=== PATIENT | female | born 1930 | race Caucasian/White ===

== ENCOUNTER 2016-11-27 22:36 | Emergency (ER) | payer MEDICARE, OTHER ==
[~2016-11-27] VITALS: Ht 160 cm; Wt 59.0 kg
[~2016-11-27 22:36] MED LIST: ALENDRONATE SOD70 MG PO; ATORVASTATIN CA40 MG PO; CITRACAL-VIT D1 EAC1 PO; CLOPIDOGREL75 MG PO; EFFEXOR XR37.5 MG PO; EVISTA60 MG PO; FAMOTIDINE20 MG PO; FLEXERIL10 MG PO; GABAPENTIN600 MG PO; GABAPENTIN800 MG PO; ISOSORBIDE DINI30 MG PO; ISOSORBIDE MONO30 MG PO; LEVAQUIN500 MG PO; LEVOTHYROXINE112 MCG PO; LISINOPRIL5 MG PO; MACRODANTIN25 MG PO; METOPROLOL TART25 MG PO; NEXIUM20 MG; NEXIUM20 MG PO; NEXIUM40 MG PO; NITROFURANTOIN100 M1 PO; NITROSTAT0.4 MG SL; OMEPRAZOLE20 M1 PO; PERCOCET 5-3251 EACH PO; RANITIDINE HCL150 MG PO; SENNA-TIME S T1 EACH PO; SIMVASTATIN10 MG PO; ST. JOSEPH ASPI81 M1 PO; ST. JOSEPH ASPI81 MG PO; TRAMADOL HCL50 MG PO; VENLAFAXINE HCL25 MG PO; VENLAFAXINE HCL75 MG PO; VITAMIN B-121000 MCG PO; VITAMIN D5000 UNIT PO; ZOFRAN4 MG PO
--- NOTE | 2016-11-28 08:39 | EKG ---
[facility] [address] [facility] [place] [address] Signed Sinus rhythm with marked sinus arrhythmia with occasional premature ventricular complexes ST \T\ T wave abnormality, consider lateral ischemia Abnormal ECG When compared with ECG of 07-APR-2016 19:15, premature ventricular complexes are now present T wave inversion now evident in Lateral leads Confirmed by KERRIE KABA MD ([id number]) on 11/28/2016 8:38:54 AM Electronically Signed By: KERRIE KABA MD 11/28/16 0839 PATIENT NAME: DAMIR ALEJANDRO Electrocardiogram DATE OF : 34 PHYSICIAN: KERRIE KABA MD REPORT #: [id number] REPORT IS CONFIDENTIAL AND NOT TO BE RELEASED WITHOUT AUTHORIZATION
== END 2016-11-28 00:35 | disposition home or self-care (01) ==
LOC: ED 22:36
DX: R07.2 Precordial pain (principal); E03.9 Hypothyroidism, unspecified; I25.2 Old myocardial infarction; Z79.82 Long term (current) use of aspirin; Z79.899 Other long term (current) drug therapy; Z90.49 Acquired absence of other specified parts of digestive tract; Z88.2 Allergy status to sulfonamides; Z88.5 Allergy status to narcotic agent; Z86.73 Personal history of transient ischemic attack (TIA), and cerebral infarction without residual deficits
CPT/HCPCS: 71010; 80053; 84484; 85025; 93005; 93010; 99284

== ENCOUNTER 2017-08-07 21:28 | Emergency (ER) | payer MEDICARE, OTHER ==
[~2017-08-07] VITALS: Ht 160 cm; Wt 59.0 kg
[2017-08-07] MEDS ORDERED: NORCO 5-325 TA1 EACH PO (23:25)
== END 2017-08-07 23:37 | disposition home or self-care (01) ==
LOC: ED 21:28
DX: S16.1XXA Strain of muscle, fascia and tendon at neck level, initial encounter (principal); S01.01XA Laceration without foreign body of scalp, initial encounter; Z88.2 Allergy status to sulfonamides; Z88.5 Allergy status to narcotic agent; Z79.899 Other long term (current) drug therapy; Z79.82 Long term (current) use of aspirin; Z23 Encounter for immunization; W01.198A Fall on same level from slipping, tripping and stumbling with subsequent striking against other object, initial encounter
CPT/HCPCS: 70450; 72125; 90471; 90715; 99284

== ENCOUNTER 2017-12-23 17:05 | Inpatient (IN) | payer MEDICARE, OTHER ==
[~2017-12-23] VITALS: Ht 167.6 cm; Wt 59.4 kg
--- OUTSIDE RECORDS SUMMARY | ~2017-12-23 | XMS | Encounter Summary ---
Demographics + + + | Address | [address] | | | [place] [address] | + + + | Home Phone | | + + + | Preferred Language | Unknown | + + + | Marital Status | | + + + | Yazdanism Affiliation | Unknown | + + + | Race | Unknown | + + + | Ethnic Group | Unknown | + + + Author + + + | Author | [facility] [employer] | + + + | Organization | [facility] [employer] | + + + | Address | Unknown | + + + | Phone | Unavailable | + + + Support + + +---------+ + | Name | Relationship | Address | Phone | + + +---------+ + | Get,Contact | ECON | Unknown | | + + +---------+ + Care Team Providers + +------+ + | Care Door To Door Sales Representative Name | Role | Phone | + +------+ + | Luanne Love | PCP | | + +------+ + Reason for Visit + + + | Reason | Comments | + + + | Medication Refill | | + + + Encounter Details +--------+--------+ + + + | Date | Type | Department | Care Team | Description | +--------+--------+ + + + | 11/08/ | Refill | [facility] [place] | Aidan Becker, | Medication Refill | | 2017 | | Cardiology [place] | [address] | | | | | [address] | [address], | | | | | [place] | [place] [address] | | | | | [address] | [phone] | | | | | [phone] | | | +--------+--------+ + + + [...] on file | | + + + as of this encounter Plan of Treatment +--------+---------+ + + + | Date | Type | Specialty | Care Team | Description | +--------+---------+ + + + | 02/07/ | Office | Cardiology | Brianna Stewart | | | 2018 | Visit | | [address] | | | | | | [address] | | | | | | [place] [address] | | | | | | [phone] | | | | | | | | +--------+---------+ + + + as of this encounter Visit Diagnoses Not on filein this encounter"
--- OUTSIDE RECORDS SUMMARY | ~2017-12-23 | XMS | Encounter Summary ---
Demographics + + + | Address | [address] | | | [place] [address] | + + + | Home Phone | | + + + | Preferred Language | Unknown | + + + | Marital Status | | + + + | Restoration Affiliation | Unknown | + + + | Race | Unknown | + + + | Ethnic Group | Unknown | + + + Author + + + | Author | [facility] [employer] | + + + | Organization | [facility] [employer] | + + + | Address | Unknown | + + + | Phone | Unavailable | + + + Support + + +---------+ + | Name | Relationship | Address | Phone | + + +---------+ + | Get,Contact | ECON | Unknown | | + + +---------+ + Care Team Providers + +------+ + | Care Converter Supervisor Name | Role | Phone | + [...] + | 11/08/ | Refill | [facility] [place] | Aidan Becker, | Medication Refill | | 2017 | | Cardiology [place] | [address] | | | | | [address] | [address], | | | | | [place] | [place] [address] | | | | | [address] | [phone] | | | | | [phone] | | | +--------+--------+ + + + [...] | | | | | [place] [address] | | | | | | [phone] | | | | | | | | +--------+---------+ + + + as of this encounter Visit Diagnoses Not on filein this encounter"
--- OUTSIDE RECORDS SUMMARY | ~2017-12-23 | XMS | Clinical Summary ---
Demographics + + + | Address | [address] | | | [place] [address] | + + + | Home Phone | | + + + | Preferred Language | Unknown | + + + | Marital Status | | + + + | Druze Affiliation | Unknown | + + + | Race | Unknown | + + + | Ethnic Group | Unknown | + + + Author + + + | Author | [facility] [employer] | + + + | Organization | [facility] [employer] | + + + | Address | Unknown | + + + | Phone | Unavailable | + + + Support + + +---------+ + | Name | Relationship | Address | Phone | + + +---------+ + | Get,Contact | ECON | Unknown | | + + +---------+ + Care Team Providers + +------+ + | Care Orchard Sprayer Name | Role | Phone | + [...] | e | + + +--------+---------+------+------+-------+ | levothyroxine | Take 112 mcg by | | | | | Activ | | (SYNTHROID) 112 MCG | mouth every morning | | | | | e | | tablet | before breakfast. | | | | | | + + +--------+---------+------+------+-------+ | traMADol (ULTRAM) | Take 50 mg by mouth | | | | | Activ | | 50 MG tablet | every 8 (eight) | | | | | e | | | hours as needed. | | | | | | + + +--------+---------+------+------+-------+ | cyanocobalamin | Take 1,000 mcg by | | | | | Activ | | (VITAMIN B-12) 1000 | mouth daily. | | | | | e | | MCG tablet | | | | | | | + + +--------+---------+------+------+-------+ | gabapentin | Take 800 mg by mouth | | | | | Activ | | (NEURONTIN) 800 MG | 3 (three) times | | | | | e | | tablet | daily. | | | | | | + + +--------+---------+------+------+-------+ | clopidogrel | Take 1 tablet by | 90 | 3 | 02/2 | | Activ | | (PLAVIX) 75 MG | mouth daily. | tablet | | 3/20 | | e | | tablet | | | | 16 | | | + + +--------+---------+------+------+-------+ | [...] | | | + + +--------+---------+------+------+-------+ | Cholecalciferol | Take 5,000 Units by | | | | | Activ | | 5000 UNITS capsule | mouth daily. | | | | | e | + + +--------+---------+------+------+-------+ | metoprolol | Take 1 tablet by | 180 | 3 | 11/0 | 11/0 | Activ | | (LOPRESSOR) 25 MG | mouth 2 (two) times | tablet | | 6/20 | 6/20 | e | | tablet | daily. | | | 17 | 18 | | + + +--------+---------+------+------+-------+ | isosorbide | TAKE 1 TABLET BY | 90 | 3 | /1 | 04/1 | Activ | | mononitrate (IMDUR) | MOUTH DAILY | tablet | | 0/20 | 0/20 | e | | 30 MG 24 hr tablet | | | | 18 | 19 | | + + +--------+---------+------+------+-------+ | gabapentin | Take 100 mg by mouth | | | | | Activ | | (NEURONTIN) 100 MG | 3 (three) times | | | | | e | | capsule | daily. | | | | | | + + +--------+---------+------+------+-------+ | | Take 1 tablet by | | | | | Activ | | HYDROcodone-acetamin | mouth every 6 (six) | | | | | e | | ophen (NORCO) 5-325 | hours as needed for | | | | | | | MG per tablet | Pain. | | | | | | + + +--------+---------+------+------+-------+ | simvastatin | Take 1 tablet by | 90 | 3 | 05/1 | | Activ | | (ZOCOR) 20 MG tablet | mouth nightly. | tablet | | 4/20 | | e | | | | | | 18 | | | + + +--------+---------+------+------+-------+ | famotidine | TAKE 1 TABLET BY | 180 | 1 | 08/27 | | Activ | | (PEPCID) 20 MG | MOUTH TWICE DAILY | tablet | | 07/16 | | e | | tablet | | | | 18 | | | + + +--------+---------+------+------+-------+ Active Problems + + + | Problem | Noted Date | + + + | Chronic kidney [...] | + + + + + | NSTEMI (non-ST elevated myocardial infarction) | 05/19/2015 | + + + | [...] | 05/19/2015 | + + + Encounters +--------+--------+ + + + | Date | Type | Specialty | Care Team | Description | +--------+--------+ + + + | 11/08/ | Refill | | Eugenio Javierzina, | Medication Refill | | 2017 | | | MD | | +--------+--------+ + + + from Last 3 Months [...] + + + | Blood Pressure | 126/54 | 08/09/2017 9:45 AM PDT | + + + + | Pulse | 62 | 08/09/2017 9:45 AM PDT | + + + + | Temperature | 36.8 C (98.3 F) | 05/21/2015 8:38 AM PST | + + + + | Respiratory Rate | 20 | 08/09/2017 9:45 AM PDT | + + + + | Oxygen Saturation | 95% | 08/09/2017 9:45 AM PDT | + + + + | Inhaled Oxygen | - | - | | Concentration | | | + + + + | Weight | 58.6 kg (129 lb 3.2 | 08/09/2017 9:45 AM PDT | | | oz) | | + + + + | Height | 160 cm (5' 3") | 08/09/2017 9:45 AM PDT | + + + + | Body Mass Index | 22.89 | 08/09/2017 9:45 AM PDT | + + + + Plan of Treatment +--------+---------+ + + + | Date | Type | Specialty | Care Team | Description | +--------+---------+ + + + | 02/07/ | Office | | Brianna Stewart | | | 2018 | Visit | | [address] | | | | | | [address] | | | | | | [place] [address] | | | | | | [phone] | | | | | | | [...] | | | | | (#1) | 8 | | | + + [...] | Heart | SCIENTIFIC | | | /[id number] | | Qty: 1 on 05/19/2015 by | | | [employer] | | | 322 | | Maxx Nayak MD | | | | | | | + +-------+-------+ +--------+--------+--------+ | Promus | Stent | N/A: | [employer] | | | / | | Premier-05/19/2015Implanted: | | Heart | SCIENTIFIC | | | /[id number] | | Qty: 1 on 05/19/2015 by | | | CORPORATION | | | [phone] | | Maxx [...] +------+-------+ + | MEDICARE | MEDICA | [id number] | | | [address] | | | RE | | | | [place] [address] | | | IP-OP | | | | | + +--------+ +------+-------+ + | COMMERCIAL OTHER | COMMER | [id number] | | | | | | CIAL [...] | [address] | | | [phone] | [phone] | + +--------+ +--------+ + +
--- OUTSIDE RECORDS SUMMARY | ~2017-12-23 | XMS | Clinical Summary ---
Demographics + + + | Address | [address] | | | [place] [address] | + + + | Home Phone | | + + + | Preferred Language | Unknown | + + + | Marital Status | | + + + | Shinto Affiliation | Unknown | + + + | Race | Unknown | + + + | Ethnic Group | Unknown | + + + Author + + + | Author | [employer] [employer] | + + + | Organization | [facility] [employer] | + + + | Address | Unknown | + + + | Phone | Unavailable | + + + Support + + +---------+ + | Name | Relationship | Address | Phone | + + +---------+ + | Get,Contact | ECON | Unknown | | + + +---------+ + Care Team Providers + +------+ + | Care Revenue Accountant Name | Role | Phone | + [...] | | | | | [place] [address] | | | | | | [phone] | | | | | | | [...] | Heart | SCIENTIFIC | | | /[id number] | | Qty: 1 on 05/19/2015 by | | | [employer] | | | 322 | | Maxx Nayak MD | | | | | | | + +-------+-------+ +--------+--------+--------+ | Promus | Stent | N/A: | [employer] | | | / | | Premier-05/19/2015Implanted: | | Heart | SCIENTIFIC | | | /[id number] | | Qty: 1 on 05/19/2015 by [...] +------+-------+ + | MEDICARE | MEDICA | [id number] | | | [address] | | | RE | | | | [place] [address] | | | IP-OP | | | | | + +--------+ +------+-------+ + | COMMERCIAL OTHER | COMMER | [id number] | | | | | | CIAL [...] | [address]uel | | | [phone] | [phone] | + +--------+ +--------+ + +
--- OUTSIDE RECORDS SUMMARY | ~2017-12-23 | XMS | Clinical Summary ---
Demographics + + + | Address | [address] | | | [place] [address] | + + + | Home Phone | | + + + | Preferred Language | Unknown | + + + | Marital Status | | + + + | Nondenominational Affiliation | Unknown | + + + | Race | Unknown | + + + | Ethnic Group | Unknown | + + + Author + + + | Author | [facility] [employer] | + + + | Organization | [facility] [employer] | + + + | Address | Unknown | + + + | Phone | Unavailable | + + + Support + + +---------+ + | Name | Relationship | Address | Phone | + + +---------+ + | Get,Contact | ECON | Unknown | | + + +---------+ + Care Team Providers + +------+ + | Care Grey Roll Man Name | Role | Phone | + [...] | | | | | [place] [address] | | | | | | [phone] | | | | | | | [...] | Heart | SCIENTIFIC | | | /[id number] | | Qty: 1 on 05/19/2015 by | | | [employer] | | | 322 | | Maxx Nayak MD | | | | | | | + +-------+-------+ +--------+--------+--------+ | [employer]us | Stent | N/A: | [employer] | | | / | | Premier-05/19/2015Implanted: | | Heart | SCIENTIFIC | | | /[id number] | | Qty: 1 on 05/19/2015 by [...] +------+-------+ + | MEDICARE | MEDICA | [id number] | | | [address] | | | RE | | | | [place] [address] | | | IP-OP | | | | | + +--------+ +------+-------+ + | COMMERCIAL OTHER | COMMER | [id number] | | | | | | CIAL [...] | [address]uel | | | [phone] | [phone] | + +--------+ +--------+ + +
--- OUTSIDE RECORDS SUMMARY | ~2017-12-23 | XMS | Encounter Summary ---
Demographics + + + | Address | [address] | | | [place] [address] | + + + | Home Phone | | + + + | Preferred Language | Unknown | + + + | Marital Status | | + + + | Christian Affiliation | Unknown | + + + | Race | Unknown | + + + | Ethnic Group | Unknown | + + + Author + + + | Author | [facility] [employer] | + + + | Organization | [facility] [employer] | + + + | Address | Unknown | + + + | Phone | Unavailable | + + + Support + + +---------+ + | Name | Relationship | Address | Phone | + + +---------+ + | Get,Contact | ECON | Unknown | | + + +---------+ + Care Team Providers + +------+ + | Care Stone Polisher Machine Name | Role | Phone | [...] + | 11/08/ | Refill | [facility] | Aidan Becker, | Medication Refill | | 2017 | | Cardiology [place] | [address] | | | | | [address] | [address], | | | | | [place] | [place] [address] | | | | | [address] | [phone] | | | | | [phone] | | | +--------+--------+ + + + [...] | | | | | [place] [address] | | | | | | [phone] | | | | | | | | +--------+---------+ + + + as of this encounter Visit Diagnoses Not on filein this encounter"
[~2017-12-23 17:05] MED LIST changes: +NORCO 5-325 TA1 EACH PO
--- OUTSIDE RECORDS SUMMARY | 2017-12-23 17:10 | XMS ---
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 ERadha VISIT COUNT (12 MO.) 2 [facility] Cross TOTAL 2 NOTE: Visits indicate total known visits. ED/UCC VISIT TRACKING (12 MO.) 12/23/2017 17:06 [facility] [place] TYPE: Emergency COMPLAINT: - STOMACH CRAMPS 08/07/2017 21:29 [facility] [place] TYPE: Emergency COMPLAINT: - HEAD LACERATION DIAGNOSES: - medical terminologist (current) use of aspirin - Fall on same level from slipping, tripping and stumbling with subsequent striking against other object, initial encounter - Other manager terminal (current) drug therapy - Allergy status to sulfonamides status - Encounter for immunization - Strain of muscle, fascia and tendon at neck level, initial encounter - Allergy status to narcotic agent status - Laceration without foreign body of scalp, initial encounter - Headache INPATIENT VISIT TRACKING (12 MO.) No inpatient visits to display in this time frame [email or web address]
[2017-12-23] MEDS ORDERED: GABAPENTIN100 MG PO (17:22)
[2017-12-23] MEDS ORDERED: ISOSORBIDE MONO30 MG PO (17:22)
[2017-12-23] MEDS ORDERED: TIROSINT100 MCG PO (17:23)
[2017-12-23] MEDS ORDERED: SIMVASTATIN20 MG PO (17:23)
--- NOTE | 2017-12-23 20:30 | NUR ---
PATIENT ARRIVED TO ROOM 127 VIA ER STRETCHER. TRANSFERED TO BED, NOW RESTING COMFORTABLY. BREATHING IS EVEN AND UNLABORED, DENIES NEED AT THIS THIS TIME. REPORTS OCCASIONAL PAIN IN LOWER BACK, EASILY RESTFUL WITH EYES CLOSED, FLACC SCORE OF 0. ASSESSMENT AND VITALS DONE. CALL LIGHT WITHIN REACH.
--- NOTE | 2017-12-23 21:00 | NUR ---
NOTIFIED DR. SANTOS REGARDING PATIENT'S INCREASED BUN AND CREATININE. RADIOLOGIST WISHES TO PROCEED WITH CT SCAN WITHOUT CONTRAST. IF UNABLE TO READ RESULTS FROM SCAN, WILL READDRESS USING CONTRAST IN THE MORNING, DR. SANTOS IS AGREEABLE.
--- NOTE | 2017-12-23 21:30 | NUR ---
PATIENT TAKEN TO CT VIA HOSPITAL BED.
--- NOTE | 2017-12-23 21:50 | NUR ---
PATIENT BACK FROM CT, RESTING IN BED COMFORTABLY, BREATHING IS EVEN AND UNLABORED. NO NEEDS AT THIS TIME. CALL LIGHT WITHIN REACH.
--- NOTE | 2017-12-23 23:38 | NUR ---
PATIENT ASSISTED TO BEDSIDE COMMODE, 1PA, ABLE TO VOID. NOW RESTING IN BED, BREATHING IS EVEN AND UNLABORED. DENIES FURTHER NEEDS AT THIS TIME. CALL LIGHT WITHIN REACH.
--- NOTE | 2017-12-24 01:10 | NUR ---
PATIENT RESTING IN BED, BREATHING IS EVEN AND UNLABORED. FLACC SCORE OF 0. CALL LIGHT WITHIN REACH.
--- NOTE | 2017-12-24 03:47 | NUR ---
PATIENT RESTING COMFORTABLY IN BED, BREATHING IS EVEN AND UNLABORED. FLACC SCORE OF 0. CALL LIGHT WITHIN REACH.
--- NOTE | 2017-12-24 06:00 | NUR ---
PATIENT REPORTS 8/10 PAIN IN ABD AND NAUSEA. PRN DILAUDID AND ZOFRAN GIVEN. ASSISTED PATIENT TO BEDSIDE COMODE, 1PA. NOW RESTING IN BED AGAIN, BREATHING IS EVEN AND UNLABORED. DENIES FURTHER NEEDS. CALL LIGHT WITHIN REACH.
[2017-12-24] MEDS ORDERED: PREDNISONE20 MG PO (06:22)
--- NOTE | 2017-12-24 08:40 | NUR ---
PT UP TO BATHROOM HAD BLOOD STOOL IN TOLIET AND THEN AMBULATED BACK TO BED. PT IS A ONE PERSON ASSISTANCE.
--- NOTE | 2017-12-24 10:15 | NUR ---
PT CONTIOUES TO SLEEP AT THIS TIME, PT FAMILY HAS LEFT AFTER ALL QUESTIONS ANSWERED FOR THEM.
--- NOTE | 2017-12-24 10:37 | NUR ---
ASSISTED TO FIND PT'S ROOM. WILL FOLLOW NEEDED
[2017-12-24] MEDS ORDERED: LEVOTHYROXINE100 MCG PO (10:54)
--- NOTE | 2017-12-24 12:28 | NUR ---
PT AWAKE, ALAERT AND EATING SOME JELLO. GOOD, BRIEF VISIT. SHE WAS HAVING TROUBLE EATING HER JELLO BECAUSE OF THE POSITION OF HER BED, AND IV ALARM WAS GOING. EXTENDED A BLESSING AND ALERTED JULIAN CHICAS. WILL FOLLOW NEEDED
--- NOTE | 2017-12-24 12:29 | NUR ---
PT UP TO BS COMMODE VOIDED LARGE AMOUNT AND HAD A SMALL AMOUNT OF SONDRA RED BLOOD. PT ABLE TO AMBULATED FROM BED TO BS COMMODE, WITH ONE PERSON ASSISTANCE. PT SET UP FOR LUNCH AND IS CURRENTLY WORKING ON HER CLEAR LIQUIDS.
--- NOTE | 2017-12-24 13:40 | NUR ---
PT IS BACK TO SEE PT AT THIS TIME. PT DID DRINK SOME OF HER CLEAR LIQUIDS.
--- NOTE | 2017-12-24 14:00 | NUR ---
MED REC COMPLETE WITH MELVIN REFILL HISTORY
--- NOTE | 2017-12-24 15:31 | NUR ---
PT APPEARS TO BE SLEEPING AT THIS TIME, PT IS ON TELE # 1.
--- NOTE | 2017-12-24 16:40 | NUR ---
REPORT CALLED TO EMILY AT THIS TIME, ALL QUESTIONS ANSWERED. PT TRANSPORTED VIA WC TO ROOM 119, PT PRESENT FOR THE TRANSFER SO NOW HE KNOWS WHERE SHE IS. ALL PERSOANL BELONGINGS SENT WITH PT.
--- NOTE | 2017-12-24 16:50 | NUR ---
87YR OLD WOMAN ADMITTED FROM CCU VIA WC ACCOMPANIED BY TO ROOM 119. PT IS ALERT, IN GOOD SPIRITS. ABLE TO STAND AND TRANSFER ONTO BED WITH ONE PERSON ASSIST. C/O BACK PAIN WITH ACTIVITY. STATES SHE HAS SUFFERED FROM SCIATICA PAIN FOR QUITE A WHILE. DENIES NEED TO VOID. ORIENTED TO ROOM AND CALL LIGHT. IVF PATENT TO R AC. ORDERS NOTED.
--- NOTE | 2017-12-24 19:20 | NUR ---
BEDSIDE REPORT RECEIVED FROM OFFGOING RNEMILY. PT DENIES NEEDS AT THIS TIME. CALL LIGHT WITHIN REACH. PT AGREES TO USE FOR NEEDS.
--- NOTE | 2017-12-24 21:18 | NUR ---
CHARGE NURSE ROUNDING NOTE: PT INCONTINENT OF LARGE AMOUNTS OF URINE IN BED, WEARING ATTENDS, UP TO BRP WITH ONE PERSON ASSIST AND FWW, SKIN CLEANSED VOIDED SOME MORE 350CC CLEAR URINE, BACK TO BED, TOLERATED WELL. CALL LIGHT, AND FLUIDS AT BEDSIDE, BED ALARM ON
--- NOTE | 2017-12-24 21:57 | NUR ---
PT ASSESSMENT COMPLETE. PT DENIES NAUSEA OR SOB AT THIS TIME. PT REPORTS PAIN 5/10 TO HER BACK, DESCRIBES BURNING PAIN. PRN TYLENOL ADMINISTERED. BT'S ACTIVE. PT PASSING FLATUS WHILE ATHLETIC MONITOR IN ROOM. PT DENIES ABD TENDERNESS. PT DENIES NEEDS AT THIS TIME. CALL LIGHT WITHIN REACH.
--- NOTE | 2017-12-24 23:00 | NUR ---
PT RESTING WITH EYES CLOSED. PT WAKES BRIEFLY WHILE SCHEDULED IV ABX BEING ADMINISTERED. PT DENIES NEEDS AT THIS TIME. CALL LIGHT WITHIN REACH.
--- NOTE | 2017-12-25 00:39 | NUR ---
HELPED PT TO THE BATHROOM AND BACH TO BED WITH HER FWW. BEDSIDE TABLE AND CALL LIGHT IN REACH. PT NEEDS NOTHING ELSE AT THIS TIME.
--- NOTE | 2017-12-25 01:42 | NUR ---
PT RESTING IN BED WITH EYES OPEN. PT STATES THAT SHE HAS BEEN TOSSING AND TURNING. PT RATES PAIN 4/10 TO BACK. STATES THAT REPOSITIONING HELPS WITH PAIN. PT ASSESSMENT COMPLETE. BT'S ACTIVE. PT REPORTS PAIN TO LLQ UPON PALPATION. PT DENIES FURTHER NEEDS AT THIS TIME. CALL LIGHT WITHIN REACH.
--- NOTE | 2017-12-25 02:41 | NUR ---
PT ASSSITED UP TO RESTROOM WITH 1 PERSON ASSIST AND FWW. PT VOIDS 300 MLS CLEAR YELLOW URINE AND WAS ASSSITED BACK INTO BED. PT STATES SHE IS COMFORTABLE AND CALL LIGHT ADN H20 IN REACH. PT DENIES FURTHER NEEDS.
--- NOTE | 2017-12-25 04:59 | NUR ---
PT SLEPT MAJORITY OF SHIFT. TYLENOL X 1 FOR BACK PAIN. BT'S ACTIVE, ABD SLIGHTLY TENDER. NO S/SX OF BLEEDING THIS SHIFT. CRACKLES NOTED TO LUNGS FIRST ASSESSMENT, CLEAR THE SECOND ASSESSMENT. ENCOURAGE COUGH AND DEEP BREATHING. TELE #1, SR, HR 70'S-80'S. 1 PA TO BR. UO QS. D5NS +20K @ 100. CLEAR LIQ. DIET.
--- NOTE | 2017-12-25 09:59 | NUR ---
TALKED TO DR WILLINGHAM REGARDING INCREASED BP. WILL RESTART HOME MEDS.
--- NOTE | 2017-12-25 10:11 | NUR ---
pt was assisted tot he bathroom, pt had a BM with blood in it, nurse notified. pt was then assisted back to bed and is now resting safely in bed with call light reach. pt was offered a shower and said she would think about it
--- NOTE | 2017-12-25 13:15 | NUR ---
PT AND GIVEN HOT TEA. BOTH DENIED CONCERNS.
--- NOTE | 2017-12-25 14:17 | NUR ---
pt is resting in bed safely with call light in reach. pt was offered a shower again, but still does not want to shower. assisted pt to reposition higher in bed. pt asked for a warm blanket
--- NOTE | 2017-12-25 16:47 | NUR ---
PT UP TO RESTROOM WITH POTATO SPOTTER. SBA.
--- NOTE | 2017-12-25 18:13 | NUR ---
PT 1PA WITH FWW. TOLERATING CLEAR LIQUID. TELE DC'D. BLOOD IN BOWEL MOVEMENTS. A\O. DENIES CONCERNS. IVF INFUSING WNL. DENIES PAIN OR NAUSEA. BT ACTIVE.
--- NOTE | 2017-12-25 18:21 | NUR ---
pt is resting in bed safely with call light in reach. pt asked for more ice water.
--- NOTE | 2017-12-25 21:01 | NUR ---
CHARGE NURSE ROUNDING NOTE: INCONTINENT OF URINE IN ATTENDS, UP TO BRP, VOIDED 350 CLEAR URINE, CLEAN ATTENDS IN PLACE. BACK TO BED, WARM BLANKET AND FRESH ICED WATER GIVEN ON REQUESTS. REQUIRES ONE PERSON ASSIST AND FWW. NO C/O PAIN OR SOB, TOLERATED WELL
--- NOTE | 2017-12-25 22:14 | NUR ---
UP TO BRP, VOIDED CLEAR URINE, AND HAD A SMALL SOFT BROWN BM. BACK TO BED. IV R AC 18G DC'D IT GOT ACCIDENTALLY CAUGHT IN THE BED COVERS, IV TIP INTACT. 2X2 IN PLACE.
--- NOTE | 2017-12-26 00:01 | NUR ---
resting, no c/o pain, no distress
--- NOTE | 2017-12-26 00:23 | NUR ---
scheduled antiobiotics administered. pt up to use the bathroom with sba. pt incontinent of small amount of stool, pt assisted to clean herself, and new attends placed. pt back to bed with sba. pt denies other needs at this time. call light within reach.
--- NOTE | 2017-12-26 03:04 | NUR ---
Eyes closed, awakens easily, no requets, no c/o pain, turns self in bed
--- NOTE | 2017-12-26 06:26 | NUR ---
PT CURRENTLY RESTING, EYES CLOSED, NO C/O PAIN. HAS NOT C/O PAIN AT ALL THIS SHIFT. HAS BEEN UP TO BRP SEVERAL TIMES, VOIDING CLEAR YELLOW URINE, HAS HAD SEVERAL SMALL SOFT BMS, DARK BROWN IN COLOR. INCONTINENT OF B/B X2. - NO C/O N/V, TOLERATING CLEAR FLUIDS, LUNGS DIM AT BASES. CLEARED WTIH CDB. NO COUGH PRESENT AT THIS TIME. PT REQUIRES ONE PERSON ASSIST AND FWW. COOPERATIVE WITH ASSESSMENT. NO C/O ADVERSE REACTION TO IV ABX.
--- NOTE | 2017-12-26 07:41 | NUR ---
PATIENT AWAKE, RESTING IN BED. THIS CONFORMAL PAD FORMER ASSISTED PATIENT TO REPOSITION INTO A SITTING UP POSITION IN BED. PATIENT REFUSED TO SIT UP IN CHAIR. PATIENT WASHED HANDS AND FACE WITH A WARM WASH CLOTH. PATIENT EATING BREAKFAST. CALL LIGHT IN REACH. NO OTHER NEEDS AT THIS TIME.
--- NOTE | 2017-12-26 08:46 | NUR ---
PATIENT CALLED FOR ASSISTANCE UP TO THE BATHROOM. THIS PRESS OPERATOR MEAT ASSISTED PATIENT TO BATHROOM, PATIENT PERFORMED COMPLETE BED BATH WITH BATH WIPES INDEPENDENTLY. PATIENT PERFORMED ORAL CARE AT SINK, AND COMBED HER HAIR. PATIENT DRESSED IN CLEAN GOWN. LINENS CHANGED. PATIENT BACK IN BED WITH WARM BLANKETS AND CALL LIGHT IN REACH. NO OTHER NEEDS AT THIS TIME.
--- NOTE | 2017-12-26 09:22 | NUR ---
PT AWAKE IN BED WATCHING TV AND VISITING WITH . PT DENIES PAIN OR OTHER CONCERNS. ALERT AND ORIENTED. HAD CLEAR LIX THIS AM, GEOVANNY WELL, DENIES NAUSEA. SL FLUSHES WELL. CALL LIGHT WITHIN REACH.
--- NOTE | 2017-12-26 10:17 | NUR ---
PATIENT RESTING IN BED, FAMILY IN ROOM. CALL LIGHT IN REACH. NO OTHER NEEDS AT THIS TIME.
--- NOTE | 2017-12-26 11:10 | NUR ---
PT ADVANCED TO REG DIET. ASSISTED TO ORDER LUNCH. SITTING UP IN BED VISITING WITH . DENIES NEEDS OR CONCERNS AT THIS TIME. CALL LIGHT WITHIN REACH.
--- NOTE | 2017-12-26 13:14 | NUR ---
PT ASSISTED TO AMB TO RESTROOM. ATE ALL OF REG LUNCH, GEOVANNY WELL. ASSISTED BACK TO BED. SON IN ROOM. CALL LIGHT WITHIN REACH.
--- NOTE | 2017-12-26 14:41 | NUR ---
pateint visiting with son, daughter is bringing her a chocolate milkshake because her diet has been moved up to regular and she is resting in bed, vital signs done she needs no other assistance at this time
--- NOTE | 2017-12-26 15:10 | NUR ---
PT SL AFTER INFUSION COMPLETE. ASSISTED TO RESTROOM, SBA WITH WALKER. VOIDED WITHOUT DIFFICULTY. AMB BACK TO BED, CALL LIGHT WITHIN REACH.
--- NOTE | 2017-12-26 17:44 | NUR ---
PT SITTING UP IN BED EATING DINNER, WATCHING TV. DENIES NEEDS OR CONCERNS AT THIS TIME. CALL LIGHT WITHIN REACH.
--- NOTE | 2017-12-26 21:08 | NUR ---
COOP WITH ASSEMMENT
--- NOTE | 2017-12-26 21:54 | NUR ---
PT CALLED, SAID IV LEAKING. FLUSHED IV WITH NOTABLE LEAKING FROM INSERTION SITE. DC'D WNL. PRESSURE DRESSING APPLIED.
--- NOTE | 2017-12-26 23:54 | NUR ---
RESTING, EYES CLOSED, NO RESP DISTRESS ON ROOM AIR, NEW IV SITE INTACT. CALL LIGHT AND FLUIDS WITHIN HANDS REACH
--- NOTE | 2017-12-27 00:34 | NUR ---
PATIENT JUST AMBULATED TO THE BATHROOM AND BACK AGAIN AFTER VOIDING 200MLS. CALL LIGHT IS IN REACH.
--- NOTE | 2017-12-27 01:49 | NUR ---
Resting, eyes closed, no c/o pian.
--- NOTE | 2017-12-27 02:52 | NUR ---
PATIENT UP TO THE BATHROOM WITH SBA AND FWW AND THEN BACK TO BED. CALL LIGHT IN REACH.
--- NOTE | 2017-12-27 08:00 | NUR ---
PATIENT SITING UP IN CHAIR. PATIENT ASK FOR BREAKFAST. FACE AND HANDS CLEANED. FERTILIZER MIXER ORDER HER BREAKFAST. CALL LIGHT WITHIN REACH. NO OTHER NEEDS AT THIS TIME.
--- NOTE | 2017-12-27 08:46 | NUR ---
MORNING ASSESSMENT AND MEDICATIONS DUE. THIS RN TO BEDSIDE PT RESTING IN BED. NO REQUESTS OR COMPALINTS. PT DENIES PAIN AND NAUSEA. ASSESSMENT DONE. MEDICATIONS GIVEN. ARRIVED. AND PT UPDATED ON PLAN OF CARE. PT EATING BREAKFAST. NO REQUESTS OR COMPLAINTS. CALL LIGHT WITHIN REACH. BED RAILS UP. AT BEDSIDE.
--- NOTE | 2017-12-27 09:14 | NUR ---
PATIENT RESTING IN BED. DAUGHTER IN ROOM. VITALS AND I&O DONE. CALL LIGHT WITHIN REACH. NO OTHER NEEDS AT THIS TIME.
[2017-12-27] MEDS ORDERED: LEVAQUIN250 MG PO (10:45)
[2017-12-27] MEDS ORDERED: METRONIDAZOLE500 MG PO (10:46)
--- NOTE | 2017-12-27 11:03 | NUR ---
DISCHARGE INSTRUCTIONS REVIEWED WITH PT AND PT AND VERBALIZE UNDERSTANDING OF INSTRUCTIONS AND STATE THEIR QUESTIONS HAVE BEEN ANSWERED. PT ASSITED UP TO RESTROOM. PIV DC'D PER PROTOCOL. GAUZE AND COBAN APPLIED. VITALS TAKEN. PT DRESSING WITH ASSISTANCE FROM . NO ADDITIONAL REQUESTS OR COMPLAINTS AT THSI TIME. WAITING FOR PHARMACIST CONSULT.
--- NOTE | 2017-12-27 12:00 | NUR ---
PT DRESSED AND READY FOR DISCHARGE. PHARMACIST HAS VISITED. PT TRANSFERES SELF TO WHEEL CHAIR AND STATES ALL HER QUESTIONS HAVE BEEN ANSWERED. PT WHEELED FROM MED/SURG.
--- NOTE | 2017-12-27 13:21 | NUR ---
PT LAYING QUIETLY IN BED, WATCHING TV. PT IS VERY FRIENDLY, MENTIONED THAT SHE IS TO BE DC'D TODAY. SHE ALSO SAID THAT SHE IS FEELING MUCH BETTER-SAID WITH A BIG SMILE! EXTENDED A BLESSING, WILL FOLLOW NEEDED
== END 2017-12-27 12:00 | disposition home or self-care (01) | DRG 379 ==
LOC: ED 17:05 → CCU 19:55 → MS 12-24 16:54
PROVIDERS: ADMIT Internal Medicine
DX: K57.93 Diverticulitis of intestine, part unspecified, without perforation or abscess with bleeding (principal); D64.9 Anemia, unspecified; E03.9 Hypothyroidism, unspecified; D50.9 Iron deficiency anemia, unspecified; E78.5 Hyperlipidemia, unspecified; I25.10 Atherosclerotic heart disease of native coronary artery without angina pectoris; Z95.5 Presence of coronary angioplasty implant and graft; Z79.02 Long term (current) use of antithrombotics/antiplatelets; Z79.82 Long term (current) use of aspirin; Z79.891 Long term (current) use of opiate analgesic; Z79.899 Other long term (current) drug therapy; Z88.5 Allergy status to narcotic agent; Z88.2 Allergy status to sulfonamides
CPT/HCPCS: 36415; 74176; 80048; 80053; 85025; 85610; 85730; 86850; 86900; 86901; 96374; 96375; 99285; J1170; J1956; J2405

== ENCOUNTER 2019-02-11 20:07 | Emergency (ER) | payer MEDICARE, OTHER ==
[~2019-02-11] VITALS: Ht 167.6 cm; Wt 59.0 kg
--- OUTSIDE RECORDS SUMMARY | ~2019-02-11 | XMS | Encounter Summary ---
Demographics + + + | Address | [address] | | | [place] [address] | + + + | Home Phone | | + + + | Preferred Language | Unknown | + + + | Marital Status | Unknown | + + + | Congregation Affiliation | Unknown | + + + | Race | Unknown | + + + | Ethnic Group | Unknown | + + + Author + + + | Author | [facility] | | | and [place] | + + + | Organization | [facility] | | | and [place] | [...] Team Providers + +------+ + | Care Passenger Service Agent Name | Role | Phone | + +------+ + | Luanne Love | PCP | | | PA | | | + +------+ + Encounter Details +--------+ + + + + | Date | Type | Department | Care Team | Description | +--------+ + + + + | 01/27/ | Orders Only | [facility] | Brianna Stewart | | | 2018 | | [address] | [address] | | | | | [address] | MICHELLE KAUFMAN | | | | | [place], [place] | [place] [address] | | | | | [address] | [phone] | | | | | [phone] | | | +--------+ + + + + Social History + +-------+ +--------+------+ | Tobacco Use | Types | Packs/Day | Years | Date | | | | | Used | | + +-------+ +--------+------+ | Never Assessed | | | | | + +-------+ [...] as of this encounter Plan of Treatment Not on filedocumented as of this encounter Procedures + +--------+ + + + | Procedure Name | Priori | Date/Time | Associated Diagnosis | Comments | | | ty | | | | + +--------+ + + + | ECHO INTERPRETATION | Routin | 01/27/2018 | | Results for this | | OF OUTSIDE FILMS | e | 11:59 AM | | procedure are in the | | | | PDT | | results section. | + +--------+ + + + documented in this encounter Results ECHO Interpretation of Outside Films (01/27/2018 11:59 AM PDT) + + | Specimen | + + | | + + + + + | Impressions | Performed At | + + + | 1. The left ventricle is normal in size, mildly impaired systolic | | | function EF 45-50%. Severe hypokinesis of the inferior and inferobasal | | | segments. 2. The right ventricle is normal in size and function. 3. | | | There is no pericardial effusion. | | + + + + + + | Narrative | Performed At | + + + | Patient Name: DAMIR ALEJANDRO Date of : 1930 | | | Performing Physician: Aidan Becker | | | | | | INDICATIONS CAD CONCLUSIONS 1. The | | | left ventricle is normal in size, mildly impaired systolic function EF | | | 45-50%. Severe hypokinesis of the inferior and inferobasal segments. | | | 2. The right ventricle is normal in size and function. 3. There is | | | no pericardial effusion. FINDINGS -------- ECG rhythm: Sinus | | | rhythm. Study: A 2-dimensional transthoracic echocardiogram with | | | m-mode, spectral and color flow Doppler was perfomed. Study: This was | | | a technically difficult study with suboptimal views. Left Ventricle: | | | Overall left ventricular systolic function is mildly impaired with, | | | an EF estimated around 45-50%. Left Ventricle: The left ventricle | | | cavity size is normal. Left Ventricle: Left ventricular wall | | | thickness is normal. Left Ventricle: Inferior and inferobasal severe | | | hypokinesis. Right Ventricle: The right ventricle is normal in size | | | and function. Left Atrium: The left atrium is normal in size. Right | | | Atrium: The right atrium is normal in size. Aortic Valve: The aortic | | | valve is trileaflet. Aortic Valve: There is mild aortic | | | regurgitation. Aortic Valve: There is no evidence of aortic stenosis. | | | Mitral Valve: Mild mitral regurgitation is present. Mitral Valve: | | | Mild mitral annular calcification present. Tricuspid Valve: The | | | tricuspid valve appears structurally normal. Tricuspid Valve: | | | Pulmonary artery systolic pressure could not be assessed due to the | | | absence of adequate TR jet. Pulmonic Valve: The pulmonic valve was | | | not well visualized. Pulmonic Valve: Mild pulmonic regurgitation. | | | Pericardium: There is no pericardial effusion. Pericardium: No | | | pleural effusion seen. IVC/Hepatic Veins: The inferior vena cava is | | | normal in size and collapses > 50 % with sniff, indicating normal | | | central venous pressures. Aorta: The aortic root, ascending aorta and | | | aortic arch are normal. MEASUREMENTS Ao asc: | | | 3.05 cm Ao sinus: 2.[address] junct: 2.39 cm IVC: 1.39 | | | cm LA Diam: 2.28 cm EDV(Teich): 139.33 ml IVSd: 0.81 cm | | | LVIDd: 5.36 cm LVPWd: 0.48 cm LVOT Area: 3.17 cm2 LVOT | | | Diam: 2.01 cm %FS: 13.00 % EF(Teich): 27.65 % ESV(Teich): | | | 100.79 ml LVIDs: 4.66 cm SV(Teich): 38.53 ml RVIDd: | | | 2.57 cm LAESV(A-L): 31.09 ml LAESV Index (A-L): 19.31 ml/m2 | | | LAAs A2C: 11.42 cm2 LAESV A-L A2C: 27.79 ml LALs A2C: 3.98 | | | cm LAAs A4C: 12.18 cm2 LAESV A-L A4C: 33.17 ml LALs A4C: | | | 3.80 cm RAAs: 8.87 cm2 RAESV A-L: 20.88 ml RAESV MOD: | | | 21.09 ml RALs: 3.19 cm TAPSE: 1.39 cm AV maxP.26 mmHg | | | AV meanP.80 mmHg AV Vmax: 1.03 m/s AV Vmean: 0.61 m/s | | | AV VTI: 18.51 cm ROSIE Vmax: 1.99 cm2 ROSIE (VTI): 2.59 cm2 | | | AVAI (Vmax): 0.00 cm2/m2 AVAI (VTI): 0.00 cm2/m2 LVOT maxPG: | | | 1.68 mmHg LVOT meanP.91 mmHg LVSI Dopp: 29.78 ml/m2 | | | LVSV Dopp: 47.95 ml LVOT Vmax: 0.64 m/s LVOT Vmean: 0.44 | | | m/s LVOT VTI: 15.11 cm MV A Zack: 0.91 m/s MV Dec Hays: | | | 3.30 m/s2 MV DecT: 110.08 ms MV E Zack: 0.36 m/s MV E/A Ratio: | | | 0.39 MV PHT: 31.92 ms MVA By PHT: 6.89 cm2 Septal e': | | | 0.02 m/s Septal E/e': 17.87 Nibbler Operator: DBS Authenticated | | | by: Aidan [facility] Report Date/Time: 01-27-2018 20:31:19 | | + + + + + | Procedure Note | + + | Rogers Haddad - 11/17/2018 4:44 PM PDT Patient Name: Aissatou ALEJANDRO of | | : 1930 Performing Physician: Aidan | | Eugenio INDICATIONS------ | | -----CAD CONCLUSIONS 1. The left ventricle is normal in size, mildly impaired | | systolic function EF 45-50%. Severe hypokinesis of the inferior and inferobasal | | segments.2. The right ventricle is normal in size and function.3. There is no | | pericardial effusion. FINDINGS--------ECG rhythm: Sinus rhythm.Study: A 2-dimensional | | transthoracic echocardiogram with m-mode, spectral and color flow Doppler was | | perfomed.Study: This was a technically difficult study with suboptimal views.Left | | Ventricle: Overall left ventricular systolic function is mildly impaired with, an EF | | estimated around 45-50%.Left Ventricle: The left ventricle cavity size is normal.Left | | Ventricle: Left ventricular wall thickness is normal.Left Ventricle: Inferior and | | inferobasal severe hypokinesis.Right Ventricle: The right ventricle is normal in size | | and function.Left Atrium: The left atrium is normal in size.Right Atrium: The right | | atrium is normal in size.Aortic Valve: The aortic valve is trileaflet.Aortic Valve: | | There is mild aortic regurgitation.Aortic Valve: There is no evidence of aortic | | stenosis.Mitral Valve: Mild mitral regurgitation is present.Mitral Valve: Mild mitral | | annular calcification present.Tricuspid Valve: The tricuspid valve appears structurally | | normal.Tricuspid Valve: Pulmonary artery systolic pressure could not be assessed due to | | the absence of adequate TR jet.Pulmonic Valve: The pulmonic valve was not well | | visualized.Pulmonic Valve: Mild pulmonic regurgitation.Pericardium: There is no | | pericardial effusion.Pericardium: No pleural effusion seen.IVC/Hepatic Veins: The | | inferior vena cava is normal in size and collapses > 50 % with sniff, indicating normal | | central venous pressures.Aorta: The aortic root, ascending aorta and aortic arch are | | normal. MEASUREMENTS Ao asc: 3.05 cmAo sinus: 2.[address] junct: 2.39 | | cmIVC: 1.39 cmLA Diam: 2.28 cmEDV(Teich): 139.33 mlIVSd: 0.81 cmLVIDd: 5.36 | | cmLVPWd: 0.48 cmLVOT Area: 3.17 [id number] Diam: 2.01 cm%FS: 13.00 %EF(Teich): | | 27.65 %ESV(Teich): 100.79 mlLVIDs: 4.66 cmSV(Teich): 38.53 mlRVIDd: 2.57 | | cmLAESV(A-L): 31.09 mlLAESV Index (A-L): 19.31 ml/m2LAAs A2C: 11.42 [id number] A-L | | A2C: 27.79 mlLALs A2C: 3.98 cmLAAs A4C: 12.18 [id number] A-L A4C: 33.17 mlLALs | | A4C: 3.80 cmRAAs: 8.87 qt2SBIZG A-L: 20.88 mlRAESV MOD: 21.09 mlRALs: 3.19 | | cmTAPSE: 1.39 cmAV maxP.26 mmHgAV meanP.80 mmHgAV Vmax: 1.03 m/Damaris | | Vmean: 0.61 m/Damaris VTI: 18.51 cmAVA Vmax: 1.99 cm2AVA (VTI): 2.59 [id number] (Vmax): | | 0.00 cm2/m2AVAI (VTI): 0.00 cm2/m2LVOT maxP.68 mmHgLVOT meanP.91 | | mmHgLVSI Dopp: 29.78 ml/m2LVSV Dopp: 47.95 mlLVOT Vmax: 0.64 m/sLVOT Vmean: 0.44 | | m/sLVOT VTI: 15.11 cmMV A Zack: 0.91 m/sMV Dec [place]ays: 3.30 m/s2MV DecT: 110.08 | | msMV E Zack: 0.36 m/sMV E/A Ratio: 0.39MV PHT: 31.92 msMVA By PHT: 6.89 [id number] | | e': 0.02 m/sSeptal E/e': 17.87 Nibbler Operator: DBSAuthenticated by: Aidan | | [facility] Date/Time: 01-27-2018 20:31:19 IMPRESSION: 1. The left ventricle is normal | | in size, mildly impaired systolic function EF 45-50%. Severe hypokinesis of the | | inferior and inferobasal segments.2. The right ventricle is normal in size and | | function.3. There is no pericardial effusion. | |Aorta: The aortic root, ascending aorta and aortic arch are normal. | | | |MEASUREMENTS | | | |Ao asc: 3.05 cm | |Ao sinus: 2.79 cm | |Ao st junct: 2.39 cm | |IVC: 1.39 cm | |LA Diam: 2.28 cm | |EDV(Teich): 139.33 ml | |IVSd: 0.81 cm | |LVIDd: 5.36 cm | |LVPWd: 0.48 cm | |LVOT Area: 3.17 cm2 | |LVOT Diam: 2.01 cm | |%FS: 13.00 % | |EF(Teich): 27.65 % | |ESV(Teich): 100.79 ml | |LVIDs: 4.66 cm | |SV(Teich): 38.53 ml | |RVIDd: 2.57 cm | |LAESV(A-L): 31.09 ml | |LAESV Index (A-L): 19.31 ml/m2 | |LAAs A2C: 11.42 cm2 | |LAESV A-L A2C: 27.79 ml | |LALs A2C: 3.98 cm | |LAAs A4C: 12.18 cm2 | |LAESV A-L A4C: 33.17 ml | |LALs A4C: 3.80 cm | |RAAs: 8.87 cm2 | |RAESV A-L: 20.88 ml | |RAESV MOD: 21.09 ml | |RALs: 3.19 cm | |TAPSE: 1.39 cm | |AV maxP.26 mmHg | |AV meanP.80 mmHg | |AV Vmax: 1.03 m/s | |AV Vmean: 0.61 m/s | |AV VTI: 18.51 cm | |ROSIE Vmax: 1.99 cm2 | |ROSIE (VTI): 2.59 cm2 | |AVAI (Vmax): 0.00 cm2/m2 | |AVAI (VTI): 0.00 cm2/m2 | |LVOT maxP.68 mmHg | |LVOT meanP.91 mmHg | |LVSI Dopp: 29.78 ml/m2 | |LVSV Dopp: 47.95 ml | |LVOT Vmax: 0.64 m/s | |LVOT Vmean: 0.44 m/s | |LVOT VTI: 15.11 cm | |MV A Zack: 0.91 m/s | |MV Dec Hays: 3.30 m/s2 | |MV DecT: 110.08 ms | |MV E Zack: 0.36 m/s | |MV E/A Ratio: 0.39 | |MV PHT: 31.92 ms | |MVA By PHT: 6.89 cm2 | |Septal e': 0.02 m/s | |Septal E/e': 17.87 | | | |Nibbler Operator: DBS | |Authenticated by: Aidan Becker | |Report Date/Time: 01-27-2018 20:31:19 | | | |IMPRESSION: | |1. The left ventricle is normal in size, mildly impaired systolic function EF 45-50%. Sever e hypokinesis of the inferior and inferobasal segments. | |2. The right ventricle is normal in size and function. | |3. There is no pericardial effusion. | + + documented in this encounter Visit Diagnoses Not on filedocumented in this encounter"
--- OUTSIDE RECORDS SUMMARY | ~2019-02-11 | XMS | Encounter Summary ---
Demographics + + + | Address | [address] | | | [place] [address] | + + + | Home Phone | | + + + | Preferred Language | Unknown | + + + | Marital Status | Unknown | + + + | Taoist Affiliation | Unknown | + + + | Race | Unknown | + + + | Ethnic Group | Unknown | + + + Author + + + | Author | [facility] | | | and [place] | + + + | Organization | [facility] | | | and [place] | [...] Team Providers + +------+ + | Care Heel Sprayer First Name | Role | Phone | + [...] [address] | | | | | [address] | [address] | | | | | [address] | [place] [address] | | | | | [place] | [phone] | | | | | [address] | | | | | | [phone] | | | +--------+--------+ + + + [...] Not on filedocumented as of this encounter Visit Diagnoses Not on filedocumented in this encounter"
--- OUTSIDE RECORDS SUMMARY | ~2019-02-11 | XMS | Encounter Summary ---
Demographics + + + | Address | [address] | | | [place] [address] | + + + | Home Phone | | + + + | Preferred Language | Unknown | + + + | Marital Status | Unknown | + + + | Nondenominational Affiliation | Unknown | + + + | Race | Unknown | + + + | Ethnic Group | Unknown | + + + Author + + + | Author | [facility] | | | and [place] | + + + | Organization | [facility] | | | and [place] [...] Team Providers + +------+ + | Care Capacity Management Specialist Name | Role | Phone | [...] MICHELLE KAUFMAN | | | | | [place], [place] | [place] [address] | | | | | [address] | [phone] | | | | | [phone] | | | +--------+ + + + [...] MV A Zack: 0.91 m/s MV Dec [place]: | | | 3.30 m/s2 MV DecT: 110.08 ms MV E Zack: 0.36 m/s MV E/A Ratio: | | | 0.39 MV PHT: 31.92 ms MVA By PHT: 6.89 cm2 Septal e': | | | 0.02 m/s Septal E/e': 17.87 Pre Sales Technical Engineer: DBS Authenticated | | | by: Aidan [facility] Report Date/Time: 01-27-2018 20:31:19 | | [...] | | cmLVPWd: 0.48 cmLVOT Area: 3.17 [id number] Diam: 2.01 cm%FS: 13.00 %EF(Teich): | | 27.65 %ESV(Teich): 100.79 mlLVIDs: 4.66 cmSV(Teich): 38.53 mlRVIDd: 2.57 | | cmLAESV(A-L): 31.09 mlLAESV Index (A-L): 19.31 ml/m2LAAs A2C: 11.42 [id number] A-L | | A2C: 27.79 mlLALs A2C: 3.98 cmLAAs A4C: 12.18 tm5ISKAD A-L A4C: 33.17 mlLALs | | A4C: 3.80 cmRAAs: 8.87 [id number] A-L: 20.88 mlRAESV MOD: 21.09 mlRALs: 3.19 | | cmTAPSE: 1.39 cmAV maxP.26 mmHgAV meanP.80 mmHgAV Vmax: 1.03 m/Damaris | | Vmean: 0.61 m/Damaris VTI: 18.51 cmAVA Vmax: 1.99 cm2AVA (VTI): 2.59 qz5EREN (Vmax): | | 0.00 cm2/m2AVAI (VTI): 0.00 cm2/m2LVOT maxP.68 mmHgLVOT meanP.91 | | mmHgLVSI Dopp: 29.78 ml/m2LVSV Dopp: 47.95 mlLVOT Vmax: 0.64 m/sLVOT Vmean: 0.44 | | m/sLVOT VTI: 15.11 cmMV A Zack: 0.91 m/sMV Dec [place]: 3.30 m/s2MV DecT: 110.08 | | msMV E Zack: 0.36 m/sMV E/A Ratio: 0.39MV PHT: 31.92 msMVA By PHT: 6.89 [id number] | | e': 0.02 m/sSeptal E/e': 17.87 Pre Sales Technical Engineer: DBSAuthenticated by: Aidan | | [facility] Date/Time: 01-27-2018 20:31:19 IMPRESSION: 1. The left [...] A Zack: 0.91 m/s | |MV Dec [place]: 3.30 m/s2 | |MV DecT: 110.08 ms | |MV E Zack: 0.36 m/s | |MV E/A Ratio: 0.39 | |MV PHT: 31.92 ms | |MVA By PHT: 6.89 cm2 | |Septal e': 0.02 m/s | |Septal E/e': 17.87 | | | |Pre Sales Technical Engineer: DBS | |Authenticated by: Aidan Becker | [...]
--- OUTSIDE RECORDS SUMMARY | ~2019-02-11 | XMS | Clinical Summary ---
Demographics + + + | Address | [address] | | | [place] [address] | + + + | Home Phone | | + + + | Preferred Language | Unknown | + + + | Marital Status | | + + + | Synagogue Affiliation | Unknown | + + + | Race | Unknown | + + + | Ethnic Group | Unknown | + + + Author + + + | Author | [facility] (Historical as of | | | 11-12-18) | + + + | Organization | [facility] (Historical as of | | | 11-12-18) [...] Team Providers + +------+ + | Care Literacy Coordinator Name | Role | Phone | [...] Vaccine: Influenza | | | | | (#1) | 9 | | | + + + + [...] | Heart | SCIENTIFIC | | | /[id number] | | Qty: 1 on 05/19/2015 by | | | [employer] | | | 322 | | Maxx Nayak MD | | | | | | | + +-------+-------+ +--------+--------+--------+ | Promus | Stent | N/A: | [place] | | | / | | Premier-05/19/2015Implanted: | | Heart | SCIENTIFIC | | | /[id number] | | Qty: 1 on 05/19/2015 by | | | [employer] | | | [phone] | | Maxx [...] +------+-------+ + | MEDICARE | MEDICA | [id number] | | | [address] | | | RE | | | | [place] [address] | | | IP-OP | | | | | + +--------+ +------+-------+ + | COMMERCIAL OTHER | COMMER | [id number] | | | | | | CIAL [...] [phone] | [place] | | | maneul | | | [phone] | [phone] | + +--------+ +--------+ + +
--- OUTSIDE RECORDS SUMMARY | ~2019-02-11 | XMS | Encounter Summary ---
Demographics + + + | Address | [address] | | | [place] [address] | + + + | Home Phone | | + + + | Preferred Language | Unknown | + + + | Marital Status | Unknown | + + + | Confucianism Affiliation | Unknown | + + + | Race | Unknown | + + + | Ethnic Group | Unknown | + + + Author + + + | Author | [facility] | | | and [place] | + + + | Organization | [facility] | | | and [place] | [...] Team Providers + +------+ + | Care Energy Assistant Name | Role | Phone | [...] Transaction, | | | | | [address] | Provider Unknown | | | | | [place] | | | | | | [phone] | (Fax) | | | | | [phone] | | | +--------+ + + + [...]
--- OUTSIDE RECORDS SUMMARY | ~2019-02-11 | XMS | Clinical Summary ---
Demographics + + + | Address | [address] | | | [place] [address] | + + + | Home Phone | | + + + | Preferred Language | Unknown | + + + | Marital Status | Unknown | + + + | Jewish Affiliation | Unknown | + + + | Race | Unknown | + + + | Ethnic Group | Unknown | + + + Author + + + | Author | [facility] | | | and [place] | + + + | Organization | [facility] | | | and [place] [...] Team Providers + +------+ + | Care Title One Reading Teacher Name | Role | Phone | + [...] | | + + + +---------+------+------+-------+ | aspirin (ASPIRIN | Take 81 mg by mouth | | 0 | 04/30 | | Activ | | LOW DOSE) 81 MG | daily. | | | 04/17 | | e | | tablet | | | | 16 | | | + + + +---------+------+------+-------+ | cyanocobalamin | Take 1,000 mcg by | | 0 | 02/2 | | Activ | | (VITAMIN B-12) 1000 | mouth daily. | | | 04/17 | | e | | MCG tablet | | | | 16 | | | + + + +---------+------+------+-------+ | famotidine | TAKE 1 TABLET BY | 180 | 1 | 08/27 | | Activ | | (PEPCID) 20 mg | MOUTH TWICE DAILY | tablet | | 07/16 | | e | | tablet | | | | 18 | | | + + + +---------+------+------+-------+ | levothyroxine | Take 75 mcg by mouth | | 0 | 11 | | Activ | | (SYNTHROID) 75 MCG | every morning | | | 220 | | e | | tablet | before breakfast. | | | 18 | | | + + + +---------+------+------+-------+ | mirtazapine | Take 1 tablet by | | 0 | / | | Activ | | (REMERON) 15 MG | mouth daily. | | | 8/20 | | e | | tablet | | | | 18 | | | + + + +---------+------+------+-------+ | simvastatin | Take 1 tablet by | 30 | 1 | 11 | | Activ | | (ZOCOR) 20 mg tablet | mouth nightly. | tablet | | 3/ | | e | | | | | | 19 | | | + + + +---------+------+------+-------+ | metoprolol | Take 1 tablet by | 180 | 3 | 11/0 | 01/27 | Expir | | tartrate (LOPRESSOR) | mouth 2 (two) times | tablet | | 6/ | 2/20 | ed | | 25 mg tablet | daily. | | | 17 | 19 | | + + + +---------+------+------+-------+ | simvastatin | Take 1 tablet by | 90 | 1 | 05/1 | 01/27 | Disco | | (ZOCOR) 20 mg tablet | mouth nightly. | tablet | | 6/20 | 3/20 | ntinu | | | | | | 19 | 19 | ed | | | | | | | | (Reor | | | | | | | | khang) | + + + +---------+------+------+-------+ Active Problems [...] hypertension | 05/19/2015 | + + + | Hyperlipidemia | 05/19/2015 | + + + | Hypothyroid | 05/19/2015 | + + + Encounters +--------+ + + + + | Date | Type | Specialty | Care Team | Description | +--------+ + + + + | 02/08/ | Refill | Cardiology | Brianna Stewart | Medication Refill | | 2018 | | | EKATERINA Ko | | +--------+ + + + + | 11/11/ | Orders Only | Cardiology | Brianna Stewart | Mixed | | 2018 | | | EKATERINA Ko | hyperlipidemia; | | | | | | 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 | + + Last Filed Vital Signs + + + + + | Vital Sign | Reading | Time Taken | Comments | + + + + + | Blood Pressure | 126/62 | 02/07/2018 10:13 AM | | | | | PST | | + + + + + | Pulse | 64 | 02/07/2018 10:13 AM | | | [...] 56.5 kg (124 lb 9.6 | 02/07/2018 10:13 AM | | | | oz) | PST | | + + + + + | Height | 160 cm (5' 3") | 02/07/2018 10:13 AM | | | | | PST | | + + + + + | Body Mass Index | 22.07 | 02/07/2018 10:13 AM | | | [...] | 8 | | | | of 2 - PCV13) | | | | + + + + + | Adult Annual | | | | | Wellness Visit | 9 | | | + + + + + | Vaccine: Influenza | | | | | (#1) | 9 | | | + + + + + Results Not on filefrom Last 3 Months Insurance + +--------+ +--------+ +---------+--------+ | Payer | Benefi | Subscriber | Effect | Phone | Address | Type | | | t Plan | ID | casimiro | | | | | | / | | Dates | | | | | | Group | | | | | | + +--------+ +--------+ +---------+--------+ | MEDICARE | MEDICA | [id number] | 09/26/18 | [phone] | | Medica | | | RE | | 98-Pre | 5 | | re | | | PART A | | sent | | | | | | AND B | | | | | | + +--------+ +--------+ +---------+--------+ | [employer] | AMERIC | [id number] | | [phone] | Indemn | [...] al/Fam | | 1931 | [phone] | [place] | | | manuel | | | 4 (Home) | [id number] | + +--------+ +--------+ + +
--- OUTSIDE RECORDS SUMMARY | ~2019-02-11 | XMS | Encounter Summary ---
Demographics + + + | Address | [address] | | | [place] [address] | + + + | Home Phone | | + + + | Preferred Language | Unknown | + + + | Marital Status | Unknown | + + + | Denominational Affiliation | Unknown | + + + | Race | Unknown | + + + | Ethnic Group | Unknown | + + + Author + + + | Author | [facility] | | | and [place] | + + + | Organization | [facility] | | | and [place] [...] Team Providers + +------+ + | Care Mechanical Design Technician Name | Role | Phone | [...] + + | 02/08/ | Refill | [facility] | Brianna Stewart | Medication Refill | | 2019 | | CARDIOLOGY [place] | [address] | | | | | [address] | [address] | | | | | [address] | [place] [address] | | | | | [place] | [phone] | | | | | [address] | | | | | | [phone] | | | +--------+--------+ + + + [...]
--- OUTSIDE RECORDS SUMMARY | ~2019-02-11 | XMS | Encounter Summary ---
Demographics + + + | Address | [address] | | | [place] [address] | + + + | Home Phone | | + + + | Preferred Language | Unknown | + + + | Marital Status | Unknown | + + + | Rastafarian Affiliation | Unknown | + + + | Race | Unknown | + + + | Ethnic Group | Unknown | + + + Author + + + | Author | [facility] | | | and [place] | + + + | Organization | [facility] | | | and [...] Team Providers + +------+ + | Care Vehicle Technician Name | Role | Phone | + +------+ + | Luanne Love | PCP | | | PA | | | + +------+ + Encounter Details +--------+ + + + + | Date | Type | Department | Care Team | Description | +--------+ + + + + | 09/09/ | Orders Only | [facility] | Aidan Becker, | | | 2018 | | CARDIOLOGY [place] | [address] | | | | | [address] | [facility] [place] | | | | | [place] | [address] | | | | | [address] | | | | | | [phone] | | | +--------+ + + + [...]
--- OUTSIDE RECORDS SUMMARY | ~2019-02-11 | XMS | Encounter Summary ---
Demographics + + + | Address | [address] | | | [place] [address] | + + + | Home Phone | | + + + | Preferred Language | Unknown | + + + | Marital Status | Unknown | + + + | Bahai Affiliation | Unknown | + + + | Race | Unknown | + + + | Ethnic Group | Unknown | + + + Author + + + | Author | [facility] | | | and [place] | + + + | Organization | [facility] | | | and [place] [...] Team Providers + +------+ + | Care Ukrainian Folk Arts Instructor Name | Role | Phone | + +------+ + | Luanne Love | PCP | | | PA | | | + +------+ + Encounter Details +--------+ + + + + | Date | Type | Department | Care Team | Description | +--------+ + + + + | 11/11/ | Orders Only | [facility] | Brianna Stewart | 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[place] | [address] | hyperlipidemia; | | | | [address] | [address] | Atherosclerotic | | | | [address] | [place] [address] | heart disease of | | | | [place], [place] | [phone] | [place] coronary | | | | [address] | | artery with angina | | | | [phone] | | pectoris (HCC); Old | | [...] as of this encounter Plan of Treatment + +------+--------+ + + | Name | [...] of | | | | | | [place] coronary | | | | | | [...] + + | 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
--- OUTSIDE RECORDS SUMMARY | ~2019-02-11 | XMS | Encounter Summary ---
Demographics + + + | Address | [address] | | | [place] [address] | + + + | Home Phone | | + + + | Preferred Language | Unknown | + + + | Marital Status | Unknown | + + + | Jewish Affiliation | Unknown | + + + | Race | Unknown | + + + | Ethnic Group | Unknown | + + + Author + + + | Author | [facility] | | | and [place] | + + + | Organization | [facility] | | | and [place] [...] Team Providers + +------+ + | Care House Painter Name | Role | Phone | + [...] [place] | | | | | | [address] | (Fax) | | | | | [phone] | | | +--------+ + + + [...]
--- OUTSIDE RECORDS SUMMARY | ~2019-02-11 | XMS | Encounter Summary ---
Demographics + + + | Address | [address] | | | [place] [address] | + + + | Home Phone [...] | Organization | [facility] | | | and [place] | [...] Team Providers + +------+ + | Care Patient Navigator Name | Role | Phone | + +------+ + | Luanne Love | PCP | | | [place] | | | + +------+ + Encounter Details +--------+ + + + + | Date | Type | Department | Care Team | Description | +--------+ + + + + | 05/21/ | Orders Only | [facility] | Maxx Nayak MD | | | 2016 | | CARDIOLOGY [place] | [address] | | | | | [address] | [place] [address] | | | | | [place], [place] | [phone] | | | | | [address] | | | | | | [phone] | | | +--------+ + + + [...]
--- OUTSIDE RECORDS SUMMARY | ~2019-02-11 | XMS | Encounter Summary ---
Demographics + + + | Address | [address] | | | [place] [address] | + + + | Home Phone | | + + + | Preferred Language | Unknown | + + + | Marital Status | Unknown | + + + | Sabianist Affiliation | Unknown | + + + | Race | Unknown | + + + | Ethnic Group | Unknown | + + + Author + + + | Author | [facility] | | | and [place] | + + + | Organization | [facility] | | | and [place] | + + + | Address | Unknown | + + + | Phone | Unavailable | + + + Support + + +---------+ + | Name | Relationship | Address | Phone | + + +---------+ + | Ejffry Juarez | ECON | Unknown | | + + +---------+ + Care Team Providers + +------+ + | Care Nitroglycerin Supervisor Name | Role | Phone | + +------+ + | Luanne Love | PCP | | | [place] | | | + +------+ + Encounter Details +--------+ + + + + | Date | Type | Department | Care Team | Description | +--------+ + + + + | 08/11/ | Orders Only | [facility] | Brianna Stewart | | | 2019 | | CARDIOLOGY [place] | [address] | | | | | [address] | [address] | | | | | [address] | [place] [address] | | | | | [place], [place] | [phone] | | | | | [address] | | | | | | [phone] | | | +--------+ + + + [...]
--- OUTSIDE RECORDS SUMMARY | ~2019-02-11 | XMS | Clinical Summary ---
Demographics + + + | Address | [address] | | | [place] [address] | + + + | Home Phone | | + + + | Preferred Language | Unknown | + + + | Marital Status | | + + + | Latter-Day Affiliation | Unknown | + + + | Race | Unknown | + + + | Ethnic Group | Unknown | + + + Author + + + | Author | [facility] (Historical as of | | | 11-12-18) | + + + | Organization | [facility] (Historical as of | | | 11-12-18) [...] Team Providers + +------+ + | Care Babbitt Spinner Name | Role | Phone | + [...] | Heart | SCIENTIFIC | | | /[id number] | | Qty: 1 on 05/19/2015 by | | | [employer] | | | 322 | | Maxx Nayak MD | | | | | | | + +-------+-------+ +--------+--------+--------+ | Promus | Stent | N/A: | [place] | | | / | | Premier-05/19/2015Implanted: | | Heart | SCIENTIFIC | | | /[id number] | | Qty: 1 on 05/19/2015 by | | | [employer] | | | 944 | | Maxx [...] +------+-------+ + | MEDICARE | MEDICA | [id number] | | | [address] | | | RE | | | | [place] [id number] | | | IP-OP | | | | | + +--------+ +------+-------+ + | COMMERCIAL OTHER | COMMER | [id number] | | | | | | CIAL [...] | manuel | | | [phone] | [phone] | + +--------+ +--------+ + +
--- OUTSIDE RECORDS SUMMARY | ~2019-02-11 | XMS | Encounter Summary ---
Demographics + + + | Address | [address] | | | [place] [address] | + + + | Home Phone | | + + + | Preferred Language | Unknown | + + + | Marital Status | Unknown | + + + | Orthodoxy Affiliation | Unknown | + + + | Race | Unknown | + + + | Ethnic Group | Unknown | + + + Author + + + | Author | [facility] | | | and [place] | + + + | Organization | [facility] | | | and [...] Team Providers + +------+ + | Care Lifts And Cranes Inspector Name | Role | Phone | + +------+ + | Luanne Love | PCP | | | PA | | | + +------+ + Encounter Details +--------+ + + + + | Date | Type | Department | Care Team | Description | +--------+ + + + + | 11/11/ | Orders Only | [facility] | Brianna Stewart | 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[place] | [address] | hyperlipidemia; | | | | [address] | [address] | Atherosclerotic | | | | [address] | [place] [address] | heart disease of | | | | [place], [place] | [phone] | [place] coronary | | | | [address] | | artery with angina | | | | [phone] | | pectoris (HCC); Old | | [...] of | | | | | | [place] coronary | | | | | | [...] + + | 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
--- OUTSIDE RECORDS SUMMARY | ~2019-02-11 | XMS | Encounter Summary ---
Demographics + + + | Address | [address] | | | [place] [address] | + + + | Home Phone | | + + + | Preferred Language | Unknown | + + + | Marital Status | Unknown | + + + | Buddhist Affiliation | Unknown | + + + | Race | Unknown | + + + | Ethnic Group | Unknown | + + + Author + + + | Author | [facility] | | | and [place] | + + + | Organization | [facility] | | | and [...] Team Providers + +------+ + | Care Mold Sander Name | Role | Phone | + +------+ + | Luanne Love | PCP | | | PA | | | + +------+ + Encounter Details +--------+ + + + + | Date | Type | Department | Care Team | Description | +--------+ + + + + | 02/01/ | Orders Only | [facility] | Brianna Stewart | | | 2016 | | CARDIOLOGY [place] | [address] | | | | | [address] | [address] | | | | | [address] | [place] [address] | | | | | [place], [place] | [phone] | | | | | [address] | | | | | | [phone] | | | +--------+ + + + [...]
--- OUTSIDE RECORDS SUMMARY | ~2019-02-11 | XMS | Encounter Summary ---
Demographics + + + | Address | [address] | | | [place] [address] | + + + | Home Phone | | + + + | Preferred Language | Unknown | + + + | Marital Status | Unknown | + + + | Druze Affiliation | Unknown | + + + | Race | Unknown | + + + | Ethnic Group | Unknown | + + + Author + + + | Author | [facility] | | | and [place] | + + + | Organization | [facility] | [...] Team Providers + +------+ + | Care Centrifugal Wax Molder Name | Role | Phone | + +------+ + | Luanne Love | PCP | | | PA | | | + +------+ + Encounter Details +--------+ + + + + | Date | Type | Department | Care Team | Description | +--------+ + + + + | 09/09/ | Orders Only | [facility] | Aidan Becker, | | | 2018 | | CARDIOLOGY [place] | [address] | | | | | [address] | [place] [facility] | | | | | [place] | [address] | | | | | [address] | | | | | | [phone] | | | +--------+ + + + [...]
--- OUTSIDE RECORDS SUMMARY | ~2019-02-11 | XMS | Encounter Summary ---
Demographics + + + | Address | [address] | | | [place] [address] | + + + | Home Phone | | + + + | Preferred Language | Unknown | + + + | Marital Status | Unknown | + + + | Lutheran Affiliation | Unknown | + + + | Race | Unknown | + + + | Ethnic Group | Unknown | + + + Author + + + | Author | [facility] | | | and [place] | + + + | Organization | [facility] | | | and [place] [...] Team Providers + +------+ + | Care Cigar Making Supervisor Name | Role | Phone | + +------+ + | Luanne Love | PCP | | | PA | | | + +------+ + Encounter Details +--------+ + + + + | Date | Type | Department | Care Team | Description | +--------+ + + + + | 08/11/ | Orders Only | [facility] | Brianna Stewart | | | 2019 | | CARDIOLOGY [place] | [address] | | | | | [address] | [address] | | | | | [address] | [place] [address] | | | | | [place], [place] | [phone] | | | | | [address] | | | | | | [phone] | | | +--------+ + + + [...]
--- OUTSIDE RECORDS SUMMARY | ~2019-02-11 | XMS | Encounter Summary ---
Demographics + + + | Address | [address] | | | [place] [address] | + + + | Home Phone | | + + + | Preferred Language | Unknown | + + + | Marital Status | Unknown | + + + | Hindu Affiliation | Unknown | + + + | Race | Unknown | + + + | Ethnic Group | Unknown | + + + Author + + + | Author | [facility] | | | and [place] | + + + | Organization | [facility] | | | and [place] [...] Team Providers + +------+ + | Care Prospecting Driller Helper Name | Role | Phone | + +------+ + | Luanne Love | PCP | | | PA | | | + +------+ + Encounter Details +--------+ + + + + | Date | Type | Department | Care Team | Description | +--------+ + + + + | 02/01/ | Orders Only | [facility] | Brianna Stewart | | | 2016 | | CARDIOLOGY [place] | [address] | | | | | [address] | [address] | | | | | [address] | [place] [address] | | | | | [place], [place] | [phone] | | | | | [address] | | | | | | [phone] | | | +--------+ + + + [...]
--- OUTSIDE RECORDS SUMMARY | ~2019-02-11 | XMS | Encounter Summary ---
Demographics + + + | Address | [address] | | | [place] [address] | + + + | Home Phone | | + + + | Preferred Language | Unknown | + + + | Marital Status | Unknown | + + + | Amish Affiliation | Unknown | + + + | Race | Unknown | + + + | Ethnic Group | Unknown | + + + Author + + + | Author | [facility] | | | and [place]ana | + + + | Organization | [facility] | | [...] Team Providers + +------+ + | Care Rf Manager Name | Role | Phone | + +------+ + PCP | Unavailable | + +------+ + Encounter Details +--------+ + + + + | Date | Type | Department | Care Team | Description | +--------+ + + + + | 05/19/ | Hospital | [facility] | Maxx Barker MD | NSTEMI (non-ST | | 2016 - | Encounter | [facility] | [address] | elevated myocardial | | | | CARE FLOOR [address] | [place] [address] | infarction) ([facility]) | | 05/21/ | | JESUS ALBERTO MORA | [phone] | | | 2016 | | [place], [place] | | | | | | [address] | | | | | | [phone] | | | +--------+ + + + [...] 1413 Date of Service: 05/21/15916 Status: Signed Tin Plater: Maxx Barker MD (Physician) [facility] Service: Cardiology Discharge Summary Date of Admission: [...] with Dr. Collins as she lives in [place]. Referral to cardiac rehab as an outpatient. 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 You may get the following medications from [...] | daily. | | | 16 | | | tablet | | | | | | + + + +---------+ + + | cyanocobalamin | Take 1,000 mcg by | | 0 | 05/19/19 | | | (VITAMIN B-12) 1000 | mouth daily. | | | 16 | | | MCG tablet | | | [...] Case Management by ANDREW Multani at 05/21/15 150 Author: ANDREW Multani Service: (none) Author Type: Alignment Technician Filed: 05/21/15 1509 Date of Service: 05/21/151507 Status: Signed Tin Plater: ANDREW Multani (Alignment Technician) 05/21/15 1500 Discharge Planning Evaluation Admitting Diagnosis NSTEMI Anticipated Disposition Facility Type Home ELECTRICAL TESTER met with Leonie NORRIS Nurse, states no discharge needs or concerns at this time. DCP: Home MAKENZIE WILLAMS, [place] St[place] Machine Operator [phone] onver joseph Transaction, Provider Unknown - 05/21/2015 10:57 AM PST Nurse Progress Note by Leonie Tapia RN at 05/21/15 760 Author: Leonie Tapia RN Service: (none) Author Type: Registered Nurse Filed: 05/21/15 1058 Date of Service: 05/21/151056 Status: Signed Tin Plater: Leonie Tapia RN (Registered Nurse) D/c instructions completed by JULIAN Steinberg. Pt and family stated understanding to d/c paperwo rk, follow up and new prescriptions. onver joseph Transaction, Provider Unknown - 05/20/2015 1:47 PM PST Case Management by Cierra Caban RN at 05/20/15 908 Author: Cierra Caban RN Service: (none) Author Type: Registered Nurse Filed: 05/20/157 Date of Service: 05/20/151346 Status: Signed Tin Plater: Cierra Caban RN (Registered Nurse) 05/20/156 Discharge Planning Evaluation Admitting Diagnosis NSTEMI Readmission [...] female who lives with spouse in [facility]. She is independent in all adl's and [...] 05/19/151811 Date of Service: 05/19/151809 Status: Signed Tin Plater: Chapo Coles RN (Registered Nurse) VSS, pt more comfortable. No further bleeding from R radial site. Dinner ordered. Pt still c/o low-grade CP, rating 4/10. Will Continue to monitor. Jesus kate, Damaris Levine RPH - 05/19/2015 5:22 PM PSTFormatting of this note might be different from t he original. Progress Notes by Damaris Ritter RPH at 05/19/151721 Author: Damaris Ritter RPH Service: (none) Author Type: Pharmacist Filed: 05/19/151721 Date of Service: 05/19/151721 Status: Signed Tin Plater: Damaris Ritter RPH (Pharmacist) Clinical Pharmacy Note - Renal Dose Adjustment Damir Alejandro 84 y.o. female Ht Readings from Last 1 Encounters: 05/19/15 1.626 m (5' 4") Wt Readings from Last 1 Encounters: 05/19/15 61.78 kg (136 lb 3.2 oz) CREATININE Date Value Ref Range Status 05/19/2015 1.5* 0.50 - 1.00 mg/dL Final Comment: Testing performed at [facility];[address] [place] [address];[place] [address] CREATININE: 1.5 mg/dL ABNORMAL (05/19/15 1205) Estimated [...] 05/19/151707 Date of Service: 05/19/151703 Status: Signed Tin Plater: Chapo Coles RN (Registered Nurse) Pt arrived hypotensive from microbiology lab assistant. Bolus of NS started, pt placed in [...] nted in this encounter Plan of Treatment Not on [...] EXTERNAL | | | | performed at [facility];[address] | | LAB | | | | [address];[place], [place] | | | | | | [address] | | | | + + + [...] | | | | | performed at [facility] | | | | | | [address];[place] | | | | | | [address] | | | | + + + [...] EXTERNAL | | | | performed at [facility];[address] | | LAB | | | [address];[place], [place] | | | | | | [address] | | | | + + + [...] | | LAB | | | | [facility];[address] [place] [address] | | | | | | [facility];[place] [address] | | | | + + + [...] | | | | | performed at [facility];[address] | | | | | | [address];[place], [place] | | | | | | [address] | | | | + + + [...] EXTERNAL | | | | performed at [facility];[address] | | LAB | | | | [address];[place], [place] | | | | | | [address] | | | | + + + [...] 0.45 m/s TV | | | Dec [place]: 2.68 m/s2 TV Dec Time: 257.33 ms TV E Zack: 0.69 | | | m/s TV E/A Ratio: 1.50 Interactive Multimedia Designer: Authenticated by: Maxx | | | Malini DONOHUE Report Date/Time: 05-21-2015 09:31:01 | | + + + + + | Procedure Note | + + | Rogers Haddad Conversion - 11/10/2018 5:37 PM PDT Patient Name: Aissatou ALEJANDRO of [...] mlLAESV Index (A-L): 26.86 ml/m2LAAs A2C: 14.91 no2EIALA A-L | | A2C: 42.94 mlLALs A2C: 4.39 cmLAAs A4C: 13.05 [id number] A-L A4C: 31.55 mlLALs | | A4C: [...] Vmax: 2.19 cm2AVA (VTI): | | 2.30 [id number] Dopp: 4.35 l/nbpz3EHHM Dopp: 6.09 l/minHR: 71.65 BPMLVOT maxPG: | [...] 0.82 m/sTV A Zack: 0.45 m/sTV Dec [place]: 2.68 | | m/s2TV Dec Time: 257.33 msTV E Zack: 0.69 m/sTV E/A Ratio: 1.50 Interactive Multimedia Designer: | | ASAuthenticated by: Maxx Barker MDReport Date/Time: 05-21-2015 09:31:01 IMPRESSION: 1. [...] A Zack: 0.45 m/s | |TV Dec [place]: 2.68 m/s2 | |TV Dec Time: 257.33 ms | |TV E Zack: 0.69 m/s | |TV E/A Ratio: 1.50 | | | |Interactive Multimedia Designer: | |Authenticated by: Maxx Barker MD | [...] | | | | | performed at [facility];[address] | | | | | | [facility];[place], [place] | | | | | | [address] | | | | + + + [...] EXTERNAL | | | | performed at [facility];[address] | K/uL | LAB | | | | [address];[place] | | | | | | [address] | | | | + + + + + + | RED CELL | 3.27 (L)Comment: Testing | 3.70 - 5.10 | EXTERNAL | | | COUNT | performed at [facility];[address] | M/uL | LAB | | | | [address];[place] | | | | | | [address] | | | | + + + + + + | Hgb | 8.7 (L)Comment: Testing | 11.3 - 15.5 | EXTERNAL | | | | performed at [facility];[address] | g/dL | LAB | | | | [address];[place] | | | | | | [address] | | | | + + + + + + | Hematocrit, | 27.8 (L)Comment: Testing | 34.0 - 46.0 % | EXTERNAL | | | POC | performed at [facility];[address] | | LAB | | | | [address];[place] | | | | | | [address] | | | | + + + + + + | MCV | 84.9Comment: Testing | 80.0 - 100.0 fl | EXTERNAL | | | | performed at [facility];[address] | | LAB | | | | [address];[place] | | | | | | [address] | | | | + + + + + + | MCH | 26.7 (L)Comment: Testing | 27.0 - 34.0 pg | EXTERNAL | | | | performed at [facility];[address] | | LAB | | | | [address];[place] | | | | | | [address] | | | | + + + + + + | MCHC | 31.5 (L)Comment: Testing | 32.0 - 35.5 | EXTERNAL | | | | performed at [facility];[address] | g/dL | LAB | | | | [address];[place] | | | | | | [address] | | | | + + + + + + | RDW-CV | 46.8Comment: Testing | 37 - 53 fl | EXTERNAL | | | | performed at [facility];[address] | | LAB | | | | [address];[place] | | | | | | [address] | | | | + + + + + + | Platelet | 207Comment: Testing | 150 - 400 K/uL | EXTERNAL | | | Count | performed at [facility];[address] | | LAB | | | Plasma | [address];[place] | | | | | | [address] | | | | + + + + + + | MPV | 8.1Comment: Testing | fl | EXTERNAL | | | | performed at [facility];[address] | | LAB | | | | [address];[place] | | | | | | [address] | | | | + + + + + + | Differentia | AUTOMATEDComment: | | EXTERNAL | | | l Type | Testing performed at | | LAB | | | | [facility];[address];[place] [address] | | | | + + + + + + | % Segmented | 73.07Comment: Testing | % | EXTERNAL | | | | performed at [facility];[address] | | LAB | | | Neutrophils | [address];[place] | | | | | | [address] | | | | + + + + + + | % | 15.96Comment: Testing | % | EXTERNAL | | | Lymphocytes | performed at [facility];[address] | | LAB | | | | [address];[place] | | | | | | [address] | | | | + + + + + + | % Monocytes | 9.56Comment: Testing | % | EXTERNAL | | | | performed at [facility];[address] | | LAB | | | | [address];[place] | | | | | | [address] | | | | + + + + + + | % | 1.00Comment: Testing | % | EXTERNAL | | | Eosinophils | performed at [facility];[address] | | LAB | | | | [address];[place] | | | | | | [address] | | | | + + + + + + | % Basophils | 0.41Comment: Testing | % | EXTERNAL | | | | performed at [facility];[address] | | LAB | | | | [address];[place] | | | | | | [address] | | | | + + + + + + | Absolute | 5.60Comment: Testing | 1.90 - 7.40 | EXTERNAL | | | Segmented | performed at [facility];[address] | K/uL | LAB | | | Neutrophils | [address];[place] | | | | | | [address] | | | | + + + + + + | Absolute | 1.22Comment: Testing | 1.00 - 3.90 | EXTERNAL | | | Lymphocytes | performed at [facility];[address] | K/uL | LAB | | | | [address];[place] | | | | | | [address] | | | | + + + + + + | Absolute | 0.73Comment: Testing | 0.00 - 0.80 | EXTERNAL | | | Monocytes | performed at [facility];[address] | K/uL | LAB | | | | [address];[place] | | | | | | [address] | | | | + + + + + + | Absolute | 0.08Comment: Testing | 0.00 - 0.50 | EXTERNAL | | | Eosinophils | performed at [facility];[address] | K/uL | LAB | | | | [address];[place] | | | | | | [address] | | | | + + + + + + | Absolute | 0.03Comment: Testing | 0.00 - 0.10 | EXTERNAL | | | Basophils | performed at [facility];[address] | K/uL | LAB | | | | [address];[place], [place] | | | | | | [address] | | | | + + + + + + + + | Specimen | + + | | + + + +---------+ + + | Performing | Address | City/State/Zipcode | Phone Number | | Organization | | | | + +---------+ + + | EXTERNAL LAB | | | | + +---------+ + + Didierime INR (05/20/2015 5:50 AM PST) + + [...] | | | 4RP ALEECE M AT 0620 | | | | | | LJTesting performed at | | | | | | [facility];[address] [place] [address] | | | | | | [facility];[place], [place] | | | | | | [id number] ON 05/20 | | | | | [...] EXTERNAL | | | | performed at [facility] | | LAB | | | | [address];[place] | | | | | | [address] | | | | + + + [...] EXTERNAL | | | | performed at [facility];[address] | | LAB | | | | [address];[place], [place] | | | | | | [address] | | | | + + + [...] [address], | | | | | | [place] [address] | | | | + + + + + + | Triglycerid | 216 (H)Comment: Testing | mg/dL | EXTERNAL | | | es | performed at [facility], [address] | | LAB | | | | [address], | | | | | | [place] [address] | | | | + + + + + + | HDL | 37 (L)Comment: Testing | mg/dL | EXTERNAL | | | | performed at [facility], [address] | | LAB | | | | [address], | | | | | | [place] [address] | | | | + + + + + + | LDL | 59Comment: Testing | mg/dL | EXTERNAL | | | Cholesterol | performed at [facility], [address] | | LAB | | | , | [facility], | | | | | Calculated, | [place] [address] | | | | | External | | | | | + + [...] EXTERNAL | | | | performed at [facility];[address] | mmol/L | LAB | | | | [address];[place] | | | | | | [address] | | | | + + + + + + | K | 4.3Comment: Testing | 3.5 - 4.9 | EXTERNAL | | | | performed at [facility];[address] | mmol/L | LAB | | | | [address];[place] | | | | | | [address] | | | | + + + + + + | Cl | 113 (H)Comment: Testing | 99 - 109 mmol/L | EXTERNAL | | | | performed at [facility];[address] | | LAB | | | | [address];[place] | | | | | | [address] | | | | + + + + + + | CO2 | 24Comment: Testing | 23 - 32 mmol/L | EXTERNAL | | | | performed at [facility];[address] | | LAB | | | | [address];[place] | | | | | | [address] | | | | + + + + + + | Anion Gap | 10Comment: Testing | 5 - 20 mmol/L | EXTERNAL | | | | performed at [facility];[address] | | LAB | | | | [address];[place] | | | | | | [address] | | | | + + + + + + | Glucose, | 85Comment: Testing | 65 - 99 mg/dL | EXTERNAL | | | Fasting | performed at [facility];[address] | | LAB | | | | [address];[place] | | | | | | [address] | | | | + + + + + + | BUN | 19Comment: Testing | 8 - 25 mg/dL | EXTERNAL | | | | performed at [facility];[address] | | LAB | | | | [address];[place] | | | | | | [address] | | | | + + + + + + | Creatinine | 1.2 (H)Comment: Testing | 0.50 - 1.00 | EXTERNAL | | | | performed at [facility];[address] | mg/dL | LAB | | | | [address];[place] | | | | | | [address] | | | | + + + + + + | BUN/Creatin | 16Comment: Testing | | EXTERNAL | | | ine Ratio | performed at [facility];[address] | | LAB | | | | [address];[place] | | | | | | [address] | | | | + + + + + + | Calcium | 7.1 (L)Comment: Testing | 8.5 - 10.5 | EXTERNAL | | | | performed at [facility];888 | mg/dL | LAB | | | | [address];[place] | | | | | | [address] | | | | + + + [...] | | | | | | at [facility];[address] | [address];[place] [address] | | | | + + + [...] | | LAB | | | | [place];[address];[place] [address] | | | | + + + [...] + + | Troponin I, | 160 (HH)Comment: 0.00 | 0.00 - 0.10 | EXTERNAL [...] | | | | | BACK BY:MARK Lackey/YayaP ON | | | | | | [id number] AT 0051, | | | | | | VAPTesting performed at | | | | | | [facility];[address] [place] [address] | | | | | | [facility];[place] [address] | | | | + + + [...] EXTERNAL | | | | performed at [facility];[address] | | LAB | | | | [address];[place], [place] | | | | | | [address] | | | | + + + [...] [address];[place] [address] | | | | + + + [...] | | | | | performed at [facility];[address] | | | | | | [facility];[place], [place] | | | | | | [address] | | | | + + + [...] EXTERNAL | | | | performed at [facility];[address] | | LAB | | | | [address];[place], [place] | | | | | | [address] | | | | + + + [...] canalized with | | | 6-Citizen Of [place] cylinder sheath. 2.5 mg verapamil, 200 mcg nitroglycerin, | | | 5000 international units of heparin was given through the sheath. | | | Over 260 exchange wire, 5-Citizen [place] FL4 diagnostic catheter advanced to | | | the ascending aorta to selectively engage the left main. Contrast was | | | injected. Selective angiogram for the left main, LAD, left | | | circumflex artery performed in different views. Over the guidewire, | | | it was exchanged for a 5-Citizen [place] FR-4 diagnostic catheter addressed to | | [...] | | for RC-4 SC 6-Citizen [place] guide that selectively engaged the RCA. A [...] | | | HISTORY | | Mrs. lAejandro is an 84-year-old lady with history of [...] Right radial artery canalized with 6-Citizen [place] cylinder | | sheath. 2.5 mg verapamil, 200 mcg nitroglycerin, 5000 international units | | of heparin was given through the sheath. Over 260 exchange wire, 5-Citizen [place] | | FL4 diagnostic catheter advanced to the ascending aorta to selectively | | engage the left main. Contrast was injected. Selective angiogram for the | | left main, LAD, left circumflex artery performed in different views. Over | | the guidewire, it was exchanged for a 5-Citizen [place] FR-4 diagnostic catheter | | addressed to [...] was exchanged for RC-4 SC 6-Citizen [place] guide | | that selectively engaged the [...] canalized with | | | 6-Citizen [place] cylinder sheath. 2.5 mg verapamil, 200 mcg nitroglycerin, | | | 5000 international units of heparin was given through the sheath. | | | Over 260 exchange wire, 5-Citizen [place] FL4 diagnostic catheter advanced to | | | the ascending aorta to selectively engage the left main. Contrast was | | | injected. Selective angiogram for the left main, LAD, left | | | circumflex artery performed in different views. Over the guidewire, | | | it was exchanged for a 5-Citizen [place] FR-4 diagnostic catheter addressed to | | [...] | | for RC-4 SC 6-Citizen [place] guide that selectively engaged the RCA. A [...] Right radial artery canalized with 6-Citizen [place] cylinder | | sheath. 2.5 mg verapamil, 200 mcg nitroglycerin, 5000 international units | | of heparin was given through the sheath. Over 260 exchange wire, 5-Citizen [place] | | FL4 diagnostic catheter advanced to the ascending aorta to selectively | | engage the left main. Contrast was injected. Selective angiogram for the | | left main, LAD, left circumflex artery performed in different views. Over | | the guidewire, it was exchanged for a 5-Citizen [place] FR-4 diagnostic catheter | | addressed to [...] was exchanged for RC-4 SC 6-Citizen [place] guide | | that selectively engaged the [...] | | | Clotting | performed at [facility];[address] | seconds | LAB | | | time, POC | [address];[place] | | | | | | [address] | | | | + + + [...] | | | Clotting | performed at [facility];[address] | seconds | LAB | | | time, POC | [address];[place], [place] | | | | | | [address] | | | | + + + [...] | Procedure Note | + + | Boo Rogers Terell - 11/10/2018 5:37 PM PDT [id number]XR CHEST | | 1 VIEW05/19/2015 1:13 [...] | | | | | performed at [facility];[address] | | | | | | [address];[place], [place] | | | | | | [address] | | | | + + + [...] | | | | | performed at [facility];[address] | | | | | | [facility];[place], [place] | | | | | | [address] | | | | + + + [...] EXTERNAL | | | | performed at [facility];[address] | mmol/L | LAB | | | | [address];[place] | | | | | | [address] | | | | + + + + + + | K | 4.4Comment: Testing | 3.5 - 4.9 | EXTERNAL | | | | performed at [facility];[address] | mmol/L | LAB | | | | [address];[place] | | | | | | [address] | | | | + + + + + + | Cl | 105Comment: Testing | 99 - 109 mmol/L | EXTERNAL | | | | performed at [facility];[address] | | LAB | | | | [address];[place] | | | | | | [address] | | | | + + + + + + | CO2 | 26Comment: Testing | 23 - 32 mmol/L | EXTERNAL | | | | performed at [facility];[address] | | LAB | | | | [address];[place] | | | | | | [address] | | | | + + + + + + | Anion Gap | 12Comment: Testing | 5 - 20 mmol/L | EXTERNAL | | | | performed at [facility];[address] | | LAB | | | | [address];[place] | | | | | | [address] | | | | + + + + + + | Glucose, | 95Comment: Testing | 65 - 99 mg/dL | EXTERNAL | | | Fasting | performed at [facility];[address] | | LAB | | | | [address];[place] | | | | | | [address] | | | | + + + + + + | BUN | 24Comment: Testing | 8 - 25 mg/dL | EXTERNAL | | | | performed at [facility];[address] | | LAB | | | | [address];[place] | | | | | | [address] | | | | + + + + + + | Creatinine | 1.5 (H)Comment: Testing | 0.50 - 1.00 | EXTERNAL | | | | performed at [facility];888 | mg/dL | LAB | | | | [address];[place] | | | | | | [address] | | | | + + + + + + | BUN/Creatin | 16Comment: Testing | | EXTERNAL | | | ine Ratio | performed at [facility];[address] | | LAB | | | | [address];[place] | | | | | | [address] | | | | + + + + + + | Calcium | 8.2 (L)Comment: Testing | 8.5 - 10.5 | EXTERNAL | | | | performed at [facility];[address] | mg/dL | LAB | | | | [address];[place], [place] | | | | | | [address] | | | | + + + [...] | | | | | | at [facility];[address];[place] [address] | | | | + + + [...]
--- OUTSIDE RECORDS SUMMARY | ~2019-02-11 | XMS | Encounter Summary ---
Demographics + + + | Address | [address] | | | [place] [address] | + + + | Home Phone | | + + + | Preferred Language | Unknown | + + + | Marital Status | Unknown | + + + | Jehovah'S Witness Affiliation | Unknown | + + + | Race | Unknown | + + + | Ethnic Group | Unknown | + + + Author + + + | Author | [facility] | | | and [place] | + + + | Organization | [facility] | | | and [place] | [...] Team Providers + +------+ + | Care Member Service Specialist Name | Role | Phone | + +------+ + | Luanne Love | PCP | | | PA | | | + +------+ + Encounter Details +--------+ + + + + | Date | Type | Department | Care Team | Description | +--------+ + + + + | 07/06/ | Orders Only | [facility] | Brianna Stewart | | | 2017 | | CARDIOLOGY [place] | [address] | | | | | [address] | [address] | | | | | [address] | [place] [address] | | | | | [place], [place] | [phone] | | | | | [address] | | | | | | [phone] | | | +--------+ + + + [...]
--- OUTSIDE RECORDS SUMMARY | ~2019-02-11 | XMS | Encounter Summary ---
Demographics + + + | Address | [address] | | | [place] [address] | + + + | Home Phone | | + + + | Preferred Language | Unknown | + + + | Marital Status | Unknown | + + + | Gnosticist Affiliation | Unknown | + + + | Race | Unknown | + + + | Ethnic Group | Unknown | + + + Author + + + | Author | [facility] | | | and [place] | + + + | Organization | [facility] | | | and [place] | [...] Team Providers + +------+ + | Care Radiologic Technology Instructor Name | Role | Phone | [...] [place] | | | | | | [phone] | (Fax) | | | | | [phone] | | | +--------+ + + + [...]
--- OUTSIDE RECORDS SUMMARY | ~2019-02-11 | XMS | Clinical Summary ---
Demographics + + + | Address | [address] | | | [place] [address] | + + + | Home Phone | | + + + | Preferred Language | Unknown | + + + | Marital Status | Unknown | + + + | Methodist Affiliation | Unknown | + + + | Race | Unknown | + + + | Ethnic Group | Unknown | + + + Author + + + | Author | [facility] | | | and [place] | + + + | Organization | [facility] | | | and [place] [...] Team Providers + +------+ + | Care Furniture Technician Name | Role | Phone | [...] | | | | | | | khnag) | + + + +---------+------+------+-------+ Active Problems [...] of | | | | | | nikolai coronary | | | | | | [...] +--------+ +---------+--------+ | MEDICARE | MEDICA | [id number] | 09/26/18 | [phone] | | Medica | | | RE | | 98-Pre | 5 | | re | | | PART A | | sent | | | | | | AND B | | | | | | + +--------+ +--------+ +---------+--------+ | [employer] | AMERIC | [id number] | | [phone] | | Indemn | [...] [place] | | | 4 (Home) | [phone] | + +--------+ +--------+ + +
--- OUTSIDE RECORDS SUMMARY | ~2019-02-11 | XMS | Encounter Summary ---
Demographics + + + | Address | [address] | | | [place] [address] | + + + | Home Phone | | + + + | Preferred Language | Unknown | + + + | Marital Status | Unknown | + + + | Advent Affiliation | Unknown | + + + | Race | Unknown | + + + | Ethnic Group | Unknown | + + + Author + + + | Author | [facility] | | | and [place] | + + + | Organization | [facility] | | | and [place] [...] Team Providers + +------+ + | Care Security Ambassador Name | Role | Phone | + +------+ + | Luanne Love | PCP | | | PA | | | + +------+ + Encounter Details +--------+ + + + + | Date | Type | Department | Care Team | Description | +--------+ + + + + | 05/21/ | Orders Only | [facility] | Maxx Nayak MD | | | 2016 | | CARDIOLOGY [place] | [address] | | | | | [address] | [place] [address] | | | | | [place], [place] | [phone] | | | | | [address] | | | | | | [phone] | | | +--------+ + + + [...]
--- OUTSIDE RECORDS SUMMARY | ~2019-02-11 | XMS | Encounter Summary ---
Demographics + + + | Address | [address] | | | [place] [address] | + + + | Home Phone | | + + + | Preferred Language | Unknown | + + + | Marital Status | Unknown | + + + | Evangelical Affiliation | Unknown | + + + | Race | Unknown | + + + | Ethnic Group | Unknown | + + + Author + + + | Author | [facility] | | | and [place] | + + + | Organization | [facility] | | | and [place] | [...] Team Providers + +------+ + | Care Fleet Administrator Name | Role | Phone | [...] [place] | | | | | | [address] | (Fax) | | | | | [phone] | | | +--------+ + + + [...]
--- OUTSIDE RECORDS SUMMARY | ~2019-02-11 | XMS | Encounter Summary ---
Demographics + + + | Address | [address] | | | [place] [address] | + + + | Home Phone [...] | Organization | [facility] | | | and [...] Team Providers + +------+ + | Care Hydraulics Teacher Name | Role | Phone | + +------+ + | Luanne Love | PCP | | | [place] | | | + +------+ + Encounter Details +--------+ + + + + | Date | Type | Department | Care Team | Description | +--------+ + + + + | 07/06/ | Orders Only | [facility] | Brianna Stewart | | | 2017 | | CARDIOLOGY [place] | [address] | | | | | [address] | [address] | | | | | [address] | [place] [address] | | | | | [place], [place] | [phone] | | | | | [address] | | | | | | [phone] | | | +--------+ + + + [...]
--- OUTSIDE RECORDS SUMMARY | ~2019-02-11 | XMS | Encounter Summary ---
Demographics + + + | Address | [address] | | | [place] [address] | + + + | Home Phone | | + + + | Preferred Language | Unknown | + + + | Marital Status | Unknown | + + + | Protestant Affiliation | Unknown | + + + | Race | Unknown | + + + | Ethnic Group | Unknown | + + + Author + + + | Author | [facility] | | | and [place] | + + + | Organization | [facility] | | | and [place] | [...] Team Providers + +------+ + | Care Conveyor Monitor Name | Role | Phone | + +------+ + PCP | Unavailable | + +------+ + Encounter Details +--------+ + + + + | Date | Type | Department | Care Team | Description | +--------+ + + + + | 05/19/ | Hospital | [facility] | Maxx Barker MD | NSTEMI (non-ST | | 2016 - | Encounter | [facility] | [address] | elevated myocardial | | | | CARE FLOOR [address] | [place] [address] | infarction) ([facility]) | | 05/21/ | | JESUS ALBERTO MORA | [phone] | | | 2016 | | [place], [place] | | | | | | [address] | | | | | | [phone] | | | +--------+ + + + [...] 1413 Date of Service: 05/21/15916 Status: Signed Senior Cytogenetics Laboratory Director: Maxx Barker MD (Physician) [facility] Service: Cardiology Discharge Summary Date [...] with Dr. Collins as she lives in [place]. Referral to cardiac rehab as an outpatient. [...] the prescriptions that you need to pickling grader. You may get the following medications from [...] Author: ANDREW Multani Service: (none) Author Type: Avionics Systems Technician Filed: 05/21/15 1509 Date of Service: 05/21/151507 Status: Signed Senior Cytogenetics Laboratory Director: ANDREW Multani (Avionics Systems Technician) 05/21/15 1500 Discharge Planning Evaluation Admitting Diagnosis NSTEMI Anticipated Disposition Facility Type Home BASE DRAW OPERATOR met with Leonie NORRIS Nurse, states no discharge needs or concerns at this time. DCP: Home MAKENZIE WILLAMS, Systems Security Analyst [phone] onver joseph Transaction, Provider Unknown - 05/21/2015 10:57 AM PST Nurse Progress Note by Leonie Tapia RN at 05/21/15 893 Author: Leonie Tapia RN Service: (none) Author Type: Registered Nurse Filed: 05/21/15 1058 Date of Service: 05/21/151056 Status: Signed Senior Cytogenetics Laboratory Director: Leonie Tapia RN (Registered Nurse) D/c instructions completed by JULIAN Steinberg. Pt and family stated understanding to d/c paperwo rk, follow up and new prescriptions. onver joseph Transaction, Provider Unknown - 05/20/2015 1:47 PM PST Case Management by Cierra Caban RN at 05/20/15 321 Author: Cierra Caban RN Service: (none) Author Type: Registered Nurse Filed: 05/20/154 Date of Service: 05/20/151346 Status: Signed Senior Cytogenetics Laboratory Director: Cierra Caban RN (Registered Nurse) 05/20/150 Discharge Planning Evaluation Admitting Diagnosis NSTEMI Readmission [...] y.o., female who lives with spouse in [facility]. She is independent in all [...] 05/19/151811 Date of Service: 05/19/151809 Status: Signed Senior Cytogenetics Laboratory Director: Chapo Coles RN (Registered Nurse) VSS, pt [...] 05/19/151721 Date of Service: 05/19/151721 Status: Signed Senior Cytogenetics Laboratory Director: Damaris Ritter RPH (Pharmacist) Clinical Pharmacy Note - Renal Dose Adjustment Damir Alejandro 84 y.o. 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 Bolus of NS started, pt placed in [...] EXTERNAL | | | | performed at [facility];[address] | | LAB | | | | [address];[place], [place] | | | | | | [address] | | | | + + + [...] | | | | | | ACUTE OH CKTRP PHONED TO | | | | | | 4RP REINIER Chan AT 0625 BY | | | | | | LJREAD BACK RESULTS | | | | | | VERIFIEDTesting | | | | | | performed at [facility] | | | | | | [address];[place] | | | | | | [address] | | | | + + + [...] EXTERNAL | | | | performed at [facility];[address] | | LAB | | | [address];[place], [place] | | | | | | [address] | | | | + + + [...] | | LAB | | | | [facility];[address] [place] [address] | | | | | | [facility];[place] [address] | | | | + + + [...] | | | | | | ACUTE OH CALLED NURSING | | | | | | JENNIFER TARIQ AT | | | | | | 09:17 BY EW READ BACK | | | | | | RESULTS VERIFIEDTesting | | | | | | performed at [facility];[address] | | | | | | [address];[place], [place] | | | | | | [address] | | | | + + + [...] EXTERNAL | | | | performed at [facility];[address] | | LAB | | | | [address];[place], [place] | | | | | | [address] | | | | + + + [...] | | | ------REPORT ADDENDED------ INDICATIONS Acute OH / Wall | | | motion abnormailty [...] 0.45 m/s TV | | | Dec Park: 2.68 m/s2 TV Dec Time: 257.33 ms TV E Zack: 0.69 | | | m/s TV E/A Ratio: 1.50 Private Client Advisor: Authenticated by: Maxx | | | Malini DONOHUE Report Date/Time: 05-21-2015 09:31:01 | | + + + + + | Procedure Note | + + | Rogers Haddad Conversion - 11/10/2018 5:37 PM PDT Patient Name: Aissatou ALEJANDRO of | | : 1930 Performing Physician: Maxx Barker | | MD ------REPORT | | ADDENDED------INDICATIONS Acute OH / Wall motion abnormailty | | CONCLUSIONS [...] mlLAESV Index (A-L): 26.86 ml/m2LAAs A2C: 14.91 [id number] A-L | | A2C: 42.94 mlLALs A2C: 4.39 cmLAAs A4C: 13.05 su9TEDKB A-L A4C: 31.55 mlLALs | | A4C: [...] Vmax: 2.19 cm2AVA (VTI): | | 2.30 xm9BSRP Dopp: 4.35 l/dmuq2CBNU Dopp: 6.09 l/minHR: 71.65 BPMLVOT maxPG: | [...] 0.82 m/sTV A Zack: 0.45 m/sTV Dec Park: 2.68 | | m/s2TV Dec Time: 257.33 msTV E Zack: 0.69 m/sTV E/A Ratio: 1.50 Private Client Advisor: | | ASAuthenticated by: Maxx Barker MDReport [...] A Zack: 0.45 m/s | |TV Dec Park: 2.68 m/s2 | |TV Dec Time: 257.33 ms | |TV E Zack: 0.69 m/s | |TV E/A Ratio: 1.50 | | | |Private Client Advisor: | |Authenticated by: Maxx Barker MD | [...] | | | | | performed at [facility];[address] | | | | | | [facility];[place], [place] | | | | | | [address] | | | | + + + [...] EXTERNAL | | | | performed at [facility];[address] | K/uL | LAB | | | | [address];[place] | | | | | | [address] | | | | + + + + + + | RED CELL | 3.27 (L)Comment: Testing | 3.70 - 5.10 | EXTERNAL | | | COUNT | performed at [facility];[address] | M/uL | LAB | | | | [address];[place] | | | | | | [address] | | | | + + + + + + | Hgb | 8.7 (L)Comment: Testing | 11.3 - 15.5 | EXTERNAL | | | | performed at [facility];888 | g/dL | LAB | | | | [address];[place] | | | | | | [address] | | | | + + + + + + | Hematocrit, | 27.8 (L)Comment: Testing | 34.0 - 46.0 % | EXTERNAL | | | POC | performed at [facility];[address] | | LAB | | | | [address];[place] | | | | | | [address] | | | | + + + + + + | MCV | 84.9Comment: Testing | 80.0 - 100.0 fl | EXTERNAL | | | | performed at [facility];[address] | | LAB | | | | [address];[place] | | | | | | [address] | | | | + + + + + + | MCH | 26.7 (L)Comment: Testing | 27.0 - 34.0 pg | EXTERNAL | | | | performed at [facility];[address] | | LAB | | | | [address];[place] | | | | | | [address] | | | | + + + + + + | MCHC | 31.5 (L)Comment: Testing | 32.0 - 35.5 | EXTERNAL | | | | performed at [facility];[address] | g/dL | LAB | | | | [address];[place] | | | | | | [address] | | | | + + + + + + | RDW-CV | 46.8Comment: Testing | 37 - 53 fl | EXTERNAL | | | | performed at [facility];[address] | | LAB | | | | [address];[place] | | | | | | [address] | | | | + + + + + + | Platelet | 207Comment: Testing | 150 - 400 K/uL | EXTERNAL | | | Count | performed at [facility];[address] | | LAB | | | Plasma | [address];[place] | | | | | | [address] | | | | + + + + + + | MPV | 8.1Comment: Testing | fl | EXTERNAL | | | | performed at [facility];[address] | | LAB | | | | [address];[place] | | | | | | [address] | | | | + + + + + + | Differentia | AUTOMATEDComment: | | EXTERNAL | | | l Type | Testing performed at | | LAB | | | | [facility];[address];[place] [address] | | | | + + + + + + | % Segmented | 73.07Comment: Testing | % | EXTERNAL | | | | performed at [facility];[address] | | LAB | | | Neutrophils | [address];[place] | | | | | | [address] | | | | + + + + + + | % | 15.96Comment: Testing | % | EXTERNAL | | | Lymphocytes | performed at [facility];[address] | | LAB | | | | [address];[place] | | | | | | [address] | | | | + + + + + + | % Monocytes | 9.56Comment: Testing | % | EXTERNAL | | | | performed at [facility];[address] | | LAB | | | | [address];[place] | | | | | | [address] | | | | + + + + + + | % | 1.00Comment: Testing | % | EXTERNAL | | | Eosinophils | performed at [facility];[address] | | LAB | | | | [address];[place] | | | | | | [address] | | | | + + + + + + | % Basophils | 0.41Comment: Testing | % | EXTERNAL | | | | performed at [facility];[address] | | LAB | | | | [address];[place] | | | | | | [address] | | | | + + + + + + | Absolute | 5.60Comment: Testing | 1.90 - 7.40 | EXTERNAL | | | Segmented | performed at [facility];[address] | K/uL | LAB | | | Neutrophils | [address];[place] | | | | | | [address] | | | | + + + + + + | Absolute | 1.22Comment: Testing | 1.00 - 3.90 | EXTERNAL | | | Lymphocytes | performed at [facility];[address] | K/uL | LAB | | | | [address];[place] | | | | | | [address] | | | | + + + + + + | Absolute | 0.73Comment: Testing | 0.00 - 0.80 | EXTERNAL | | | Monocytes | performed at [facility];[address] | K/uL | LAB | | | | [address];[place] | | | | | | [address] | | | | + + + + + + | Absolute | 0.08Comment: Testing | 0.00 - 0.50 | EXTERNAL | | | Eosinophils | performed at [facility];[address] | K/uL | LAB | | | | [address];[place] | | | | | | [address] | | | | + + + + + + | Absolute | 0.03Comment: Testing | 0.00 - 0.10 | EXTERNAL | | | Basophils | performed at [facility];[address] | K/uL | LAB | | | | [address];[place], [place] | | | | | | [address] | | | | + + + [...] at | | | | | | [facility];[address] [place] [address] | | | | | | [facility];[place], [place] | | | | | | [id number] ON 05/20 | | | | | [...] EXTERNAL | | | | performed at [facility] | | LAB | | | | [address];[place] | | | | | | [address] | | | | + + + [...] EXTERNAL | | | | performed at [facility];[address] | | LAB | | | | [address];[place], [place] | | | | | | [address] | | | | + + + [...] | | | | | [place] [address] | | | | + + + + + + | Triglycerid | 216 (H)Comment: Testing | mg/dL | EXTERNAL | | | es | performed at [facility], [address] | | LAB | | | | [address], | | | | | | [place] [address] | | | | + + + + + + | HDL | 37 (L)Comment: Testing | mg/dL | EXTERNAL | | | | performed at [facility], [address] | | LAB | | | | [address], | | | | | | [place] [address] | | | | + + + + + + | LDL | 59Comment: Testing | mg/dL | EXTERNAL | | | Cholesterol | performed at [facility], [address] | | LAB | | | , | [address] [facility], | | | | | Calculated, | [place] [address] | | | | | External | [...] EXTERNAL | | | | performed at [facility];[address] | mmol/L | LAB | | | | [address];[place] | | | | | | [address] | | | | + + + + + + | K | 4.3Comment: Testing | 3.5 - 4.9 | EXTERNAL | | | | performed at [facility];[address] | mmol/L | LAB | | | | [address];[place] | | | | | | [address] | | | | + + + + + + | Cl | 113 (H)Comment: Testing | 99 - 109 mmol/L | EXTERNAL | | | | performed at [facility];[address] | | LAB | | | | [address];[place] | | | | | | [address] | | | | + + + + + + | CO2 | 24Comment: Testing | 23 - 32 mmol/L | EXTERNAL | | | | performed at [facility];[address] | | LAB | | | | [address];[place] | | | | | | [address] | | | | + + + + + + | Anion Gap | 10Comment: Testing | 5 - 20 mmol/L | EXTERNAL | | | | performed at [facility];[address] | | LAB | | | | [address];[place] | | | | | | [address] | | | | + + + + + + | Glucose, | 85Comment: Testing | 65 - 99 mg/dL | EXTERNAL | | | Fasting | performed at [facility];[address] | | LAB | | | | [address];[place] | | | | | | [address] | | | | + + + + + + | BUN | 19Comment: Testing | 8 - 25 mg/dL | EXTERNAL | | | | performed at [facility];[address] | | LAB | | | | [address];[place] | | | | | | [address] | | | | + + + + + + | Creatinine | 1.2 (H)Comment: Testing | 0.50 - 1.00 | EXTERNAL | | | | performed at [facility];[address] | mg/dL | LAB | | | | [address];[place] | | | | | | [address] | | | | + + + + + + | BUN/Creatin | 16Comment: Testing | | EXTERNAL | | | ine Ratio | performed at [facility];[address] | | LAB | | | | [address];[place] | | | | | | [address] | | | | + + + + + + | Calcium | 7.1 (L)Comment: Testing | 8.5 - 10.5 | EXTERNAL | | | | performed at [facility];[address] | mg/dL | LAB | | | | [address];[place] | | | | | | [address] | | | | + + + [...] | | | | | | at [facility];[address];[place] [address] | | | | + + + [...] [address];[place] [address] | | | | + + + [...] | | | | | | ACUTE OH RESULT READ | | | | | | BACK BY:MARK Lackey/YayaP ON | | | | | | [id number] AT 0051, | | | | | | VAPTesting performed at | | | | | | [facility];[address] [place] [address] | | | | | | [facility];[place] [address] | | | | + + + [...] EXTERNAL | | | | performed at [facility];[address] | | LAB | | | | [address];[place], [place] | | | | | | [address] | | | | + + + [...] [address];[place] [address] | | | | + + + [...] | | | | | | ACUTE OH CALLED TO | | | | | | ZEN Barros ON 4RP AT 1920 | | | | | | BY CD, READ BACKTesting | | | | | | performed at [facility];[address] | | | | | | [facility];[place], [place] | | | | | | [address] | | | | + + + [...] EXTERNAL | | | | performed at [facility];[address] | | LAB | | | | [address];[place], [place] | | | | | | [address] | | | | + + + [...] radial artery canalized with | | | 6-Lithuanian cylinder sheath. 2.5 mg verapamil, 200 mcg nitroglycerin, | | | 5000 international units of heparin was given through the sheath. | | | Over 260 exchange wire, 5-Lithuanian FL4 diagnostic catheter advanced to | | | the ascending aorta to selectively engage the left main. Contrast was | | | injected. Selective angiogram for the left main, LAD, left | | | circumflex artery performed in different views. Over the guidewire, | | | it was exchanged for a 5-Lithuanian FR-4 diagnostic catheter addressed to | | [...] exchanged | | | for RC-4 SC 6-Lithuanian guide that selectively engaged the RCA. A [...] 1% lidocaine. Right radial artery canalized with 6-Lithuanian cylinder | | sheath. 2.5 mg verapamil, 200 mcg nitroglycerin, 5000 international units | | of heparin was given through the sheath. Over 260 exchange wire, 5-Lithuanian | | FL4 diagnostic catheter advanced to the ascending aorta to selectively | | engage the left main. Contrast was injected. Selective angiogram for the | | left main, LAD, left circumflex artery performed in different views. Over | | the guidewire, it was exchanged for a 5-Lithuanian FR-4 diagnostic catheter | | addressed to [...] the catheter was exchanged for RC-4 SC 6-Lithuanian guide | | that selectively engaged the [...] radial artery canalized with | | | 6-Lithuanian cylinder sheath. 2.5 mg verapamil, 200 mcg nitroglycerin, | | | 5000 international units of heparin was given through the sheath. | | | Over 260 exchange wire, 5-Lithuanian FL4 diagnostic catheter advanced to | | | the ascending aorta to selectively engage the left main. Contrast was | | | injected. Selective angiogram for the left main, LAD, left | | | circumflex artery performed in different views. Over the guidewire, | | | it was exchanged for a 5-Lithuanian FR-4 diagnostic catheter addressed to | | [...] exchanged | | | for RC-4 SC 6-Lithuanian guide that selectively engaged the RCA. A [...] 1% lidocaine. Right radial artery canalized with 6-Lithuanian cylinder | | sheath. 2.5 mg verapamil, 200 mcg nitroglycerin, 5000 international units | | of heparin was given through the sheath. Over 260 exchange wire, 5-Lithuanian | | FL4 diagnostic catheter advanced to the ascending aorta to selectively | | engage the left main. Contrast was injected. Selective angiogram for the | | left main, LAD, left circumflex artery performed in different views. Over | | the guidewire, it was exchanged for a 5-Lithuanian FR-4 diagnostic catheter | | addressed to [...] the catheter was exchanged for RC-4 SC 6-Lithuanian guide | | that selectively engaged the [...] | | | Clotting | performed at [facility];[address] | seconds | LAB | | | time, POC | [address];[place] | | | | | | [address] | | | | + + + [...] | | | Clotting | performed at [facility];[address] | seconds | LAB | | | time, POC | [address];[place], [place] | | | | | | [address] | | | | + + + [...] - 11/10/2018 5:37 PM PDT [id number]XR CHEST | | 1 VIEW05/19/2015 1:13 [...] | | | | | performed at [facility];[address] | | | | | | [address];[place], [place] | | | | | | [address] | | | | + + + [...] | | | | | performed at [facility];[address] | | | | | | [address] [facility];[place], [place] | | | | | | [address] | | | | + + + [...] EXTERNAL | | | | performed at [facility];[address] | mmol/L | LAB | | | | [address];[place] | | | | | | [address] | | | | + + + + + + | K | 4.4Comment: Testing | 3.5 - 4.9 | EXTERNAL | | | | performed at [facility];[address] | mmol/L | LAB | | | | [address];[place] | | | | | | [address] | | | | + + + + + + | Cl | 105Comment: Testing | 99 - 109 mmol/L | EXTERNAL | | | | performed at [facility];[address] | | LAB | | | | [address];[place] | | | | | | [address] | | | | + + + + + + | CO2 | 26Comment: Testing | 23 - 32 mmol/L | EXTERNAL | | | | performed at [facility];[address] | | LAB | | | | [address];[place] | | | | | | [address] | | | | + + + + + + | Anion Gap | 12Comment: Testing | 5 - 20 mmol/L | EXTERNAL | | | | performed at [facility];[address] | | LAB | | | | [address];[place] | | | | | | [address] | | | | + + + + + + | Glucose, | 95Comment: Testing | 65 - 99 mg/dL | EXTERNAL | | | Fasting | performed at [facility];[address] | | LAB | | | | [address];[place] | | | | | | [address] | | | | + + + + + + | BUN | 24Comment: Testing | 8 - 25 mg/dL | EXTERNAL | | | | performed at [facility];[address] | | LAB | | | | [address];[place] | | | | | | [address] | | | | + + + + + + | Creatinine | 1.5 (H)Comment: Testing | 0.50 - 1.00 | EXTERNAL | | | | performed at [facility];888 | mg/dL | LAB | | | | [address];[place] | | | | | | [address] | | | | + + + + + + | BUN/Creatin | 16Comment: Testing | | EXTERNAL | | | ine Ratio | performed at [facility];[address] | | LAB | | | | [address];[place] | | | | | | [address] | | | | + + + + + + | Calcium | 8.2 (L)Comment: Testing | 8.5 - 10.5 | EXTERNAL | | | | performed at [facility];888 | mg/dL | LAB | | | | [address];[place], [place] | | | | | | [address] | | | | + + + [...] | | | | | | at [facility];[address];[place] [address] | | | | + + + [...]
[~2019-02-11 20:07] MED LIST changes: +GABAPENTIN100 MG PO; +LEVAQUIN250 MG PO; +LEVOTHYROXINE100 MCG PO; +METRONIDAZOLE500 MG PO; +PREDNISONE20 MG PO; +SIMVASTATIN20 MG PO; +TIROSINT100 MCG PO
[2019-02-11] MEDS ORDERED: REMERON15 MG PO (20:39)
[2019-02-11] MEDS ORDERED: IRON325 M1 PO (20:39)
--- NOTE | 2019-02-12 12:29 | EKG ---
[facility] [address] [facility] [place] [address] Signed Normal sinus rhythm Nonspecific ST and T wave abnormality Abnormal ECG When compared with ECG of 27-NOV-2016 22:42, premature ventricular complexes are no longer present ST now depressed in Lateral leads Confirmed by KERRIE KABA MD ([id number]) on 02/12/2019 12:29:30 PM Electronically Signed By: KERRIE KABA MD 02/12/19 1229 PATIENT NAME: DAMIR ALEJANDRO Electrocardiogram DATE OF : 34 PHYSICIAN: KERRIE KABA MD REPORT #: [id number] REPORT IS CONFIDENTIAL AND NOT TO BE RELEASED WITHOUT AUTHORIZATION
== END 2019-02-11 23:13 | disposition home or self-care (01) ==
LOC: ED 20:07
DX: R07.9 Chest pain, unspecified (principal); E03.9 Hypothyroidism, unspecified; I25.2 Old myocardial infarction; Z86.73 Personal history of transient ischemic attack (TIA), and cerebral infarction without residual deficits; Z88.2 Allergy status to sulfonamides; Z88.5 Allergy status to narcotic agent; Z79.899 Other long term (current) drug therapy
CPT/HCPCS: 71045; 80053; 83735; 84484; 85025; 85610; 93005; 93010; 99285-25

== ENCOUNTER 2019-08-05 13:22 | Emergency (ER) | payer MEDICARE, OTHER ==
[~2019-08-05] VITALS: Ht 167.6 cm; Wt 59.0 kg
--- OUTSIDE RECORDS SUMMARY | ~2019-08-05 | XMS | Encounter Summary ---
Demographics + + + | Address | [address] | | | [place] [address] | + + + | Home Phone | | + + + | Preferred Language | Unknown | + + + | Marital Status | | + + + | Latter Day Affiliation | Unknown | + + + | Race | Unknown | + + + | Ethnic Group | Unknown | + + + Author + + + | Author | [facility] | | | and [place] | + + + | Organization | [facility] | | | and [...] Team Providers + +------+ + | Care Ski Lift Mechanic Name | Role | Phone | + +------+ + | Luanne Love | PCP | | | PA | | | + +------+ + Encounter Details +--------+ + + + + | Date | Type | Department | Care Team | Description | +--------+ + + + + | 02/01/ | Orders Only | [facility] | Brianna Stewart | | | 2017 | | CARDIOLOGY PATT | Stefani, CIRCUS SUPERVISOR [address] | | | | | [address] | [address] | | | | | [address] | [place] [address] | | | | | [place] | [phone] | | | | | [address] | | | | | | [phone] | | | +--------+ + + + [...] | Maxx Buchanan MD | | | 2019 | Visit | | [address] | | | | | | [address] [place] | | | | | | [address] | | | | | | | | +--------+---------+ + + + | 01/17/ | Office | Cardiology | Brianna Stewart | | | 2019 | Visit | | [address] | | | | | | [address] | | | | | | [place] [address] | | | | | | [phone] | | | | | | | | +--------+---------+ + + + documented as of this encounter Visit Diagnoses Not on filedocumented in this encounter"
--- OUTSIDE RECORDS SUMMARY | ~2019-08-05 | XMS | Encounter Summary ---
Demographics + + + | Address | [address] | | | [place] [address] | + + + | Home Phone | | + + + | Preferred Language | Unknown | + + + | Marital Status | | + + + | Hoahaoism Affiliation | Unknown | + + + | Race | Unknown | + + + | Ethnic Group | Unknown | + + + Author + + + | Author | [facility] | | | and [place] | + + + | Organization | [facility] | | | [...] Team Providers + +------+ + | Care Application Integrator Name | Role | Phone | + +------+ + | Luanne Love | PCP | | | PA | | | + +------+ + Reason for Visit + + + | Reason | Comments | + + + | Medication Refill | | + + + Encounter Details +--------+--------+ + + + | Date | Type | Department | Care Team | Description | +--------+--------+ + + + | 02/08/ | Refill | [facility] | Brianna Stewart | Medication Refill | | 2019 | | CARDIOLOGY [place] | [address] | | | | | [address] | [address] | | | | | [address] | [place] [address] | | | | | [place] | [phone] | | | | | [address] | | | | | | [phone] | | | +--------+--------+ + + + Social History + +-------+ [...] [place] | | | | | | [address] | | | | | | | | +--------+---------+ + + + | 01/17/ | Office | Cardiology | Brianna Stewart | | | 2019 | Visit | | [address] | | | | | | [address] | | | | | | [place] [address] | | | | | | [phone] | | | | | | | | +--------+---------+ + + + documented as of this encounter Visit Diagnoses Not on filedocumented in this encounter"
--- OUTSIDE RECORDS SUMMARY | ~2019-08-05 | XMS | Encounter Summary ---
Demographics + + + | Address | [address] | | | [place] [address] | + + + | Home Phone | | + + + | Preferred Language | Unknown | + + + | Marital Status | | + + + | Yarsani Affiliation | Unknown | + + + [...] Team Providers + +------+ + | Care Junior Systems Engineer Name | Role | Phone | + +------+ + | Luanne Love | PCP | | | PA | | | + +------+ + Reason for Referral Evaluate & Treat (Routine) + + + + + + + | Status | Reason | Specialty | Diagnoses / | Referred By | Referred To | | | | | Procedures | Contact | Contact | + + + + + + + | Authorizatio | Specialty | Nephrology | Diagnoses | Terry, | Chanel, Maxx | | n not | Services | | Stage 3 | Brianna Ko, | MD [address] | | Required | Required | | chronic | [employer] [address] | [address] | | | | | kidney | [address] | [address] | | | | | disease | [address] | [place], | | | | | ([facility]) | [place], [place] | [place] [address] | | | | | | [address] | Phone: | | | | | | Phone: | [phone] | | | | | | [phone] | Fax: | | | | | | Fax: | [phone] | | | | | | [phone] | | + + + + + + + Reason for Visit + + + | Reason | Comments | + + + | Follow-up | 3 week | + + + Encounter Details +--------+---------+ + + + | Date | Type | Department | Care Team | Description | +--------+---------+ + + + | 05/15/ | Office | [facility] | Brianna Stewart | Coronary artery | | 2020 | Visit | CARDIOLOGY [place] | [address] | disease involving | | | | [address] | [address] | [place] coronary | | | | [address] | [place] [address] | artery of [place] | | | | [place], [place] | [phone] | heart without angina | | | | [address] | | pectoris (Primary | | | | [phone] | | Dx); S/P drug | | | | | | eluting coronary | | | | | | stent placement; | | | | | | Essential | | | | | | hypertension; Mixed | | | | | | hyperlipidemia; | | | | | | History of PTCA; | | | | | | Systolic heart | | | | | | failure secondary to | | | | | | coronary artery | | | | | | disease (HCC); | | | | | | Ischemic | | | | | | cardiomyopathy; | | | | | | History of non-ST | | | | | | elevation myocardial | | | | | | infarction | | | | | | (NSTEMI); Chronic | | | | | | kidney disease, | | | | | | stage III | | | | | | (moderate); | | | | | | Cognitive deficits; | | | | | | Hypothyroidism, | | | | | | unspecified type | +--------+---------+ + + + Social History + +-------+ [...] + + documented as of this encounter Last Filed Vital Signs + + + + + | Vital Sign | Reading | Time Taken | Comments | + + + + + | Blood Pressure | 140/70 | 05/15/2019 1:55 PM | | | | | PST | | + + + + + | Pulse | 67 | 05/15/2019 1:55 PM | | | | | PST | | + + + + + | Temperature | - | - | | + + + + + | Respiratory Rate | - | - | | + + + + + | Oxygen Saturation | 94% | 05/15/2019 1:55 PM | | | | | PST | | + + + + + | Inhaled Oxygen | - | - | | | Concentration | | | | + + + + + | Weight | 60.8 kg (134 lb) | 05/15/2019 1:55 PM | | | | | PST | | + + + + + | Height | 162.6 cm (5' 4") | 05/15/2019 1:55 PM | | | | | PST | | + + + + + | Body Mass Index | 23 | 05/15/2019 1:55 PM | | | | | PST | | + + + + + documented in this encounter Patient Instructions Patient Instructions Brianan Stewart FNP - 05/15/2019 2:00 PM PSTYour labs looked go od except worsening kidney function , and thyroid function poor, but now back on thyroid med ication Work on staying better hydrated, and sip on water throughout The day , and try to drink 4 8 oz per day I made no changes to medications I referred you to Kidney Doctor , Dr. Buchanan, as your kidney function much worse See me back in 2 months to follow up on heart rate and blood pressure once thyroid better c ontrolled. documented in this encounter Progress Notes Brianna Stewart FNP - 05/15/2019 2:00 PM PSTFormatting of this note might be differe nt from the original. Date of visit: 05/15/2019 Primary Care Physician: REGINA Angeles CHIEF COMPLAINT: Chief Complaint Patient presents with Follow-up 3 week HISTORY OF PRESENT ILLNESS: Shoaib Bean , is an 88-year-old woman here today to follow-up on labs, and also I h ad requested that her timolol eyedrops be stopped is making her heart rate too low. She is here with her , Jeffry, who contributed to history, as she reports that her m tiffany can be poor.. Today, I reviewed all previous documentation available to me in electronic medical amira rds and from external sources. She has a history of 2 vessel coronary artery disease to RCA, and mid LAD, 2 stents to RCA 04/2015 after NSTEMI,, hypertension, hyperlipidemia, and chronic kidney disease stage III wit h severe anemia. She is very symptomatic for sleep apnea, and I had previously offered to refer her for slee p apnea but she did not want to pursue this I saw her last 04/24/2019 when she was overdue for follow-up, as I have not seen her in [facility] years. On that visit I had her follow-up with her plate slitter and inspector to get alternative eyedrops to atenolol, which were contributing to bradycardia, and also had reordered and res tarted her cardiac medications, and told her to follow-up urgently with her PCP, as she no l onger seem to be on her thyroid medications, or iron. Her last emergency room visit was February 11, 2019 for left-sided chest pain. I reviewed her ER documentation which noted that her chest pain was sharp and radiated to her back, sh e had no vomiting or shortness of breath and she had taken an old sublingual nitro with no e ffect and sublingual nitro given to her in the emergency room also did not seem to help her. Her EKG was documented as normal sinus rhythm with a rate of [address]-T wave changes. Her chest x-ray was reported as no acute findings and no heart failure, and troponi n was reported as negative x2., normal CMP except for low potassium of 3.5, and elevated cre atinine of 1.4 with GFR of 36, magnesium was slightly low at 1.9, and CBC was normal. She w as discharged home with instructions to follow-up with her mechanical ordnance assembler Her current and previous testing and procedures are detailed below. Today she reports that she did get her eyedrops changed, and her heart rate was improved in the clinic today, though blood pressure slightly more elevated. She also reported that she did follow-up with her PCP, and will be seeing her again next we ek, and has been restarted on her thyroid medication, but not her iron. She reports she has had no further episodes of chest pain since her emergency room visi t, and denies any palpitations peripheral edema, dyspnea, dizziness, or syncope. Her husban d reports she has not had any recent falls. She also denies any signs or symptoms of stroke or TIA. She continues to suffer from intermittent bouts of nausea and vomiting, and tends to be deh ydrated, and does not always drink water on a regular basis. She previously had ongoing pro blems with abdominal pain secondary to diverticulitis She continues to suffer from poor memory, She brought her medications at the visit today and I reviewed them personally. REVIEW OF SYSTEMS: Negative except for pertinent items noted in HPI. Constitutional: reports mild Fatigue. Denies unexplained weight loss. Appetite is Poor, Weight is stable. Denies night sweats fevers or chills HENT: Denies nosebleeds. reports poor hearing Denies dysphagia Eyes:Hx cataract surgery Denies visual disturbance or double vision. Denies history of gl aucoma Respiratory: BRYAN with more extreme exertion, Denies cough Denies hemoptysis or excessive sputum production Cardiovascular: denies chest pain today. C/o chronic mild right ankle swelling Denies palp itations . Denies claudication. . Gastrointestinal: HX GERD,on Pepcid , GIB with acute diverticulitis 12/23/2017.c/o intermitt ent abd pain. Denies nausea, vomiting, and blood in stool. Genitourinary: Negative for hematuria. 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 Denies rash or lesions Neurological: poor Memory. Denies history of stroke/Transient ischemic attack. Denies dizz iness, syncope and numbness. Denies focal motor or sensory deficits Hematological: Does not bruise/bleed easily. Denies history of cancer Endocrine: Hx thyroid disease Denies diabetes Denies excessive thirst or hunger. Psychiatric/Behavioral: Hx depression, Vaccines: Current on flu vaccine: 12/29/2018. Current on pneumonia vaccine. Habits: Denies history of smoking. Denies EtOH use. Denies recreational illicit drug us e. Occasional Exercise, falls often, uses walker, ,Jeffry, is also my patient . Outpatient Medications Prior to Visit Medication Sig Dispense Refill atorvaSTATin (LIPITOR) 40 mg tablet Take 1 tablet by mouth nightly. 90 tablet 3 clopidogrel (PLAVIX) 75 mg tablet Take 1 tablet by mouth Daily. 90 tablet 3 dorzolamide (TRUSOPT) 2% ophthalmic solution Place 1 drop into the left eye 2 times cisco ly. famotidine (PEPCID) 20 mg tablet TAKE 1 TABLET BY MOUTH TWICE DAILY (Patient not taking : Reported on 04/24/2019) 180 tablet 1 isosorbide mononitrate (IMDUR) 30 mg ER tablet Take 30 mg by mouth Daily. levothyroxine (SYNTHROID) 137 mcg tablet Take 137 mcg by mouth Daily. metoprolol tartrate (LOPRESSOR) 25 mg tablet Take 1 tablet by mouth 2 times daily. 60 t ablet 11 mirtazapine (REMERON) 15 MG tablet Take 1 tablet by mouth daily. nitroglycerin (NITROSTAT) 0.[address] 0.4 mg under the tongue as needed. ondansetron (ZOFRAN ODT) 4 mg disintegrating tablet Take 4 mg by mouth every 8 hours as needed for Nausea. sucralfate (CARAFATE) 1 g tablet Take 1 g by mouth 4 times daily. timolol maleate (TIMOPTIC) 0.5% ophthalmic solution Place 1 drop into the left eye 2 ti mes daily. No facility-administered medications prior to visit. PHYSICAL EXAM: Wt Readings from Last 3 Encounters: 05/15/19 60.8 kg (134 lb) 04/24/19 60.7 kg (133 lb 12.8 oz) 06/19/15 59.2 kg (130 lb 8 oz) Temp Readings from Last 3 Encounters: No data found for Temp BP Readings from Last 3 Encounters: 05/15/19 140/70 04/24/19 118/76 06/19/15 138/68 Pulse Readings from Last 3 Encounters: 05/15/19 67 04/24/19 57 06/19/15 66 Vital signs: 02/07/2018: Wt: 124 Lbs. BP:126/62 . HR.64 Vital signs: 08/09/2017: Wt: 129 Lbs. BP: 126/54 . HR. 62 Vital signs:02/01/2017: Wt:126 Lbs. BP: 144/76 . HR. 65 GENERAL: Frail elderly woman , in no distress. Appears approximately stated age. HEENT: Normocephalic, atraumatic. Laceration to back of head, healing well, minor bruisin g, edges approximated, no erythema or exudate EYES: PERRL, EOM normal. MOUTH: Oral mucosae moist, Poor dentition adequate, no lesions noted NECK: No JVD, lymphadenopathy, thyromegaly, bruits. Carotid pulses are 2+ bilaterally LUNGS: Kyphotic Clear bilaterally, with no rales, rhonchi or wheezing noted, respiration s unlabored HEART: Nondisplaced PMI, regular rate and rhythm, S1, S2 normal. No murmurs, rubs or gall ops noted. ABDOMEN: Soft, nontender, no organomegaly, masses or bruits. Bowel sounds are normal in a ll 4 quadrants. The abdominal aortic pulsation is not palpable. EXTREMITIES: Arthritic changes to hands , no edema to ankles today Radial pulses 2+ bilate rally. Femoral pulses are 2+ bilaterally without bruits. DP and PT pulses are 2+ bilateral ly. No clubbing. SKIN: Warm and dry, capillary refill is normal, no lesions. NEUROLOGIC: Poor memory Awake, alert and oriented x 3. No focal motor or sensory deficits. PSYCHIATRIC: Appropriate, affect appears normal DATA: Blood tests: Lab Results Component Value Date WBC 7.67 05/20/2015 RBC 3.27 (L) 05/20/2015 HGB 8.7 (L) 05/20/2015 Lab Results Component Value Date NA 143 05/20/2015 K 4.3 05/20/2015 CL 113 (H) 05/20/2015 CO2 24 05/20/2015 ANIONGAP 10 05/20/2015 GLUF 85 05/20/2015 BUN 19 05/20/2015 EGFR 46 (L) 05/20/2015 Lab Results Component Value Date CHOL 139 05/20/2015 TRIG 216 (H) 05/20/2015 LDL 59 05/20/2015 GLUF 85 05/20/2015 No results found for: BNP, TSH, CRP No results found for: TOTEPI CARDIAC PROCEDURES/IMAGING PROCEDURES/IMAGING: Last Cath/PCI: , 05/19/2015:(high risk NSTEMI) left main OK, 60% prox-LAD, 50% mid-LAD at D1 , 90% osteal D1, Ramus OK, LCx OK, 50-60% prox-RCA, mid-RCA occluded. RCA stented.prox-RCA ( 3.0*52mm Promus Premier), mid-RCA (2.25*24mm Promus Premier). Last Stress Test, 09/02/2015 ([facility]): Lexiscan, old inferior infarction, no ischemia, LVEF 50%.( family preferred to continue medical treatment) ECHO: Last Echo: 01/27/2018: ([facility]): Sinus rhythm. Technically difficult study with suboptimal vie ws. EF 45-50 percent, decreased. LV normal in size and wall thickness. Inferior and infer obasal severe hypokinesis. RV normal in size and function. Normal size atria. Aortic valv e trileaflet, mild aortic regurgitation, no aortic stenosis, mild MR, mild MAC. Normal tric uspid valve. Pulmonary pressures not assessed due to absence of adequate TR jet. Mild TN. No pericardial or pleural effusion. IVC WNL, normal CVP. Aortic root, ascending aorta, an d aortic arch are normal Echo: 05/19/2015: postero-basal severe hypokinesis, LVEF 60%, trace MR, trace TR, trace PI. EKG/EVENT MONITOR ECG, 05/20/2015: sinus rhythm, Q-wave lead III only, inferior T-wave inversion, low voltag e in limb leads, non-spec ST-T changes anteriorly. EK2016: Normal sinus rhythm, T-wave inversions inferior and lateral leads, more pr onounced than previously , Otherwise stable rate 61 bpm, TN 134 ms, QRS 92 ms, QTC 430 ms EK11/27: ([facility]). Sinus rhythm with sinus arrhythmia, PVC's. T-wave inv ersion to inferior leads and lateral leads, less pronounced than EKG done in June and in e office today. Rate 67 bpm, TN 146 ms, QRS 82 ms, QTC 450 ms (personally reviewed by me grisel d compared to previous EKG's) EK: Sinus bradycardia, stable T-wave inversion to inferior and lateral leads , rate 52 bpm, TN 142 ms, QRS 86 ms, QTC 427 ms (personally reviewed by me and compared to previous EKG's) EK02/07/2018: Normal sinus rhythm, stable T-wave inversion to inferolateral leads. Rate 64 bpm, TN 138 ms, QRS 90 ms, QTC 441 ms (personally reviewed by me and compared to previo us EKG 02/01/2017, rate is faster, otherwise similar morphology) EK02/11/2019:( [facility] ER) Normal sinus rhythm, nonspecific ST-T wave abnormality to infero lateral leads, stable. Rate 64 bpm, TN 136 ms, QRS 106 ms, QTC 437 ms, tracing personally r eviewed by me EK04/24/2019: Sinus bradycardia, ST and T wave abnormalities to inferior and anterolatera l leads, similar to previous EKG's, rate 6 bpm, TN 150 ms, QRS 80 ms, QTC 441 ms seen person ally reviewed by me, and similar morphology to EKG performed in January 2019 and serum, and as well as January 2018 LABS: Labs: 03/2016: WBC 12.4, hemoglobin 10.8, hematocrit 34, platelets 224, sodium 133, potassiu m 3.9, BUN 20, creatinine 1.15, glucose 101, influenza A and B negative, , iron 19.03, TIBC 328, percent sat 5.8, ferritin 64.09, UIBC 209, transferrin 234 Labs: 04/09, sodium 139, potassium 3.7, chloride 103, glucose 128, BUN 15, creatinine 1.10, GFR 47 Labs: 2016: Hepatitis A negative, rubella titer 17.4, HIV non reactive, hemoglobin 11 .7, hematocrit 35.4, WBC 7.7, platelets 263, Labs: 2016: Iron: Iron 50.44, TIBC 306, sign 19.1 percent, ferritin 111.2, U IBC 248, transferrin 218. CBC: WBC 7.4, hemoglobin 12.2, hematocrit 37.6, platelets 250 Labs: 11/27/2016: CBC: WBC 7.1, hemoglobin 12.5, hematocrit 37.3, platelets 255. CMP: Glucos e 101, BUN 25, creatinine 1.34, GFR 38, sodium 139, potassium 3.8, chloride 103, total bilir ubin 0.4, AST 26, ALT 17, alk phos 59, troponin T <0.010 Labs: 02/05/2017: Lipids: ( no statin) Cholesterol 253, triglycerides 211, HDL 57.7, LDL 15 3, VLDL 42, ratio 4.4, non-HDL cholesterol 195. CMP: Sodium 142, potassium 4.1, chloride 10 5, glucose 85, BUN 27, creatinine 1.4, GFR 36, AST 21, ALT 16, alk phos 67, total bilirubin 0.6, albumin 4.2, T4 6 .34, TSH 2.5 Labs: 01/04/2018: CMP: Sodium 138, potassium 3.9, chloride 101, glucose 96, BUN 14, creatini ne 1.26, AST 19, ALT 10, alk phos 40, total bilirubin 0.4, GFR 40, albumin 3.8. Iron and to dee iron binding: Iron 55.92, TIBC 301, percent sat 19.9, transferrin 214. Ferritin 76. Th yroid: TSH 29.16. Troponin T less than 0.0103 at CBC: WBC 8.8, RBC 4.42, hemoglobin 13.3, hematocrit 41.3. ESR: 12 Labs: 02/11/2018: Lipids: ( simvastatin 20 mg) Cholesterol 179, triglycerides 162, HDL 61.9 , LDL 85 Labs: 02/11/2019: [facility]: CMP: Sodium 141, potassium 3.5, chloride 106, BUN 21, creatinine 1.4, AST 20, ALT 13, alk phos 48, total bili 0.4, GFR 36, albumin 4.5. Magnesium: 1.9. Tro ponin T <0.010 CBC: WBC 6.1, RBC 4.27, hemoglobin 13.1, hematocrit 39.1, platelets 260 Labs: 05/08/2019: Lipids:( Atorvastatin 40 mg) Cholesterol 172, triglycerides 137, HDL 62. 6, LDL 82. CMP: Sodium 141, potassium 4.3, chloride 103, glucose 87, BUN 25, creatinine 1.7 8, GFR 27, AST 29, ALT 22, alk phos 53, total bili 0.7, albumin 4.5.: Thyroid TSH 105.2. T 4 0.396 ASSESSMENT & PLAN: She was here today with her as overdue for follow up, and needs medication refill s She has problems as detailed below. Her labs performed in April are detailed above, and show her lipids are well controlled on atorvastatin 40 mg , CMP was normal except for further decline in her kidney function wi th a GFR of 27, creatinine of 1.78, and BUN of 25 with normal liver enzymes, and her thyroid function was also very abnormal with a TSH of 105. I reviewed her labs in detail with her and her , and discussed with him that I was c oncerned about the persistent decline in her renal function, and have strongly encouraged he r to stay well-hydrated by sipping water throughout the day, and have also referred her for further evaluation and treatment of her renal function to fire captain, Dr. Buchanan. Her thyroid function was also very abnormal, but she is now back on her thyroid medication, and is following up again next week with her PCP. I discussed with her that I would see her back in 2 months to give a chance for her thyr oid function to normalize, and then would adjust her cardiac medications as indicated, and o rder her an updated echo. For her cardiac medications, I have continued Imdur 30 mg eb y, metoprolol tartrate 25 mg twice daily, atorvastatin 40 mg nightly, Plavix 75 mg daily, a nd she does not need to be on aspirin if she is on Plavix, and encouraged her to take it af ter she has eaten a full meal Her short-term memory deficits seem better today, and she seemed brighter and more alert, and I have encouraged her to continue to follow-up regularly with all of her health care pro viders. 1. Coronary artery disease involving [place] coronary artery of [place] heart without angina pectoris 2. S/P drug eluting coronary stent placement 3. Essential hypertension 4. Mixed hyperlipidemia 5. History of PTCA 6. 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 Ischemic cardiomyopathy 8. History of non-ST elevation myocardial infarction (NSTEMI) 9. Chronic kidney disease, stage III (moderate) 10. Cognitive deficits 11. Hypothyroidism, unspecified type Orders Placed This Encounter Procedures Ambulatory Referral to [facility] Nephrology The following portions of the patient's history were personally reviewed by me and updated as appropriate: EKG tracings, other specialty provider and PCP notes,any Hospital admission and discharge summaries, any ER records , current and previous cardiac testing and procedure reports and d josé miguel, medication bottles brought to visit today personally reviewed by me. Allergies, current medications.labs Family history, past medical history, past social history, past surgical history. Problem list. This encounter was dictated with voice recognition software and may contain inadvertent rec ognition errors. Mimi CHAVEZ [facility] Cardiology 05/15/2019 Pineda figueredo in this encounter Plan of Treatment +--------+---------+ + + + | Date | Type | Specialty | Care Team | Description | +--------+---------+ + + + | 11/07/ | Office | Nephrology | Maxx Buchanan MD | | 2019 | Visit | | [address] [facility] | | | | | | [address] [place], [place] | | | | | | [address] | | | | | | | | +--------+---------+ + + + | 01/17/ | Office | Cardiology | Brianna Stewart | | | 2019 | Visit | | [address] | | | | | | [address] | | | | | | [facility] [address] | | | | | | [phone] | | | | | | | | +--------+---------+ + + + + + +--------+ + + | Name | Type | Priori | Associated Diagnoses | Order Schedule | | | | ty | | | + + +--------+ + + | Ambulatory Referral | Outpatient | Routin | Chronic kidney | Ordered: 05/15/2019 | | to [facility] Nephrology | Referral | e | disease, stage III | | | | | | (moderate) | | + + +--------+ + + documented as of this encounter Visit Diagnoses + + | Diagnosis | + + | Coronary artery disease involving [place] coronary artery of [place] heart without | | angina pectoris - Primary | + + | S/P drug eluting coronary stent placement | + + | Essential hypertension Unspecified essential hypertension | + + | Mixed hyperlipidemia | + + | History of PTCA Postsurgical percutaneous transluminal coronary angioplasty status | + + | Systolic heart failure secondary to coronary artery disease (HCC) Unspecified | | systolic heart failure | + + | Ischemic cardiomyopathy Other specified forms of chronic ischemic heart disease | + + | History of non-ST elevation myocardial infarction (NSTEMI) Old myocardial infarction | + + | Chronic kidney disease, stage III (moderate) | + + | Cognitive deficits Unspecified persistent mental disorders due to conditions | | classified elsewhere | + + | Hypothyroidism, unspecified type | + + documented in this encounter
--- OUTSIDE RECORDS SUMMARY | ~2019-08-05 | XMS | Encounter Summary ---
Demographics + + + | Address | [address] | | | [place] [address] | + + + | Home Phone | | + + + | Preferred Language | Unknown | + + + | Marital Status | | + + + | Jewish Affiliation | Unknown | + + + [...] Team Providers + +------+ + | Care Party Plan Selling Distributor Name | Role | Phone | + +------+ + PCP | Unavailable | + +------+ + Encounter Details +--------+ + + + + | Date | Type | Department | Care Team | Description | +--------+ + + + + | 05/19/ | Hospital | [facility] | Maxx Barker MD | NSTEMI (non-ST | | 2016 - | Encounter | [facility] | [address] | elevated myocardial | | | | CARE FLOOR [address] | [place] [address] | infarction) ([facility]) | | 05/21/ | | JESUS ALBERTO MORA | [phone] | | | 2015 | | [place], [place] | | | | | | [address] | | | | | | [phone] | | | +--------+ + + + [...] + + + | Blood Pressure | 133/63 | 05/21/2015 8:44 AM | | | | | PST | | + + + + + | Pulse | 68 | 05/21/2015 8:44 AM | | | | | PST | | + + + + + | Temperature | 36.8 C (98.3 F) | 05/21/2015 8:44 AM | | | | | PST | | + + + + + | Respiratory Rate | 18 | 05/21/2015 8:44 AM | | | | | PST | | + + + + + | Oxygen Saturation | - | - | | + + + + + | Inhaled Oxygen | - | - | | | Concentration | | | | + + + + + | Weight | 62.1 kg (136 lb 14.6 | 05/21/2015 8:44 AM | | | | oz) | PST | | + + + + + | Height | 162.6 cm (5' 4") | 05/21/2015 8:44 AM | | | | | PST | | + + + + + | Body Mass Index | 23.5 | 05/21/2015 8:44 AM | | | | | PST | | + + + + + documented in this encounter Discharge Summaries Maxx Barker - 05/21/2015 9:17 AM PST Discharge Summaries by Maxx Barker MD at 05/21/15 0917 Author: Maxx Barker MD Service: Cardiology Author Type: Physician Filed: 05/21/15 1413 Date of Service: 05/21/15 0917 Status: Signed Straight Edger: Maxx Barker MD (Physician) [facility] Service: Cardiology Discharge Summary Date of Admission: 05/19/2015 Date of Discharge: 05/21/2015 Discharge Physician: Maxx Barker MD DISCHARGE DIAGNOSIS: 1. Coronary artery disease with high risk non-ST elevation myocardial infarction. Status po st angioplasty for the RCA with 2 nonoverlapping drug-eluting stents. 2. acute/chronic renal insufficiency. 3. Anemia. 4. Hypertension. 5. Hyperlipidemia. PROCEDURES: Left heart catheterization with angioplasty for the RCA with 2 nonoverlapping drug-eluting stents. HOSPITAL COURSE: is an 84 years old lady who was admitted on May 19, 2015 for high risk non-ST elevation myocardial infarction. she underwent emergent left heart catheterization. Found to have single visit disease in th e RCA. Treated with 2 nonoverlapping drug-eluting stents. She was observed in the hospital for 2 days with no significant complications. She was discharged home in stable condition. DISCHARGE EXAM Vital Signs: BP 133/63 mmHg | Pulse 68 | Temp(Src) 98.3 F (36.8 C) (Oral) | Resp 18 | Ht 1.626 m (5' 4") | Wt 62.1 kg (136 lb 14.5 oz) | BMI 23.49 kg/m2 | SpO2 95% HEENT: No xanthelasmas. Extraocular movements were intact. No jaundice. NECK: no JVD, lymphadenopathy. Trachea is at midline. Thyroid is not palpable. CARDIAC: There is normal S1 and S2. No added sounds, murmurs, gallop, or rub. CHEST: Normal bilateral symmetrical chest excursion. Good bilateral air entry with no crack les or wheezing. No evidence of dullness. ABDOMEN: Soft and lax. No tenderness. No palpable organs. Active bowel sounds. EXTREMITIES: No lower extremities edema. NEURO: Alert and oriented times three with no focal deficit. Cranial nerves are grossly no rmal. SKIN: No bruises or rash. DATA: Recent Labs Lab 05/20/15 0550 NA 143 K 4.3 CO2 24 BUN 19 CREATININE 1.2* MG 2.0 Recent Labs Lab 05/21/15 0437 05/20/15 0736 05/19/15 2347 CKTOTAL 651* 1513* 2250* CKMB 52.1* 265.3* 513.4* CKMBINDEX 8.0 17.5 22.8 TROPONINI 64.9* 109* 160* Recent Labs Lab 05/20/15 0615 WBC 7.67 HGB 8.7* HCT 27.8* MCV 84.9 PLT 207 PLAN: Aspirin 81 mg indefinitely. Clopidogrel 75 mg for one year. Switch to high intensity statins, atorvastatin 40 mg once a day. Follow-up with Dr. Collins as she lives in [place]. Referral to cardiac rehab as an outpatient. DISCHARGE MEDICATIONS: Medication List START taking these medications atorvastatin 40 MG tablet QTY: 90 tablet Refills: 3 Commonly known as: LIPITOR Take 1 tablet by mouth nightly. clopidogrel 75 MG tablet QTY: 90 tablet Refills: 3 Commonly known as: PLAVIX Take 1 tablet by mouth daily. metoprolol 25 MG tablet QTY: 180 tablet Refills: 3 Commonly known as: LOPRESSOR Take 1 tablet by mouth 2 (two) times daily. nitroGLYCERIN 0.4 MG SL tablet QTY: 90 tablet Refills: 12 Commonly known as: NITROSTAT Place 1 tablet under the tongue every 5 (five) minutes as needed for Chest pain. CONTINUE taking these medications aspirin 81 MG tablet Refills: 0 Calcium Citrate-Vitamin D 250-200 MG-UNIT Tabs Refills: 0 cholecalciferol 1000 UNITS tablet Refills: 0 Commonly known as: VITAMIN D-3 cyanocobalamin 1000 MCG tablet Refills: 0 Commonly known as: VITAMIN B-12 esomeprazole 40 MG capsule Refills: 0 Commonly known as: NEXIUM gabapentin 800 MG tablet Refills: 0 Commonly known as: NEURONTIN levothyroxine 112 MCG tablet Refills: 0 Commonly known as: SYNTHROID lisinopril 5 MG tablet Refills: 0 Commonly known as: ZESTRIL traMADol 50 MG tablet Refills: 0 Commonly known as: ULTRAM venlafaxine 25 MG tablet Refills: 0 Commonly known as: EFFEXOR STOP taking these medications simvastatin 10 MG tablet Commonly known as: ZOCOR Where to Get Your Medications These are the prescriptions that you need to crab picker. You may get the following medications from any pharmacy - atorvastatin 40 MG tablet - clopidogrel 75 MG tablet - metoprolol 25 MG tablet - nitroGLYCERIN 0.4 MG SL tablet Disposition: Home Condition: Stable Code Status: Full Code Discharge took 20 minutes, to include final examination, discussion of admission, and prepa ration of prescriptions, instructions for on-going care, follow-up and documentation of disc harge summary. Maxx Barker MD 05/21/2015 documented in this encount er Medications at Time of Discharge + + + +---------+ + + | Medication | Sig | Dispensed | Refills | Start | End Date | | | | | | Date | | + + + +---------+ + + | nitroglycerin | Place 0.4 mg under | | 0 | 05/21/19 | | | (NITROSTAT) 0.4 mg | the tongue as | | | 16 | | | SL tablet | needed. | | | | | + + + +---------+ + + | aspirin (ASPIRIN | Take 81 mg by mouth | | 0 | 05/19/19 | | | LOW DOSE) 81 MG | daily. | | | 16 | 0 | | tablet | | | | | | + + + +---------+ + + | cyanocobalamin | Take 1,000 mcg by | | 0 | 05/19/19 | | | (VITAMIN B-12) 1000 | mouth daily. | | | 16 | 0 | | MCG tablet | | | | | | + + + +---------+ + + | nitroglycerin | Place 1 tablet under | 90 | 12 | 05/21/19 | | | (NITROSTAT) 0.4 mg | the tongue every 5 | tablet | | 16 | 8 | | SL tablet | (five) minutes as | | | | | | | needed for Chest | | | | | | | pain. | | | | | + + + +---------+ + + documented as of this encounter Progress Notes Conversion Transaction, Provider Unknown - 05/21/2015 3:08 PM PSTFormatting of this note m ight be different from the original. Case Management by ANDREW Multani at 05/21/15 2909 Author: ANDREW Multani Service: (none) Author Type: Magistrate Judge Filed: 05/21/15 1509 Date of Service: 05/21/15 1508 Status: Signed Straight Edger: ANDREW Multani (Magistrate Judge) 05/21/15 1500 Discharge Planning Evaluation Admitting Diagnosis NSTEMI Anticipated Disposition Facility Type Home DEMAND GENERATOR MANAGER met with Leonie NORRIS Nurse, states no discharge needs or concerns at this time. DCP: Home MAKENZIE IMER, Lube Attendant [phone] onver joseph Transaction, Provider Unknown - 05/21/2015 10:57 AM PST Nurse Progress Note by Leonie Tapia RN at 05/21/15 1057 Author: Leonie Tapia RN Service: (none) Author Type: Registered Nurse Filed: 05/21/15 1058 Date of Service: 05/21/15 1057 Status: Signed Straight Edger: Leonie Tapia RN (Registered Nurse) D/c instructions completed by JULIAN Steinberg. Pt and family stated understanding to d/c paperwo rk, follow up and new prescriptions. onver joseph Transaction, Provider Unknown - 05/20/2015 1:47 PM PST Case Management by Cierra Caban RN at 05/20/15 1347 Author: Cierra Caban RN Service: (none) Author Type: Registered Nurse Filed: 05/20/15 1349 Date of Service: 05/20/15 1347 Status: Signed Straight Edger: Cierra Caban RN (Registered Nurse) 05/20/15 1342 Discharge Planning Evaluation Admitting Diagnosis NSTEMI Readmission No Living Arrangements Spouse/significant other Support Systems Spouse/significant other;Children Type of Residence Private residence House type House-1 story Independent with ADL's Yes Independent with Mobility Yes Home Care Services No Caregiver after Discharge Yes Caregiver Name Spouse Mental Status Oriented Anticipated Discharge Plan Post Acute Care Needs None at this time Anticipated Disposition Facility Type Home Met with: patient and discussed discharge planning, Pt is a 84 y.o., female who lives with spouse in [facility]. She is independent in all adl's and continues to drive. Patient's PCP is: ABY RODRÍGUEZ Patient's insurance: Medicare Coverage concerns: Medication coverage/concerns: Community resources utilized / needed: Assistance in transportation: Spouse to transport Identification of any specific education / training: Barriers to Discharge / Alternative housing needed: Anticipated DCP: home CIERRA CABAN RN onver joseph Transaction, Provider Unknown - 05/19/2015 6:10 PM PST Nurse Progress Note by Chapo Coles RN at 05/19/151809 Author: Chapo Coles RN Service: (none) Author Type: Registered Nurse Filed: 05/19/151811 Date of Service: 05/19/151809 Status: Signed Straight Edger: Chapo Coles RN (Registered Nurse) VSS, pt more comfortable. No further bleeding from R radial site. Dinner ordered. Pt still c/o low-grade CP, rating 4/10. Will Continue to monitor. ohnangelito kate, Damaris Levine RPH - 05/19/2015 5:22 PM PSTFormatting of this note might be different from t he original. Progress Notes by Damaris Ritter RPH at 05/19/151721 Author: Damaris Ritter RPH Service: (none) Author Type: Pharmacist Filed: 05/19/151721 Date of Service: 05/19/151721 Status: Signed Straight Edger: Damaris Ritter RPH (Pharmacist) Clinical Pharmacy Note - Renal Dose Adjustment Damir Alejandro 84 y.o. female Ht Readings from Last 1 Encounters: 05/19/15 1.626 m (5' 4") Wt Readings from Last 1 Encounters: 05/19/15 61.78 kg (136 lb 3.2 oz) CREATININE Date Value Ref Range Status 05/19/2015 1.5* 0.50 - 1.00 mg/dL Final Comment: Testing performed at [facility];[address] [place] [address];[place] [address] CREATININE: 1.5 mg/dL ABNORMAL (05/19/15 1205) Estimated creatinine clearance - 25 mL/min Pharmacy to renally adjust medications per Dr. Bo Plan: No medications will require renal dose adjustment based on patient's current estimate d Crcl. Pharmacy will continue to follow and adjust as appropriate. Pharmacist: Damaris Ritter 05/19/2015 5:22 PM onversandra n Transaction, Provider Unknown - 05/19/2015 5:04 PM PSTFormatting of this note might be di fferent from the original. Nurse Progress Note by Chapo Coles RN at 05/19/151703 Author: Chapo Coles RN Service: (none) Author Type: Registered Nurse Filed: 05/19/151707 Date of Service: 05/19/151703 Status: Signed Straight Edger: Chapo Coles RN (Registered Nurse) Pt arrived hypotensive from laborer general. Bolus of NS started, pt placed in trendelenberg and Dr Barker notified. Pt c/o CP, headache, shoulder pain and nausea. BP improved with bolus . At 1650, TR band site started bleeding. Pressure applied, and 3ml more air added to ballo on. Bleeding stopped. Pt taken out of trendelenberg, and PO medication given for pain. Pt appears more comfortable. RN and pts remain at bedside. Will continue to monitor. docume nted in this encounter Plan of Treatment +--------+---------+ + + + | Date | Type | Specialty | Care Team | Description | +--------+---------+ + + + | 11/07/ | Office | Nephrology | Maxx Buchanan MD | | | 2019 | Visit | | [address] [facility] | | | | | | [address] [place] | | | | | | [address] | | | | | | | | +--------+---------+ + + + | 01/17/ | Office | Cardiology | Brianna Stewart | | | 2019 | Visit | | [address] | | | | | | [address] | | | | | | [place] [address] | | | | | | [phone] | | | | | | | | +--------+---------+ + + + documented as of this encounter Procedures + +--------+ + + + | Procedure Name | Priori | Date/Time | Associated Diagnosis | Comments | | | ty | | | | + +--------+ + + + | TROPONIN I | Routin | 05/21/2015 | | Results for this | | | e | 4:37 AM | | procedure are in the | | | | PST | | results section. | + +--------+ + + + | CK-MB | Routin | 05/21/2015 | | Results for this | | | e | 4:37 AM | | procedure are in the | | | | PST | | results section. | + +--------+ + + + | CK TOTAL | Routin | 05/21/2015 | | Results for this | | | e | 4:37 AM | | procedure are in the | | | | PST | | results section. | + +--------+ + + + | ECHO COMPLETE | Routin | 05/20/2015 | | Results for this | | | e | 7:36 AM | | procedure are in the | | | | PST | | results section. | + +--------+ + + + | TROPONIN I | Routin | 05/20/2015 | | Results for this | | | e | 7:36 AM | | procedure are in the | | | | PST | | results section. | + +--------+ + + + | CK-MB | Routin | 05/20/2015 | | Results for this | | | e | 7:36 AM | | procedure are in the | | | | PST | | results section. | + +--------+ + + + | CK TOTAL | Routin | 05/20/2015 | | Results for this | | | e | 7:36 AM | | procedure are in the | | | | PST | | results section. | + +--------+ + + + | EXTERNAL LAB: CBC | Routin | 05/20/2015 | | Results for this | | | e | 6:15 AM | | procedure are in the | | | | PST | | results section. | + +--------+ + + + | PROTIME INR | Routin | 05/20/2015 | | Results for this | | | e | 6:15 AM | | procedure are in the | | | | PST | | results section. | + +--------+ + + + | ECG 12 LEAD | Routin | 05/20/2015 | | Results for this | | | e | 5:51 AM | | procedure are in the | | | | PST | | results section. | + +--------+ + + + | LIPID PANEL | Routin | 05/20/2015 | | Results for this | | | e | 5:50 AM | | procedure are in the | | | | PST | | results section. | + +--------+ + + + | PROTIME INR | Routin | 05/20/2015 | | Results for this | | | e | 5:50 AM | | procedure are in the | | | | PST | | results section. | + +--------+ + + + | PHOSPHORUS | Routin | 05/20/2015 | | Results for this | | | e | 5:50 AM | | procedure are in the | | | | PST | | results section. | + +--------+ + + + | MAGNESIUM | Routin | 05/20/2015 | | Results for this | | | e | 5:50 AM | | procedure are in the | | | | PST | | results section. | + +--------+ + + + | BASIC METABOLIC | Routin | 05/20/2015 | | Results for this | | PANEL | e | 5:50 AM | | procedure are in the | | | | PST | | results section. | + +--------+ + + + | TROPONIN I | Routin | 05/19/2015 | | Results for this | | | e | 11:47 PM | | procedure are in the | | | | PST | | results section. | + +--------+ + + + | CK-MB | Routin | 05/19/2015 | | Results for this | | | e | 11:47 PM | | procedure are in the | | | | PST | | results section. | + +--------+ + + + | CK TOTAL | Routin | 05/19/2015 | | Results for this | | | e | 11:47 PM | | procedure are in the | | | | PST | | results section. | + +--------+ + + + | TROPONIN I | Routin | 05/19/2015 | | Results for this | | | e | 5:41 PM | | procedure are in the | | | | PST | | results section. | + +--------+ + + + | CK-MB | Routin | 05/19/2015 | | Results for this | | | e | 5:41 PM | | procedure are in the | | | | PST | | results section. | + +--------+ + + + | CK TOTAL | Routin | 05/19/2015 | | Results for this | | | e | 5:41 PM | | procedure are in the | | | | PST | | results section. | + +--------+ + + + | ECG 12 LEAD | Routin | 05/19/2015 | | Results for this | | | e | 3:56 PM | | procedure are in the | | | | PST | | results section. | + +--------+ + + + | CV CARDIAC PROCEDURE | Routin | 05/19/2015 | | Results for this | | | e | 3:15 PM | | procedure are in the | | | | PST | | results section. | + +--------+ + + + | CV CARDIAC PROCEDURE | Routin | 05/19/2015 | | Results for this | | | e | 3:15 PM | | procedure are in the | | | | PST | | results section. | + +--------+ + + + | ACTIVATED CLOTTING | Routin | 05/19/2015 | | Results for this | | TIME | e | 2:58 PM | | procedure are in the | | | | PST | | results section. | + +--------+ + + + | ACTIVATED CLOTTING | Routin | 05/19/2015 | | Results for this | | TIME | e | 2:15 PM | | procedure are in the | | | | PST | | results section. | + +--------+ + + + | XR CHEST 1 VIEW | Routin | 05/19/2015 | | Results for this | | | e | 1:13 PM | | procedure are in the | | | | PST | | results section. | + +--------+ + + + | PTT | Routin | 05/19/2015 | | Results for this | | | e | 12:05 PM | | procedure are in the | | | | PST | | results section. | + +--------+ + + + | PROTIME INR | Routin | 05/19/2015 | | Results for this | | | e | 12:05 PM | | procedure are in the | | | | PST | | results section. | + +--------+ + + + | BASIC METABOLIC | Routin | 05/19/2015 | | Results for this | | PANEL | e | 12:05 PM | | procedure are in the | | | | PST | | results section. | + +--------+ + + + | ECG 12 LEAD | Routin | 05/19/2015 | | Results for this | | | e | 11:48 AM | | procedure are in the | | | | PST | | results section. | + +--------+ + + + | XR CHEST 1 VIEW | Routin | 05/19/2015 | | Results for this | | | e | 12:48 AM | | procedure are in the | | | | PST | | results section. | + +--------+ + + + documented in this encounter Results CK-MB (05/21/2015 4:37 AM PST) + + + + + -+ | Component | Value | Ref Range | Performed | Pathologist | | | | | At | Signature | + + + + + -+ | CK-MB | 52.1 (H)Comment: Testing | 0.5 - 3.6 ng/mL | EXTERNAL | | | | performed at [facility];[address] | | LAB | | | | [address];[place], [place] | | | | | | [address] | | | | + + + + + -+ | CK-MB Index | 8.0Comment: CK INDEX | | EXTERNAL | | | | INTERPRETATION: | | LAB | | | | MMB ng/mL | | | | | | | | | | | |CK INDEX INTERPRETATION: | | | | | | MMB ng/mL | | | | | | | | | | + + + + + -+ + + | Specimen | + + | Blood specimen | | (specimen) | + + + +---------+ + + | Performing | Address | City/State/Zipcode | Phone Number | | Organization | | | | + +---------+ + + | EXTERNAL LAB | | | | + +---------+ + + Troponin I (05/21/2015 4:37 AM PST) + + + + + + | Component | Value | Ref Range | Performed | Pathologist | | | | | At | Signature | + + + + + + | Troponin I, | 64.9 ()Comment: 0.00 | 0.00 - 0.10 | EXTERNAL | | | Qual | to 0.10 CONSISTENT | ng/mL | LAB | | | | WITH NORMAL | | | | | | POPULATION0.11 to 0.60 | | | | | | CONSISTENT WITH | | | | | | INCREASED RISK FOR | | | | | | ADVERSE OUTCOMES> 0.60 | | | | | | CONSISTENT | | | | | | WITH WHO CRITERIA FOR | | | | | | ACUTE UT CKTRP PHONED TO | | | | | | 4RP REINIER Chan AT 0625 BY | | | | | | LJREAD BACK RESULTS | | | | | | VERIFIEDTesting | | | | | | performed at [facility];[address] | | | | | | [address] [facility];[place], [place] | | | | | | [address] | | | | + + + + + + + + | Specimen | + + | Blood specimen | | (specimen) | + + + +---------+ + + | Performing | Address | City/State/Zipcode | Phone Number | | Organization | | | | + +---------+ + + | EXTERNAL LAB | | | | + +---------+ + + CK Total (05/21/2015 4:37 AM PST) + + + + + + | Component | Value | Ref Range | Performed | Pathologist | | | | | At | Signature | + + + + + + | CK, Total | 651 (H)Comment: Testing | 30 - 240 U/L | EXTERNAL | | | | performed at [facility];[address] | | LAB | | | | [address];[place] | | | | | | [address] | | | | + + + + + + + + | Specimen | + + | Blood specimen | | (specimen) | + + + +---------+ + + | Performing | Address | City/State/Zipcode | Phone Number | | Organization | | | | + +---------+ + + | EXTERNAL LAB | | | | + +---------+ + + CK-MB (05/20/2015 7:36 AM PST) + + + + + -+ | Component | Value | Ref Range | Performed | Pathologist | | | | | At | Signature | + + + + + -+ | CK-MB | 265.3 (H)Comment: | 0.5 - 3.6 ng/mL | EXTERNAL | | | | Testing performed at | | LAB | | | | [facility];[address] [place] [address] | | | | | | [address];[place] [address] | | | | + + + + + -+ | CK-MB Index | 17.5Comment: CK INDEX | | EXTERNAL | | | | INTERPRETATION: | | LAB | | | | MMB ng/mL | | | | | | | | | | | |CK INDEX INTERPRETATION: | | | | | | MMB ng/mL | | | | | | | | | | + + + + + -+ + + | Specimen | + + | | + + + +---------+ + + | Performing | Address | City/State/Zipcode | Phone Number | | Organization | | | | + +---------+ + + | EXTERNAL LAB | | | | + +---------+ + + Troponin I (05/20/2015 7:36 AM PST) + + + + + + | Component | Value | Ref Range | Performed | Pathologist | | | | | At | Signature | + + + + + + | Troponin I, | 109 ()Comment: 0.00 | 0.00 - 0.10 | EXTERNAL | | | Qual | to 0.10 CONSISTENT | ng/mL | LAB | | | | WITH NORMAL | | | | | | POPULATION0.11 to 0.60 | | | | | | CONSISTENT WITH | | | | | | INCREASED RISK FOR | | | | | | ADVERSE OUTCOMES> 0.60 | | | | | | CONSISTENT | | | | | | WITH WHO CRITERIA FOR | | | | | | ACUTE UT CALLED NURSING | | | | | | JENNIFER TARIQ AT | | | | | | 09:17 BY EW READ BACK | | | | | | RESULTS VERIFIEDTesting | | | | | | performed at [facility];[address] | | | | | | [address];[place] | | | | | | [address] | | | | + + + + + + + + | Specimen | + + | | + + + +---------+ + + | Performing | Address | City/State/Zipcode | Phone Number | | Organization | | | | + +---------+ + + | EXTERNAL LAB | | | | + +---------+ + + CK Total (05/20/2015 7:36 AM PST) + + + + + + | Component | Value | Ref Range | Performed | Pathologist | | | | | At | Signature | + + + + + + | CK, Total | 1513 (H)Comment: Testing | 30 - 240 U/L | EXTERNAL | | | | performed at [facility];[address] | | LAB | | | | [address];[place] | | | | | | [address] | | | | + + + + + + + + | Specimen | + + | | + + + +---------+ + + | Performing | Address | City/State/Zipcode | Phone Number | | Organization | | | | + +---------+ + + | EXTERNAL LAB | | | | + +---------+ + + ECHO Complete (05/20/2015 7:36 AM PST) + + | Specimen | + + | | + + + + + | Impressions | Performed At | + + + | 1. Overall left ventricular systolic function is normal with, an EF | | | between 60 - 65 %. 2. Pseudonormal LV diastolic filling pattern, | | | consistent with elevated LA pressure and moderate dysfunction (Grade | | | II). 3. Severe hypokinesia of the basal inferior wall. | | + + + + + + | Narrative | Performed At | + + + | Patient Name: DAMIR ALEJANDRO Date of : 1930 | | | Performing Physician: Maxx Barker MD | | | | | | ------REPORT ADDENDED------ INDICATIONS Acute UT / Wall | | | motion abnormailty CONCLUSIONS 1. Overall left | | | ventricular systolic function is normal with, an EF between 60 - 65 %. | | | 2. Pseudonormal LV diastolic filling pattern, consistent with | | | elevated LA pressure and moderate dysfunction (Grade II). 3. Severe | | | hypokinesia of the basal inferior wall. FINDINGS -------- ECG | | | rhythm: Sinus rhythm. Study: A 2-dimensional transthoracic | | | echocardiogram with m-mode, spectral and color flow Doppler was | | | perfomed. Study: This was a technically adequate study. Left | | | Ventricle: Overall left ventricular systolic function is normal with, | | | an EF between 60 - 65 %. Left Ventricle: The left ventricle cavity | | | size is normal. Left Ventricle: Left ventricular wall thickness is | | | normal. Left Ventricle: Pseudonormal LV diastolic filling pattern, | | | consistent with elevated LA pressure and moderate dysfunction (Grade | | | II). Left Ventricle: Severe hypokinesia of the basal inferior wall. | | | Right Ventricle: The right ventricle is normal in size. Left Atrium: | | | The left atrium is normal in size. Right Atrium: The right atrium is | | | normal in size. Aortic Valve: Aortic valve is trileaflet and is | | | mildly thickened. Aortic Valve: There is mild aortic valve sclerosis | | | without stenosis. Aortic Valve: There is no evidence of aortic | | | regurgitation. Mitral Valve: There is trace mitral regurgitation. | | | Mitral Valve: Mild mitral annular calcification present. Mitral | | | Valve: There is mild thickening and calcification of the mitral valve | | | leaflets. Tricuspid Valve: The tricuspid valve appears structurally | | | normal. Tricuspid Valve: Trace tricuspid regurgitation present. | | | Tricuspid Valve: Pulmonary artery systolic pressure could not be | | | assessed due to the absence of adequate TR jet. Pulmonic Valve: The | | | pulmonic valve was not well visualized. Pulmonic Valve: Trace | | | pulmonic regurgitation. Pericardium: There is a small pericardial | | | effusion is located near the right ventricle. IVC/Hepatic Veins: The | | | IVC is small (<1.5cm) and collapses with sniff, consistent with | | | central venous pressures of 0-5mmHg. Aorta: The aortic root, | | | ascending aorta are normal. Pulmonary Veins: The flow patterns, | | | measured by Doppler, appear normal. MEASUREMENTS | | | IVC: 1.08 cm LA Major: 4.07 cm EDV(Teich): 101.58 ml IVSd: | | | 1.00 cm LVIDd: 4.68 cm LVPWd: 1.10 cm LVOT Diam: 2.12 | | | cm %FS: 31.01 % EF(Teich): 58.69 % ESV(Teich): 41.95 ml | | | IVSs: 1.15 cm LVIDs: 3.23 cm LVPWs: 1.80 cm SV(Teich): | | | 59.62 ml RA Major: 4.04 cm RVIDd: 2.73 cm LVEF MOD A2C: | | | 64.40 % SV MOD A2C: 27.82 ml LVEF MOD A4C: 59.68 % SV MOD | | | A4C: 24.17 ml EF Biplane: 61.40 % LVEDV MOD BP: 41.70 ml | | | LVESV MOD BP: 16.09 ml LVEDV MOD A2C: 43.20 ml LVLd A2C: | | | 6.09 cm LVEDV MOD A4C: 40.51 ml LVLd A4C: 6.07 cm LVESV MOD | | | A2C: 15.37 ml LVLs A2C: 4.69 cm LVESV MOD A4C: 16.33 ml | | | LVLs A4C: 4.95 cm LAESV(A-L): 37.60 ml LAESV Index (A-L): | | | 26.86 ml/m2 LAAs A2C: 14.91 cm2 LAESV A-L A2C: 42.94 ml LALs | | | A2C: 4.39 cm LAAs A4C: 13.05 cm2 LAESV A-L A4C: 31.55 ml | | | LALs A4C: 4.58 cm Ao Diam: 2.56 cm AV Cusp: 1.69 cm LA | | | Diam: 2.65 cm LA/Ao: 1.03 %FS: 33.33 % EDV(Teich): | | | 118.84 ml EF(Teich): 61.74 % ESV(Teich): 45.45 ml IVSd: | | | 1.09 cm IVSs: 1.73 cm LVIDd: 5.01 cm LVIDs: 3.34 cm | | | LVPWd: 0.85 cm LVPWs: 1.33 cm SV(Teich): 73.38 ml HR: | | | 67.20 BPM AV maxP.82 mmHg AV meanP.57 mmHg AV Vmax: | | | 1.71 m/s AV Vmean: 1.09 m/s AV VTI: 36.79 cm ROSIE Vmax: | | | 2.19 cm2 ROSIE (VTI): 2.30 cm2 LVCI Dopp: 4.35 l/minm2 LVCO | | | Dopp: 6.09 l/min HR: 71.65 BPM LVOT maxP.52 mmHg LVOT | | | meanP.13 mmHg LVSI Dopp: 60.71 ml/m2 LVSV Dopp: 85.00 | | | ml LVOT Vmax: 1.06 m/s LVOT Vmean: 0.67 m/s LVOT VTI: | | | 23.91 cm MV A Zack: 0.81 m/s MV DecT: 215.36 ms MV E Zack: | | | 0.99 m/s MV E/A Ratio: 1.21 MV PHT: 63.08 ms MVA By PHT: | | | 3.48 cm2 MV A Dur: 124.56 ms Septal e': 0.07 m/s Septal E/e': | | | 12.74 Lateral e': 0.08 m/s Lateral E/e': 11.33 P Vein A: | | | 0.43 m/s P Vein A Dur: 114.18 ms P Vein D: 0.39 m/s P Vein | | | S/D Ratio: 2.09 P Vein S: 0.82 m/s TV A Zack: 0.45 m/s TV | | | Dec [place]: 2.68 m/s2 TV Dec Time: 257.33 ms TV E Zack: 0.69 | | | m/s TV E/A Ratio: 1.50 Retail Bakery Manager: Authenticated by: Maxx | | | Malini DONOHUE Report Date/Time: 05-21-2015 09:31:01 | | + + + + + | Procedure Note | + + | Rogers Haddad - 11/10/2018 5:37 PM PDT Patient Name: ROGERS ALEJANDROEli of | | : 1930 Performing Physician: Maxx Barker | | MD ------REPORT | | ADDENDED------INDICATIONS Acute UT / Wall motion abnormailty | | CONCLUSIONS 1. Overall left ventricular systolic function is normal with, an | | EF between 60 - 65 %.2. Pseudonormal LV diastolic filling pattern, consistent with | | elevated LA pressure and moderate dysfunction (Grade II).3. Severe hypokinesia of the | | basal inferior wall. FINDINGS--------ECG rhythm: Sinus rhythm.Study: A 2-dimensional | | transthoracic echocardiogram with m-mode, spectral and color flow Doppler was | | perfomed.Study: This was a technically adequate study.Left Ventricle: Overall left | | ventricular systolic function is normal with, an EF between 60 - 65 %.Left Ventricle: | | The left ventricle cavity size is normal.Left Ventricle: Left ventricular wall thickness | | is normal.Left Ventricle: Pseudonormal LV diastolic filling pattern, consistent with | | elevated LA pressure and moderate dysfunction (Grade II).Left Ventricle: Severe | | hypokinesia of the basal inferior wall.Right Ventricle: The right ventricle is normal in | | size.Left Atrium: The left atrium is normal in size.Right Atrium: The right atrium is | | normal in size.Aortic Valve: Aortic valve is trileaflet and is mildly thickened.Aortic | | Valve: There is mild aortic valve sclerosis without stenosis.Aortic Valve: There is no | | evidence of aortic regurgitation.Mitral Valve: There is trace mitral | | regurgitation.Mitral Valve: Mild mitral annular calcification present.Mitral Valve: | | There is mild thickening and calcification of the mitral valve leaflets.Tricuspid Valve: | | The tricuspid valve appears structurally normal.Tricuspid Valve: Trace tricuspid | | regurgitation present.Tricuspid Valve: Pulmonary artery systolic pressure could not be | | assessed due to the absence of adequate TR jet.Pulmonic Valve: The pulmonic valve was | | not well visualized.Pulmonic Valve: Trace pulmonic regurgitation.Pericardium: There is | | a small pericardial effusion is located near the right ventricle.IVC/Hepatic Veins: The | | IVC is small (<1.5cm) and collapses with sniff, consistent with central venous pressures | | of 0-5mmHg.Aorta: The aortic root, ascending aorta are normal.Pulmonary Veins: The flow | | patterns, measured by Doppler, appear normal. MEASUREMENTS IVC: 1.08 cmLA | | Major: 4.07 cmEDV(Teich): 101.58 mlIVSd: 1.00 cmLVIDd: 4.68 cmLVPWd: 1.10 | | cmLVOT Diam: 2.12 cm%FS: 31.01 %EF(Teich): 58.69 %ESV(Teich): 41.95 mlIVSs: | | 1.15 cmLVIDs: 3.23 cmLVPWs: 1.80 cmSV(Teich): 59.62 mlRA Major: 4.04 cmRVIDd: | | 2.73 cmLVEF MOD A2C: 64.40 %SV MOD A2C: 27.82 mlLVEF MOD A4C: 59.68 %SV MOD A4C: | | 24.17 mlEF Biplane: 61.40 %LVEDV MOD BP: 41.70 mlLVESV MOD BP: 16.09 mlLVEDV MOD | | A2C: 43.20 mlLVLd A2C: 6.09 cmLVEDV MOD A4C: 40.51 mlLVLd A4C: 6.07 cmLVESV MOD | | A2C: 15.37 mlLVLs A2C: 4.69 cmLVESV MOD A4C: 16.33 mlLVLs A4C: 4.95 | | cmLAESV(A-L): 37.60 mlLAESV Index (A-L): 26.86 ml/m2LAAs A2C: 14.91 [id number] A-L | | A2C: 42.94 mlLALs A2C: 4.39 cmLAAs A4C: 13.05 [id number] A-L A4C: 31.55 mlLALs | | A4C: 4.58 cmAo Diam: 2.56 cmAV Cusp: 1.69 cmLA Diam: 2.65 cmLA/Ao: 1.03%FS: | | 33.33 %EDV(Teich): 118.84 mlEF(Teich): 61.74 %ESV(Teich): 45.45 mlIVSd: 1.09 | | cmIVSs: 1.73 cmLVIDd: 5.01 cmLVIDs: 3.34 cmLVPWd: 0.85 cmLVPWs: 1.33 | | cmSV(Teich): 73.38 mlHR: 67.20 BPMAV maxP.82 mmHgAV meanP.57 mmHgAV | | Vmax: 1.71 m/Damaris Vmean: 1.09 m/Damaris VTI: 36.79 cmAVA Vmax: 2.19 cm2AVA (VTI): | | 2.30 [id number] Dopp: 4.35 l/[id number] Dopp: 6.09 l/minHR: 71.65 BPMLVOT maxPG: | | 4.52 mmHgLVOT meanP.13 mmHgLVSI Dopp: 60.71 ml/m2LVSV Dopp: 85.00 mlLVOT Vmax: | | 1.06 m/sLVOT Vmean: 0.67 m/sLVOT VTI: 23.91 cmMV A Zack: 0.81 m/sMV DecT: | | 215.36 msMV E Zack: 0.99 m/sMV E/A Ratio: 1.21MV PHT: 63.08 msMVA By PHT: 3.48 | | cm2MV A Dur: 124.56 msSeptal e': 0.07 m/sSeptal E/e': 12.74Lateral e': 0.08 | | m/sLateral E/e': 11.33P Vein A: 0.43 m/sP Vein A Dur: 114.18 msP Vein D: 0.39 | | m/sP Vein S/D Ratio: 2.09P Vein S: 0.82 m/sTV A Zack: 0.45 m/sTV Dec [place]: 2.68 | | m/s2TV Dec Time: 257.33 msTV E Zack: 0.69 m/sTV E/A Ratio: 1.50 Retail Bakery Manager: | | ASAuthenticated by: Maxx Ordazqaisi MDReport Date/Time: 05-21-2015 09:31:01 IMPRESSION: 1. | | Overall left ventricular systolic function is normal with, an EF between 60 - 65 %.2. | | Pseudonormal LV diastolic filling pattern, consistent with elevated LA pressure and | | moderate dysfunction (Grade II).3. Severe hypokinesia of the basal inferior wall. | |LVIDd: 4.68 cm | |LVPWd: 1.10 cm | |LVOT Diam: 2.12 cm | |%FS: 31.01 % | |EF(Teich): 58.69 % | |ESV(Teich): 41.95 ml | |IVSs: 1.15 cm | |LVIDs: 3.23 cm | |LVPWs: 1.80 cm | |SV(Teich): 59.62 ml | |RA Major: 4.04 cm | |RVIDd: 2.73 cm | |LVEF MOD A2C: 64.40 % | |SV MOD A2C: 27.82 ml | |LVEF MOD A4C: 59.68 % | |SV MOD A4C: 24.17 ml | |EF Biplane: 61.40 % | |LVEDV MOD BP: 41.70 ml | |LVESV MOD BP: 16.09 ml | |LVEDV MOD A2C: 43.20 ml | |LVLd A2C: 6.09 cm | |LVEDV MOD A4C: 40.51 ml | |LVLd A4C: 6.07 cm | |LVESV MOD A2C: 15.37 ml | |LVLs A2C: 4.69 cm | |LVESV MOD A4C: 16.33 ml | |LVLs A4C: 4.95 cm | |LAESV(A-L): 37.60 ml | |LAESV Index (A-L): 26.86 ml/m2 | |LAAs A2C: 14.91 cm2 | |LAESV A-L A2C: 42.94 ml | |LALs A2C: 4.39 cm | |LAAs A4C: 13.05 cm2 | |LAESV A-L A4C: 31.55 ml | |LALs A4C: 4.58 cm | |Ao Diam: 2.56 cm | |AV Cusp: 1.69 cm | |LA Diam: 2.65 cm | |LA/Ao: 1.03 | |%FS: 33.33 % | |EDV(Teich): 118.84 ml | |EF(Teich): 61.74 % | |ESV(Teich): 45.45 ml | |IVSd: 1.09 cm | |IVSs: 1.73 cm | |LVIDd: 5.01 cm | |LVIDs: 3.34 cm | |LVPWd: 0.85 cm | |LVPWs: 1.33 cm | |SV(Teich): 73.38 ml | |HR: 67.20 BPM | |AV maxP.82 mmHg | |AV meanP.57 mmHg | |AV Vmax: 1.71 m/s | |AV Vmean: 1.09 m/s | |AV VTI: 36.79 cm | |ROSIE Vmax: 2.19 cm2 | |ROSIE (VTI): 2.30 cm2 | |LVCI Dopp: 4.35 l/minm2 | |LVCO Dopp: 6.09 l/min | |HR: 71.65 BPM | |LVOT maxP.52 mmHg | |LVOT meanP.13 mmHg | |LVSI Dopp: 60.71 ml/m2 | |LVSV Dopp: 85.00 ml | |LVOT Vmax: 1.06 m/s | |LVOT Vmean: 0.67 m/s | |LVOT VTI: 23.91 cm | |MV A Zack: 0.81 m/s | |MV DecT: 215.36 ms | |MV E Zack: 0.99 m/s | |MV E/A Ratio: 1.21 | |MV PHT: 63.08 ms | |MVA By PHT: 3.48 cm2 | |MV A Dur: 124.56 ms | |Septal e': 0.07 m/s | |Septal E/e': 12.74 | |Lateral e': 0.08 m/s | |Lateral E/e': 11.33 | |P Vein A: 0.43 m/s | |P Vein A Dur: 114.18 ms | |P Vein D: 0.39 m/s | |P Vein S/D Ratio: 2.09 | |P Vein S: 0.82 m/s | |TV A Zack: 0.45 m/s | |TV Dec [place]: 2.68 m/s2 | |TV Dec Time: 257.33 ms | |TV E Zack: 0.69 m/s | |TV E/A Ratio: 1.50 | | | |Retail Bakery Manager: | |Authenticated by: Maxx Barker MD | |Report Date/Time: 05-21-2015 09:31:01 | | | |IMPRESSION: | |1. Overall left ventricular systolic function is normal with, an EF between 60 - 65 %. | |2. Pseudonormal LV diastolic filling pattern, consistent with elevated LA pressure and mode rate dysfunction (Grade II). | |3. Severe hypokinesia of the basal inferior wall. | + + Protime INR (05/20/2015 6:15 AM PST) + + + + + + | Component | Value | Ref Range | Performed | Pathologist | | | | | At | Signature | + + + + + + | INR | 1.0Comment: REFERENCE | | EXTERNAL | | | | RANGE:0.9 - 1.2 | | LAB | | | | NON-ANTICOAGULATED2.0 | | | | | | - 3.0 ALL OTHER | | | | | | THERAPEUTIC | | | | | | INDICATIONS2.5 - 3.5 | | | | | | MECHANICAL HEART VALVES, | | | | | | RECURRENT OR SYSTEMIC | | | | | | EMBOLISMTesting | | | | | | performed at [facility];[address] | | | | | | [address];[place], [place] | | | | | | [address] | | | | + + + + + + + + | Specimen | + + | | + + + +---------+ + + | Performing | Address | City/State/Zipcode | Phone Number | | Organization | | | | + +---------+ + + | EXTERNAL LAB | | | | + +---------+ + + External Lab: CBC (05/20/2015 6:15 AM PST) + + + + + + | Component | Value | Ref Range | Performed | Pathologist | | | | | At | Signature | + + + + + + | WBC | 7.67Comment: Testing | 3.80 - 11.00 | EXTERNAL | | | | performed at [facility];[address] | K/uL | LAB | | | | [address];[place] | | | | | | [address] | | | | + + + + + + | Red Blood | 3.27 (L)Comment: Testing | 3.70 - 5.10 | EXTERNAL | | | Cells | performed at [facility];[address] | M/uL | LAB | | | Counted | [address];[place] | | | | | | [address] | | | | + + + + + + | Hemoglobin | 8.7 (L)Comment: Testing | 11.3 - 15.5 | EXTERNAL | | | | performed at [facility];[address] | g/dL | LAB | | | | [address];[place] | | | | | | [address] | | | | + + + + + + | Hematocrit, | 27.8 (L)Comment: Testing | 34.0 - 46.0 % | EXTERNAL | | | POC | performed at [facility];[address] | | LAB | | | | [address];[place] | | | | | | [address] | | | | + + + + + + | MCV | 84.9Comment: Testing | 80.0 - 100.0 fl | EXTERNAL | | | | performed at [facility];[address] | | LAB | | | | [address];[place] | | | | | | [address] | | | | + + + + + + | MCH | 26.7 (L)Comment: Testing | 27.0 - 34.0 pg | EXTERNAL | | | | performed at [facility];[address] | | LAB | | | | [address];[place] | | | | | | [address] | | | | + + + + + + | MCHC | 31.5 (L)Comment: Testing | 32.0 - 35.5 | EXTERNAL | | | | performed at [facility];[address] | g/dL | LAB | | | | [address];[place] | | | | | | [address] | | | | + + + + + + | RDW-CV | 46.8Comment: Testing | 37 - 53 fl | EXTERNAL | | | | performed at [facility];[address] | | LAB | | | | [address];[place] | | | | | | [address] | | | | + + + + + + | Platelet | 207Comment: Testing | 150 - 400 K/uL | EXTERNAL | | | Count | performed at [facility];[address] | | LAB | | | Plasma | [address];[place] | | | | | | [address] | | | | + + + + + + | MPV | 8.1Comment: Testing | fl | EXTERNAL | | | | performed at [facility];[address] | | LAB | | | | [address];[place] | | | | | | [address] | | | | + + + + + + | Differentia | AUTOMATEDComment: | | EXTERNAL | | | l Type | Testing performed at | | LAB | | | | [facility];[address];[place] [address] | | | | + + + + + + | % Segmented | 73.07Comment: Testing | % | EXTERNAL | | | | performed at [facility];[address] | | LAB | | | Neutrophils | [address];[place] | | | | | | [address] | | | | + + + + + + | % | 15.96Comment: Testing | % | EXTERNAL | | | Lymphocytes | performed at [facility];[address] | | LAB | | | | [address];[place] | | | | | | [address] | | | | + + + + + + | % Monocytes | 9.56Comment: Testing | % | EXTERNAL | | | | performed at [facility];[address] | | LAB | | | | [address];[place] | | | | | | [address] | | | | + + + + + + | % | 1.00Comment: Testing | % | EXTERNAL | | | Eosinophils | performed at [facility];[address] | | LAB | | | | [address];[place] | | | | | | [address] | | | | + + + + + + | % Basophils | 0.41Comment: Testing | % | EXTERNAL | | | | performed at [facility];[address] | | LAB | | | | [address];[place] | | | | | | [address] | | | | + + + + + + | Absolute | 5.60Comment: Testing | 1.90 - 7.40 | EXTERNAL | | | Segmented | performed at [facility];[address] | K/uL | LAB | | | Neutrophils | [address];[place] | | | | | | [address] | | | | + + + + + + | Absolute | 1.22Comment: Testing | 1.00 - 3.90 | EXTERNAL | | | Lymphocytes | performed at [facility];[address] | K/uL | LAB | | | | [address];[place] | | | | | | [address] | | | | + + + + + + | Absolute | 0.73Comment: Testing | 0.00 - 0.80 | EXTERNAL | | | Monocytes | performed at [facility];[address] | K/uL | LAB | | | | [address];[place] | | | | | | [address] | | | | + + + + + + | Absolute | 0.08Comment: Testing | 0.00 - 0.50 | EXTERNAL | | | Eosinophils | performed at [facility];[address] | K/uL | LAB | | | | [address];[place] | | | | | | [address] | | | | + + + + + + | Absolute | 0.03Comment: Testing | 0.00 - 0.10 | EXTERNAL | | | Basophils | performed at [facility];[address] | K/uL | LAB | | | | [address];[place], [place] | | | | | | [address] | | | | + + + + + + + + | Specimen | + + | | + + + +---------+ + + | Performing | Address | City/State/Zipcode | Phone Number | | Organization | | | | + +---------+ + + | EXTERNAL LAB | | | | + +---------+ + + ECG 12 lead (05/20/2015 5:51 AM PST) + + + + + + | Component | Value | Ref Range | Performed | Pathologist | | | | | At | Signature | + + + + + + | DIAGNOSIS: | Normal sinus rhythmST & | | EXTERNAL | | | | T wave abnormality, | | LAB | | | | consider inferior | | | | | | ischemiaAbnormal ECGWhen | | | | | | compared with ECG of | | | | | | 19-MAY-2015 15:56,T wave | | | | | | inversion no longer | | | | | | evident in Anterior | | | | | | leadsConfirmed by | | | | | | KAROLINE LOWERY ([id number]) on | | | | | | 05/20/2015 2:58:02 PM | | | | + + + + + + + + | Specimen | + + | | + + + + + | Narrative | Performed At | + + + | Historically converted procedure from [facility] environment | EXTERNAL LAB | + + + + +---------+ + + | Performing | Address | City/State/Zipcode | Phone Number | | Organization | | | | + +---------+ + + | EXTERNAL LAB | | | | + +---------+ + + Fawad BARNES (05/20/2015 5:50 AM PST) + + + + + + | Component | Value | Ref Range | Performed | Pathologist | | | | | At | Signature | + + + + + + | INR | SPECIMEN CLOTTED, SAMPLE | | EXTERNAL | | | | TO BE REDRAWNComment: | | LAB | | | | LAB WILL RECOLLECTPHONED | | | | | | 4RP REINIER M AT 0620 | | | | | | LJTesting performed at | | | | | | [facility];[address] | | | | | | [facility];[place], [place] | | | | | | [id number] ON 05/20 | | | | | | AT 0618: PREVIOUSLY | | | | | | REPORTED 1.1 | | | | | | REFERENCE RANGE: 0.9 | | | | | | 1.2 NON ANTICOAGULATED | | | | | | 2.0 3.0 ALL OTHER | | | | | | THERAPEUTIC INDICATIONS | | | | | | 2.5 3.5 MECHANICAL | | | | | | HEART VALVES, RECURRENT | | | | | | OR SYSTEMIC EMBOLISM | | | | + + + + + + + + | Specimen | + + | Blood specimen | | (specimen) | + + + +---------+ + + | Performing | Address | City/State/Zipcode | Phone Number | | Organization | | | | + +---------+ + + | EXTERNAL LAB | | | | + +---------+ + + Phosphorus (05/20/2015 5:50 AM PST) + + + + + + | Component | Value | Ref Range | Performed | Pathologist | | | | | At | Signature | + + + + + + | PHOSPHORUS | 2.5Comment: Testing | 2.3 - 4.8 mg/dL | EXTERNAL | | | | performed at [facility];[address] | | LAB | | | | [address];[place], [place] | | | | | | [address] | | | | + + + + + + + + | Specimen | + + | Blood specimen | | (specimen) | + + + +---------+ + + | Performing | Address | City/State/Zipcode | Phone Number | | Organization | | | | + +---------+ + + | EXTERNAL LAB | | | | + +---------+ + + Magnesium (05/20/2015 5:50 AM PST) + + + + + + | Component | Value | Ref Range | Performed | Pathologist | | | | | At | Signature | + + + + + + | Magnesium | 2.0Comment: Testing | 1.7 - 2.4 mg/dL | EXTERNAL | | | | performed at [facility] | | LAB | | | | [address];[place], [place] | | | | | | [address] | | | | + + + + + + + + | Specimen | + + | Blood specimen | | (specimen) | + + + +---------+ + + | Performing | Address | City/State/Zipcode | Phone Number | | Organization | | | | + +---------+ + + | EXTERNAL LAB | | | | + +---------+ + + Lipid Panel (05/20/2015 5:50 AM PST) + + + + + + | Component | Value | Ref Range | Performed | Pathologist | | | | | At | Signature | + + + + + + | Cholesterol | 139Comment: Testing | mg/dL | EXTERNAL | | | | performed at [facility], [address] | | LAB | | | | [address], | | | | | | [place] [address] | | | | + + + + + + | Triglycerid | 216 (H)Comment: Testing | mg/dL | EXTERNAL | | | es | performed at [facility], [address] | | LAB | | | | [address], | | | | | | [place] [address] | | | | + + + + + + | HDL | 37 (L)Comment: Testing | mg/dL | EXTERNAL | | | | performed at [facility], [address] | | LAB | | | [address], | | | | | | [place] [address] | | | | + + + + + + | LDL, | 59Comment: Testing | mg/dL | EXTERNAL | | | Calculated | performed at [facility], [address] | | LAB | | | | [address], | | | | | | [place] [address] | | | | + + + + + + + + | Specimen | + + | Blood specimen | | (specimen) | + + + +---------+ + + | Performing | Address | City/State/Zipcode | Phone Number | | Organization | | | | + +---------+ + + | EXTERNAL LAB | | | | + +---------+ + + Basic Metabolic Panel (05/20/2015 5:50 AM PST) + + + + + + | Component | Value | Ref Range | Performed | Pathologist | | | | | At | Signature | + + + + + + | Na | 143Comment: Testing | 135 - 143 | EXTERNAL | | | | performed at [facility];[address] | mmol/L | LAB | | | | [address];[place] | | | | | | [address] | | | | + + + + + + | K | 4.3Comment: Testing | 3.5 - 4.9 | EXTERNAL | | | | performed at [facility];[address] | mmol/L | LAB | | | | [address];[place] | | | | | | [address] | | | | + + + + + + | Cl | 113 (H)Comment: Testing | 99 - 109 mmol/L | EXTERNAL | | | | performed at [facility];[address] | | LAB | | | | [address];[place] | | | | | | [address] | | | | + + + + + + | CO2 | 24Comment: Testing | 23 - 32 mmol/L | EXTERNAL | | | | performed at [facility];[address] | | LAB | | | | [address];[place] | | | | | | [address] | | | | + + + + + + | Anion Gap | 10Comment: Testing | 5 - 20 mmol/L | EXTERNAL | | | | performed at [facility];[address] | | LAB | | | | [address];[place] | | | | | | [address] | | | | + + + + + + | Glucose, | 85Comment: Testing | 65 - 99 mg/dL | EXTERNAL | | | Fasting | performed at [facility];[address] | | LAB | | | | [address];[place] | | | | | | [address] | | | | + + + + + + | BUN | 19Comment: Testing | 8 - 25 mg/dL | EXTERNAL | | | | performed at [facility];[address] | | LAB | | | | [address];[place] | | | | | | [address] | | | | + + + + + + | Creatinine | 1.2 (H)Comment: Testing | 0.50 - 1.00 | EXTERNAL | | | | performed at [facility];[address] | mg/dL | LAB | | | | [address];[place] | | | | | | [address] | | | | + + + + + + | BUN/Creatin | 16Comment: Testing | | EXTERNAL | | | ine Ratio | performed at [facility];[address] | | LAB | | | | [address];[place] | | | | | | [address] | | | | + + + + + + | Calcium | 7.1 (L)Comment: Testing | 8.5 - 10.5 | EXTERNAL | | | | performed at [facility];[address] | mg/dL | LAB | | | | [address];[place] | | | | | | [address] | | | | + + + + + + | Estimated | 46 (L)Comment: GFR <60: | mL/min/1.73m2 | EXTERNAL | | | GFR | CHRONIC KIDNEY DISEASE, | | LAB | | | | IF FOUND OVER A 3 MONTH | | | | | | PERIOD.GFR <15: KIDNEY | | | | | | FAILURE.FOR | | | | | | AMERICANS, MULTIPLY THE | | | | | | CALCULATED GFR BY | | | | | | 1.210.Testing performed | | | | | | at [facility];[address];[place] [address] | | | | + + + + + + + + | Specimen | + + | Blood specimen | | (specimen) | + + + +---------+ + + | Performing | Address | City/State/Zipcode | Phone Number | | Organization | | | | + +---------+ + + | EXTERNAL LAB | | | | + +---------+ + + [facility] (05/19/2015 11:47 PM PST) + + + + + -+ | Component | Value | Ref Range | Performed | Pathologist | | | | | At | Signature | + + + + + -+ | [facility] | 513.4 (H)Comment: | 0.5 - 3.6 ng/mL | EXTERNAL | | | | Testing performed at | | LAB | | | | [facility];[address];[place] [address] | | | | + + + + + -+ | [facility] Index | 22.8Comment: CK INDEX | | EXTERNAL | | | | INTERPRETATION: | | LAB | | | | [facility] ng/mL | | | | | | | | | | | |CK INDEX INTERPRETATION: | | | | | | [facility] ng/mL | | | | | | | | | | + + + + + -+ + + | Specimen | + + | Blood specimen | | (specimen) | + + + +---------+ + + | Performing | Address | City/State/Zipcode | Phone Number | | Organization | | | | + +---------+ + + | EXTERNAL LAB | | | | + +---------+ + + Troponin I (05/19/2015 11:47 PM PST) + + + + + + | Component | Value | Ref Range | Performed | Pathologist | | | | | At | Signature | + + + + + + | Troponin I, | 160 ()Comment: 0.00 | 0.00 - 0.10 | EXTERNAL | | | Qual | to 0.10 CONSISTENT | ng/mL | LAB | | | | WITH NORMAL | | | | | | POPULATION0.11 to 0.60 | | | | | | CONSISTENT WITH | | | | | | INCREASED RISK FOR | | | | | | ADVERSE OUTCOMES> 0.60 | | | | | | CONSISTENT | | | | | | WITH WHO CRITERIA FOR | | | | | | ACUTE UT RESULT READ | | | | | | BACK BY:MARK Lackey/JR ON | | | | | | [id number] AT [id number], | | | | | | VAPTesting performed at | | | | | | [facility];[address] [facility] | | | | | | [facility];[place] [address] | | | | + + + + + + + + | Specimen | + + | Blood specimen | | (specimen) | + + + +---------+ + + | Performing | Address | City/State/Zipcode | Phone Number | | Organization | | | | + +---------+ + + | EXTERNAL LAB | | | | + +---------+ + + CK Total (05/19/2015 11:47 PM PST) + + + + + + | Component | Value | Ref Range | Performed | Pathologist | | | | | At | Signature | + + + + + + | CK, Total | 2250 (H)Comment: Testing | 30 - 240 U/L | EXTERNAL | | | | performed at [facility];[address] | | LAB | | | | [address];[place], [place] | | | | | | [address] | | | | + + + + + + + + | Specimen | + + | Blood specimen | | (specimen) | + + + +---------+ + + | Performing | Address | City/State/Zipcode | Phone Number | | Organization | | | | + +---------+ + + | EXTERNAL LAB | | | | + +---------+ + + CK-MB (05/19/2015 5:41 PM PST) + + + + + -+ | Component | Value | Ref Range | Performed | Pathologist | | | | | At | Signature | + + + + + -+ | CK-MB | 797.4 (H)Comment: | 0.5 - 3.6 ng/mL | EXTERNAL | | | | Testing performed at | | LAB | | | | [facility];[address];[place] [address] | | | | + + + + + -+ | CK-MB Index | 28.9Comment: CK INDEX | | EXTERNAL | | | | INTERPRETATION: | | LAB | | | | MMB ng/mL | | | | | | | | | | | |CK INDEX INTERPRETATION: | | | | | | MMB ng/mL | | | | | | | | | | + + + + + -+ + + | Specimen | + + | Blood specimen | | (specimen) | + + + +---------+ + + | Performing | Address | City/State/Zipcode | Phone Number | | Organization | | | | + +---------+ + + | EXTERNAL LAB | | | | + +---------+ + + Troponin I (05/19/2015 5:41 PM PST) + + + + + + | Component | Value | Ref Range | Performed | Pathologist | | | | | At | Signature | + + + + + + | Troponin I, | >200 ()Comment: 0.00 | 0.00 - 0.10 | EXTERNAL | | | Qual | to 0.10 CONSISTENT | ng/mL | LAB | | | | WITH NORMAL | | | | | | POPULATION0.11 to 0.60 | | | | | | CONSISTENT WITH | | | | | | INCREASED RISK FOR | | | | | | ADVERSE OUTCOMES> 0.60 | | | | | | CONSISTENT | | | | | | WITH WHO CRITERIA FOR | | | | | | ACUTE UT CALLED TO | | | | | | ZEN Braros ON 4RP AT 1920 | | | | | | BY CD, READ BACKTesting | | | | | | performed at [facility];[address] | | | | | | [facility];[place], [place] | | | | | | [address] | | | | + + + + + + + + | Specimen | + + | Blood specimen | | (specimen) | + + + +---------+ + + | Performing | Address | City/State/Zipcode | Phone Number | | Organization | | | | + +---------+ + + | EXTERNAL LAB | | | | + +---------+ + + CK Total (05/19/2015 5:41 PM PST) + + + + + + | Component | Value | Ref Range | Performed | Pathologist | | | | | At | Signature | + + + + + + | CK, Total | 2763 (H)Comment: Testing | 30 - 240 U/L | EXTERNAL | | | | performed at [facility];[address] | | LAB | | | | [address];[place] | | | | | | [address] | | | | + + + + + + + + | Specimen | + + | Blood specimen | | (specimen) | + + + +---------+ + + | Performing | Address | City/State/Zipcode | Phone Number | | Organization | | | | + +---------+ + + | EXTERNAL LAB | | | | + +---------+ + + ECG 12 lead (05/19/2015 3:56 PM PST) + + + + + + | Component | Value | Ref Range | Performed | Pathologist | | | | | At | Signature | + + + + + + | DIAGNOSIS: | Sinus bradycardia with | | EXTERNAL | | | | sinus arrhythmiaST & T | | LAB | | | | wave abnormality, | | | | | | consider anterolateral | | | | | | ischemia Abnormal ECGNo | | | | | | significant change since | | | | | | previous ECG Confirmed | | | | | | by KAROLINE LOWERY ([id number]) | | | | | | on 05/19/2015 7:20:22 PM | | | | + + + + + + + + | Specimen | + + | | + + + + + | Narrative | Performed At | + + + | Historically converted procedure from [facility] | EXTERNAL LAB | + + + + +---------+ + + | Performing | Address | City/State/Zipcode | Phone Number | | Organization | | | | + +---------+ + + | EXTERNAL LAB | | | | + +---------+ + + CV CARDIAC PROCEDURE (05/19/2015 3:15 PM PST) + + | Specimen | + + | | + + + + + | Narrative | Performed At | + + + | | | | | | | DATE OF SERVICE May 19, 2015 PROCEDURES PERFORMED 1. Left | | | heart catheterization through the right radial artery. 2. Selective | | | coronary angiogram. 3. Left ventricular pressure recording without | | | left ventriculogram. 4. Angioplasty for the right coronary artery and | | | 2 overlapping drug eluting stents; distal right coronary artery | | | Promus Premier 2.25 x 24 mm, post dilated to a 3 and proximal right | | | coronary artery, Promus Premier 3 x 52 mm. HISTORY Mrs. Alejandro is | | | an 84-year-old lady with history of hyperlipidemia, hypertension, | | | hypothyroidism, presented to the ER complaining of chest pain, for 1 | | | day, continuous, severe, No specific aggravating or relieving | | | factors. She was thought to have ischemic ECG changes and elevated | | | troponin. The chest pain was not relieved in the emergency room with | | | IV heparin and IV nitroglycerin so she was referred for emergent left | | | heart catheterization. DESCRIPTION OF PROCEDURE The procedure | | | details, alternatives, complications, were explained for the patient. | | | Informed consent was obtained. The patient as brought to the room an | | | prepped in sterile fashion. Timeout was performed. Conscious sedation | | | was administered by independent observer. The right wrist was | | | anesthetized with 1% lidocaine. Right radial artery canalized with | | | 6-Pakistani cylinder sheath. 2.5 mg verapamil, 200 mcg nitroglycerin, | | | 5000 international units of heparin was given through the sheath. | | | Over 260 exchange wire, 5-Pakistani FL4 diagnostic catheter advanced to | | | the ascending aorta to selectively engage the left main. Contrast was | | | injected. Selective angiogram for the left main, LAD, left | | | circumflex artery performed in different views. Over the guidewire, | | | it was exchanged for a 5-Pakistani FR-4 diagnostic catheter addressed to | | | the left ventricle. Pressure was recorded without left | | | ventriculogram. Then selectively engaged the RCA. Contrast was | | | injected. Selective angiogram for the RCA was performed in different | | | views. 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 Decision was to proceed with angioplasty . The patient was | | | given with IV heparin. Over a guidewire the catheter was exchanged | | | for RC-4 SC 6-Pakistani guide that selectively engaged the RCA. A BMW | | | wire was advanced carefully to the distal RCA. A balloon Emerge 2 x | | | 12 mm advanced over the wire to the distal RCA and threaded to 10 | | | atmospheres. Balloon was removed. Only DARLIN 1 flow was reestablished. | | | All was concerned about the reason and for that I removed the | | | balloon. I extended the wire with a DOC wire to a 300 cm wire. A | | | FineCross was advanced over the wire and the BMW wire was removed. | | | Injection through the FineCross was done showing intraluminal | | | position. The BMW wire was readvanced through the FineCross to the | | | right posterolateral artery. The fine cross was removed and a stent | | | Promus Premier 2.25 x 24 mm placed in the distal artery, inflated at | | | 12 atmosphere, improving the flow to DARLIN 2 with evidence of poor | | | fluid more likely due to breaking of the clot. The patient was given | | | IV ReoPro and balloon was removed and another stent, Promus Premier 3 | | | x 52 mm adjust to the proximal to mid RCA, inflated at 12 | | | atmospheres. The balloon was removed. Post dilatation balloon 3.25 x | | | 20 mm advanced first to the distal RCA at the distal stent and had a | | | new inflation at 6 to 8 atmosphere in the proximal part of the stent. | | | Then it was used to postdilate the proximal stent at 18 atmospheres. | | | Balloon and wire was removed. Intracoronary adenosine, a total of 10 | | | mL of 24 mcg/mL concentration was given through the guide and then | | | final angiogram was done that showed good angiographic rhythm, DARLIN 3 | | | flow, no complications. Over the guidewire, the guide was removed. | | | Sheath was removed. TR band was applied with good hemostasis. The | | | patient was transferred to the recovery area in stable condition. | | | FINDINGS HEMODYNAMICS 1. Systemic pressure 98/59. 2. Left | | | ventricular end diastolic pressure 4.4. 3. No significant gradient | | | across the aortic valve. ANGIOGRAM 1. Left main. Normal size, no | | | significant stenosis. 2. Left anterior descending artery. Normal | | | size. No significant stenosis. 3. Mid. 60% stenosis at the | | | bifurcation at the first diagonal. Mid and distal LAD have no | | | significant stenosis and it drops around the apex. 4. Second and | | | third diagonals are absent. First diagonal has a normal size has a | | | 90% ostial stenosis at the bifurcation of 50% with LAD stenosis. | | | 5. Ramus is a large artery with no significant stenosis. 6. Left | | | circumflex artery is a normal artery with no significant stenosis. | | | 7. First and third marginal are absent. Second obtuse marginal is | | | small. No significant stenosis. 8. RCA, proximally normal size, a | | | 50% to 60% stenosis extending into the mid RCA 9. Right PDA small, | | | no significant stenosis. 10. Right AV groove artery with 2 right | | | posterolateral arteries are smooth, no significant stenosis. 11. | | | Right dominant circulation. CONTRAST USED 85 mL | | | COMPLICATIONSNone. ESTIMATED BLOOD LOSS Less than 50 mL | | | CONCLUSIONS 1. High risk non-ST elevation myocardial infarction. 2. 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 3. Angioplasty for 2 overlapping drug eluting | | | stents, Promus Premier 3 x 32 mm in the proximal to mid RCA. | | | RECOMMENDATIONS 1. Aspirin 81 mg indefinitely. 2. Clopidogrel 75 mg | | | for 1 year. 3. Aggressive risk factor medication. 4. Admission to | | | the inpatient unit. 5. 2D echocardiogram. Read by MAXX BARKER | | | 05/19/2015 03:24 P Electronically signed by Maxx Barker MD on | | | 05/28/2015 5:10 PM | | + + + + + | Procedure Note | + + | Rogers Haddad Conversion - 11/16/2018 3:05 PM PDT | | | | DATE OF SERVICE | | May 19, 2015 | | | | PROCEDURES PERFORMED | | 1. Left heart catheterization through the right radial artery. | | 2. Selective coronary angiogram. | | 3. Left ventricular pressure recording without left ventriculogram. | | 4. Angioplasty for the right coronary artery and 2 overlapping drug | | eluting stents; distal right coronary artery Promus Premier 2.25 x 24 | | mm, post dilated to a 3 and proximal right coronary artery, Promus | | Premier 3 x 52 mm. | | | | HISTORY | | Mrs. Alejandro is an 84-year-old lady with history of hyperlipidemia, | | hypertension, hypothyroidism, presented to the ER complaining of chest | | pain, for 1 day, continuous, severe, No specific aggravating or relieving | | factors. She was thought to have ischemic ECG changes and elevated | | troponin. The chest pain was not relieved in the emergency room with IV | | heparin and IV nitroglycerin so she was referred for emergent left heart | | catheterization. | | | | DESCRIPTION OF PROCEDURE | | The procedure details, alternatives, complications, were explained for the | | patient. Informed consent was obtained. The patient as brought to the room | | an prepped in sterile fashion. Timeout was performed. Conscious sedation | | was administered by independent observer. The right wrist was anesthetized | | with 1% lidocaine. Right radial artery canalized with 6-Pakistani cylinder | | sheath. 2.5 mg verapamil, 200 mcg nitroglycerin, 5000 international units | | of heparin was given through the sheath. Over 260 exchange wire, 5-Pakistani | | FL4 diagnostic catheter advanced to the ascending aorta to selectively | | engage the left main. Contrast was injected. Selective angiogram for the | | left main, LAD, left circumflex artery performed in different views. Over | | the guidewire, it was exchanged for a 5-Pakistani FR-4 diagnostic catheter | | addressed to the left ventricle. Pressure was recorded without left | | ventriculogram. Then selectively engaged the RCA. Contrast was injected. | | Selective angiogram for the RCA was performed in different views. | | | | I noticed the distal RCA has 100% occlusion which is the culprit lesion | | with evidence of spontaneous dissection in the mid RCA. Decision was to | | proceed with angioplasty . | | | | The patient was given with IV heparin. | | | | Over a guidewire the catheter was exchanged for RC-4 SC 6-Pakistani guide | | that selectively engaged the RCA. A BMW wire was advanced carefully to the | | distal RCA. A balloon Emerge 2 x 12 mm advanced over the wire to the | | distal RCA and threaded to 10 atmospheres. Balloon was removed. Only DARLIN | | 1 flow was reestablished. All was concerned about the reason and for that | | I removed the balloon. I extended the wire with a DOC wire to a 300 cm | | wire. A FineCross was advanced over the wire and the BMW wire was | | removed. Injection through the FineCross was done showing intraluminal | | position. The BMW wire was readvanced through the FineCross to the right | | posterolateral artery. The fine cross was removed and a stent Promus | | Premier 2.25 x 24 mm placed in the distal artery, inflated at 12 | | atmosphere, improving the flow to DARLIN 2 with evidence of poor fluid more | | likely due to breaking of the clot. The patient was given IV ReoPro and | | balloon was removed and another stent, Promus Premier 3 x 52 mm adjust to | | the proximal to mid RCA, inflated at 12 atmospheres. The balloon was | | removed. Post dilatation balloon 3.25 x 20 mm advanced first to the distal | | RCA at the distal stent and had a new inflation at 6 to 8 atmosphere in | | the proximal part of the stent. Then it was used to postdilate the | | proximal stent at 18 atmospheres. Balloon and wire was removed. | | Intracoronary adenosine, a total of 10 mL of 24 mcg/mL concentration was | | given through the guide and then final angiogram was done that showed good | | angiographic rhythm, DARLIN 3 flow, no complications. Over the guidewire, | | the guide was removed. Sheath was removed. TR band was applied with good | | hemostasis. The patient was transferred to the recovery area in stable | | condition. | | | | FINDINGS | | HEMODYNAMICS | | 1. Systemic pressure 98/59. | | 2. Left ventricular end diastolic pressure 4.4. | | 3. No significant gradient across the aortic valve. | | | | ANGIOGRAM | | 1. Left main. Normal size, no significant stenosis. | | 2. Left anterior descending artery. Normal size. No significant stenosis. | | 3. Mid. 60% stenosis at the bifurcation at the first diagonal. Mid and | | distal LAD have no significant stenosis and it drops around the apex. | | 4. Second and third diagonals are absent. First diagonal has a normal size | | has a 90% ostial stenosis at the bifurcation of 50% with LAD stenosis. | | | | 5. Ramus is a large artery with no significant stenosis. | | 6. Left circumflex artery is a normal artery with no significant | | stenosis. | | 7. First and third marginal are absent. Second obtuse marginal is small. | | No significant stenosis. | | 8. RCA, proximally normal size, a 50% to 60% stenosis extending into the | | mid RCA | | 9. Right PDA small, no significant stenosis. | | 10. Right AV groove artery with 2 right posterolateral arteries are | | smooth, no significant stenosis. | | 11. Right dominant circulation. | | | | CONTRAST USED | | 85 mL | | | | COMPLICATIONSNone. | | | | ESTIMATED BLOOD LOSS | | Less than 50 mL | | | | CONCLUSIONS | | 1. High risk non-ST elevation myocardial infarction. | | 2. 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 | | 3. Angioplasty for 2 overlapping drug eluting stents, Promus Premier 3 x | | 32 mm in the proximal to mid RCA. | | | | RECOMMENDATIONS | | 1. Aspirin 81 mg indefinitely. | | 2. Clopidogrel 75 mg for 1 year. | | 3. Aggressive risk factor medication. | | 4. Admission to the inpatient unit. | | 5. 2D echocardiogram. | | | | Read by MAXX BARKER MD 05/19/2015 03:24 P | | | | | + + CV CARDIAC PROCEDURE (05/19/2015 3:15 PM PST) + + | Specimen | + + | | + + + + + | Narrative | Performed At | + + + | | | | | | | DATE OF SERVICE May 19, 2015 PROCEDURES PERFORMED 1. Left | | | heart catheterization through the right radial artery. 2. Selective | | | coronary angiogram. 3. Left ventricular pressure recording without | | | left ventriculogram. 4. Angioplasty for the right coronary artery and | | | 2 overlapping drug eluting stents; distal right coronary artery | | | Promus Premier 2.25 x 24 mm, post dilated to a 3 and proximal right | | | coronary artery, Promus Premier 3 x 52 mm. HISTORY Mrs. Alejandro is | | | an 84-year-old lady with history of hyperlipidemia, hypertension, | | | hypothyroidism, presented to the ER complaining of chest pain, for 1 | | | day, continuous, severe, No specific aggravating or relieving | | | factors. She was thought to have ischemic ECG changes and elevated | | | troponin. The chest pain was not relieved in the emergency room with | | | IV heparin and IV nitroglycerin so she was referred for emergent left | | | heart catheterization. DESCRIPTION OF PROCEDURE The procedure | | | details, alternatives, complications, were explained for the patient. | | | Informed consent was obtained. The patient as brought to the room an | | | prepped in sterile fashion. Timeout was performed. Conscious sedation | | | was administered by independent observer. The right wrist was | | | anesthetized with 1% lidocaine. Right radial artery canalized with | | | 6-Pakistani cylinder sheath. 2.5 mg verapamil, 200 mcg nitroglycerin, | | | 5000 international units of heparin was given through the sheath. | | | Over 260 exchange wire, 5-Pakistani FL4 diagnostic catheter advanced to | | | the ascending aorta to selectively engage the left main. Contrast was | | | injected. Selective angiogram for the left main, LAD, left | | | circumflex artery performed in different views. Over the guidewire, | | | it was exchanged for a 5-Pakistani FR-4 diagnostic catheter addressed to | | | the left ventricle. Pressure was recorded without left | | | ventriculogram. Then selectively engaged the RCA. Contrast was | | | injected. Selective angiogram for the RCA was performed in different | | | views. 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 Decision was to proceed with angioplasty . The patient was | | | given with IV heparin. Over a guidewire the catheter was exchanged | | | for RC-4 SC 6-Pakistani guide that selectively engaged the RCA. A BMW | | | wire was advanced carefully to the distal RCA. A balloon Emerge 2 x | | | 12 mm advanced over the wire to the distal RCA and threaded to 10 | | | atmospheres. Balloon was removed. Only DARLIN 1 flow was reestablished. | | | All was concerned about the reason and for that I removed the | | | balloon. I extended the wire with a DOC wire to a 300 cm wire. A | | | FineCross was advanced over the wire and the BMW wire was removed. | | | Injection through the FineCross was done showing intraluminal | | | position. The BMW wire was readvanced through the FineCross to the | | | right posterolateral artery. The fine cross was removed and a stent | | | Promus Premier 2.25 x 24 mm placed in the distal artery, inflated at | | | 12 atmosphere, improving the flow to DARLIN 2 with evidence of poor | | | fluid more likely due to breaking of the clot. The patient was given | | | IV ReoPro and balloon was removed and another stent, Promus Premier 3 | | | x 52 mm adjust to the proximal to mid RCA, inflated at 12 | | | atmospheres. The balloon was removed. Post dilatation balloon 3.25 x | | | 20 mm advanced first to the distal RCA at the distal stent and had a | | | new inflation at 6 to 8 atmosphere in the proximal part of the stent. | | | Then it was used to postdilate the proximal stent at 18 atmospheres. | | | Balloon and wire was removed. Intracoronary adenosine, a total of 10 | | | mL of 24 mcg/mL concentration was given through the guide and then | | | final angiogram was done that showed good angiographic rhythm, DARLIN 3 | | | flow, no complications. Over the guidewire, the guide was removed. | | | Sheath was removed. TR band was applied with good hemostasis. The | | | patient was transferred to the recovery area in stable condition. | | | FINDINGS HEMODYNAMICS 1. Systemic pressure 98/59. 2. Left | | | ventricular end diastolic pressure 4.4. 3. No significant gradient | | | across the aortic valve. ANGIOGRAM 1. Left main. Normal size, no | | | significant stenosis. 2. Left anterior descending artery. Normal | | | size. No significant stenosis. 3. Mid. 60% stenosis at the | | | bifurcation at the first diagonal. Mid and distal LAD have no | | | significant stenosis and it drops around the apex. 4. Second and | | | third diagonals are absent. First diagonal has a normal size has a | | | 90% ostial stenosis at the bifurcation of 50% with LAD stenosis. | | | 5. Ramus is a large artery with no significant stenosis. 6. Left | | | circumflex artery is a normal artery with no significant stenosis. | | | 7. First and third marginal are absent. Second obtuse marginal is | | | small. No significant stenosis. 8. RCA, proximally normal size, a | | | 50% to 60% stenosis extending into the mid RCA 9. Right PDA small, | | | no significant stenosis. 10. Right AV groove artery with 2 right | | | posterolateral arteries are smooth, no significant stenosis. 11. | | | Right dominant circulation. CONTRAST USED 85 mL | | | COMPLICATIONSNone. ESTIMATED BLOOD LOSS Less than 50 mL | | | CONCLUSIONS 1. High risk non-ST elevation myocardial infarction. 2. 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 3. Angioplasty for 2 overlapping drug eluting | | | stents, Promus Premier 3 x 32 mm in the proximal to mid RCA. | | | RECOMMENDATIONS 1. Aspirin 81 mg indefinitely. 2. Clopidogrel 75 mg | | | for 1 year. 3. Aggressive risk factor medication. 4. Admission to | | | the inpatient unit. 5. 2D echocardiogram. Read by MAXX BARKER | | | 05/19/2015 03:24 P Electronically signed by Maxx Barker MD on | | | 05/28/2015 5:10 PM | | + + + + + | Procedure Note | + + | Rogers Haddad Conversion - 11/16/2018 3:05 PM PDT | | | | DATE OF SERVICE | | May 19, 2015 | | | | PROCEDURES PERFORMED | | 1. Left heart catheterization through the right radial artery. | | 2. Selective coronary angiogram. | | 3. Left ventricular pressure recording without left ventriculogram. | | 4. Angioplasty for the right coronary artery and 2 overlapping drug | | eluting stents; distal right coronary artery Promus Premier 2.25 x 24 | | mm, post dilated to a 3 and proximal right coronary artery, Promus | | Premier 3 x 52 mm. | | | | HISTORY | | Mrs. Alejandro is an 84-year-old lady with history of hyperlipidemia, | | hypertension, hypothyroidism, presented to the ER complaining of chest | | pain, for 1 day, continuous, severe, No specific aggravating or relieving | | factors. She was thought to have ischemic ECG changes and elevated | | troponin. The chest pain was not relieved in the emergency room with IV | | heparin and IV nitroglycerin so she was referred for emergent left heart | | catheterization. | | | | DESCRIPTION OF PROCEDURE | | The procedure details, alternatives, complications, were explained for the | | patient. Informed consent was obtained. The patient as brought to the room | | an prepped in sterile fashion. Timeout was performed. Conscious sedation | | was administered by independent observer. The right wrist was anesthetized | | with 1% lidocaine. Right radial artery canalized with 6-Pakistani cylinder | | sheath. 2.5 mg verapamil, 200 mcg nitroglycerin, 5000 international units | | of heparin was given through the sheath. Over 260 exchange wire, 5-Pakistani | | FL4 diagnostic catheter advanced to the ascending aorta to selectively | | engage the left main. Contrast was injected. Selective angiogram for the | | left main, LAD, left circumflex artery performed in different views. Over | | the guidewire, it was exchanged for a 5-Pakistani FR-4 diagnostic catheter | | addressed to the left ventricle. Pressure was recorded without left | | ventriculogram. Then selectively engaged the RCA. Contrast was injected. | | Selective angiogram for the RCA was performed in different views. | | | | I noticed the distal RCA has 100% occlusion which is the culprit lesion | | with evidence of spontaneous dissection in the mid RCA. Decision was to | | proceed with angioplasty . | | | | The patient was given with IV heparin. | | | | Over a guidewire the catheter was exchanged for RC-4 SC 6-Pakistani guide | | that selectively engaged the RCA. A BMW wire was advanced carefully to the | | distal RCA. A balloon Emerge 2 x 12 mm advanced over the wire to the | | distal RCA and threaded to 10 atmospheres. Balloon was removed. Only DARLIN | | 1 flow was reestablished. All was concerned about the reason and for that | | I removed the balloon. I extended the wire with a DOC wire to a 300 cm | | wire. A FineCross was advanced over the wire and the BMW wire was | | removed. Injection through the FineCross was done showing intraluminal | | position. The BMW wire was readvanced through the FineCross to the right | | posterolateral artery. The fine cross was removed and a stent Promus | | Premier 2.25 x 24 mm placed in the distal artery, inflated at 12 | | atmosphere, improving the flow to DARLIN 2 with evidence of poor fluid more | | likely due to breaking of the clot. The patient was given IV ReoPro and | | balloon was removed and another stent, Promus Premier 3 x 52 mm adjust to | | the proximal to mid RCA, inflated at 12 atmospheres. The balloon was | | removed. Post dilatation balloon 3.25 x 20 mm advanced first to the distal | | RCA at the distal stent and had a new inflation at 6 to 8 atmosphere in | | the proximal part of the stent. Then it was used to postdilate the | | proximal stent at 18 atmospheres. Balloon and wire was removed. | | Intracoronary adenosine, a total of 10 mL of 24 mcg/mL concentration was | | given through the guide and then final angiogram was done that showed good | | angiographic rhythm, DARLIN 3 flow, no complications. Over the guidewire, | | the guide was removed. Sheath was removed. TR band was applied with good | | hemostasis. The patient was transferred to the recovery area in stable | | condition. | | | | FINDINGS | | HEMODYNAMICS | | 1. Systemic pressure 98/59. | | 2. Left ventricular end diastolic pressure 4.4. | | 3. No significant gradient across the aortic valve. | | | | ANGIOGRAM | | 1. Left main. Normal size, no significant stenosis. | | 2. Left anterior descending artery. Normal size. No significant stenosis. | | 3. Mid. 60% stenosis at the bifurcation at the first diagonal. Mid and | | distal LAD have no significant stenosis and it drops around the apex. | | 4. Second and third diagonals are absent. First diagonal has a normal size | | has a 90% ostial stenosis at the bifurcation of 50% with LAD stenosis. | | | | 5. Ramus is a large artery with no significant stenosis. | | 6. Left circumflex artery is a normal artery with no significant | | stenosis. | | 7. First and third marginal are absent. Second obtuse marginal is small. | | No significant stenosis. | | 8. RCA, proximally normal size, a 50% to 60% stenosis extending into the | | mid RCA | | 9. Right PDA small, no significant stenosis. | | 10. Right AV groove artery with 2 right posterolateral arteries are | | smooth, no significant stenosis. | | 11. Right dominant circulation. | | | | CONTRAST USED | | 85 mL | | | | COMPLICATIONSNone. | | | | ESTIMATED BLOOD LOSS | | Less than 50 mL | | | | CONCLUSIONS | | 1. High risk non-ST elevation myocardial infarction. | | 2. 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 | | 3. Angioplasty for 2 overlapping drug eluting stents, Promus Premier 3 x | | 32 mm in the proximal to mid RCA. | | | | RECOMMENDATIONS | | 1. Aspirin 81 mg indefinitely. | | 2. Clopidogrel 75 mg for 1 year. | | 3. Aggressive risk factor medication. | | 4. Admission to the inpatient unit. | | 5. 2D echocardiogram. | | | | Read by MAXX BARKER MD 05/19/2015 03:24 P | | | | | + + Activated clotting time (05/19/2015 2:58 PM PST) + + + + + + | Component | Value | Ref Range | Performed | Pathologist | | | | | At | Signature | + + + + + + | Activated | 183 (H)Comment: Testing | 74 - 137 | EXTERNAL | | | Clotting | performed at [facility];888 | seconds | LAB | | | time, POC | [address];[place] | | | | | | [address] | | | | + + + + + + + + | Specimen | + + | | + + + +---------+ + + | Performing | Address | City/State/Zipcode | Phone Number | | Organization | | | | + +---------+ + + | EXTERNAL LAB | | | | + +---------+ + + Activated clotting time (05/19/2015 2:15 PM PST) + + + + + + | Component | Value | Ref Range | Performed | Pathologist | | | | | At | Signature | + + + + + + | Activated | 220 (H)Comment: Testing | 74 - 137 | EXTERNAL | | | Clotting | performed at [facility];888 | seconds | LAB | | | time, POC | [address];[place], [place] | | | | | | [address] | | | | + + + + + + + + | Specimen | + + | | + + + +---------+ + + | Performing | Address | City/State/Zipcode | Phone Number | | Organization | | | | + +---------+ + + | EXTERNAL LAB | | | | + +---------+ + + XR Chest 1 Vw (05/19/2015 1:13 PM PST) + + | Specimen | + + | | + + + + + | Impressions | Performed At | + + + | 1. Mild left basilar atelectasis/aspiration. No other areas of | | | consolidation. 2. No pneumothorax, no pleural effusion. | | | | | + + + + + + | Narrative | Performed At | + + + | DAMIR Garcia ALEJANDRO 1930 84 years XR CHEST 1 VIEW 05/19/2015 1:13 | | | PM INDICATION: Chest pain. COMPARISON: None TECHNIQUE: | | | Chest 1 view, AP view of the chest FINDINGS: Mild left basilar | | | atelectasis/aspiration, no other areas of dense lung consolidation. | | | No pneumothorax. Upper mediastinal contours and heart size are | | | normal. No acute osseous abnormality. No pleural effusion. | | + + + + + | Procedure Note | + + | Rogers Haddad - 11/10/2018 5:37 PM PDT DAMIR Garcia [facility]/[id number] yearsXR CHEST | | 1 VIEW05/19/2015 1:13 PM INDICATION: Chest pain. COMPARISON: None TECHNIQUE: Chest 1 | | view, AP view of the chest FINDINGS: Mild left basilar atelectasis/aspiration, no other | | areas of dense lung consolidation. No pneumothorax. Upper mediastinal contours and heart | | size are normal. No acute osseous abnormality. No pleural effusion. IMPRESSION: 1. | | Mild left basilar atelectasis/aspiration. No other areas of consolidation.2. No | | pneumothorax, no pleural effusion. | | 1:17 PM | |COMPARISON: None | | | |TECHNIQUE: Chest 1 view, AP view of the chest | | | |FINDINGS: | | | |Mild left basilar atelectasis/aspiration, no other areas of dense lung consolidation. No pn eumothorax. | | | |Upper mediastinal contours and heart size are normal. | | | |No acute osseous abnormality. | | | |No pleural effusion. | | | |IMPRESSION: | | | |1. Mild left basilar atelectasis/aspiration. No other areas of consolidation. | |2. No pneumothorax, no pleural effusion. | | | | | + + PTT (05/19/2015 12:05 PM PST) + + + + + + | Component | Value | Ref Range | Performed | Pathologist | | | | | At | Signature | + + + + + + | aPTT, | 117 ()Comment: CALLED | 23 - 32 seconds | EXTERNAL | | | Patient | PHYSICIANREAD BACK | | LAB | | | | RESULTS | | | | | | MORE IN ED | | | | | | AT 1349 BY CRKTesting | | | | | | performed at [facility];[address] | | | | | | [address];[place], [place] | | | | | | [address] | | | | + + + + + + + + | Specimen | + + | Blood specimen | | (specimen) | + + + +---------+ + + | Performing | Address | City/State/Zipcode | Phone Number | | Organization | | | | + +---------+ + + | EXTERNAL LAB | | | | + +---------+ + + Protime INR (05/19/2015 12:05 PM PST) + + + + + + | Component | Value | Ref Range | Performed | Pathologist | | | | | At | Signature | + + + + + + | INR | 1.1Comment: REFERENCE | | EXTERNAL | | | | RANGE:0.9 - 1.2 | | LAB | | | | NON-ANTICOAGULATED2.0 | | | | | | - 3.0 ALL OTHER | | | | | | THERAPEUTIC | | | | | | INDICATIONS2.5 - 3.5 | | | | | | MECHANICAL HEART VALVES, | | | | | | RECURRENT OR SYSTEMIC | | | | | | EMBOLISMTesting | | | | | | performed at [facility];[address] | | | | | | [address];[place], [place] | | | | | | [address] | | | | + + + + + + + + | Specimen | + + | Blood specimen | | (specimen) | + + + +---------+ + + | Performing | Address | City/State/Zipcode | Phone Number | | Organization | | | | + +---------+ + + | EXTERNAL LAB | | | | + +---------+ + + Basic Metabolic Panel (05/19/2015 12:05 PM PST) + + + + + + | Component | Value | Ref Range | Performed | Pathologist | | | | | At | Signature | + + + + + + | Na | 139Comment: Testing | 135 - 143 | EXTERNAL | | | | performed at [facility];888 | mmol/L | LAB | | | | [address];[place] | | | | | | [address] | | | | + + + + + + | K | 4.4Comment: Testing | 3.5 - 4.9 | EXTERNAL | | | | performed at [facility];888 | mmol/L | LAB | | | | [address];[place] | | | | | | [address] | | | | + + + + + + | Cl | 105Comment: Testing | 99 - 109 mmol/L | EXTERNAL | | | | performed at [facility];[address] | | LAB | | | | [address];[place] | | | | | | [address] | | | | + + + + + + | CO2 | 26Comment: Testing | 23 - 32 mmol/L | EXTERNAL | | | | performed at [facility];[address] | | LAB | | | | [address];[place] | | | | | | [address] | | | | + + + + + + | Anion Gap | 12Comment: Testing | 5 - 20 mmol/L | EXTERNAL | | | | performed at [facility];[address] | | LAB | | | | [address];[place] | | | | | | [address] | | | | + + + + + + | Glucose, | 95Comment: Testing | 65 - 99 mg/dL | EXTERNAL | | | Fasting | performed at [facility];[address] | | LAB | | | | [address];[place] | | | | | | [address] | | | | + + + + + + | BUN | 24Comment: Testing | 8 - 25 mg/dL | EXTERNAL | | | | performed at [facility];[address] | | LAB | | | | [address];[place] | | | | | | [address] | | | | + + + + + + | Creatinine | 1.5 (H)Comment: Testing | 0.50 - 1.00 | EXTERNAL | | | | performed at [facility];888 | mg/dL | LAB | | | | [address];[place] | | | | | | [address] | | | | + + + + + + | BUN/Creatin | 16Comment: Testing | | EXTERNAL | | | ine Ratio | performed at [facility];[address] | | LAB | | | | [address];[place] | | | | | | [address] | | | | + + + + + + | Calcium | 8.2 (L)Comment: Testing | 8.5 - 10.5 | EXTERNAL | | | | performed at [facility];888 | mg/dL | LAB | | | | [address];[place] | | | | | | [address] | | | | + + + + + + | Estimated | 35 (L)Comment: GFR <60: | mL/min/1.73m2 | EXTERNAL | | | GFR | CHRONIC KIDNEY DISEASE, | | LAB | | | | IF FOUND OVER A 3 MONTH | | | | | | PERIOD.GFR <15: KIDNEY | | | | | | FAILURE.FOR | | | | | | AMERICANS, MULTIPLY THE | | | | | | CALCULATED GFR BY | | | | | | 1.210.Testing performed | | | | | | at [facility];[address] [place] [address] | | | | | | [facility];[place] [address] | | | | + + + + + + + + | Specimen | + + | Blood specimen | | (specimen) | + + + +---------+ + + | Performing | Address | City/State/Zipcode | Phone Number | | Organization | | | | + +---------+ + + | EXTERNAL LAB | | | | + +---------+ + + ECG 12 lead (05/19/2015 11:48 AM PST) + + + + + + | Component | Value | Ref Range | Performed | Pathologist | | | | | At | Signature | + + + + + + | DIAGNOSIS: | Normal sinus rhythmST & | | EXTERNAL | | | | T wave abnormality, | | LAB | | | | consider anterolateral | | | | | | ischemiaAbnormal ECGNo | | | | | | previous ECGs | | | | | | availableThis ECG | | | | | | contains Unconfirmed | | | | | | Interpretation | | | | | | Statements. See ED | | | | | | Record for Physician | | | | | | Interpretation. | | | | | | Confirmed by MUSE READ | | | | | | ONLY, -COMPUTER ([id number]), | | | | | | photographic editor Bonnie Sánchez | | | | | | (15) on 05/19/2015 | | | | | | 4:21:25 PM | | | | + + + + + + + + | Specimen | + + | | + + + + + | Narrative | Performed At | + + + | Historically converted procedure from [facility] Epic environment | EXTERNAL LAB | + + + + +---------+ + + | Performing | Address | City/State/Zipcode | Phone Number | | Organization | | | | + +---------+ + + | EXTERNAL LAB | | | | + +---------+ + + XR Chest 1 Vw (05/19/2015 12:48 AM PST) + + | Specimen | + + | | + + + + + | Narrative | Performed At | + + + | This is a non-reportable procedure without a radiologist report and | | | is used for image storage only | | + + + + + | Procedure Note | + + | Rogers Hadadd Conversion - 11/10/2018 5:37 PM PDT This is a non-reportable procedure | | without a radiologist report and isused for image storage only | + + documented in this encounter Visit Diagnoses + + | Diagnosis | + + | NSTEMI (non-ST elevated myocardial infarction) (HCC) Acute myocardial infarction, | | subendocardial infarction, episode of care unspecified | + + documented in this encounter
--- OUTSIDE RECORDS SUMMARY | ~2019-08-05 | XMS | Encounter Summary ---
Demographics + + + | Address | [address] | | | [place] [address] | + + + | Home Phone | | + + + | Preferred Language | Unknown | + + + | Marital Status | | + + + | Anglican Affiliation | Unknown | + + + | Race | Unknown | + + + | Ethnic Group | Unknown | + + + Author + + + | Author | [facility] | | | and [place] | + + + | Organization | [facility] | | [...] Team Providers + +------+ + | Care Bark Tanner Name | Role | Phone | + +------+ + | Luanne Love | PCP | | | PA | | | + +------+ + Encounter Details +--------+ + + + + | Date | Type | Department | Care Team | Description | +--------+ + + + + | 07/06/ | Orders Only | [facility] | Brianna Stewart | | | 2018 | | CARDIOLOGY [place] | [address] [facility] [address] | | | | | [address] | [address] | | | | | [address] | [place] [address] | | | | | [place] | [phone] | | | | | [address] | | | | | | [phone] | | | +--------+ + + + [...] [place] | | | | | | [address] | | | | | | | | +--------+---------+ + + + | 01/17/ | Office | Cardiology | Brianna Stewart | | | 2019 | Visit | | [address] | | | | | | [address] | | | | | | [place] [address] | | | | | | [phone] | | | | | | | | +--------+---------+ + + + documented as of this encounter Visit Diagnoses Not on filedocumented in this encounter"
--- OUTSIDE RECORDS SUMMARY | ~2019-08-05 | XMS | Encounter Summary ---
Demographics + + + | Address | [address] | | | [place] [address] | + + + | Home Phone | | + + + | Preferred Language | Unknown | + + + | Marital Status | | + + + | Sikh Affiliation | Unknown | + + + | Race | Unknown | + + + | Ethnic Group | Unknown | + + + Author + + + | Author | [facility] | | | and [place] | + + + | Organization | [facility] | | [...] Team Providers + +------+ + | Care Store Assistant Name | Role | Phone | + +------+ + | Luanne Love | PCP | | | PA | | | + +------+ + Encounter Details +--------+ + + + + | Date | Type | Department | Care Team | Description | +--------+ + + + + | 06/27/ | Orders Only | [facility] | Maxx Buchanan MD | Essential | | 2020 | | NEPHROLOGY [place] | [address] [place] | hypertension | | | | [address] | [address] [place], [place] | (Primary Dx); | | | | [address] | [address] | Chronic kidney | | | | [place], [place] | | disease, stage III | | | | [address] | | (moderate) | | | | [phone] | | | +--------+ + + + [...] | | | | | | [address] [facility] | | | | | | [address] | | | | | | | | +--------+---------+ + + + | 01/17/ | Office | Cardiology | Brianna Stewart | | | 2019 | Visit | | [address] | | | | | | [address] | | | | | | [place] [address] | | | | | | [phone] | | | | | | | | +--------+---------+ + + + + +------+--------+ + + | Name | Type | Priori | Associated Diagnoses | Order Schedule | | | | ty | | | + +------+--------+ + + | Basic Metabolic | Lab | Routin | Essential | Expected: | | Panel | | e | hypertension | 10/23/2019, Expires: | | | | | Chronic kidney | 06/27/2020 | | | | | disease, stage III | | | | | | (moderate) | | + +------+--------+ + + | Protein/Creatinine | Lab | Routin | Essential | Expected: | | Ratio, Urine | | e | hypertension | 10/23/2019, Expires: | | | | | Chronic kidney | 06/27/2020 | | | | | disease, stage III | | | | | | (moderate) | | + +------+--------+ + + | Uric Acid | Lab | Routin | Essential | Expected: | | | | e | hypertension | 10/23/2019, Expires: | | | | | Chronic kidney | 06/27/2020 | | | | | disease, stage III | | | | | | (moderate) | | + +------+--------+ + + | Urinalysis With | Lab | Routin | Essential | Expected: | | Microscopic | | e | hypertension | 10/23/2019, Expires: | | | | | Chronic kidney | 06/27/2020 | | | | | disease, stage III | | | | | | (moderate) | | + +------+--------+ + + | CBC with | Lab | Routin | Essential | Expected: | | Differential | | e | hypertension | 10/23/2019, Expires: | | | | | Chronic kidney | 06/27/2020 | | | | | disease, stage III | | | | | | (moderate) | | + +------+--------+ + + documented as of this encounter Visit Diagnoses + + | Diagnosis | + + | Essential hypertension - Primary Unspecified essential hypertension | + + | Chronic kidney disease, stage III (moderate) | + + documented in this encounter"
--- OUTSIDE RECORDS SUMMARY | ~2019-08-05 | XMS | Clinical Summary ---
Demographics + + + | Address | [address] | | | [place] [address] | + + + | Home Phone | | + + + | Preferred Language | Unknown | + + + | Marital Status | | + + + | Hoahaoism Affiliation | Unknown | + + + | Race | Unknown | + + + | Ethnic Group | Unknown | + + + Author + + + | Author | [facility] (Historical as of | | | 11-12-18) | + + + | Organization | [facility] (Historical as of | | | 11-12-18) [...] Team Providers + +------+ + | Care Emergency Department Manager Name | Role | Phone | + [...] | Heart | SCIENTIFIC | | | /[id number] | | Qty: 1 on 05/19/2015 by | | | Feesheh | | | [phone] | | Maxx Nayak MD | | | | | | | + +-------+-------+ +--------+--------+--------+ | Promus | Stent | N/A: | [place] | | | / | | Premier-05/19/2015Implanted: | | Heart | SCIENTIFIC | | | /[phone] | | Qty: 1 on 05/19/2015 by | | | Feesheh | | | [phone] | | Maxx [...] +------+-------+ + | MEDICARE | MEDICA | [id number] | | | [address] | | | RE | | | | [place] [phone] | | | IP-OP | | | | | + +--------+ +------+-------+ + | COMMERCIAL OTHER | COMMER | [id number] | | | | | | CIAL [...] | manuel | | | [phone] | [phone] | + +--------+ +--------+ + +
--- OUTSIDE RECORDS SUMMARY | ~2019-08-05 | XMS | Encounter Summary ---
Demographics + + + | Address | [address] | | | [place] [address] | + + + | Home Phone | | + + + | Preferred Language | Unknown | + + + | Marital Status | | + + + | Buddhist Affiliation | Unknown | + + + | Race | Unknown | + + + | Ethnic Group | Unknown | + + + Author + + + | Author | [facility] | | | and [place] | + + + | Organization | [facility] | | | and [...] Team Providers + +------+ + | Care Lesson Instructor Name | Role | Phone | + +------+ + | Luanne Love | PCP | | | PA | | | + +------+ + Encounter Details +--------+ + + + + | Date | Type | Department | Care Team | Description | +--------+ + + + + | 09/09/ | Orders Only | [facility] | Aidan Becker, | | | 2018 | | CARDIOLOGY [place] | [address] | | | | | [address] | [address] [address] [place], [place] | | | | | [place], [place] | [address] | | | | | [address] | | | | | | [phone] | | | +--------+ + + + [...] [place] | | | | | | [address] | | | | | | | | +--------+---------+ + + + | 01/17/ | Office | Cardiology | Brianna Stewart | | | 2019 | Visit | | [address] | | | | | | [address] | | | | | | [place] [address] | | | | | | [phone] | | | | | | | | +--------+---------+ + + + documented as of this encounter Visit Diagnoses Not on filedocumented in this encounter"
--- OUTSIDE RECORDS SUMMARY | ~2019-08-05 | XMS | Encounter Summary ---
Demographics + + + | Address | [address] | | | [place] [address] | + + + | Home Phone | | + + + | Preferred Language | Unknown | + + + | Marital Status | | + + + | Catholic Affiliation | Unknown | + + + [...] Team Providers + +------+ + | Care Compressor Technician Name | Role | Phone | + +------+ + | Luanne Love | PCP | | | PA | | | + +------+ + Encounter Details +--------+ + + + + | Date | Type | Department | Care Team | Description | +--------+ + + + + | 11/11/ | Orders Only | [facility] | Brianna Stewart | 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; | | | | [address] | [address] | Atherosclerotic | | | | [address] | [place] [address] | heart disease of | | | | [place], [place] | [phone] | [place] coronary | | | | [address] | | artery with angina | | | | [phone] | | pectoris (HCC); Old | | | | | | myocardial | | | | | | infarction | +--------+ + + + + Social [...] 2019 | Visit | | [address] [facility] [address] | | | | | | [address] [place] | | | | | | [address] | | | | | | | | +--------+---------+ + + + | 01/17/ | Office | Cardiology | Brianna Stewart | | | 2019 | Visit | | [address] | | | | | | [address] | | | | | | [facility] [place] [address] | | | | | | [phone] | | | | | | | | +--------+---------+ + + + + +------+--------+ + + | Name | Type | Priori | Associated Diagnoses | Order Schedule | | | | ty | | | + +------+--------+ + + | Lipid Panel | Lab | Routin | Mixed | Expected: | | | | e | hyperlipidemia | 02/07/2018, Expires: | | | | | Atherosclerotic | 02/07/2019 | | | | | heart disease of | | | | | | [place] coronary | | | | | | artery with angina | | | | | | pectoris (HCC) Old | | | | | | myocardial | | | | | | infarction | | + +------+--------+ + + documented as of this encounter Visit Diagnoses + + | Diagnosis | + + | Mixed hyperlipidemia | + + | 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
--- OUTSIDE RECORDS SUMMARY | ~2019-08-05 | XMS | Encounter Summary ---
Demographics + + + | Address | [address] | | | [place] [address] | + + + | Home Phone [...] Team Providers + +------+ + | Care Customer Engagement Representative Name | Role | Phone | + [...] MICHELLE KAUFMAN | | | | | [place], [place] | [place] [address] | | | | | [address] | [phone] | | | | | [phone] | | | +--------+ + + + [...] 2020 | Visit | | [address] | | | | | | [address] [place] | | | | | | [address] | | | | | | | | +--------+---------+ + + + | 01/17/ | Office | Cardiology | Brianna Stewart | | | 2019 | Visit | | [address] | | | | | | [place] | | | | | | [place] [address] | | | | | | [phone] | | | | | | | [...] MV A Zack: 0.91 m/s MV Dec Calloway: | | | 3.30 m/s2 MV DecT: 110.08 ms MV E Zack: 0.36 m/s MV E/A Ratio: | | | 0.39 MV PHT: 31.92 ms MVA By PHT: 6.89 cm2 Septal e': | | | 0.02 m/s Septal E/e': 17.87 Director Sanitation Bureau: DBS Authenticated | | | by: [facility] Report Date/Time: 01-27-2018 20:31:19 | | + [...] | | cmLVPWd: 0.48 cmLVOT Area: 3.17 [id number] Diam: 2.01 cm%FS: 13.00 %EF(Teich): | | 27.65 %ESV(Teich): 100.79 mlLVIDs: 4.66 cmSV(Teich): 38.53 mlRVIDd: 2.57 | | cmLAESV(A-L): 31.09 mlLAESV Index (A-L): 19.31 ml/m2LAAs A2C: 11.42 [id number] A-L | | A2C: 27.79 mlLALs A2C: 3.98 cmLAAs A4C: 12.18 [id number] A-L A4C: 33.17 mlLALs | | A4C: 3.80 cmRAAs: 8.87 [id number] A-L: 20.88 mlRAESV MOD: 21.09 mlRALs: 3.19 | | cmTAPSE: 1.39 cmAV maxP.26 mmHgAV meanP.80 mmHgAV Vmax: 1.03 m/Damaris | | Vmean: 0.61 m/Damaris VTI: 18.51 cmAVA Vmax: 1.99 cm2AVA (VTI): 2.59 pl3BFGL (Vmax): | | 0.00 cm2/m2AVAI (VTI): 0.00 cm2/m2LVOT maxP.68 mmHgLVOT meanP.91 | | mmHgLVSI Dopp: 29.78 ml/m2LVSV Dopp: 47.95 mlLVOT Vmax: 0.64 m/sLVOT Vmean: 0.44 | | m/sLVOT VTI: 15.11 cmMV A Zack: 0.91 m/sMV Dec Calloway: 3.30 m/s2MV DecT: 110.08 | | msMV E Zack: 0.36 m/sMV E/A Ratio: 0.39MV PHT: 31.92 msMVA By PHT: 6.89 kg2Mzmfrz | | e': 0.02 m/sSeptal E/e': 17.87 Director Sanitation Bureau: DBSAuthenticated by: Aidan | | [facility]eraReport Date/Time: 01-27-2018 20:31:19 IMPRESSION: 1. The left [...] A Zack: 0.91 m/s | |MV Dec Calloway: 3.30 m/s2 | |MV DecT: 110.08 ms | |MV E Zack: 0.36 m/s | |MV E/A Ratio: 0.39 | |MV PHT: 31.92 ms | |MVA By PHT: 6.89 cm2 | |Septal e': 0.02 m/s | |Septal E/e': 17.87 | | | |Director Sanitation Bureau: DBS | |Authenticated by: Aidan Becker | [...]
--- OUTSIDE RECORDS SUMMARY | ~2019-08-05 | XMS | Encounter Summary ---
Demographics + + + | Address | [address] | | | [place] [address] | + + + | Home Phone | | + + + | Preferred Language | Unknown | + + + | Marital Status | | + + + | Mandaen Affiliation | Unknown | + + + | Race | Unknown | + + + | Ethnic Group | Unknown | + + + Author + + + | Author | [facility] | | | and [place] | + + + | Organization | [facility] | | | [...] Team Providers + +------+ + | Care Basin Cleaner Name | Role | Phone | + +------+ + | Luanne Love | PCP | | | PA | | | + +------+ + Encounter Details +--------+ + + + + | Date | Type | Department | Care Team | Description | +--------+ + + + + | 06/27/ | Orders Only | [facility] | Maxx Buchanan MD | Essential | | 2020 | | NEPHROLOGY [place] | [address] [place] | hypertension | | | | [address] | [address] [place], [place] | (Primary Dx); | | | | [address] | [address] | Chronic kidney | | | | [place], [place] | | disease, stage III | | | | [address] | | (moderate) | | | | [phone] | | | +--------+ + + + [...] | | | | [address] [facility] | | | | | | [address] | | | | | | | | +--------+---------+ + + + | 01/17/ | Office | Cardiology | Brianna Stewart | | | 2019 | Visit | | [address] | | | | | | [place] | | | | | | [place] [address] | | | | | | [phone] | | | | | | | [...]
--- OUTSIDE RECORDS SUMMARY | ~2019-08-05 | XMS | Encounter Summary ---
Demographics + + + | Address | [address] | | | [place] [address] | + + + | Home Phone | | + + + | Preferred Language | Unknown | + + + | Marital Status | | + + + | Taoism Affiliation | Unknown | + + + | Race | Unknown | + + + | Ethnic Group | Unknown | + + + Author + + + | Author | [facility] | | | and [place] | + + + | Organization | [facility] | | | [...] Team Providers + +------+ + | Care Fund Accounting Manager Name | Role | Phone | + +------+ + | Luanne Love | PCP | | | PA | | | + +------+ + Encounter Details +--------+ + + + + | Date | Type | Department | Care Team | Description | +--------+ + + + + | 11/11/ | Orders Only | [facility] | Brianan Stewart | 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; | | | | [address] | [place] [address] | Atherosclerotic | | | | [address] | [place] [address] | heart disease of | | | | [place], [place] | [phone] | [place] coronary | | | | [address] | | artery with angina | | | | [phone] | | pectoris (HCC); Old | | [...] 2019 | Visit | | [address] [facility] [place] | | | | | | [address] [place] | | | | | | [address] | | | | | | | | +--------+---------+ + + + | 01/17/ | Office | Cardiology | Brianna Stewart | | | 2019 | Visit | | [address] | | | | | | [place] | | | | | | [place] [facility] [address] | | | | | | [phone] | | | | | | | [...] of | | | | | | [place] coronary | | | | | | [...] + + | 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
--- OUTSIDE RECORDS SUMMARY | ~2019-08-05 | XMS | Encounter Summary ---
Demographics + + + | Address | [address] | | | [place] [address] | + + + | Home Phone | | + + + | Preferred Language | Unknown | + + + | Marital Status | | + + + | Adventism Affiliation | Unknown | + + + | Race | Unknown | + + + | Ethnic Group | Unknown | + + + Author + + + | Author | [facility] | | | and [place] | + + + | Organization | [facility] | | | [...] Team Providers + +------+ + | Care Regional Agronomist Name | Role | Phone | + +------+ + PCP | Unavailable | + +------+ + Encounter Details +--------+ + + + + | Date | Type | Department | Care Team | Description | +--------+ + + + + | 05/19/ | Hospital | [facility] | Maxx Barker MD | NSTEMI (non-ST | | 2016 - | Encounter | [facility] | [address] | elevated myocardial | | | | CARE FLOOR [address] | [place] [address] | infarction) (FORMERLY [facility]) | | 05/21/ | | JESUS ALBERTO MORA | [phone] | | | 2015 | | [place], [place] | | | | | | [address] | | | | | | [phone] | | | +--------+ + + + [...] Date of Service: 05/21/15 0917 Status: Signed Manager Package: Maxx Barker MD (Physician) [facility] Service: Cardiology Discharge Summary Date of [...] with Dr. Collins as she lives in [place]. Referral to cardiac rehab as an outpatient. [...] are the prescriptions that you need to chart picker. 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 DCP: Home MAKENZIE IMER, Business Programmer [phone] onver joseph Transaction, Provider Unknown - 05/21/2015 10:57 AM PST Nurse Progress Note by Leonie Tapia RN at 05/21/15 1057 Author: Leonie Tapia RN Service: (none) Author Type: Registered Nurse Filed: 05/21/15 1058 Date of Service: 05/21/15 1057 Status: Signed Manager Package: Leonie Tapia RN (Registered Nurse) D/c instructions [...] Date of Service: 05/20/15 1347 Status: Signed Manager Package: Cierra Caban RN (Registered Nurse) 05/20/15 1341 Discharge Planning Evaluation Admitting Diagnosis NSTEMI Readmission [...] y.o., female who lives with spouse in [facility]. She is independent in all [...] 05/19/151811 Date of Service: 05/19/151809 Status: Signed Manager Package: Chapo Coles RN (Registered Nurse) VSS, pt [...] 05/19/151721 Date of Service: 05/19/151721 Status: Signed Manager Package: Damaris Ritter RPH (Pharmacist) Clinical Pharmacy Note - Renal Dose Adjustment Damir Alejandro 84 y.o. 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 Bolus of NS started, pt placed in [...] 2019 | Visit | | [address] [facility] | | | | | | [address] [place] | | | | | | [address] | | | | | | | | +--------+---------+ + + + | 01/17/ | Office | Cardiology | Brianna Stewart | | | 2019 | Visit | | [address] | | | | | | [address] | | | | | | [place] [address] | | | | | | [phone] | | | | | | | [...] EXTERNAL | | | | performed at [facility];[address] | | LAB | | | | [address];[place], [place] | | | | | | [address] | | | | + + + [...] | | | | | | ACUTE RI CKTRP PHONED TO | | | | | | 4RP REINIER Chan AT 0625 BY | | | | | | LJREAD BACK RESULTS | | | | | | VERIFIEDTesting | | | | | | performed at [facility];[address] | | | | | | [address] [facility];[place], [place] | | | | | | [address] | | | | + + + [...] EXTERNAL | | | | performed at [facility];[address] | | LAB | | | | [address];[place] | | | | | | [address] | | | | + + + [...] | | LAB | | | | [facility];[address] [place] [address] | | | | | | [address];[place] [address] | | | | + + + [...] | | | | | | ACUTE RI CALLED NURSING | | | | | | JENNIFER TARIQ AT | | | | | | 09:17 BY EW READ BACK | | | | | | RESULTS VERIFIEDTesting | | | | | | performed at [facility];[address] | | | | | | [address];[place] | | | | | | [address] | | | | + + + [...] EXTERNAL | | | | performed at [facility];[address] | | LAB | | | | [address];[place] | | | | | | [address] | | | | + + + [...] | | | ------REPORT ADDENDED------ INDICATIONS Acute RI / Wall | | | motion abnormailty [...] 0.45 m/s TV | | | Dec [place]: 2.68 m/s2 TV Dec Time: 257.33 ms TV E Zack: 0.69 | | | m/s TV E/A Ratio: 1.50 Public Health Nurse: Authenticated by: Maxx | | | Malini DONOHUE Report Date/Time: 05-21-2015 09:31:01 | | + + + + + | Procedure Note | + + | Rogers Haddad - 11/10/2018 5:37 PM PDT Patient Name: ROGERS ALEJANDROEli of | | : 1930 Performing Physician: Maxx Barker | | MD ------REPORT | | ADDENDED------INDICATIONS Acute RI / Wall motion abnormailty | | CONCLUSIONS [...] mlLAESV Index (A-L): 26.86 ml/m2LAAs A2C: 14.91 [id number] A-L | | A2C: 42.94 mlLALs A2C: 4.39 cmLAAs A4C: 13.05 [id number] A-L A4C: 31.55 mlLALs | | A4C: [...] Vmax: 2.19 cm2AVA (VTI): | | 2.30 if2MZND Dopp: 4.35 l/qusp2YGAB Dopp: 6.09 l/minHR: 71.65 BPMLVOT maxPG: | [...] 0.82 m/sTV A Zack: 0.45 m/sTV Dec [place]: 2.68 | | m/s2TV Dec Time: 257.33 msTV E Zack: 0.69 m/sTV E/A Ratio: 1.50 Public Health Nurse: | | ASAuthenticated by: Maxx Ordazqaisi MDReport [...] A Zack: 0.45 m/s | |TV Dec [place]: 2.68 m/s2 | |TV Dec Time: 257.33 ms | |TV E Zack: 0.69 m/s | |TV E/A Ratio: 1.50 | | | |Public Health Nurse: | |Authenticated by: Maxx Barker MD | [...] | | | | | performed at [facility];[address] | | | | | | [address];[place], [place] | | | | | | [address] | | | | + + + [...] EXTERNAL | | | | performed at [facility];[address] | K/uL | LAB | | | | [address];[place] | | | | | | [address] | | | | + + + + + + | Red Blood | 3.27 (L)Comment: Testing | 3.70 - 5.10 | EXTERNAL | | | Cells | performed at [facility];[address] | M/uL | LAB | | | Counted | [address];[place] | | | | | | [address] | | | | + + + + + + | Hemoglobin | 8.7 (L)Comment: Testing | 11.3 - 15.5 | EXTERNAL | | | | performed at [facility];[address] | g/dL | LAB | | | | [address];[place] | | | | | | [address] | | | | + + + + + + | Hematocrit, | 27.8 (L)Comment: Testing | 34.0 - 46.0 % | EXTERNAL | | | POC | performed at [facility];[address] | | LAB | | | | [address];[place] | | | | | | [address] | | | | + + + + + + | MCV | 84.9Comment: Testing | 80.0 - 100.0 fl | EXTERNAL | | | | performed at [facility];[address] | | LAB | | | | [address];[place] | | | | | | [address] | | | | + + + + + + | MCH | 26.7 (L)Comment: Testing | 27.0 - 34.0 pg | EXTERNAL | | | | performed at [facility];[address] | | LAB | | | | [address];[place] | | | | | | [address] | | | | + + + + + + | MCHC | 31.5 (L)Comment: Testing | 32.0 - 35.5 | EXTERNAL | | | | performed at [facility];[address] | g/dL | LAB | | | | [address];[place] | | | | | | [address] | | | | + + + + + + | RDW-CV | 46.8Comment: Testing | 37 - 53 fl | EXTERNAL | | | | performed at [facility];[address] | | LAB | | | | [address];[place] | | | | | | [address] | | | | + + + + + + | Platelet | 207Comment: Testing | 150 - 400 K/uL | EXTERNAL | | | Count | performed at [facility];[address] | | LAB | | | Plasma | [address];[place] | | | | | | [address] | | | | + + + + + + | MPV | 8.1Comment: Testing | fl | EXTERNAL | | | | performed at [facility];[address] | | LAB | | | | [address];[place] | | | | | | [address] | | | | + + + + + + | Differentia | AUTOMATEDComment: | | EXTERNAL | | | l Type | Testing performed at | | LAB | | | | [facility];[address];[place] [address] | | | | + + + + + + | % Segmented | 73.07Comment: Testing | % | EXTERNAL | | | | performed at [facility];[address] | | LAB | | | Neutrophils | [address];[place] | | | | | | [address] | | | | + + + + + + | % | 15.96Comment: Testing | % | EXTERNAL | | | Lymphocytes | performed at [facility];[address] | | LAB | | | | [address];[place] | | | | | | [address] | | | | + + + + + + | % Monocytes | 9.56Comment: Testing | % | EXTERNAL | | | | performed at [facility];[address] | | LAB | | | | [address];[place] | | | | | | [address] | | | | + + + + + + | % | 1.00Comment: Testing | % | EXTERNAL | | | Eosinophils | performed at [facility];[address] | | LAB | | | | [address];[place] | | | | | | [address] | | | | + + + + + + | % Basophils | 0.41Comment: Testing | % | EXTERNAL | | | | performed at [facility];[address] | | LAB | | | | [address];[place] | | | | | | [address] | | | | + + + + + + | Absolute | 5.60Comment: Testing | 1.90 - 7.40 | EXTERNAL | | | Segmented | performed at [facility];[address] | K/uL | LAB | | | Neutrophils | [address];[place] | | | | | | [address] | | | | + + + + + + | Absolute | 1.22Comment: Testing | 1.00 - 3.90 | EXTERNAL | | | Lymphocytes | performed at [facility];[address] | K/uL | LAB | | | | [address];[place] | | | | | | [address] | | | | + + + + + + | Absolute | 0.73Comment: Testing | 0.00 - 0.80 | EXTERNAL | | | Monocytes | performed at [facility];[address] | K/uL | LAB | | | | [address];[place] | | | | | | [address] | | | | + + + + + + | Absolute | 0.08Comment: Testing | 0.00 - 0.50 | EXTERNAL | | | Eosinophils | performed at [facility];[address] | K/uL | LAB | | | | [address];[place] | | | | | | [address] | | | | + + + + + + | Absolute | 0.03Comment: Testing | 0.00 - 0.10 | EXTERNAL | | | Basophils | performed at [facility];[address] | K/uL | LAB | | | | [address];[place], [place] | | | | | | [address] | | | | + + + [...] + | Historically converted procedure from [facility] environment | EXTERNAL LAB | + + [...] at | | | | | | [facility];[address] | | | | | | [facility];[place], [place] | | | | | | [id number] ON 05/20 | | | | | [...] EXTERNAL | | | | performed at [facility];[address] | | LAB | | | | [address];[place], [place] | | | | | | [address] | | | | + + + [...] EXTERNAL | | | | performed at [facility] | | LAB | | | | [address];[place], [place] | | | | | | [address] | | | | + + + [...] | | | | | [place] [address] | | | | + + + + + + | Triglycerid | 216 (H)Comment: Testing | mg/dL | EXTERNAL | | | es | performed at [facility], [address] | | LAB | | | | [address], | | | | | | [place] [address] | | | | + + + + + + | HDL | 37 (L)Comment: Testing | mg/dL | EXTERNAL | | | | performed at [facility], [address] | | LAB | | | [address], | | | | | | [place] [address] | | | | + + + + + + | LDL, | 59Comment: Testing | mg/dL | EXTERNAL | | | Calculated | performed at [facility], [address] | | LAB | | | | [address], | | | | | | [place] [address] | | | | + + + [...] EXTERNAL | | | | performed at [facility];[address] | mmol/L | LAB | | | | [address];[place] | | | | | | [address] | | | | + + + + + + | K | 4.3Comment: Testing | 3.5 - 4.9 | EXTERNAL | | | | performed at [facility];[address] | mmol/L | LAB | | | | [address];[place] | | | | | | [address] | | | | + + + + + + | Cl | 113 (H)Comment: Testing | 99 - 109 mmol/L | EXTERNAL | | | | performed at [facility];[address] | | LAB | | | | [address];[place] | | | | | | [address] | | | | + + + + + + | CO2 | 24Comment: Testing | 23 - 32 mmol/L | EXTERNAL | | | | performed at [facility];[address] | | LAB | | | | [address];[place] | | | | | | [address] | | | | + + + + + + | Anion Gap | 10Comment: Testing | 5 - 20 mmol/L | EXTERNAL | | | | performed at [facility];[address] | | LAB | | | | [address];[place] | | | | | | [address] | | | | + + + + + + | Glucose, | 85Comment: Testing | 65 - 99 mg/dL | EXTERNAL | | | Fasting | performed at [facility];[address] | | LAB | | | | [address];[place] | | | | | | [address] | | | | + + + + + + | BUN | 19Comment: Testing | 8 - 25 mg/dL | EXTERNAL | | | | performed at [facility];[address] | | LAB | | | | [address];[place] | | | | | | [address] | | | | + + + + + + | Creatinine | 1.2 (H)Comment: Testing | 0.50 - 1.00 | EXTERNAL | | | | performed at [facility];[address] | mg/dL | LAB | | | | [address];[place] | | | | | | [address] | | | | + + + + + + | BUN/Creatin | 16Comment: Testing | | EXTERNAL | | | ine Ratio | performed at [facility];[address] | | LAB | | | | [address];[place] | | | | | | [address] | | | | + + + + + + | Calcium | 7.1 (L)Comment: Testing | 8.5 - 10.5 | EXTERNAL | | | | performed at [facility];[address] | mg/dL | LAB | | | | [address];[place] | | | | | | [address] | | | | + + + [...] | | | | | | at [facility];[address] | | [address];[place] [address] | | | | + + + [...] | | LAB | | | | [facility];[address];[place] [address] | | | | + + + [...] | | | | | | ACUTE RI RESULT READ | | | | | | BACK BY:MARK Lackey/JR ON | | | | | | [id number] AT 0051, | | | | | | VAPTesting performed at | | | | | | [facility];[address] [facility] | | | | | | [facility];[place] [address] | | | | + + + [...] EXTERNAL | | | | performed at [facility];[address] | | LAB | | | | [address];[place], [place] | | | | | | [address] | | | | + + + [...] [address];[place] [address] | | | | + + + [...] | | | | | | ACUTE RI CALLED TO | | | | | | ZEN Barros ON 4RP AT 1920 | | | | | | BY CD, READ BACKTesting | | | | | | performed at [facility];[address] | | | | | | [facility];[place], [place] | | | | | | [address] | | | | + + + [...] EXTERNAL | | | | performed at [facility];[address] | | LAB | | | | [address];[place] | | | | | | [address] | | | | + + + [...] + + | Historically converted procedure from [facility] | EXTERNAL LAB | + + + [...] radial artery canalized with | | | 6-Spanish cylinder sheath. 2.5 mg verapamil, 200 mcg nitroglycerin, | | | 5000 international units of heparin was given through the sheath. | | | Over 260 exchange wire, 5-Spanish FL4 diagnostic catheter advanced to | | | the ascending aorta to selectively engage the left main. Contrast was | | | injected. Selective angiogram for the left main, LAD, left | | | circumflex artery performed in different views. Over the guidewire, | | | it was exchanged for a 5-Spanish FR-4 diagnostic catheter addressed to | | [...] exchanged | | | for RC-4 SC 6-Spanish guide that selectively engaged the RCA. A [...] 1% lidocaine. Right radial artery canalized with 6-Spanish cylinder | | sheath. 2.5 mg verapamil, 200 mcg nitroglycerin, 5000 international units | | of heparin was given through the sheath. Over 260 exchange wire, 5-Spanish | | FL4 diagnostic catheter advanced to the ascending aorta to selectively | | engage the left main. Contrast was injected. Selective angiogram for the | | left main, LAD, left circumflex artery performed in different views. Over | | the guidewire, it was exchanged for a 5-Spanish FR-4 diagnostic catheter | | addressed to [...] the catheter was exchanged for RC-4 SC 6-Spanish guide | | that selectively engaged the [...] radial artery canalized with | | | 6-Spanish cylinder sheath. 2.5 mg verapamil, 200 mcg nitroglycerin, | | | 5000 international units of heparin was given through the sheath. | | | Over 260 exchange wire, 5-Spanish FL4 diagnostic catheter advanced to | | | the ascending aorta to selectively engage the left main. Contrast was | | | injected. Selective angiogram for the left main, LAD, left | | | circumflex artery performed in different views. Over the guidewire, | | | it was exchanged for a 5-Spanish FR-4 diagnostic catheter addressed to | | [...] exchanged | | | for RC-4 SC 6-Spanish guide that selectively engaged the RCA. A [...] 1% lidocaine. Right radial artery canalized with 6-Spanish cylinder | | sheath. 2.5 mg verapamil, 200 mcg nitroglycerin, 5000 international units | | of heparin was given through the sheath. Over 260 exchange wire, 5-Spanish | | FL4 diagnostic catheter advanced to the ascending aorta to selectively | | engage the left main. Contrast was injected. Selective angiogram for the | | left main, LAD, left circumflex artery performed in different views. Over | | the guidewire, it was exchanged for a 5-Spanish FR-4 diagnostic catheter | | addressed to [...] the catheter was exchanged for RC-4 SC 6-Spanish guide | | that selectively engaged the [...] | | | Clotting | performed at [facility];[address] | seconds | LAB | | | time, POC | [address];[place] | | | | | | [address] | | | | + + + [...] | | | Clotting | performed at [facility];[address] | seconds | LAB | | | time, POC | [address];[place], [place] | | | | | | [address] | | | | + + + [...] - 11/10/2018 5:37 PM PDT DAMIR Garcia [facility]/[id number] yearsXR CHEST | | 1 VIEW05/19/2015 1:13 [...] | | | | | performed at [facility];[address] | | | | | | [address];[place], [place] | | | | | | [address] | | | | + + + [...] | | | | | performed at [facility];[address] | | | | | | [address];[place], [place] | | | | | | [address] | | | | + + + [...] EXTERNAL | | | | performed at [facility];[address] | mmol/L | LAB | | | | [address];[place] | | | | | | [address] | | | | + + + + + + | K | 4.4Comment: Testing | 3.5 - 4.9 | EXTERNAL | | | | performed at [facility];[address] | mmol/L | LAB | | | | [address];[place] | | | | | | [address] | | | | + + + + + + | Cl | 105Comment: Testing | 99 - 109 mmol/L | EXTERNAL | | | | performed at [facility];[address] | | LAB | | | | [address];[place] | | | | | | [address] | | | | + + + + + + | CO2 | 26Comment: Testing | 23 - 32 mmol/L | EXTERNAL | | | | performed at [facility];[address] | | LAB | | | | [address];[place] | | | | | | [address] | | | | + + + + + + | Anion Gap | 12Comment: Testing | 5 - 20 mmol/L | EXTERNAL | | | | performed at [facility];[address] | | LAB | | | | [address];[place] | | | | | | [address] | | | | + + + + + + | Glucose, | 95Comment: Testing | 65 - 99 mg/dL | EXTERNAL | | | Fasting | performed at [facility];[address] | | LAB | | | | [address];[place] | | | | | | [address] | | | | + + + + + + | BUN | 24Comment: Testing | 8 - 25 mg/dL | EXTERNAL | | | | performed at [facility];[address] | | LAB | | | | [address];[place] | | | | | | [address] | | | | + + + + + + | Creatinine | 1.5 (H)Comment: Testing | 0.50 - 1.00 | EXTERNAL | | | | performed at [facility];[address] | mg/dL | LAB | | | | [address];[place] | | | | | | [address] | | | | + + + + + + | BUN/Creatin | 16Comment: Testing | | EXTERNAL | | | ine Ratio | performed at [facility];[address] | | LAB | | | | [address];[place] | | | | | | [address] | | | | + + + + + + | Calcium | 8.2 (L)Comment: Testing | 8.5 - 10.5 | EXTERNAL | | | | performed at [facility];888 | mg/dL | LAB | | | | [address];[place] | | | | | | [address] | | | | + + + [...] | | | | | | at [facility];[address] [place] [address] | | | | | | [facility];[place] [address] | | | | + + + [...] (500), | | | | | | editor sound Bonnie Sánchez | | | | | | (15) on 05/19/2015 | | | | | | 4:21:25 PM | | | | + + + + + + + + | Specimen | + + | | + + + + + | Narrative | Performed At | + + + | Historically converted procedure from [facility] Epic environment | EXTERNAL LAB | + [...]
--- OUTSIDE RECORDS SUMMARY | ~2019-08-05 | XMS | Encounter Summary ---
Demographics + + + | Address | [address] | | | [place] [address] | + + + | Home Phone | | + + + | Preferred Language | Unknown | + + + | Marital Status | | + + + | Moravian Affiliation | Unknown | + + + | Race | Unknown | + + + | Ethnic Group | Unknown | + + + Author + + + | Author | [facility] | | | and [place] | + + + | Organization | [facility] | | | [...] Team Providers + +------+ + | Care Hydro Station Operator Name | Role | Phone | + +------+ + | Luanne Love | PCP | | | PA | | | + +------+ + Encounter Details +--------+ + + + + | Date | Type | Department | Care Team | Description | +--------+ + + + + | 07/06/ | Orders Only | [facility] | Brianna Stewart | | | 2018 | | CARDIOLOGY PATT | Stefani, EXECUTIVE [address] | | | | | [address] | [address] | | | | | [address] | [place] [address] | | | | | [place] | [phone] | | | | | [address] | | | | | | [phone] | | | +--------+ + + + [...] [place] | | | | | | [address] | | | | | | | | +--------+---------+ + + + | 01/17/ | Office | Cardiology | Brianna Stewart | | | 2019 | Visit | | [address] | | | | | | [address] | | | | | | [place] [address] | | | | | | [phone] | | | | | | | | +--------+---------+ + + + documented as of this encounter Visit Diagnoses Not on filedocumented in this encounter"
--- OUTSIDE RECORDS SUMMARY | ~2019-08-05 | XMS | Encounter Summary ---
Demographics + + + | Address | [address] | | | [place] [address] | + + + | Home Phone [...] Team Providers + +------+ + | Care Hotel Lobby Concierge Name | Role | Phone | + [...] | | | | [place], [place] | [phone] | | | | | [address] | | | | | | [phone] | | | +--------+ + + + [...] 2020 | Visit | | [address] [facility] | | | | | | [address] [place], [place] | | | | | | [address] | | | | | | | | +--------+---------+ + + + | 01/17/ | Office | Cardiology | Brianna Stewart | | | 2019 | Visit | | [address] | | | | | | [address] | | | | | | [place] [address] | | | | | | [phone] | | | | | | | | +--------+---------+ + + + documented as of this encounter Visit Diagnoses Not on filedocumented in this encounter"
--- OUTSIDE RECORDS SUMMARY | ~2019-08-05 | XMS | Encounter Summary ---
Demographics + + + | Address | [address] | | | [place] [address] | + + + | Home Phone | | + + + | Preferred Language | Unknown | + + + | Marital Status | | + + + | Sikhism Affiliation | Unknown | + + + [...] Team Providers + +------+ + | Care Ditcher Name | Role | Phone | + +------+ + | Luanne Love | PCP | | | PA | | | + +------+ + Encounter Details +--------+ + + + + | Date | Type | Department | Care Team | Description | +--------+ + + + + | 05/19/ | Orders Only | [facility] | Conversion | | | 2016 | | CONVERSION DEP [address] | Transaction, | | | | | [address] | Provider Unknown | | | | | [place], [place] | [phone] | | | | | [address] | | | | | | [phone] | | | +--------+ + + + [...] 2020 | Visit | | [address] [facility] | | | | | | [address] | | | | | | [address] | | | | | | | | +--------+---------+ + + + | 01/17/ | Office | Cardiology | Brianna Stewart | | | 2019 | Visit | | [address] | | | | | | [address] | | | | | | [place] [address] | | | | | | [phone] | | | | | | | | +--------+---------+ + + + documented as of this encounter Visit Diagnoses Not on filedocumented in this encounter"
--- OUTSIDE RECORDS SUMMARY | ~2019-08-05 | XMS | Encounter Summary ---
Demographics + + + | Address | [address] | | | [place] [address] | + + + | Home Phone | | + + + | Preferred Language | Unknown | + + + | Marital Status | | + + + | Zoroastrian Affiliation | Unknown | + + + [...] Team Providers + +------+ + | Care Multi Media Specialist Name | Role | Phone | [...] | | | | [place], [place] | [phone] | | | | | [address] | | | | | | [phone] | | | +--------+ + + + [...] 2020 | Visit | | [address] [facility] | | | | | | [address] | | | | | | [address] | | | | | | | | +--------+---------+ + + + | 01/17/ | Office | Cardiology | Brianna Stewart | | | 2019 | Visit | | [address] | | | | | | [address] | | | | | | [place] [address] | | | | | | [phone] | | | | | | | | +--------+---------+ + + + documented as of this encounter Visit Diagnoses Not on filedocumented in this encounter"
--- OUTSIDE RECORDS SUMMARY | ~2019-08-05 | XMS | Clinical Summary ---
Demographics + + + | Address | [address] | | | [place] [address] | + + + | Home Phone | | + + + | Preferred Language | Unknown | + + + | Marital Status | | + + + | Mandaeism Affiliation | Unknown | + + + | Race | Unknown | + + + | Ethnic Group | Unknown | + + + Author + + + | Author | [facility] (Historical as of | | | 11-12-18) | + + + | Organization | [facility] (Historical as of | | | 11-12-18) [...] Team Providers + +------+ + | Care Unloader Name | Role | Phone | + [...] | Heart | SCIENTIFIC | | | /[id number] | | Qty: 1 on 05/19/2015 by | | | [employer] | | | 322 | | Maxx Nayak MD | | | | | | | + +-------+-------+ +--------+--------+--------+ | Promus | Stent | N/A: | [place] | | | / | | Premier-05/19/2015Implanted: | | Heart | SCIENTIFIC | | | /[id number] | | Qty: 1 on 05/19/2015 by | | | [employer] | | | 944 | | Maxx [...] +------+-------+ + | MEDICARE | MEDICA | [id number] | | | [address] | | | RE | | | | [place] [address] | | | IP-OP | | | | | + +--------+ +------+-------+ + | COMMERCIAL OTHER | COMMER | [id number] | | | | | | CIAL [...] | manuel | | | [phone] | [phone] | + +--------+ +--------+ + +
--- OUTSIDE RECORDS SUMMARY | ~2019-08-05 | XMS | Encounter Summary ---
Demographics + + + | Address | [address] | | | [place] [address] | + + + | Home Phone | | + + + | Preferred Language | Unknown | + + + | Marital Status | | + + + | Adventism Affiliation | Unknown | + + + | Race | Unknown | + + + | Ethnic Group | Unknown | + + + Author + + + | Author | [facility] | | | and [place] | + + + | Organization | [facility] | | | and [...] Team Providers + +------+ + | Care Rn Quality Name | Role | Phone | + [...] | | | [address] | [place] [address] | | | | | [place] [address] | | | | | | [phone] | | | +--------+ + + + [...] 2020 | Visit | | [address] [facility] | | | | | | [address] [place] | | | | | | [address] | | | | | | | | +--------+---------+ + + + | 01/17/ | Office | Cardiology | GreggluizBrianna gardner | | | 2019 | Visit | | [address] | | | | | | [address] [address] | | | | | | [facility] [address] | | | | | | [phone] | | | | | | | [...]
--- OUTSIDE RECORDS SUMMARY | ~2019-08-05 | XMS | Encounter Summary ---
Demographics + + + | Address | [address] | | | [place] [address] | + + + | Home Phone | | + + + | Preferred Language | Unknown | + + + | Marital Status | | + + + | Zoroastrianism Affiliation | Unknown | + + + [...] Team Providers + +------+ + | Care Camp Manager Name | Role | Phone | + +------+ + | Luanne Love | PCP | | | PA | | | + +------+ + Encounter Details +--------+ + + + + | Date | Type | Department | Care Team | Description | +--------+ + + + + | 08/11/ | Orders Only | [facility] | Brianna Stewart | | | 2019 | | CARDIOLOGY PATT | [address] | | | | | [address] | [address] | | | | | [address] | [place] [address] | | | | | [place] | [phone] | | | | | [address] | | | | | | [phone] | | | +--------+ + + + [...] [place] | | | | | | [address] | | | | | | | | +--------+---------+ + + + | 01/17/ | Office | Cardiology | Brianna Stewart | | | 2019 | Visit | | [address] | | | | | | [address] | | | | | | [place] [address] | | | | | | [phone] | | | | | | | | +--------+---------+ + + + documented as of this encounter Visit Diagnoses Not on filedocumented in this encounter"
--- OUTSIDE RECORDS SUMMARY | ~2019-08-05 | XMS | Encounter Summary ---
Demographics + + + | Address | [address] | | | [place] [address] | + + + | Home Phone | | + + + | Preferred Language | Unknown | + + + | Marital Status | | + + + | Mormon Affiliation | Unknown | + + + [...] Team Providers + +------+ + | Care Railroad Track Mechanic Name | Role | Phone | + +------+ + | Luanne Love | PCP | | | PA | | | + +------+ + Encounter Details +--------+ + + + + | Date | Type | Department | Care Team | Description | +--------+ + + + + | 05/21/ | Orders Only | [facility] | Maxx Nayak MD | | | 2015 | | CARDIOLOGY [place] | [address] | | | | | [address] | [place] [address] | | | | | [place], [place] | [phone] | | | | | [address] | | | | | | [phone] | | | +--------+ + + + [...] [address] | | | | | | [address] | | | | | | | | +--------+---------+ + + + | 01/17/ | Office | Cardiology | Brianna Stewart | | | 2019 | Visit | | [address] | | | | | | [address] | | | | | | [place] [address] | | | | | | [phone] | | | | | | | | +--------+---------+ + + + documented as of this encounter Visit Diagnoses Not on filedocumented in this encounter"
--- OUTSIDE RECORDS SUMMARY | ~2019-08-05 | XMS | Encounter Summary ---
Demographics + + + | Address | [address] | | | [place] [address] | + + + | Home Phone [...] Team Providers + +------+ + | Care Life Science Technician Name | Role | Phone | + +------+ + | Luanne Love | PCP | | | PA | | | + +------+ + Encounter Details +--------+ + + + + | Date | Type | Department | Care Team | Description | +--------+ + + + + | 09/09/ | Orders Only | [facility] | Aidan Becker, | | | 2018 | | CARDIOLOGY [place] | [address] | | | | | [address] | [place] [address] [place], [place] | | | | | [place], [place] | [address] | | | | | [address] | | | | | | [phone] | | | +--------+ + + + [...] [address] | | | | | | [address] | | | | | | | | +--------+---------+ + + + | 01/17/ | Office | Cardiology | Brianna Stewart | | | 2019 | Visit | | [address] | | | | | | [address] | | | | | | [place] [address] | | | | | | [phone] | | | | | | | | +--------+---------+ + + + documented as of this encounter Visit Diagnoses Not on filedocumented in this encounter"
--- OUTSIDE RECORDS SUMMARY | ~2019-08-05 | XMS | Clinical Summary ---
Demographics + + + | Address | [address] | | | [place] [address] | + + + | Home Phone | | + + + | Preferred Language | Unknown | + + + | Marital Status | | + + + | Restorationist Affiliation | Unknown | + + + [...] Team Providers + +------+ + | Care Explosives Handler Name | Role | Phone | [...] mcg by | | 0 | | 04/1 | Disco | | (SYNTHROID) 137 mcg | mouth Daily. | | | | 620 | ntinu | | tablet | | | | | 20 | ed | | | | | | | | (Ther | | | | | | | | apy | | | | | | | | compl | | | | | | | | eted) | + + + +---------+------+------+-------+ | ondansetron | Take 4 mg by mouth | | 0 | | 04/1 | Disco | | (ZOFRAN ODT) 4 mg | every 8 hours as | | | | 6/20 | ntinu | | disintegrating | needed for Nausea. | | | | 20 | ed | | tablet | | | | | | (Sheree | | | | | | | | ent | | | | | | | | Not | | | | | | | | Takin | | | | | | | | g) | + + + +---------+------+------+-------+ | sucralfate | Take 1 g by mouth 4 | | 0 | | 04/1 | Disco | | (CARAFATE) 1 g | times daily. | | | | 6/20 | ntinu | | tablet | | | | | 20 | ed | | | | | | | | (Sheree | | | | | | | | ent | | | | | | | | Not | | | | | | | | Takin | | | | | | | | g) | + + + +---------+------+------+-------+ Active Problems [...] Buchanan MD | Chronic kidney | | 2019 | Visit | | | disease, stage [...] | 08/03/ | Documentati | Nephrology | Rogelio | Jacoby (08/04/19) | | 2020 | on | | Ariana, Medical | | | | | | Intervention Teacher | | +--------+ + + + + | 07/12/ | Office | Cardiology | Brianna Stewart | Coronary artery | | 2020 | Visit | | [address] | disease involving | | | | | | red cliff coronary | | | | | | artery of red cliff | | | | | | heart [...] (moderate) | +--------+ + + + + | 05/15/ | Office | Cardiology | Reese Brianna | Coronary artery | | 2020 | Visit | | [address] | disease involving | | | | | | red cliff coronary | | | | | | artery of red cliff | | | | | | heart [...] | | | | unspecified type | +--------+ + + + + from [...] 2019 | Visit | | [address] [facility] | | | | | | [address] | | | | | | [address] | | | | | | | | +--------+---------+ + + + | 01/17/ | Office | Cardiology | Brianna Stewart | | | 2020 | Visit | | [address] | | | | | | [address] | | | | | | [place] [address] | | | | | | [phone] | | | | | | | [...] + + + + | Vaccine: | 07/17/199 | | | | Pneumococcal 65+ (1 [...] the | | | | PDT | red cliff coronary | results section. | | | | | artery of red cliff | | | | | | heart [...] + + from Last 3 Months Results CBC with Manual Differential (08/04/2019) + [...] | | | | | BRIANNA TOBAR ([id number]) on | | | | | | [...] | | | + +---------+ + + LABS - EXTERNAL SCAN (07/03/2019 12:00 AM PDT) + + + | Narrative | Performed At | + + + | Ordered by an | | | unspecified provider. | | + + + from Last 3 Months Insurance [...] +--------+ +---------+--------+ | MEDICARE | MEDICA | [id number] | 09/26/18 | [phone] | | Medica | | | RE | | 98-Pre | 5 | | re | | | PART A | | sent | | | | | | AND B | | | | | | + +--------+ +--------+ +---------+--------+ | [place] | AMERIC | [id number] | | [phone] | | Indemn | [...] +--------+ +---------+--------+ | MEDICARE | MEDICA | [id number] | 09/26/18 | [phone] | | Medica | | | RE | | 98-Pre | 5 | | re | | | PART A | | sent | | | | | | AND B | | | | | | + +--------+ +--------+ +---------+--------+ | MEDICARE SUPPLEMENT | MEDICA | [id number] | 09/27/19 | [phone] | | Indemn [...] [place] | | | 4 (Home) | [address] | + +--------+ +--------+ + + | Shoaib Juarez | Person | Self | [birth year] | [address] | | | al/Fam | | 1931 | [phone] | [place], [place] | | | manuel | | | 4 (Home) | [address] | + +--------+ +--------+ + + Advance Directives + + + + + | Type | Date Recorded | Patient | Explanation | | | | Filling Hauler | | + + + + + | Power of | | | | | Regulatory Product Manager | | | | + + + + + | Advance | | | | | Directive | | | | + + + + +
--- OUTSIDE RECORDS SUMMARY | ~2019-08-05 | XMS | Encounter Summary ---
Demographics + + + | Address | [address] | | | [place] [address] | + + + | Home Phone | | + + + | Preferred Language | Unknown | + + + | Marital Status | | + + + | Mormon Affiliation | Unknown | + + + | Race | Unknown | + + + | Ethnic Group | Unknown | + + + Author + + + | Author | [facility] | | | and [place] | + + + | Organization | [facility] | | | [...] Team Providers + +------+ + | Care Bolt Cutter Name | Role | Phone | [...] 08/03/ | Documentati | [facility] | Mercaod, | Results (08/04/19) | | 2020 | on | NEPHROLOGY MAR[place] | [facility] | | | | | [address] | Communications Systems Engineer | | | | | [address] [facility] [place] | | | | | | [address] | | | | | | [phone] | | | +--------+ + + + [...] 2019 | Visit | | [address] [facility] | | | | | | [address] [place], [place] | | | | | | [address] | | | | | | | | +--------+---------+ + + + | 01/17/ | Office | Cardiology | Brianna Stewart | | | 2020 | Visit | | [address] | | | | | | [address] | | | | | | [place] [address] | | | | | | [phone] | | | | | | | [...]
--- OUTSIDE RECORDS SUMMARY | ~2019-08-05 | XMS | Clinical Summary ---
Demographics + + + | Address | [address] | | | [place] [address] | + + + | Home Phone | | + + + | Preferred Language | Unknown | + + + | Marital Status | | + + + | Scientology Affiliation | Unknown | + + + | Race | Unknown | + + + | Ethnic Group | Unknown | + + + Author + + + | Author | [facility] | | | and [place] | + + + | Organization | [facility] | | | [...] Team Providers + +------+ + | Care Striper Name | Role | Phone | + [...] tablet | | | | | | (Shreee | | | | | | | [...] Medical | | | | | | Pick Up Driver | | +--------+ + + + + | 07/12/ | Office | Cardiology | Brianna Stewart | Coronary artery | | 2020 | Visit | | [address] | disease involving | | | | | | knik coronary | | | | | | artery of knik | | | | | | heart [...] involving | | | | | | knik coronary | | | | | | artery of knik | | | | | | heart [...] 2019 | Visit | | [address] [facility] | | | | | | [address] | | | | | | [address] | | | | | | | | +--------+---------+ + + + | 01/17/ | Office | Cardiology | Brianna Stewart | | | 2020 | Visit | | [address] | | | | | | [address] | | | | | | [place] [address] | | | | | | [phone] | | | | | | | [...] the | | | | PDT | knik coronary | results section. | | | | | artery of knik | | | | | | heart [...] | | | | | BRIANNA TOBAR ([id number]) on | | | | | | [...] +--------+ +---------+--------+ | MEDICARE | MEDICA | [id number] | 09/26/18 | [phone] | | Medica | | | RE | | 98-Pre | 5 | | re | | | PART A | | sent | | | | | | AND B | | | | | | + +--------+ +--------+ +---------+--------+ | [place] | AMERIC | [id number] | | [phone] | | Indemn | [...] +--------+ +---------+--------+ | MEDICARE | MEDICA | [id number] | 09/26/18 | [phone] | | Medica | | | RE | | 98-Pre | 5 | | re | | | PART A | | sent | | | | | | AND B | | | | | | + +--------+ +--------+ +---------+--------+ | MEDICARE SUPPLEMENT | MEDICA | [id number] | 09/27/19 | [phone] | | Indemn [...] + +--------+ +--------+ + + | Shoaib Juraez | Person | Self | [birth year] | [address] | | | al/Fam | | 1931 | [phone] | [place], [place] | | | manuel | | | 4 (Home) | [address] | + +--------+ +--------+ + + | Shoaib Juarez | Person | Self | [birth year] | [address] | | | al/Fam | | 1931 | [phone] | [place], [place] | | | manuel | | | 4 (Home) | [address] | + +--------+ +--------+ + + Advance Directives + + + + + | Type | Date Recorded | Patient | Explanation | | | | Nurse Prn | | + + + + + | Power of | | | | | Barrel Rifler | | | | + + + + + | Advance | | | | | Directive | | | | + + + + +
--- OUTSIDE RECORDS SUMMARY | ~2019-08-05 | XMS | Encounter Summary ---
Demographics + + + | Address | [address] | | | [place] [address] | + + + | Home Phone [...] + | Author | [facility] | | | and [place] | + + + | Organization | [facility] | | | and [...] Team Providers + +------+ + | Care Sheriff Deputy Name | Role | Phone | + [...] + + | 08/03/ | Documentati | [facility] | Mercado, | Results (08/04/19) | | 2020 | on | NEPHROLOGY [place] | [facility] | | | | | [address] | Phototypesetting Equipment Monitor | | | | | [address] [facility] [place] | | | | | | [address] | | | | | | [phone] | | | +--------+ + + + [...] 2019 | Visit | | [address] [facility] | | | | | | [address] [place], [place] | | | | | | [address] | | | | | | | | +--------+---------+ + + + | 01/17/ | Office | Cardiology | Brianna Stewart | | | 2020 | Visit | | [address] | | | | | | [address] | | | | | | [place] [address] | | | | | | [phone] | | | | | | | [...]
--- OUTSIDE RECORDS SUMMARY | ~2019-08-05 | XMS | Encounter Summary ---
Demographics + + + | Address | [address] | | | [place] [address] | + + + | Home Phone | | + + + | Preferred Language | Unknown | + + + | Marital Status | | + + + | Episcopalian Affiliation | Unknown | + + + | Race | Unknown | + + + | Ethnic Group | Unknown | + + + Author + + + | Author | [facility] | | | and [place] | + + + | Organization | [facility] | [...] Team Providers + +------+ + | Care Vegetable Preparer Name | Role | Phone | + [...] | | | | | artery | [employer] [employer]INE [employer]PERATOR [address] | | | | | | disease | [address] | | | | | | involving | [place] | | | | | | [place] | [place] | | | | | | coronary | [address] | | | | | | artery of | Phone: | | | | | | [place] heart | [phone] | | | | | | without | Fax: | | | | | | angina | [phone] | | | | | | pectoris [...] + + | 07/12/ | Office | [facility] | Brianna Stewart | Coronary artery | | 2019 | Visit | CARDIOLOGY PATT | [address] | disease involving | | | | [address] | [address] | [place] coronary | | | | [address] | [place] [address] | artery of [place] | | | | [place] | [phone] | heart without angina | | | | [address] | | pectoris (Primary | | | | [phone] | | Dx); S/P drug | | [...] you an Echo to be done at [facility] in November , and see me in [...] labs , and have referred her to geomorphologist Dr. Buchanan for a decline in her [...] home with instructions to follow-up with her child care supervisor, but did not see suzan oconnor until [...] to absence of adequate TR jet. Mild NJ. No pericardial or pleural effusion. IVC WNL, [...] previously , Otherwise stable rate 61 bpm, NJ 134 ms, QRS 92 ms, QTC 430 ms EK11/27: ([facility] ER). Sinus rhythm with sinus arrhythmia, PVC's. T-wave inv ersion to inferior leads and lateral leads, less pronounced than EKG done in June and in e office today. Rate 67 bpm, NJ 146 ms, QRS 82 ms, QTC 450 ms (personally reviewed by me recinos d compared to previous EKG's) EK: Sinus bradycardia, stable T-wave inversion to inferior and lateral leads , rate 52 bpm, NJ 142 ms, QRS 86 ms, QTC 427 ms (personally reviewed by me and compared to previous EKG's) EK02/07/2018: Normal sinus rhythm, stable T-wave inversion to inferolateral leads. Rate 64 bpm, NJ 138 ms, QRS 90 ms, QTC 441 ms (personally reviewed by me and compared to previo us EKG 02/01/2017, rate is faster, otherwise similar morphology) EK02/11/2019:( [facility] ER) Normal sinus rhythm, nonspecific ST-T wave abnormality to infero lateral leads, stable. Rate 64 bpm, NJ 136 ms, QRS 106 ms, QTC 437 ms, tracing personally r eviewed by me EK04/24/2019: Sinus bradycardia, ST and T wave abnormalities to inferior and anterolatera l leads, similar to previous EKG's, rate 56 bpm, NJ 150 ms, QRS 80 ms, QTC 441 ms seen perso monica reviewed by me, and similar morphology to EKG performed in January 2019 and serum, an d as well as January 2018 EK07/13/2019: Normal sinus rhythm ,ongoing T wave inversions to lateral leads, previous T wave inversion to V3 resolved, ongoing T wave inversion to inferior leads. Rate 62 bpm, NJ 136 ms, QRS 90 ms, QTC 432 [...] appointment to follow-up with Dr. Buchanan, the geomorphologist, on October 29. I have a gain [...] have her establish with one of the child care supervisor who comes to [place]. 1. Coronary artery disease involving [place] coronary artery of [place] heart without angina pectoris 2. S/P drug [...] for continuity of care purp frances Link [facility] 07/14/2019 Prince figueredo in this encounter Plan of Treatment +--------+---------+ + + + | Date | Type | Specialty | Care Team | Description | +--------+---------+ + + + | 11/07/ | Office | Nephrology | Maxx Buchanan MD | | 2019 | Visit | | [address] | | | | | | [address] [place], [place] | | | | | | [address] | | | | | | | | +--------+---------+ + + + | 01/17/ | Office | Cardiology | Brianna Stewart | | 2019 | Visit | | [address] | | | | | | [address] | | | | | | [place] [address] | | | | | | [phone] | | | | | | | [...] 11/28/2019, Expires: | | | | | [place] coronary | 07/12/2020 | | | | | artery of [place] | | | | | | heart [...] the | | | | PDT | [place] coronary | results section. | | | | | artery of [place] | | | | | | heart [...] | | | | | BRIANNA TOBAR ([id number]) on | | | | | | [...] + + | Coronary artery disease involving [place] coronary artery of [place] heart without | | angina pectoris - [...]
--- OUTSIDE RECORDS SUMMARY | ~2019-08-05 | XMS | Encounter Summary ---
Demographics + + + | Address | [address] | | | [place] [address] | + + + | Home Phone | | + + + | Preferred Language | Unknown | + + + | Marital Status | | + + + | Sikhism Affiliation | Unknown | + + + | Race | Unknown | + + + | Ethnic Group | Unknown | + + + Author + + + | Author | [facility] | | | and [place] | + + + | Organization | [facility] | | [...] Team Providers + +------+ + | Care Asphalt Spreader Name | Role | Phone | + [...] Pending | | Radiology | Diagnoses | Chanel, | | | Review | | | Stage 3 | Maxx Conway MD | | | | | | chronic | [address] | | | | | | kidney | [address] | | | | | | disease | [place], | | | | | | ([facility]) | [place] [address] | | | | | | Electrolyte | Phone: | | | | | | imbalance | [phone] | | | | | | risk | Fax: | | | | | | Abdominal | [phone] | | | | | | pain, [...] + | 08/03/ | Orders Only | [facility] | Maxx Buchanan MD | Chronic kidney | | 2019 | | NEPHROLOGY [place] | [address] | disease, stage III | | | | [address] | [address] [place], [place] | (moderate) (Primary | | | | [address] [place], [place] | [address] | Dx); Electrolyte | | | | [address] | | imbalance risk; | | | | [phone] | | Abdominal pain, | | | [...] | | | | | | [address] [place], [place] | | | | | | [address] | | | | | | | | +--------+---------+ + + + | 01/17/ | Office | Cardiology | Brianna Stewart | | | 2020 | Visit | | [address] | | | | | | [address] | | | | | | [place] [address] | | | | | | [phone] | | | | | | | [...]
--- OUTSIDE RECORDS SUMMARY | ~2019-08-05 | XMS | Encounter Summary ---
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 [address] | | | | | kidney | [address] | [address] | | | | | disease | [place] F | [place], | | | | | ([facility]) | [place], [place] | [place] [address] | | | | | | [address] | Phone: | | | | | | Phone: | [phone] | | | | | | [phone] | Fax: | | | | | | Fax: | [phone] | | | | | | [phone] | | + + + + + + + Encounter Details +--------+---------+ + + + | Date | Type | Department | Care Team | Description | +--------+---------+ + + + | 08/03/ | Office | [facility] | Maxx Buchanan MD | Chronic kidney | | 2020 | Visit | NEPHROLOGY [place] | [address] [facility] | disease, stage III | | | | [address] | [address] [facility], [place] | (moderate) (Primary | | | | [address] | [address] | Dx); Generalized | | | | [place], [place] | | abdominal pain; | | | | [address] | | Electrolyte | | | | [phone] | | imbalance risk | +--------+---------+ + [...] a BMP, CBC, intact PTH, rU/A, Urine atgsvbzqacnw-pb-jdjwpdcfiy ratio befor e she comes back in [...] conditions include: - CAD; without angina; of [place] artery - hypertension; essential; with renal disease; 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 - past ME; occured more than 28 days prior to admission - renal disease; CKD; Stage 3 - neuromuscular disease - arthritis Past Medical History: Diagnosis Date Chronic kidney disease, stage III (moderate) ([facility]) 09/23/2015 Coronary artery disease Hyperlipidemia Hypertension Joint pain Neuromuscular disorder ([facility]) NSTEMI (non-ST elevated myocardial infarction) ([facility]) 05/19/2015 Thyroid disease No past surgical history [...] file Gets together: Not on file Attends anglican service: Not on file Active member of [...] a BMP, CBC, intact PTH, rU/A, Urine atvhyankglzh-mw-qgucdotqzk ratio befor e she comes back in [...] | | | | | | [address] [facility] | | | | | | [address] | | | | | | | | +--------+---------+ + + + | 01/17/ | Office | Cardiology | Brianna Stewart | | | 2020 | Visit | | [address] | | | | | | [place]LE KAUF[place] | | | | | | [place] [address] | | | | | | [phone] | | | | | | | [...]
--- OUTSIDE RECORDS SUMMARY | ~2019-08-05 | XMS | Encounter Summary ---
Demographics + + + | Address | [address] | | | [place] [address] | + + + | Home Phone | | + + + | Preferred Language | Unknown | + + + | Marital Status | | + + + | Jainism Affiliation | Unknown | + + + | Race | Unknown | + + + | Ethnic Group | Unknown | + + + Author + + + | Author | [facility] | | | and [place] | + + + | Organization | [facility] | | [...] Team Providers + +------+ + | Care Merchandise Adjustment Clerk Name | Role | Phone | [...] + + | 04/24/ | Office | [facility] | Greggeladio Brianna | Coronary artery | | 2020 | Visit | CARDIOLOGY [place] | [address] | disease involving | | | | [address] | [address]LE IRBY F | [place] coronary | | | | [address] | [place] [address] | artery of [place] | | | | [place] | [phone] | heart without angina | | | | [address] | | pectoris (Primary | | | | [phone] | | Dx); S/P drug | | [...] you fasting labs to be done at [facility] in 2 weeks , but can [...] in this encounter Progress Notes Brianna Stewart, STEM LEAD FORMER - 04/24/2019 9:00 AM PSTFormatting of this [...] history, as she reports that her m [place] can be poor.. Today, I reviewed all [...] reported as negative x2.[facility] showed a normal CMP except for low potassium of 3.5, and elevated creatinine of 1.4 with GFR of 36, magnesium was slightly low at 1.9, and CBC was normal she was discharged home with instructions to follow-up with her sas architect, but I have not seen her until [...] to absence of adequate TR jet. Mild AR. No pericardial or pleural effusion. IVC WNL, [...] previously , Otherwise stable rate 61 bpm, AR 134 ms, QRS 92 ms, QTC 430 ms EK11/27: ([facility]). Sinus rhythm with sinus arrhythmia, PVCs. T-wave inve rsion to inferior leads and lateral leads, less pronounced than EKG done in June and in the office today. Rate 67 bpm, AR 146 ms, QRS 82 ms, QTC 450 ms (personally reviewed by me and compared to previous EKG's) EK: Sinus bradycardia, stable T-wave inversion to inferior and lateral leads , rate 52 bpm, AR 142 ms, QRS 86 ms, QTC 427 ms (personally reviewed by me and compared to previous EKG's) EK02/07/2018: Normal sinus rhythm, stable T-wave inversion to inferolateral leads. Rate 64 bpm, AR 138 ms, QRS 90 ms, QTC 441 ms (personally reviewed by me and compared to previo us EKG 02/01/2017, rate is faster, otherwise similar morphology) [facility]02/11/2019[facility] Normal sinus rhythm, nonspecific ST-T wave abnormality to infero lateral leads, stable. Rate 64 bpm, AR 136 ms, QRS 106 ms, QTC 437 ms, tracing personally r eviewed by me EK04/24/2019: Sinus bradycardia, ST and T wave abnormalities to inferior and anterolatera l leads, similar to previous EKG's, rate 6 bpm, AR 150 ms, QRS 80 ms, QTC 441 [...] lower heart rates. I asked my medical housekeeper to send a message through to her composition weatherboard installer Dr. Mariano to see if she could [...] my patient 1. Coronary artery disease involving [place] coronary artery of [place] heart without angina pectoris 2. S/P drug [...] contain inadvertent rec ognition errors. Mimi CHAVEZ [facility] Cardiology 04/24/2019 Pineda figueredo in this encounter Plan of Treatment +--------+---------+ + + + | Date | Type | Specialty | Care Team | Description | +--------+---------+ + + + | 11/07/ | Office | Nephrology | Maxx Buchanan MD | | 2019 | Visit | | [address] [facility] | | | | | | [address] [place], [place] | | | | | | [id number] | | | | | | | | +--------+---------+ + + + | 01/17/ | Office | Cardiology | Brianna Stewart | | | 2019 | Visit | | [address] | | | | | | [address] | | | | | | [place] [address] | | | | | | [phone] | | | | | | | [...] the | | | | PST | choct[place] coronary | results section. | | | | | artery of [place]ct[place] | | | | | | heart [...] | | | | | by I[facility] [place] Read Only, | | | | | | ICA Michelle ([id number]), | | | | | | editor index Fuentes Mcgarry | | | | | | ([id number]) on 04/24/2019 | | | | | [...] + + | Coronary artery disease involving [place] coronary artery of choct[place] heart without | | angina pectoris - [...]
--- OUTSIDE RECORDS SUMMARY | ~2019-08-05 | XMS | Encounter Summary ---
Demographics + + + | Address | [address] | | | [place] [address] | + + + | Home Phone | | + + + | Preferred Language | Unknown | + + + | Marital Status | | + + + | Catholic Affiliation | Unknown | + + + | Race | Unknown | + + + | Ethnic Group | Unknown | + + + Author + + + | Author | [facility] | | | and [place] | + + + | Organization | [facility] | | [...] Team Providers + +------+ + | Care Personnel Administrator Name | Role | Phone | [...] ANNALEATHA, | | | | | | ([facility]) | [place] [address] | | | | | | Electrolyte | Phone: | | | | | | imbalance | [phone] | | | | | | risk | Fax: | | | | | | Abdominal | [phone] | | | | | | pain, [...] + | 08/03/ | Orders Only | [facility] | Maxx Buchanan MD | Chronic kidney | | 2019 | | NEPHROLOGY [place] | [address] | disease, stage III | | | | [address] | [address] [place], [place] | (moderate) (Primary | | | | [address] [place], [place] | [address] | Dx); Electrolyte | | | | [address] | | imbalance risk; | | | | [phone] | | Abdominal pain, | | | [...] | | | | | | [address] [place], [place] | | | | | | [address] | | | | | | | | +--------+---------+ + + + | 01/17/ | Office | Cardiology | Brianna Stewart | | | 2020 | Visit | | [address] | | | | | | [address] | | | | | | [place] [address] | | | | | | [phone] | | | | | | | [...]
--- OUTSIDE RECORDS SUMMARY | ~2019-08-05 | XMS | Encounter Summary ---
Demographics + + + | Address | [address] | | | [place] [address] | + + + | Home Phone | | + + + | Preferred Language | Unknown | + + + | Marital Status | | + + + | Confucianist Affiliation | Unknown | + + + | Race | Unknown | + + + | Ethnic Group | Unknown | + + + Author + + + | Author | [facility] | | | and [place] | + + + | Organization | [facility] | | | and [...] Team Providers + +------+ + | Care Grip Name | Role | Phone | + [...] + + | 02/08/ | Refill | [facility] | Brianna Stewart | Medication Refill | | 2019 | | CARDIOLOGY [place] | [address] | | | | | [address] | [place] IRBY [address] | | | | | [address] | [place] [address] | | | | | [place] | [phone] | | | | | [address] | | | | | | [phone] | | | +--------+--------+ + + + [...] [place] | | | | | | [address] | | | | | | | | +--------+---------+ + + + | 01/17/ | Office | Cardiology | Brianna Stewart | | | 2019 | Visit | | [address] | | | | | | [address]HELLE IRBY [address] | | | | | | [place] [address] | | | | | | [phone] | | | | | | | | +--------+---------+ + + + documented as of this encounter Visit Diagnoses Not on filedocumented in this encounter"
--- OUTSIDE RECORDS SUMMARY | ~2019-08-05 | XMS | Encounter Summary ---
Demographics + + + | Address | [address] | | | [place] [address] | + + + | Home Phone [...] + + | Author | [facility] | | | and [place] | + + + | Organization | [facility] | | | [...] Team Providers + +------+ + | Care Cathode Maker Name | Role | Phone | + [...] | | | | | artery | STOCK SUPERVISOR [address] | | | | | | disease | [address] | | | | | | involving | [place] | | | | | | zuni | [place] | | | | | | coronary | [address] | | | | | | artery of | Phone: | | | | | | zuni heart | [phone] | | | | | | without | Fax: | | | | | | angina | [phone] | | | | | | pectoris [...] + + | 07/12/ | Office | [facility] | Brianna Stewart | Coronary artery | | 2019 | Visit | CARDIOLOGY [place] | [address] | disease involving | | | | [address] | MICHELLE IRBY F | zuni coronary | | | | [address] | [place] [address] | artery of zuni | | | | [place] | [phone] | heart without angina | | | | [address] | | pectoris (Primary | | | | [phone] | | Dx); S/P drug | | [...] you an Echo to be done at [facility] in November , and see me in [...] labs , and have referred her to electroformer Dr. Buchanan for a decline in her [...] home with instructions to follow-up with her religious leader, but did not see suzan oconnor until [...] to absence of adequate TR jet. Mild [place]. No pericardial or pleural effusion. IVC WNL, [...] previously , Otherwise stable rate 61 bpm, NY 134 ms, QRS 92 ms, QTC 430 ms EK11/27: ([facility]). Sinus rhythm with sinus arrhythmia, PVC's. T-wave inv ersion to inferior leads and lateral leads, less pronounced than EKG done in June and in e office today. Rate 67 bpm, NY 146 ms, QRS 82 ms, QTC 450 ms (personally reviewed by me recinos d compared to previous EKG's) EK: Sinus bradycardia, stable T-wave inversion to inferior and lateral leads , rate 52 bpm, NY 142 ms, QRS 86 ms, QTC 427 ms (personally reviewed by me and compared to previous EKG's) EK02/07/2018: Normal sinus rhythm, stable T-wave inversion to inferolateral leads. Rate 64 bpm, NY 138 ms, QRS 90 ms, QTC 441 ms (personally reviewed by me and compared to previo us EKG 02/01/2017, rate is faster, otherwise similar morphology) EK02/11/2019:( [facility]) Normal sinus rhythm, nonspecific ST-T wave abnormality to infero lateral leads, stable. Rate 64 bpm, NY 136 ms, QRS 106 ms, QTC 437 ms, tracing personally r eviewed by me EK04/24/2019: Sinus bradycardia, ST and T wave abnormalities to inferior and anterolatera l leads, similar to previous EKG's, rate 56 bpm, NY 150 ms, QRS 80 ms, QTC 441 ms seen perso monica reviewed by me, and similar morphology to EKG performed in January 2019 and serum, an d as well as January 2018 EK07/13/2019: Normal sinus rhythm ,ongoing T wave inversions to lateral leads, previous T wave inversion to V3 resolved, ongoing T wave inversion to inferior leads. Rate 62 bpm, NY 136 ms, QRS 90 ms, QTC 432 [...] appointment to follow-up with Dr. Buchanan, the electroformer, on October 29. I have a gain [...] have her establish with one of the religious leader who comes to [place]. 1. Coronary artery disease involving zuni coronary artery of zuni heart without angina pectoris 2. S/P drug [...] for continuity of care purp frances Link [facility] 07/14/2019 Prince figueredo in this encounter Plan of Treatment +--------+---------+ + + + | Date | Type | Specialty | Care Team | Description | +--------+---------+ + + + | 11/07/ | Office | Nephrology | Maxx Buchanan MD | | 2019 | Visit | | [address] | | | | | | [address] [place], [place] | | | | | | [address] | | | | | | | | +--------+---------+ + + + | 01/17/ | Office | Cardiology | Brianna Stewart | | 2019 | Visit | | [address] | | | | | | [address] | | | | | | [place] [address] | | | | | | [phone] | | | | | | | [...] 11/28/2019, Expires: | | | | | zuni coronary | 07/12/2020 | | | | | artery of zuni | | | | | | heart [...] the | | | | PDT | zuni coronary | results section. | | | | | artery of zuni | | | | | | heart [...] | | | | | BRIANNA TOBAR ([id number]) on | | | | | | [...] + + | Coronary artery disease involving zuni coronary artery of zuni heart without | | angina pectoris - [...]
--- OUTSIDE RECORDS SUMMARY | ~2019-08-05 | XMS | Encounter Summary ---
Demographics + + + | Address | [address] | | | [place] [address] | + + + | Home Phone [...] Team Providers + +------+ + | Care Time Recorder Name | Role | Phone | + [...] | | | | [place], [place] | [phone] | | | | | [address] | | | | | | [phone] | | | +--------+ + + + [...] 2020 | Visit | | [address] [facility] | | | | | | [address] [place], [place] | | | | | | [address] | | | | | | | | +--------+---------+ + + + | 01/17/ | Office | Cardiology | Brianna Stewart | | | 2019 | Visit | | [address] | | | | | | [place] | | | | | | [place] [address] | | | | | | [phone] | | | | | | | | +--------+---------+ + + + documented as of this encounter Visit Diagnoses Not on filedocumented in this encounter"
--- OUTSIDE RECORDS SUMMARY | ~2019-08-05 | XMS | Encounter Summary ---
Demographics + + + | Address | [address] | | | [place] [address] | + + + | Home Phone [...] Team Providers + +------+ + | Care Teaching Assistant Name | Role | Phone | [...] + + | 04/24/ | Office | [facility] | Greggeladio Brianna | Coronary artery | | 2020 | Visit | CARDIOLOGY P[place] | [address] | disease involving | | | | [address] | MICHELLE IRBY F | [place] coronary | | | | [address] | [place] [address] | artery of [place] | | | | [place] | [phone] | heart without angina | | | | [address] | | pectoris (Primary | | | | [phone] | | Dx); S/P drug | | [...] you fasting labs to be done at [facility] in 2 weeks , but can [...] in this encounter Progress Notes Brianna Stewart, FILTER WASHER - 04/24/2019 9:00 AM PSTFormatting of this [...] history, as she reports that her m [place] can be poor.. Today, I reviewed all [...] reported as negative x2.[facility] showed a normal CMP except for low potassium of 3.5, and elevated creatinine of 1.4 with GFR of 36, magnesium was slightly low at 1.9, and CBC was normal she was discharged home with instructions to follow-up with her facilities mechanical design engineer, but I have not seen her until [...] to absence of adequate TR jet. Mild [place]. No pericardial or pleural effusion. IVC WNL, [...] previously , Otherwise stable rate 61 bpm, [place] 134 ms, QRS 92 ms, QTC 430 ms EK11/27: ([facility]). Sinus rhythm with sinus arrhythmia, PVCs. T-wave inve rsion to inferior leads and lateral leads, less pronounced than EKG done in June and in the office today. Rate 67 bpm, NC 146 ms, QRS 82 ms, QTC 450 ms (personally reviewed by me and compared to previous EKG's) EK: Sinus bradycardia, stable T-wave inversion to inferior and lateral leads , rate 52 bpm, NC 142 ms, QRS 86 ms, QTC 427 ms (personally reviewed by me and compared to previous EKG's) EK02/07/2018: Normal sinus rhythm, stable T-wave inversion to inferolateral leads. Rate 64 bpm, NC 138 ms, QRS 90 ms, QTC 441 ms (personally reviewed by me and compared to previo us EKG 02/01/2017, rate is faster, otherwise similar morphology) EK02/11/2019:( [facility]) Normal sinus rhythm, nonspecific ST-T wave abnormality to infero lateral leads, stable. Rate 64 bpm, NC 136 ms, QRS 106 ms, QTC 437 ms, tracing personally r eviewed by me EK04/24/2019: Sinus bradycardia, ST and T wave abnormalities to inferior and anterolatera l leads, similar to previous EKG's, rate 6 bpm, NC 150 ms, QRS 80 ms, QTC 441 [...] lower heart rates. I asked my medical engineer to send a message through to her air export logistics manager Dr. Mariano to see if she could [...] my patient 1. Coronary artery disease involving [place] coronary artery of [place] heart without angina pectoris 2. S/P drug [...] 2019 | Visit | | [address] [facility] | | | | | | [address] [place], [place] | | | | | | [id number] | | | | | | | | +--------+---------+ + + + | 01/17/ | Office | Cardiology | Brianna Stewart | | | 2019 | Visit | | [address] | | | | | | [address] | | | | | | [place] [address] | | | | | | [phone] | | | | | | | [...] the | | | | PST | [place] coronary | results section. | | | | | artery of [place] | | | | | | heart [...] | | | | | by [facility] [place] Read Only, | | | | | | ICA Michelle ([id number]), | | | | | | dictionary editor Fuentes Mcgarry | | | | | | (194) on 04/24/2019 | | | | | [...] + + | Coronary artery disease involving [place] coronary artery of [place] heart without | | angina pectoris - [...]
--- OUTSIDE RECORDS SUMMARY | ~2019-08-05 | XMS | Encounter Summary ---
Demographics + + + | Address | [address] | | | [place] [address] | + + + | Home Phone [...] Team Providers + +------+ + | Care Licensed Master Social Worker Name | Role | Phone | [...] Required | Required | | chronic | CHERRY GROWER [address] | | | | | kidney | [address] | [address] | | | | | disease | [place]RE[place] F | [place], | | | | | ([facility]) | [place], [place] | [place] [address] | | | | | | [address] | Phone: | | | | | | Phone: | [phone] | | | | | | [phone] | Fax: | | | | | | Fax: | [phone] | | | | | | [phone] | | + + + + + + + Encounter Details +--------+---------+ + + + | Date | Type | Department | Care Team | Description | +--------+---------+ + + + | 08/03/ | Office | [facility] | Maxx Buchanan MD | Chronic kidney | | 2020 | Visit | NEPHROLOGY [place] | [address] [facility] | disease, stage III | | | | [address] | [address] [facility] [place] | (moderate) (Primary | | | | [address] | [address] | Dx); Generalized | | | | [place], [place] | | abdominal pain; | | | | [address] | | Electrolyte | | | | [phone] | | imbalance risk | +--------+---------+ + [...] a BMP, CBC, intact PTH, rU/A, Urine payxrcpnshtr-vs-cgedvpxbyv ratio befor e she comes back in [...] conditions include: - CAD; without angina; of [place] artery - hypertension; essential; with renal disease; 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 - past [place]; occured more than 28 days prior to admission - renal disease; CKD; Stage 3 - neuromuscular disease - arthritis Past Medical History: Diagnosis Date Chronic kidney disease, stage III (moderate) ([facility]) 09/23/2015 Coronary artery disease Hyperlipidemia Hypertension Joint pain Neuromuscular disorder ([facility]) NSTEMI (non-ST elevated myocardial infarction) ([facility]) 05/19/2015 Thyroid disease No past [...] a BMP, CBC, intact PTH, rU/A, Urine dmmhsnygnjzx-gg-mrzkrppopt ratio befor e she comes back in [...] | | | | | | [facility] | | | | | | [address] | | | | | | | | +--------+---------+ + + + | 01/17/ | Office | Cardiology | Brianna Stewart | | | 2020 | Visit | | [address] | | | | | | [address] | | | | | | [place] [address] | | | | | | [phone] | | | | | | | [...]
--- OUTSIDE RECORDS SUMMARY | ~2019-08-05 | XMS | Encounter Summary ---
Demographics + + + | Address | [address] | | | [place] [address] | + + + | Home Phone | | + + + | Preferred Language | Unknown | + + + | Marital Status | | + + + | Taoist Affiliation [...] Providers + +------+ + | Care Material Flow Analyst Name | Role | Phone | + [...] [address] | | | | | [place], [place] | [place] [address] | | | | | [address] | [phone] | | | | | [phone] | | | +--------+ + + + [...] [place] | | | | | | [address] | | | | | | | | +--------+---------+ + + + | 01/17/ | Office | Cardiology | Brianna Stewart | | | 2019 | Visit | | [address] | | | | | | [address] | | | | | | [place] [address] | | | | | | [phone] | | | | | | | [...] MV A Zack: 0.91 m/s MV Dec [place]: | | | 3.30 m/s2 MV DecT: 110.08 ms MV E Zack: 0.36 m/s MV E/A Ratio: | | | 0.39 MV PHT: 31.92 ms MVA By PHT: 6.89 cm2 Septal e': | | | 0.02 m/s Septal E/e': 17.87 Orange Grower: DBS Authenticated | | | by: Aidan [facility] Report Date/Time: 01-27-2018 20:31:19 | | [...] | | cmLVPWd: 0.48 cmLVOT Area: 3.17 [id number] Diam: 2.01 cm%FS: 13.00 %EF(Teich): | | 27.65 %ESV(Teich): 100.79 mlLVIDs: 4.66 cmSV(Teich): 38.53 mlRVIDd: 2.57 | | cmLAESV(A-L): 31.09 mlLAESV Index (A-L): 19.31 ml/m2LAAs A2C: 11.42 [id number] A-L | | A2C: 27.79 mlLALs A2C: 3.98 cmLAAs A4C: 12.18 [id number] A-L A4C: 33.17 mlLALs | | A4C: 3.80 cmRAAs: 8.87 [id number] A-L: 20.88 mlRAESV MOD: 21.09 mlRALs: 3.19 | | cmTAPSE: 1.39 cmAV maxP.26 mmHgAV meanP.80 mmHgAV Vmax: 1.03 m/Damaris | | Vmean: 0.61 m/Damaris VTI: 18.51 cmAVA Vmax: 1.99 cm2AVA (VTI): 2.59 [id number] (Vmax): | | 0.00 cm2/m2AVAI (VTI): 0.00 cm2/m2LVOT maxP.68 mmHgLVOT meanP.91 | | mmHgLVSI Dopp: 29.78 ml/m2LVSV Dopp: 47.95 mlLVOT Vmax: 0.64 m/sLVOT Vmean: 0.44 | | m/sLVOT VTI: 15.11 cmMV A Zack: 0.91 m/sMV Dec [place]: 3.30 m/s2MV DecT: 110.08 | | msMV E Zack: 0.36 m/sMV E/A Ratio: 0.39MV PHT: 31.92 msMVA By PHT: 6.89 [id number] | | e': 0.02 m/sSeptal E/e': 17.87 Orange Grower: DBSAuthenticated by: Aidan | | [facility] Date/Time: 01-27-2018 20:31:19 IMPRESSION: 1. The left [...] A Zack: 0.91 m/s | |MV Dec [place]: 3.30 m/s2 | |MV DecT: 110.08 ms | |MV E Zack: 0.36 m/s | |MV E/A Ratio: 0.39 | |MV PHT: 31.92 ms | |MVA By PHT: 6.89 cm2 | |Septal e': 0.02 m/s | |Septal E/e': 17.87 | | | |Orange Grower: DBS | |Authenticated by: Aidan Becker | [...]
--- OUTSIDE RECORDS SUMMARY | ~2019-08-05 | XMS | Encounter Summary ---
Demographics + + + | Address | [address] | | | [place] [address] | + + + | Home Phone [...] Team Providers + +------+ + | Care Fagot Heater Name | Role | Phone | + [...] Required | Required | | chronic | TECHNICAL STAFF ENGINEER [address] | | | | | kidney | [address] | [address] | | | | | disease | [place] [address] | [place], | | | | | ([facility]) | [place], [place] | [place] [address] | | | | | | [address] | Phone: | | | | | | Phone: | [phone] | | | | | | [phone] | Fax: | | | | | | Fax: | [phone] | | | | | | [phone] | | + + + + + + + Reason for Visit + + + | Reason | Comments | + + + | Follow-up | 3 week | + + + Encounter Details +--------+---------+ + + + | Date | Type | Department | Care Team | Description | +--------+---------+ + + + | 05/15/ | Office | [facility] | Brianna Stewart | Coronary artery | | 2020 | Visit | CARDIOLOGY [place] | [address] | disease involving | | | | [address] | [place] [address] | southern ute coronary | | | | [address] | [place] [address] | artery of southern ute | | | | [place], [place] | [phone] | heart without angina | | | | [address] | | pectoris (Primary | | | | [phone] | | Dx); S/P drug | | [...] as I have not seen her in [facility] 2 years. On that visit I had her follow-up with her bessemer converter blower to get alternative eyedrops to atenolol, which [...] with instructions to follow-up with her radiator repairer Her current and previous testing and procedures [...] in e office today. Rate 67 bpm, NC 146 [...] rate is faster, otherwise similar morphology) EK02/11/2019:( [facility]) Normal sinus rhythm, nonspecific ST-T wave [...] and treatment of her renal function to airline pilot, Dr. Buchanan. Her thyroid function was also [...] pro viders. 1. 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 S/P drug [...] Placed This Encounter Procedures Ambulatory Referral to [facility] The following portions of the patient's [...] contain inadvertent rec ognition errors. Mimi CHAVEZ [facility] Cardiology 05/15/2019 Pineda figueredo in this encounter Plan of Treatment +--------+---------+ + + + | Date | Type | Specialty | Care Team | Description | +--------+---------+ + + + | 11/07/ | Office | Nephrology | Maxx Buchanan MD | | 2019 | Visit | | [address] [facility] | | | | | | [address] [place], [place] | | | | | | [address] | | | | | | | | +--------+---------+ + + + | 01/17/ | Office | Cardiology | Brianna Stewart | | | 2019 | Visit | | [address] | | | | | | [place] | | | | | | [facility] [address] | | | | | | [phone] | | | | | | | | +--------+---------+ + + + + + +--------+ + + | Name | Type | Priori | Associated Diagnoses | Order Schedule | | | | ty | | | + + +--------+ + + | Ambulatory Referral | Outpatient | Routin | Chronic kidney | Ordered: 05/15/2019 | | to [facility] | Referral | e | disease, stage III | | | | | | (moderate) | | + + +--------+ + + documented as of this encounter Visit Diagnoses + + | Diagnosis | + + | Coronary artery disease involving southern ute coronary artery of southern ute heart without | | angina pectoris - [...]
--- OUTSIDE RECORDS SUMMARY | ~2019-08-05 | XMS | Encounter Summary ---
Demographics + + + | Address | [address] | | | [place] [address] | + + + | Home Phone | | + + + | Preferred Language | Unknown | + + + | Marital Status | | + + + | Evangelical Affiliation | Unknown | + + + | Race | Unknown | + + + | Ethnic Group | Unknown | + + + Author + + + | Author | [facility] | | | and [place] | + + + | Organization | [facility] | | [...] Team Providers + +------+ + | Care Maintenance Coordinator Name | Role | Phone | [...] | | | [address] | [place] [address] | | | | | [place] [address] | | | | | | [phone] | | | +--------+ + + + [...] 2020 | Visit | | [address] [facility] | | | | | | [address] [place] | | | | | | [address] | | | | | | | | +--------+---------+ + + + | 01/17/ | Office | Cardiology | GreggluizBrianna gardner | | | 2019 | Visit | | [address] | | | | | | [place] | | | | | | [facility] [address] | | | | | | [phone] | | | | | | | [...]
--- OUTSIDE RECORDS SUMMARY | ~2019-08-05 | XMS | Encounter Summary ---
Demographics + + + | Address | [address] | | | [place] [address] | + + + | Home Phone [...] Team Providers + +------+ + | Care Injury Prevention Coordinator Name | Role | Phone | + +------+ + | Luanne Love | PCP | | | PA | | | + +------+ + Encounter Details +--------+ + + + + | Date | Type | Department | Care Team | Description | +--------+ + + + + | 05/21/ | Orders Only | [facility] | Maxx Nayak MD | | | 2015 | | CARDIOLOGY [place] | [address] | | | | | [address] | [place] [address] | | | | | [place], [place] | [phone] | | | | | [address] | | | | | | [phone] | | | +--------+ + + + [...] [place] | | | | | | [address] | | | | | | | | +--------+---------+ + + + | 01/17/ | Office | Cardiology | Brianna Stewart | | | 2019 | Visit | | [address] | | | | | | [address] | | | | | | [place] [address] | | | | | | [phone] | | | | | | | | +--------+---------+ + + + documented as of this encounter Visit Diagnoses Not on filedocumented in this encounter"
--- OUTSIDE RECORDS SUMMARY | ~2019-08-05 | XMS | Encounter Summary ---
Demographics + + + | Address | [address] | | | [place] [address] | + + + | Home Phone [...] Team Providers + +------+ + | Care Computerized Mill Recorder Name | Role | Phone | [...] | | | [address] | [place] [address] | | | | | [place] | [phone] | | | | | [address] | | | | | | [phone] | | | +--------+ + + + [...] [place] | | | | | | [address] | | | | | | | | +--------+---------+ + + + | 01/17/ | Office | Cardiology | Brianna Stewart | | | 2019 | Visit | | [address] | | | | | | [place] [address] [address] | | | | | | [place] [address] | | | | | | [phone] | | | | | | | | +--------+---------+ + + + documented as of this encounter Visit Diagnoses Not on filedocumented in this encounter"
--- OUTSIDE RECORDS SUMMARY | ~2019-08-05 | XMS | Encounter Summary ---
Demographics + + + | Address | [address] | | | [place] [address] | + + + | Home Phone | | + + + | Preferred Language | Unknown | + + + | Marital Status | | + + + | Faith Affiliation | Unknown | + + + [...] Team Providers + +------+ + | Care Supervisor Furnace Room Name | Role | Phone | + +------+ + | Luanne Love | PCP | | | PA | | | + +------+ + Encounter Details +--------+ + + + + | Date | Type | Department | Care Team | Description | +--------+ + + + + | 02/01/ | Orders Only | [facility] | Brianna Stewart | | | 2017 | | CARDIOLOGY [place] | Stefani, MANAGER APPLIED [address] | | | | | [address] | [place] [address] | | | | | [address] | [place] [address] | | | | | [place] | [phone] | | | | | [address] | | | | | | [phone] | | | +--------+ + + + [...] [place] | | | | | | [address] | | | | | | | | +--------+---------+ + + + | 01/17/ | Office | Cardiology | Brianna Stewart | | | 2019 | Visit | | [address] | | | | | | [address] | | | | | | [place] [address] | | | | | | [phone] | | | | | | | | +--------+---------+ + + + documented as of this encounter Visit Diagnoses Not on filedocumented in this encounter"
[~2019-08-05 13:22] MED LIST changes: +IRON325 M1 PO; +REMERON15 MG PO
[2019-08-05] MEDS ORDERED: ONDANSETRON ODT4 MG PO (14:46)
--- NOTE | 2019-08-06 11:36 | EKG ---
[facility] [address] [facility] [place] [address] Signed Sinus rhythm with frequent premature ventricular complexes Left axis deviation Abnormal ECG When compared with ECG of 11-FEB-2019 20:13, premature ventricular complexes are now present T wave inversion no longer evident in Lateral leads Confirmed by VALENTINA SANTOS MD ([id number]) on 08/06/2019 11:35:47 AM Electronically Signed By: VALENTINA SANTOS MD 08/06/19 1136 PATIENT NAME: DAMIR ALEJANDRO [place]LE Electrocardiogram DATE OF : 34 PHYSICIAN: VALENTINA SANTOS MD REPORT #: [id number] REPORT IS CONFIDENTIAL AND NOT TO BE RELEASED WITHOUT AUTHORIZATION
== END 2019-08-05 15:04 | disposition home or self-care (01) ==
LOC: ED 13:22
DX: K29.70 Gastritis, unspecified, without bleeding (principal); E03.9 Hypothyroidism, unspecified; I25.2 Old myocardial infarction; Z88.2 Allergy status to sulfonamides; Z88.5 Allergy status to narcotic agent; Z79.899 Other long term (current) drug therapy
CPT/HCPCS: 74022; 80053; 81001; 83690; 83735; 84484; 85025; 93005; 93010; 96374; 96375; 99284-25; J2405

== ENCOUNTER 2019-08-30 16:34 | Inpatient (IN) | payer MEDICARE, OTHER ==
[~2019-08-30] VITALS: Ht 167.6 cm; Wt 54.0 kg
--- OUTSIDE RECORDS SUMMARY | ~2019-08-30 | XMS | Clinical Summary ---
Demographics + + + | Address | [address] | | | [place] [address] | + + + | Home Phone | | + + + | Preferred Language | Unknown | + + + | Marital Status | | + + + | Restorationism Affiliation | Unknown | + + + | Race | Unknown | + + + | Ethnic Group | Unknown | + + + Author + + + | Author | [facility] (Historical as of | | | 11-12-18) | + + + | Organization | [facility] (Historical as of | | | 11-12-18) | + + + | Address | Unknown | + + + | Phone | Unavailable | + + + Support + + +---------+ + | Name | Relationship | Address | Phone | + + +---------+ + | Jeffry Alejandro | ECON | Unknown | | + + +---------+ + Care Team Providers + +------+ + | Care Airplane Patroller Name | Role | Phone | + +------+ + | Luanne Love | PP | | + +------+ + Allergies + + + + + + | Active Allergy | Reactions | Severity | Noted | Comments | | | | | Date | | + + + + + + | Codeine | Itching | Medium | 05/19/19 | | | | | | 16 | | + + + + + + | Gabapentin | Nausea Only | Low | | | + + + + + + | Sulfa Antibiotics | Hives, Rash | High | 05/19/19 | | | | | | 16 | | + + + + + + Current Medications + + +--------+---------+------+------+-------+ | Prescription | Sig. | Disp. | Refills | Star | End | Statu | | | | | | t | Date | s | | | | | | Date | | | + + +--------+---------+------+------+-------+ | aspirin 81 MG | Take 81 mg by mouth | | | | | Activ | | tablet | daily. | | | | | e | + + +--------+---------+------+------+-------+ | cyanocobalamin | Take 1,000 mcg by | | | | | Activ | | (VITAMIN B-12) 1000 | mouth daily. | | | | | e | | MCG tablet | | | | | | | + + +--------+---------+------+------+-------+ | nitroGLYCERIN | Place 1 tablet under | 90 | 12 | 02/2 | | Activ | | (NITROSTAT) 0.4 MG | the tongue every 5 | tablet | | 3/20 | | e | | SL tablet | (five) minutes as | | | 16 | | | | | needed for Chest | | | | | | | | pain. | | | | | | + + +--------+---------+------+------+-------+ | metoprolol | Take 1 tablet by | 180 | 3 | 11/0 | | Activ | | (LOPRESSOR) 25 MG | mouth 2 (two) times | tablet | | 6/20 | | e | | tablet | daily. | | | 17 | | | + + +--------+---------+------+------+-------+ | isosorbide | TAKE 1 TABLET BY | 90 | 3 | 04/1 | | Activ | | mononitrate (IMDUR) | MOUTH DAILY | tablet | | 0/20 | | e | | 30 MG 24 hr tablet | | | | 18 | | | + + +--------+---------+------+------+-------+ | famotidine | TAKE 1 TABLET BY | 180 | 1 | 06 | | Activ | | (PEPCID) 20 MG | MOUTH TWICE DAILY | tablet | | 4/20 | | e | | tablet | | | | 18 | | | + + +--------+---------+------+------+-------+ | levothyroxine | Take 75 mcg by mouth | | | | | Activ | | (SYNTHROID) 75 MCG | every morning | | | | | e | | tablet | before breakfast. | | | | | | + + +--------+---------+------+------+-------+ | mirtazapine | Take 1 tablet by | | | 10/1 | | Activ | | (REMERON) 15 mg | mouth daily. | | | 8/20 | | e | | tablet | | | | 18 | | | + + +--------+---------+------+------+-------+ | simvastatin | Take 1 tablet by | 90 | 1 | 05/1 | | Activ | | (ZOCOR) 20 MG tablet | mouth nightly. | tablet | | 09/15 | | e | | | | | | 19 | | | + + +--------+---------+------+------+-------+ Active Problems + + + | Problem | Noted Date | + + + | S/P drug eluting coronary stent placement | 02/07/2018 | + + + | History of GI diverticular bleed | 02/07/2018 | + + + | Chronic kidney disease, stage III (moderate) | 09/23/2015 | + + + + + | Last Assessment & Plan: CKD, Stage 3, with severe anemia.Lab, | | 12/11/2015: Liver enzymes NML, K: 3.5, BUN/Cr: 31/1.2 (GFR 43), | | glu: 139 WBC: 17.3, H/H: 11.1/29.5, plt: | | 322 | + + + + + | Coronary artery disease | 06/19/2015 | + + + + + | Last Assessment & Plan: 2V-CAD, Hx PCI/stent, LVEF 60%. | | 85yo WF, follow-up after recent visit to the emergency room, | | diarrhea. She denied any significant cardiac symptoms. She | | denies any more chest discomfort, but she admits exertional | | shortness of breath and fatigue, no orthopnea, PND, or | | significant edema. She is known to be anemic. She is known to | | have multivessel coronary disease, but with her renal function, | | would prefer to treat her medically. She is aware of her recent | | abnormal stress test, but despite this understands she is not | | having any angina. Her reports episodes of apnea during | | sleep, she had an overnight oximetry, results pending. | | Tolerating medications. We DC'd her lisinopril, added Imdur 30 | | mg daily. She continues her dual antiplatelet therapy. We'll | | follow her clinically.Hx CABG: noHx PCI/stent: 05/19/2015, | | prox-RCA (3.0*52mm Promus Premier), mid-RCA (2.25*24mm Promus | | Premier).Hx ICD/Pacemaker: noLast Cath, 05/19/2015: left main OK, | | 60% prox-LAD, 50% mid-LAD at D1, 90% osteal D1, Ramus OK, LCx OK, | | 50-60% prox-RCA, mid-RCA occluded. RCA stented.Last Echo, | | 05/19/2015: postero-basal severe hypokinesis, LVEF 60%, trace MR, | | trace TR, trace PI. Last Stress Test, 09/02/2015 ([facility]): | | Lexiscan, old inferior infarction, no ischemia, LVEF 50%.ECG, | | 05/20/2015: sinus rhythm, Q-wave lead III only, inferior T-wave | | inversion, low voltage in limb leads, non-spec ST-T changes | | anteriorly. | + + + + + | History of non-ST elevation myocardial infarction (NSTEMI) | 05/19/2015 | + + + | Essential hypertension | 05/19/2015 | + + + + + | Last Assessment & Plan: Hypertension, controlled, continue | | current meds at current dose (lisinopril, metoprolol). | + + + + + | Hyperlipidemia | 05/19/2015 | + + + + + | Last Assessment & Plan: Hyperlipidemia, continue current meds | | at current dose (asimvastatin). Labs anticipated. | + + + + + | Hypothyroid | 05/19/2015 | + + + Family History + + +------+ + | Medical History | Relation | Name | Comments | + + +------+ + | Heart disease | Brother | | | + + +------+ + | Cancer | Father | | | + + +------+ + | Cancer | Mother | | | + + +------+ + + +------+ + + | Relation | Name | Status | Comments | + +------+ + + | Brother | | | cancer | | | | (Age | | | | | 58) | | + +------+ + + | Father | | | cancer | | | | (Age | | | | | 66) | | + +------+ + + | Mother | | | cancer | | | | (Age | | | | | 76) | | + +------+ + + | Sister | | | heart disease | | | | (Age | | | | | 96) | | + +------+ + + Social History + +-------+ +--------+------+ | Tobacco Use | Types | Packs/Day | Years | Date | | | | | Used | | + +-------+ +--------+------+ | Never Smoker | | | | | + +-------+ +--------+------+ + +---+---+---+ | Smokeless Tobacco: | | | | | Never Used | | | | + +---+---+---+ + + +---------+ + | Alcohol Use | Drinks/We | oz/Week | Comments | | | ek | | | + + +---------+ + | No | 0 | 0.0 | | | | Standard | | | | | drinks or | | | | | | | | | | equivalen | | | | | t | | | + + +---------+ + + + + | Sex Assigned at | Date Recorded | | | | + + + | Not on file | | + + + Last Filed Vital Signs + + + + | Vital Sign | Reading | Time Taken | + + + + | Blood Pressure | 126/62 | 02/07/2018 10:06 AM PST | + + + + | Pulse | 64 | 02/07/2018 10:06 AM PST | + + + + | Temperature | 36.8 C (98.3 F) | 05/21/2015 8:38 AM PST | + + + + | Respiratory Rate | 18 | 02/07/2018 10:06 AM PST | + + + + | Oxygen Saturation | 96% | 02/07/2018 10:06 AM PST | + + + + | Inhaled Oxygen | - | - | | Concentration | | | + + + + | Weight | 56.5 kg (124 lb 9.6 | 02/07/2018 10:06 AM PST | | | oz) | | + + + + | Height | 160 cm (5' 3") | 02/07/2018 10:06 AM PST | + + + + | Body Mass Index | 22.07 | 02/07/2018 10:06 AM PST | + + + + Plan of Treatment + + + + + | Health Maintenance | Due Date | Last Done | Comments | + + + + + | Vaccine: | | | | | Dtap/Tdap/Td (1 - | 2 | | | | Tdap) | | | | + + + + + | Vaccine: Zoster (1 | | | | | of 2) | 3 | | | + + + + + | DEXA SCAN SCREENING | | | | | | 8 | | | + + + + + | Vaccine: | | | | | Pneumococcal 65+ | 8 | | | | Low/Medium Risk (1 | | | | | of 2 - PCV13) | | | | + + + + + | Vaccine: Influenza | | | | | (Season Ended) | 0 | | | + + + + + Implants + +-------+-------+ +--------+--------+--------+ | Implanted | Type | Area | Manufacture | Device | Expira | Model | | | | | r | | tion | / | | | | | | Identi | Date | Serial | | | | | | fier | | / Lot | + +-------+-------+ +--------+--------+--------+ | Promus | Stent | N/A: | [employer] | | | / | | Premier-05/19/2015Implanted: | | Heart | SCIENTIFIC | | | /[id number] | | Qty: 1 on 05/19/2015 by | | | [employer] | | | 322 | | Maxx Nayak MD | | | | | | | + +-------+-------+ +--------+--------+--------+ | Promus | Stent | N/A: | [employer] | | | / | | Premier-05/19/2015Implanted: | | Heart | SCIENTIFIC | | | /[id number] | | Qty: 1 on 05/19/2015 by | | | [employer] | | | 944 | | Maxx Nayak MD | | | | | | | + +-------+-------+ +--------+--------+--------+ Results Not on filefrom Last 3 Months Insurance + +--------+ +------+-------+ + | Payer | Benefi | Subscriber | Type | Phone | Address | | | t Plan | ID | | | | | | / | | | | | | | Group | | | | | + +--------+ +------+-------+ + | MEDICARE | MEDICA | [id number] | | | [address] | | | RE | | | | [place] [address] | | | IP-OP | | | | | + +--------+ +------+-------+ + | COMMERCIAL OTHER | COMMER | [id number] | | | | | | CIAL | 8 | | | | | | GENERI | | | | | | | C PLAN | | | | | + +--------+ +------+-------+ + + +--------+ +--------+ + + | Guarantor Name | Accoun | Relation to | Date | Phone | Billing Address | | | t Type | Patient | of | | | | | | | | | | + +--------+ +--------+ + + | DAMIR ALEJANDRO | Person | Self [birth year] Home: | [address] | | | al/Fam | | [phone] | [phone] [place] | | | manuel | | [phone] | + +--------+ +--------+ + +
--- OUTSIDE RECORDS SUMMARY | ~2019-08-30 | XMS | Encounter Summary ---
Demographics + + + | Address | [address] | | | [place] [address] | + + + | Home Phone | | + + + | Preferred Language | Unknown | + + + | Marital Status | | + + + | Episcopalian Affiliation | Unknown | + + + | Race | Unknown | + + + | Ethnic Group | Unknown | + + + Author + + + | Author | [facility] | | | and [place] | + + + | Organization | [facility] | | | and [place] | + + + | Address | Unknown | + + + | Phone | Unavailable | + + + Support + + +---------+ + | Name | Relationship | Address | Phone | + + +---------+ + | Jeffry Juarez | ECON | Unknown | | + + +---------+ + Care Team Providers + +------+ + | Care E Marketing Specialist Name | Role | Phone | + +------+ + | Luanne Love | PCP | | | PA | | | + +------+ + Reason for Visit +--------+ + | Reason | Comments | +--------+ + | Other | CT scan abdomen 08/04/19 | +--------+ + Encounter Details +--------+ + + + + | Date | Type | Department | Care Team | Description | +--------+ + + + + | 08/06/ | Documentati | [facility] | Rogelio, | Other (CT scan | | 2019 | on | NEPHROLOGY [place] | [address] | abdomen 08/04/19) | | | | [address] [place] | Estate Planning Director | | | | | [address] [place], [place] | | | | | | [address] | | | | | | [phone] | | | +--------+ + + + + Social History + +-------+ +--------+------+ [...] + +---------+ + | Alcohol Use | Drinks/Week | oz/Week | Comments | + + +---------+ + | Not Currently | | | | + + +---------+ + + + + | Sex Assigned at | Date Recorded | | | | + + + | Not on file | | + + + + + + + | Job Start Date | Occupation | Industry | + + + + | Not on file | Not on file | Not on file | + + + + + + + + | Travel History | Travel Start | Travel End | + + + + + + | No recent travel history available. | + + documented as of this encounter Plan of Treatment +--------+---------+ + + + | Date | Type | Specialty | Care Team | Description | +--------+---------+ + + + | 11/07/ | Office | Nephrology | Maxx Buchanan MD | | | 2020 | Visit | | [address] [place] | | | | | | [address] [place] | | | | | | [address] | | | | | | (Fax) | | +--------+---------+ + + + | 01/17/ | Office | Cardiology | Brianna Stewart | | | 2019 | Visit | | [address] | | | | | | [place] [address] | | | | | | [place] [address] | | | | | | [phone] | | | | | | | | +--------+---------+ + + + documented as of this encounter Visit Diagnoses Not on filedocumented in this encounter"
--- OUTSIDE RECORDS SUMMARY | ~2019-08-30 | XMS | Encounter Summary ---
Demographics + + + | Address | [address] | | | [place] [address] | + + + | Home Phone | | + + + | Preferred Language | Unknown | + + + | Marital Status | | + + + | Scientology Affiliation | Unknown | + + + | Race | Unknown | + + + | Ethnic Group | Unknown | + + + Author + + + | Author | [facility] | | | and [place] | + + + | Organization | [facility] | | | and [...] Team Providers + +------+ + | Care Engraver Rubber Name | Role | Phone | + [...] + + | 08/06/ | Documentati | [facility] | Rogelio, | Other (CT scan | | 2019 | on | NEPHROLOGY [place] | [address] | abdomen 08/04/19) | | | | [address] [place] | Brewery Cellar Worker | | | | | [address] [place], [place] | | | | | | [address] | | | | | | [phone] | | | +--------+ + + + [...] [place] | | | | | | [address] | | | | | | (Fax) | | +--------+---------+ + + + | 01/17/ | Office | Cardiology | Brianna Stewart | | | 2019 | Visit | | [address] | | | | | | [place] [address] | | | | | | [place] [address] | | | | | | [phone] | | | | | | | | +--------+---------+ + + + documented as of this encounter Visit Diagnoses Not on filedocumented in this encounter"
--- OUTSIDE RECORDS SUMMARY | ~2019-08-30 | XMS | Encounter Summary ---
Demographics + + + | Address | [address] | | | [place] [address] | + + + | Home Phone | | + + + | Preferred Language | Unknown | + + + | Marital Status | | + + + | Episcopal Affiliation | Unknown | + + + | Race | Unknown | + + + | Ethnic Group | Unknown | + + + Author + + + | Author | [facility] | | | and [place] | + + + | Organization | [facility] | | | [...] Team Providers + +------+ + | Care Director Recreation Name | Role | Phone | + +------+ + | Luanne Love | PCP | | | PA | | | + +------+ + Encounter Details +--------+ + + + + | Date | Type | Department | Care Team | Description | +--------+ + + + + | 02/07/ | Orders Only | [facility] | Conversion | | | 2018 | | CONVERSION [address] | Transaction, | | | | | [address] | Provider Unknown | | | | | [place], [place] | [phone] | | | | | [address] | | | | | | [phone] | | | +--------+ + + + + Social History + +-------+ +--------+------+ | Tobacco Use | Types | Packs/Day | Years | Date | | | | | Used | | + +-------+ +--------+------+ | Never Smoker | | | | | + +-------+ +--------+------+ + + + | Sex Assigned at [...] 2020 | Visit | | [address] [facility] | | | | | | [address] [place], [place] | | | | | | [address] | | | | | | | | +--------+---------+ + + + | 01/17/ | Office | Cardiology | Brianna Stewart | | | 2019 | Visit | | [address] | | | | | | [place] [address] | | | | | | [place] [address] | | | | | | [phone] | | | | | | | | +--------+---------+ + + + documented as of this encounter Visit Diagnoses Not on filedocumented in this encounter"
--- OUTSIDE RECORDS SUMMARY | ~2019-08-30 | XMS | Encounter Summary ---
Demographics + + + | Address | [address] | | | [place] [address] | + + + | Home Phone | | + + + | Preferred Language | Unknown | + + + | Marital Status | | + + + | Yazdanism Affiliation | Unknown | + + + | Race | Unknown | + + + | Ethnic Group | Unknown | + + + Author + + + | Author | [facility] | | | and [place] | + + + | Organization | [facility] | | [...] Team Providers + +------+ + | Care Mixing Machine Feeder Name | Role | Phone | + +------+ + | Luanne Love | PCP | | | PA | | | + +------+ + Encounter Details +--------+ + + + + | Date | Type | Department | Care Team | Description | +--------+ + + + + | 02/01/ | Orders Only | [facility] | Brianna Stewart | | | 2017 | | CARDIOLOGY PATT | Stefani, NATURAL RESOURCE MANAGER [address] | | | | | [address] | [address] | | | | | [address] | [place] [address] | | | | | [place] | [phone] | | | | | [address] | | | | | | [phone] | | | +--------+ + + + [...] [place] | | | | | | [address] | | | | | | | | +--------+---------+ + + + | 01/17/ | Office | Cardiology | Brianna Stewart | | | 2019 | Visit | | [address] | | | | | | [address] | | | | | | [place] [address] | | | | | | [phone] | | | | | | | | +--------+---------+ + + + documented as of this encounter Visit Diagnoses Not on filedocumented in this encounter"
--- OUTSIDE RECORDS SUMMARY | ~2019-08-30 | XMS | Encounter Summary ---
Demographics + + + | Address | [address] | | | [place] [address] | + + + | Home Phone | | + + + | Preferred Language | Unknown | + + + | Marital Status | | + + + | Bahai Affiliation | Unknown | + + + | Race | Unknown | + + + | Ethnic Group | Unknown | + + + Author + + + | Author | [facility] | | | and [place] | + + + | Organization | [facility] | | [...] Team Providers + +------+ + | Care Interpretive Program Coordinator Name | Role | Phone | + +------+ + | Luanne Love | PCP | | | PA | | | + +------+ + Encounter Details +--------+ + + + + | Date | Type | Department | Care Team | Description | +--------+ + + + + | 07/03/ | Imaging | [facility] | Provider, | | | 2020 | Exam | [facility] | MD Palmira Cuadra | | | | | IMAGING [address] | | | | | [address] | [place] [address] | | | | | [place] [address] | | | | | | [phone] | | | +--------+ + + + [...] 2020 | Visit | | [address] [facility] | | | | | | [address] [place] | | | | | | [address] | | | | | | | | +--------+---------+ + + + | 01/17/ | Office | Cardiology | GreggluizBrianna gardner | | | 2019 | Visit | | [address] | | | | | | [place] | | | | [facility] [address] | | | | | | [phone] | | | | | | | | +--------+---------+ + + + documented as of this encounter Procedures + +--------+ + + + | Procedure Name | Priori | Date/Time | Associated Diagnosis | Comments | | | ty | | | | + +--------+ + + + | MRI LUMBAR SPINE WO | Routin | 12/14/2017 | | Results for this | | CONTRAST | e | 12:00 AM | | procedure are in the | | | | PDT | | results section. | + +--------+ + + + documented in this encounter Results MRI Lumbar Spine wo Contrast (12/14/2017 12:00 AM PDT) + + | Specimen | + + | | + + + + + | Narrative | Performed At | + + + | External films for comparison only | [facility] | | | | | No results will be in the chart. | | + + + + +---------+ + + | Performing | Address | City/State/Zipcode | Phone Number | | Organization | | | | + +---------+ + + | [facility] | | | | + +---------+ + + documented in this encounter Visit Diagnoses Not on filedocumented in this encounter"
--- OUTSIDE RECORDS SUMMARY | ~2019-08-30 | XMS | Encounter Summary ---
Demographics + + + | Address | [address] | | | [place] [address] | + + + | Home Phone | | + + + | Preferred Language | Unknown | + + + | Marital Status | | + + + | Synagogue Affiliation | Unknown | + + + | Race | Unknown | + + + | Ethnic Group | Unknown | + + + Author + + + | Author | [facility] | | | and [place] | + + + | Organization | [facility] | | | and [place] | + [...] Team Providers + +------+ + | Care Germination Worker Name | Role | Phone | + [...] + + | 02/08/ | Refill | [facility] | Brianna Stewart | Medication Refill | | 2019 | | CARDIOLOGY [place] | [address] | | | | | [address] | [address] | | | | | [address] | [place] [address] | | | | | [place] | [phone] | | | | | [address] | | | | | | [phone] | | | +--------+--------+ + + + [...] [place] | | | | | | [address] | | | | | | | | +--------+---------+ + + + | 01/17/ | Office | Cardiology | Brianna Stewart | | | 2019 | Visit | | [address] | | | | | | [address] | | | | | | [place] [address] | | | | | | [phone] | | | | | | | | +--------+---------+ + + + documented as of this encounter Visit Diagnoses Not on filedocumented in this encounter"
--- OUTSIDE RECORDS SUMMARY | ~2019-08-30 | XMS | Encounter Summary ---
Demographics + + + | Address | [address] | | | [place] [address] | + + + | Home Phone | | + + + | Preferred Language | Unknown | + + + | Marital Status | | + + + | Methodist Affiliation | Unknown | + + + | Race | Unknown | + + + | Ethnic Group | Unknown | + + + Author + + + | Author | [facility] | | | and [place] | + + + | Organization | [facility] | | | [...] Team Providers + +------+ + | Care Pipe Washer Name | Role | Phone | + +------+ + | Luanne Love | PCP | | | PA | | | + +------+ + Encounter Details +--------+ + + + + | Date | Type | Department | Care Team | Description | +--------+ + + + + | 08/11/ | Orders Only | [facility] | Brianna Stewart | | | 2019 | | CARDIOLOGY PATT | [address] | | | | | [address] | [address] | | | | | [address] | [place] [address] | | | | | [place] | [phone] | | | | | [address] | | | | | | [phone] | | | +--------+ + + + [...] | 11/07/ | Office | Nephrology | Akoum, Maxx H, MD | | | 2019 | Visit | | [address] | | | | | | [address] [place] | | | | | | [address] | | | | | | | | +--------+---------+ + + + | 01/17/ | Office | Cardiology | Brianna Stewart | | | 2019 | Visit | | [address] | | | | | | [place] [address] | | | | | | [place] [address] | | | | | | [phone] | | | | | | | | +--------+---------+ + + + documented as of this encounter Visit Diagnoses Not on filedocumented in this encounter"
--- OUTSIDE RECORDS SUMMARY | ~2019-08-30 | XMS | Encounter Summary ---
Demographics + + + | Address | [address] | | | [place] [address] | + + + | Home Phone | | + + + | Preferred Language | Unknown | + + + | Marital Status | | + + + | Nondenominational Affiliation | Unknown | + + + [...] Team Providers + +------+ + | Care Computer Bookkeeper Name | Role | Phone | + +------+ + | Luanne Love | PCP | | | PA | | | + +------+ + Encounter Details +--------+ + + + + | Date | Type | Department | Care Team | Description | +--------+ + + + + | 05/21/ | Orders Only | [facility] | Maxx Nayak MD | | | 2015 | | CARDIOLOGY [place] | [address] | | | | | [address] | [place] [address] | | | | | [place], [place] | [phone] | | | | | [address] | | | | | | [phone] | | | +--------+ + + + [...] [place] | | | | | | [address] | | | | | | | | +--------+---------+ + + + | 01/17/ | Office | Cardiology | Brianna Stewart | | | 2019 | Visit | | [address] | | | | | | [address] | | | | | | [place] [address] | | | | | | [phone] | | | | | | | | +--------+---------+ + + + documented as of this encounter Visit Diagnoses Not on filedocumented in this encounter"
--- OUTSIDE RECORDS SUMMARY | ~2019-08-30 | XMS | Encounter Summary ---
Demographics + + + | Address | [address] | | | [place] [address] | + + + | Home Phone | | + + + | Preferred Language | Unknown | + + + | Marital Status | | + + + | Quaker Affiliation | Unknown | + + + | Race | Unknown | + + + | Ethnic Group | Unknown | + + + Author + + + | Author | [facility] | | | and [place] | + + + | Organization | [facility] | | | [...] Team Providers + +------+ + | Care Doctor Of Naprapathic Medicine Name | Role | Phone | + +------+ + | Luanne Love | PCP | | | PA | | | + +------+ + Reason for Referral Diagnostic/Screening (Routine) + +--------+ + + + + | Status | Reason | Specialty | Diagnoses / | Referred By | Referred To | | | | | Procedures | Contact | Contact | + +--------+ + + + + | Pending | | Radiology | Diagnoses | Reese, | | | Review | | | Coronary | Janel, | | | | | | artery | [facility]ST [address] | | | | | | disease | [address] | | | | | | involving | [address] [address] | | | | | | [place] | [place] | | | | | | coronary | [id number] | | | | | | artery of | Phone: | | | | | | [place] heart | [phone] | | | | | | without | Fax: | | | | | | angina | [phone] | | | | | | pectoris | | | | | | | Essential | | | | | | | hypertension | | | | | | | Systolic | | | | | | | heart | | | | | | | failure | | | | | | | secondary to | | | | | | | coronary | | | | | | | artery | | | | | | | disease | | | | | | | (HCC) | | | | | | | Ischemic | | | | | | | cardiomyopat | | | | | | | hy Left | | | | | | | ventricular | | | | | | | hypokinesis | | | | | | | Procedures | | | | | | | ECHO | | | | | | | Complete | | | + +--------+ + + + + Reason for Visit + + + | Reason | Comments | + + + | Follow-up | 2 month | + + + Encounter Details +--------+---------+ + + + | Date | Type | Department | Care Team | Description | +--------+---------+ + + + | 07/12/ | Office | [facility] | Brianna Stewart | Coronary artery | | 2019 | Visit | CARDIOLOGY [place] | [address] | disease involving | | | | [address] | [address] | [place] coronary | | | | [address] | [place] [address] | artery of [place] | | | | [place] | [phone] | heart without angina | | | | [id number] | | pectoris (Primary | | | | [phone] | | Dx); S/P drug | | [...] | | | | | | unspecified type; | | | | | | Left ventricular | | | | | | hypokinesis | +--------+---------+ + + + Social History [...] + + + | Blood Pressure | 112/68 | 07/13/2019 1:18 PM | | | | | PDT | | + + + + + | Pulse | 65 | 07/13/2019 1:18 PM | | | | | PDT | | + + + + + | Temperature | - | - | | + + + + + | Respiratory Rate | - | - | | + + + + + | Oxygen Saturation | 98% | 07/13/2019 1:18 PM | | | | | PDT | | + + + + + | Inhaled Oxygen | - | - | | | Concentration | | | | + + + + + | Weight | 58.8 kg (129 lb 9.6 | 07/13/2019 1:18 PM | | | | oz) | PDT | | + + + + + | Height | 162.6 cm (5' 4") | 07/13/2019 1:18 PM | | | | | PDT | | + + + + + | Body Mass Index | 22.25 | 07/13/2019 1:18 PM | | | | | PDT | | + + + + + documented in this encounter Patient Instructions Patient Instructions Brianna Stewart FNP - 07/13/2019 1:30 PM PDT I also ordered you an Echo to be done at [facility] in November , and see me in December I made no changes to medications documented in this encounter Progress Notes Brianna Stewart FNP - 07/13/2019 1:30 PM PDTFormatting of this note might be differe nt from the original. Date of visit: 07/14/2019 Primary Care Physician: REGINA Angeles CHIEF COMPLAINT: Chief Complaint Patient presents with Follow-up 2 month HISTORY OF PRESENT ILLNESS: Shoaib Bean , is an 88-year-old woman here today to follow-up on her heart rate and blood pressure after restarting her thyroid medication, and remaining off her timolol eyedr ops Today, I reviewed all previous documentation available [...] to pursue this I saw her last May 15, 2019, when I followed up on her bradycardic heart rate to see if it improved after stopping atenolol eyedrops. I also followed up with her about her labs , and have referred her to stogie packer Dr. Buchanan for a decline in her kidney function. I w as very concerned about her, as it was evident she had not been taking many of her medicatio ns including iron and thyroid medication, and had not been following up with her PCP, and I previously had not seen her for almost 2 years. Her heart rate had improved once atenolol e yedrops stopped and no longer bradycardic when I saw her last. Her last emergency room visit was February 11, 2019 for left-sided chest pain. I review ed her ER documentation which noted that her chest pain was sharp and radiated to her back, she had no vomiting or shortness of breath and she had taken an old sublingual nitro with no effect and sublingual nitro given to her in the emergency room also did not seem to help he r. Her EKG was documented as normal sinus rhythm with a rate of [address]-T wav e changes. Her chest x-ray was reported as no acute findings and no heart failure, and tropo xena was reported as negative x2., normal CMP except for low potassium of 3.5, and elevated c reatinine of 1.4 with GFR of 36, magnesium was slightly low at 1.9, and CBC was normal. She was discharged home with instructions to follow-up with her ward secretary, but did not see suzan oconnor until April 24 Her current and previous testing and procedures are detailed below. She followed up with her PCP, Luanne Love on May 23, 2019 and note reviewed an d updated TSH ordered, which is detailed below and shows slightly low TSH, and thyroid medic ine has been adjusted since that time to lower dose. She reports she has felt well since she saw me last, though still continues to be fatigued, and not very active. She reports that she eats mainly because she makes meals per her husb and, but mostly has no appetite. She reports she has had no further episodes of chest pain since her emergency room visi t, and denies any palpitations, peripheral edema, dyspnea, dizziness, or syncope. She denie s any recent falls. She also denies any signs or symptoms of stroke or TIA. She reports less frequent bouts of nausea and vomiting, and tends to be dehydrated, and feliz s not always drink water on a regular basis, but has been trying to sip water throughout the day as I had suggested when I saw her last.. She previously had ongoing problems with abdo lilia pain secondary to diverticulitis She continues to suffer from poor memory, She brought her medications at the visit today and I reviewed them personally. REVIEW OF SYSTEMS: Negative except for pertinent items noted in HPI. Constitutional: reports ongoing mild fatigue. Denies unexplained weight loss. Appetite is Poor, Weight is stable. Denies night sweats fevers or chills HENT: Denies nosebleeds. reports poor hearing Denies dysphagia Eyes:Hx cataract surgery Denies visual disturbance or double vision. Denies history of gl aucoma Respiratory: FELIZ with more extreme exertion, Denies cough Denies hemoptysis or excessive sputum production Cardiovascular: denies chest pain today. C/o chronic mild right ankle swelling Denies palp itations . Denies claudication. . Gastrointestinal: HX GERD,on Pepcid , GIB with acute diverticulitis 12/23/2017.c/o intermitt ent abd pain. Occasional nausea, vomiting. Denies blood in stool. Genitourinary: Negative for hematuria. [...] Denies history of cancer Endocrine: Hx thyroid disease. Denies diabetes Denies excessive thirst or hunger. [...] cisco ly. famotidine (PEPCID) 20 mg tablet Take 20 mg by mouth 2 times daily. isosorbide mononitrate (IMDUR) 30 mg ER tablet Take 30 mg by mouth Daily. levothyroxine (SYNTHROID) 125 mcg tablet Take 125 mcg by mouth every morning (before br eakfast). levothyroxine (SYNTHROID) 137 mcg tablet Take 125 mcg by mouth Daily. metoprolol tartrate (LOPRESSOR) [...] 1 g by mouth 4 times daily. sucralfate (CARAFATE) 1 g tablet Take 1 g by mouth 4 times daily. No facility-administered medications prior to visit. PHYSICAL EXAM: Wt Readings from Last 3 Encounters: 07/13/19 58.8 kg (129 lb 9.6 oz) 05/15/19 60.8 kg (134 lb) 04/24/19 60.7 kg (133 lb 12.8 oz) Temp Readings from Last 3 Encounters: No data found for Temp BP Readings from Last 3 Encounters: 07/13/19 112/68 05/15/19 140/70 04/24/19 118/76 Pulse Readings from Last 3 Encounters: 07/13/19 65 05/15/19 67 04/24/19 57 Vital signs: 02/07/2018: Wt: 124 Lbs. BP:126/62 . HR.64 Vital signs: 08/09/2017: Wt: 129 Lbs. BP: 126/54 . HR. 62 Vital signs:02/01/2017: Wt:126 Lbs. BP: 144/76 . HR. 65 GENERAL: Frail elderly woman , in no distress. Appears approximately stated age. HEENT: Normocephalic, atraumatic. EYES: PERRL, EOM normal. MOUTH: Oral mucosae [...] to absence of adequate TR jet. Mild WI. No pericardial or pleural effusion. IVC WNL, [...] previously , Otherwise stable rate 61 bpm, WI 134 ms, QRS 92 ms, QTC 430 ms EK11/27: ([facility] ER). Sinus rhythm with sinus arrhythmia, PVC's. T-wave inv ersion to inferior leads and lateral leads, less pronounced than EKG done in June and in e office today. Rate 67 bpm, WI 146 ms, QRS 82 ms, QTC 450 ms (personally reviewed by me recinos d compared to previous EKG's) EK: Sinus bradycardia, stable T-wave inversion to inferior and lateral leads , rate 52 bpm, WI 142 ms, QRS 86 ms, QTC 427 ms (personally reviewed by me and compared to previous EKG's) EK02/07/2018: Normal sinus rhythm, stable T-wave inversion to inferolateral leads. Rate 64 bpm, WI 138 ms, QRS 90 ms, QTC 441 ms (personally reviewed by me and compared to previo us EKG 02/01/2017, rate is faster, otherwise similar morphology) EK02/11/2019:( [facility] ER) Normal sinus rhythm, nonspecific ST-T wave abnormality to infero lateral leads, stable. Rate 64 bpm, WI 136 ms, QRS 106 ms, QTC 437 ms, tracing personally r eviewed by me EK04/24/2019: Sinus bradycardia, ST and T wave abnormalities to inferior and anterolatera l leads, similar to previous EKG's, rate 56 bpm, WI 150 ms, QRS 80 ms, QTC 441 ms seen perso monica reviewed by me, and similar morphology to EKG performed in January 2019 and serum, an d as well as January 2018 EK07/13/2019: Normal sinus rhythm ,ongoing T wave inversions to lateral leads, previous T wave inversion to V3 resolved, ongoing T wave inversion to inferior leads. Rate 62 bpm, WI 136 ms, QRS 90 ms, QTC 432 ms, tracing personally reviewed by me, and similar tracing he is EKG performed in March 2019, except rate has improved. LABS: Labs: 03/2016: WBC 12.4, hemoglobin 10.8, [...] 4.5.: Thyroid TSH 105.2. T 4 0.396 Labs: 07/03/2019: TSH: 0.123 ( levothyroxine reduced to 125 mcg) ASSESSMENT & PLAN: She was here today for 2 month follow-up, as her thyroid had previously been very poorly controlled, and I needed to follow-up to make sure her heart rate and EKG were still well c ontrolled, that she was being compliant with medications, as previously an issue. She has problems as detailed below. Her EKG performed in the clinic today shows normal sinus rhythm at 62 bpm, with stable T wave inversions in inferolateral leads, and no change from previous EKG except less bradycar dic. Her blood pressure is well controlled, and she seems brighter and more focused today. Her repeat TSH as detailed above, and now shows a low TSH, and her thyroid medicine has bee n reduced by her PCP, and she is now back on all her prescribed medications I reviewed her EKG in detail with her, and her latest TSH, and discussed with her how much better she looks now that she is back on her medications. She has am appointment to follow-up with Dr. Buchanan, the stogie packer, on October 29. I have a gain encouraged her to stay adequately hydrated by drinking and sipping water throughout the day, as she has difficulty drinking large amounts of water at one time. For her cardiac medications, I have continued Imdur 30 mg daily, metoprolol tartrate 25 m g twice daily, atorvastatin 40 mg nightly, Plavix 75 mg daily, and she does not need to be on aspirin if she is on Plavix, and encouraged her to take it after she has eaten a full me al. Now that she is back on her medications on a consistent basis, I have ordered an updated Ec ho to evaluate her heart failure and hypokinesis. I have requested the echo be performed in November, and I will follow-up with her in Decob er, but sooner if needed. After I see her back, I will also have her establish with one of the ward secretary who comes to [place]. 1. Coronary artery disease involving [place] coronary artery of [place] heart without angina pectoris 2. S/P drug eluting coronary stent placement 3. Essential hypertension 4. Mixed hyperlipidemia 5. History of PTCA 6. 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 Ischemic cardiomyopathy 8. History of non-ST elevation myocardial infarction (NSTEMI) 9. Chronic kidney disease, stage III (moderate) 10. Cognitive deficits 11. Hypothyroidism, unspecified type 12. Left ventricular hypokinesis Orders Placed This Encounter Procedures ECG 12 lead ECHO Complete The following portions of the patient's history [...] and may contain inadvertent rec ognition errors. Portions of this chart may have been copied from previous notes for continuity of care purp frances [facility] 07/14/2019 Prince figueredo in this encounter Plan of Treatment +--------+---------+ + + + | Date | Type | Specialty | Care Team | Description | +--------+---------+ + + + | 11/07/ | Office | Nephrology | Maxx Buchanan MD | | 2019 | Visit | | [address] | | | | | | [address] [place], [place] | | | | | | [address] | | | | | | | | +--------+---------+ + + + | 01/17/ | Office | Cardiology | Brianna Stewart | | 2019 | Visit | | [address] | | | | | | [address] | | | | | | [place] [address] | | | | | | [phone] | | | | | | | | +--------+---------+ + + + + + +--------+ + + | Name | Type | Priori | Associated Diagnoses | Order Schedule | | | | ty | | | + + +--------+ + + | ECHO Complete | Echocardiog | Routin | Coronary artery | Expected: | | | raymond | e | disease involving | 11/28/2019, Expires: | | | | | [place] coronary | 07/12/2020 | | | | | artery of [place] | | | | | | heart without angina | | | | | | pectoris Essential | | | | | | hypertension | | | | | | Systolic heart | | | | | | failure secondary to | | | | | | coronary artery | | | | | | disease (HCC) | | | | | | Ischemic | | | | | | cardiomyopathy Left | | | | | | ventricular | | | | | | hypokinesis | | + + +--------+ + + documented as of this encounter Procedures + +--------+ + + + | Procedure Name | Priori | Date/Time | Associated Diagnosis | Comments | | | ty | | | | + +--------+ + + + | ECG 12 LEAD | Routin | 07/13/2019 | Coronary artery | Results for this | | | e | 1:26 PM | disease involving | procedure are in the | | | | PDT | [place] coronary | results section. | | | | | artery of [place] | | | | | | heart without angina | | | | | | pectoris S/P drug | | | | | | eluting coronary | | | | | | stent placement | | | | | | Essential | | | | | | hypertension Mixed | | | | | | hyperlipidemia | | | | | | History of PTCA | | | | | | Systolic heart | | | | | | failure secondary to | | | | | | coronary artery | | | | | | disease (HCC) | | | | | | Ischemic | | | | | | cardiomyopathy | | | | | | History of non-ST | | | | | | elevation myocardial | | | | | | infarction (NSTEMI) | | | | | | Chronic kidney | | | | | | disease, stage III | | | | | | (moderate) | | | | | | Cognitive deficits | | | | | | Hypothyroidism, | | | | | | unspecified type | | + +--------+ + + + documented in this encounter Results ECG 12 lead (07/13/2019 1:26 PM PDT) + + + + + + | Component | Value | Ref Range | Performed | Pathologist | | | | | At | Signature | + + + + + + | VENTRICULAR | 62 | BPM | [facility] | | | RATE EKG | | | | | + + + + + + | ATRIAL RATE | 62 | BPM | [facility] | | + + + + + + | P-R | 136 | ms | [facility] | | | INTERVAL | | | | | + + + + + + | QRS | 90 | ms | [facility] | | | DURATION | | | | | + + + + + + | Q-T | 426 | ms | [facility] | | | INTERVAL | | | | | + + + + + + | Q-T | 432 | ms | [facility] | | | INTERVAL | | | | | | (CORRECTED) | | | | | + + + + + + | P WAVE AXIS | 68 | degrees | [facility] | | + + + + + + | QRS AXIS | 41 | degrees | [facility] | | + + + + + + | T AXIS | -63 | degrees | [facility] | | + + + + + + | INTERPRETAT | Normal sinus rhythmST & | | [facility] | | | ION TEXT | T wave abnormality, | | | | | | consider inferolateral | | | | | | ischemiaAbnormal ECGWhen | | | | | | compared with ECG of | | | | | | 24-APR-2019 09:25,no | | | | | | significant change , | | | | | | except less bradycardic | | | | | | Confirmed by REESE | | | | | | BRIANNA TOBAR ([id number]) on | | | | | | 07/13/2019 3:49:17 PM | | | | + + + + + + + + | Specimen | + + | | + + + + + | Narrative | Performed At | + + + | | | + + + + +---------+ + + | Performing | Address | City/State/Zipcode | Phone Number | | Organization | | | | + +---------+ + + | [facility] | | | | + +---------+ + + documented in this encounter Visit Diagnoses + + | Diagnosis | + + | Coronary artery disease involving [place] coronary artery of [place] heart without | | angina pectoris - [...] | Hypothyroidism, unspecified type | + + | Left ventricular hypokinesis | + + documented in this encounter
--- OUTSIDE RECORDS SUMMARY | ~2019-08-30 | XMS | Encounter Summary ---
Demographics + + + | Address | [address] | | | [place] [address] | + + + | Home Phone | | + + + | Preferred Language | Unknown | + + + | Marital Status | | + + + | Church Affiliation | Unknown | + + + | Race | Unknown | + + + | Ethnic Group | Unknown | + + + Author + + + | Author | [facility] | | | and [place] | + + + | Organization | [facility] | | [...] Team Providers + +------+ + | Care Awning Erector Name | Role | Phone | + +------+ + | Luanne Love | PCP | | | PA | | | + +------+ + Reason for Referral Diagnostic/Screening (Emergency) + +--------+ + + + + | Status | Reason | Specialty | Diagnoses / | Referred By | Referred To | | | | | Procedures | Contact | Contact | + +--------+ + + + + | Authorized | | Radiology | Diagnoses | Chanel | [facility] [address] | | | | | Stage 3 | Maxx H, MD | [address] | | | | | chronic | [address] | [place], [place] | | | | | kidney | [address] | [address] | | | | | disease | [place], | Phone: | | | | | ([facility]) | [place] [address] | [phone] | | | | | Electrolyte | Phone: | Fax: | | | | | imbalance | [phone] | [phone] | | | | | risk | Fax: | | | | | | Abdominal | [phone] | | | | | | pain, | | | | | | | unspecified | | | | | | | abdominal | | | | | | | location | | | | | | | Procedures | | | | | | | CT Abdomen | | | | | | | Pelvis wo | | | | | | | Contrast | | | + +--------+ + + + + Encounter Details +--------+ + + + + | Date | Type | Department | Care Team | Description | +--------+ + + + + | 05/08/ | Orders Only | [facility] | Maxx Buchanan MD | Chronic kidney | | 2020 | | NEPHROLOGY [place] | [address] | disease, stage III | | | | [address] | [address] [place], [place] | (moderate) (Primary | | | | [address] [place], [place] | [address] | Dx); Electrolyte | | | | [address] | | imbalance risk; | | | | [phone] | | Abdominal pain, | | | | | | unspecified | | | | | | abdominal location | +--------+ + + + + Social [...] 2019 | Visit | | [address] [facility] | | | | | | [address] [place], [place] | | | | | | [address] | | | | | | | | +--------+---------+ + + + | 01/17/ | Office | Cardiology | Brianna Stewart | | | 2020 | Visit | | [address] | | | | | | [address] | | | | | | [place] [address] | | | | | | [phone] | | | | | | | | +--------+---------+ + + + + +---------+--------+ + + | Name | Type | Priori | Associated Diagnoses | Order Schedule | | | | ty | | | + +---------+--------+ + + | CT Abdomen Pelvis wo | Imaging | STAT | Chronic kidney | Expected: | | Contrast | | | disease, stage III | 08/04/2019, Expires: | | | | | (moderate) | 08/03/2020 | | | | | Electrolyte | | | | | | imbalance risk | | | | | | Abdominal pain, | | | | | | unspecified | | | | | | abdominal location | | + +---------+--------+ + + | Basic Metabolic | Lab | Routin | Chronic kidney | Expected: | | Panel | | e | disease, stage III | 08/11/2019, Expires: | | | | | (moderate) | 08/03/2020 | | | | | Electrolyte | | | | | | imbalance risk | | | | | | Abdominal pain, | | | | | | unspecified | | | | | | abdominal location | | + +---------+--------+ + + | CBC with | Lab | Routin | Chronic kidney | Expected: | | Differential | | e | disease, stage III | 08/04/2019, Expires: | | | | | (moderate) | 08/03/2020 | | | | | Electrolyte | | | | | | imbalance risk | | | | | | Abdominal pain, | | | | | | unspecified | | | | | | abdominal location | | + +---------+--------+ + + | Parathyroid Hormone, | Lab | Routin | Chronic kidney | Expected: | | Intact | | e | disease, stage III | 08/11/2019, Expires: | | | | | (moderate) | 08/03/2020 | | | | | Electrolyte | | | | | | imbalance risk | | | | | | Abdominal pain, | | | | | | unspecified | | | | | | abdominal location | | + +---------+--------+ + + | Urinalysis With | Lab | Routin | Chronic kidney | Expected: | | Microscopic | | e | disease, stage III | 08/11/2019, Expires: | | | | | (moderate) | 08/03/2020 | | | | | Electrolyte | | | | | | imbalance risk | | | | | | Abdominal pain, | | | | | | unspecified | | | | | | abdominal location | | + +---------+--------+ + + | Protein/Creatinine | Lab | Routin | Chronic kidney | Expected: | | Ratio, Urine | | e | disease, stage III | 08/11/2019, Expires: | | | | | (moderate) | 08/03/2020 | | | | | Electrolyte | | | | | | imbalance risk | | | | | | Abdominal pain, | | | | | | unspecified | | | | | | abdominal location | | + +---------+--------+ + + documented as of this encounter Visit Diagnoses + + | Diagnosis | + + | Chronic kidney disease, stage III (moderate) - Primary | + + | Electrolyte imbalance risk Other specified conditions influencing health status | + + | Abdominal pain, unspecified abdominal location | + + documented in this encounter"
--- OUTSIDE RECORDS SUMMARY | ~2019-08-30 | XMS | Encounter Summary ---
Demographics + + + | Address | [address] | | | [place] [address] | + + + | Home Phone | | + + + | Preferred Language | Unknown | + + + | Marital Status | | + + + | Hoahaoism Affiliation | Unknown | + + + | Race | Unknown | + + + | Ethnic Group | Unknown | + + + Author + + + | Author | [facility] | | | and [place] | + + + | Organization | [facility] | | | [...] Team Providers + +------+ + | Care Ditto Machine Operator Name | Role | Phone | + +------+ + | Luanne Love | PCP | | | PA | | | + +------+ + Encounter Details +--------+ + + + + | Date | Type | Department | Care Team | Description | +--------+ + + + + | 06/27/ | Orders Only | [facility] | Maxx Buchanan MD | Essential | | 2020 | | NEPHROLOGY [place] | [address] | hypertension | | | | [address] | [address] [place], [place] | (Primary Dx); | | | | [address] | [address] | Chronic kidney | | | | [place], [place] | | disease, stage III | | | | [address] | | (moderate) | | | | [phone] | | | +--------+ + + + [...] | | | | | | [address] [facility] | | | | | | [address] | | | | | | | | +--------+---------+ + + + | 01/17/ | Office | Cardiology | Brianna Stewart | | | 2019 | Visit | | [address] | | | | | | [address] | | | | | | [place] [address] | | | | | | [phone] | | | | | | | [...]
--- OUTSIDE RECORDS SUMMARY | ~2019-08-30 | XMS | Encounter Summary ---
Demographics + + + | Address | [address] | | | [place] [address] | + + + | Home Phone | | + + + | Preferred Language | Unknown | + + + | Marital Status | | + + + | Baptist Affiliation | Unknown | + + + | Race | Unknown | + + + | Ethnic Group | Unknown | + + + Author + + + | Author | [facility] | | | and [place] | + + + | Organization | [facility] | | | [...] Team Providers + +------+ + | Care Roofing Technician Name | Role | Phone | [...] Required | Required | | chronic | [employer] [address] | | | | | kidney | [address] | [address] | | | | | disease | [address] | [place], | | | | | ([facility]) | [place], [place] | [place] [address] | | | | | | [address] | Phone: | | | | | | Phone: | [phone] | | | | | | [phone] | Fax: | | | | | | Fax: | [phone] | | | | | | [phone] | | + + + + + + + Encounter Details +--------+---------+ + + + | Date | Type | Department | Care Team | Description | +--------+---------+ + + + | 08/03/ | Office | [facility] | Maxx Buchanan MD | Chronic kidney | | 2020 | Visit | NEPHROLOGY [place] | [address] [facility] | disease, stage III | | | | [address] | [address] [facility], [place] | (moderate) (Primary | | | | [address] | [address] | Dx); Generalized | | | | [place], [place] | | abdominal pain; | | | | [address] | | Electrolyte | | | | [phone] | | imbalance risk | +--------+---------+ + [...] a BMP, CBC, intact PTH, rU/A, Urine rxiifnpppkjw-st-yqldamrsqx ratio befor e she comes back in [...] conditions include: - CAD; without angina; of minto artery - hypertension; essential; with renal disease; 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 - past MT; occured more than 28 days prior to admission - renal disease; CKD; Stage 3 - neuromuscular disease - arthritis Past Medical History: Diagnosis Date Chronic kidney disease, stage III (moderate) ([facility]) 09/23/2015 Coronary artery disease Hyperlipidemia Hypertension Joint pain Neuromuscular disorder ([facility]) NSTEMI (non-ST elevated myocardial infarction) ([facility]) 05/19/2015 Thyroid disease No past surgical history [...] file Gets together: Not on file Attends religion service: Not on file Active member of [...] a BMP, CBC, intact PTH, rU/A, Urine hmmxaslidywz-fb-sedvkzqwhi ratio befor e she comes back in [...] | | | | | | [address] [facility] | | | | | | [address] | | | | | | | | +--------+---------+ + + + | 01/17/ | Office | Cardiology | Brianna Stewart | | | 2020 | Visit | | [address] | | | | | | [address] | | | | | | [place] [address] | | | | | | [phone] | | | | | | | [...]
--- OUTSIDE RECORDS SUMMARY | ~2019-08-30 | XMS | Encounter Summary ---
Demographics + + + | Address | [address] | | | [place] [address] | + + + | Home Phone | | + + + | Preferred Language | Unknown | + + + | Marital Status | | + + + | Amish Affiliation | Unknown | + + + | Race | Unknown | + + + | Ethnic Group | Unknown | + + + Author + + + | Author | [facility] | | | and [place] | + + + | Organization | [facility] | | [...] Team Providers + +------+ + | Care Splitter Machine Name | Role | Phone | + +------+ + | Luanne Love | PCP | | | PA | | | + +------+ + Encounter Details +--------+ + + + + | Date | Type | Department | Care Team | Description | +--------+ + + + + | 08/11/ | Orders Only | [facility] | Brianna Stewart | | | 2019 | | CARDIOLOGY [place] | [address] | | | | | [address] | [address] | | | | | [address] | [place] [address] | | | | | [place] | [phone] | | | | | [address] | | | | | | [phone] | | | +--------+ + + + [...] [place] | | | | | | [address] | | | | | | | | +--------+---------+ + + + | 01/17/ | Office | Cardiology | Brianna Stewart | | | 2019 | Visit | | [address] | | | | | | [address] | | | | | | [place] [address] | | | | | | [phone] | | | | | | | | +--------+---------+ + + + documented as of this encounter Visit Diagnoses Not on filedocumented in this encounter"
--- OUTSIDE RECORDS SUMMARY | ~2019-08-30 | XMS | Encounter Summary ---
Demographics + + + | Address | [address] | | | [place] [address] | + + + | Home Phone | | + + + | Preferred Language | Unknown | + + + | Marital Status | | + + + | Jainism Affiliation | Unknown | + + + | Race | Unknown | + + + | Ethnic Group | Unknown | + + + Author + + + | Author | [facility] | | | and [place] | + + + | Organization | [facility] | | | [...] Team Providers + +------+ + | Care Marble Chip Terrazzo Worker Name | Role | Phone | + +------+ + | Luanne Love | PCP | | | PA | | | + +------+ + Encounter Details +--------+ + + + + | Date | Type | Department | Care Team | Description | +--------+ + + + + | 08/11/ | Orders Only | [facility] | Brianna Stewart | | | 2019 | | CARDIOLOGY [place] | [address] | | | | | [address] | [address] | | | | | [address] | [place] [address] | | | | | [place] | [phone] | | | | | [address] | | | | | | [phone] | | | +--------+ + + + [...] [place] | | | | | | [address] | | | | | | | | +--------+---------+ + + + | 01/17/ | Office | Cardiology | Brianna Stewart | | | 2019 | Visit | | [address] | | | | | | [address] | | | | | | [place] [address] | | | | | | [phone] | | | | | | | | +--------+---------+ + + + documented as of this encounter Visit Diagnoses Not on filedocumented in this encounter"
--- OUTSIDE RECORDS SUMMARY | ~2019-08-30 | XMS | Encounter Summary ---
Demographics + + + | Address | [address] | | | [place] [address] | + + + | Home Phone | | + + + | Preferred Language | Unknown | + + + | Marital Status | | + + + | Oriental Orthodox Affiliation | Unknown | + + + | Race | Unknown | + + + | Ethnic Group | Unknown | + + + Author + + + | Author | [facility] | | | and [place] | + + + | Organization | [facility] | | [...] Team Providers + +------+ + | Care Aging Room Operator Name | Role | Phone | + +------+ + PCP | Unavailable | + +------+ + Encounter Details +--------+ + + + + | Date | Type | Department | Care Team | Description | +--------+ + + + + | 05/19/ | Hospital | [facility] | Maxx Barker MD | NSTEMI (non-ST | | 2016 - | Encounter | [facility] | [address] | elevated myocardial | | | | CARE FLOOR [address] | [place] [address] | infarction) ([facility]) | | 05/21/ | | JESUS ALBERTO MORA | [phone] | | | 2015 | | [place], [place] | | | | | | [address] | | | | | | [phone] | | | +--------+ + + + [...] Date of Service: 05/21/15 0917 Status: Signed Cancer Registrar: Maxx Barker MD (Physician) [facility] Service: Cardiology Discharge Summary Date of Admission: [...] with Dr. Collins as she lives in [place]. Referral to cardiac rehab as an outpatient. [...] are the prescriptions that you need to pickling solution maker. You may get the following medications from [...] Case Management by ANDREW Multani at 05/21/15 0330 Author: ANDREW Multani Service: (none) Author Type: Php Architect Filed: 05/21/15 1509 Date of Service: 05/21/15 1508 Status: Signed Cancer Registrar: ANDREW Multani (Php Architect) 05/21/15 1500 Discharge Planning Evaluation Admitting Diagnosis NSTEMI Anticipated Disposition Facility Type Home SYSTEMS ARCHITECTURE ANALYST met with Leonie NORRIS Nurse, states no discharge needs or concerns at this time. DCP: Home MAKENZIE IMER, Liner Replacer [phone] onver joseph Transaction, Provider Unknown - 05/21/2015 10:57 AM PST Nurse Progress Note by Leonie Tapia RN at 05/21/15 1057 Author: Leonie Tapia RN Service: (none) Author Type: Registered Nurse Filed: 05/21/15 1058 Date of Service: 05/21/15 1057 Status: Signed Cancer Registrar: Leonie Tapia RN (Registered Nurse) D/c instructions [...] Date of Service: 05/20/15 1347 Status: Signed Cancer Registrar: Cierra Caban RN (Registered Nurse) 05/20/15 134 Discharge Planning Evaluation Admitting Diagnosis NSTEMI Readmission [...] y.o., female who lives with spouse in [facility]. She is independent in all adl's [...] 05/19/151811 Date of Service: 05/19/151809 Status: Signed Cancer Registrar: Chapo Coles RN (Registered Nurse) VSS, pt [...] 05/19/151721 Date of Service: 05/19/151721 Status: Signed Cancer Registrar: Damaris Ritter RPH (Pharmacist) Clinical Pharmacy Note - Renal Dose Adjustment Damir Alejandro 84 y.o. female Ht Readings from Last 1 Encounters: 05/19/15 1.626 m (5' 4") Wt Readings from Last 1 Encounters: 05/19/15 61.78 kg (136 lb 3.2 oz) CREATININE Date Value Ref Range Status 05/19/2015 1.5* 0.50 - 1.00 mg/dL Final Comment: Testing performed at [facility];[address] [place] [address];[place] [address] CREATININE: 1.5 mg/dL ABNORMAL (05/19/15 1205) Estimated [...] 05/19/151707 Date of Service: 05/19/151703 Status: Signed Cancer Registrar: Chapo Coles RN (Registered Nurse) Pt arrived hypotensive from mason tender restoration labor. Bolus of NS started, pt placed in [...] 2019 | [facility] | [facility] [address] [facility] | | | | | [address] [place] | | | | | | [address] | | | | | | | | +--------+---------+ + + + | 01/17/ | Office | Cardiology | Brianna Stewart | | | 2019 | Visit | | [address] | | | | | | [address] | | | | | | [place] [address] | | | | | | [phone] | | | | | | | [...] EXTERNAL | | | | performed at [facility];[address] | | LAB | | | | [address];[place], [place] | | | | | | [address] | | | | + + + [...] | | | | | | ACUTE [place] CKTRP PHONED TO | | | | | | 4RP REINIER Chan AT 0625 BY | | | | | | LJREAD BACK RESULTS | | | | | | VERIFIEDTesting | | | | | | performed at [facility];[address] | | | | | | [address] [facility];[place], [place] | | | | | | [address] | | | | + + + [...] EXTERNAL | | | | performed at [facility];[address] | | LAB | | | | [address];[place] | | | | | | [address] | | | | + + + [...] | | LAB | | | | [facility];[address] [place] [address] | | | | | | [address];[place] [address] | | | | + + + [...] | | | | | | ACUTE [place] CALLED NURSING | | | | | | JENNIFER TARIQ AT | | | | | | 09:17 BY EW READ BACK | | | | | | RESULTS VERIFIEDTesting | | | | | | performed at [facility];[address] | | | | | | [address];[place] | | | | | | [address] | | | | + + + [...] EXTERNAL | | | | performed at [facility];[address] | | LAB | | | | [address];[place] | | | | | | [address] | | | | + + + [...] | | | ------REPORT ADDENDED------ INDICATIONS Acute [place] / Wall | | | motion abnormailty [...] 0.45 m/s TV | | | Dec Medina: 2.68 m/s2 TV Dec Time: 257.33 ms TV E Zack: 0.69 | | | m/s TV E/A Ratio: 1.50 Switch Cleaner: Authenticated by: Maxx | | | Malini DONOHUE Report Date/Time: 05-21-2015 09:31:01 | | + + + + + | Procedure Note | + + | Rogers Haddad - 11/10/2018 5:37 PM PDT Patient Name: ROGERS ALEJANDROEli of | | : 1930 Performing Physician: Maxx Barker | | MD ------REPORT | | ADDENDED------INDICATIONS Acute [place] / Wall motion abnormailty | | CONCLUSIONS [...] mlLAESV Index (A-L): 26.86 ml/m2LAAs A2C: 14.91 [id number] A-L | | A2C: 42.94 mlLALs A2C: 4.39 cmLAAs A4C: 13.05 [id number] A-L A4C: 31.55 mlLALs | | A4C: [...] Vmax: 2.19 cm2AVA (VTI): | | 2.30 [id number] Dopp: 4.35 l/[id number] Dopp: 6.09 l/minHR: 71.65 BPMLVOT maxPG: | [...] 0.82 m/sTV A Zack: 0.45 m/sTV Dec Medina: 2.68 | | m/s2TV Dec Time: 257.33 msTV E Zack: 0.69 m/sTV E/A Ratio: 1.50 Switch Cleaner: | | ASAuthenticated by: Maxx Ordazqaisi MDReport [...] A Zack: 0.45 m/s | |TV Dec Medina: 2.68 m/s2 | |TV Dec Time: 257.33 ms | |TV E Zack: 0.69 m/s | |TV E/A Ratio: 1.50 | | | |Switch Cleaner: | |Authenticated by: Maxx Barker MD | [...] | | | | | performed at [facility];[address] | | | | | | [address];[place], [place] | | | | | | [address] | | | | + + + [...] EXTERNAL | | | | performed at [facility];[address] | K/uL | LAB | | | | [address];[place] | | | | | | [address] | | | | + + + + + + | Red Blood | 3.27 (L)Comment: Testing | 3.70 - 5.10 | EXTERNAL | | | Cells | performed at [facility];[address] | M/uL | LAB | | | Counted | [address];[place] | | | | | | [address] | | | | + + + + + + | Hemoglobin | 8.7 (L)Comment: Testing | 11.3 - 15.5 | EXTERNAL | | | | performed at [facility];[address] | g/dL | LAB | | | | [address];[place] | | | | | | [address] | | | | + + + + + + | Hematocrit, | 27.8 (L)Comment: Testing | 34.0 - 46.0 % | EXTERNAL | | | POC | performed at [facility];[address] | | LAB | | | | [address];[place] | | | | | | [address] | | | | + + + + + + | MCV | 84.9Comment: Testing | 80.0 - 100.0 fl | EXTERNAL | | | | performed at [facility];[address] | | LAB | | | | [address];[place] | | | | | | [address] | | | | + + + + + + | MCH | 26.7 (L)Comment: Testing | 27.0 - 34.0 pg | EXTERNAL | | | | performed at [facility];[address] | | LAB | | | | [address];[place] | | | | | | [address] | | | | + + + + + + | MCHC | 31.5 (L)Comment: Testing | 32.0 - 35.5 | EXTERNAL | | | | performed at [facility];[address] | g/dL | LAB | | | | [address];[place] | | | | | | [address] | | | | + + + + + + | RDW-CV | 46.8Comment: Testing | 37 - 53 fl | EXTERNAL | | | | performed at [facility];[address] | | LAB | | | | [address];[place] | | | | | | [address] | | | | + + + + + + | Platelet | 207Comment: Testing | 150 - 400 K/uL | EXTERNAL | | | Count | performed at [facility];[address] | | LAB | | | Plasma | [address];[place] | | | | | | [address] | | | | + + + + + + | MPV | 8.1Comment: Testing | fl | EXTERNAL | | | | performed at [facility];[address] | | LAB | | | | [address];[place] | | | | | | [address] | | | | + + + + + + | Differentia | AUTOMATEDComment: | | EXTERNAL | | | l Type | Testing performed at | | LAB | | | | [facility];[address];[place] [address] | | | | + + + + + + | % Segmented | 73.07Comment: Testing | % | EXTERNAL | | | | performed at [facility];[address] | | LAB | | | Neutrophils | [address];[place] | | | | | | [address] | | | | + + + + + + | % | 15.96Comment: Testing | % | EXTERNAL | | | Lymphocytes | performed at [facility];[address] | | LAB | | | | [address];[place] | | | | | | [address] | | | | + + + + + + | % Monocytes | 9.56Comment: Testing | % | EXTERNAL | | | | performed at [facility];[address] | | LAB | | | | [address];[place] | | | | | | [address] | | | | + + + + + + | % | 1.00Comment: Testing | % | EXTERNAL | | | Eosinophils | performed at [facility];[address] | | LAB | | | | [address];[place] | | | | | | [address] | | | | + + + + + + | % Basophils | 0.41Comment: Testing | % | EXTERNAL | | | | performed at [facility];[address] | | LAB | | | | [address];[place] | | | | | | [address] | | | | + + + + + + | Absolute | 5.60Comment: Testing | 1.90 - 7.40 | EXTERNAL | | | Segmented | performed at [facility];[address] | K/uL | LAB | | | Neutrophils | [address];[place] | | | | | | [address] | | | | + + + + + + | Absolute | 1.22Comment: Testing | 1.00 - 3.90 | EXTERNAL | | | Lymphocytes | performed at [facility];[address] | K/uL | LAB | | | | [address];[place] | | | | | | [address] | | | | + + + + + + | Absolute | 0.73Comment: Testing | 0.00 - 0.80 | EXTERNAL | | | Monocytes | performed at [facility];[address] | K/uL | LAB | | | | [address];[place] | | | | | | [address] | | | | + + + + + + | Absolute | 0.08Comment: Testing | 0.00 - 0.50 | EXTERNAL | | | Eosinophils | performed at [facility];[address] | K/uL | LAB | | | | [address];[place] | | | | | | [address] | | | | + + + + + + | Absolute | 0.03Comment: Testing | 0.00 - 0.10 | EXTERNAL | | | Basophils | performed at [facility];[address] | K/uL | LAB | | | | [address];[place], [place] | | | | | | [address] | | | | + + + [...] + + | Historically converted procedure from [facility] environment | EXTERNAL LAB | + [...] at | | | | | | [facility];[address] | | | | | | [facility];[place], [place] | | | | | | [id number] ON 05/20 | | | | | [...] EXTERNAL | | | | performed at [facility];[address] | | LAB | | | | [address];[place], [place] | | | | | | [address] | | | | + + + [...] EXTERNAL | | | | performed at [facility] | | LAB | | | | [address];[place], [place] | | | | | | [address] | | | | + + + [...] | | | | | [place] [address] | | | | + + + + + + | Triglycerid | 216 (H)Comment: Testing | mg/dL | EXTERNAL | | | es | performed at [facility], [address] | | LAB | | | | [address], | | | | | | [place] [address] | | | | + + + + + + | HDL | 37 (L)Comment: Testing | mg/dL | EXTERNAL | | | | performed at [facility], [address] | | LAB | | | | [address], | | | | | | [place] [address] | | | | + + + + + + | LDL, | 59Comment: Testing | mg/dL | EXTERNAL | | | Calculated | performed at [facility], [address] | | LAB | | | | [address], | | | | | | [place] [address] | | | | + + + [...] EXTERNAL | | | | performed at [facility];[address] | mmol/L | LAB | | | | [address];[place] | | | | | | [address] | | | | + + + + + + | K | 4.3Comment: Testing | 3.5 - 4.9 | EXTERNAL | | | | performed at [facility];[address] | mmol/L | LAB | | | | [address];[place] | | | | | | [address] | | | | + + + + + + | Cl | 113 (H)Comment: Testing | 99 - 109 mmol/L | EXTERNAL | | | | performed at [facility];[address] | | LAB | | | | [address];[place] | | | | | | [address] | | | | + + + + + + | CO2 | 24Comment: Testing | 23 - 32 mmol/L | EXTERNAL | | | | performed at [facility];[address] | | LAB | | | | [address];[place] | | | | | | [address] | | | | + + + + + + | Anion Gap | 10Comment: Testing | 5 - 20 mmol/L | EXTERNAL | | | | performed at [facility];[address] | | LAB | | | | [address];[place] | | | | | | [address] | | | | + + + + + + | Glucose, | 85Comment: Testing | 65 - 99 mg/dL | EXTERNAL | | | Fasting | performed at [facility];[address] | | LAB | | | | [address];[place] | | | | | | [address] | | | | + + + + + + | BUN | 19Comment: Testing | 8 - 25 mg/dL | EXTERNAL | | | | performed at [facility];[address] | | LAB | | | | [address];[place] | | | | | | [address] | | | | + + + + + + | Creatinine | 1.2 (H)Comment: Testing | 0.50 - 1.00 | EXTERNAL | | | | performed at [facility];888 | mg/dL | LAB | | | | [address];[place] | | | | | | [address] | | | | + + + + + + | BUN/Creatin | 16Comment: Testing | | EXTERNAL | | | ine Ratio | performed at [facility];[address] | | LAB | | | | [address];[place] | | | | | | [address] | | | | + + + + + + | Calcium | 7.1 (L)Comment: Testing | 8.5 - 10.5 | EXTERNAL | | | | performed at [facility];[address] | mg/dL | LAB | | | | [address];[place] | | | | | | [address] | | | | + + + [...] | | | | | | at [facility];[address];[place] [address] | | | | + + + [...] | | LAB | | | | [facility];[address];[place] [address] | | | | + + + [...] | | | | | | ACUTE [place] RESULT READ | | | | | | BACK BY:MARK Lackey/JR ON | | | | | | [id number] AT 0051, | | | | | | VAPTesting performed at | | | | | | [facility];[address] [facility] | | | | | | [facility];[place] [address] | | | | + + + [...] EXTERNAL | | | | performed at [facility];[address] | | LAB | | | | [address];[place], [place] | | | | | | [address] | | | | + + + [...] [address];[place] [address] | | | | + + + [...] | | | | | | ACUTE [place] CALLED TO | | | | | | ZEN Barros ON 4RP AT 1920 | | | | | | BY CD, READ BACKTesting | | | | | | performed at [facility];[address] | | | | | | [facility];[place], [place] | | | | | | [address] | | | | + + + [...] EXTERNAL | | | | performed at [facility];[address] | | LAB | | | | [address];[place] | | | | | | [address] | | | | + + + [...] + + | Historically converted procedure from [facility] | EXTERNAL LAB | + + + [...] radial artery canalized with | | | 6-Citizen [place] cylinder sheath. 2.5 mg verapamil, 200 mcg nitroglycerin, | | | 5000 international units of heparin was given through the sheath. | | | Over 260 exchange wire, 5-Citizen [place] FL4 diagnostic catheter advanced to | | | the ascending aorta to selectively engage the left main. Contrast was | | | injected. Selective angiogram for the left main, LAD, left | | | circumflex artery performed in different views. Over the guidewire, | | | it was exchanged for a 5-Citizen [place] FR-4 diagnostic catheter addressed to | | [...] exchanged | | | for RC-4 SC 6-Citizen [place] guide that selectively engaged the RCA. A [...] 1% lidocaine. Right radial artery canalized with 6-Citizen [place] cylinder | | sheath. 2.5 mg verapamil, 200 mcg nitroglycerin, 5000 international units | | of heparin was given through the sheath. Over 260 exchange wire, 5-Citizen [place] | | FL4 diagnostic catheter advanced to the ascending aorta to selectively | | engage the left main. Contrast was injected. Selective angiogram for the | | left main, LAD, left circumflex artery performed in different views. Over | | the guidewire, it was exchanged for a 5-Citizen [place] FR-4 diagnostic catheter | | addressed to [...] the catheter was exchanged for RC-4 SC 6-Citizen [place] guide | | that selectively engaged the [...] radial artery canalized with | | | 6-Citizen [place] cylinder sheath. 2.5 mg verapamil, 200 mcg nitroglycerin, | | | 5000 international units of heparin was given through the sheath. | | | Over 260 exchange wire, 5-Citizen [place] FL4 diagnostic catheter advanced to | | | the ascending aorta to selectively engage the left main. Contrast was | | | injected. Selective angiogram for the left main, LAD, left | | | circumflex artery performed in different views. Over the guidewire, | | | it was exchanged for a 5-Citizen [place] FR-4 diagnostic catheter addressed to | | [...] exchanged | | | for RC-4 SC 6-Citizen [place] guide that selectively engaged the RCA. A [...] 1% lidocaine. Right radial artery canalized with 6-Citizen [place] cylinder | | sheath. 2.5 mg verapamil, 200 mcg nitroglycerin, 5000 international units | | of heparin was given through the sheath. Over 260 exchange wire, 5-Citizen [place] | | FL4 diagnostic catheter advanced to the ascending aorta to selectively | | engage the left main. Contrast was injected. Selective angiogram for the | | left main, LAD, left circumflex artery performed in different views. Over | | the guidewire, it was exchanged for a 5-Citizen [place] FR-4 diagnostic catheter | | addressed to [...] the catheter was exchanged for RC-4 SC 6-Citizen [place] guide | | that selectively engaged the [...] | | | Clotting | performed at [facility];[address] | seconds | LAB | | | time, POC | [address];[place] | | | | | | [address] | | | | + + + [...] | | | Clotting | performed at [facility];[address] | seconds | LAB | | | time, POC | [address];[place], [place] | | | | | | [address] | | | | + + + [...] 5:37 PM PDT DAMIR Garcia [facility]/[id number] yearsXR CHEST | | 1 VIEW05/19/2015 1:13 [...] | | | | | performed at [facility];[address] | | | | | | [address];[place], [place] | | | | | | [address] | | | | + + + [...] | | | | | performed at [facility];[address] | | | | | | [address];[place], [place] | | | | | | [address] | | | | + + + [...] EXTERNAL | | | | performed at [facility];888 | mmol/L | LAB | | | | [address];[place] | | | | | | [address] | | | | + + + + + + | K | 4.4Comment: Testing | 3.5 - 4.9 | EXTERNAL | | | | performed at [facility];888 | mmol/L | LAB | | | | [address];[place] | | | | | | [address] | | | | + + + + + + | Cl | 105Comment: Testing | 99 - 109 mmol/L | EXTERNAL | | | | performed at [facility];[address] | | LAB | | | | [address];[place] | | | | | | [address] | | | | + + + + + + | CO2 | 26Comment: Testing | 23 - 32 mmol/L | EXTERNAL | | | | performed at [facility];[address] | | LAB | | | | [address];[place] | | | | | | [address] | | | | + + + + + + | Anion Gap | 12Comment: Testing | 5 - 20 mmol/L | EXTERNAL | | | | performed at [facility];[address] | | LAB | | | | [address];[place] | | | | | | [address] | | | | + + + + + + | Glucose, | 95Comment: Testing | 65 - 99 mg/dL | EXTERNAL | | | Fasting | performed at [facility];[address] | | LAB | | | | [address];[place] | | | | | | [address] | | | | + + + + + + | BUN | 24Comment: Testing | 8 - 25 mg/dL | EXTERNAL | | | | performed at [facility];[address] | | LAB | | | | [address];[place] | | | | | | [address] | | | | + + + + + + | Creatinine | 1.5 (H)Comment: Testing | 0.50 - 1.00 | EXTERNAL | | | | performed at [facility];888 | mg/dL | LAB | | | | [address];[place] | | | | | | [address] | | | | + + + + + + | BUN/Creatin | 16Comment: Testing | | EXTERNAL | | | ine Ratio | performed at [facility];[address] | | LAB | | | | [address];[place] | | | | | | [address] | | | | + + + + + + | Calcium | 8.2 (L)Comment: Testing | 8.5 - 10.5 | EXTERNAL | | | | performed at [facility];888 | mg/dL | LAB | | | | [address];[place] | | | | | | [address] | | | | + + + [...] | | | | | | at [facility];[address] [place] [address] | | | | | | [facility];[place] [address] | | | | + + + [...] (500), | | | | | | videotape editor Bonnie Sánchez | | | | | | (15) on 05/19/2015 | | | | | | 4:21:25 PM | | | | + + + + + + + + | Specimen | + + | | + + + + + | Narrative | Performed At | + + + | Historically converted procedure from [facility] Epic environment | EXTERNAL LAB | + [...]
--- OUTSIDE RECORDS SUMMARY | ~2019-08-30 | XMS | Encounter Summary ---
Demographics + + + | Address | [address] | | | [place] [address] | + + + | Home Phone | | + + + | Preferred Language | Unknown | + + + | Marital Status | | + + + | Rastafari Affiliation | Unknown | + + + | Race | Unknown | + + + | Ethnic Group | Unknown | + + + Author + + + | Author | [facility] | | | and [place] | + + + | Organization | [facility] | | | and [...] Team Providers + +------+ + | Care Fisher Trot Line Name | Role | Phone | + +------+ + | Luanne Love | PCP | | | PA | | | + +------+ + Encounter Details +--------+ + + + + | Date | Type | Department | Care Team | Description | +--------+ + + + + | 09/09/ | Orders Only | [facility] | Aidan Becker, | | | 2018 | | CARDIOLOGY [place] | [address] | | | | | [address] | [place], [place] | | | | | [place], [place] | [address] | | | | | [address] | | | | | | [phone] | | | +--------+ + + + [...] [place] | | | | | | [address] | | | | | | | | +--------+---------+ + + + | 01/17/ | Office | Cardiology | Brianna Stewart | | | 2019 | Visit | | [address] | | | | | | [address] | | | | | | [place] [address] | | | | | | [phone] | | | | | | | | +--------+---------+ + + + documented as of this encounter Visit Diagnoses Not on filedocumented in this encounter"
--- OUTSIDE RECORDS SUMMARY | ~2019-08-30 | XMS | Encounter Summary ---
Demographics + + + | Address | [address] | | | [place] [address] | + + + | Home Phone | | + + + | Preferred Language | Unknown | + + + | Marital Status | | + + + | Uatsdin Affiliation | Unknown | + + + | Race | Unknown | + + + | Ethnic Group | Unknown | + + + Author + + + | Author | [facility] | | | and [place] | + + + | Organization | [facility] | | | and [...] Team Providers + +------+ + | Care Charge Account Identification Clerk Name | Role | Phone | + +------+ + | Luanne Love | PCP | | | PA | | | + +------+ + Encounter Details +--------+ + + + + | Date | Type | Department | Care Team | Description | +--------+ + + + + | 05/21/ | Orders Only | [facility] | Maxx Nayak MD | | | 2015 | | CARDIOLOGY [place] | [address] | | | | | [address] | [place] [address] | | | | | [place], [place] | [phone] | | | | | [address] | | | | | | [phone] | | | +--------+ + + + [...] [place] | | | | | | [id number] | | | | | | | | +--------+---------+ + + + | 01/17/ | Office | Cardiology | Brianna Stewart | | | 2019 | Visit | | [address] | | | | | | [address] | | | | | | [place] [address] | | | | | | [phone] | | | | | | | | +--------+---------+ + + + documented as of this encounter Visit Diagnoses Not on filedocumented in this encounter"
--- OUTSIDE RECORDS SUMMARY | ~2019-08-30 | XMS | Encounter Summary ---
Demographics + + + | Address | [address] | | | [place] [address] | + + + | Home Phone | | + + + | Preferred Language | Unknown | + + + | Marital Status | | + + + | Cheondoism Affiliation | Unknown | + + + | Race | Unknown | + + + | Ethnic Group | Unknown | + + + Author + + + | Author | [facility] | | | and [place] | + + + | Organization | [facility] | | | [...] Team Providers + +------+ + | Care Hose Handler Name | Role | Phone | + +------+ + | Luanne Love | PCP | | | PA | | | + +------+ + Reason for Visit + + + | Reason | Comments | + + + | Follow-up, Office | 2 month | | Visit | | + + + Encounter Details +--------+---------+ + + + | Date | Type | Department | Care Team | Description | +--------+---------+ + + + | 04/24/ | Office | [facility] | Greggeladio Brianna | Coronary artery | | 2020 | Visit | CARDIOLOGY [place] | [address] | disease involving | | | | [address] | [address] | [place] coronary | | | | [address] | [place] [address] | artery of [place] | | | | [place] | [phone] | heart without angina | | | | [address] | | pectoris (Primary | | | | [phone] | | Dx); S/P drug | | [...] | | | + +---+---+---+ + + + | Sex Assigned at [...] + + + | Blood Pressure | 118/76 | 04/24/2019 9:14 AM | | | | | PST | | + + + + + | Pulse | 57 | 04/24/2019 9:14 AM | | | | | PST | | + + + + + | Temperature | - | - | | + + + + + | Respiratory Rate | - | - | | + + + + + | Oxygen Saturation | 97% | 04/24/2019 9:14 AM | | | | | PST | | + + + + + | Inhaled Oxygen | - | - | | | Concentration | | | | + + + + + | Weight | 60.7 kg (133 lb 12.8 | 04/24/2019 9:14 AM | | | | oz) | PST | | + + + + + | Height | 162.6 cm (5' 4") | 04/24/2019 9:14 AM | | | | | PST | | + + + + + | Body Mass Index | 22.97 | 04/24/2019 9:14 AM | | | | | PST | | + + + + + documented in this encounter Patient Instructions Patient Instructions Brianna Stewart FNP - 04/24/2019 9:00 AM PSTI have ordered you fasting labs to be done at [facility] in 2 weeks , but can drink water prior to having la bs done I made changes to medications: I restarted Atorvastatin 40 mg, and I need you to go see you r eye Doctor, Dr. Jose Enrique Mariano to get changed from Timolol eye drops as making your heart rate too low with your beta stella pills Also see Luanne To ask about thyroid medication, and iron See me back in 3 weeks documented in this encounter Progress Notes Brianna Stewart, SENIOR CYTOGENETICS LABORATORY DIRECTOR - 04/24/2019 9:00 AM PSTFormatting of this note might be differe nt from the original. Date of visit: 04/24/2019 Primary Care Physician: REGINA Angeles CHIEF COMPLAINT: Chief Complaint Patient presents with Follow-up, Office Visit 2 month HISTORY OF PRESENT ILLNESS: Shoaib Bean , is an 88-year-old woman here today for medication refill as overdue f or follow up, and added on last minute today, as she had missed her follow-up last week. She is here with her , Jeffry, who contributed to history, as she reports that her m [place] can be poor.. Today, I reviewed all [...] to pursue this I saw her last in 2017 when I followed up with her about Echo results which had shown decline in EF, and likely had suffered increased infarct or ischemia after recent GIB 11/2017 secondary to acute diverticulitis , but did not wish angiogram, and I had requested she get GI clearance to restart ASA, and she was off Plavix, and had ordered lipid panel as not do ne, and she was to see me back in 2 months . I also suggested she follow up on elevated TSH of 29 with her PCP. Unfortunately she has been lost to follow-up until now though I see her Jeffry on a r egular basis Her current and previous testing and procedures are detailed below. She was seen in the emergency room February 11, 2019 left-sided chest pain. I reviewe d her ER documentation which noted that her chest pain was sharp and radiated to her back, s he had no vomiting or shortness of breath and she had taken an old sublingual nitro with no effect and sublingual nitro given to her in the emergency room also did not seem to help her . Her EKG was documented as normal sinus rhythm with a rate of [address]-T wave changes,and I reviewed it as detailed below. Her chest x-ray was reported as no acute findi ngs and no heart failure, and troponin was reported as negative x2.[facility] showed a normal CMP except for low potassium of 3.5, and elevated creatinine of 1.4 with GFR of 36, magnesium was slightly low at 1.9, and CBC was normal she was discharged home with instructions to follow-up with her lawn care worker, but I have not seen her until to day, and has not recently seen her PCP, and seems to be missing some of her medications, suc h as her thyroid medication. Today , she reports she has had no further episodes of chest pain since her emergency room visit, and denies any palpitations peripheral edema, dyspnea, dizziness, or syncope. Her h usband reports she has not had any recent falls. She also denies any signs or symptoms of s troke or TIA. She continues to suffer from poor memory, and seems to have not been following up regula rly with any of her medical providers. She has ongoing problems with abdominal pain and not entirely clear if she has had recen t follow-up on her Diverticulitis. He was seen by Giovanna Gomez on March 03, 2019 for gastritis type symptoms, and they w ere unable to reconcile her medication list at that time She brought her medications at the visit today and I reviewed them personally, and miss ing her atorvastatin, her thyroid medicine, her iron, and they are not sure why she is miss ing them, or if just not refilled as she has not followed up with providers. She is also No w on Timolol eye drops, which may be contributing to lower heart rate today. REVIEW OF SYSTEMS: Negative except for pertinent [...] Prior to Visit Medication Sig Dispense Refill aspirin (ASPIRIN LOW DOSE) 81 MG tablet Take 81 mg by mouth daily. atorvaSTATin (LIPITOR) 40 mg tablet Take 40 mg by mouth nightly. clopidogrel (PLAVIX) 75 mg tablet Take 75 mg by mouth Daily. cyanocobalamin (VITAMIN B-12) 1000 MCG tablet Take 1,000 mcg by mouth daily. famotidine (PEPCID) 20 mg tablet TAKE 1 TABLET BY MOUTH TWICE DAILY (Patient not taking : Reported on 04/24/2019) 180 tablet 1 isosorbide mononitrate (IMDUR) 30 mg ER tablet Take 30 mg by mouth Daily. levothyroxine (SYNTHROID) 100 mcg tablet Take 100 mcg by mouth Daily. levothyroxine (SYNTHROID) 75 MCG tablet Take 75 mcg by mouth every morning before break fast. metoprolol tartrate (LOPRESSOR) 25 mg tablet Take 25 mg by mouth 2 times daily. mirtazapine (REMERON) 15 MG tablet Take 1 tablet by mouth daily. nitroglycerin (NITROSTAT) 0.[address] 0.4 mg under the tongue as needed. simvastatin (ZOCOR) 20 mg tablet Take 1 tablet by mouth nightly. 30 tablet 1 timolol maleate (TIMOPTIC) 0.5% ophthalmic solution Place 1 drop into the left eye 2 ti mes daily. No facility-administered medications prior to visit. PHYSICAL EXAM: Wt Readings from Last 3 Encounters: 01/27/20 60.7 kg (133 lb 12.8 oz) 06/19/15 59.2 kg (130 lb 8 oz) Temp Readings from Last 3 Encounters: No data found for Temp BP Readings from Last 3 Encounters: 04/24/19 118/76 06/19/15 138/68 Pulse Readings from Last 3 Encounters: 04/24/19 57 06/19/15 66 Vital signs: 02/07/2018: [...] to absence of adequate TR jet. Mild CA. No pericardial or pleural effusion. IVC WNL, [...] previously , Otherwise stable rate 61 bpm, CA 134 ms, QRS 92 ms, QTC 430 ms EK11/27: ([facility]). Sinus rhythm with sinus arrhythmia, PVCs. T-wave inve rsion to inferior leads and lateral leads, less pronounced than EKG done in June and in the office today. Rate 67 bpm, CA 146 ms, QRS 82 ms, QTC 450 ms (personally reviewed by me and compared to previous EKG's) EK: Sinus bradycardia, stable T-wave inversion to inferior and lateral leads , rate 52 bpm, CA 142 ms, QRS 86 ms, QTC 427 ms (personally reviewed by me and compared to previous EKG's) EK02/07/2018: Normal sinus rhythm, stable T-wave inversion to inferolateral leads. Rate 64 bpm, CA 138 ms, QRS 90 ms, QTC 441 ms (personally reviewed by me and compared to previo us EKG 02/01/2017, rate is faster, otherwise similar morphology) EK02/11/2019:( [facility]) Normal sinus rhythm, nonspecific ST-T wave abnormality to infero lateral leads, stable. Rate 64 bpm, CA 136 ms, QRS 106 ms, QTC 437 ms, tracing personally r eviewed by me EK04/24/2019: Sinus bradycardia, ST and T wave abnormalities to inferior and anterolatera l leads, similar to previous EKG's, rate 6 bpm, CA 150 ms, QRS 80 ms, QTC 441 [...] 4.27, hemoglobin 13.1, hematocrit 39.1, platelets 260 ASSESSMENT & PLAN: She was here today with her as overdue for follow up, and needs medication refill s She has problems as detailed below Her EKG performed in the clinic today shows normal sinus rhythm at 56 bpm, and similar morphology to EKG performed in with stable T wave inversion to inferolateral leads, but mo re bradycardic today. I reviewed the EKG results in detail with her and her , and discussed that her timol ol eyedrops in combination with her metoprolol may be contributing to lower heart rates. I asked my medical device sales consultant to send a message through to her spiral machine operator Dr. Mariano to see if she could be changed to a different eyedrop, and I have also encouraged her and her h usband to follow-up with him as well. I also strongly encouraged her to see her regular PCP, Luanne Love, as she seems to be missing some of her important medications, such as her thyroid medication. She was on atorvastatin 40 mg per her pharmacy dispense report, and I have reordered this f or her. For her other O cardiac medications, I have continued Imdur 30 mg daily, metoprolol tartra te 25 mg twice daily, Plavix 75 mg daily, and she does not need to be on aspirin if she is on Plavix, and encouraged her to take it after she has eaten a full meal I did her an updated CMP, lipid panel, CBC to screen her for anemia, and TSH, as poorly co ntrolled thyroid disease can also contribute to bradycardia. I have asked for copies to be sent to her PCP, Luanne Love. I will see her back on May 15, but sooner if needed, and I will order her an updat ed echo after I see her back. Her short-term memory deficits seem to have increased since I saw her last and I fear that her 's memory is also failing, as he is also my patient 1. Coronary artery disease involving [place] coronary artery of [place] heart without angina pectoris 2. S/P drug eluting coronary stent placement 3. Essential hypertension 4. Mixed hyperlipidemia 5. History of PTCA 6. 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 Ischemic cardiomyopathy 8. History of non-ST elevation myocardial infarction (NSTEMI) 9. Chronic kidney disease, stage III (moderate) 10. Cognitive deficits 11. Hypothyroidism, unspecified type Orders Placed This Encounter Procedures Comprehensive Metabolic Panel Lipid Panel TSH, Reflex Free T4 ECG 12 lead The following portions of the patient's history were personally reviewed by me and updated as appropriate: EKG tracings, other specialty provider and PCP notes,any Hospital admission and discharge summaries, any ER records , current and previous cardiac testing and procedure reports and d josé miguel, home heart rate and blood pressure log, medication bottles brought to visit today pers onally reviewed by me. Allergies, current medications.labs Family history, past medical history, past social history, past surgical history. Problem list. This encounter was dictated with voice recognition software and may contain inadvertent rec ognition errors. Mimi CHAVEZ [facility] 04/24/2019 Pineda figueredo in this encounter Plan of Treatment +--------+---------+ + + + | Date | Type | Specialty | Care Team | Description | +--------+---------+ + + + | 11/07/ | Office | Nephrology | Maxx Buchanan MD | | 2019 | Visit | | [address] [facility] | | | | | | [address] [place], [place] | | | | | | [id number] | | | | | | | | +--------+---------+ + + + | 01/17/ | Office | Cardiology | Brianna Stewart | | | 2019 | Visit | | [address] | | | | | | [address] | | | | | | [place] [address] | | | | | | [phone] | | | | | | | | +--------+---------+ + + + + +------+--------+ + + | Name | Type | Priori | Associated Diagnoses | Order Schedule | | | | ty | | | + +------+--------+ + + | Comprehensive | Lab | Routin | Mixed | 1 Occurrences | | Metabolic Panel | | e | hyperlipidemia | starting 04/24/2019 | | | | | | until 04/24/2020 | + +------+--------+ + + | Lipid Panel | Lab | Routin | Mixed | 1 Occurrences | | | | e | hyperlipidemia | starting 04/24/2019 | | | | | | until 04/24/2020 | + +------+--------+ + + | TSH, Reflex Free T4 | Lab | Routin | Hypothyroidism, | Expected: | | | | e | unspecified type | 04/24/2019, Expires: | | | | | | 04/24/2020 | + +------+--------+ + + documented as of this encounter Procedures + +--------+ + + + | Procedure Name | Priori | Date/Time | Associated Diagnosis | Comments | | | ty | | | | + +--------+ + + + | ECG 12 LEAD | Routin | 04/24/2019 | Coronary artery | Results for this | | | e | 9:25 AM | disease involving | procedure are in the | | | | PST | [place] coronary | results section. | | | | | artery of [place] | | | | | | heart [...] | | | Cognitive deficits | | + +--------+ + + + documented in this encounter Results ECG 12 lead (04/24/2019 9:25 AM PST) + + + + + + | Component | Value | Ref Range | Performed | Pathologist | | | | | At | Signature | + + + + + + | VENTRICULAR | 56 | BPM | [facility] | | | RATE EKG | | | | | + + + + + + | ATRIAL RATE | 56 | BPM | [facility] | | + + + + + + | P-R | 150 | ms | [facility] | | | INTERVAL | | | | | + + + + + + | QRS | 80 | ms | [facility] | | | DURATION | | | | | + + + + + + | Q-T | 458 | ms | [facility] | | | INTERVAL | | | | | + + + + + + | Q-T | 441 | ms | [facility] | | | INTERVAL | | | | | | (CORRECTED) | | | | | + + + + + + | P WAVE AXIS | 71 | degrees | [facility] | | + + + + + + | QRS AXIS | 49 | degrees | [facility] | | + + + + + + | T AXIS | -83 | degrees | [facility] | | + + + + + + | INTERPRETAT | Please refer to | | [facility] | | | ION TEXT | Providers office visit | | | | | | note for Providers | | | | | | Interpretation.Confirmed | | | | | | by [facility] Read Only, | | | | | | [facility] Michelle ([id number]), | | | | | | fan mail editor Fuentes Mcgarry | | | | | | ([phone]) on 04/24/2019 | | | | | | 10:38:32 AM | | | | + + + [...] + + | Coronary artery disease involving [place] coronary artery of [place] heart without | | angina pectoris - [...]
--- OUTSIDE RECORDS SUMMARY | ~2019-08-30 | XMS | Encounter Summary ---
Demographics + + + | Address | [address] | | | [place] [address] | + + + | Home Phone | | + + + | Preferred Language | Unknown | + + + | Marital Status | | + + + | Restorationism Affiliation | Unknown | + + + | Race | Unknown | + + + | Ethnic Group | Unknown | + + + Author + + + | Author | [facility] | | | and [place] | + + + | Organization | [facility] | | | [...] Team Providers + +------+ + | Care Grinder Watch Parts Name | Role | Phone | + [...] | Radiology | Diagnoses | Chanel | [facility] [address] | | | | | Stage 3 | Maxx H, MD | [address] | | | | | chronic | [address] | [place], [place] | | | | | kidney | [address] | [address] | | | | | disease | [place], | Phone: | | | | | ([facility]) | [place] [address] | [phone] | | | | | Electrolyte | Phone: | Fax: | | | | | imbalance | [phone] | [phone] | | | | | risk | Fax: | | | | | | Abdominal | [phone] | | | | | | pain, [...] + | 05/08/ | Orders Only | [facility] | Maxx Buchanan MD | Chronic kidney | | 2020 | | NEPHROLOGY [place] | [address] | disease, stage III | | | | [address] | [address] [place], [place] | (moderate) (Primary | | | | [address] [place], [place] | [address] | Dx); Electrolyte | | | | [address] | | imbalance risk; | | | | [phone] | | Abdominal pain, | | | [...] 2019 | Visit | | [address] [facility] | | | | | | [address] [place], [place] | | | | | | [address] | | | | | | | | +--------+---------+ + + + | 01/17/ | Office | Cardiology | Brianna Stewart | | | 2020 | Visit | | [address] | | | | | | [address] | | | | | | [place] [address] | | | | | | [phone] | | | | | | | [...]
--- OUTSIDE RECORDS SUMMARY | ~2019-08-30 | XMS | Encounter Summary ---
Demographics + + + | Address | [address] | | | [place] [address] | + + + | Home Phone | | + + + | Preferred Language | Unknown | + + + | Marital Status | | + + + | Advent Affiliation | Unknown | + + + [...] Team Providers + +------+ + | Care Underwear Finisher Name | Role | Phone | + [...] | Radiology | Diagnoses | Chanel | [facility] [address] | | | | | Stage 3 | Maxx H, MD | [address] | | | | | chronic | [address] | [place], [place] | | | | | kidney | [address] | [address] | | | | | disease | [place], | Phone: | | | | | ([facility]) | [place] [address] | [phone] | | | | | Electrolyte | Phone: | Fax: | | | | | imbalance | [phone] | [phone] | | | | | risk | Fax: | | | | | | Abdominal | [phone] | | | | | | pain, [...] + | 05/08/ | Orders Only | [facility] | Maxx Buchanan MD | Chronic kidney | | 2020 | | NEPHROLOGY [place] | [address] | disease, stage III | | | | [address] | [address] [place], [place] | (moderate) (Primary | | | | [address] [place], [place] | [address] | Dx); Electrolyte | | | | [address] | | imbalance risk; | | | | [phone] | | Abdominal pain, | | | [...] 2019 | Visit | | [address] [facility] | | | | | | [address] [place], [place] | | | | | | [address] | | | | | | | | +--------+---------+ + + + | 01/17/ | Office | Cardiology | Brianna Stewart | | | 2020 | Visit | | [address] | | | | | | [address] | | | | | | [place] [address] | | | | | | [phone] | | | | | | | [...]
--- OUTSIDE RECORDS SUMMARY | ~2019-08-30 | XMS | Encounter Summary ---
Demographics + + + | Address | [address] | | | [place] [address] | + + + | Home Phone | | + + + | Preferred Language | Unknown | + + + | Marital Status | | + + + | Orthodoxy Affiliation | Unknown | + + + | Race | Unknown | + + + | Ethnic Group | Unknown | + + + Author + + + | Author | [facility] | | | and [place] | + + + | Organization | [facility] | | | [...] Team Providers + +------+ + | Care Pouncing Lathe Operator Name | Role | Phone | + +------+ + | Luanne Love | PCP | | | PA | | | + +------+ + Encounter Details +--------+ + + + + | Date | Type | Department | Care Team | Description | +--------+ + + + + | 11/11/ | Orders Only | [facility] | Brianna Stewart | 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; | | | | [address] | [address] | Atherosclerotic | | | | [address] | [place] [address] | heart disease of | | | | [place], [place] | [phone] | [place] coronary | | | | [address] | | artery with angina | | | | [phone] | | pectoris (HCC); Old | | [...] 2019 | Visit | | [address] [facility] [address] | | | | | | [address] [place] | | | | | | [address] | | | | | | | | +--------+---------+ + + + | 01/17/ | Office | Cardiology | Brianna Stewart | | | 2019 | Visit | | [address] | | | | | | [address] | | | | | | [place] [address] | | | | | | [phone] | | | | | | | [...] of | | | | | | [place] coronary | | | | | | [...] + + | 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
--- OUTSIDE RECORDS SUMMARY | ~2019-08-30 | XMS | Encounter Summary ---
Demographics + + + | Address | [address] | | | [place] [address] | + + + | Home Phone | | + + + | Preferred Language | Unknown | + + + | Marital Status | | + + + | Jain Affiliation | Unknown | + + + [...] Team Providers + +------+ + | Care Nurse Researcher Name | Role | Phone | + +------+ + | Luanne Love | PCP | | | PA | | | + +------+ + Encounter Details +--------+ + + + + | Date | Type | Department | Care Team | Description | +--------+ + + + + | 09/09/ | Orders Only | [facility] | Aidan Becker, | | | 2018 | | CARDIOLOGY [place] | [address] | | | | | [address] | [address] [place], [place] | | | | | [place], [place] | [address] | | | | | [address] | | | | | | [phone] | | | +--------+ + + + [...] [place] | | | | | | [address] | | | | | | | | +--------+---------+ + + + | 01/17/ | Office | Cardiology | Brianna Stewart | | | 2019 | Visit | | [address] | | | | | | [address] | | | | | | [place] [address] | | | | | | [phone] | | | | | | | | +--------+---------+ + + + documented as of this encounter Visit Diagnoses Not on filedocumented in this encounter"
--- OUTSIDE RECORDS SUMMARY | ~2019-08-30 | XMS | Encounter Summary ---
Demographics + + + | Address | [address] | | | [place] [address] | + + + | Home Phone [...] Team Providers + +------+ + | Care Process Controller Name | Role | Phone | + +------+ + | Luanne Love | PCP | | | PA | | | + +------+ + Encounter Details +--------+ + + + + | Date | Type | Department | Care Team | Description | +--------+ + + + + | 05/21/ | Orders Only | [facility] | Maxx Nayak MD | | | 2015 | | CARDIOLOGY [place] | [address] | | | | | [address] | [place] [address] | | | | | [place], [place] | [phone] | | | | | [address] | | | | | | [phone] | | | +--------+ + + + [...] [place] | | | | | | [address] | | | | | | | | +--------+---------+ + + + | 01/17/ | Office | Cardiology | Brianna Stewart | | | 2019 | Visit | | [address] | | | | | | [address] | | | | | | [place] [address] | | | | | | [phone] | | | | | | | | +--------+---------+ + + + documented as of this encounter Visit Diagnoses Not on filedocumented in this encounter"
--- OUTSIDE RECORDS SUMMARY | ~2019-08-30 | XMS | Clinical Summary ---
Demographics + + + | Address | [address] | | | [place] [address] | + + + | Home Phone | | + + + | Preferred Language | Unknown | + + + | Marital Status | | + + + | Islam Affiliation | Unknown | + + + | Race | Unknown | + + + | Ethnic Group | Unknown | + + + Author + + + | Author | [facility] | | | and [place] | + + + | Organization | [facility] | | | [...] Team Providers + +------+ + | Care Flatwork Feeder Name | Role | Phone | [...] abdomen 08/04/19) | | | | | Hamper Maker Machine | | +--------+ + + + + [...] Lane | | | | | | Hamper Maker Machine | | +--------+ + + + + | 07/12/ | Office | Cardiology | [place] | Coronary artery | | 2020 | Visit | | [address] | disease involving | | | | | | lummi coronary | | | | | | artery of lummi | | | | | | heart [...] | | | | | | [address] [facility] | | | | | | [address] | | | | | | | | +--------+---------+ + + + | 01/17/ | Office | Cardiology | [place] | | | 2019 | Visit | | [address] | | | | | | [address] | | | | | | [place] [address] | | | | | | [phone] | | | | | | | | +--------+---------+ + + + + + + + + | Health Maintenance | Due Date | Last Done | Comments | + + + + + | Vaccine: | | | | | Dtap/Tdap/Td (1 - | 4 | | | | Tdap) | | [...] | | + + + + + Procedures + +--------+ + + + [...] the | | | | PDT | lummi coronary | results section. | | | | | artery of lummi | | | | | | heart [...] 12:00 AM PDT)Only the most recent of 2 results within the time period is included. [...] | | | | | [place] ([id number]) on | | | | | | [...] +--------+ +---------+--------+ | MEDICARE | MEDICA | [id number] | 09/26/18 | [phone] | | Medica | | | RE | | 98-Pre | 5 | | re | | | PART A | | sent | | | | | | AND B | | | | | | + +--------+ +--------+ +---------+--------+ | [place] | AMERIC | [id number] | | [phone] | | Indemn | [...] +--------+ +---------+--------+ | MEDICARE | MEDICA | [id number] | 09/26/18 | [phone] | | Medica | | | RE | | 98-Pre | 5 | | re | | | PART A | | sent | | | | | | AND B | | | | | | + +--------+ +--------+ +---------+--------+ | MEDICARE SUPPLEMENT | MEDICA | [id number] | 09/27/19 | [phone] | | Indemn [...] Person | Self | [birth year] | [address] | | | al/Fam | | 1931 | [phone] | [place], [place] | | | manuel | | | 4 (Home) | [address] | + +--------+ +--------+ + + | Shoaib Juarez | Person | Self | [birth year] | [address] | | | al/Fam | | 1931 | [phone] | [place], [place] | | | manuel | | | 4 (Home) | [address] | + +--------+ +--------+ + + Advance Directives + + + + + | Type | Date Recorded | Patient | Explanation | | | | Apparatus Engineering Technologist | | + + + + + | Power of | | | | | Gymnastics Instructor | | | | + + + + + | Advance | | | | | Directive | | | | + + + + +
--- OUTSIDE RECORDS SUMMARY | ~2019-08-30 | XMS | Encounter Summary ---
Demographics + + + | Address | [address] | | | [place] [address] | + + + | Home Phone | | + + + | Preferred Language | Unknown | + + + | Marital Status | | + + + | Roman Catholic Affiliation | Unknown | + + + | Race | Unknown | + + + | Ethnic Group | Unknown | + + + Author + + + | Author | [facility] | | | and [place] | + + + | Organization | [facility] | | [...] Team Providers + +------+ + | Care Quality Assurance Assessor Name | Role | Phone | + +------+ + | Luanne Love | PCP | | | PA | | | + +------+ + Encounter Details +--------+ + + + + | Date | Type | Department | Care Team | Description | +--------+ + + + + | 08/11/ | Orders Only | [facility] | Brianna Stewart | | | 2019 | | CARDIOLOGY [place] | [address] | | | | | [address] | [address] | | | | | [address] | [place] [address] | | | | | [place] | [phone] | | | | | [address] | | | | | | [phone] | | | +--------+ + + + [...] [place] | | | | | | [address] | | | | | | | | +--------+---------+ + + + | 01/17/ | Office | Cardiology | Brianna Stewart | | | 2019 | Visit | | [address] | | | | | | [address] | | | | | | [place] [address] | | | | | | [phone] | | | | | | | | +--------+---------+ + + + documented as of this encounter Visit Diagnoses Not on filedocumented in this encounter"
--- OUTSIDE RECORDS SUMMARY | ~2019-08-30 | XMS | Encounter Summary ---
Demographics + + + | Address | [address] | | | [place] [address] | + + + | Home Phone | | + + + | Preferred Language | Unknown | + + + | Marital Status | | + + + | Gnosticism Affiliation | Unknown | + + + | Race | Unknown | + + + | Ethnic Group | Unknown | + + + Author + + + | Author | [facility] | | | and [place] | + + + | Organization | [facility] | | [...] Team Providers + +------+ + | Care Building Service Worker Name | Role | Phone | + +------+ + | Luanne Love | PCP | | | PA | | | + +------+ + Encounter Details +--------+ + + + + | Date | Type | Department | Care Team | Description | +--------+ + + + + | 08/06/ | Orders Only | [facility] | Maxx Buchanan MD | | | 2020 | | NEPHROLOGY [facility] | [address] [place] | | | | | [address] [place] | [address] [place], [place] | | | | | [address] [place], [place] | [address] | | | | | [address] | | | | | | [phone] | | | +--------+ + + + [...] [place] | | | | | | [address] | | | | | | | | +--------+---------+ + + + | 01/17/ | Office | Cardiology | Brianna Stewart | | | 2020 | Visit | | [address] | | | | | | [address] | | | | | | [place] [address] | | | | | | [phone] | | | | | | | | +--------+---------+ + + + documented as of this encounter Visit Diagnoses Not on filedocumented in this encounter"
--- OUTSIDE RECORDS SUMMARY | ~2019-08-30 | XMS | Encounter Summary ---
Demographics + + + | Address | [address] | | | [place] [address] | + + + | Home Phone | | + + + | Preferred Language | Unknown | + + + | Marital Status | | + + + | Yazdanism Affiliation | Unknown | + + + | Race | Unknown | + + + | Ethnic Group | Unknown | + + + Author + + + | Author | [facility] | | | and [place] | + + + | Organization | [facility] | | [...] Team Providers + +------+ + | Care Staff Registered Nurse Name | Role | Phone | + +------+ + | Luanne Love | PCP | | | PA | | | + +------+ + Encounter Details +--------+ + + + + | Date | Type | Department | Care Team | Description | +--------+ + + + + | 08/06/ | Orders Only | [facility] | Maxx Buchanan MD | | | 2020 | | [facility] | [address] [place] | | | | | [address] [place] | [address] [place], [place] | | | | | [address] [place], [place] | [address] | | | | | [address] | | | | | | [phone] | | | +--------+ + + + [...] [place] | | | | | | [address] | | | | | | | | +--------+---------+ + + + | 01/17/ | Office | Cardiology | [facility] | | | 2020 | Visit | | [address] | | | | | | [address] | | | | | | [place] [address] | | | | | | [phone] | | | | | | | | +--------+---------+ + + + documented as of this encounter Visit Diagnoses Not on filedocumented in this encounter"
--- OUTSIDE RECORDS SUMMARY | ~2019-08-30 | XMS | Encounter Summary ---
Demographics + + + | Address | [address] | | | [place] [address] | + + + | Home Phone [...] Team Providers + +------+ + | Care Pca Name | Role | Phone | + +------+ + | Luanne Love | PCP | | | PA | | | + +------+ + Encounter Details +--------+ + + + + | Date | Type | Department | Care Team | Description | +--------+ + + + + | 07/06/ | Orders Only | [facility] | Brianna Stewart | | | 2018 | | CARDIOLOGY [place] | Stefani, PROFESSOR OF VISUAL ARTS [address] | | | | | [address] | [address] | | | | | [address] | [place] [address] | | | | | [place] | [phone] | | | | | [address] | | | | | | [phone] | | | +--------+ + + + [...] [place] | | | | | | [address] | | | | | | | | +--------+---------+ + + + | 01/17/ | Office | Cardiology | [place] | | | 2019 | Visit | | [address] | | | | | | [address] | | | | | | [place] [address] | | | | | | [phone] | | | | | | | | +--------+---------+ + + + documented as of this encounter Visit Diagnoses Not on filedocumented in this encounter"
--- OUTSIDE RECORDS SUMMARY | ~2019-08-30 | XMS | Encounter Summary ---
Demographics + + + | Address | [address] | | | [place] [address] | + + + | Home Phone [...] | Organization | [facility] [...] Team Providers + +------+ + | Care Windshield Installer Name | Role | Phone | + [...] | | | | | artery | PRINTING PLATE CLERK [address] | | | | | | disease | [address] | | | | | | involving | [place] | | | | | | [place] | [place] | | | | | | coronary | [address] | | | | | | artery of | Phone: | | | | | | [place] heart | [phone] | | | | | | without | Fax: | | | | | | angina | [phone] | | | | | | pectoris [...] + + | 07/12/ | Office | [facility] | Brianna Stewart | Coronary artery | | 2019 | Visit | CARDIOLOGY [place] | [address] | disease involving | | | | [address] | [address] | [place] coronary | | | | [address] | [place] [address] | artery of [place] | | | | [place] | [phone] | heart without angina | | | | [address] | | pectoris (Primary | | | | [phone] | | Dx); S/P drug | | [...] you an Echo to be done at [facility] in November , and see me in [...] labs , and have referred her to pump technician Dr. Buchanan for a decline in her [...] home with instructions to follow-up with her field inspector, but did not see suzan oconnor until [...] to absence of adequate TR jet. Mild MN. No pericardial or pleural effusion. IVC WNL, [...] previously , Otherwise stable rate 61 bpm, MN 134 ms, QRS 92 ms, QTC 430 ms EK11/27: ([facility] ER). Sinus rhythm with sinus arrhythmia, PVC's. T-wave inv ersion to inferior leads and lateral leads, less pronounced than EKG done in June and in e office today. Rate 67 bpm, MN 146 ms, QRS 82 ms, QTC 450 ms (personally reviewed by me recinos d compared to previous EKG's) EK: Sinus bradycardia, stable T-wave inversion to inferior and lateral leads , rate 52 bpm, MN 142 ms, QRS 86 ms, QTC 427 ms (personally reviewed by me and compared to previous EKG's) EK02/07/2018: Normal sinus rhythm, stable T-wave inversion to inferolateral leads. Rate 64 bpm, MN 138 ms, QRS 90 ms, QTC 441 ms (personally reviewed by me and compared to previo us EKG 02/01/2017, rate is faster, otherwise similar morphology) EK02/11/2019:( [facility] ER) Normal sinus rhythm, nonspecific ST-T wave abnormality to infero lateral leads, stable. Rate 64 bpm, MN 136 ms, QRS 106 ms, QTC 437 ms, tracing personally r eviewed by me EK04/24/2019: Sinus bradycardia, ST and T wave abnormalities to inferior and anterolatera l leads, similar to previous EKG's, rate 56 bpm, MN 150 ms, QRS 80 ms, QTC 441 ms seen perso monica reviewed by me, and similar morphology to EKG performed in January 2019 and serum, an d as well as January 2018 EK07/13/2019: Normal sinus rhythm ,ongoing T wave inversions to lateral leads, previous T wave inversion to V3 resolved, ongoing T wave inversion to inferior leads. Rate 62 bpm, MN 136 ms, QRS 90 ms, QTC 432 [...] appointment to follow-up with Dr. Buchanan, the pump technician, on October 29. I have a gain [...] have her establish with one of the field inspector who comes to [place]. 1. Coronary artery disease involving [place] coronary artery of [place] heart without angina pectoris 2. S/P drug [...] for continuity of care purp frances [facility] 07/14/2019 Prince figueredo in this encounter Plan of Treatment +--------+---------+ + + + | Date | Type | Specialty | Care Team | Description | +--------+---------+ + + + | 11/07/ | Office | Nephrology | Maxx Buchanan MD | | 2019 | Visit | | [address] | | | | | | [address] [place], [place] | | | | | | [address] | | | | | | | | +--------+---------+ + + + | 01/17/ | Office | Cardiology | Brianna Stewart | | 2019 | Visit | | [address] | | | | | | [address] | | | | | | [place] [address] | | | | | | [phone] | | | | | | | [...] 11/28/2019, Expires: | | | | | [place] coronary | 07/12/2020 | | | | | artery of [place] | | | | | | heart [...] the | | | | PDT | [place] coronary | results section. | | | | | artery of [place] | | | | | | heart [...] | | | | | BRIANNA TOBAR ([id number]) on | | | | | | [...] + + | Coronary artery disease involving [place] coronary artery of [place] heart without | | angina pectoris - [...]
--- OUTSIDE RECORDS SUMMARY | ~2019-08-30 | XMS | Encounter Summary ---
Demographics + + + | Address | [address] | | | [place] [address] | + + + | Home Phone | | + + + | Preferred Language | Unknown | + + + | Marital Status | | + + + | Presybeterian Affiliation | Unknown | + + + | Race | Unknown | + + + | Ethnic Group | Unknown | + + + Author + + + | Author | [facility] | | | and [place] | + + + | Organization | [facility] | | | and [...] Team Providers + +------+ + | Care Antique Furniture Reproducer Name | Role | Phone | + +------+ + | Luanne Love | PCP | | | PA | | | + +------+ + Reason for Visit +---------+ + | Reason | Comments | +---------+ + | Results | 08/04/19 | +---------+ + Encounter Details +--------+ + + + + | Date | Type | Department | Care Team | Description | +--------+ + + + + | 08/03/ | Documentati | [facility] | Mercado, | Results (08/04/19) | | 2020 | on | NEPHROLOGY [place] | [facility] | | | | | [address] | Pharmacy Helper | | | | | [address] [facility] [place] | | | | | | [address] | | | | | | [phone] | | | +--------+ + + + [...] 2019 | Visit | | [address] [facility] | | | | | | [address] [place], [place] | | | | | | [address] | | | | | | | | +--------+---------+ + + + | 01/17/ | Office | Cardiology | Brianna Stewart | | | 2020 | Visit | | [address] | | | | | | [address] | | | | | | [place] [address] | | | | | | [phone] | | | | | | | [...] + + documented in this encounter Results CBC with Manual Differential (08/04/2019) + + [...] + + | Blood | + + documented in this encounter Visit Diagnoses Not on filedocumented in this encounter"
--- OUTSIDE RECORDS SUMMARY | ~2019-08-30 | XMS | Encounter Summary ---
Demographics + + + | Address | [address] | | | [place] [address] | + + + | Home Phone | | + + + | Preferred Language | Unknown | + + + | Marital Status | | + + + | Pentecostalism Affiliation | Unknown | + + + | Race | Unknown | + + + | Ethnic Group | Unknown | + + + Author + + + | Author | [facility] | | | and [place] | + + + | Organization | [facility] | | [...] Team Providers + +------+ + | Care Bumboater Name | Role | Phone | + [...] | | | | [place], [place] | [phone] | | | | | [address] | | | | | | [phone] | | | +--------+ + + + [...] 2020 | Visit | | [address] [facility] | | | | | | [address] [place] | | | | | | [address] | | | | | | | | +--------+---------+ + + + | 01/17/ | Office | Cardiology | Brianna Stewart | | | 2019 | Visit | | [address] | | | | | | [address] | | | | | | [place] [address] | | | | | | [phone] | | | | | | | | +--------+---------+ + + + documented as of this encounter Visit Diagnoses Not on filedocumented in this encounter"
--- OUTSIDE RECORDS SUMMARY | ~2019-08-30 | XMS | Encounter Summary ---
Demographics + + + | Address | [address] | | | [place] [address] | + + + | Home Phone | | + + + | Preferred Language | Unknown | + + + | Marital Status | | + + + | Latter Day Affiliation | Unknown | + + + | Race | Unknown | + + + | Ethnic Group | Unknown | + + + Author + + + | Author | [facility] | | | and [place] | + + + | Organization | [facility] | [...] Team Providers + +------+ + | Care Personal Consultant Name | Role | Phone | + +------+ + | Luanne Love | PCP | | | PA | | | + +------+ + Encounter Details +--------+ + + + + | Date | Type | Department | Care Team | Description | +--------+ + + + + | 11/11/ | Orders Only | [facility] | Brianna Stewart | 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; | | | | [address] | [address] | Atherosclerotic | | | | [address] | [place] [address] | heart disease of | | | | [place], [place] | [phone] | chilkat coronary | | | | [address] | | artery with angina | | | | [phone] | | pectoris (HCC); Old | | [...] 2019 | Visit | | [address] [facility] [address] | | | | | | [address] [place] | | | | | | [address] | | | | | | | | +--------+---------+ + + + | 01/17/ | Office | Cardiology | Brianna Stewart | | | 2019 | Visit | | [address] | | | | | | [address] | | | | | | [place] [address] | | | | | | [phone] | | | | | | | [...] of | | | | | | chilkat coronary | | | | | | [...] + + | 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
--- OUTSIDE RECORDS SUMMARY | ~2019-08-30 | XMS | Encounter Summary ---
Demographics + + + | Address | [address] | | | [place] [address] | + + + | Home Phone [...] Team Providers + +------+ + | Care Diagnostic Tech Name | Role | Phone | + [...] + + | 04/24/ | Office | [facility] | Greggeladio Brianna | Coronary artery | | 2020 | Visit | CARDIOLOGY [place] | [address] | disease involving | | | | [address] | [address] | cheesh-na coronary | | | | [address] | [place] [address] | artery of cheesh-na | | | | [place] | [phone] | heart without angina | | | | [address] | | pectoris (Primary | | | | [phone] | | Dx); S/P drug | | [...] you fasting labs to be done at [facility] in 2 weeks , but can drink [...] in this encounter Progress Notes Brianna [place], CHIP LOFT WORKER - 04/24/2019 9:00 AM PSTFormatting of this [...] history, as she reports that her m thorpe can be poor.. Today, I reviewed all [...] reported as negative x2.[facility] except for low potassium of 3.5, and elevated creatinine of 1.4 with GFR of 36, magnesium was slightly low at 1.9, and CBC was normal she was discharged home with instructions to follow-up with her sucker machine operator, but I have not seen her until [...] to absence of adequate TR jet. Mild UT. No pericardial or pleural effusion. IVC WNL, [...] previously , Otherwise stable rate 61 bpm, UT 134 ms, QRS 92 ms, QTC 430 ms EK11/27: ([facility]). Sinus rhythm with sinus arrhythmia, PVCs. T-wave inve rsion to inferior leads and lateral leads, less pronounced than EKG done in June and in the office today. Rate 67 bpm, UT 146 ms, QRS 82 ms, QTC 450 ms (personally reviewed by me and compared to previous EKG's) EK: Sinus bradycardia, stable T-wave inversion to inferior and lateral leads , rate 52 bpm, UT 142 ms, QRS 86 ms, QTC 427 ms (personally reviewed by me and compared to previous EKG's) EK02/07/2018: Normal sinus rhythm, stable T-wave inversion to inferolateral leads. Rate 64 bpm, UT 138 ms, QRS 90 ms, QTC 441 ms (personally reviewed by me and compared to previo us EKG 02/01/2017, rate is faster, otherwise similar morphology) EK02/11/2019:( [facility] ER) Normal sinus rhythm, nonspecific ST-T wave abnormality to infero lateral leads, stable. Rate 64 bpm, UT 136 ms, QRS 106 ms, QTC 437 ms, tracing personally r eviewed by me EK04/24/2019: Sinus bradycardia, ST and T wave abnormalities to inferior and anterolatera l leads, similar to previous EKG's, rate 6 bpm, UT 150 ms, QRS 80 ms, QTC 441 [...] lower heart rates. I asked my medical administrative specialist to send a message through to her fire extinguisher charger Dr. Mariano to see if she could [...] my patient 1. Coronary artery disease involving cheesh-na coronary artery of [place] heart without angina pectoris 2. S/P drug [...] contain inadvertent rec ognition errors. Mimi CHAVEZ [facility] 04/24/2019 Pineda figueredo in this encounter Plan of Treatment +--------+---------+ + + + | Date | Type | Specialty | Care Team | Description | +--------+---------+ + + + | 11/07/ | Office | Nephrology | Maxx Buchanan MD | | 2019 | Visit | | [address] [facility] | | | | | | [address] [place] [employer], [place] | | | | | | [address] | | | | | | | | +--------+---------+ + + + | 01/17/ | Office | Cardiology | Brianna Stewart | | | 2019 | Visit | | [address] | | | | | | [address] | | | | | | [place] [address] | | | | | | [phone] | | | | | | | [...] the | | | | PST | cheesh-na coronary | results section. | | | | | artery of cheesh-na | | | | | | heart [...] | | | | | by [employer] [place] Read Only, | | | | | | [employer] Michelle ([id number]), | | | | | | script editor Fuentes Mcgarry | | | | | | ([id number]) on 04/24/2019 | | | | | [...] + + | Coronary artery disease involving cheesh-na coronary artery of cheesh-na heart without | | angina pectoris - [...]
--- OUTSIDE RECORDS SUMMARY | ~2019-08-30 | XMS | Encounter Summary ---
Demographics + + + | Address | [address] | | | [place] [address] | + + + | Home Phone | | + + + | Preferred Language | Unknown | + + + | Marital Status | | + + + | Anabaptist Affiliation | Unknown | + + + | Race | Unknown | + + + | Ethnic Group | Unknown | + + + Author + + + | Author | [facility] | | | and [place] | + + + | Organization | [facility] | | | and [...] Team Providers + +------+ + | Care Construction Sales Manager Name | Role | Phone | [...] | | | | [place], [place] | [phone] | | | | | [address] | | | | | | [phone] | | | +--------+ + + + [...] 2020 | Visit | | [address] [facility] | | | | | | [address] [place], [place] | | | | | | [address] | | | | | | | | +--------+---------+ + + + | 01/17/ | Office | Cardiology | Brianna Stewart | | | 2019 | Visit | | [address] | | | | | | [address] | | | | | | [place] [address] | | | | | | [phone] | | | | | | | | +--------+---------+ + + + documented as of this encounter Visit Diagnoses Not on filedocumented in this encounter"
--- OUTSIDE RECORDS SUMMARY | ~2019-08-30 | XMS | Encounter Summary ---
Demographics + + + | Address | [address] | | | [place] [address] | + + + | Home Phone | | + + + | Preferred Language | Unknown | + + + | Marital Status | | + + + | Protestant Affiliation | Unknown | + + + | Race | Unknown | + + + | Ethnic Group | Unknown | + + + Author + + + | Author | [facility] | | | and [place] | + + + | Organization | [facility] | | | [...] Team Providers + +------+ + | Care Sap Gatherer Name | Role | Phone | + [...] + + | 04/24/ | Office | [facility] | Greggeladio Brianna | Coronary artery | | 2020 | Visit | CARDIOLOGY [place] | [address] | disease involving | | | | [address] | [address] | solomon coronary | | | | [address] | [place] [address] | artery of solomon | | | | [place] | [phone] | heart without angina | | | | [address] | | pectoris (Primary | | | | [phone] | | Dx); S/P drug | | [...] you fasting labs to be done at [facility] in 2 weeks , but can [...] in this encounter Progress Notes Brianna Stewart, CLOTH HAND - 04/24/2019 9:00 AM PSTFormatting of this [...] history, as she reports that her m [place] can be poor.. Today, I reviewed all [...] reported as negative x2.[facility] normal CMP except for low potassium of 3.5, and elevated creatinine of 1.4 with GFR of 36, magnesium was slightly low at 1.9, and CBC was normal she was discharged home with instructions to follow-up with her sane nurse, but I have not seen her until [...] to absence of adequate TR jet. Mild VA. No pericardial or pleural effusion. IVC WNL, [...] previously , Otherwise stable rate 61 bpm, VA 134 ms, QRS 92 ms, QTC 430 ms EK11/27: ([facility]). Sinus rhythm with sinus arrhythmia, PVCs. T-wave inve rsion to inferior leads and lateral leads, less pronounced than EKG done in June and in the office today. Rate 67 bpm, VA 146 ms, QRS 82 ms, QTC 450 ms (personally reviewed by me and compared to previous EKG's) EK: Sinus bradycardia, stable T-wave inversion to inferior and lateral leads , rate 52 bpm, VA 142 ms, QRS 86 ms, QTC 427 ms (personally reviewed by me and compared to previous EKG's) EK02/07/2018: Normal sinus rhythm, stable T-wave inversion to inferolateral leads. Rate 64 bpm, VA 138 ms, QRS 90 ms, QTC 441 ms (personally reviewed by me and compared to previo us EKG 02/01/2017, rate is faster, otherwise similar morphology) EK02/11/2019:( [facility] ER) Normal sinus rhythm, nonspecific ST-T wave abnormality to infero lateral leads, stable. Rate 64 bpm, VA 136 ms, QRS 106 ms, QTC 437 ms, tracing personally r eviewed by me EK04/24/2019: Sinus bradycardia, ST and T wave abnormalities to inferior and anterolatera l leads, similar to previous EKG's, rate 6 bpm, VA 150 ms, QRS 80 ms, QTC 441 [...] to lower heart rates. I asked my back office medical assistant to send a message through to her otologist Dr. Mariano to see if she could [...] my patient 1. 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 S/P drug [...] contain inadvertent rec ognition errors. Mimi CHAVEZ [facility] 04/24/2019 Pineda figueredo in this encounter Plan of Treatment +--------+---------+ + + + | Date | Type | Specialty | Care Team | Description | +--------+---------+ + + + | 11/07/ | Office | Nephrology | Maxx Buchanan MD | | 2019 | Visit | | [address] [facility] | | | | | | [address] [place], [place] | | | | | | [id number] | | | | | | | | +--------+---------+ + + + | 01/17/ | Office | Cardiology | Brianna Stewart | | | 2019 | Visit | | [address] | | | | | | [address] | | | | | | [place] [address] | | | | | | [phone] | | | | | | | [...] the | | | | PST | solomon coronary | results section. | | | | | artery of solomon | | | | | | heart [...] | | | | | by [facility] Wright Read Only, | | | | | | ICA Michelle ([id number]), | | | | | | editorial assistant Fuentes Mcgarry | | | | | | ([id number]) on 04/24/2019 | | | | | [...] + + | Coronary artery disease involving solomon coronary artery of solomon heart without | | angina pectoris - [...]
--- OUTSIDE RECORDS SUMMARY | ~2019-08-30 | XMS | Encounter Summary ---
Demographics + + + | Address | [address] | | | [place] [address] | + + + | Home Phone | | + + + | Preferred Language | Unknown | + + + | Marital Status | | + + + | Quaker Affiliation | Unknown | + + + | Race | Unknown | + + + | Ethnic Group | Unknown | + + + Author + + + | Author | [facility] | | | and [place] | + + + | Organization | [facility] | | | [...] Team Providers + +------+ + | Care Cathodic Protection Technician Name | Role | Phone | + +------+ + | Luanne Love | PCP | | | PA | | | + +------+ + Encounter Details +--------+ + + + + | Date | Type | Department | Care Team | Description | +--------+ + + + + | 06/27/ | Orders Only | [facility] | Maxx Buchanan MD | Essential | | 2020 | | NEPHROLOGY [place] | [address] [place] | hypertension | | | | [address] | [address] [place], [place] | (Primary Dx); | | | | [address] | [address] | Chronic kidney | | | | [place], [place] | | disease, stage III | | | | [address] | | (moderate) | | | | [phone] | | | +--------+ + + + [...] | | | | | | [facility] | | | | | | [address] | | | | | | | | +--------+---------+ + + + | 01/17/ | Office | Cardiology | Brianna Stewart | | | 2019 | Visit | | [address] | | | | | | [address] | | | | | | [place] [address] | | | | | | [phone] | | | | | | | [...]
--- OUTSIDE RECORDS SUMMARY | ~2019-08-30 | XMS | Encounter Summary ---
Demographics + + + | Address | [address] | | | [place] [address] | + + + | Home Phone [...] | Organization | [facility] [...] Team Providers + +------+ + | Care Loom Operator Name | Role | Phone | [...] | | | | [place], [place] | [phone] | | | | | [address] | | | | | | [phone] | | | +--------+ + + + [...] 2020 | Visit | | [address] [facility] | | | | | | [address] [place], [place] | | | | | | [address] | | | | | | | | +--------+---------+ + + + | 01/17/ | Office | Cardiology | Brianna Stewart | | | 2019 | Visit | | [address] | | | | | | [address] | | | | | | [place] [address] | | | | | | [phone] | | | | | | | | +--------+---------+ + + + documented as of this encounter Visit Diagnoses Not on filedocumented in this encounter"
--- OUTSIDE RECORDS SUMMARY | ~2019-08-30 | XMS | Encounter Summary ---
Demographics + + + | Address | [address] | | | [place] [address] | + + + | Home Phone | | + + + | Preferred Language | Unknown | + + + | Marital Status | | + + + | Mosque Affiliation | Unknown | + + + [...] Team Providers + +------+ + | Care Soaker Hides Name | Role | Phone | + [...] + + | 08/03/ | Documentati | [facility] | Mercado, | Results (08/04/19) | | 2020 | on | NEPHROLOGY [place] | [facility] | | | | | [address] | Meat Curer | | | | | [address] [facility] [place] | | | | | | [address] | | | | | | [phone] | | | +--------+ + + + [...] 2019 | Visit | | [address] [facility] | | | | | | [address] [place], [place] | | | | | | [address] | | | | | | | | +--------+---------+ + + + | 01/17/ | Office | Cardiology | Brianna Stewart | | | 2020 | Visit | | [address] | | | | | | [address] | | | | | | [place] [address] | | | | | | [phone] | | | | | | | [...]
--- OUTSIDE RECORDS SUMMARY | ~2019-08-30 | XMS | Encounter Summary ---
Demographics + + + | Address | [address] | | | [place] [address] | + + + | Home Phone [...] Team Providers + +------+ + | Care Banquet Prep Cook Name | Role | Phone | + [...] + + | 08/06/ | Documentati | [facility] | Rogelio, | Other (CT scan | | 2019 | on | NEPHROLOGY [place] | [address] | abdomen 08/04/19) | | | | [address] [place] | License Registration Examiner | | | | | [address] [place], [place] | | | | | | [address] | | | | | | [phone] | | | +--------+ + + + [...] [place] | | | | | | [address] | | | | | | (Fax) | | +--------+---------+ + + + | 01/17/ | Office | Cardiology | Brianna Stewart | | | 2019 | Visit | | [address] | | | | | | [address] | | | | | | [place] [address] | | | | | | [phone] | | | | | | | | +--------+---------+ + + + documented as of this encounter Visit Diagnoses Not on filedocumented in this encounter"
--- OUTSIDE RECORDS SUMMARY | ~2019-08-30 | XMS | Encounter Summary ---
Demographics + + + | Address | [address] | | | [place] [address] | + + + | Home Phone | | + + + | Preferred Language | Unknown | + + + | Marital Status | | + + + | Pentecostal Affiliation | Unknown | + + + [...] Providers + +------+ + | Care Antique Refinisher Name | Role | Phone | + [...] Required | Required | | chronic | HOT BILLET SHEAR [address]PERATOR [address] | | | | | kidney | [address] | [address] | | | | | disease | [place] | [place], | | | | | ([facility]) | [place], [place] | [place] [address] | | | | | | [address] | Phone: | | | | | | Phone: | [phone] | | | | | | [phone] | Fax: | | | | | | Fax: | [phone] | | | | | | [phone] | | + + + + + + + Encounter Details +--------+---------+ + + + | Date | Type | Department | Care Team | Description | +--------+---------+ + + + | 08/03/ | Office | [facility] | Maxx Buchanan MD | Chronic kidney | | 2020 | Visit | NEPHROLOGY [place] | [address] [facility] | disease, stage III | | | | [address] | [address] [facility], [place] | (moderate) (Primary | | | | [address] | [address] | Dx); Generalized | | | | [place], [place] | | abdominal pain; | | | | [address] | | Electrolyte | | | | [phone] | | imbalance risk | +--------+---------+ + [...] a BMP, CBC, intact PTH, rU/A, Urine lwiisjouexae-iv-hyzofaarqk ratio befor e she comes back in [...] conditions include: - CAD; without angina; of [place] artery - hypertension; essential; with renal disease; 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 - past MT; occured more than 28 days prior to admission - renal disease; CKD; Stage 3 - neuromuscular disease - arthritis Past Medical History: Diagnosis Date Chronic kidney disease, stage III (moderate) ([facility]) 09/23/2015 Coronary artery disease Hyperlipidemia Hypertension Joint pain Neuromuscular disorder ([facility]) NSTEMI (non-ST elevated myocardial infarction) ([facility]) 05/19/2015 Thyroid disease No past surgical history [...] file Gets together: Not on file Attends buddhist service: Not on file Active member of [...] a BMP, CBC, intact PTH, rU/A, Urine eysuetwuwczp-xy-wbqiaqyqvm ratio befor e she comes back in [...] | | | | | | [address] [facility] | | | | | | [address] | | | | | | | | +--------+---------+ + + + | 01/17/ | Office | Cardiology | Brianna Steawrt | | | 2020 | Visit | | [address] | | | | | | [address] | | | | | | [place] [address] | | | | | | [phone] | | | | | | | [...]
--- OUTSIDE RECORDS SUMMARY | ~2019-08-30 | XMS | Encounter Summary ---
Demographics + + + | Address | [address] | | | [place] [address] | + + + | Home Phone | | + + + | Preferred Language | Unknown | + + + | Marital Status | | + + + | Amish Affiliation | Unknown | + + + | Race | Unknown | + + + | Ethnic Group | Unknown | + + + Author + + + | Author | [facility] | | | and [place] | + + + | Organization | [facility] | | [...] Team Providers + +------+ + | Care Delicate Fabrics Presser Name | Role | Phone | + +------+ + | Luanne Love | PCP | | | PA | | | + +------+ + Encounter Details +--------+ + + + + | Date | Type | Department | Care Team | Description | +--------+ + + + + | 06/27/ | Orders Only | [facility] | Maxx Buchanan MD | Essential | | 2020 | | NEPHROLOGY [place] | [address] | hypertension | | | | [address] | [address] [place], [place] | (Primary Dx); | | | | [address] | [address] | Chronic kidney | | | | [place], [place] | | disease, stage III | | | | [address] | | (moderate) | | | | [phone] | | | +--------+ + + + [...] | | | | | | [address] [facility] | | | | | | [address] | | | | | | | | +--------+---------+ + + + | 01/17/ | Office | Cardiology | Brianna Stewart | | | 2019 | Visit | | [address] | | | | | | [address] | | | | | | [place] [address] | | | | | | [phone] | | | | | | | [...]
--- OUTSIDE RECORDS SUMMARY | ~2019-08-30 | XMS | Encounter Summary ---
Demographics + + + | Address | [address] | | | [place] [address] | + + + | Home Phone | | + + + | Preferred Language | Unknown | + + + | Marital Status | | + + + | Religion Affiliation | Unknown | + + + [...] Team Providers + +------+ + | Care Strike Operations Officer Name | Role | Phone | + +------+ + PCP | Unavailable | + +------+ + Encounter Details +--------+ + + + + | Date | Type | Department | Care Team | Description | +--------+ + + + + | 05/19/ | Hospital | [facility] | Maxx Barker MD | NSTEMI (non-ST | | 2016 - | Encounter | [facility] | [address] | elevated myocardial | | | | CARE FLOOR [address] | [place] [address] | infarction) ([facility]) | | 05/21/ | | JESUS ALBERTO MORA | [phone] | | | 2015 | | [place], [place] | | | | | | [address] | | | | | | [phone] | | | +--------+ + + + [...] Date of Service: 05/21/15 0917 Status: Signed Personalization Specialist: Maxx Barker MD (Physician) [facility] Service: Cardiology Discharge Summary Date of [...] with Dr. Collins as she lives in [place]. Referral to cardiac rehab as an outpatient. [...] are the prescriptions that you need to order picker/assembler. 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 DCP: Home MAKENZIE IMER, Securities Teller [phone] onver joseph Transaction, Provider Unknown - 05/21/2015 10:57 AM PST Nurse Progress Note by Leonie Tapia RN at 05/21/15 1057 Author: Leonie Tapia RN Service: (none) Author Type: Registered Nurse Filed: 05/21/15 1058 Date of Service: 05/21/15 1057 Status: Signed Personalization Specialist: Leonie Tapia RN (Registered Nurse) D/c instructions [...] Date of Service: 05/20/15 1347 Status: Signed Personalization Specialist: Cierra Caban RN (Registered Nurse) 05/20/15 1340 Discharge Planning Evaluation Admitting Diagnosis NSTEMI Readmission [...] y.o., female who lives with spouse in [facility]. She is independent in all adl's [...] 05/19/151811 Date of Service: 05/19/151809 Status: Signed Personalization Specialist: Chapo Coles RN (Registered Nurse) VSS, pt [...] 05/19/151721 Date of Service: 05/19/151721 Status: Signed Personalization Specialist: Damaris Ritter RPH (Pharmacist) Clinical Pharmacy Note - Renal Dose Adjustment Damir Alejandro 84 y.o. female Ht Readings from Last 1 Encounters: 05/19/15 1.626 m (5' 4") Wt Readings from Last 1 Encounters: 05/19/15 61.78 kg (136 lb 3.2 oz) CREATININE Date Value Ref Range Status 05/19/2015 1.5* 0.50 - 1.00 mg/dL Final Comment: Testing performed at [facility];[address] [place] [address];[place] [address] CREATININE: 1.5 mg/dL ABNORMAL (05/19/15 1205) Estimated [...] 05/19/151707 Date of Service: 05/19/151703 Status: Signed Personalization Specialist: Chapo Coles RN (Registered Nurse) Pt arrived hypotensive from mini lab operator. Bolus of NS started, pt placed in [...] 2019 | Visit | | [facility] | | | | | | [address] [place] | | | | | | [address] | | | | | | | | +--------+---------+ + + + | 01/17/ | Office | Cardiology | [facility] | | | 2019 | Visit | | [address] | | | | | | [address] | | | | | | [place] [address] | | | | | | [phone] | | | | | | | [...] EXTERNAL | | | | performed at [facility];[address] | | LAB | | | | [address];[place], [place] | | | | | | [address] | | | | + + + [...] | | | | | | ACUTE NV CKTRP PHONED TO | | | | | | 4RP REINIER Chan AT 0625 BY | | | | | | LJREAD BACK RESULTS | | | | | | VERIFIEDTesting | | | | | | performed at [facility];[address] | | | | | | [address] [facility];[place], [place] | | | | | | [address] | | | | + + + [...] EXTERNAL | | | | performed at [facility];[address] | | LAB | | | | [address];[place] | | | | | | [address] | | | | + + + [...] | | LAB | | | | [facility];[address] [place] [address] | | | | | | [address];[place] [address] | | | | + + + [...] | | | | | | ACUTE NV CALLED NURSING | | | | | | JENNIFER TARIQ AT | | | | | | 09:17 BY EW READ BACK | | | | | | RESULTS VERIFIEDTesting | | | | | | performed at [facility];[address] | | | | | | [address];[place] | | | | | | [address] | | | | + + + [...] EXTERNAL | | | | performed at [facility];[address] | | LAB | | | | [address];[place] | | | | | | [address] | | | | + + + [...] | | | ------REPORT ADDENDED------ INDICATIONS Acute NV / Wall | | | motion abnormailty [...] 0.45 m/s TV | | | Dec [place]han: 2.68 m/s2 TV Dec Time: 257.33 ms TV E Zack: 0.69 | | | m/s TV E/A Ratio: 1.50 Frame Wirer: Authenticated by: Maxx | | | Malini DONOHUE Report Date/Time: 05-21-2015 09:31:01 | | + + + + + | Procedure Note | + + | Rogers Haddad - 11/10/2018 5:37 PM PDT Patient Name: ROGERS ALEJANDROEli of | | : 1930 Performing Physician: Maxx Barker | | MD ------REPORT | | ADDENDED------INDICATIONS Acute NV / Wall motion abnormailty | | CONCLUSIONS [...] mlLAESV Index (A-L): 26.86 ml/m2LAAs A2C: 14.91 [id number] A-L | | A2C: 42.94 mlLALs A2C: 4.39 cmLAAs A4C: 13.05 [id number] A-L A4C: 31.55 mlLALs | | A4C: [...] Vmax: 2.19 cm2AVA (VTI): | | 2.30 hs3ERKO Dopp: 4.35 l/[id number] Dopp: 6.09 l/minHR: 71.65 BPMLVOT maxPG: | [...] 0.82 m/sTV A Zack: 0.45 m/sTV Dec Doniphan: 2.68 | | m/s2TV Dec Time: 257.33 msTV E Zack: 0.69 m/sTV E/A Ratio: 1.50 Frame Wirer: | | ASAuthenticated by: Maxx Ordazqaisi MDReport [...] A Zack: 0.45 m/s | |TV Dec Doniphan: 2.68 m/s2 | |TV Dec Time: 257.33 ms | |TV E Zack: 0.69 m/s | |TV E/A Ratio: 1.50 | | | |Frame Wirer: | |Authenticated by: Maxx Barker MD | [...] | | | | | performed at [facility];[address] | | | | | | [address];[place], [place] | | | | | | [address] | | | | + + + [...] EXTERNAL | | | | performed at [facility];[address] | K/uL | LAB | | | | [address];[place] | | | | | | [address] | | | | + + + + + + | Red Blood | 3.27 (L)Comment: Testing | 3.70 - 5.10 | EXTERNAL | | | Cells | performed at [facility];[address] | M/uL | LAB | | | Counted | [address];[place] | | | | | | [address] | | | | + + + + + + | Hemoglobin | 8.7 (L)Comment: Testing | 11.3 - 15.5 | EXTERNAL | | | | performed at [facility];[address] | g/dL | LAB | | | | [address];[place] | | | | | | [address] | | | | + + + + + + | Hematocrit, | 27.8 (L)Comment: Testing | 34.0 - 46.0 % | EXTERNAL | | | POC | performed at [facility];[address] | | LAB | | | | [address];[place] | | | | | | [address] | | | | + + + + + + | MCV | 84.9Comment: Testing | 80.0 - 100.0 fl | EXTERNAL | | | | performed at [facility];[address] | | LAB | | | | [address];[place] | | | | | | [address] | | | | + + + + + + | MCH | 26.7 (L)Comment: Testing | 27.0 - 34.0 pg | EXTERNAL | | | | performed at [facility];[address] | | LAB | | | | [address];[place] | | | | | | [address] | | | | + + + + + + | MCHC | 31.5 (L)Comment: Testing | 32.0 - 35.5 | EXTERNAL | | | | performed at [facility];[address] | g/dL | LAB | | | | [address];[place] | | | | | | [address] | | | | + + + + + + | RDW-CV | 46.8Comment: Testing | 37 - 53 fl | EXTERNAL | | | | performed at [facility];[address] | | LAB | | | | [address];[place] | | | | | | [address] | | | | + + + + + + | Platelet | 207Comment: Testing | 150 - 400 K/uL | EXTERNAL | | | Count | performed at [facility];[address] | | LAB | | | Plasma | [address];[place] | | | | | | [address] | | | | + + + + + + | MPV | 8.1Comment: Testing | fl | EXTERNAL | | | | performed at [facility];[address] | | LAB | | | | [address];[place] | | | | | | [address] | | | | + + + + + + | Differentia | AUTOMATEDComment: | | EXTERNAL | | | l Type | Testing performed at | | LAB | | | | [facility];[address];[place] [address] | | | | + + + + + + | % Segmented | 73.07Comment: Testing | % | EXTERNAL | | | | performed at [facility];[address] | | LAB | | | Neutrophils | [address];[place] | | | | | | [address] | | | | + + + + + + | % | 15.96Comment: Testing | % | EXTERNAL | | | Lymphocytes | performed at [facility];[address] | | LAB | | | | [address];[place] | | | | | | [address] | | | | + + + + + + | % Monocytes | 9.56Comment: Testing | % | EXTERNAL | | | | performed at [facility];[address] | | LAB | | | | [address];[place] | | | | | | [address] | | | | + + + + + + | % | 1.00Comment: Testing | % | EXTERNAL | | | Eosinophils | performed at [facility];[address] | | LAB | | | | [address];[place] | | | | | | [address] | | | | + + + + + + | % Basophils | 0.41Comment: Testing | % | EXTERNAL | | | | performed at [facility];[address] | | LAB | | | | [address];[place] | | | | | | [address] | | | | + + + + + + | Absolute | 5.60Comment: Testing | 1.90 - 7.40 | EXTERNAL | | | Segmented | performed at [facility];[address] | K/uL | LAB | | | Neutrophils | [address];[place] | | | | | | [address] | | | | + + + + + + | Absolute | 1.22Comment: Testing | 1.00 - 3.90 | EXTERNAL | | | Lymphocytes | performed at [facility];[address] | K/uL | LAB | | | | [address];[place] | | | | | | [address] | | | | + + + + + + | Absolute | 0.73Comment: Testing | 0.00 - 0.80 | EXTERNAL | | | Monocytes | performed at [facility];[address] | K/uL | LAB | | | | [address];[place] | | | | | | [address] | | | | + + + + + + | Absolute | 0.08Comment: Testing | 0.00 - 0.50 | EXTERNAL | | | Eosinophils | performed at [facility];[address] | K/uL | LAB | | | | [address];[place] | | | | | | [address] | | | | + + + + + + | Absolute | 0.03Comment: Testing | 0.00 - 0.10 | EXTERNAL | | | Basophils | performed at [facility];[address] | K/uL | LAB | | | | [address];[place], [place] | | | | | | [...] at | | | | | | [facility];[address] | | | | | | [facility];[place], [place] | | | | | | [id number] ON 05/20 | | | | | [...] EXTERNAL | | | | performed at [facility];[address] | | LAB | | | | [address];[place], [place] | | | | | | [address] | | | | + + + [...] EXTERNAL | | | | performed at [facility] | | LAB | | | | [address];[place], [place] | | | | | | [address] | | | | + + + [...] | | | | | [place] [address] | | | | + + + + + + | Triglycerid | 216 (H)Comment: Testing | mg/dL | EXTERNAL | | | es | performed at [facility], [address] | | LAB | | | | [address], | | | | | | [place] [address] | | | | + + + + + + | HDL | 37 (L)Comment: Testing | mg/dL | EXTERNAL | | | | performed at [facility], [address] | | LAB | | | [address], | | | | | | [place] [address] | | | | + + + + + + | LDL, | 59Comment: Testing | mg/dL | EXTERNAL | | | Calculated | performed at [facility], [address] | | LAB | | | | [address], | | | | | | [place] [address] | | | | + + + [...] EXTERNAL | | | | performed at [facility];[address] | mmol/L | LAB | | | | [address];[place] | | | | | | [address] | | | | + + + + + + | K | 4.3Comment: Testing | 3.5 - 4.9 | EXTERNAL | | | | performed at [facility];[address] | mmol/L | LAB | | | | [address];[place] | | | | | | [address] | | | | + + + + + + | Cl | 113 (H)Comment: Testing | 99 - 109 mmol/L | EXTERNAL | | | | performed at [facility];[address] | | LAB | | | | [address];[place] | | | | | | [address] | | | | + + + + + + | CO2 | 24Comment: Testing | 23 - 32 mmol/L | EXTERNAL | | | | performed at [facility];[address] | | LAB | | | | [address];[place] | | | | | | [address] | | | | + + + + + + | Anion Gap | 10Comment: Testing | 5 - 20 mmol/L | EXTERNAL | | | | performed at [facility];[address] | | LAB | | | | [address];[place] | | | | | | [address] | | | | + + + + + + | Glucose, | 85Comment: Testing | 65 - 99 mg/dL | EXTERNAL | | | Fasting | performed at [facility];[address] | | LAB | | | | [address];[place] | | | | | | [address] | | | | + + + + + + | BUN | 19Comment: Testing | 8 - 25 mg/dL | EXTERNAL | | | | performed at [facility];[address] | | LAB | | | | [address];[place] | | | | | | [address] | | | | + + + + + + | Creatinine | 1.2 (H)Comment: Testing | 0.50 - 1.00 | EXTERNAL | | | | performed at [facility];[address] | mg/dL | LAB | | | | [address];[place] | | | | | | [address] | | | | + + + + + + | BUN/Creatin | 16Comment: Testing | | EXTERNAL | | | ine Ratio | performed at [facility];[address] | | LAB | | | | [address];[place] | | | | | | [address] | | | | + + + + + + | Calcium | 7.1 (L)Comment: Testing | 8.5 - 10.5 | EXTERNAL | | | | performed at [facility];[address] | mg/dL | LAB | | | | [address];[place] | | | | | | [address] | | | | + + + [...] | | | | | | at [facility];[address];[place] [address] | | | | + + + [...] | | LAB | | | | [facility];[address];[place] [address] | | | | + + + [...] | | | | | | ACUTE NV RESULT READ | | | | | | BACK BY:MARK Lackey/JR ON | | | | | | [id number] AT 0051, | | | | | | VAPTesting performed at | | | | | | [facility];[address] [facility] | | | | | | [facility];[place] [address] | | | | + + + [...] EXTERNAL | | | | performed at [facility];[address] | | LAB | | | | [address];[place], [place] | | | | | | [address] | | | | + + + [...] [address];[place] [address] | | | | + + + [...] | | | | | | ACUTE NV CALLED TO | | | | | | ZEN Barros ON 4RP AT 1920 | | | | | | BY CD, READ BACKTesting | | | | | | performed at [facility];[address] | | | | | | [facility];[place], [place] | | | | | | [address] | | | | + + + [...] EXTERNAL | | | | performed at [facility];[address] | | LAB | | | | [address];[place] | | | | | | [address] | | | | + + + [...] + + | Historically converted procedure from [facility] | EXTERNAL LAB | + + + [...] radial artery canalized with | | | 6-Salvadorean cylinder sheath. 2.5 mg verapamil, 200 mcg nitroglycerin, | | | 5000 international units of heparin was given through the sheath. | | | Over 260 exchange wire, 5-Salvadorean FL4 diagnostic catheter advanced to | | | the ascending aorta to selectively engage the left main. Contrast was | | | injected. Selective angiogram for the left main, LAD, left | | | circumflex artery performed in different views. Over the guidewire, | | | it was exchanged for a 5-Salvadorean FR-4 diagnostic catheter addressed to | | [...] exchanged | | | for RC-4 SC 6-Salvadorean guide that selectively engaged the RCA. A [...] 1% lidocaine. Right radial artery canalized with 6-Salvadorean cylinder | | sheath. 2.5 mg verapamil, 200 mcg nitroglycerin, 5000 international units | | of heparin was given through the sheath. Over 260 exchange wire, 5-Salvadorean | | FL4 diagnostic catheter advanced to the ascending aorta to selectively | | engage the left main. Contrast was injected. Selective angiogram for the | | left main, LAD, left circumflex artery performed in different views. Over | | the guidewire, it was exchanged for a 5-Salvadorean FR-4 diagnostic catheter | | addressed to [...] the catheter was exchanged for RC-4 SC 6-Salvadorean guide | | that selectively engaged the [...] radial artery canalized with | | | 6-Salvadorean cylinder sheath. 2.5 mg verapamil, 200 mcg nitroglycerin, | | | 5000 international units of heparin was given through the sheath. | | | Over 260 exchange wire, 5-Salvadorean FL4 diagnostic catheter advanced to | | | the ascending aorta to selectively engage the left main. Contrast was | | | injected. Selective angiogram for the left main, LAD, left | | | circumflex artery performed in different views. Over the guidewire, | | | it was exchanged for a 5-Salvadorean FR-4 diagnostic catheter addressed to | | [...] exchanged | | | for RC-4 SC 6-Salvadorean guide that selectively engaged the RCA. A [...] 1% lidocaine. Right radial artery canalized with 6-Salvadorean cylinder | | sheath. 2.5 mg verapamil, 200 mcg nitroglycerin, 5000 international units | | of heparin was given through the sheath. Over 260 exchange wire, 5-Salvadorean | | FL4 diagnostic catheter advanced to the ascending aorta to selectively | | engage the left main. Contrast was injected. Selective angiogram for the | | left main, LAD, left circumflex artery performed in different views. Over | | the guidewire, it was exchanged for a 5-Salvadorean FR-4 diagnostic catheter | | addressed to [...] the catheter was exchanged for RC-4 SC 6-Salvadorean guide | | that selectively engaged the [...] | | | Clotting | performed at [facility];[address] | seconds | LAB | | | time, POC | [address];[place] | | | | | | [address] | | | | + + + [...] | | | Clotting | performed at [facility];[address] | seconds | LAB | | | time, POC | [address];[place], [place] | | | | | | [address] | | | | + + + [...] - 11/10/2018 5:37 PM PDT DAMIR Garcia [facility]/[id number] yearsXR CHEST | | 1 VIEW05/19/2015 1:13 [...] | | | | | performed at [facility];[address] | | | | | | [address];[place], [place] | | | | | | [address] | | | | + + + [...] | | | | | performed at [facility];[address] | | | | | | [address];[place], [place] | | | | | | [address] | | | | + + + [...] EXTERNAL | | | | performed at [facility];[address] | mmol/L | LAB | | | | [address];[place] | | | | | | [address] | | | | + + + + + + | K | 4.4Comment: Testing | 3.5 - 4.9 | EXTERNAL | | | | performed at [facility];[address] | mmol/L | LAB | | | | [address];[place] | | | | | | [address] | | | | + + + + + + | Cl | 105Comment: Testing | 99 - 109 mmol/L | EXTERNAL | | | | performed at [facility];[address] | | LAB | | | | [address];[place] | | | | | | [address] | | | | + + + + + + | CO2 | 26Comment: Testing | 23 - 32 mmol/L | EXTERNAL | | | | performed at [facility];[address] | | LAB | | | | [address];[place] | | | | | | [address] | | | | + + + + + + | Anion Gap | 12Comment: Testing | 5 - 20 mmol/L | EXTERNAL | | | | performed at [facility];[address] | | LAB | | | | [address];[place] | | | | | | [address] | | | | + + + + + + | Glucose, | 95Comment: Testing | 65 - 99 mg/dL | EXTERNAL | | | Fasting | performed at [facility];[address] | | LAB | | | | [address];[place] | | | | | | [address] | | | | + + + + + + | BUN | 24Comment: Testing | 8 - 25 mg/dL | EXTERNAL | | | | performed at [facility];[address] | | LAB | | | | [address];[place] | | | | | | [address] | | | | + + + + + + | Creatinine | 1.5 (H)Comment: Testing | 0.50 - 1.00 | EXTERNAL | | | | performed at [facility];[address] | mg/dL | LAB | | | | [address];[place] | | | | | | [address] | | | | + + + + + + | BUN/Creatin | 16Comment: Testing | | EXTERNAL | | | ine Ratio | performed at [facility];[address] | | LAB | | | | [address];[place] | | | | | | [address] | | | | + + + + + + | Calcium | 8.2 (L)Comment: Testing | 8.5 - 10.5 | EXTERNAL | | | | performed at [facility];888 | mg/dL | LAB | | | | [address];[place] | | | | | | [address] | | | | + + + [...] | | | | | | at [facility];[address] [place] [address] | | | | | | [facility];[place] [address] | | | | + + + [...] (500), | | | | | | design editor Bonnie Sánchez | | | | | | (15) on 05/19/2015 | | | | | | 4:21:25 PM | | | | + + + + + + + + | Specimen | + + | | + + + + + | Narrative | Performed At | + + + | Historically converted procedure from [facility] Epic environment | EXTERNAL LAB | [...]
--- OUTSIDE RECORDS SUMMARY | ~2019-08-30 | XMS | Clinical Summary ---
Demographics + + + | Address | [address] | | | [place] [address] | + + + | Home Phone | | + + + | Preferred Language | Unknown | + + + | Marital Status | | + + + | Yarsani Affiliation | Unknown | + + + | Race | Unknown | + + + | Ethnic Group | Unknown | + + + Author + + + | Author | [facility] | | | and [place] | + + + | Organization | [facility] | | | and [...] Team Providers + +------+ + | Care Audio Engineer Name | Role | Phone | [...] abdomen 08/04/19) | | | | | Load [place]ier | | +--------+ + + + + [...] Lane | | | | | | [place] | | +--------+ + + + + | 07/12/ | Office | Cardiology | [place] [facility] | 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 | | | | | artery of [place] | | | | | | heart [...] | | | | | [place] (4057) on | | | | | | [...] +--------+ +---------+--------+ | MEDICARE | MEDICA | [id number] | 09/26/18 | [phone] | | Medica | | | RE | | 98-Pre | 5 | | re | | | PART A | | sent | | | | | | AND B | | | | | | + +--------+ +--------+ +---------+--------+ | [place] | AMERIC | [id number] | | [phone] | | Indemn | [...] +--------+ +---------+--------+ | MEDICARE | MEDICA | [id number] | 09/26/18 | [phone] | | Medica | | | RE | | 98-Pre | 5 | | re | | | PART A | | sent | | | | | | AND B | | | | | | + +--------+ +--------+ +---------+--------+ | MEDICARE SUPPLEMENT | MEDICA | [id number] | 09/27/19 | [phone] | | Indemn [...] [place] | | | 4 (Home) | [address] | + +--------+ +--------+ + + | Shoaib Juarez | Person | Self | [birth year] | [address] | | | al/Fam | | 1931 | [phone] | [place], [place] | | | manuel | | | 4 (Home) | [address] | + +--------+ +--------+ + + Advance Directives + + + + + | Type | Date Recorded | Patient | Explanation | | | | Supervisor [place] | | + + + + + | Power of | | | | | Assistant Research Scientist | | | | + + + + + | Advance | | | | | Directive | | | | + + + + +
--- OUTSIDE RECORDS SUMMARY | ~2019-08-30 | XMS | Encounter Summary ---
Demographics + + + | Address | [address] | | | [place] [address] | + + + | Home Phone | | + + + | Preferred Language | Unknown | + + + | Marital Status | | + + + | Presybeterian Affiliation | Unknown | + + + | Race | Unknown | + + + | Ethnic Group | Unknown | + + + Author + + + | Author | [facility] | | | and [place] | + + + | Organization | [facility] | | [...] Team Providers + +------+ + | Care Host Name | Role | Phone | + [...] MICHELLE KAUFMAN | | | | | [place], [place] | [place] [address] | | | | | [address] | [phone] | | | | | [phone] | | | +--------+ + + + [...] [place] | | | | | | [id number] | | | | | | | | +--------+---------+ + + + | 01/17/ | Office | Cardiology | Brianna Stewart | | | 2019 | Visit | | [address] | | | | | | [address] | | | | | | [place] [address] | | | | | | [phone] | | | | | | | [...] MV A Zack: 0.91 m/s MV Dec [place]: | | | 3.30 m/s2 MV DecT: 110.08 ms MV E Zack: 0.36 m/s MV E/A Ratio: | | | 0.39 MV PHT: 31.92 ms MVA By PHT: 6.89 cm2 Septal e': | | | 0.02 m/s Septal E/e': 17.87 Sales Training Manager: DBS Authenticated | | | by: Aidan [facility] Report Date/Time: 01-27-2018 20:31:19 | | + [...] | | cmLVPWd: 0.48 cmLVOT Area: 3.17 [id number] Diam: 2.01 cm%FS: 13.00 %EF(Teich): | | 27.65 %ESV(Teich): 100.79 mlLVIDs: 4.66 cmSV(Teich): 38.53 mlRVIDd: 2.57 | | cmLAESV(A-L): 31.09 mlLAESV Index (A-L): 19.31 ml/m2LAAs A2C: 11.42 el7TLSPL A-L | | A2C: 27.79 mlLALs A2C: 3.98 cmLAAs A4C: 12.18 vp8GMLEZ A-L A4C: 33.17 mlLALs | | A4C: 3.80 cmRAAs: 8.87 [id number] A-L: 20.88 mlRAESV MOD: 21.09 mlRALs: 3.19 | | cmTAPSE: 1.39 cmAV maxP.26 mmHgAV meanP.80 mmHgAV Vmax: 1.03 m/Damaris | | Vmean: 0.61 m/Damaris VTI: 18.51 cmAVA Vmax: 1.99 cm2AVA (VTI): 2.59 mj3EGED (Vmax): | | 0.00 cm2/m2AVAI (VTI): 0.00 cm2/m2LVOT maxP.68 mmHgLVOT meanP.91 | | mmHgLVSI Dopp: 29.78 ml/m2LVSV Dopp: 47.95 mlLVOT Vmax: 0.64 m/sLVOT Vmean: 0.44 | | m/sLVOT VTI: 15.11 cmMV A Zack: 0.91 m/sMV Dec [place]: 3.30 m/s2MV DecT: 110.08 | | msMV E Zack: 0.36 m/sMV E/A Ratio: 0.39MV PHT: 31.92 msMVA By PHT: 6.89 yd5Appuzl | | e': 0.02 m/sSeptal E/e': 17.87 Sales Training Manager: DBSAuthenticated by: Aidan | | [facility] Date/Time: 01-27-2018 20:31:19 IMPRESSION: 1. The left [...] A Zack: 0.91 m/s | |MV Dec [place]: 3.30 m/s2 | |MV DecT: 110.08 ms | |MV E Zack: 0.36 m/s | |MV E/A Ratio: 0.39 | |MV PHT: 31.92 ms | |MVA By PHT: 6.89 cm2 | |Septal e': 0.02 m/s | |Septal E/e': 17.87 | | | |Sales Training Manager: DBS | |Authenticated by: Aidan Becker | [...]
--- OUTSIDE RECORDS SUMMARY | ~2019-08-30 | XMS | Encounter Summary ---
Demographics + + + | Address | [address] | | | [place] [address] | + + + | Home Phone [...] Team Providers + +------+ + | Care Anodize Machine Operator Name | Role | Phone | + +------+ + | Luanne Love | PCP | | | PA | | | + +------+ + Encounter Details +--------+ + + + + | Date | Type | Department | Care Team | Description | +--------+ + + + + | 05/21/ | Orders Only | [facility] | Maxx Nayak MD | | | 2015 | | CARDIOLOGY [place] | [address] | | | | | [address] | [place] [address] | | | | | [place], [place] | [phone] | | | | | [address] | | | | | | [phone] | | | +--------+ + + + [...] [place] | | | | | | [address] | | | | | | | | +--------+---------+ + + + | 01/17/ | Office | Cardiology | Brianna Stewart | | | 2019 | Visit | | [address] | | | | | | [address] | | | | | | [place] [address] | | | | | | [phone] | | | | | | | | +--------+---------+ + + + documented as of this encounter Visit Diagnoses Not on filedocumented in this encounter"
--- OUTSIDE RECORDS SUMMARY | ~2019-08-30 | XMS | Encounter Summary ---
Demographics + + + | Address | [address] | | | [place] [address] | + + + | Home Phone | | + + + | Preferred Language | Unknown | + + + | Marital Status | | + + + | Muslim Affiliation | Unknown | + + + | Race | Unknown | + + + | Ethnic Group | Unknown | + + + Author + + + | Author | [facility] | | | and [place] | + + + | Organization | [facility] | | | [...] Team Providers + +------+ + | Care Jointer Machine Name | Role | Phone | + +------+ + | Luanne Love | PCP | | | PA | | | + +------+ + Encounter Details +--------+ + + + + | Date | Type | Department | Care Team | Description | +--------+ + + + + | 02/01/ | Orders Only | [facility] | Brianna Stewart | | | 2017 | | CARDIOLOGY [place] | Stefani, MARBLE MACHINE TENDER [address] | | | | | [address] | [address] | | | | | [address] | [place] [address] | | | | | [place] | [phone] | | | | | [address] | | | | | | [phone] | | | +--------+ + + + [...] [place] | | | | | | [address] | | | | | | | | +--------+---------+ + + + | 01/17/ | Office | Cardiology | Brianna Stewart | | | 2019 | Visit | | [address] | | | | | | [address] | | | | | | [place] [address] | | | | | | [phone] | | | | | | | | +--------+---------+ + + + documented as of this encounter Visit Diagnoses Not on filedocumented in this encounter"
--- OUTSIDE RECORDS SUMMARY | ~2019-08-30 | XMS | Encounter Summary ---
Demographics + + + | Address | [address] | | | [place] [address] | + + + | Home Phone | | + + + | Preferred Language | Unknown | + + + | Marital Status | | + + + | Pentecostalism Affiliation | Unknown | + + + | Race | Unknown | + + + | Ethnic Group | Unknown | + + + Author + + + | Author | [facility] | | | and [place] | + + + | Organization | [facility] | | | [...] Team Providers + +------+ + | Care Clinical Lab Specialist Name | Role | Phone | [...] MICHELLE KAUFMAN | | | | | [place], [place] | [place] [address] | | | | | [address] | [phone] | | | | | [phone] | | | +--------+ + + + [...] [place] | | | | | | [address] | | | | | | | | +--------+---------+ + + + | 01/17/ | Office | Cardiology | Brianna Stewart | | | 2019 | Visit | | [address] | | | | | | [address] | | | | | | [place] [address] | | | | | | [phone] | | | | | | | [...] MV A Zack: 0.91 m/s MV Dec [place]: | | | 3.30 m/s2 MV DecT: 110.08 ms MV E Zack: 0.36 m/s MV E/A Ratio: | | | 0.39 MV PHT: 31.92 ms MVA By PHT: 6.89 cm2 Septal e': | | | 0.02 m/s Septal E/e': 17.87 Digital Media Intern: DBS Authenticated | | | by: Aidan [facility] Report Date/Time: 01-27-2018 20:31:19 | [...] | | cmLVPWd: 0.48 cmLVOT Area: 3.17 [id number] Diam: 2.01 cm%FS: 13.00 %EF(Teich): | | 27.65 %ESV(Teich): 100.79 mlLVIDs: 4.66 cmSV(Teich): 38.53 mlRVIDd: 2.57 | | cmLAESV(A-L): 31.09 mlLAESV Index (A-L): 19.31 ml/m2LAAs A2C: 11.42 mf7GEIRA A-L | | A2C: 27.79 mlLALs A2C: 3.98 cmLAAs A4C: 12.18 if7SAFSQ A-L A4C: 33.17 mlLALs | | A4C: 3.80 cmRAAs: 8.87 av4OJHSH A-L: 20.88 mlRAESV MOD: 21.09 mlRALs: 3.19 | | cmTAPSE: 1.39 cmAV maxP.26 mmHgAV meanP.80 mmHgAV Vmax: 1.03 m/Damaris | | Vmean: 0.61 m/Damaris VTI: 18.51 cmAVA Vmax: 1.99 cm2AVA (VTI): 2.59 tc5EAQZ (Vmax): | | 0.00 cm2/m2AVAI (VTI): 0.00 cm2/m2LVOT maxP.68 mmHgLVOT meanP.91 | | mmHgLVSI Dopp: 29.78 ml/m2LVSV Dopp: 47.95 mlLVOT Vmax: 0.64 m/sLVOT Vmean: 0.44 | | m/sLVOT VTI: 15.11 cmMV A Zack: 0.91 m/sMV Dec [place]: 3.30 m/s2MV DecT: 110.08 | | msMV E Zack: 0.36 m/sMV E/A Ratio: 0.39MV PHT: 31.92 msMVA By PHT: 6.89 pw6Axrgej | | e': 0.02 m/sSeptal E/e': 17.87 Digital Media Intern: DBSAuthenticated by: Aidan | | [facility] Date/Time: 01-27-2018 20:31:19 IMPRESSION: 1. The [...] A Zack: 0.91 m/s | |MV Dec [place]: 3.30 m/s2 | |MV DecT: 110.08 ms | |MV E Zack: 0.36 m/s | |MV E/A Ratio: 0.39 | |MV PHT: 31.92 ms | |MVA By PHT: 6.89 cm2 | |Septal e': 0.02 m/s | |Septal E/e': 17.87 | | | |Digital Media Intern: DBS | |Authenticated by: Aidan Becker | [...]
--- OUTSIDE RECORDS SUMMARY | ~2019-08-30 | XMS | Clinical Summary ---
Demographics + + + | Address | [address] | | | [place] [address] | + + + | Home Phone | | + + + | Preferred Language | Unknown | + + + | Marital Status | | + + + | Worship Affiliation | Unknown | + + + [...] Team Providers + +------+ + | Care Artificial Intelligence Specialist Name | Role | Phone | [...] abdomen 08/04/19) | | | | | Tear Down Matcher | | +--------+ + + + + [...] Lane | | | | | | Tear Down Matcher | | +--------+ + + + + | 07/12/ | Office | Cardiology | [place] | Coronary artery | | 2020 | Visit | | [address] | disease involving | | | | | | [place] coronary | | | | | | artery of [place] | | | | | | heart [...] | | | | | | [address] [facility] [address] | | | | | | [address] | | | | | | | | +--------+---------+ + + + | 01/17/ | Office | Cardiology | [place] | | | 2019 | Visit | | [address] | | | | | | [address]HELLE KAUFMAN | | | | | | [place] [address] | | | | | | [phone] | | | | | | | [...] the | | | | PDT | [place] coronary | results section. | | | | | artery of [place] | | | | | | heart [...] | | | | | [place] ([id number]) on | | | | | | [...] +--------+ +---------+--------+ | MEDICARE | MEDICA | [id number] | 09/26/18 | [phone] | | Medica | | | RE | | 98-Pre | 5 | | re | | | PART A | | sent | | | | | | AND B | | | | | | + +--------+ +--------+ +---------+--------+ | [place] | AMERIC | [id number] | | [phone] | | Indemn | [...] +--------+ +---------+--------+ | MEDICARE | MEDICA | [id number] | 09/26/18 | [phone] | | Medica | | | RE | | 98-Pre | 5 | | re | | | PART A | | sent | | | | | | AND B | | | | | | + +--------+ +--------+ +---------+--------+ | MEDICARE SUPPLEMENT | MEDICA | [id number] | 09/27/19 | [phone] | | Indemn [...] manuel | | | 4 (Home) | [address] | + +--------+ +--------+ + + | Shoaib Juarez | Person | Self | [birth year] | [address] | | | al/Fam | | 1931 | [phone] | [place], [place] | | | manuel | | | 4 (Home) | [address] | + +--------+ +--------+ + + Advance Directives + + + + + | Type | Date Recorded | Patient | Explanation | | | | Interlocking And Signal Mechanic | | + + + + + | Power of | | | | | Nuclear Medicine Technologist | | | | + + + + + | Advance | | | | | Directive | | | | + + + + +
--- OUTSIDE RECORDS SUMMARY | ~2019-08-30 | XMS | Clinical Summary ---
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 | | | | | artery of [place] | | | | | | heart [...] | | | | | [place] (7896) on | | | | | | [...] +--------+ +---------+--------+ | MEDICARE | MEDICA | [id number] | 09/26/18 | [phone] | | Medica | | | RE | | 98-Pre | 5 | | re | | | PART A | | sent | | | | | | AND B | | | | | | + +--------+ +--------+ +---------+--------+ | [place] | AMERIC | [id number] | | [phone] | | Indemn | [...] +--------+ +---------+--------+ | MEDICARE | MEDICA | [id number] | 09/26/18 | [phone] | | Medica | | | RE | | 98-Pre | 5 | | re | | | PART A | | sent | | | | | | AND B | | | | | | + +--------+ +--------+ +---------+--------+ | MEDICARE SUPPLEMENT | MEDICA | [id number] | 09/27/19 | [phone] | | Indemn [...] manuel | | | 4 (Home) | [address] | + +--------+ +--------+ + + | Shoaib Juarez | Person | Self | [birth year] | [address] | | | al/Fam | | 1931 | [phone] | [place], [place] | | | manuel | | | 4 (Home) | [address] | + +--------+ +--------+ + + Advance Directives + + + + + | Type | Date Recorded | Patient | Explanation | | | | Foam Caster | | + + + + + | Power of | | | | | Heating Plant Superintendent | | | | + + + + + | Advance | | | | | Directive | | | | + + + + +
--- OUTSIDE RECORDS SUMMARY | ~2019-08-30 | XMS | Encounter Summary ---
Demographics + + + | Address | [address] | | | [place] [address] | + + + | Home Phone [...] Team Providers + +------+ + | Care Bond Writer Name | Role | Phone | [...] | | | [address] | [address]HELLE [address] | | | | | [place], [place] | [place] [address] | | | | | [address] | [phone] | | | | | [phone] | | | +--------+ + + + [...] [place] | | | | | | [address] | | | | | | | | +--------+---------+ + + + | 01/17/ | Office | Cardiology | Brianna Stewart | | | 2019 | Visit | | [address] | | | | | | [address] | | | | | | [place] [address] | | | | | | [phone] | | | | | | | [...] MV A Zack: 0.91 m/s MV Dec [place]: | | | 3.30 m/s2 MV DecT: 110.08 ms MV E Zack: 0.36 m/s MV E/A Ratio: | | | 0.39 MV PHT: 31.92 ms MVA By PHT: 6.89 cm2 Septal e': | | | 0.02 m/s Septal E/e': 17.87 Roll Cutter: DBS Authenticated | | | by: Aidan [facility] Report Date/Time: 01-27-2018 20:31:19 | | [...] | | cmLVPWd: 0.48 cmLVOT Area: 3.17 ab6VHVN Diam: 2.01 cm%FS: 13.00 %EF(Teich): | | 27.65 %ESV(Teich): 100.79 mlLVIDs: 4.66 cmSV(Teich): 38.53 mlRVIDd: 2.57 | | cmLAESV(A-L): 31.09 mlLAESV Index (A-L): 19.31 ml/m2LAAs A2C: 11.42 [id number] A-L | | A2C: 27.79 mlLALs A2C: 3.98 cmLAAs A4C: 12.18 cf7GONPJ A-L A4C: 33.17 mlLALs | | A4C: 3.80 cmRAAs: 8.87 ry6SVKCX A-L: 20.88 mlRAESV MOD: 21.09 mlRALs: 3.19 | | cmTAPSE: 1.39 cmAV maxP.26 mmHgAV meanP.80 mmHgAV Vmax: 1.03 m/Damaris | | Vmean: 0.61 m/Damaris VTI: 18.51 cmAVA Vmax: 1.99 cm2AVA (VTI): 2.59 qz8KRAS (Vmax): | | 0.00 cm2/m2AVAI (VTI): 0.00 cm2/m2LVOT maxP.68 mmHgLVOT meanP.91 | | mmHgLVSI Dopp: 29.78 ml/m2LVSV Dopp: 47.95 mlLVOT Vmax: 0.64 m/sLVOT Vmean: 0.44 | | m/sLVOT VTI: 15.11 cmMV A Zack: 0.91 m/sMV Dec [place]: 3.30 m/s2MV DecT: 110.08 | | msMV E Zack: 0.36 m/sMV E/A Ratio: 0.39MV PHT: 31.92 msMVA By PHT: 6.89 od1Ghkspb | | e': 0.02 m/sSeptal E/e': 17.87 Roll Cutter: DBSAuthenticated by: Aidan | | [facility] Date/Time: 01-27-2018 20:31:19 IMPRESSION: 1. The [...] A Zack: 0.91 m/s | |MV Dec [place]: 3.30 m/s2 | |MV DecT: 110.08 ms | |MV E Zack: 0.36 m/s | |MV E/A Ratio: 0.39 | |MV PHT: 31.92 ms | |MVA By PHT: 6.89 cm2 | |Septal e': 0.02 m/s | |Septal E/e': 17.87 | | | |Roll Cutter: DBS | |Authenticated by: Aidan Becker | [...]
--- OUTSIDE RECORDS SUMMARY | ~2019-08-30 | XMS | Encounter Summary ---
Demographics + + + | Address | [address] | | | [place] [address] | + + + | Home Phone [...] Team Providers + +------+ + | Care Microstrategy Developer Name | Role | Phone | + +------+ + PCP | Unavailable | + +------+ + Encounter Details +--------+ + + + + | Date | Type | Department | Care Team | Description | +--------+ + + + + | 05/19/ | Hospital | [facility] | Maxx Barker MD | NSTEMI (non-ST | | 2016 - | Encounter | [facility] | [address] | elevated myocardial | | | | CARE FLOOR [address] | [place] [address] | infarction) ([facility]) | | 05/21/ | | JESUS ALBERTO MORA | [phone] | | | 2015 | | [place], [place] | | | | | | [address] | | | | | | [phone] | | | +--------+ + + + [...] Date of Service: 05/21/15 0917 Status: Signed Technical Buyer: Maxx Barker MD (Physician) Located Within [facility] Service: Cardiology Discharge Summary Date [...] with Dr. Collins as she lives in [place]. Referral to cardiac rehab as an outpatient. [...] are the prescriptions that you need to mushroom picker. You may get the following medications [...] Case Management by ANDREW Multani at 05/21/15 4476 Author: ANDREW Multani Service: (none) Author Type: Head Rose Grower Filed: 05/21/15 1509 Date of Service: 05/21/15 1508 Status: Signed Technical Buyer: ANDREW Multani (Head Rose Grower) 05/21/15 1500 Discharge Planning Evaluation Admitting Diagnosis NSTEMI Anticipated Disposition Facility Type Home [facility] met with Leonie NORRIS Nurse, states no discharge needs or concerns at this time. DCP: Home MAKENZIE IMER, Clinical Reimbursement Specialist [phone] onver joseph Transaction, Provider Unknown - 05/21/2015 10:57 AM PST Nurse Progress Note by Leonie Tapia RN at 05/21/15 1057 Author: Leonie Tapia RN Service: (none) Author Type: Registered Nurse Filed: 05/21/15 1058 Date of Service: 05/21/15 1057 Status: Signed Technical Buyer: Leonie Tapia RN (Registered Nurse) D/c instructions [...] Date of Service: 05/20/15 1347 Status: Signed Technical Buyer: Cierra Caban RN (Registered Nurse) 05/20/15 1341 [...] y.o., female who lives with spouse in [facility]. She is independent in all [...] 05/19/151811 Date of Service: 05/19/151809 Status: Signed Technical Buyer: Chapo Coles RN (Registered Nurse) VSS, pt [...] 05/19/151721 Date of Service: 05/19/151721 Status: Signed Technical Buyer: Damaris Ritter RPH (Pharmacist) Clinical Pharmacy Note - Renal Dose Adjustment Damir Alejandro 84 y.o. 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 Bolus of NS started, pt placed in [...] Visit | | [address] [facility] | | | | | | [address] [place] | | | | | | [address] | | | | | | | | +--------+---------+ + + + | 01/17/ | Office | Cardiology | Brianna Stewart | | | 2019 | Visit | | [address] | | | | | | [address] | | | | | | [place] [address] | | | | | | [phone] | | | | | | | [...] LAB | | | | [address];[place], [place] | | | | | | [address] | | | | + + + [...] | | | | | | ACUTE [place] CKTRP PHONED TO | | | | | | 4RP REINIER Chan AT 0625 BY | | | | | | LJREAD BACK RESULTS | | | | | | VERIFIEDTesting | | | | | | performed at [facility];[address] | | | | | | [address] [facility];[place], [place] | | | | | | [address] | | | | + + + [...] [place] | | | | | | [address] | | | | + + + [...] | | | [facility];[address] [place] [address] | | | | | | [address];[place] [address] | | | | + + + [...] | | | | | | ACUTE [place] CALLED NURSING | | | | | | JENNIFER TARIQ AT | | | | | | 09:17 BY EW READ BACK | | | | | | RESULTS VERIFIEDTesting | | | | | | performed at [facility];[address] | | | | | | [address];[place] | | | | | | [address] | | | | + + + [...] [place] | | | | | | [address] | | | | + + + [...] | | | ------REPORT ADDENDED------ INDICATIONS Acute [place] / Wall | | | motion abnormailty [...] 0.45 m/s TV | | | Dec Bay: 2.68 m/s2 TV Dec Time: 257.33 ms TV E Zack: 0.69 | | | m/s TV E/A Ratio: 1.50 Calender Operator: Authenticated by: Maxx | | | Malini DONOHUE Report Date/Time: 05-21-2015 09:31:01 | | + + + + + | Procedure Note | + + | Rogers Hdadad - 11/10/2018 5:37 PM PDT Patient Name: ROGERS ALEJANDROEli of | | : 1930 Performing Physician: Maxx Barker | | MD ------REPORT | | ADDENDED------INDICATIONS Acute [place] / Wall motion abnormailty | | CONCLUSIONS [...] mlLAESV Index (A-L): 26.86 ml/m2LAAs A2C: 14.91 eu2OVRRM A-L | | A2C: 42.94 mlLALs A2C: 4.39 cmLAAs A4C: 13.05 [id number] A-L A4C: 31.55 mlLALs | | A4C: [...] Vmax: 2.19 cm2AVA (VTI): | | 2.30 ux2BPVD Dopp: 4.35 l/sbmg3RZNJ Dopp: 6.09 l/minHR: 71.65 BPMLVOT maxPG: | [...] 0.82 m/sTV A Zack: 0.45 m/sTV Dec Bay: 2.68 | | m/s2TV Dec Time: 257.33 msTV E Zack: 0.69 m/sTV E/A Ratio: 1.50 Calender Operator: | | ASAuthenticated by: Maxx Ordazqaisi MDReport [...] A Zack: 0.45 m/s | |TV Dec Bay: 2.68 m/s2 | |TV Dec Time: 257.33 ms | |TV E Zack: 0.69 m/s | |TV E/A Ratio: 1.50 | | | |Calender Operator: | |Authenticated by: Maxx Barker MD | [...] | | | | | [address];[place], [place] | | | | | | [address] | | | | + + + [...] [place] | | | | | | [address] | | | | + + + + + + | Red Blood | 3.27 (L)Comment: Testing | 3.70 - 5.10 | EXTERNAL | | | Cells | performed at [facility];[address] | M/uL | LAB | | | Counted | [address];[place] | | | | | | [address] | | | | + + + + + + | Hemoglobin | 8.7 (L)Comment: Testing | 11.3 - 15.5 | EXTERNAL | | | | performed at [facility];[address] | g/dL | LAB | | | | [address];[place] | | | | | | [address] | | | | + + + + + + | Hematocrit, | 27.8 (L)Comment: Testing | 34.0 - 46.0 % | EXTERNAL | | | POC | performed at [facility];[address] | | LAB | | | | [address];[place] | | | | | | [address] | | | | + + + + + + | MCV | 84.9Comment: Testing | 80.0 - 100.0 fl | EXTERNAL | | | | performed at [facility];[address] | | LAB | | | | [address];[place] | | | | | | [address] | | | | + + + + + + | MCH | 26.7 (L)Comment: Testing | 27.0 - 34.0 pg | EXTERNAL | | | | performed at [facility];[address] | | LAB | | | | [address];[place] | | | | | | [address] | | | | + + + + + + | MCHC | 31.5 (L)Comment: Testing | 32.0 - 35.5 | EXTERNAL | | | | performed at [facility];[address] | g/dL | LAB | | | | [address];[place] | | | | | | [address] | | | | + + + + + + | RDW-CV | 46.8Comment: Testing | 37 - 53 fl | EXTERNAL | | | | performed at [facility];[address] | | LAB | | | | [address];[place] | | | | | | [address] | | | | + + + + + + | Platelet | 207Comment: Testing | 150 - 400 K/uL | EXTERNAL | | | Count | performed at [facility];[address] | | LAB | | | Plasma | [address];[place] | | | | | | [address] | | | | + + + + + + | MPV | 8.1Comment: Testing | fl | EXTERNAL | | | | performed at [facility];[address] | | LAB | | | | [address];[place] | | | | | | [address] | | | | + + + + + + | Differentia | AUTOMATEDComment: | | EXTERNAL | | | l Type | Testing performed at | | LAB | | | | [facility];[address];[place] [address] | | | | + + + + + + | % Segmented | 73.07Comment: Testing | % | EXTERNAL | | | | performed at [facility];[address] | | LAB | | | Neutrophils | [address];[place] | | | | | | [address] | | | | + + + + + + | % | 15.96Comment: Testing | % | EXTERNAL | | | Lymphocytes | performed at [facility];[address] | | LAB | | | | [address];[place] | | | | | | [address] | | | | + + + + + + | % Monocytes | 9.56Comment: Testing | % | EXTERNAL | | | | performed at [facility];[address] | | LAB | | | | [address];[place] | | | | | | [address] | | | | + + + + + + | % | 1.00Comment: Testing | % | EXTERNAL | | | Eosinophils | performed at [facility];[address] | | LAB | | | | [address];[place] | | | | | | [address] | | | | + + + + + + | % Basophils | 0.41Comment: Testing | % | EXTERNAL | | | | performed at [facility];[address] | | LAB | | | | [address];[place] | | | | | | [address] | | | | + + + + + + | Absolute | 5.60Comment: Testing | 1.90 - 7.40 | EXTERNAL | | | Segmented | performed at [facility];[address] | K/uL | LAB | | | Neutrophils | [address];[place] | | | | | | [address] | | | | + + + + + + | Absolute | 1.22Comment: Testing | 1.00 - 3.90 | EXTERNAL | | | Lymphocytes | performed at [facility];[address] | K/uL | LAB | | | | [address];[place] | | | | | | [address] | | | | + + + + + + | Absolute | 0.73Comment: Testing | 0.00 - 0.80 | EXTERNAL | | | Monocytes | performed at [facility];[address] | K/uL | LAB | | | | [address];[place] | | | | | | [address] | | | | + + + + + + | Absolute | 0.08Comment: Testing | 0.00 - 0.50 | EXTERNAL | | | Eosinophils | performed at [facility];[address] | K/uL | LAB | | | | [address];[place] | | | | | | [address] | | | | + + + + + + | Absolute | 0.03Comment: Testing | 0.00 - 0.10 | EXTERNAL | | | Basophils | performed at [facility];[address] | K/uL | LAB | | | | [address];[place], [place] | | | | | | [address] | | | | + + + [...] [address] | | | | | | [facility];[place], [place] | | | | | | [address]VHXRFKBIP ON 05/20 | | | | | [...] LAB | | | | [address];[place], [place] | | | | | | [address] | | | | + + + [...] | performed at [facility] | | LAB | | | | [address];[place], [place] | | | | | | [address] | | | | + + + [...] | | | | | [place] [address] | | | | + + + + + + | Triglycerid | 216 (H)Comment: Testing | mg/dL | EXTERNAL | | | es | performed at [facility], [address] | | LAB | | | | [address], | | | | | | [place] [address] | | | | + + + + + + | HDL | 37 (L)Comment: Testing | mg/dL | EXTERNAL | | | | performed at [facility], [address] | | LAB | | | | [address], | | | | | | [place] [address] | | | | + + + + + + | LDL, | 59Comment: Testing | mg/dL | EXTERNAL | | | Calculated | performed at [facility], [address] | | LAB | | | | [address], | | | | | | [place] [address] | | | | + + + [...] [place] | | | | | | [address] | | | | + + + + + + | K | 4.3Comment: Testing | 3.5 - 4.9 | EXTERNAL | | | | performed at [facility];[address] | mmol/L | LAB | | | | [address];[place] | | | | | | [address] | | | | + + + + + + | Cl | 113 (H)Comment: Testing | 99 - 109 mmol/L | EXTERNAL | | | | performed at [facility];[address] | | LAB | | | | [address];[place] | | | | | | [address] | | | | + + + + + + | CO2 | 24Comment: Testing | 23 - 32 mmol/L | EXTERNAL | | | | performed at [facility];[address] | | LAB | | | | [address];[place] | | | | | | [address] | | | | + + + + + + | Anion Gap | 10Comment: Testing | 5 - 20 mmol/L | EXTERNAL | | | | performed at [facility];[address] | | LAB | | | | [address];[place] | | | | | | [address] | | | | + + + + + + | Glucose, | 85Comment: Testing | 65 - 99 mg/dL | EXTERNAL | | | Fasting | performed at [facility];[address] | | LAB | | | | [address];[place] | | | | | | [address] | | | | + + + + + + | BUN | 19Comment: Testing | 8 - 25 mg/dL | EXTERNAL | | | | performed at [facility];[address] | | LAB | | | | [address];[place] | | | | | | [address] | | | | + + + + + + | Creatinine | 1.2 (H)Comment: Testing | 0.50 - 1.00 | EXTERNAL | | | | performed at [facility];[address] | mg/dL | LAB | | | | [address];[place] | | | | | | [address] | | | | + + + + + + | BUN/Creatin | 16Comment: Testing | | EXTERNAL | | | ine Ratio | performed at [facility];[address] | | LAB | | | | [address];[place] | | | | | | [address] | | | | + + + + + + | Calcium | 7.1 (L)Comment: Testing | 8.5 - 10.5 | EXTERNAL | | | | performed at [facility];[address] | mg/dL | LAB | | | | [address];[place] | | | | | | [address] | | | | + + + [...] [address];[place] [address] | | | | + + + [...] [address];[place] [address] | | | | + + + [...] | | | | | | ACUTE [place] RESULT READ | | | | | | BACK BY:MARK Lackey/JR ON | | | | | | [id number] AT 0051, | | | | | | VAPTesting performed at | | | | | | [facility];[address] [facility] | | | | | | [facility];[place] [address] | | | | + + + [...] LAB | | | | [address];[place], [place] | | | | | | [address] | | | | + + + [...] [address];[place] [address] | | | | + + + [...] | | | | | | ACUTE [place] CALLED TO | | | | | | ZEN Barros ON 4RP AT 1920 | | | | | | BY CD, READ BACKTesting | | | | | | performed at [facility];[address] | | | | | | [facility];[place], [place] | | | | | | [address] | | | | + + + [...] [place] | | | | | | [address] | | | | + + + [...] + + | Historically converted procedure from [facility] | EXTERNAL LAB | + + [...] radial artery canalized with | | | 6-Togolese cylinder sheath. 2.5 mg verapamil, 200 mcg nitroglycerin, | | | 5000 international units of heparin was given through the sheath. | | | Over 260 exchange wire, 5-Togolese FL4 diagnostic catheter advanced to | | | the ascending aorta to selectively engage the left main. Contrast was | | | injected. Selective angiogram for the left main, LAD, left | | | circumflex artery performed in different views. Over the guidewire, | | | it was exchanged for a 5-Togolese FR-4 diagnostic catheter addressed to | | [...] exchanged | | | for RC-4 SC 6-Togolese guide that selectively engaged the RCA. A [...] 1% lidocaine. Right radial artery canalized with 6-Togolese cylinder | | sheath. 2.5 mg verapamil, 200 mcg nitroglycerin, 5000 international units | | of heparin was given through the sheath. Over 260 exchange wire, 5-Togolese | | FL4 diagnostic catheter advanced to the ascending aorta to selectively | | engage the left main. Contrast was injected. Selective angiogram for the | | left main, LAD, left circumflex artery performed in different views. Over | | the guidewire, it was exchanged for a 5-Togolese FR-4 diagnostic catheter | | addressed to [...] the catheter was exchanged for RC-4 SC 6-Togolese guide | | that selectively engaged the [...] radial artery canalized with | | | 6-Togolese cylinder sheath. 2.5 mg verapamil, 200 mcg nitroglycerin, | | | 5000 international units of heparin was given through the sheath. | | | Over 260 exchange wire, 5-Togolese FL4 diagnostic catheter advanced to | | | the ascending aorta to selectively engage the left main. Contrast was | | | injected. Selective angiogram for the left main, LAD, left | | | circumflex artery performed in different views. Over the guidewire, | | | it was exchanged for a 5-Togolese FR-4 diagnostic catheter addressed to | | [...] exchanged | | | for RC-4 SC 6-Togolese guide that selectively engaged the RCA. A [...] 1% lidocaine. Right radial artery canalized with 6-Togolese cylinder | | sheath. 2.5 mg verapamil, 200 mcg nitroglycerin, 5000 international units | | of heparin was given through the sheath. Over 260 exchange wire, 5-Togolese | | FL4 diagnostic catheter advanced to the ascending aorta to selectively | | engage the left main. Contrast was injected. Selective angiogram for the | | left main, LAD, left circumflex artery performed in different views. Over | | the guidewire, it was exchanged for a 5-Togolese FR-4 diagnostic catheter | | addressed to [...] the catheter was exchanged for RC-4 SC 6-Togolese guide | | that selectively engaged the [...] | | | time, POC | [address];[place] | | | | | | [address] | | | | + + + [...] | | time, POC | [address];[place], [place] | | | | | | [address] | | | | + + + [...] - 11/10/2018 5:37 PM PDT DAMIR Garcia [facility]/[id number] yearsXR CHEST | | 1 VIEW05/19/2015 1:13 [...] | | | | | [address];[place], [place] | | | | | | [address] | | | | + + + [...] | | | | | | [address];[place], [place] | | | | | | [address] | | | | + + + [...] [place] | | | | | | [address] | | | | + + + + + + | K | 4.4Comment: Testing | 3.5 - 4.9 | EXTERNAL | | | | performed at [facility];888 | mmol/L | LAB | | | | [address];[place] | | | | | | [address] | | | | + + + + + + | Cl | 105Comment: Testing | 99 - 109 mmol/L | EXTERNAL | | | | performed at [facility];[address] | | LAB | | | | [address];[place] | | | | | | [address] | | | | + + + + + + | CO2 | 26Comment: Testing | 23 - 32 mmol/L | EXTERNAL | | | | performed at [facility];[address] | | LAB | | | | [address];[place] | | | | | | [address] | | | | + + + + + + | Anion Gap | 12Comment: Testing | 5 - 20 mmol/L | EXTERNAL | | | | performed at [facility];[address] | | LAB | | | | [address];[place] | | | | | | [address] | | | | + + + + + + | Glucose, | 95Comment: Testing | 65 - 99 mg/dL | EXTERNAL | | | Fasting | performed at [facility];[address] | | LAB | | | | [address];[place] | | | | | | [address] | | | | + + + + + + | BUN | 24Comment: Testing | 8 - 25 mg/dL | EXTERNAL | | | | performed at [facility];[address] | | LAB | | | | [address];[place] | | | | | | [address] | | | | + + + + + + | Creatinine | 1.5 (H)Comment: Testing | 0.50 - 1.00 | EXTERNAL | | | | performed at [facility];888 | mg/dL | LAB | | | | [address];[place] | | | | | | [address] | | | | + + + + + + | BUN/Creatin | 16Comment: Testing | | EXTERNAL | | | ine Ratio | performed at [facility];[address] | | LAB | | | | [address];[place] | | | | | | [address] | | | | + + + + + + | Calcium | 8.2 (L)Comment: Testing | 8.5 - 10.5 | EXTERNAL | | | | performed at [facility];888 | mg/dL | LAB | | | | [address];[place] | | | | | | [address] | | | | + + + [...] | | at [facility];[address] [place] [address] | | | | | | [facility];[place] [address] | | | | + + + [...] | | | | | | editor city [place]nie Sánchez | | | | | | (15) on 05/19/2015 | | | | | | 4:21:25 PM | | | | + + + + + + + + | Specimen | + + | | + + + + + | Narrative | Performed At | + + + | Historically converted procedure from [facility] Epic environment | EXTERNAL LAB | + [...]
--- OUTSIDE RECORDS SUMMARY | ~2019-08-30 | XMS | Encounter Summary ---
Demographics + + + | Address | [address] | | | [place] [address] | + + + | Home Phone | | + + + | Preferred Language | Unknown | + + + | Marital Status | | + + + | Denominational Affiliation | Unknown | + + + | Race | Unknown | + + + | Ethnic Group | Unknown | + + + Author + + + | Author | [facility] | | | and [place] | + + + | Organization | [facility] | | | [...] Team Providers + +------+ + | Care [employer] Consultant Name | Role | Phone | + +------+ + | Luanne Love | PCP | | | PA | | | + +------+ + Encounter Details +--------+ + + + + | Date | Type | Department | Care Team | Description | +--------+ + + + + | 07/06/ | Orders Only | [facility] | Brianna Stewart | | | 2018 | | CARDIOLOGY PATT | Stefani, SPINNER [address] | | | | | [address] | [address] | | | | | [address] | [place] [address] | | | | | [place] | [phone] | | | | | [address] | | | | | | [phone] | | | +--------+ + + + [...] [place] | | | | | | [address] | | | | | | | | +--------+---------+ + + + | 01/17/ | Office | Cardiology | Brianna Stewart | | | 2019 | Visit | | [address] | | | | | | [address] | | | | | | [place] [address] | | | | | | [phone] | | | | | | | | +--------+---------+ + + + documented as of this encounter Visit Diagnoses Not on filedocumented in this encounter"
--- OUTSIDE RECORDS SUMMARY | ~2019-08-30 | XMS | Clinical Summary ---
Demographics + + + | Address | [address] | | | [place] [address] | + + + | Home Phone | | + + + | Preferred Language | Unknown | + + + | Marital Status | | + + + | Judaism Affiliation | Unknown | + + + | Race | Unknown | + + + | Ethnic Group | Unknown | + + + Author + + + | Author | [facility] (Historical as of | | | 11-12-18) | + + + | Organization | [facility] (Historical as of | | | 11-12-18) [...] Team Providers + +------+ + | Care Assistant Manager Retail Name | Role | Phone | + [...] | Heart | SCIENTIFIC | | | /[phone] | | Qty: 1 on 05/19/2015 by | | | [employer] | | | [phone] | | Maxx Nayak MD | | | | | | | + +-------+-------+ +--------+--------+--------+ | Promus | Stent | N/A: | [place] | | | / | | Premier-05/19/2015Implanted: | | Heart | SCIENTIFIC | | | /[phone] | | Qty: 1 on 05/19/2015 by | | | [employer] | | | [phone] | | Maxx [...] +------+-------+ + | MEDICARE | MEDICA | [id number] | | | [address] | | | RE | | | | [place] [phone] | | | IP-OP | | | | | + +--------+ +------+-------+ + | COMMERCIAL OTHER | COMMER | [id number] | | | | | | CIAL [...] | manuel | | | [phone] | [phone] | + +--------+ +--------+ + +
--- OUTSIDE RECORDS SUMMARY | ~2019-08-30 | XMS | Encounter Summary ---
Demographics + + + | Address | [address] | | | [place] [address] | + + + | Home Phone | | + + + | Preferred Language | Unknown | + + + | Marital Status | | + + + | Latter Day Affiliation | Unknown | + + + | Race | Unknown | + + + | Ethnic Group | Unknown | + + + Author + + + | Author | Located Within [facility] | | | and [place] | + + + | Organization | Located Within [facility] | | [...] Team Providers + +------+ + | Care Master Cosmetologist Name | Role | Phone | + +------+ + PCP | Unavailable | + +------+ + Encounter Details +--------+ + + + + | Date | Type | Department | Care Team | Description | +--------+ + + + + | 05/19/ | Hospital | [facility] | Maxx Barker MD | NSTEMI (non-ST | | 2016 - | Encounter | [facility] | [address] | elevated myocardial | | | | CARE FLOOR [address] | [place] [address] | infarction) ([facility]) | | 05/21/ | | JESUS ALBERTO MORA | [phone] | | | 2015 | | [place], [place] | | | | | | [address] | | | | | | [phone] | | | +--------+ + + + [...] Date of Service: 05/21/15 0917 Status: Signed Liquor Tester: Maxx Barker MD (Physician) [facility] Service: Cardiology Discharge Summary Date of [...] with Dr. Collins as she lives in [place]. Referral to cardiac rehab as an outpatient. 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 You may get the following medications from [...] Case Management by ANDREW Multani at 05/21/15 3320 Author: ANDREW Multani Service: (none) Author Type: Infantry Senior Sergeant Filed: 05/21/15 1509 Date of Service: 05/21/15 1508 Status: Signed Liquor Tester: ANDREW Multani (Infantry Senior Sergeant) 05/21/15 1500 Discharge Planning Evaluation Admitting Diagnosis NSTEMI Anticipated Disposition Facility Type Home MAINTENANCE CONSTRUCTION HELPER met with Leonie NORRIS Nurse, states no discharge needs or concerns at this time. DCP: Home MAKENZIE IMER, Drapery Sewer Hand [phone] onver joseph Transaction, Provider Unknown - 05/21/2015 10:57 AM PST Nurse Progress Note by Leonie Tapia RN at 05/21/15 1057 Author: Leonie Tapia RN Service: (none) Author Type: Registered Nurse Filed: 05/21/15 1058 Date of Service: 05/21/15 1057 Status: Signed Liquor Tester: Leonie Tapia RN (Registered Nurse) D/c instructions [...] Date of Service: 05/20/15 1347 Status: Signed Liquor Tester: Cierra Caban RN (Registered Nurse) 05/20/15 1341 [...] y.o., female who lives with spouse in [facility]. She is independent in all adl's and [...] 05/19/151811 Date of Service: 05/19/151809 Status: Signed Liquor Tester: Chapo Coles RN (Registered Nurse) VSS, pt [...] 05/19/151721 Date of Service: 05/19/151721 Status: Signed Liquor Tester: Damaris Ritter RPH (Pharmacist) Clinical Pharmacy Note - Renal Dose Adjustment Damir Alejandro 84 y.o. female Ht Readings from Last 1 Encounters: 05/19/15 1.626 m (5' 4") Wt Readings from Last 1 Encounters: 05/19/15 61.78 kg (136 lb 3.2 oz) CREATININE Date Value Ref Range Status 05/19/2015 1.5* 0.50 - 1.00 mg/dL Final Comment: Testing performed at [facility];[address] [place] [address];[place] [address] CREATININE: 1.5 mg/dL ABNORMAL (05/19/15 1205) Estimated [...] 05/19/151707 Date of Service: 05/19/151703 Status: Signed Liquor Tester: Chapo Coles RN (Registered Nurse) Pt arrived hypotensive from clinical lab technologist. Bolus of NS started, pt placed in [...] | Visit | | [address] [facility] | | | | | | [address] [place] | | | | | | [address] | | | | | | | | +--------+---------+ + + + | 01/17/ | Office | Cardiology | Brianna Stewart | | | 2019 | Visit | | [address] | | | | | | [address] | | | | | | [place] [address] | | | | | | [phone] | | | | | | | [...] EXTERNAL | | | | performed at [facility];[address] | | LAB | | | | [address];[place], [place] | | | | | | [address] | | | | + + + [...] | | | | | | ACUTE [place] CKTRP PHONED TO | | | | | | 4RP REINIER Chan AT 0625 BY | | | | | | LJREAD BACK RESULTS | | | | | | VERIFIEDTesting | | | | | | performed at [facility];[address] | | | | | | [facility];[place], [place] | | | | | | [address] | | | | + + + [...] EXTERNAL | | | | performed at [facility];[address] | | LAB | | | | [address];[place] | | | | | | [address] | | | | + + + [...] | | LAB | | | | [facility];[address] [place] [address] | | | | | | [address];[place] [address] | | | | + + + [...] | | | | | | ACUTE [place] CALLED NURSING | | | | | | JENNIFER TARIQ AT | | | | | | 09:17 BY EW READ BACK | | | | | | RESULTS VERIFIEDTesting | | | | | | performed at [facility];[address] | | | | | | [address];[place] | | | | | | [address] | | | | + + + [...] EXTERNAL | | | | performed at [facility];[address] | | LAB | | | | [address];[place] | | | | | | [address] | | | | + + + [...] | | | ------REPORT ADDENDED------ INDICATIONS Acute [place] / Wall | | | motion abnormailty [...] 0.45 m/s TV | | | Dec [place]: 2.68 m/s2 TV Dec Time: 257.33 ms TV E Zack: 0.69 | | | m/s TV E/A Ratio: 1.50 Veneer Stacker: Authenticated by: Maxx | | | Malini DONOHUE Report Date/Time: 05-21-2015 09:31:01 | | + + + + + | Procedure Note | + + | Rogers Haddad - 11/10/2018 5:37 PM PDT Patient Name: ROGERS ALEJANDROEli of | | : 1930 Performing Physician: Maxx Barker | | MD ------REPORT | | ADDENDED------INDICATIONS Acute [place] / Wall motion abnormailty | | CONCLUSIONS [...] mlLAESV Index (A-L): 26.86 ml/m2LAAs A2C: 14.91 [id number] A-L | | A2C: 42.94 mlLALs A2C: 4.39 cmLAAs A4C: 13.05 [id number] A-L A4C: 31.55 mlLALs | | A4C: [...] Vmax: 2.19 cm2AVA (VTI): | | 2.30 [id number] Dopp: 4.35 l/cfhj4NEAB Dopp: 6.09 l/minHR: 71.65 BPMLVOT maxPG: | [...] 0.82 m/sTV A Zack: 0.45 m/sTV Dec [place]: 2.68 | | m/s2TV Dec Time: 257.33 msTV E Zack: 0.69 m/sTV E/A Ratio: 1.50 Veneer Stacker: | | ASAuthenticated by: Maxx Ordazqaisi MDReport [...] A Zack: 0.45 m/s | |TV Dec [place]: 2.68 m/s2 | |TV Dec Time: 257.33 ms | |TV E Zack: 0.69 m/s | |TV E/A Ratio: 1.50 | | | |Veneer Stacker: | |Authenticated by: Maxx Barker MD | [...] | | | | | performed at [facility];[address] | | | | | | [address];[place], [place] | | | | | | [address] | | | | + + + [...] EXTERNAL | | | | performed at [facility];[address] | K/uL | LAB | | | | [address];[place] | | | | | | [address] | | | | + + + + + + | Red Blood | 3.27 (L)Comment: Testing | 3.70 - 5.10 | EXTERNAL | | | Cells | performed at [facility];[address] | M/uL | LAB | | | Counted | [address];[place] | | | | | | [address] | | | | + + + + + + | Hemoglobin | 8.7 (L)Comment: Testing | 11.3 - 15.5 | EXTERNAL | | | | performed at [facility];[address] | g/dL | LAB | | | | [address];[place] | | | | | | [address] | | | | + + + + + + | Hematocrit, | 27.8 (L)Comment: Testing | 34.0 - 46.0 % | EXTERNAL | | | POC | performed at [facility];[address] | | LAB | | | | [address];[place] | | | | | | [address] | | | | + + + + + + | MCV | 84.9Comment: Testing | 80.0 - 100.0 fl | EXTERNAL | | | | performed at [facility];[address] | | LAB | | | | [address];[place] | | | | | | [address] | | | | + + + + + + | MCH | 26.7 (L)Comment: Testing | 27.0 - 34.0 pg | EXTERNAL | | | | performed at [facility];[address] | | LAB | | | | [address];[place] | | | | | | [address] | | | | + + + + + + | MCHC | 31.5 (L)Comment: Testing | 32.0 - 35.5 | EXTERNAL | | | | performed at [facility];[address] | g/dL | LAB | | | | [address];[place] | | | | | | [address] | | | | + + + + + + | RDW-CV | 46.8Comment: Testing | 37 - 53 fl | EXTERNAL | | | | performed at [facility];[address] | | LAB | | | | [address];[place] | | | | | | [address] | | | | + + + + + + | Platelet | 207Comment: Testing | 150 - 400 K/uL | EXTERNAL | | | Count | performed at [facility];[address] | | LAB | | | Plasma | [address];[place] | | | | | | [address] | | | | + + + + + + | MPV | 8.1Comment: Testing | fl | EXTERNAL | | | | performed at [facility];[address] | | LAB | | | | [address];[place] | | | | | | [address] | | | | + + + + + + | Differentia | AUTOMATEDComment: | | EXTERNAL | | | l Type | Testing performed at | | LAB | | | | [facility];[address];[place] [address] | | | | + + + + + + | % Segmented | 73.07Comment: Testing | % | EXTERNAL | | | | performed at [facility];[address] | | LAB | | | Neutrophils | [address];[place] | | | | | | [address] | | | | + + + + + + | % | 15.96Comment: Testing | % | EXTERNAL | | | Lymphocytes | performed at [facility];[address] | | LAB | | | | [address];[place] | | | | | | [address] | | | | + + + + + + | % Monocytes | 9.56Comment: Testing | % | EXTERNAL | | | | performed at [facility];[address] | | LAB | | | | [address];[place] | | | | | | [address] | | | | + + + + + + | % | 1.00Comment: Testing | % | EXTERNAL | | | Eosinophils | performed at [facility];[address] | | LAB | | | | [address];[place] | | | | | | [address] | | | | + + + + + + | % Basophils | 0.41Comment: Testing | % | EXTERNAL | | | | performed at [facility];[address] | | LAB | | | | [address];[place] | | | | | | [address] | | | | + + + + + + | Absolute | 5.60Comment: Testing | 1.90 - 7.40 | EXTERNAL | | | Segmented | performed at [facility];[address] | K/uL | LAB | | | Neutrophils | [address];[place] | | | | | | [address] | | | | + + + + + + | Absolute | 1.22Comment: Testing | 1.00 - 3.90 | EXTERNAL | | | Lymphocytes | performed at [facility];[address] | K/uL | LAB | | | | [address];[place] | | | | | | [address] | | | | + + + + + + | Absolute | 0.73Comment: Testing | 0.00 - 0.80 | EXTERNAL | | | Monocytes | performed at [facility];[address] | K/uL | LAB | | | | [address];[place] | | | | | | [address] | | | | + + + + + + | Absolute | 0.08Comment: Testing | 0.00 - 0.50 | EXTERNAL | | | Eosinophils | performed at [facility];[address] | K/uL | LAB | | | | [address];[place] | | | | | | [address] | | | | + + + + + + | Absolute | 0.03Comment: Testing | 0.00 - 0.10 | EXTERNAL | | | Basophils | performed at [facility];[address] | K/uL | LAB | | | | [address];[place], [place] | | | | | | [address] | | | | + + + [...] at | | | | | | [facility];[address] | | | | | | [facility];[place], [place] | | | | | | [address]VUFOILIMK ON 05/20 | | | | | [...] EXTERNAL | | | | performed at [facility];[address] | | LAB | | | | [address];[place], [place] | | | | | | [address] | | | | + + + [...] EXTERNAL | | | | performed at [facility] | | LAB | | | | [address];[place], [place] | | | | | | [address] | | | | + + + [...] | | | | | [place] [address] | | | | + + + + + + | Triglycerid | 216 (H)Comment: Testing | mg/dL | EXTERNAL | | | es | performed at [facility], [address] | | LAB | | | | [address], | | | | | | [place] [address] | | | | + + + + + + | HDL | 37 (L)Comment: Testing | mg/dL | EXTERNAL | | | | performed at [facility], [address] | | LAB | | | [address], | | | | | | [place] [address] | | | | + + + + + + | LDL, | 59Comment: Testing | mg/dL | EXTERNAL | | | Calculated | performed at [facility], [address] | | LAB | | | [address], | | | | | | [place] [address] | | | | + + + [...] EXTERNAL | | | | performed at [facility];[address] | mmol/L | LAB | | | | [address];[place] | | | | | | [address] | | | | + + + + + + | K | 4.3Comment: Testing | 3.5 - 4.9 | EXTERNAL | | | | performed at [facility];[address] | mmol/L | LAB | | | | [address];[place] | | | | | | [address] | | | | + + + + + + | Cl | 113 (H)Comment: Testing | 99 - 109 mmol/L | EXTERNAL | | | | performed at [facility];[address] | | LAB | | | | [address];[place] | | | | | | [address] | | | | + + + + + + | CO2 | 24Comment: Testing | 23 - 32 mmol/L | EXTERNAL | | | | performed at [facility];[address] | | LAB | | | | [address];[place] | | | | | | [address] | | | | + + + + + + | Anion Gap | 10Comment: Testing | 5 - 20 mmol/L | EXTERNAL | | | | performed at [facility];[address] | | LAB | | | | [address];[place] | | | | | | [address] | | | | + + + + + + | Glucose, | 85Comment: Testing | 65 - 99 mg/dL | EXTERNAL | | | Fasting | performed at [facility];[address] | | LAB | | | | [address];[place] | | | | | | [address] | | | | + + + + + + | BUN | 19Comment: Testing | 8 - 25 mg/dL | EXTERNAL | | | | performed at [facility];[address] | | LAB | | | | [address];[place] | | | | | | [address] | | | | + + + + + + | Creatinine | 1.2 (H)Comment: Testing | 0.50 - 1.00 | EXTERNAL | | | | performed at [facility];[address] | mg/dL | LAB | | | | [address];[place] | | | | | | [address] | | | | + + + + + + | BUN/Creatin | 16Comment: Testing | | EXTERNAL | | | ine Ratio | performed at [facility];[address] | | LAB | | | | [address];[place] | | | | | | [address] | | | | + + + + + + | Calcium | 7.1 (L)Comment: Testing | 8.5 - 10.5 | EXTERNAL | | | | performed at [facility];[address] | mg/dL | LAB | | | | [address];[place] | | | | | | [address] | | | | + + + [...] | | | | | | at [facility];[address];[place] [address] | | | | + + + [...] | | LAB | | | | [facility];[address];[place] [address] | | | | + + + [...] | | | | | | ACUTE [place] RESULT READ | | | | | | BACK BY:MARK Lackey/JR ON | | | | | | [id number] AT 0051, | | | | | | VAPTesting performed at | | | | | | [facility];[address] [facility] | | | | | | [facility];[place] [address] | | | | + + + [...] EXTERNAL | | | | performed at [facility];[address] | | LAB | | | | [address];[place], [place] | | | | | | [address] | | | | + + + [...] [address];[place] [address] | | | | + + + [...] | | | | | | ACUTE [place] CALLED TO | | | | | | ZEN Barros ON 4RP AT 1920 | | | | | | BY CD, READ BACKTesting | | | | | | performed at [facility];[address] | | | | | | [facility];[place], [place] | | | | | | [address] | | | | + + + [...] EXTERNAL | | | | performed at [facility];[address] | | LAB | | | | [address];[place] | | | | | | [address] | | | | + + + [...] | | | | | by KAROLINE LOWREY ([id number]) | | | | | | on 05/19/2015 7:20:22 PM | | | | + + + + + + + + | Specimen | + + | | + + + + + | Narrative | Performed At | + + + | Historically converted procedure from [facility] | EXTERNAL LAB | + + [...] radial artery canalized with | | | 6-Peruvian cylinder sheath. 2.5 mg verapamil, 200 mcg nitroglycerin, | | | 5000 international units of heparin was given through the sheath. | | | Over 260 exchange wire, 5-Peruvian FL4 diagnostic catheter advanced to | | | the ascending aorta to selectively engage the left main. Contrast was | | | injected. Selective angiogram for the left main, LAD, left | | | circumflex artery performed in different views. Over the guidewire, | | | it was exchanged for a 5-Peruvian FR-4 diagnostic catheter addressed to | | [...] exchanged | | | for RC-4 SC 6-Peruvian guide that selectively engaged the RCA. A [...] 1% lidocaine. Right radial artery canalized with 6-Peruvian cylinder | | sheath. 2.5 mg verapamil, 200 mcg nitroglycerin, 5000 international units | | of heparin was given through the sheath. Over 260 exchange wire, 5-Peruvian | | FL4 diagnostic catheter advanced to the ascending aorta to selectively | | engage the left main. Contrast was injected. Selective angiogram for the | | left main, LAD, left circumflex artery performed in different views. Over | | the guidewire, it was exchanged for a 5-Peruvian FR-4 diagnostic catheter | | addressed to [...] the catheter was exchanged for RC-4 SC 6-Peruvian guide | | that selectively engaged the [...] radial artery canalized with | | | 6-Peruvian cylinder sheath. 2.5 mg verapamil, 200 mcg nitroglycerin, | | | 5000 international units of heparin was given through the sheath. | | | Over 260 exchange wire, 5-Peruvian FL4 diagnostic catheter advanced to | | | the ascending aorta to selectively engage the left main. Contrast was | | | injected. Selective angiogram for the left main, LAD, left | | | circumflex artery performed in different views. Over the guidewire, | | | it was exchanged for a 5-Peruvian FR-4 diagnostic catheter addressed to | | [...] exchanged | | | for RC-4 SC 6-Peruvian guide that selectively engaged the RCA. A [...] 1% lidocaine. Right radial artery canalized with 6-Peruvian cylinder | | sheath. 2.5 mg verapamil, 200 mcg nitroglycerin, 5000 international units | | of heparin was given through the sheath. Over 260 exchange wire, 5-Peruvian | | FL4 diagnostic catheter advanced to the ascending aorta to selectively | | engage the left main. Contrast was injected. Selective angiogram for the | | left main, LAD, left circumflex artery performed in different views. Over | | the guidewire, it was exchanged for a 5-Peruvian FR-4 diagnostic catheter | | addressed to [...] the catheter was exchanged for RC-4 SC 6-Peruvian guide | | that selectively engaged the [...] | | | Clotting | performed at [facility];[address] | seconds | LAB | | | time, POC | [address];[place] | | | | | | [address] | | | | + + + [...] | | | Clotting | performed at [facility];[address] | seconds | LAB | | | time, POC | [address];[place], [place] | | | | | | [address] | | | | + + + [...] - 11/10/2018 5:37 PM PDT DAMIR Garcia [facility]/[id number] yearsXR CHEST | | 1 VIEW05/19/2015 1:13 [...] | | | | | performed at [facility];[address] | | | | | | [address];[place], [place] | | | | | | [address] | | | | + + + [...] | | | | | performed at [facility];[address] | | | | | | [address];[place], [place] | | | | | | [address] | | | | + + + [...] EXTERNAL | | | | performed at [facility];[address] | mmol/L | LAB | | | | [address];[place] | | | | | | [address] | | | | + + + + + + | K | 4.4Comment: Testing | 3.5 - 4.9 | EXTERNAL | | | | performed at [facility];[address] | mmol/L | LAB | | | | [address];[place] | | | | | | [address] | | | | + + + + + + | Cl | 105Comment: Testing | 99 - 109 mmol/L | EXTERNAL | | | | performed at [facility];[address] | | LAB | | | | [address];[place] | | | | | | [address] | | | | + + + + + + | CO2 | 26Comment: Testing | 23 - 32 mmol/L | EXTERNAL | | | | performed at [facility];[address] | | LAB | | | | [address];[place] | | | | | | [address] | | | | + + + + + + | Anion Gap | 12Comment: Testing | 5 - 20 mmol/L | EXTERNAL | | | | performed at [facility];[address] | | LAB | | | | [address];[place] | | | | | | [address] | | | | + + + + + + | Glucose, | 95Comment: Testing | 65 - 99 mg/dL | EXTERNAL | | | Fasting | performed at [facility];[address] | | LAB | | | | [address];[place] | | | | | | [address] | | | | + + + + + + | BUN | 24Comment: Testing | 8 - 25 mg/dL | EXTERNAL | | | | performed at [facility];[address] | | LAB | | | | [address];[place] | | | | | | [address] | | | | + + + + + + | Creatinine | 1.5 (H)Comment: Testing | 0.50 - 1.00 | EXTERNAL | | | | performed at [facility];888 | mg/dL | LAB | | | | [address];[place] | | | | | | [address] | | | | + + + + + + | BUN/Creatin | 16Comment: Testing | | EXTERNAL | | | ine Ratio | performed at [facility];[address] | | LAB | | | | [address];[place] | | | | | | [address] | | | | + + + + + + | Calcium | 8.2 (L)Comment: Testing | 8.5 - 10.5 | EXTERNAL | | | | performed at [facility];888 | mg/dL | LAB | | | | [address];[place] | | | | | | [address] | | | | + + + [...] | | | | | | at [facility];[address] [place] [address] | | | | | | [facility];[place] [address] | | | | + + + [...] (500), | | | | | | photo editor Bonnie Sánchez | | | | | | (15) on 05/19/2015 | | | | | | 4:21:25 PM | | | | + + + + + + + + | Specimen | + + | | + + + + + | Narrative | Performed At | + + + | Historically converted procedure from [facility] | EXTERNAL LAB | + [...]
--- OUTSIDE RECORDS SUMMARY | ~2019-08-30 | XMS | Encounter Summary ---
Demographics + + + | Address | [address] | | | [place] [address] | + + + | Home Phone [...] Team Providers + +------+ + | Care Termite Exterminator Name | Role | Phone | + [...] | | | | [place], [place] | [phone] | | | | | [address] | | | | | | [phone] | | | +--------+ + + + [...] 2020 | Visit | | [address] [facility] | | | | | | [address] [place] | | | | | | [address] | | | | | | | | +--------+---------+ + + + | 01/17/ | Office | Cardiology | Brianna Stewart | | | 2019 | Visit | | [address] | | | | | | [address] | | | | | | [place] [address] | | | | | | [phone] | | | | | | | | +--------+---------+ + + + documented as of this encounter Visit Diagnoses Not on filedocumented in this encounter"
--- OUTSIDE RECORDS SUMMARY | ~2019-08-30 | XMS | Encounter Summary ---
Demographics + + + | Address | [address] | | | [place] [address] | + + + | Home Phone [...] Team Providers + +------+ + | Care Leaf Fat Scraper Name | Role | Phone | + +------+ + | Luanne Love | PCP | | | PA | | | + +------+ + Encounter Details +--------+ + + + + | Date | Type | Department | Care Team | Description | +--------+ + + + + | 08/06/ | Orders Only | [facility] | Maxx Buchanan MD | | | 2020 | | [facility] | [address] [place] | | | | | [address] [place] | [address] [place], [place] | | | | | [address] [place], [place] | [address] | | | | | [address] | | | | | | [phone] | | | +--------+ + + + [...] [place] | | | | | | [address] | | | | | | | | +--------+---------+ + + + | 01/17/ | Office | Cardiology | Brianna Stewart | | | 2020 | Visit | | [address] | | | | | | [address] | | | | | | [place] [address] | | | | | | [phone] | | | | | | | | +--------+---------+ + + + documented as of this encounter Visit Diagnoses Not on filedocumented in this encounter"
--- OUTSIDE RECORDS SUMMARY | ~2019-08-30 | XMS | Encounter Summary ---
Demographics + + + | Address | [address] | | | [place] [address] | + + + | Home Phone [...] + | Author | [facility] | | | and [place] | + + + | Organization | [facility] | | | and [...] Team Providers + +------+ + | Care Router Tender Name | Role | Phone | + [...] | | | | [place], [place] | [phone] | | | | | [address] | | | | | | [phone] | | | +--------+ + + + [...] 2020 | Visit | | [address] [facility] | | | | | | [address] [place], [place] | | | | | | [address] | | | | | | | | +--------+---------+ + + + | 01/17/ | Office | Cardiology | Brianna Stewart | | | 2019 | Visit | | [address] | | | | | | [address] | | | | | | [place] [address] | | | | | | [phone] | | | | | | | | +--------+---------+ + + + documented as of this encounter Visit Diagnoses Not on filedocumented in this encounter"
--- OUTSIDE RECORDS SUMMARY | ~2019-08-30 | XMS | Encounter Summary ---
Demographics + + + | Address | [address] | | | [place] [address] | + + + | Home Phone | | + + + | Preferred Language | Unknown | + + + | Marital Status | | + + + | Presybeterian Affiliation | Unknown | + + + | Race | Unknown | + + + | Ethnic Group | Unknown | + + + Author + + + | Author | [facility] | | | and [place] | + + + | Organization | [facility] | | [...] Team Providers + +------+ + | Care Tailor Men'S Ready To Wear Name | Role | Phone | + [...] Required | Required | | chronic | SUPPORT STAFF [address] | | | | | kidney | [address] | [address] | | | | | disease | [place] [address] | [place], | | | | | ([facility]) | [place], [place] | [place] [address] | | | | | | [address] | Phone: | | | | | | Phone: | [phone] | | | | | | [phone] | Fax: | | | | | | Fax: | [phone] | | | | | | [phone] | | + + + + + + + Reason for Visit + + + | Reason | Comments | + + + | Follow-up | 3 week | + + + Encounter Details +--------+---------+ + + + | Date | Type | Department | Care Team | Description | +--------+---------+ + + + | 05/15/ | Office | [facility] | Brianna Stewart | Coronary artery | | 2020 | Visit | CARDIOLOGY [place] | [address] | disease involving | | | | [address] | [address] IRBY F | chilkat coronary | | | | [address] | [place] [address] | artery of chilkat | | | | [place], [place] | [phone] | heart without angina | | | | [address] | | pectoris (Primary | | | | [phone] | | Dx); S/P drug | | [...] as I have not seen her in [facility] 2 years. 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 Mild DE. No pericardial or pleural effusion. IVC WNL, [...] previously , Otherwise stable rate 61 bpm, DE 134 ms, QRS 92 ms, QTC 430 ms EK11/27: ([facility]). Sinus rhythm with sinus arrhythmia, PVC's. T-wave inv ersion to inferior leads and lateral leads, less pronounced than EKG done in June and in e office today. Rate 67 bpm, DE 146 ms, QRS 82 ms, QTC 450 ms (personally reviewed by me grisel d compared to previous EKG's) EK: Sinus bradycardia, stable T-wave inversion to inferior and lateral leads , rate 52 bpm, DE 142 ms, QRS 86 ms, QTC 427 ms (personally reviewed by me and compared to previous EKG's) EK02/07/2018: Normal sinus rhythm, stable T-wave inversion to inferolateral leads. Rate 64 bpm, DE 138 ms, QRS 90 ms, QTC 441 ms (personally reviewed by me and compared to previo us EKG 02/01/2017, rate is faster, otherwise similar morphology) EK02/11/2019:( [facility]) Normal sinus rhythm, nonspecific ST-T wave abnormality to infero lateral leads, stable. Rate 64 bpm, DE 136 ms, QRS 106 ms, QTC 437 ms, tracing personally r eviewed by me EK04/24/2019: Sinus bradycardia, ST and T wave abnormalities to inferior and anterolatera l leads, similar to previous EKG's, rate 6 bpm, DE 150 ms, QRS 80 ms, QTC 441 [...] and treatment of her renal function to tractor expert, Dr. Buchanan. Her thyroid function was also [...] pro viders. 1. 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 S/P drug [...] Placed This Encounter Procedures Ambulatory Referral to [facility] Nephrology The following portions of the [...] contain inadvertent rec ognition errors. Mimi CHAVEZ [facility] Cardiology 05/15/2019 Pineda figueredo in this encounter Plan of Treatment +--------+---------+ + + + | Date | Type | Specialty | Care Team | Description | +--------+---------+ + + + | 11/07/ | Office | Nephrology | Maxx Buchanan MD | | 2019 | Visit | | [address] [facility] | | | | | | [address] [place], [place] | | | | | | [address] | | | | | | | | +--------+---------+ + + + | 01/17/ | Office | Cardiology | Brianna Stewart | | | 2019 | Visit | | [address] | | | | | | [place] | | | | | | [facility] [address] | | | | | | [phone] | | | | | | | | +--------+---------+ + + + + + +--------+ + + | Name | Type | Priori | Associated Diagnoses | Order Schedule | | | | ty | | | + + +--------+ + + | Ambulatory Referral | Outpatient | Routin | Chronic kidney | Ordered: 05/15/2019 | | to [facility] Nephrology | Referral | e | disease, stage III | | | | | | (moderate) | | + + +--------+ + + documented as of this encounter Visit Diagnoses + + | Diagnosis | + + | Coronary artery disease involving chilkat coronary artery of chilkat heart without | | angina pectoris - [...]
--- OUTSIDE RECORDS SUMMARY | ~2019-08-30 | XMS | Encounter Summary ---
Demographics + + + | Address | [address] | | | [place] [address] | + + + | Home Phone | | + + + | Preferred Language | Unknown | + + + | Marital Status | | + + + | Sabianist Affiliation | Unknown | + + + | Race | Unknown | + + + | Ethnic Group | Unknown | + + + Author + + + | Author | [facility] | | | and [place] | + + + | Organization | [facility] | | | [...] Team Providers + +------+ + | Care Refractory Repairer Name | Role | Phone | + +------+ + | Luanne Love | PCP | | | PA | | | + +------+ + Encounter Details +--------+ + + + + | Date | Type | Department | Care Team | Description | +--------+ + + + + | 09/09/ | Orders Only | [facility] | Aidan Becker, | | | 2018 | | CARDIOLOGY [place] | [address] | | | | | [address] | [place] [address] [place], [place] | | | | | [place], [place] | [address] | | | | | [address] | | | | | | [phone] | | | +--------+ + + + [...] [place] | | | | | | [address] | | | | | | | | +--------+---------+ + + + | 01/17/ | Office | Cardiology | Brianna Stewart | | | 2019 | Visit | | [address] | | | | | | [address]BY [address] | | | | | | [place] [address] | | | | | | [phone] | | | | | | | | +--------+---------+ + + + documented as of this encounter Visit Diagnoses Not on filedocumented in this encounter"
--- OUTSIDE RECORDS SUMMARY | ~2019-08-30 | XMS | Encounter Summary ---
Demographics + + + | Address | [address] | | | [place] [address] | + + + | Home Phone [...] Team Providers + +------+ + | Care Chin Strap Sewer Name | Role | Phone | + [...] Required | Required | | chronic | COAL TOWER OPERATOR [address] | | | | | kidney | [address] | [address] | | | | | disease | [place] F | [place], | | | | | ([facility]) | [place], [place] | [place] [address] | | | | | | [address] | Phone: | | | | | | Phone: | [phone] | | | | | | [phone] | Fax: | | | | | | Fax: | [phone] | | | | | | [phone] | | + + + + + + + Encounter Details +--------+---------+ + + + | Date | Type | Department | Care Team | Description | +--------+---------+ + + + | 08/03/ | Office | [facility] | Maxx Buchanan MD | Chronic kidney | | 2020 | Visit | NEPHROLOGY [place] | [address] [facility] | disease, stage III | | | | [address] | [address] [place] | (moderate) (Primary | | | | [address] | [address] | Dx); Generalized | | | | [place], [place] | | abdominal pain; | | | | [address] | | Electrolyte | | | | [phone] | | imbalance risk | +--------+---------+ + [...] a BMP, CBC, intact PTH, rU/A, Urine wmjngjhjykob-ja-sofevayddy ratio befor e she comes back in [...] conditions include: - CAD; without angina; of cantwell artery - hypertension; essential; with renal disease; 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 - past MT; occured more than 28 days prior to admission - renal disease; CKD; Stage 3 - neuromuscular disease - arthritis Past Medical History: Diagnosis Date Chronic kidney disease, stage III (moderate) ([facility]) 09/23/2015 Coronary artery disease Hyperlipidemia Hypertension Joint pain Neuromuscular disorder ([facility]) NSTEMI (non-ST elevated myocardial infarction) ([facility]) 05/19/2015 Thyroid disease No past surgical [...] file Gets together: Not on file Attends amish service: Not on file Active member of [...] a BMP, CBC, intact PTH, rU/A, Urine vtdcwmbdchgo-kf-qkaijnydhz ratio befor e she comes back in [...] | | | | [address] | | | | | | [address] | | | | | | | | +--------+---------+ + + + | 01/17/ | Office | Cardiology | Brianna Stewart | | | 2020 | Visit | | [address] | | | | | | [address] | | | | | | [place] [address] | | | | | | [phone] | | | | | | | [...]
--- OUTSIDE RECORDS SUMMARY | ~2019-08-30 | XMS | Encounter Summary ---
Demographics + + + | Address | [address] | | | [place] [address] | + + + | Home Phone | | + + + | Preferred Language | Unknown | + + + | Marital Status | | + + + | Anabaptism Affiliation | Unknown | + + + [...] Team Providers + +------+ + | Care Logistical Engineer Name | Role | Phone | + +------+ + | Luanne Love | PCP | | | PA | | | + +------+ + Encounter Details +--------+ + + + + | Date | Type | Department | Care Team | Description | +--------+ + + + + | 08/06/ | Orders Only | [facility] | Maxx Buchanan MD | | | 2020 | | [facility] | [address] [place] | | | | | [address] [place] | [address] [place], [place] | | | | | [address] [place], [place] | [address] | | | | | [address] | | | | | | [phone] | | | +--------+ + + + [...] [place] | | | | | | [address] | | | | | | | | +--------+---------+ + + + | 01/17/ | Office | Cardiology | Brianna Stewart | | | 2020 | Visit | | [address] | | | | | | [address] | | | | | | [place] [address] | | | | | | [phone] | | | | | | | | +--------+---------+ + + + documented as of this encounter Visit Diagnoses Not on filedocumented in this encounter"
--- OUTSIDE RECORDS SUMMARY | ~2019-08-30 | XMS | Encounter Summary ---
Demographics + + + | Address | [address] | | | [place] [address] | + + + | Home Phone | | + + + | Preferred Language | Unknown | + + + | Marital Status | | + + + | Uatsdin Affiliation | Unknown | + + + | Race | Unknown | + + + | Ethnic Group | Unknown | + + + Author + + + | Author | [facility] | | | and [place] | + + + | Organization | [facility] | | | [...] Providers + +------+ + | Care Grey Percher Name | Role | Phone | + +------+ + | Luanne Love | PCP | | | PA | | | + +------+ + Encounter Details +--------+ + + + + | Date | Type | Department | Care Team | Description | +--------+ + + + + | 07/06/ | Orders Only | [facility] | Brianna Stewart | | | 2018 | | CARDIOLOGY [place] | Stefani, DIRECTOR OF RECRUITING [address] | | | | | [address] | [place] [address] | | | | | [address] | [place] [address] | | | | | [place] | [phone] | | | | | [address] | | | | | | [phone] | | | +--------+ + + + [...] [place] | | | | | | [address] | | | | | | | | +--------+---------+ + + + | 01/17/ | Office | Cardiology | Brianna Stewart | | | 2019 | Visit | | [address] | | | | | | [address] | | | | | | [place] [address] | | | | | | [phone] | | | | | | | | +--------+---------+ + + + documented as of this encounter Visit Diagnoses Not on filedocumented in this encounter"
--- OUTSIDE RECORDS SUMMARY | ~2019-08-30 | XMS | Encounter Summary ---
Demographics + + + | Address | [address] | | | [place] [address] | + + + | Home Phone | | + + + | Preferred Language | Unknown | + + + | Marital Status | | + + + | Tenriism Affiliation | Unknown | + + + [...] Team Providers + +------+ + | Care Halfway House Counselor Name | Role | Phone | + [...] | Radiology | Diagnoses | Chanel | [facility] [address] | | | | | Stage 3 | Maxx H, MD | [address] | | | | | chronic | [address] | [place], [place] | | | | | kidney | [address] | [address] | | | | | disease | [place], | Phone: | | | | | ([facility]) | [place] [address] | [phone] | | | | | Electrolyte | Phone: | Fax: | | | | | imbalance | [phone] | [phone] | | | | | risk | Fax: | | | | | | Abdominal | [phone] | | | | | | pain, [...] + | 05/08/ | Orders Only | [facility] | Maxx Buchanan MD | Chronic kidney | | 2020 | | NEPHROLOGY [place] | [address] [place] | disease, stage III | | | | [address] | [address] [place], [place] | (moderate) (Primary | | | | [address] [place], [place] | [address] | Dx); Electrolyte | | | | [address] | | imbalance risk; | | | | [phone] | | Abdominal pain, | | | [...] 2019 | Visit | | [address] [facility] | | | | | | [address] [place], [place] | | | | | | [address] | | | | | | | | +--------+---------+ + + + | 01/17/ | Office | Cardiology | Brianna Stewart | | | 2020 | Visit | | [address] | | | | | | [address] | | | | | | [place] [address] | | | | | | [phone] | | | | | | | [...]
--- OUTSIDE RECORDS SUMMARY | ~2019-08-30 | XMS | Encounter Summary ---
Demographics + + + | Address | [address] | | | [place] [address] | + + + | Home Phone | | + + + | Preferred Language | Unknown | + + + | Marital Status | | + + + | Holiness Affiliation | Unknown | + + + [...] Providers + +------+ + | Care Director Software Quality Assurance Name | Role | Phone | + [...] | | | | [place], [place] | [phone] | | | | | [address] | | | | | | [phone] | | | +--------+ + + + [...] 2020 | Visit | | [address] [facility] | | | | | | [address] [place] | | | | | | [address] | | | | | | | | +--------+---------+ + + + | 01/17/ | Office | Cardiology | Brianna Stewart | | | 2019 | Visit | | [address] | | | | | | [address] | | | | | | [place] [address] | | | | | | [phone] | | | | | | | | +--------+---------+ + + + documented as of this encounter Visit Diagnoses Not on filedocumented in this encounter"
--- OUTSIDE RECORDS SUMMARY | ~2019-08-30 | XMS | Clinical Summary ---
Demographics + + + | Address | [address] | | | [place] [address] | + + + | Home Phone [...] Author | [facility] (Historical as of | | | 11-12-18) | + + + | Organization | [facility] (Historical as of | | | 11-12-18) [...] Team Providers + +------+ + | Care Franchise Sales Manager Name | Role | Phone [...] | Heart | SCIENTIFIC | | | /[id number] | | Qty: 1 on 05/19/2015 by | | | Kingdee | | | 322 | | Maxx Nayak MD | | | | | | | + +-------+-------+ +--------+--------+--------+ | Promus | Stent | N/A: | [place] | | | / | | Premier-05/19/2015Implanted: | | Heart | SCIENTIFIC | | | /[id number] | | Qty: 1 on 05/19/2015 by | | | Kingdee | | | [phone] | | Maxx [...] +------+-------+ + | MEDICARE | MEDICA | [id number] | | | [address] | | | RE | | | | [place] [address] | | | IP-OP | | | | | + +--------+ +------+-------+ + | COMMERCIAL OTHER | COMMER | [id number] | | | | | | CIAL [...] | manuel | | | [phone] | [phone] | + +--------+ +--------+ + +
--- OUTSIDE RECORDS SUMMARY | ~2019-08-30 | XMS | Encounter Summary ---
Demographics + + + | Address | [address] | | | [place] [address] | + + + | Home Phone [...] Team Providers + +------+ + | Care Tentering Machine Feeder Name | Role | Phone [...] | | | | | artery | RECREATIONAL THERAPY TECHNICIAN [address] | | | | | | disease | [address] | | | | | | involving | [place] | | | | | | [place] | [place] | | | | | | coronary | [address] | | | | | | artery of | Phone: | | | | | | [place] heart | [phone] | | | | | | without | Fax: | | | | | | angina | [phone] | | | | | | pectoris [...] + + | 07/12/ | Office | [facility] | Brianna tSewart | Coronary artery | | 2019 | Visit | CARDIOLOGY [place] | [address] | disease involving | | | | [address] | [address] | [place] coronary | | | | [address] | [place] [address] | artery of [place] | | | | [place] | [phone] | heart without angina | | | | [address] | | pectoris (Primary | | | | [phone] | | Dx); S/P drug | | [...] you an Echo to be done at [facility] in November , and see me in [...] labs , and have referred her to fisher pound net or trap Dr. Buchanan for a decline in her [...] home with instructions to follow-up with her sales inspector, but did not see suzan oconnor [...] vomiting, and tends to be dehydrated, and efliz s not always drink water on a [...] to absence of adequate TR jet. Mild MO. No pericardial or pleural effusion. IVC WNL, [...] previously , Otherwise stable rate 61 bpm, MO 134 ms, QRS 92 ms, QTC 430 ms EK11/27: ([facility] ER). Sinus rhythm with sinus arrhythmia, PVC's. T-wave inv ersion to inferior leads and lateral leads, less pronounced than EKG done in June and in e office today. Rate 67 bpm, MO 146 ms, QRS 82 ms, QTC 450 ms (personally reviewed by me recinos d compared to previous EKG's) EK: Sinus bradycardia, stable T-wave inversion to inferior and lateral leads , rate 52 bpm, MO 142 ms, QRS 86 ms, QTC 427 ms (personally reviewed by me and compared to previous EKG's) EK02/07/2018: Normal sinus rhythm, stable T-wave inversion to inferolateral leads. Rate 64 bpm, MO 138 ms, QRS 90 ms, QTC 441 ms (personally reviewed by me and compared to previo us EKG 02/01/2017, rate is faster, otherwise similar morphology) EK02/11/2019:( [facility] ER) Normal sinus rhythm, nonspecific ST-T wave abnormality to infero lateral leads, stable. Rate 64 bpm, MO 136 ms, QRS 106 ms, QTC 437 ms, tracing personally r eviewed by me EK04/24/2019: Sinus bradycardia, ST and T wave abnormalities to inferior and anterolatera l leads, similar to previous EKG's, rate 56 bpm, MO 150 ms, QRS 80 ms, QTC 441 ms seen perso monica reviewed by me, and similar morphology to EKG performed in January 2019 and serum, an d as well as January 2018 EK07/13/2019: Normal sinus rhythm ,ongoing T wave inversions to lateral leads, previous T wave inversion to V3 resolved, ongoing T wave inversion to inferior leads. Rate 62 bpm, MO 136 ms, QRS 90 ms, QTC 432 [...] appointment to follow-up with Dr. Buchanan, the fisher pound net or trap, on October 29. I have a gain [...] have her establish with one of the sales inspector who comes to [place]. 1. Coronary artery disease involving [place] coronary artery of [place] heart without angina pectoris 2. S/P drug [...] for continuity of care purp fr[facility] 07/14/2019 Prince figueredo in this encounter Plan of Treatment +--------+---------+ + + + | Date | Type | Specialty | Care Team | Description | +--------+---------+ + + + | 11/07/ | Office | Nephrology | Maxx Buchanan MD | | 2019 | Visit | | [address] | | | | | | [address] [place], [place] | | | | | | [address] | | | | | | | | +--------+---------+ + + + | 01/17/ | Office | Cardiology | Brianna Stewart | | 2019 | Visit | | [address] | | | | | | [address] | | | | | | [place] [address] | | | | | | [phone] | | | | | | | [...] 11/28/2019, Expires: | | | | | [place] coronary | 07/12/2020 | | | | | artery of [place] | | | | | | heart [...] the | | | | PDT | [place] coronary | results section. | | | | | artery of [place] | | | | | | heart [...] | | | | | BRIANNA TOBAR ([id number]) on | | | | | | [...] + + | Coronary artery disease involving [place] coronary artery of [place] heart without | | angina pectoris - [...]
--- OUTSIDE RECORDS SUMMARY | ~2019-08-30 | XMS | Encounter Summary ---
Demographics + + + | Address | [address] | | | [place] [address] | + + + | Home Phone [...] Team Providers + +------+ + | Care Turbine Inspector Name | Role | Phone | + +------+ + | Luanne Love | PCP | | | PA | | | + +------+ + Encounter Details +--------+ + + + + | Date | Type | Department | Care Team | Description | +--------+ + + + + | 09/09/ | Orders Only | [facility] | Aidan Becker, | | | 2018 | | CARDIOLOGY [place] | [address] | | | | | [address] | [place] [address] [place], [place] | | | | | [place], [place] | [address] | | | | | [address] | | | | | | [phone] | | | +--------+ + + + [...] [place] | | | | | | [address] | | | | | | | | +--------+---------+ + + + | 01/17/ | Office | Cardiology | Brianna Stewart | | | 2019 | Visit | | [address] | | | | | | [address] | | | | | | [place] [address] | | | | | | [phone] | | | | | | | | +--------+---------+ + + + documented as of this encounter Visit Diagnoses Not on filedocumented in this encounter"
--- OUTSIDE RECORDS SUMMARY | ~2019-08-30 | XMS | Encounter Summary ---
Demographics + + + | Address | [address] | | | [place] [address] | + + + | Home Phone | | + + + | Preferred Language | Unknown | + + + | Marital Status | | + + + | Adventist Affiliation | Unknown | + + + | Race | Unknown | + + + | Ethnic Group | Unknown | + + + Author + + + | Author | [facility] | | | and [place] | + + + | Organization | [facility] | | | and [...] Providers + +------+ + | Care Regional Sales Coordinator Name | Role | Phone | [...] + + | 02/08/ | Refill | [facility] | Brianna Stewart | Medication Refill | | 2019 | | CARDIOLOGY [place] | [address] | | | | | [address] | [address] | | | | | [address] | [place] [address] | | | | | [place] | [phone] | | | | | [address] | | | | | | [phone] | | | +--------+--------+ + + + [...] [place] | | | | | | [address] | | | | | | | | +--------+---------+ + + + | 01/17/ | Office | Cardiology | Brianna Stewrat | | | 2019 | Visit | | [address] | | | | | | [address] | | | | | | [place] [address] | | | | | | [phone] | | | | | | | | +--------+---------+ + + + documented as of this encounter Visit Diagnoses Not on filedocumented in this encounter"
--- OUTSIDE RECORDS SUMMARY | ~2019-08-30 | XMS | Encounter Summary ---
Demographics + + + | Address | [address] | | | [place] [address] | + + + | Home Phone | | + + + | Preferred Language | Unknown | + + + | Marital Status | | + + + | Confucianist Affiliation | Unknown | + + + | Race | Unknown | + + + | Ethnic Group | Unknown | + + + Author + + + | Author | [facility] | | | and [place] | + + + | Organization | [facility] | | | [...] Team Providers + +------+ + | Care Chief Radiation Therapist Name | Role | Phone | + +------+ + | Luanne Love | PCP | | | PA | | | + +------+ + Encounter Details +--------+ + + + + | Date | Type | Department | Care Team | Description | +--------+ + + + + | 07/06/ | Orders Only | [facility] | Brianna Stewart | | | 2018 | | CARDIOLOGY [place] | Stefani, CHICKEN DRESSER [address] | | | | | [address] | [address] | | | | | [address] | [place] [address] | | | | | [place] | [phone] | | | | | [address] | | | | | | [phone] | | | +--------+ + + + [...] [place] | | | | | | [address] | | | | | | | | +--------+---------+ + + + | 01/17/ | Office | Cardiology | Brianna Stewart | | | 2019 | Visit | | [address] | | | | | | [address]HEL[address]BY [address] | | | | | | [place] [address] | | | | | | [phone] | | | | | | | | +--------+---------+ + + + documented as of this encounter Visit Diagnoses Not on filedocumented in this encounter"
--- OUTSIDE RECORDS SUMMARY | ~2019-08-30 | XMS | Encounter Summary ---
Demographics + + + | Address | [address] | | | [place] [address] | + + + | Home Phone | | + + + | Preferred Language | Unknown | + + + | Marital Status | | + + + | Restorationist Affiliation | Unknown | + + + | Race | Unknown | + + + | Ethnic Group | Unknown | + + + Author + + + | Author | [facility] | | | and [place] | + + + | Organization | [facility] | | | [...] Providers + +------+ + | Care Medical Technologist Chemistry Name | Role | Phone | + [...] | | | | | artery | MANAGER [address] | | | | | | disease | [address] | | | | | | involving | [place] | | | | | | [place] | [place] | | | | | | coronary | [address] | | | | | | artery of | Phone: | | | | | | [place] heart | [phone] | | | | | | without | Fax: | | | | | | angina | [phone] | | | | | | pectoris [...] + + | 07/12/ | Office | [facility] | Brianna Stewart | Coronary artery | | 2019 | Visit | CARDIOLOGY [place] | [address] | disease involving | | | | [address] | [place] IRBY [address] | [place] coronary | | | | [address] | [place] [address] | artery of [place] | | | | [place] | [phone] | heart without angina | | | | [address] | | pectoris (Primary | | | | [phone] | | Dx); S/P drug | | [...] you an Echo to be done at [facility] in November , and see me in [...] labs , and have referred her to yacht builder Dr. Buchanan for a decline in her [...] home with instructions to follow-up with her radiator cleaner, but did not see suzan oconnor until [...] QRS 92 ms, QTC 430 ms EK11/27: ([facility] ER). Sinus rhythm with sinus arrhythmia, PVC's. T-wave inv ersion to inferior leads and lateral leads, less pronounced than EKG done in June and in e office today. Rate 67 bpm, VA 146 [...] rate is faster, otherwise similar morphology) EK02/11/2019:( [facility]) Normal sinus rhythm, nonspecific ST-T wave abnormality to infero lateral leads, stable. Rate 64 bpm, VA 136 ms, QRS 106 ms, QTC 437 ms, tracing personally r eviewed by me EK04/24/2019: Sinus bradycardia, ST and T wave abnormalities to inferior and anterolatera l leads, similar to previous EKG's, rate 56 bpm, VA 150 ms, QRS 80 ms, QTC 441 ms seen perso monica reviewed by me, and similar morphology to EKG performed in January 2019 and serum, an d as well as January 2018 EK07/13/2019: Normal sinus rhythm ,ongoing T wave inversions to lateral leads, previous T wave inversion to V3 resolved, ongoing T wave inversion to inferior leads. Rate 62 bpm, VA 136 ms, QRS 90 ms, QTC 432 [...] appointment to follow-up with Dr. Buchanan, the yacht builder, on October 29. I have a gain [...] have her establish with one of the radiator cleaner who comes to [place]. 1. Coronary artery disease involving [place] coronary artery of [place] heart without angina pectoris 2. S/P drug [...] for continuity of care purp [facility] 07/14/2019 Prince figueredo in this encounter Plan of Treatment +--------+---------+ + + + | Date | Type | Specialty | Care Team | Description | +--------+---------+ + + + | 11/07/ | Office | Nephrology | Maxx Buchanan MD | | 2019 | Visit | | [address] | | | | | | [address] [place], [place] | | | | | | [address] | | | | | | | | +--------+---------+ + + + | 01/17/ | Office | Cardiology | Brianna Stewart | | 2019 | Visit | | [address] | | | | | | [address] | | | | | | [place] [address] | | | | | | [phone] | | | | | | | [...] 11/28/2019, Expires: | | | | | [place] coronary | 07/12/2020 | | | | | artery of [place] | | | | | | heart [...] the | | | | PDT | [place] coronary | results section. | | | | | artery of [place] | | | | | | heart [...] | | | | | BRIANNA TOBAR ([id number]) on | | | | | | [...] + + | Coronary artery disease involving [place] coronary artery of [place] heart without | | angina pectoris - [...]
--- OUTSIDE RECORDS SUMMARY | ~2019-08-30 | XMS | Encounter Summary ---
Demographics + + + | Address | [address] | | | [place] [address] | + + + | Home Phone [...] Team Providers + +------+ + | Care Import Clerk Name | Role | Phone | [...] + + | 08/06/ | Documentati | [facility] | Rogelio, | Other (CT scan | | 2019 | on | NEPHROLOGY [place] | [address] | abdomen 08/04/19) | | | | [address] [place] | Pre School Teacher | | | | | [address] [place], [place] | | | | | | [address] | | | | | | [phone] | | | +--------+ + + + [...] [place] | | | | | | [address] | | | | | | (Fax) | | +--------+---------+ + + + | 01/17/ | Office | Cardiology | Brianna Stewart | | | 2019 | Visit | | [address] | | | | | | [place] [address] | | | | | | [place] [address] | | | | | | [phone] | | | | | | | | +--------+---------+ + + + documented as of this encounter Visit Diagnoses Not on filedocumented in this encounter"
--- OUTSIDE RECORDS SUMMARY | ~2019-08-30 | XMS | Encounter Summary ---
Demographics + + + | Address | [address] | | | [place] [address] | + + + | Home Phone [...] Team Providers + +------+ + | Care Material Requirements Planning Manager Name | Role | Phone | [...] Required | Required | | chronic | EMERGENCY SPECIALIST [address] | | | | | kidney | [address] | [address] | | | | | disease | [place] [address] | [place], | | | | | ([facility]) | [place], [place] | [place] [address] | | | | | | [address] | Phone: | | | | | | Phone: | [phone] | | | | | | [phone] | Fax: | | | | | | Fax: | [phone] | | | | | | [phone] | | + + + + + + + Encounter Details +--------+---------+ + + + | Date | Type | Department | Care Team | Description | +--------+---------+ + + + | 08/03/ | Office | [facility] | Maxx Buchanan MD | Chronic kidney | | 2020 | Visit | NEPHROLOGY [place] | [address] [facility] | disease, stage III | | | | [address] | [address] [facility] [place] | (moderate) (Primary | | | | [address] | [address] | Dx); Generalized | | | | [place], [place] | | abdominal pain; | | | | [address] | | Electrolyte | | | | [phone] | | imbalance risk | +--------+---------+ + [...] a BMP, CBC, intact PTH, rU/A, Urine pdeiplbfryko-ga-wqunchqrum ratio befor e she comes back in [...] conditions include: - CAD; without angina; of [place] artery - hypertension; essential; with renal disease; 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 - past NC; occured more than 28 days prior to admission - renal disease; CKD; Stage 3 - neuromuscular disease - arthritis Past Medical History: Diagnosis Date Chronic kidney disease, stage III (moderate) ([facility]) 09/23/2015 Coronary artery disease Hyperlipidemia Hypertension Joint pain Neuromuscular disorder ([facility]) NSTEMI (non-ST elevated myocardial infarction) ([facility]) 05/19/2015 Thyroid disease No past surgical [...] file Gets together: Not on file Attends jehovah's witness service: Not on file Active member of [...] a BMP, CBC, intact PTH, rU/A, Urine xzxdudgvhynp-rb-qegtmetpbv ratio befor e she comes back in [...] | | | | | | [address] [facility] | | | | | | [address] | | | | | | | | +--------+---------+ + + + | 01/17/ | Office | Cardiology | Brianna Stewart | | | 2020 | Visit | | [address] | | | | | | [address] | | | | | | [place] [address] | | | | | | [phone] | | | | | | | [...]
--- OUTSIDE RECORDS SUMMARY | ~2019-08-30 | XMS | Encounter Summary ---
Demographics + + + | Address | [address] | | | [place] [address] | + + + | Home Phone | | + + + | Preferred Language | Unknown | + + + | Marital Status | | + + + | Orthodoxy Affiliation | Unknown | + + + | Race | Unknown | + + + | Ethnic Group | Unknown | + + + Author + + + | Author | [facility] | | | and [place] | + + + | Organization | [facility] | | | [...] Team Providers + +------+ + | Care Jewelry Department Supervisor Name | Role | Phone | [...] | | | [address] | [place] [address] | | | | | [place] [address] | | | | | | [phone] | | | +--------+ + + + [...] 2020 | Visit | | [address] [facility] | | | | | | [address] [place] | | | | | | [address] | | | | | | | | +--------+---------+ + + + | 01/17/ | Office | Cardiology | GreggluizBrianna gardner | | | 2019 | Visit | | [address] | | | | | | [place] | | | | | | [facility] [address] | | | | | | [phone] | | | | | | | [...]
--- OUTSIDE RECORDS SUMMARY | ~2019-08-30 | XMS | Encounter Summary ---
Demographics + + + | Address | [address] | | | [place] [address] | + + + | Home Phone | | + + + | Preferred Language | Unknown | + + + | Marital Status | | + + + | Samaritan Affiliation | Unknown | + + + [...] Team Providers + +------+ + | Care Lpn Private Duty Name | Role | Phone | + [...] | | | | [place], [place] | [phone] | | | | | [address] | | | | | | [phone] | | | +--------+ + + + [...] 2020 | Visit | | [address] [facility] | | | | | | [address] [place] | | | | | | [address] | | | | | | | | +--------+---------+ + + + | 01/17/ | Office | Cardiology | Brianna Stewart | | | 2019 | Visit | | [address] | | | | | | [place] | | | | | | [place] [address] | | | | | | [phone] | | | | | | | | +--------+---------+ + + + documented as of this encounter Visit Diagnoses Not on filedocumented in this encounter"
--- OUTSIDE RECORDS SUMMARY | ~2019-08-30 | XMS | Encounter Summary ---
Demographics + + + | Address | [address] | | | [place] [address] | + + + | Home Phone | | + + + | Preferred Language | Unknown | + + + | Marital Status | | + + + | Mu-Ism Affiliation | Unknown | + + + | Race | Unknown | + + + | Ethnic Group | Unknown | + + + Author + + + | Author | [facility] | | | and [place] | + + + | Organization | [facility] | | | and [...] Team Providers + +------+ + | Care Manager Environmental Health And Safety Name | Role | Phone | + [...] Required | Required | | chronic | FUNCTIONAL SKILLS TUTOR [address] | | | | | kidney | [address] | [address] | | | | | disease | [place] [address] | [place], | | | | | ([facility]) | [place], [place] | [place] [address] | | | | | | [address] | Phone: | | | | | | Phone: | [phone] | | | | | | [phone] | Fax: | | | | | | Fax: | [phone] | | | | | | [phone] | | + + + + + [...] [address] | [address]BY [address] | [place] coronary | | | | [address] | [place] [address] | artery of [place] | | | | [place], [place] | [phone] | heart without angina | | | | [address] | | pectoris (Primary | | | | [phone] | | Dx); S/P drug | | [...] as I have not seen her in [facility] 2 years. On that visit I had her follow-up with her logistics lead to get alternative eyedrops to atenolol, which [...] home with instructions to follow-up with her binding folder machine Her current and previous testing and procedures [...] to absence of adequate TR jet. Mild IL. No pericardial or pleural effusion. IVC WNL, [...] previously , Otherwise stable rate 61 bpm, IL 134 ms, QRS 92 ms, QTC 430 ms EK11/27: ([facility]). Sinus rhythm with sinus arrhythmia, PVC's. T-wave inv ersion to inferior leads and lateral leads, less pronounced than EKG done in June and in e office today. Rate 67 bpm, IL 146 ms, QRS 82 ms, QTC 450 ms (personally reviewed by me grisel d compared to previous EKG's) EK: Sinus bradycardia, stable T-wave inversion to inferior and lateral leads , rate 52 bpm, IL 142 ms, QRS 86 ms, QTC 427 ms (personally reviewed by me and compared to previous EKG's) EK02/07/2018: Normal sinus rhythm, stable T-wave inversion to inferolateral leads. Rate 64 bpm, IL 138 ms, QRS 90 ms, QTC 441 ms (personally reviewed by me and compared to previo us EKG 02/01/2017, rate is faster, otherwise similar morphology) EK02/11/2019:( [facility]) Normal sinus rhythm, nonspecific ST-T wave abnormality to infero lateral leads, stable. Rate 64 bpm, IL 136 ms, QRS 106 ms, QTC 437 ms, tracing personally r eviewed by me EK04/24/2019: Sinus bradycardia, ST and T wave abnormalities to inferior and anterolatera l leads, similar to previous EKG's, rate 6 bpm, IL 150 ms, QRS 80 ms, QTC 441 [...] and treatment of her renal function to shovel operator, Dr. Buchanan. Her thyroid function was also [...] pro viders. 1. Coronary artery disease involving [place] coronary artery of [place] heart without angina pectoris 2. S/P drug [...] Placed This Encounter Procedures Ambulatory Referral to [facility] Nephrology The following portions of the patient's [...] contain inadvertent rec ognition errors. Mimi CHAVEZ [facility] Cardiology 05/15/2019 Pineda figueredo in this encounter Plan of Treatment +--------+---------+ + + + | Date | Type | Specialty | Care Team | Description | +--------+---------+ + + + | 11/07/ | Office | Nephrology | Maxx Buchanan MD | | 2019 | Visit | | [address] [facility] | | | | | | [address] [place], [place] | | | | | | [address] | | | | | | | | +--------+---------+ + + + | 01/17/ | Office | Cardiology | Brianna Stewart | | | 2019 | Visit | | [address] | | | | | | [place] | | | | | | [facility] [address] | | | | | | [phone] | | | | | | | | +--------+---------+ + + + + + +--------+ + + | Name | Type | Priori | Associated Diagnoses | Order Schedule | | | | ty | | | + + +--------+ + + | Ambulatory Referral | Outpatient | Routin | Chronic kidney | Ordered: 05/15/2019 | | to [facility] Nephrology | Referral | e | disease, stage III | | | | | | (moderate) | | + + +--------+ + + documented as of this encounter Visit Diagnoses + + | Diagnosis | + + | Coronary artery disease involving [place] coronary artery of [place] heart without | | angina pectoris - [...]
--- OUTSIDE RECORDS SUMMARY | ~2019-08-30 | XMS | Encounter Summary ---
Demographics + + + | Address | [address] | | | [place] [address] | + + + | Home Phone [...] Team Providers + +------+ + | Care Cocoa Bean Cleaner Name | Role | Phone | [...] | | | [address] | [place] [address] | | | | | [place] [address] | | | | | | [phone] | | | +--------+ + + + [...] 2020 | Visit | | [address] [facility] | | | | | | [address] [place] [place] | | | | | | [address] | | | | | | | | +--------+---------+ + + + | 01/17/ | Office | Cardiology | GreggluizBrianna gardner | | | 2019 | Visit | | [address] | | | | | | [place] | | | | | | [facility] [address] | | | | | | [phone] | | | | | | | [...]
--- OUTSIDE RECORDS SUMMARY | ~2019-08-30 | XMS | Encounter Summary ---
Demographics + + + | Address | [address] | | | [place] [address] | + + + | Home Phone | | + + + | Preferred Language | Unknown | + + + | Marital Status | | + + + | Sabianist Affiliation | Unknown | + + + | Race | Unknown | + + + | Ethnic Group | Unknown | + + + Author + + + | Author | [facility] | | | and [place] | + + + | Organization | [facility] | [...] Providers + +------+ + | Care Customer Service Associate Name | Role | Phone | [...] | | | [address] | [place] [address] | | | | | [place] [address] | | | | | | [phone] | | | +--------+ + + + [...] 2020 | Visit | | [address] [facility] | | | | | | [address] [place] | | | | | | [address] | | | | | | | | +--------+---------+ + + + | 01/17/ | Office | Cardiology | GreggluizBrianna gardner | | | 2019 | Visit | | [address] | | | | | | [place] | | | | | | [facility] [address] | | | | | | [phone] | | | | | | | [...]
--- OUTSIDE RECORDS SUMMARY | ~2019-08-30 | XMS | Encounter Summary ---
Demographics + + + | Address | [address] | | | [place] [address] | + + + | Home Phone [...] Team Providers + +------+ + | Care Reconciliation Manager Name | Role | Phone | [...] [address] | | | | | [place], [place] | [place] [address] | | | | | [address] | [phone] | | | | | [phone] | | | +--------+ + + + [...] [place] | | | | | | [address] | | | | | | | | +--------+---------+ + + + | 01/17/ | Office | Cardiology | Brianna Stewart | | | 2019 | Visit | | [address] | | | | | | [address] | | | | | | [place] [address] | | | | | | [phone] | | | | | | | [...] MV A Zack: 0.91 m/s MV Dec Lagrange: | | | 3.30 m/s2 MV DecT: 110.08 ms MV E Zack: 0.36 m/s MV E/A Ratio: | | | 0.39 MV PHT: 31.92 ms MVA By PHT: 6.89 cm2 Septal e': | | | 0.02 m/s Septal E/e': 17.87 Helicopter Pilot: DBS Authenticated | | | by: Aidan [facility] Report Date/Time: 01-27-2018 20:31:19 | | [...] | | cmLVPWd: 0.48 cmLVOT Area: 3.17 [id number] Diam: 2.01 cm%FS: 13.00 %EF(Teich): | | 27.65 %ESV(Teich): 100.79 mlLVIDs: 4.66 cmSV(Teich): 38.53 mlRVIDd: 2.57 | | cmLAESV(A-L): 31.09 mlLAESV Index (A-L): 19.31 ml/m2LAAs A2C: 11.42 [id number] A-L | | A2C: 27.79 mlLALs A2C: 3.98 cmLAAs A4C: 12.18 [id number] A-L A4C: 33.17 mlLALs | | A4C: 3.80 cmRAAs: 8.87 [id number] A-L: 20.88 mlRAESV MOD: 21.09 mlRALs: 3.19 | | cmTAPSE: 1.39 cmAV maxP.26 mmHgAV meanP.80 mmHgAV Vmax: 1.03 m/Damaris | | Vmean: 0.61 m/Damaris VTI: 18.51 cmAVA Vmax: 1.99 cm2AVA (VTI): 2.59 au5ZTAH (Vmax): | | 0.00 cm2/m2AVAI (VTI): 0.00 cm2/m2LVOT maxP.68 mmHgLVOT meanP.91 | | mmHgLVSI Dopp: 29.78 ml/m2LVSV Dopp: 47.95 mlLVOT Vmax: 0.64 m/sLVOT Vmean: 0.44 | | m/sLVOT VTI: 15.11 cmMV A Zack: 0.91 m/sMV Dec Lagrange: 3.30 m/s2MV DecT: 110.08 | | msMV E Zack: 0.36 m/sMV E/A Ratio: 0.39MV PHT: 31.92 msMVA By PHT: 6.89 [id number] | | e': 0.02 m/sSeptal E/e': 17.87 Helicopter Pilot: DBSAuthenticated by: Aidan | | [facility] Center[facility]Report Date/Time: 01-27-2018 20:31:19 IMPRESSION: 1. [...] A Zack: 0.91 m/s | |MV Dec Lagrange: 3.30 m/s2 | |MV DecT: 110.08 ms | |MV E Zack: 0.36 m/s | |MV E/A Ratio: 0.39 | |MV PHT: 31.92 ms | |MVA By PHT: 6.89 cm2 | |Septal e': 0.02 m/s | |Septal E/e': 17.87 | | | |Helicopter Pilot: DBS | |Authenticated by: Aidan Becker | [...]
--- OUTSIDE RECORDS SUMMARY | ~2019-08-30 | XMS | Encounter Summary ---
Demographics + + + | Address | [address] | | | [place] [address] | + + + | Home Phone [...] Providers + +------+ + | Care Personal Development Educator Name | Role | Phone | + +------+ + | Luanne Love | PCP | | | PA | | | + +------+ + Encounter Details +--------+ + + + + | Date | Type | Department | Care Team | Description | +--------+ + + + + | 02/01/ | Orders Only | [facility] | Brianna Stewart | | | 2017 | | CARDIOLOGY [place] | Stefani, CLOTH TESTER [address] | | | | | [address] | [place] | | | | | [address] | [place] [address] | | | | | [place] | [phone] | | | | | [address] | | | | | | [phone] | | | +--------+ + + + [...] [place] | | | | | | [address] | | | | | | | | +--------+---------+ + + + | 01/17/ | Office | Cardiology | Brianna Stewart | | | 2019 | Visit | | [address] | | | | | | [address] | | | | | | [place] [address] | | | | | | [phone] | | | | | | | | +--------+---------+ + + + documented as of this encounter Visit Diagnoses Not on filedocumented in this encounter"
--- OUTSIDE RECORDS SUMMARY | ~2019-08-30 | XMS | Encounter Summary ---
Demographics + + + | Address | [address] | | | [place] [address] | + + + | Home Phone | | + + + | Preferred Language | Unknown | + + + | Marital Status | | + + + | Zoroastrian Affiliation | Unknown | + + + | Race | Unknown | + + + | Ethnic Group | Unknown | + + + Author + + + | Author | [facility] | | | and [place] | + + + | Organization | [facility] | | | [...] Team Providers + +------+ + | Care Dye Range Feeder Name | Role | Phone | [...] | | | [address] | [place] [address] | | | | | [place] | [phone] | | | | | [address] | | | | | | [phone] | | | +--------+--------+ + + + [...] [place] | | | | | | [address] | | | | | | | | +--------+---------+ + + + | 01/17/ | Office | Cardiology | Brianna Stewart | | | 2019 | Visit | | [address] | | | | | | [address] | | | | | | [place] [address] | | | | | | [phone] | | | | | | | | +--------+---------+ + + + documented as of this encounter Visit Diagnoses Not on filedocumented in this encounter"
--- OUTSIDE RECORDS SUMMARY | ~2019-08-30 | XMS | Encounter Summary ---
Demographics + + + | Address | [address] | | | [place] [address] | + + + | Home Phone [...] Team Providers + +------+ + | Care Gun Repair Clerk Name | Role | Phone | [...] Required | Required | | chronic | BORING MACHINE OPERATOR [address] | | | | | kidney | [address] | [address] | | | | | disease | [place]RE[place] F | [place], | | | | | ([facility]) | [place], [place] | [place] [address] | | | | | | [address] | Phone: | | | | | | Phone: | [phone] | | | | | | [phone] | Fax: | | | | | | Fax: | [phone] | | | | | | [phone] | | + + + + + + + Reason for Visit + + + | Reason | Comments | + + + | Follow-up | 3 week | + + + Encounter Details +--------+---------+ + + + | Date | Type | Department | Care Team | Description | +--------+---------+ + + + | 05/15/ | Office | [facility] | Brianna Stewart | Coronary artery | | 2020 | Visit | CARDIOLOGY [place] | [address] | disease involving | | | | [address] | MICHELLE IRBY F | campo coronary | | | | [address] | [place] [address] | artery of campo | | | | [place], [place] | [phone] | heart without angina | | | | [address] | | pectoris (Primary | | | | [phone] | | Dx); S/P drug | | [...] I have not seen her in [facility] 2 years. On that visit I had her follow-up with her youth services librarian to get alternative eyedrops to atenolol, which [...] home with instructions to follow-up with her setter induction heating equipment Her current and previous testing and procedures [...] to absence of adequate TR jet. Mild DC. No pericardial or pleural effusion. IVC WNL, [...] previously , Otherwise stable rate 61 bpm, DC 134 ms, QRS 92 ms, QTC 430 ms EK11/27: ([facility]). Sinus rhythm with sinus arrhythmia, PVC's. T-wave inv ersion to inferior leads and lateral leads, less pronounced than EKG done in June and in e office today. Rate 67 bpm, DC 146 ms, QRS 82 ms, QTC 450 ms (personally reviewed by me grisel d compared to previous EKG's) EK: Sinus bradycardia, stable T-wave inversion to inferior and lateral leads , rate 52 bpm, DC 142 ms, QRS 86 ms, QTC 427 ms (personally reviewed by me and compared to previous EKG's) EK02/07/2018: Normal sinus rhythm, stable T-wave inversion to inferolateral leads. Rate 64 bpm, DC 138 ms, QRS 90 ms, QTC 441 ms (personally reviewed by me and compared to previo us EKG 02/01/2017, rate is faster, otherwise similar morphology) EK02/11/2019:( [facility]) Normal sinus rhythm, nonspecific ST-T wave abnormality to infero lateral leads, stable. Rate 64 bpm, DC 136 ms, QRS 106 ms, QTC 437 ms, tracing personally r eviewed by me EK04/24/2019: Sinus bradycardia, ST and T wave abnormalities to inferior and anterolatera l leads, similar to previous EKG's, rate 6 bpm, DC 150 ms, QRS 80 ms, QTC 441 [...] and treatment of her renal function to golf range attendant, Dr. Buchanan. Her thyroid function was also [...] pro viders. 1. Coronary artery disease involving campo coronary artery of campo heart without angina pectoris 2. S/P drug [...] Placed This Encounter Procedures Ambulatory Referral to [facility] Nephrology The following portions of the [...] contain inadvertent rec ognition errors. Mimi CHAVEZ [facility] Cardiology 05/15/2019 Pineda figueredo in this encounter Plan of Treatment +--------+---------+ + + + | Date | Type | Specialty | Care Team | Description | +--------+---------+ + + + | 11/07/ | Office | Nephrology | Maxx Buchanan MD | | 2019 | Visit | | [address] [facility] | | | | | | [address] [place], [place] | | | | | | [address] | | | | | | | | +--------+---------+ + + + | 01/17/ | Office | Cardiology | Brianna Stewart | | | 2019 | Visit | | [address] | | | | | | MICHELLE KAUFMAN | | | | | | [facility] [address] | | | | | | [phone] | | | | | | | | +--------+---------+ + + + + + +--------+ + + | Name | Type | Priori | Associated Diagnoses | Order Schedule | | | | ty | | | + + +--------+ + + | Ambulatory Referral | Outpatient | Routin | Chronic kidney | Ordered: 05/15/2019 | | to [facility] Nephrology | Referral | e | disease, stage III | | | | | | (moderate) | | + + +--------+ + + documented as of this encounter Visit Diagnoses + + | Diagnosis | + + | Coronary artery disease involving campo coronary artery of campo heart without | | angina pectoris - [...]
--- OUTSIDE RECORDS SUMMARY | ~2019-08-30 | XMS | Encounter Summary ---
Demographics + + + | Address | [address] | | | [place] [address] | + + + | Home Phone | | + + + | Preferred Language | Unknown | + + + | Marital Status | | + + + | Jain Affiliation | Unknown | + + + | Race | Unknown | + + + | Ethnic Group | Unknown | + + + Author + + + | Author | [facility] | | | and [place] | + + + | Organization | [facility] | | | [...] Team Providers + +------+ + | Care Tomato Pulper Operator Name | Role | Phone | + +------+ + | Luanne Love | PCP | | | PA | | | + +------+ + Encounter Details +--------+ + + + + | Date | Type | Department | Care Team | Description | +--------+ + + + + | 11/11/ | Orders Only | [facility] | Brianna Stewart | 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; | | | | [address] | MICHELLE IRBY F | Atherosclerotic | | | | [address] | [place] [address] | heart disease of | | | | [place], [place] | [phone] | [place] coronary | | | | [address] | | artery with angina | | | | [phone] | | pectoris (HCC); Old | | [...] 2019 | Visit | | [address] [facility] [address] | | | | | | [address] [place] | | | | | | [address] | | | | | | | | +--------+---------+ + + + | 01/17/ | Office | Cardiology | Brianna Stewart | | | 2019 | Visit | | [address] | | | | | | MICHELLE IRBY F | | | | | | [facility] [place] [address] | | | | | | [phone] | | | | | | | [...] of | | | | | | [place] coronary | | | | | | [...] + + | 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
--- OUTSIDE RECORDS SUMMARY | ~2019-08-30 | XMS | Encounter Summary ---
Demographics + + + | Address | [address] | | | [place] [address] | + + + | Home Phone | | + + + | Preferred Language | Unknown | + + + | Marital Status | | + + + | Spiritism Affiliation | Unknown | + + + [...] Team Providers + +------+ + | Care Automotive Product Engineer Name | Role | Phone | [...] 2017 | | CARDIOLOGY [place] | Stefani, OCEAN LIFEGUARD [address] | | | | | [address] | MICHELLE IRBY F | | | | | [address] | [place] [address] | | | | | [place] | [phone] | | | | | [address] | | | | | | [phone] | | | +--------+ + + + [...] [place] | | | | | | [address] | | | | | | | | +--------+---------+ + + + | 01/17/ | Office | Cardiology | Brianna Stewart | | | 2019 | Visit | | [address] | | | | | | MICHELLE IRBY F | | | | | | [place] [address] | | | | | | [phone] | | | | | | | | +--------+---------+ + + + documented as of this encounter Visit Diagnoses Not on filedocumented in this encounter"
--- OUTSIDE RECORDS SUMMARY | ~2019-08-30 | XMS | Encounter Summary ---
Demographics + + + | Address | [address] | | | [place] [address] | + + + | Home Phone [...] Team Providers + +------+ + | Care Machinery Repair Maintenance Supervisor Name | Role | Phone | [...] Required | Required | | chronic | DINING MANAGER [address] | | | | | kidney | [address] | [address] | | | | | disease | SUREKHA F | [place], | | | | | ([facility]) | [place], [place] | [place] [address] | | | | | | [address] | Phone: | | | | | | Phone: | [phone] | | | | | | [phone] | Fax: | | | | | | Fax: | [phone] | | | | | | [phone] | | + + + + + + + Reason for Visit + + + | Reason | Comments | + + + | Follow-up | 3 week | + + + Encounter Details +--------+---------+ + + + | Date | Type | Department | Care Team | Description | +--------+---------+ + + + | 05/15/ | Office | [facility] | Brianna Stewart | Coronary artery | | 2020 | Visit | CARDIOLOGY [place] | [address] | disease involving | | | | [address] | MICHELLE IRBY F | [place] coronary | | | | [address] | [place] [address] | artery of [place] | | | | [place], [place] | [phone] | heart without angina | | | | [address] | | pectoris (Primary | | | | [phone] | | Dx); S/P drug | | [...] as I have not seen her in [facility] 2 years. On that visit I had her follow-up with her final cigar and box examiner to get alternative eyedrops to atenolol, which [...] home with instructions to follow-up with her radio equipment repairer Her current and previous testing and [...] is faster, otherwise similar morphology) EK02/11/2019:( [facility] ER) Normal sinus rhythm, nonspecific ST-T [...] and treatment of her renal function to appliquer, Dr. Buchanan. Her thyroid function was also [...] pro viders. 1. Coronary artery disease involving [place] coronary artery of [place] heart without angina pectoris 2. S/P drug [...] Placed This Encounter Procedures Ambulatory Referral to [facility] Nephrology The following portions of the [...] inadvertent rec ognition errors. Mimi CHAVEZ [facility] Cardiology 05/15/2019 Pineda figueredo in this encounter Plan of Treatment +--------+---------+ + + + | Date | Type | Specialty | Care Team | Description | +--------+---------+ + + + | 11/07/ | Office | Nephrology | Maxx Buchanan MD | | 2019 | Visit | | [address] [facility] | | | | | | [address] [place], [place] | | | | | | [address] | | | | | | | | +--------+---------+ + + + | 01/17/ | Office | Cardiology | Brianna Stewart | | | 2019 | Visit | | [address] | | | | | | MICHELLE KAUFMAN | | | | | | [facility] [address] | | | | | | [phone] | | | | | | | | +--------+---------+ + + + + + +--------+ + + | Name | Type | Priori | Associated Diagnoses | Order Schedule | | | | ty | | | + + +--------+ + + | Ambulatory Referral | Outpatient | Routin | Chronic kidney | Ordered: 05/15/2019 | | to [facility] Nephrology | Referral | e | disease, stage III | | | | | | (moderate) | | + + +--------+ + + documented as of this encounter Visit Diagnoses + + | Diagnosis | + + | Coronary artery disease involving [place] coronary artery of [place] heart without | | angina pectoris - [...]
--- OUTSIDE RECORDS SUMMARY | ~2019-08-30 | XMS | Encounter Summary ---
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; | | | | [address] | MICHELLE IRBY F | Atherosclerotic | | | | [address] | [place] [address] | heart disease of | | | | [place], [place] | [phone] | [place] coronary | | | | [address] | | artery with angina | | | | [phone] | | pectoris (HCC); Old | | [...] 2019 | Visit | | [address] [facility] [address] | | | | | | [address] [place] | | | | | | [address] | | | | | | | | +--------+---------+ + + + | 01/17/ | Office | Cardiology | Brianna Stewart | | | 2019 | Visit | | [address] | | | | | | MICHELLE IRBY F | | | | | | [place] [place] [address] | | | | | | [phone] | | | | | | | [...] of | | | | | | [place] coronary | | | | | | [...] + + | 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
--- OUTSIDE RECORDS SUMMARY | ~2019-08-30 | XMS | Encounter Summary ---
Demographics + + + | Address | [address] | | | [place] [address] | + + + | Home Phone [...] Team Providers + +------+ + | Care Labor Operator Name | Role | Phone | + +------+ + | Luanne Love | PCP | | | PA | | | + +------+ + Encounter Details +--------+ + + + + | Date | Type | Department | Care Team | Description | +--------+ + + + + | 06/27/ | Orders Only | [facility] | Maxx Buchanan MD | Essential | | 2020 | | NEPHROLOGY [place] | [address] | hypertension | | | | [address] | [address] [place], [place] | (Primary Dx); | | | | [address] | [address] | Chronic kidney | | | | [place], [place] | | disease, stage III | | | | [address] | | (moderate) | | | | [phone] | | | +--------+ + + + [...] | | | | | | [address] [facility] | | | | | | [address] | | | | | | | | +--------+---------+ + + + | 01/17/ | Office | Cardiology | Brianna Stewart | | | 2019 | Visit | | [address] | | | | | | MICHELLE IRBY F | | | | | | [place] [address] | | | | | | [phone] | | | | | | | [...]
--- OUTSIDE RECORDS SUMMARY | ~2019-08-30 | XMS | Clinical Summary ---
Demographics + + + | Address | [address] | | | [place] [address] | + + + | Home Phone | | + + + | Preferred Language | Unknown | + + + | Marital Status | | + + + | Amish Affiliation | Unknown | + + + | Race | Unknown | + + + | Ethnic Group | Unknown | + + + Author + + + | Author | [facility] (Historical as of | | | 11-12-18) | + + + | Organization | [facility] (Historical as of | | | 11-12-18) [...] Team Providers + +------+ + | Care Drug Regulatory Affairs Specialist Name | Role | Phone | [...] | Heart | SCIENTIFIC | | | /[id number] | | Qty: 1 on 05/19/2015 by | | | Lingorami | | | 322 | | Maxx Nayak MD | | | | | | | + +-------+-------+ +--------+--------+--------+ | Promus | Stent | N/A: | [place] | | | / | | Premier-05/19/2015Implanted: | | Heart | SCIENTIFIC | | | /[id number] | | Qty: 1 on 05/19/2015 by | | | Lingorami | | | [phone] | | Maxx [...] +------+-------+ + | MEDICARE | MEDICA | [id number] | | | [address] | | | RE | | | | [place] [address] | | | IP-OP | | | | | + +--------+ +------+-------+ + | COMMERCIAL OTHER | COMMER | [id number] | | | | | | CIAL [...] | manuel | | | [phone] | [phone] | + +--------+ +--------+ + +
--- OUTSIDE RECORDS SUMMARY | ~2019-08-30 | XMS | Encounter Summary ---
Demographics + + + | Address | [address] | | | [place] [address] | + + + | Home Phone [...] Team Providers + +------+ + | Care Intelligence Consultant Name | Role | Phone | [...] + + | 08/03/ | Documentati | [facility] | Mercado, | Results (08/04/19) | | 2020 | on | NEPHROLOGY MARINA | [facility] | | | | | [address] | Jalousie Installer | | | | | [address] [facility] [place] | | | | | | [address] | | | | | | [phone] | | | +--------+ + + + [...] 2019 | Visit | | [address] [facility] | | | | | | [address] [place], [place] | | | | | | [address] | | | | | | | | +--------+---------+ + + + | 01/17/ | Office | Cardiology | Brianna Stewart | | | 2020 | Visit | | [address] | | | | | | MICHELLE IRBY F | | | | | | [place] [address] | | | | | | [phone] | | | | | | | [...]
--- OUTSIDE RECORDS SUMMARY | ~2019-08-30 | XMS | Encounter Summary ---
Demographics + + + | Address | [address] | | | [place] [address] | + + + | Home Phone [...] Providers + +------+ + | Care Supervisor Ditching Name | Role | Phone | + [...] + + | 02/08/ | Refill | [facility] | Brianna Stewart | Medication Refill | | 2019 | | CARDIOLOGY [place] | [address] | | | | | [address] | MICHELLE IRBY F | | | | | [address] | [place] [address] | | | | | [place] | [phone] | | | | | [address] | | | | | | [phone] | | | +--------+--------+ + + + [...] [place] | | | | | | [address] | | | | | | | | +--------+---------+ + + + | 01/17/ | Office | Cardiology | Brianna Stewart | | | 2019 | Visit | | [address] | | | | | | MICHELLE IRBY F | | | | | | [place] [address] | | | | | | [phone] | | | | | | | | +--------+---------+ + + + documented as of this encounter Visit Diagnoses Not on filedocumented in this encounter"
--- OUTSIDE RECORDS SUMMARY | ~2019-08-30 | XMS | Encounter Summary ---
Demographics + + + | Address | [address] | | | [place] [address] | + + + | Home Phone [...] Team Providers + +------+ + | Care Course Developer Name | Role | Phone | [...] + + | 08/03/ | Documentati | [facility] | Emrcado, | Results (08/04/19) | | 2020 | on | NEPHROLOGY MARINA | Ariana [facility] | | | | | [address] | Jewelry Model Maker | | | | | [address] [facility] [place] | | | | | | [address] | | | | | | [phone] | | | +--------+ + + + [...] 2019 | Visit | | [address] [facility] | | | | | | [address] [place], [place] | | | | | | [address] | | | | | | | | +--------+---------+ + + + | 01/17/ | Office | Cardiology | Brianna Stewart | | | 2020 | Visit | | [address] | | | | | | MICHELLE IRBY F | | | | | | [place] [address] | | | | | | [phone] | | | | | | | [...]
--- OUTSIDE RECORDS SUMMARY | ~2019-08-30 | XMS | Encounter Summary ---
Demographics + + + | Address | [address] | | | [place] [address] | + + + | Home Phone [...] Providers + +------+ + | Care Manager Servicing Name | Role | Phone | + [...] + + | 04/24/ | Office | [facility] | Greggeladio Brianna | Coronary artery | | 2020 | Visit | CARDIOLOGY [place] | [address] | disease involving | | | | [address] | MICHELLE IRBY F | douglas coronary | | | | [address] | [place] [address] | artery of douglas | | | | [place] | [phone] | heart without angina | | | | [address] | | pectoris (Primary | | | | [phone] | | Dx); S/P drug | | [...] you fasting labs to be done at [facility] in 2 weeks , but can [...] in this encounter Progress Notes Brianna Stewart, GROCERY STORE MANAGER - 04/24/2019 9:00 AM PSTFormatting of this [...] history, as she reports that her m dresser can be poor.. Today, I reviewed all [...] reported as negative x2.[facility] showed a normal CMP except for low potassium of 3.5, and elevated creatinine of 1.4 with GFR of 36, magnesium was slightly low at 1.9, and CBC was normal she was discharged home with instructions to follow-up with her compliance professional, but I have not seen her until [...] in the office today. Rate 67 bpm, ID 146 [...] rate is faster, otherwise similar morphology) EK02/11/2019:( [facility] ER) Normal sinus rhythm, nonspecific ST-T wave abnormality to infero lateral leads, stable. Rate 64 bpm, ID 136 ms, QRS 106 ms, QTC 437 ms, tracing personally r eviewed by me EK04/24/2019: Sinus bradycardia, ST and T wave abnormalities to inferior and anterolatera l leads, similar to previous EKG's, rate 6 bpm, ID 150 ms, QRS 80 ms, [...] lower heart rates. I asked my medical authorization specialist to send a message through to her cold press operator Dr. Mariano to see if she [...] my patient 1. Coronary artery disease involving douglas coronary artery of douglas heart without angina pectoris 2. S/P drug [...] contain inadvertent rec ognition errors. Mimi CHAVEZ [facility] Cardiology 04/24/2019 Pineda figueredo in this encounter Plan of Treatment +--------+---------+ + + + | Date | Type | Specialty | Care Team | Description | +--------+---------+ + + + | 11/07/ | Office | Nephrology | Maxx Buchanan MD | | 2019 | Visit | | [address] [facility] | | | | | | 160 [place], [place] | | | | | | [address] | | | | | | | | +--------+---------+ + + + | 01/17/ | Office | Cardiology | Brianna Stewart | | | 2019 | Visit | | [address] | | | | | | MICHELLE KAUFMAN | | | | | | [place] [address] | | | | | | [phone] | | | | | | | [...] the | | | | PST | douglas coronary | results section. | | | | | artery of douglas | | | | | | heart [...] | | | | | by [employer] Read Only, | | | | | | [employer] Michelle ([id number]), | | | | | | market editor Fuentes Mcgarry | | | | | | ([phone]) on 04/24/2019 | | | | | [...] + + | Coronary artery disease involving douglas coronary artery of douglas heart without | | angina pectoris - [...]
[~2019-08-30 16:34] MED LIST changes: +ONDANSETRON ODT4 MG PO
--- NOTE | 2019-08-30 20:20 | NUR ---
REPORT RECIEVED FROM BÁRBARA JORDAN. PT IN ROOM. NEW BAG IV FLUIDS PROVIDED. PT 99%, RA.
--- NOTE | 2019-08-30 21:00 | NUR ---
ASSESSMENT, VS AND I&O COMPLETED. LUNG SOUNDS CLEAR IN ALL LOBES, RR 20. SPO2 99%, RA. IV CDI, WNL, FLUSHED WELL. IV FLUIDS INFUSING PER ORDER. BOWEL TONES ACTIVE, PT UNSURE OF WHEN HER LAST BM WAS. SCABS X2 NOTED ON OUTER LEFT LEG, OPEN TO AIR. OCCASSIONAL COUGH, DRY. PT HAS SOB WITH MOVEMENT. SHE IS UNITED AUBURN, DOES NOT WEAR HEARING DEVICES. NO EDEMA NOTED. HR SR @ 80. SCHEDULED MEDS PROVIDED. PRN COUGH MED PROVIDED. HOB SLIGHLTY ELEVATED. ICE WATER PROVIDED. NO OTHER NEEDS AT THIS TIME. CALL LIGHT IN REACH.
--- NOTE | 2019-08-30 22:00 | NUR ---
PT RESTING IN BED, EYES CLOSED. HR SR @ 78. RR 28, RA. IV FLUIDS INFUSING PER ORDER. CALL LIGHT IN REACH.
--- NOTE | 2019-08-30 22:10 | NUR ---
PT RESTING IN BED, EYES CLOSED. HR SR @ 78. RR 18, RA. IV FLUIDS INFUSING PER ORDER. CALL LIGHT IN REACH.
--- NOTE | 2019-08-30 23:13 | NUR ---
PT RESTING IN BED, EYES CLOSED. HR SR @ 72. RR 24, RA. IV FLUIDS INFUSING PER ORDER. CALL LIGHT IN REACH.
--- NOTE | 2019-08-31 00:10 | NUR ---
ASSESSMENT, VS AND I&O COMPLETED. PT UP TO BR, SBA, BACK TO BED. LUNG SOUNDS DIMIINISHED IN LLL, CLEAR IN ALL OTHER LOBES. IV WNL, CDI, IV FLUIDS INFUSING PER ORDER. RR 26, RA. HR SR @ 78. NO OTHER NEEDS AT THIS TIME. CALL LIGHT IN REACH.
--- NOTE | 2019-08-31 01:05 | NUR ---
PT RESTING IN BED, EYES CLOSED. RR SHALLOW, RAPID @ 26. HR SR @ 74. IV FLUIDS INFUSING PER ORDER. CALL LIGHT IN REACH.
--- NOTE | 2019-08-31 02:12 | NUR ---
PT RESTING IN BED, EYES CLOSED. WAKES TO NAME. ORAL TEMP 98.9f. BP CUFF REPOSITIONED, VS COMPLETED. IV WNL, CDI. NO OTHER NEEDS AT THIS TIME. CALL LIGHT IN REACH.
--- NOTE | 2019-08-31 03:00 | NUR ---
PT RESTING IN BED, EYES CLOSED. RR 24, EVEN, SHALLOW, SPO2 97%. HR SR @ 60. CALL LIGHT IN REACH.
--- NOTE | 2019-08-31 04:12 | NUR ---
PT RESTING IN BED, EYES CLOSED. PT WAKES TO VOICE. ASSESSMENT, VS AND I&O COMPLETED. LUNG SOUNDS CLEAR IN ALL LOBES, OCCASSIONAL DRY COUGH. BOWEL TONES ACTIVE. CMS INTACT. NO EDEMA NOTED. PT DENIES SOB WHILE LAYING IN BED. PT DECLINES TO USE BR AT THIS TIME. IV WNL, CDI. IV FLUIDS INFUSING PER ORDER. RR 24, SHALLOW, SPO2 97% ON RA. HR SR @ 61. NO OTHER NEEDS AT THIS TIME. CALL LIGHT IN REACH.
--- NOTE | 2019-08-31 06:50 | NUR ---
ATTEMPTED TO START 2ND IV AND COMPLETE A BLOOD DRAW FOR LABS BY SALTY RN, FRANCISCO JAVIER RN AND ALYSSA RN X3 ATTEMPTS. UNSUCCESSFUL. BLOOD DRAW WITH BUTTERFLY NEEDLE UNSUCCESSFUL BY ALYSSA JORDAN. BLOOD DRAW COMPLETED FROM EXISTING IV SITE, 5ML BLOOD WASTED. SCHEDULED MED PROVIDED. PT UP TO BR, SBA AND BACK TO BED. WARM BLANKET PROVIDED. NO OTHER NEEDS AT THIS TIME. CALL LIGHT IN REACH.
--- NOTE | 2019-08-31 08:30 | NUR ---
pt sleeping soundly at this time. all vitals are wnl. pt has call light within reach. ordered breakfast for pt.
--- NOTE | 2019-08-31 09:30 | NUR ---
IV - iv site is intact, no redness or swelling noted, fluids infuse easily. pt denies pain at iv site.
--- NOTE | 2019-08-31 09:50 | NUR ---
pt up ambulated to the bathroom with a one person standby assist. pt denies pain, nausea, and sob. pt states "actually I feel pretty good". pt able to brush own teeth, wash hands and face. pt assisted with clean gown, clean attends, and changing linens. pt ambulated back to the chair to eat breakfast. pt is alert and oriented x4. vitals are wnl.
[2019-08-31] MEDS ORDERED: CIMETIDINE800 MG PO (11:09)
[2019-08-31] MEDS ORDERED: CLOPIDOGREL75 MG PO (11:10)
[2019-08-31] MEDS ORDERED: ATORVASTATIN CA40 MG PO (11:11)
[2019-08-31] MEDS ORDERED: LEVOTHYROXINE125 MCG PO (11:11)
--- NOTE | 2019-08-31 11:40 | NUR ---
PT UP AMBULATED TO THE BATHROOM WITH ONE PERSON STANDBY ASSIST. PT INDEPENDENT WITH PERSONAL CARES IN BATHROOM. PT AMBULATES BACK TO THE CHAIR. LUNCH ORDERED FOR PT. ALL VITLAS ARE WNL AT THIS TIME EXCEPT FOR BP WHICH IS SLIGHTLY ELEVATED, WILL CONTINUE TO MONITOR.
--- NOTE | 2019-08-31 12:30 | NUR ---
PT GIVEN LUNCH, SHE IS GEOVANNY SITTING UP IN CHAIR WELL. DENIES ANY OTHER NEEDS AT THIS TIME. IV SITE IS INTACT, NO SWELLING OR REDNESS, FLUIDS AND FLUSHES INFUSE EASILY.
[2019-08-31] MEDS ORDERED: DORZOLAMIDE HCL10 ML OS (14:25)
--- NOTE | 2019-08-31 16:18 | NUR ---
IV SITE IS INTACT, NO REDNESS OR SWELLING NOTED, FLUSHES EASILY, PT DENIES PAIN AT THE SITE. PT IS ALERT AND ORIENTED X4, TALKING ON PHONE WITH BOTH DAUGHTER LIZ AND SON BROOKE. PT UP AMBULATED TO BATHROOM WITH ONE PERSON STANDBY ASSIST. ABLE TO DO OWN CARES IN BATHROOM INCLUDING WASH HANDS INDEPENDENTLY. PT THEN BACK TO BED, REPORTS THAT SHE IS COLD, TEMP IS 100.5, 650 MG PO TYLENOL GIVEN.
--- NOTE | 2019-08-31 16:35 | NUR ---
Spoke with Shoaib by phone as she is covid +. States she lives in [place] with her spouse. He is also Covid + and in CCU. 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 She denies use of DME. Pt plans on going home at discharge. Asked if there is someone who can stay with her or someone she can stay with. She refuses this and states she plans on going home to her house, alone.
[2019-08-31] MEDS ORDERED: TIMOPTIC5 ML OS (18:23)
--- NOTE | 2019-08-31 18:55 | NUR ---
PT STABLE ALL SHIFT. UP AND AMBULATES TO THE BATHROOM WITH ONE PERSON STANDBY ASSIST. PT ABLE TO DO OWN PERSONAL CARES IN BATHROOM. PT HAS HAD QS PO INTAKE OF FOOD AND FLUIDS. PT DENIES PAIN, NAUSEA, AND SOB. VITALS ARE WNL, EXCEPT FOR ELEVATED BP, RESTARTED PT HOME CARDIAC MEDS. PT ABLE TO GO TWO ROOMS DOWN THE RODRIGUEZ TO ROOM 127 TO VISIT HER . PT TRANSPORTED VIA CHAIR WITH MASK ON, AND SHEET COVERING. PT ABLE TO VISIT FOR APPROXIMALTY 2 HOURS THEN BACK TO HER OWN ROOM. PT HAS TALKED ON THE PHONE TODAY WITH FAMILY AND [place] FROM DISCHARGE PLANNING.
--- NOTE | 2019-08-31 19:20 | NUR ---
SHIFT REPORT RECIEVED FROM TITO JORDAN. PT RESTING IN BED, WATCHING TV. NO NEEDS AT THIS TIME. CALL LIGHT IN REACH.
--- NOTE | 2019-08-31 20:10 | NUR ---
PT RESTING IN BED, WATCHING TV. ASSESSMENT, VS AND I&O COMPLETED LUNGS CLEAR, SOB WITH MOVEMENT. RR 22, SPO2 @ 97%. IV CDI, WNL, FLUSHED WELL. SCABS X2 ON LOWER OUTER LEFT LEG. PT AMBULATES WELL IN ROOM WITH SBA. NO OTHER NEEDS AT THIS TIME. CALL LIGHT IN REACH.
--- NOTE | 2019-08-31 21:37 | NUR ---
VS COMPLETED, SCHEDULED MEDS PROVIDED. PT COMPLAINS OF HAVING AN UPSET STOMACH AFTER DRINKING ENSURE, CRACKERS PROVIDED. NO OTHER NEEDS AT THIS TIME. CALL LIGHT IN REACH.
--- NOTE | 2019-08-31 23:34 | NUR ---
PT GETS OUT OF BED WITHOUT CALLING, FOUND IN BATHROOM. NO FALLS. PT HAS HAD AN EPISODE OF DIARRHEA. PT ASSITED TO GET CLEANED UP. PT EDUCATED ON THE USE OF THE CALL LIGHT AND NEED FOR ANTI-SLIP SOCKS. SOCKS PUT ON, PT BACK TO BED, SBA. BED ALARM ON. PT STATES SHE HAS NAUSEA, PRN NAUSEA MED PROVIDED. NO OTHER NEEDS AT THIS TIME. CALL LIGHT IN REACH.
--- NOTE | 2019-09-01 01:44 | NUR ---
PT RESTING IN BED, EYES CLOSED. RR 20, EVEN, UNLABORED. BED ALARM ON, CALL LIGHT IN REACH.
--- NOTE | 2019-09-01 03:07 | NUR ---
PT BED ALARM SOUNDING, PT STAYS ON BED UNTIL RN CAN PUT ON PPE AND GET IN TO ASSIST PT. UP TO BR, SBA, BACK TO BED. ASSESSMENT, VS AND I&O COMPLETED. TEMPOAL TEMP 100.7f, PRN FEVER MED PROVIDED. PT HAD ANOTHER LOOSE STOOL. PT DENIES PAIN. PT ENOURAGED TO DRINK WATER, USE CALL LIGHT AND I.S. AT BEDSIDE. IV CDI, WNL. NO OTHER NEEDS AT THIS TIME. CALL LIGHT IN REACH.
--- NOTE | 2019-09-01 05:00 | NUR ---
PT RESTING IN BED, EYES CLOSED. RR 22, EVEN, SHALLOW. BED ALARM ON, CALL LIGHT IN REACH.
--- NOTE | 2019-09-01 06:05 | NUR ---
PT RESTING IN BED, EYES CLOSED. PT WAKES TO VOICE. SCHEDULED MED PROVIDED. IV WNL. PT DENIES PAIN, DENIES NEED TO USE BR AND STATES HER STOMACH "FEELS BETTER". ICE WATER PROVIDED. NO OTHER NEEDS AT THIS TIME. CALL LIGHT IN REACH.
--- NOTE | 2019-09-01 06:11 | NUR ---
PT HAS SLEPT WELL THIS SHIFT. SHE DID HAVE A FEVER OF 100.7f THAT WAS MANAGED WITH TYLENOL. SHE HAD 2 EPISODES OF LOOSE STOOL AFTER COMPLAINING OF AN UPSET STOMACH. SHE RECIEVED ZOFRAN AFTER COMPLAINING OF NAUSEA, RESOLVED. IV WNL, CDI, FLUSHED WELL. LUNG SOUNDS CLEAR. PT HAS MODERATE SOB WITH ACTIVITY. PT GOT OUT OF BED WITHOUT CALLING, BED ALARMS ARE NOW ON. SHE AMBULATES WELL WITH SBA. PT IS CONCERNED ABOUT HER SPOUSE, OFTEN ASKING OF HIS CONDITION.
--- NOTE | 2019-09-01 08:10 | NUR ---
PT HAS APPROXIMATLY 50 ML GREEN EMISIS. 12.5 MG IV ZIFRAN GIVEN. IV SITES ARE INTACT, NO REDENSS OR SWELLING NOTED, BOTH SITES FLUSH EASILY. PT DENIES PAIN AND SOB. ALL VITALS ARE WNL AT THIS TIME.
--- NOTE | 2019-09-01 09:11 | NUR ---
PT ASSISTED UP FROM BED TO BATHROOM WITH STAND BY ASSIST ONLY. PT ABLE TO VOID INTO HAT. STANDS ON HER OWN AND WASHES HANDS AT THE SINK.
--- NOTE | 2019-09-01 09:20 | NUR ---
PT ASSISTED WITH BEDBATH WIPE DOWN IN THE BATHROOM. PT ABLE TO BRUSH OWN TEETH, WASH FACE, AND BRUSH HAIR. ASSISTED WITH PUTTING ON CLEAN ATTENDS AND CLEAN GOWN. PT THEN AMBULATED TO CHAIR WITH STAND BY ASSIST. PT GIVEN BREAKFAST WHILE IN CHAIR WELL AM MEDS. PT NOW HAS HER PERSONAL CELL PHONE AT HER SIDE. PT STATES "I'M NOT READY TO TALK ON THE PHONE YET THIS MORNING". PT DENIES SOB, GIVEN TYLENOL FOR 4/10 HEADACHE, PT GIVEN ZOFRAN 4 MG IV PREVENTATIVELY DUE TO NAUSEA REPORTED ON PRIOR SHIFT. PT COOPERATIVE AND POLITE, ABLE TO TAKE ALL MEDS EASILY. IV SITE IS INTACT, NO REDNESS OR SWELLING NOTED, FLUSHES EASILY. LINENS CHANGED ON BED.
--- NOTE | 2019-09-01 12:01 | NUR ---
MED REC COMPLETE
--- NOTE | 2019-09-01 12:20 | NUR ---
PT ONE PERSON STAND BY ASSIST UP TO THE BATHROOM. PT ABLE TO VOID, SMEAR OF BM. PT UP TO THE SINK TO WASH HANDS WITH SOAP AND WATER INDEPENDENTLY. WALKS BACK TO THE CHAIR STAND BY ASSIST. PT SETTLED IN CHAIR WITH LUNCH IN FRONT OF HER. ALL VITALS ARE WNL AT THIS TIME. PT DENIES PAIN, NAUSEA, AND SOB. PT DOES EXPRESS GRIEF/SADNESS OVER HUSBANDS DECLINING HEALTH. OFFERED TO ASSIST TO CALL FAMILY, PT DENIES DESIRE AT THIS TIME TO TALK WITH FAMILY.
--- NOTE | 2019-09-01 14:20 | NUR ---
ASSISTED PT TO BATHROOM. PT HAD A VERY VERY SMALL VOID THAT WAS NOT MEASURED. PT IS BACK IN CHAIR NOW. NO CONCERNS NOTED.
--- NOTE | 2019-09-01 15:20 | NUR ---
PT ASSISTED UP TO THE BATHROOM WITH ONE PERSON STAND BY ASSIST. PT DENIES PAIN, NAUSEA, AND SOB. PT REPORTS SOME SLIGHT DYSPEPSIA, 2 TUMS GIVEN. PT ABLE TO VOID INTO TOILET, THEN UP TO THE SINK TO WASH HANDS AND FACE. PT AMBULATES BACK TO BED. PT GIVEN DINNER. TEMP IS SLIGHTLY ELEVATED, GIVEN 650 MG PO TYLENOL. PT DENIES THE DESIRE TO TALK TO FAMILY ON THE PHONE. PT GIVEN CARDS, MESSAGES, AND RODRIGUEZ FROM FAMILY AND WELL-WISHERS. IV SITE IS INTACT, NO REDNESS OR SWELLING NOTED, FLUSHE INFUSES EASILY.
--- NOTE | 2019-09-01 16:30 | NUR ---
SPOKE WITH SON RODOLFO BY PHONE [phone]. DISCUSSED THAT PATIENT HAS INDICATED TO [facility] TERRITORY MANAGER GENERAL SALES THAT SHE WANTS TO DISCHARGE HOME AND DOES NOT NEED HELP. HE STATES HIS MOTHER HAS SOME DEMENTIA. HE STATES SHE IS NOT ABLE TO BE HOME ALONE SAFELY. HE STATES SHE CANNOT TAKE HER MEDICATIONS SAFELY, AND HAS FALLS DUE TO NOT AVOIDING UNSAFE MOVEMENT OR TERRAIN. HE STATES HIS DAD DOES HER MEDICATIONS AND KEEPS HER SAFE. HE STATES HE CANNOT TAKE HER HOME TO HIS HOUSE WHERE SHE WOULD EXPOSE HIS FAMILY TO COVID. HE STATES HE IS TRYING TO [place] SO HE CAN WORK. HE TESTED NEGATIVE BUT WAS EXPOSED TO THEM SINCE AND IS TRYING NOT TO TAKE THAT RISK AGAIN AT THIS TIME. HE STATES HIS SISTER HAS NOT BEEN EXPOSED. WE DISCUSSED THAT IF SHE WENT HOME AT THIS TIME TO QUARANTINE, THEY CANNOT HIRE HELP NO ONE IN THIS AREA WILL COME WITH A POSITIVE COVID SCREEN, AND ALSO SHE CANNOT GO TO A FACILITY WITH A POSITIVE SCREEN. HE STATES IF SHE WERE TESTED AGAIN AND IT WAS NEGATIVE THEN HE OR HIS SISTER WOULD HAVE NO PROBLEM TAKING CARE OF HER. WE AGREED THAT SHE DOES NOT HAVE A SAFE PLAN FOR DISCHARGE AT THIS TIME AND THAT I WILL SPEAK WITH DR SANTOS. DISCUSSED THIS WITH DR SANTOS. SHE WILL ORDER ANOTHER COVID SCREEN.
--- NOTE | 2019-09-01 18:40 | NUR ---
REPEAT COVID TEST - DISCUSSED WITH PLAN TO NOT RE-TEST PT TONIGHT, AND OBTAIN RECORDS FROM 'S [facility]ICE [facility] TO FIND WHEN ORIGNAL POSITIVE COVID TEST WAS DONE. IS IN AGREEMENT WITH THIS PLAN, AT THIS TIME WILL HOLD OFF ON RE-TESTING FOR COVID.
--- NOTE | 2019-09-01 19:20 | NUR ---
SHIFT REPORT RECIEVED FROM TITO JORDAN. PT RESTING IN BED, EYES CLOSED. RR 20, EVEN, SHALLOW. BED ALARM ON, CALL LIGHT IN REACH.
--- NOTE | 2019-09-01 20:31 | NUR ---
ASSESSMENT, VS AND I&O COMPLETE. PT UP TO BR, SBA, BACK TO BED. SCABS NOTED TO LOWER LEFT LEG. NO EDEMA NOTED. PT DENIES PAIN. LUNGS CLEAR IN ALL LOBES. IV WNL, CDI, FLUSHED WELL. PT EDUCATED TO DRINK WATER OFTEN POSSIBLE AND USE THE CALL LIGHT. NO OTHER NEEDS AT THIS TIME. CALL LIGHT IN REACH.
--- NOTE | 2019-09-01 20:51 | NUR ---
PT SISTER JED CALLED, PT SLEEPING. JED ASKED TO HAVE PT CALL HER BACK. ONCE PT WAS AWAKE, SHE DECLINED TO RETURN THE CALL.
--- NOTE | 2019-09-01 22:00 | NUR ---
PT RESTING IN BED, EYES CLOSED. RR 20, EVEN, UNLABORED. BED ALARM ON. CALL LIGHT IN REACH.
--- NOTE | 2019-09-01 23:31 | NUR ---
PT RESTING IN BED, EYES CLOSED. RR 18, EVEN, UNLABORED. BED ALARM ON, CALL LIGHT IN REACH.
--- NOTE | 2019-09-02 00:18 | NUR ---
PT AWAKE IN ROOM. PT STATES "GOOD MORNING", PT REORIENTED TO TIME OF NIGHT. PT DENIES ANY NEEDS AT THIS TIME. BED ALARM ON, CALL LIGHT IN REACH.
--- NOTE | 2019-09-02 01:30 | NUR ---
PT RESTING IN BED, EYES CLOSED. RR 18, EVEN, UNLABORED. CALL LIGHT IN REACH.
--- NOTE | 2019-09-02 03:30 | NUR ---
PT RESTING IN BED, EYES CLOSED. RR 22, EVEN, UNLABORED. CALL LIGHT IN REACH, BED ALARM ON.
--- NOTE | 2019-09-02 05:15 | NUR ---
PT ATTEMPTING TO GET OUT OF BED UNASSISTED. PT WAITS IN BED FOR RN TO ENTER ROOM AFTER RN TELLS HER TO WAIT FROM THE DOORWAY. PT UP TO BR, 1 PA, BACK TO BED. PT APPEARS TO BE MORE DEPENDENT ON STAFF FOR STABILITY WHEN AMBULATING THAN YESTERDAY. ASSESSMENT, VS, DW AND I&O COMPLETED. TEMPORAL TEMP 100.7f, PRN FEVER MED PROVIDED. SCHEDULED MED PROVIDED. LUNGS CLEAR IN ALL LOBES. RR 22, EVEN, UNLABORED. RR EFFORT AND RATE RAISE WITH ACTIVITY. PT WASHED HER FACE AND BRUSHED HER HAIR. ICE WATER PROVIDED. ENSURE, COFFEE, TEA AND SNACKS OFFERED, PT DECLINES. PT ASKS ABOUT SPOUSE, INFORMED HER HE SLEPT WELL. PT EDUCATED ABOUT USING THE CALL LIGHT AND THE IMPORTANCE OF DRINKING FLUIDS. SHE SAYS "I DON'T DRINK WATER." WHEN ASKED WHAT SHE DRINKS AT HOME, SHE SHRUGS HER SHOULDERS. NO OTHER NEEDS AT THIS TIME. CALL LIGHT IN REACH, BED ALARM ON.
--- NOTE | 2019-09-02 05:43 | NUR ---
PT SLEPT ALL NIGHT EXCEPT GETTING UP TWICE TO USE BR. PT RECIEVED TYLENOL FOR 100.7f TEMPORAL. PT IS NOT DRINKING FLUIDS WELL THIS SHIFT AND DECLINES EVERYTHING OFFERED EXCEPT WATER WITH MEDICATIONS. SHE VOID TWICE, 300ML AND AN UNMEASURED, URINE IS YELLOW, CLEAR AND WITHOUT ODOR. SHE SEEMS WEAKER THIS MORNING, DEPENDING ON STAFF MORE FOR BALANCE. SHE ASKS ABOUT SPOUSE FREQUENTLY. LUNGS ARE CLEAR IN ALL LOBES. RR TRENDING NEAR 20, SHALLOW, UNLABORED. SHE DOES HAVE MILD SOB WITH ACTIVITY. SPO2 TRENDING >95%. BP AND PULSE WNL. IV CDI, WNL, FLUSHED WELL. SHE TRIES TO GET OUT OF BED ON HER OWN SO BED ALARMS ARE ON. SHE HAS BEEN VERY DROWSY ALL SHIFT, BARELY WAKING FOR CARES AND MEDICATION ADMINISTRATION.
--- NOTE | 2019-09-02 07:50 | NUR ---
PT SLEEPING SOUNDLY AT THIS TIME IN BED, RESP EVEN AND UNLABORED, APPEARS TO BE COMFORTABLE.
--- NOTE | 2019-09-02 09:10 | NUR ---
WOKE PT UP AND ASSISTED TO AMBULATED TO THE BATHROOM. PT ABLE TO VOID, CLEAN ATTENDS PLACED. PT UP TO THE SINK TO WASH HANDS, BRUSH TEETH AND WASH FACE WITH SOME MILD PROMPTING FROM RN. PT GIVEN A WIPE DOWN BATH WHILE STANDING AT THE SINK. CLEAN GOWN PLACED. PT THEN AMBULATED TO THE CHAIR TO SIT UP AND EAT BREAKFAST. PT ABLE TO TAKE PILLS EASILY. PT DENIES PAIN, NAUSEA, AND SOB THIS AM, SHOWS NO SOB WITH ACTIVITY, OCCASIONAL COUGHING. PT ONLY EATS A FEW BITES OF HER BREAKFAST, STATES "I'M NOT A BIG BREAKFAST EATER". IV SITE IS INTACT, NO REDNESS OR SWELLING NOTED, FLUSHES EASILY.
--- NOTE | 2019-09-02 09:45 | NUR ---
called pt son Reno per pt request. pt able to visit on the phone for a while, she is smiling and laughing. pt sitting up in the chair with call light within reach.
--- NOTE | 2019-09-02 11:10 | NUR ---
pt used call light. pt reports that she needs to go to the bathroom and is cold. stand by assisted pt up out of the chair and to ambulate into the bathroom. pt able to void and have a small bm, assisted pt to wipe/clean-up after. pt able to wash hands with soap at sink, then ambulated back to bed. pt given 3 warm blankets and tucked into bed. bed alarm is on, call light is within reach.
--- NOTE | 2019-09-02 13:05 | NUR ---
PT IS SLEEPING, WAKES EASILY WITH TAKING VITALS. PT HAS LOW GRADE TEMP 99.9, 650 MG PO TYLENOL GIVEN. PT ADJUSTED UP IN BED AND GIVEN LUNCH TRAY, PT ABLE TO FEED SELF. PT DENIES NAUSEA AND SOB. PT REMAINS IN BED AT THIS TIME, BED ALARM IS ON, CALL LIGHT IS WITHIN REACH.
--- NOTE | 2019-09-02 15:50 | NUR ---
PT USED CALL LIGHT, ONE PERSON STANDBY ASSIST UP TO BATHROOM, INCONTINENT OF SMALL AMOUNT OF LOOSE STOOL IN ATTENDS. PT HAS MORE SLIGHTLY LOOSE STOOL IN THE TOILET. ASSISTED PT WITH ADAM CARE, CLEAN ATTENDS IN PLACE. PT WASHES HANDS AT THE SINK. AMBULATED BACK TO CHAIR WITH ONE PERSON ASSIST. CALL LIGHT WITHIN PT REACH. PT VITALS ARE ALL WNL. PT DENIES PAIN, NAUSEA, AND SOB, HOEVER REPORTS SOME FATIQUE.
--- NOTE | 2019-09-02 16:10 | NUR ---
PT APPEARS TO BE MORE ALERT AND ORIENTED THIS AFTERNOON, ALSO MORE INTERACTIVE.
--- NOTE | 2019-09-02 17:55 | NUR ---
PT USED CALL LIGHT. PT STAND BY ASSIST TO BATHROOM FROM CHAIR. PT ABLE TO VOID. WASHED HANDS AT THE SINK, THEN AMBULATED TO BED. PT TUCKED IN, GIVEN CALL LIGHT, PT GIVEN DINNER, BED ALARM IS ON. PT DENIES ANY OTHER NEEDS AT THIS TIME.
--- NOTE | 2019-09-02 20:00 | NUR ---
PATIENT RESTING IN BED WITH EYES CLOSED. BED ALARM ACTIVE. RR 18, EVEN AND NONLABORED. CALL LIGHT IN REACH.
--- NOTE | 2019-09-02 21:45 | NUR ---
PATIENT SLEEPING SOUNDLY. WOKE TO VOICE AND TOUCH. PATIENT UP TO THE BATHROOM, SBA BY ROZINA CLEMENT. PATIENT IS MILDLY UNSTEADY. NEW ATTENDS PROVIDED. PATIENT VOIDED A SMALL AMOUNT, MISSING THE HAT. PATIENT VS STABLE. 99% O2 SAT ON ROOM AIR. ORAL TEMP ELEVATED 100.7 F. PRN TYLENOL PROVIDED. PATIENT ENCOURAGED TO DRINK AT LEAST 100MLS WITH EVENING MEDS. PATIENT DENIES PAIN OR SOB. NO GI UPSET OR HEARTBURN. PATIENT KNOWS SHE IS IN THE HOSPITAL, DOES NOT GIVE THE NAME OF THE HOSPITAL OR HER SPECIFIC REASON FOR BEING ILL. PATIENT DENIES ANY NEEDS. BED ALARM ACTIVE. REMINDED PATIENT HOW TO USE THE CALL LIGHT. LIGHTS DIMMED.
--- NOTE | 2019-09-03 | NUR ---
PATIENT APPEARS TO BE SLEEPING SOUNDLY. RR 18. ALLOWED PATIENT TO REST. BED ALARM ACTIVE. CALL LIGHT IN REACH.
--- NOTE | 2019-09-03 02:36 | NUR ---
PATIENT CONTINUES TO SLEEP SOUNDLY. RR 20. BED ALARM ACTIVE. ALLOWED PATIENT TO REST.
--- NOTE | 2019-09-03 06:02 | NUR ---
PATIENT WOKE EASILY TO VOICE. ASSISTED PATIENT TO WASH HER FACE AND VS DONE. PATIENT REPORTS FEELING "TIRED", BUT NO OTHER COMPLAINTS. PATIENT UP TO THE BATHROOM, UNMEASURED VOID. PATIENT PROVIDED WITH THYROID MEDS AND A CLEAR ENSURE, WHICH SHE DRANK HALF OF. ENCOURAGED PATIENT TO DRINK WHEN AWAKE. PATIENT RETURNED TO BED. CALL LIGHT IN REACH, BED ALARM ACTIVE.
--- NOTE | 2019-09-03 07:32 | NUR ---
RECIEVED REPORT FROM NAZIA JORDAN. PT APPEARS TO BE RESTING AT THIS TIME WITH RESPIRATIONS NOTED.
--- NOTE | 2019-09-03 08:41 | NUR ---
PT APPEARS TO BE RESTING AT THIS TIME. RESPIRATIONS NOTED AND PT APPEARS COMFORTABLE
--- NOTE | 2019-09-03 09:24 | NUR ---
IN PTS ROOM TO DO ASSESSMENT AND GIVE MORNING MEDS
--- NOTE | 2019-09-03 09:30 | NUR ---
WHEN THIS RN IN ROOM WITH PT, THIS RN NOTICED THAT PT HAD EXERTIONAL SHORTNESS OF BREATH GOING BETWEEN BED TO RESTROOM TO CHAIR. WHEN PT GOT BACK TO THE CHAIR IT TOOK HER A FEW MINUTES TO RECOVER FROM THE EXERTION. PT DE-SATED TO 88% ON ROOM AIR. PT ABLE TO COUGH AND THEN CATCH BREATH WHICH ALLOWED HER SATS TO COME UP TO 94% ON ROOM AIR. THIS RN WILL CONTINUE TO MONITOR PTS EXERTIONAL SHORTNESS OF BREATH. PT DOES HAVE A DRY COUGH BUT SHE IS ABLE TO COUGH HARD ENOUGH TO LOOSEN SOME MUCOUS TO HAVE THE OCCASIONAL PRODUCTIVE COUGH.
--- NOTE | 2019-09-03 10:14 | NUR ---
THIS RN OUT OF ROOM AT THIS TIME. PT UP TO CHAIR AFTER HAVING A GOOD BED BATH, PT IS SIPPING ON COFFEE AT THIS TIME, PT STATES THAT SHE DOESN'T HAVE MUCH OF AN APPETITIE THIS AM. PT SEEMS A BIT WITHDRAWN AND HAS A FLAT AFFECT, THIS RN ASKED PTS NURSE FROM YESTERDAY AND THAT RN STATES THAT THIS IS PTS NORM IN THE AM. CALL LIGHT WITHIN REACH. DISCUSSED WITH PT TO PUSH IT WHEN SHE NEEDS SOMETHING BUT TO WAIT TO GET UP WITH THIS RN
--- NOTE | 2019-09-03 11:30 | NUR ---
PT PUT PATHOLOGY LABORATORY TECHNOLOGIST LIGHT TO ASK TO GO BACK TO BED. DISCUSSED WITH PT THAT LUNCH WILL UP UP SHORTLY AND AFTER LUNCH WE CAN GET HER BACK TO BED. PT COMPLIANT WITH THIS PLAN
--- NOTE | 2019-09-03 12:30 | NUR ---
THIS RN NOTICED THAT PT HAD TRANSFERRED HERSELF BACK TO BED BETWEEN [phone]. PT APPEARS TO BE SAFE IN BED AT THIS TIME
--- NOTE | 2019-09-03 13:30 | NUR ---
THIS RN IN PTS ROOM. PT STILL IN BED AT THIS TIME CURLED UP UNDER 1 SMALL BLANKET. PT STATES THAT SHE IS COLD AND TIRED. ASSISSTED PT TO RESTROOM, PT HAD VERY SMALL BOWEL MOVEMENT AND SCANT URINE. ASSISSTED PT BACK TO BED, PT HAD MINIMAL SHORTNESS OF BREATH WITH EXERTION AT THIS TIME. PT NEEDING TO HOLD THIS RN'S HAND OR GRAB ON TO THINGS SHE WALKED FOR BALANCE. LISTENED TO PTS LUNG SOUNDS WITH EAR BUD STETHASCOPE FROM RESPIRATORY THERAPY. PT IS MOVING AIR WELL THROUGHOUT HER LUNGS, WHEN PT TAKES A DEEP BREATH SHE DOES A MINOR COUGHING FIT. THIS RN PUT PT ON CPOX TO KEEP AN EYE ON PTS O2 SATURATION. PT MAINTAINING O2 SATS GREATER THAN 91% ON ROOM AIR.
--- NOTE | 2019-09-03 15:00 | NUR ---
PT IN BED SITTING UP RIGHT. PT APPEARS TO BE RESTING COMFORTABLY. PT APPEARS TO HAVE ONLY EATEN HER ICE CREAM AND DRANK HER COFFEE AT LUNCH. PT HAD STATED WHEN SHE TOOK A BITE OF HER COLD TURKEY SANDWICH THAT "THE TURKEY IS DRY" AND PUT THE SANDWICH BACK DOWN. THIS RN DID OFFER AT THE TIME TO PROVIDE THE PT WITH ARRIOLA OR MUSTARD AND APPLESAUCE, PT DENIED ALL OF THIS AT THE TIME.
--- NOTE | 2019-09-03 16:00 | NUR ---
IN PTS ROOM. THIS RN WAS WALING BY PTS ROOM WHEN THIS RN NOTICED THAT PT WAS SITTIN UP IN BED, PT MOTIONED TO THIS RN TO COME IN. RN SPOKE TO PT WITH DOOR SLIGHTLY AJAR. PT STATED SHE NEEDED TO USE THE RESTROOM. THIS RN STATED THAT SHE WOULD BE RIGHT. ASSISSTED PT TO RESTROOM. PT WAS SLIGHTLY INCONTINENT IN HER ATTENDS. THIS RN ASSISTED PT TO CHANGE ATTENDS. THEN THIS RN ASSISTED PT TO GO BACK TO BED. PT SITTING IN BED COMFORTABLE WITH CALL LIGHT WITHIN REACH
--- NOTE | 2019-09-03 17:30 | NUR ---
in pts room to give pt her dinner tray. pt states that she is tired and would like to stay in bed for dinner. pt needed assisstance cutting her food but other than that pt was ready. pt states that she needs nothing at this time
--- NOTE | 2019-09-03 18:36 | NUR ---
PT HAD A GOOD DAY TODAY. PT SEEMED A BIT DROWSY THIS AM AND THEN THAT CONTINUED THROUGHOUT THE DAY. PT DID GET UP TO THE CHAIR FOR A FEW HOURS. THIS RN DID GIVE PT 650MG OF TYLENOL THIS AM FOR A 99.4f TEMP. ALL URINE WAS UNMEASURED TODAY- KEPT MISSING THE HAT. DEPENDED ON STAFF FOR BALANCE TO WALK. LUNGS ARE CLEAR IN ALL LOBS, PT DOES HAVE A DRY COUGH BUT CAN GET SOME PRODUCITON [id number]. PT DE-SATED TO 88% ON ROOM AIR WHILE TRANSFERRING THIS AM, OTHERWISE O2 SATS HAVE BEEN >91% ON ROOM AIR.
--- NOTE | 2019-09-03 19:05 | NUR ---
PT PRESSED CALL LIGHT TO ALTERT THIS RN THAT SHE HAD TO PEE. PT BACK TO BED AND PT THEN STATED THAT SHE HAD AN UPSET STOMACH PROVIDED PT WITH TUMS AND 4MG OF ZOFRAN AT THIS TIME
--- NOTE | 2019-09-03 20:54 | NUR ---
UTILIZES CALL LIGHT, STATES THAT SHE FEELS SICK. PT EXITING BED DAIRY FEED SALES CONSULTANT ENTERING THE ROOM. PT ASSISTED TO THE BATHROOM WITH 1 PA. PT INCONTINENT OF STOOL TO ATTENDS. FRESH ATTENDS PLACED. PT WALKS BACK TO BED. PT ASSESSMENT COMPLETE. PT DENIES SOB. PT REPORTS THAT NAUSEA IS RESOLVED, CONTINUES TO HAVE SOME STOMACH PAIN. PT COUGHING WHILE DAIRY FEED SALES CONSULTANT IN ROOM. REPORTS PAIN TO CHEST WITH COUGH. PRN TO BE ADMINISTERED, SEE EMAR. LUNGS NOT AUSCULTATED DUE TO PPE. SA02 92% ON RA. IV FLUSHED, WNL. PT RESTING ON HER R SIDE. DENIES FURTHER NEEDS. CALL LIGHT IN REACH.
--- NOTE | 2019-09-03 22:31 | NUR ---
WRTIER TO ROOM FOR VAULT MANAGER. PT RESTING WITH EYES CLOSED, RESPIRATIONS EVEN AND UNLABORED. PT WAKES EASILY. REPORTS THAT PAIN IS IMPROVED AFTER TAKING TYLENOL. DENIES FURTHER NEEDS AT THIS TIME. CALL LIGHT IN REACH.
--- NOTE | 2019-09-04 00:18 | NUR ---
PT RESTING IN BED WITH EYES CLOSED. RESPIRATIONS EVEN AND UNLABORED. PT APPEARS TO BE SLEEPING. DOES NOT WAKE WHILE FIXED ROUTE BUS OPERATOR AT DOORWAY. CALL LIGHT IN REACH.
--- NOTE | 2019-09-04 01:52 | NUR ---
PT RESTING IN BED WITH EYES CLOSED. RESPIRATIONS EVEN AND UNLABORED. PT SNORING AUDIBLY FROM DOORWAY. DOES NOT WAKE WHILE SENIOR LABORATORY TECHNICIAN AT DOORWAY. CALL LIGHT IN REACH. BED ALARM ACTIVE.
--- NOTE | 2019-09-04 03:18 | NUR ---
PT RESTING IN BED WITH EYES CLOSED. RESPIRATIONS EVEN AND UNLABORED. APPEARS TO BE SLEEPING. CALL LIGHT IN REACH.
--- NOTE | 2019-09-04 06:14 | NUR ---
CAGE CLERK TO ROOM FOR BED ALARM SOUNDING. PT SITTING AT EDGE OF BED, STATES SHE NEEDS TO USE THE BATHROOM. PT ASSISTED TO BATHROOM. ATTENDS ARE WET. PT ASSISTED TO CLEAN UP AND NEW ATTENDS PLACED. PT WALKED BACK TO BED WITH 1 PA. PT SLIGHTLY ONSTEADY. PT ASSESSMENT COMPLETE PT DENIES PAIN, NAUSEA, OR SOB. PT HAVING COUGH THROUGHOUT ASSESSMENT, REPORTS SOME SPUTUM PRODUCTION ALTHOUGH DOES NOT SPIT OUT WHEN PROMPTED. SA02 88% AFTER RETURNING FROM THE BATHROOM, INCREASED TO 93% AT REST ON RA. LUNG SOUNDS NOT AUSCULTATED DUE TO PPE. PT DECLINES TO SIT UP IN THE CHAIR AT THIS TIME. WOULD LIKE TO RETURN TO BED. BED ALARM REPLACED. PT DENIES FURTHER NEEDS. CALL LIGHT IN REACH.
--- NOTE | 2019-09-04 07:30 | NUR ---
REPORT RECEIVED FROM RN'S. PT APPEARS TO BE RESTING COMFORTABLY WITH EYES CLOSED. CURTAINS OPEN. CALL LIGHT IN REACH.
--- NOTE | 2019-09-04 09:44 | NUR ---
PT UP TO RESTROOM WITH ASSISTANCE. VERY WEAK AND DROWSY THIS MORNING. SMALL SOFT STOOL AND URINE. MOVED TO CHAIR FOR BREAKFAST. DECLINED BED BATH RIGHT NOW. CALL LIGHT IN REACH. VS STABLE. IV FLUSHED, SL.
--- NOTE | 2019-09-04 10:32 | NUR ---
PT REMAINS SITTING UP IN CHAIR SLEEPING. RR 16.
--- NOTE | 2019-09-04 11:52 | NUR ---
PT STILL SLEEPING IN CHAIR. HAS REPOSITIONED HERSELF AND APPEARS COMFORTABLE. RR 18.
--- NOTE | 2019-09-04 13:32 | NUR ---
PT SLEEPING IN CHAIR BUT EASILY AWOKEN. UP TO RESTROOM FOR VOID AND SMEAR OF BM. VS STABLE, AFEBRILE. PT COUGHED QUITE A BIT WHILE AMBULATING. BRUSHED TEETH AND WASHED HAIR WITH SHOWER CAP. PT PERKED UP WHEN TOLD SHE COULD GO SEE HER THIS AFTERNOON.
--- NOTE | 2019-09-04 15:25 | NUR ---
SPOKE BY PHONE WITH SON RODOLFO [phone] AND ANSWERED QUESTIONS REGARDING PATIENTS VS AND HOW SHE WAS DOING. DISCUSSED THAT SHE HAS HAD LOW GRADE FEVERS WITH TYLENOL. DISCUSSED SHE IS NOT REQUIRING OXYGEN, BUT THAT NURSES NOTES REFLECT SHE WAS LESS STEADY ON FEET OVER WEEKEND. DISCUSSED THAT WHEN SHE IS READY FOR DISCHARGE WE WILL ASK FOR A COVID TEST TO SEE IF SHE STILL TESTS POSITIVE SO HE WILL KNOW IF HE WOULD BE RE-EXPOSED IF HE TOOK CARE OF HER. HE STATES HE HAS BEEN CALLED DAILY BY THE HEALTH DEPARTMENT WHO ARE TRACKING HIS TEMPERATURES. HE STATES HE TESTED NEGATIVE AND HAS HAD NO SYMPTOMS YET. HE IS HOPING TO RETURN TO WORK SOON. DISCUSSED THAT IF SHE IS POSITIVE AND HAS NO ACUTE NEED ANY LONGER, THEY MAY A FAMILY HAVE TO PICK A PERSON TO GO HOME WITH HER AND QUARANTINE WITH PATIENT. HE STATES UNDERSTANDING. QUESTIONS ANSWERED. CM WILL CONTINUE TO FOLLOW.
--- NOTE | 2019-09-04 16:14 | NUR ---
WHEELED PT DOWN TO HUSBANDS ROOM FOR A VISIT WITH MASK ON. PT SAT IN ROOM FOR A LITTLE OVER AN HOUR THEN CALLED TO GO BACK TO BED WITH WARM BLANKETS SHE WAS COLD. VS STABLE, AFEBRILE.
--- NOTE | 2019-09-04 16:34 | NUR ---
PT ASLEEP IN BED. WARM BLANKETS IN PLACE. RR 20
--- NOTE | 2019-09-04 17:33 | NUR ---
PT WOKEN FOR DINNER AND ASSISTED TO SIT UPRIGHT IN BED. DECLINED GETTING INTO CHAIR. PT ENCOURAGED TO EAT A FEW BITES OR DRINK THE ENSURE. DENIES PAIN OR SOB.
--- NOTE | 2019-09-04 18:46 | NUR ---
LISTENED TO LUNG SOUNDS. CLEAR AND DIM IN ALL SCHWARTZ. PT BACK IN CHAIR AFTER USING RESTROOM. SMALL BM AND VOID.
--- NOTE | 2019-09-04 21:00 | NUR ---
SHIFT REPORT RECEIVED FROM JULIAN PUENTE. ASSESSMENT COMPLETED AT THIS TIME. PT IS DROWSY, WAKES TO VOICE. CONFUSED TO DATE AND EVENT BUT KNOWS SHE IS IN THE HOSPITAL. FOLLOWS COMMANDS. DENIES PAIN. LOW GRADE TEMP OF 99.5, PRN TYLENOL GIVEN. LUNGS CLEAR/DIM, RA. HR REGULAR. BOWEL TONES ACTIVE. SKIN GROSSLY INTACT. IV SITE INTACT AND PATENT. PT DENIES NEED TO USE THE BATHROOM AT THIS TIME, ATTENDS IN PLACE AND DRY. PT SITTING UP IN CHAIR, DECLINES WANTING TO MOVE TO THE BED AT THIS TIME. CALL LIGHT WITHIN REACH, REMINDED PT TO NOT GET UP WITHOUT ASSISTANCE. WILL CONTINUE TO MONITOR.
--- NOTE | 2019-09-04 23:19 | NUR ---
PT SLEEPING IN CHAIR, AWOKE HER TO RECHECK TEMP, 98.8 ORALLY AT THIS TIME. WITH ENCOURAGEMENT, PT AMBULATED TO BATHROOM, VOIDED AND THEN RETURNED TO BED. PT SOMEWHAT UNSTEADY ON FEET, 1-PA. BED ALARM SET FOR SAFETY. PT DENIES REQUESTS, CALL LIGHT WITHIN REACH.
--- NOTE | 2019-09-05 02:04 | NUR ---
PT SLEEPING SOUNDLY, NO APPARENT DISTRESS. RESPIRATIONS EVEN AND UNLABORED, RR: 18. WILL ALLOW FOR REST AND CONTINUE TO MONITOR.
--- NOTE | 2019-09-05 04:00 | NUR ---
PT CONTINUES TO SLEEP SOUNDLY, NO APPARENT DISTRESS. RESPIRATIONS EVEN AND UNLABORED, RR: 20. WILL ALLOW FOR REST AND CONTINUE TO MONITOR.
--- NOTE | 2019-09-05 06:00 | NUR ---
PT AWAKENED FOR MORNING MEDS WHICH SHE TOOK WITHOUT DIFFICULTY. UP TO BATHROOM WITH 1-PA, VOIDED AND RETURNED TO BED. PT DENIES FURTHER REQUESTS. VITAL SIGNS STABLE. BED ALARM ON FOR SAFETY.
--- NOTE | 2019-09-05 08:26 | NUR ---
IN ROOM TO SEE PATIENT. PATIENT UP TO BATHROOM WITH A STANDBY ASSIST. ASSESSMENT AND VITALS DONE.
--- NOTE | 2019-09-05 08:43 | NUR ---
PATIENT UP TO BATHROOM AND VOIDS AND HAS LIQUID GREEN BM. BACK TO BED. PT DENIES BEING HUNGRY BUT AGREES TO TRY AND EAT OATMEAL AND NUTRITIONAL DRINK. SP02 IS 90% ON ROOM AIR. RR LOW TO MID 20s, SLIGHTLY LABORED. PT DENIES EXPECTORATION OF COUGH. CONTINUE TO MONITOR. BED ALARM ON FOR SAFETY.
--- NOTE | 2019-09-05 09:10 | NUR ---
BACK INTO PATIENT'S ROOM TO GIVE AM MEDS AND DELIVER BREAKFAST TRAY. PT EATING HER OATMEAL WELL. PT INSTRUCTED TO USE CALL LIGHT AND NOT TO GET UP ON HER OWN. CONTINUE TO MONITOR CLOSELY.
--- NOTE | 2019-09-05 12:05 | NUR ---
IN PATIENT'S ROOM FOR NOOON ASSESSMENT AND VITALS. LUNCH ORDERED FOR PATIENT. WILL ATTEMPT NEW IV SITE. PT VERY TIRED AND STATES OVERALL JUST NOT FEELING WELL. PT STATES NO FOOD REALLY SOUNDS GOOD EITHER.
--- NOTE | 2019-09-05 12:28 | NUR ---
PATIENT UP TO BATHROOM TO VOID AND HAD SMALL LIQUID GREEN BM AGAIN. PT NOW IN CHAIR AND EATING LUNCH. PT ASKS, "FOR ABOUT HOW MUCH LONGER DO WE HAVE TO BE HERE?" EXPLAINED TO PATIENT THAT IT COULD STILL BE SEVERAL MORE DAYS. OXYGEN LOW AFTER AMBULATION, DOWN TO 85-87% WHLE SITTING IN CHAIR. 2 L NASAL CANNULA APPLIED TO PATIENT. NEW IV SITE IN RIGHT ARM STARTED AND OLD IV D/C. PT NOW EATING MASHED POTATOES AND GRAVY.
--- NOTE | 2019-09-05 13:20 | NUR ---
PATIENT USES CALL LIGHT AND STATES SHE NEEDS TO GO TO THE BATHROOM. 1PA TO BATHROOM. ABLE TO LISTEN TO LUNGS AT THIS TIME AND FINE CRACKLES APPRECIATED THAT CLEARED WITH DEEP BREATHS. MD UPDATED THAT PATIENT IS NOW REQUIRING OXYGEN. PT STATES SHE WOULD LIKE TO REST IN BED AFTER THIS. PT ATE APPROX 50% OF HER LUNCH.
--- NOTE | 2019-09-05 13:23 | NUR ---
NEW ORDERS FOR LABS FOR THIS PATIENT AND A CHEST XRAY. WILL ATTEMPT TO PULL LABS OFF OF NEW IV STARTED THIS AM.
--- NOTE | 2019-09-05 13:37 | NUR ---
CXR DONE AND BLOOD DRAWN FOR LAB FROM NEW STARTED IV SITE RIGHT AC. PT IN BED RESTING. CALL LIGHT WITHIN REACH AND BED ALARM ON FOR SAFETY.
--- NOTE | 2019-09-05 14:18 | NUR ---
AMBULATED TO BR TO EXPELL LIQUID GREENISH STOOL. THEN TO CHAIR. STATES SHE FEELS TIRED. O2 SAT 93 ON 2 LITERS.
--- NOTE | 2019-09-05 14:52 | NUR ---
PATIENT'S SON SCOT CALLED AND GIVEN UPDATE ON HIS MOTHER. PATIENT ABLE TO TALK WITH HIM ON THE PHONE. PT IN CHAIR AFTER USING THE RESTROOM. CONTINUE TO MONITOR.
--- NOTE | 2019-09-05 15:58 | NUR ---
PATIENT RESTING IN CHAIR AT THIS TIME. SP02 IS 96% ON 2 L NC. PT APPEARS COMFROTABLE.
--- NOTE | 2019-09-05 16:20 | NUR ---
Checked with Nurses, pt is sitting in recliner. Returned to my office and attempted to call pt for update, does not answer her cell phone. Per Rn's pt has had fevers and cont. with cough.
--- NOTE | 2019-09-05 16:43 | NUR ---
PATIENT DENIES WANTING DINNER, AND STATES SHE JUST WANTS TO GO TO BED AT THIS TIME. PT'S TEMP 99.1 AT THIS TIME AND AGREES TO TAKE SOME TYLENOL. WILL CONTINUE TO MONITOR. SP02 97% ON 2 L, SO OXYGEN TURNED DOWN TO 1 L. WILL MONITOR.
--- NOTE | 2019-09-05 18:11 | NUR ---
DR. KABA UPDATED ON PATIENT'S CONDITION INCLUDING NEED FOR OXYGEN TODAY, INCREASED LETHARGY, DECREASED URINE OUTPUT. ORDERS REC'D FOR PO POTASSIUM, IV REMDESIVIR, AND A FLUID BOLUS OF 500 ML OVER 1 HR, FOLLOWED BY IV FLUIDS AT 100 ML/HR OVER 5 HRS. PT ABLE TO SIGN CONSENT FORM FOR IV REMDESIVIR MEDICATION. DR. KABA ALSO SPOKE WITH PATIENT'S SON BROOKE ABOUT PATIENT RECEIVING THIS IV MEDICATION FOR HER COVID-19 VIRUS.
--- NOTE | 2019-09-05 18:15 | NUR ---
PATIENT HAVING NAUSEA SHORTLY AFTER REMDESIVIR STARTED. PRN ZOFRAN TO BE GIVEN.
--- NOTE | 2019-09-05 18:21 | NUR ---
PATIENT VOMITED [address] ORANGISH [address] KABA NOTIFIED. ORDER REC'D TO SLOW IV INFUSION OF REMDESIVIR DOWN TO GO OVER 2 HOURS. NO SIGNS OF SKIN REACTION NOTED AROUND IV SITE. PATIENT STATES, " I THINK IT WAS THOSE LITTLE ROUND YELLOW PILLS THAT MADE MY TUMMY UPSET." PATIENT WAS JSUT GIVEN 40 MEQ OF POTASSIUM PO. COLD WASH CLOTH PROVIDED FOR BACK OF PATIENT'S NECK.
--- NOTE | 2019-09-05 20:54 | NUR ---
SHIFT REPORT RECEIVED FROM JULIAN LEWIS. ASSESSMENT COMPLETED. PT IS ALERT/ORIENTED, MUCH MORE INTERACTIVE THAN THE PREVIOUS NIGHT. SHE DENIES PAIN. LUNGS ARE CLEAR, DIM IN BASES, RA. HR REGULAR. BOWEL TONES ACTIVE, DENIES NAUSEA. SKIN GROSSLY INTACT, NO EDEMA NOTED. PT PERFORMED I.S. WITH ENCOURAGEMENT. PT UP TO BATHROOM WITH 1-PA, VOIDED AND HAD LIQUID BM. PERICARE AND NEW ATTENDS PROVIDED. IV PATENT, IVF INFUSING WNL. EVENING MEDICATIONS GIVEN WITHOUT ISSUE. WARM BLANKETS PROVIDED. BED ALARM ON FOR SAFETY. NO FURTHER REQUESTS, CALL LIGHT WITHIN REACH.
--- NOTE | 2019-09-05 21:34 | NUR ---
IN TO START SECOND BAG OF POTASSIUM. PT UP TO BSC WITH 1-PA. VOIDED 100ML AND HAD MEDIUM AMOUNT OF BROWN SEMIT LIQUID STOOL. PERICARE AND NEW ATTENDS PROVIDED. RETURNED TO BED, ALARM SET FOR SAFETY. CALL LIGHT WITHIN REACH.
--- NOTE | 2019-09-05 22:05 | NUR ---
PT CALLED, UP TO BSC WITH 1-PA. VOIDED 100ML. PERICARE PROVIDED AND PT RETURNED TO BED. BED ALARM SET FOR SAFETY. CALL LIGHT WITHIN REACH.
--- NOTE | 2019-09-05 22:41 | NUR ---
IN TO HANG LAST BAG OF POTASSIUM. PT RESTING WITH EYES CLOSED, NO APPARENT DISTRESS. RESPIRATIONS EVEN AND UNLABORED, RR:24, HR:66, SPO2:96% ON RA. BED ALARM REMAINS ON FOR SAFETY. WILL ALLOW FOR REST AND CONTINUE TO MONITOR.
--- NOTE | 2019-09-06 00:06 | NUR ---
PT SLEEPING SOUNDLY AT THIS TIME, NO APPARENT DISTRESS. RESPIRATIONS EVEN AND UNLABORED, RR:22 HR:63, SPO2:98% ON RA. WILL ALLOW FOR REST AND CONTINUE TO MONITOR.
--- NOTE | 2019-09-06 02:49 | NUR ---
ASSESSMENT COMPLETED. PT AWAKE AT THIS TIME AND NEEDING TO USE THE BATHROOM. UP TO BSC WITH SBA, VOIDED 400ML AND HAD SMALL LOOSE BM. PERICARE, BARRIER CREAM, AND NEW ATTENDS PROVIDED AND PT RETURNED TO BED. PT DENIES PAIN. LUNGS REMAIN CLEAR, DIM IN BASES. 1L NC PLACED ON PT DUE TO SATURATIONS 88-90% AFTER ACTIVITY, SATS NOW 93-94%. HR REMAINS REGULAR. REMAINDER OF ASSESSMENT UNCHANGED. IV REMAINS INTACT, FLUIDS INFUSING WNL. PT DENIES FURTHER REQUESTS, CALL LIGHT WITHIN REACH. BED ALARM ON FOR SAFETY.
--- NOTE | 2019-09-06 06:15 | NUR ---
IT TO DRAW MORNING LABS AND GIVE MORNING MEDS. PT UP TO BSC WITH SBA, VOIDED AND RETURNED TO BED. PT DENIES FURTHER NEEDS, BED ALARM RESET FOR SAFETY.
--- NOTE | 2019-09-06 09:03 | NUR ---
IN PATIENT'S ROOM FOR ASSESSMENT AND VITALS. PATIENT UP TO CHAIR FOR BREAKFAST. PT MORE CONVERSIVE AND INTERACTIVE SO FAR THIS AM COMPARED TO YESTERDAY.
--- NOTE | 2019-09-06 09:22 | NUR ---
PATIENT ENDORSES HOW TIRED SHE IS THIS MORNING. PATIENT ASKED IF SHE RECALLS WHY SHE AND HER ARE IN THE HOSPITAL, AND SHE ANSWERS APPROPRIATELY. PATIENT THEN STATES, "I DON'T THINK WE ARE GOING TO MAKE IT. I'M JUST SO TIRED." PATIENT ENCOURAGED TO PLEASE ASK NURSING STAFF FOR WHATEVER SHE NEEDS. PATIENT STATES SHE WOULD REALLY LIKE TO BE ABLE TO TAKE A SHOWER. WILL COORDINATE WITH TITLE CLERK AUTOMOBILE TO TRY AND LET PATIENT SHOWER IN ANOTHER ROOM WITH SHOWER. PT STATES SHE WANTS TO SEE HER TODAY BUT NOT UNTIL AFTER SHE "CLEANS UP." OFFERED BED BATH TO PATIENT AND SHE STATES, "I DON'T NEED A BATH, I NEED A SHOWER AND A SHAMPOO." PATIENT SITTING IN CHAIR ATTEMPTING TO EAT BREAKFAST. PT REMAINS ON 1 L NC. CALL LIGHT GONE OVER WITH PATIENT AND PATIENT AGREEABLE TO CALL WHEN SHE NEEDS ANYTHING.
--- NOTE | 2019-09-06 09:27 | NUR ---
UP TO BSC TO VOID WHILE THIS RN STILL IN ROOM.
--- NOTE | 2019-09-06 11:03 | NUR ---
DR. KABA IN ROOM TO SEE PATIENT AT THIS TIME. PATIENT REMAINS ON 1 L NC AND SP02 IS 97%. PATIENT STATES TO DR. KABA THAT SHE IS JUST FATIGUED. WILL CONTINUE TO MONITOR.
--- NOTE | 2019-09-06 12:50 | NUR ---
PATIENT REMAINS IN CHAIR AND NOW EATING LUNCH. UP TO BSC TO VOID. IVF STARTED AT 50 ML/HR, BUT PATIENT WILL NEED NEW IV SINCE SHE KEEPS BENDING AC IV SITE. PT EATING HER MASHED POTATOES AT THIS TIME. ASSESSMENT OCMPLETE.
--- NOTE | 2019-09-06 13:45 | NUR ---
JULIAN LEWIS IN WITH PT, WILL FOLLOW
--- NOTE | 2019-09-06 14:27 | NUR ---
IN PATIENT'S ROOM FOR HER BATH AND FOR NEW IV START. PATIENT HAD GOTTEN HERSELF FROM CHAIR TO BED BY HERSELF WITHOUT CALLING. PT REMINDED TO USE CALL LIGHT BEFORE GETTING UP ON HER OWN. PT HAD INCONTINENCE IN ATTENDS OF LIQUID STOOL.
--- NOTE | 2019-09-06 15:01 | NUR ---
PATIENT GIVEN BED BATH AND SHAMPOO, TOLERATED WELL. NEW IV STARTED IN RIGHT INNER FOREARM. IVF AT 50 ML/HR. PT TURNED TO ROOM AIR TRIAL TO SEE IF SHE TOLERATES. PT STILL HAVING COUGHING, NON PRODUCTIVE. BED ALARM ON FOR SAFETY.
--- NOTE | 2019-09-06 15:40 | NUR ---
Update from Rn. Pt. continues to not feel well.
--- NOTE | 2019-09-06 18:01 | NUR ---
IN PATIENT'S ROOM FOR MEDS AND ASSESSMENT, VITALS. PATIENT UP TO BSC TO VOID, AND HAD SMALL LIQUID BM. PATIENT THEN TAKEN INTO PATIENT'S 'S ROOM IN [facility] FOR DINNER. PATIENT AND HER CONVERSING AND EATING THEIR DINNER TOGETHER.
--- NOTE | 2019-09-06 18:54 | NUR ---
PATIENT WANTING TO GO BACK TO HER ROOM SHE STARTED TO NOT FEEL SO WELL AFTER DINNER. PT ATE ONLY A COUPLE BITES OF HER DINNER. PT THEN HAD A COUPLE BOUTS OF EMESIS. ZOFRAN 4 MG GIVEN. PT BACK IN HER ROOM NOW. SP02 IS 92% ON ROOM AIR.
--- NOTE | 2019-09-06 20:10 | NUR ---
SHIFT REPORT RECEIVED FROM JULIAN LEWIS. ASSESSMENT COMPLETED AT THIS TIME. PT IS DROWSY, BUT ORIENTED. DENIES PAIN. LUNGS CLEAR EXCEPT FOR FINE CRACKLES IN LEFT BASE. 1L O2 APPLIED AFTER PT TRANSFERRED TO BED DUE TO DESATS TO 87-88%. HR REGULAR. BOWEL TONES ACTIVE, PT RECOVERING FROM FEELING NAUSEATED AFTER DINNER. SKIN GROSSLY INTACT, NO EDEMA NOTED. IV SITES INTACT AND PATENT, REMDESIVIR INFUSION COMPLETED AND IVF INFUSING WNL. PT DENIES REQUESTS, CALL LIGHT WITHIN REACH AND BED ALARM SET FOR SAFETY. TEMP 99.0, WILL CONTINUE TO MONITOR.
--- NOTE | 2019-09-06 22:00 | NUR ---
EVENING MEDICATIONS GIVEN WITHOUT ISSUE. PT UP TO BSC TO VOID, PERICARE AND NEW ATTENDS PROVIDED. RETURNED TO BED. DENIES FURTHER REQUESTS, CALL LIGHT WITHIN REACH AND BED ALARM SET.
--- NOTE | 2019-09-07 00:53 | NUR ---
PT SLEEPING SOUNDLY AT THIS TIME, NO APPARENT DISTRESS. RESPIRATIONS EVEN AND UNLABORED, HR:66, R:24, SPO2:100% ON 1L NC. BED ALARM REMAINS IN PLACE. WILL ALLOW FOR REST AND CONTINUE TO MONITOR.
--- NOTE | 2019-09-07 03:45 | NUR ---
ASSESSMENT COMPLETED. PT MORE ALERT AND INTERACTIVE, REMAINS ORIENTED AND DENIES PAIN. LUNGS REMAIN CLEAR EXCEPT FOR FINE CRACKLES IN LEFT BASE, I.S. AND ACAPELLA DONE WITH ENCOURAGEMENT. REMAINDER OF ASSESSMENT UNCHANGED. PT UP TO BSC WITH 1-PA TO VOID, PERICARE PROVIDED AND PT RETURNED TO BED. IVF INFUSING WNL, SITES INTACT. NO FURTHER REQUESTS AT THIS TIME, CALL LIGHT WITHIN REACH AND BED ALARM ON FOR SAFETY.
--- NOTE | 2019-09-07 05:45 | NUR ---
MORNING MEDS GIVEN AND LABS DRAWN. FRESH ICE WATER PROVIDED. PT DENIES REQUESTS, DENIES NEED TO USE THE BATHROOM AT THIS TIME. CALL LIGHT WITHIN REACH, BED ALARM REMAINS IN PLACE.
--- NOTE | 2019-09-07 08:15 | NUR ---
Received update from nurses. Pt was able to spend time with spouse last night. Did not tolerated well and had vomiting. Now using 02.
--- NOTE | 2019-09-07 09:41 | NUR ---
MORNING ASSESSMENT DUE. PT CALL LIGHT ON. PT REQUESTS ASSISTANCE UP TO RESTROOM. 1PA UP TO BEDSIDE COMDE. SOFT BOWEL MOVEMENT AND VOID NOTED. ADAM CARE DONE. FRESH ATTENDS IN PLACE. BARRIER CREAM APPLIED. 1PA UP TO CHAIR. MD TO BEDSIDE FOR ROUNDS. ROOM AIR TRIAL ATTEMPTED. PT DROPS TO 88 ON ROOM AIR. PT REMAINS ON 2L O2 BY NC AT THIS TIME. LUNG SOUNDS PER MD. PT DEMONSTRATES NEW CONFUSION/DISORIENTATION TO PLACE, DATE/TIME, AND SITUATION. PT REPORTS "I DON'T FEEL WELL." LETHERAGY NOTED. PT DECLINES BREAKFAST BUT IS TAKING SIPS OF COFFEE. MEDICATIONS GIVEN. I.S. USE DEMONSTRATED REACHING 500ML. PT REMAINS UP TO CHAIR. NO ADDITIONAL REQUESTS OR COMPLAINTS AT THIS TIME. CALL LIGHT WITHIN REACH.
--- NOTE | 2019-09-07 09:57 | NUR ---
PT STATES "I DONT' FEEL GOOD." TYLENOL OFFERED, PT STATES "YES, PLEASE." SEE MAR FOR MEDICATION GIVEN. NO ADDITIONAL REQUESTS OR COMPLAINTS. CALL LIGHT WITHIN REACH.
--- NOTE | 2019-09-07 10:33 | NUR ---
PT CALL LIGHT ON. PT REPORTS FEELING COLD. WARM BLANKETS PROVIDED. ROOM TEMPERATURE INCREASED. OFFER GIVEN TO PT TO GO AND VISIT WITH DOWN THE R[place]RIGUEZ. PT DECLINES AT THIS TIME STATING "I JUST DON'T FEEL GOOD." PT RESTING IN CHAIR. NO ADDITIONAL REQUESTS OR COMPLAINTS. CALL LIGHT WITHIN REACH.
--- NOTE | 2019-09-07 11:20 | NUR ---
PT CALL LIGHT ON. PT REQUESTS ASSITANCE UP TO VOID. 1PA UP TO BEDSIDE COMODE, VOIDS WITHOUT ISSUE. ADAM CARE DONE. FRESH ATTENDS IN PLACE. PT REQEUSTS TO VISIT WITH DOWN THE RODRIGUEZ. MASK APPLIED. IV SALINE LOCKED FOR VISTATION. PT REMAINS ON 2L O2 BY PORTABLE OXYGEN TANK WITH O2 SATURATIONS 91-95%. PT TRANSFERED TO ROOM BY CHAIR. VISITING WITH . NO ADDITIONAL REQUESTS OR COMPLAINTS. CALL LIGHT WITHIN REACH.
--- NOTE | 2019-09-07 12:25 | NUR ---
PT TAKEN BACK TO ROOM VIA CHAIR FROM HER 'S ROOM. PT ONE PERSON STANDBY ASSIST UP TO THE BATHROOM TO VOID. PT THEN ABLE TO WASH HANDS WITH ASSISTANCE. PT STANDBY ASSIST TO AMBULATE BACK TO BED, AND TUCKED IN. PT SERVED LUNCH IN BED. CALL LIGHT IS WITHIN REACH. PT VITALS ARE WNL. IV SITES ARE INTACT, NO REDNESS OR SWELLING NOTED, FLUIDS AND FLUSHES INFUSE EASILY. PT DENIES PAIN, NAUSEA, AND SOB, HOWEVER REPORTS CONCERN/SORROW ABOUT 'S TRANSITION TO COMFORT CARE.
--- NOTE | 2019-09-07 13:00 | NUR ---
THIS RN TO ROOM TO CHECK ON PT. PT NIBBLING ON LUNCH, DENIES REQUESTS OR COMPLAINTS, CALL LIGHT WITHIN REACH. BED RAILS UP.
--- NOTE | 2019-09-07 14:06 | NUR ---
THIS RN TO ROOM TO CHECK ON PT. PT STATES SHE NEEDS TO USE RESTROOM. 1PA, UP TO BEDSIDE COMODE. PT VOIDS SMALL AMOUNT AND HAS SMALL LOOSE BOWEL MOVMENT. ADAM CARE DONE, ATTENDS CHANGED. PT REPORTS [place]. SEE MAR FOR MEDICATION GIVEN. 1PA BACK TO BED. PT REMAINS ON 2L O2 BY NC WITH O2 SATURATION AT 95%. NO ADDITIOANL REQUESTS OR COMPLAINTS AT THIS TIME. CALL LIGHT WITHIN REACH.
--- NOTE | 2019-09-07 14:16 | NUR ---
PTS SISTER RICARDO, CALLED TO TALK WITH PT. PT DECLINES TELEPHONE CALL BUT STATE "YOU CAN UPDATED HER. " PTS SISTER RICARDO UPDATED BY JULIAN MOREIRA. STATES HER QUESTIONS HAVE BEEN ANSWERED.
--- NOTE | 2019-09-07 15:40 | NUR ---
PT CALL LIGHT ON. PT REQUESTS ASSISTANCE UP TO RESTROOM. 1 PERSON ASSESSIT UP TO COMODE. PT VOIDS 350ML WITHOUT ISSUE. SMALL SMEAR BM NOTED. ADAM CARE DONE. ATTENDS CHANGED. 1 PERSON ASSIST BACK TO BED. WARM BLANKETS PROVIDED. REMDESIVIR INFUSION AND FLUSH COMPLETE. IV SALINE LOCKED. ALCOHOL CAPS APPLIED. BED RAILS UP. CALL LIGHT WITHIN REACH.
--- NOTE | 2019-09-07 15:56 | NUR ---
PT CALL LIGHT ON. AFTERNOON ASSESSMENT DUE. PT REQUESTS ASSISTANCE UP TO COMODE. 1PERSON ASSIST UP TO COMODE, PT VOIDS WITHOUT ISSUE. 1 PERSON ASSIST BACK TO BED. ASSESSMENT DONE. PT DENIES PAIN AND NAUSEA. LUNG SOUNDS ASCULATED WITH RESPIRATORY THERAPIST THROUGH CELLPHONE ADAPTOR. CRACKELS NOTED IN LOWER LOBES. PT REMAINS ABOUVE 95% ON 2L O2 BY NC. PT WEANTED TO 1L O2 BY NC WITH O2 SATURATION OF 95-96%. VITALS TAKEN, WNL, RR=28. DRY COUGH CONTINUES. PT ORIENTED TO HOSPITAL, SELF, AND YEAR. DISORIENTED TO DATE, AND TOWN. PT DEMONSTRATES USE OF I.S. REACHING 750ML. WARM BLANKETS PROVIDED. NO ADDITIONAL REQUESTS OR COMPLAINTS. CALL LIGHT WITHIN REACH. BED RAILS UP. DINNER ORDER PLACED.
--- NOTE | 2019-09-07 17:00 | NUR ---
PUMP ALARMING, DISTAL OCCLUSION. IV ASSESSED, WNL. ARM STRAIGHTENED. INFUION RESTARTED. REMDESIVIR DUE. STARTED IN 2ND PRIMARY LINE WITH NORMAL SALINE. PT TALKING ON PHONE TO FRIEND. DINNER ARRIVED. 1PA UP TO CHAIR FOR DINNER. PT TOLERATING 1L O2 BY NC WITH O2 SATURATION OF 98%. PT WEANED TO ROOM AIR. I.S. USE DEMONSTRATED. PT REACHES 750ML. O2 SATURATIONS REMAIN ABOVE 92% ON ROOM AIR. CALL LIGHT WITHIN REACH.
--- NOTE | 2019-09-07 17:23 | NUR ---
PT HERE FOR COVID RELATED PNEUMONIA. 1 PERSON ASSIST UP TO BEDSIDE COMODE AND CHAIR THIS SHIFT. PT TOLERATING REGULAR DIET WITH GOOD MINIMAL APPITTIE. APPITITE IMPROVING THIS AFTERNOON. PT ON 2L O2 BY NC THIS MORNING AND WEANED TO ROOM AIR THIS AFTERNOON. REACHING 750ML ON I.S. AND MAINTAINING O2 SATURATIONS ABOVE 92%. CRACKELS NOTED IN LOWER LOBES OF LUNGS USING WIRELESS STETHASCOPE TRANSMITTED TO CELLClearFlowR PHONE. IV FLUIDS INCREASED THIS SHIFT TO 75ML/HR. PRN ZOFRAN GIVEN X2. DIARRHEA X3 THIS SHIFT. REMDISIVIR GIVEN. PT AFEBRIAL. TYLENOL GIVEN X1 FOR GENERAL ACHES AND PAINS. PT TO HUSBANDS ROOM THIS SHIFT, SADDENED BY HUSBANDS TRANSITION TO COMFORT CARE, THERAPUTIC COMMUNICATION PERFORMED. PT VOIDING QUANTITY SUFFICIENT. PT USES CALL LIGHT APPROPRIATLY.
--- NOTE | 2019-09-07 18:00 | NUR ---
PT INFORMED OF HUSBANDS PASSING PER MD VERBAL ORDER. PTS QUESITONS ANSWERED. THIS RN SAT WITH PT FOR 15 MINUTES. PT ASKED IF SHE WOULD LIKE TO TALK WITH HER CHILDREN. PT STATES "NOT YET" REQUESTS SOME TIME ALONE. PT RESTING IN BED AND STATES SHE IS COMFORTABLE. PT REPORTS GRATITUDE FOR THE CARE SHE AND HER HAVE BEEN GIVEN. PT STATES "THATS WHAT I WANT TOO, TO GO IN MY SLEEP." PT GIVEN TIME ALONE. BED RAILS UP. CALL LIGHT WITHIN REACH.
--- NOTE | 2019-09-07 18:29 | NUR ---
PT ASKED IF SHE WOULD LIKE TO TALK TO THE VARNISHING UNIT OPERATOR. PT DECLINES BUT STATES SHE WOULD LIKE TO TALK TO RODOLFO, HER SON. CALL MADE TO RODOLFO, NO ANSWER AT THIS TIME. WILL TRY AGAIN.
--- NOTE | 2019-09-07 19:15 | NUR ---
SHIFT REPORT RECIEVED FROM YOEL JORDAN. PT RESTING IN BED. SPO2 92% ON RA, PULSE 81. NO NNEDS AT THIS TIME. CALL LIGHT IN REACH.
--- NOTE | 2019-09-07 19:34 | NUR ---
Offered to talk with pt after (also in CCU) . PT declined pastoral care. While I was in the unit, I observed RN's transfer calls to pt room. It appears pt has supportive family relationship.
--- NOTE | 2019-09-07 20:30 | NUR ---
PT WAKES WHEN RN ENTERS ROOM. PT APPEARS WITHDRAWN, INITIALLY ONLY ANSWERING IN ONE WORD SENTENCES. ASSESSMENT, VS AND I&O COMPLETED. IVs WNL, FLUSHED WELL. SPO2 92% ON RA. PT DENIES PAIN. BOWEL TONES ACTIVE. LUNGS CLEAR IN UPPER LOBES AND DIMINISHED IN LOWER LOBES. PT HAS OCCASSIONAL COUGH WITH SCANT SPUTUM. TEMP 99.3f, FEVER MED PROVIDED. PT STATES "I WISH I COULD HAVE WITH TITUS" BUT THEN ALSO STATES "I WANT TO GET BETTER AND GET OUT OF HERE." WATER PROVIDED. NO OTHER NEEDS. CALL LIGHT IN REACH.
--- NOTE | 2019-09-07 21:29 | NUR ---
Report received from JULIAN Lane. Orders acknowledged. Patient laying in bed, SpO2 of 92% on RA. Call light within reach.
--- NOTE | 2019-09-07 22:14 | NUR ---
Patient laying in bed with eyes closed. Patient rouses to voice. This RN and patient talk about Jeffry. Patient states "He was a sweet man." Splint placed on right arm to keep IV site patent. Fluids running at 75 mls/hr. Patient reports fatigue and would like to sleep. Call light within reach.
--- NOTE | 2019-09-08 02:15 | NUR ---
reponded to pts IV pump beeping. Pt sitting up at side of bed, stated she needed to urinate but could not get to the bathroom soon enough. Pt had incontinent episode in depends and urinated in the trash can next to the bed. Pt also pulled out both IV's in right arm. Reoriented patient, assisted with maik care and repositioning in bed. BSC placed at bedside. New IV inserted. IV fluid infusing, warm blankets provided and call light within reach.
--- NOTE | 2019-09-08 03:15 | NUR ---
Patient sleeping in bed, respirations even and unlabored. SpO2 of 91% on RA. Call light within reach.
--- NOTE | 2019-09-08 06:30 | NUR ---
Patient laying in bed, awake. Patient states "I want to go home today to start planning Jeffry's ." Cold cloth given for patient to wash face. Patient up to chair with 1PA. SpO2 of 94% on RA. AM medication given. Patient denies needs for anything further, call light within reach.
--- NOTE | 2019-09-08 07:52 | NUR ---
PT SLEEPING SOUNDLY IN BED AT THIS TIME. O2 SAT IS 92% ON ROOM AIR. PT APPEARS COMFORTABLE, CALL LIGHT IS WITHIN REACH.
--- NOTE | 2019-09-08 09:40 | NUR ---
ASSISTED PT UP TO BEDSIDE COMMODE, PT ABLE TO VOID AND HAD ONE SMALL SOFT BM. PT THEN AMBULATED TO THE BATHROOM TO WASH HANDS AND DO AM CARES. PT LEANED ON SINK AND BEGAN TO CRY "TITUS IS GONE". COMFORTED PT AND ASSISTED TO THE CHAIR TO SIT. PT GIVEN COFFEE AND ENGLISH TOAST, SHE IS ABLE TO GEOVANNY A FEW BITES AND MOST OF THE COFFEE. IV SITE IS INTACT, NO REDENSS OR SWELLING NOTED, FLUSHES AND FLUIDS INFUSE EASILY. DISCUSSED PLAN TO WASH PT HAIR LATER IN THE DAY, PT IS AGREABLE TO THIS PLAN. ALL LINENS ON BED CHANGED. PICKED UP GARBAGE IN ROOM, AND TIDIED UP ROOM.
--- NOTE | 2019-09-08 12:06 | NUR ---
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 Taken to bathroom on the way, has a small episode of light brown loose stool. Wiped with baby wipes, pt able to wash her hands, also washes her face. Returns to bed with standby assist, requesting warm blankets which are given. Pt alert during interaction, states she has a headache, notified I will let her primary RN know. No other needs at this time, side rails up and bed alarm on.
--- NOTE | 2019-09-08 12:10 | NUR ---
Received update from RN. Pt is grieving, cont. unchanged in medical status. Will follow up with pt on Wednesday.
--- NOTE | 2019-09-08 14:15 | NUR ---
WASHED PT HAIR WITH SHAMPOO AND CONDITIONER IN BED. PT WAS VERY RECEPTIVE TO THIS. PT DENIES NEED TO GET UP TO THE BATHROOM AT THIS TIME. PT DENIES PAIN, NAUSEA, AND SOB. IV SITE IS INTACT, NO REDNESS OR SWELLING NOTED, FLUIDS INFUSE EASILY. PT DENIES DESIRE TO GET UP TO THE CHAIR. PT WILLING TO TALK TO NIECE ON THE PHONE BRIEFLY. CALL LIGHT IS WITHIN REACH. CLEANED SINKS, COMMODE, AND TOILET IN ROOM E.S. IS NOT ALLOWED IN TO CLEAN DUE TO COVID POSITIVE. PT REFUSES LUNCH, ICE CREAM, AND COFFEE AT THIS TIME.
--- NOTE | 2019-09-08 16:16 | NUR ---
PT CALLED TO GET UP TO BATHROOM. ABLE TO VOID, SMALL AMOUNT OF INCONTINENCE NOTED, CLEAN ATTENDS IN PLACE. PT AMBULATED TO CHAIR, SITTING UP TO EAT DINNER. CALL LIGHT IS WITHIN REACH.
--- NOTE | 2019-09-08 18:50 | NUR ---
PT CALLS FOR TO GET UP TO THE BATHROOM. UNMEASURED VOID AND LOOSE STOOL. ADAM CARE DONE, CLEAN ATTENDS IN PLACE. PT BACK TO BED. CALL LIGHT IS WITHIN REACH. PT DENIES ANY OTHER NEEDS AT THIS TIME.
--- NOTE | 2019-09-08 19:42 | NUR ---
REPORT RECIEVED FROM CCU RN. CARE OF PATIENT ASSUMED AT THIS TIME.
--- NOTE | 2019-09-08 20:47 | NUR ---
IN ROOM FOR ASSESSMENT. PT RESTING IN BED WITH EYES CLOSED. AWAKES TO VOICE, ALERT AND ORIENTED AT THIS TIME. ONE PERSON ASSIST TO AMBULATE TO THE BATHROOM PT VOIDED, DID PM CARES. DISCUSSED PLAN OF CARE FOR NIGHT. PT LAYING BED, CALL LIGHT IN REACH, BED ALARM ON. IV FLUIDS INFUSING. NO FURTHER NEEDS AT THIS TIME.
--- NOTE | 2019-09-08 22:30 | NUR ---
PT RESTING WITH EYES CLOSED. RR=20. SPO2 93%
--- NOTE | 2019-09-08 23:00 | NUR ---
RESPONDED TO BED ALARM. PT ATTEMPTING TO EXIT BED. ASSISTED PT TO BATHROOM AND BACK TO BED. PT DENIES ANY PAIN OR DISCOMFORT. CALL LIGHT WITHIN REACH. NO FURTHER NEEDS AT THIS TIME. BED ALARM ON.
--- NOTE | 2019-09-09 02:00 | NUR ---
PT SLEEPING. RESPIRATIONS EVEN AND UNLABORED RR=18. SPO2= 92 % ON ROOM AIR.
--- NOTE | 2019-09-09 03:22 | NUR ---
RESPONDED TO PTS BED ALARM. ASSISTED PT TO BATHROOM AND BACK TO BED. ASSESSMENT COMPLETED. PT DENIES SHORTNESS OF BREATH, DISCOMFORT, OR PAIN. STATES, " I WISH I COULD BE AT HOME". PT BACK IN BED, WARM BLANKETS PROVIDED, BED ALARM ON, CALL LIGHT WITHIN REACH. NO FURTHER NEEDS AT THIS TIME.
--- NOTE | 2019-09-09 05:30 | NUR ---
pt sleeping. breathing even and unlabored. call light within reach. no further needs at this time
--- NOTE | 2019-09-09 06:55 | NUR ---
in room for blood draw and medication administration. pt ambulated to bathroom with one person assist. back in bed, call light within reach. bed alarm on. no further needs at this time.
--- NOTE | 2019-09-09 08:47 | NUR ---
IN PATIENT'S ROOM FOR ASSESSMENT AND VITALS. BREAKFAST ORDERED FOR PATIENT. PT SLEEPY BUT AWAKENS TO NAME. IV SITE IN LEFT INNER FOREARM INFILTRATED. NEW IV SITE TO BE ESTABLISHED.
--- NOTE | 2019-09-09 09:39 | NUR ---
PATIENT HELPED UP TO BATHROOM TO VOID AND HAD A SMALL AMOUNT OF STOOL WELL. ATTENDS WERE DRY. PT IS A STANDBY ASSIST WITH WALKER TO BATHROOM. INTO CHAIR FOR BREAKFAST. PT STATES, "I WISH I COULD JUST BE TAKEN DOWN TO [place], AND COVERED UP WITH A SHEET." DISCUSSED WITH PATIENT HER RECENT LOSS OF HER AND EXPRESSED MY SYMPATHY AND EMPATHY TOWARDS THIS. PATIENT REITERATES, "I JUST DON'T HAVE ANYTHING TO LIVE FOR. WHAT IS THERE FOR ME TO GO HOME TO? I WISH IT WOULD ALL JUST BE OVER. MY KIDS NEED ME TO MOVE ON, SO THEY CAN MOVE ON WITH THEIR LIVES." ENCOURAGED PATIENT TO DISCUSS THESE FEELINGS THIS MORNING WHEN SHE SEES DR. KABA. PT NOW EATING HER BREAKFAST. ENCOURAGED PATIENT TO CONTINUE USING CALL LIGHT WHEN SHE NEEDS ANYTHING. PT REMAINS ON ROOM AIR. DR. KABA NOW IN ROOM TO SEE PATIENT.
--- NOTE | 2019-09-09 11:21 | NUR ---
PATIENT RESTING IN CHAIR. NEW ORDERS REC'D. PT TO BE SALINE LOCKED. LUNCH ORDERED FOR PATIENT.
--- NOTE | 2019-09-09 12:33 | NUR ---
PATIENT HAD GOTTEN HERSELF BACK INTO BED AROUND 1145 AND WAS SLEEPING SOUNDLY. INTO ROOM AT THIS TIME TO HELP PATIENT TO BATHROOM AND VITALS, ASSESSMENT, MEDS.
--- NOTE | 2019-09-09 14:45 | NUR ---
PATIENT WORKING WITH PHYSICAL THERAPY AND AMBULATING IN ROOM. 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 PHONE CALL THEN TRANSFERRED INTO ROOM SO PATIENT AND SON COULD TALK. PATIENT HAS SINCE BEEN RESTING IN BED AND APPEARS IN NO ACUTE DISTRESS. PT REMAINS ON ROOM AIR.
--- NOTE | 2019-09-09 16:34 | NUR ---
PATIENT RESTING IN BED. DINNER TO BE ORDERED FOR PATIENT. RR EVEN, UNLABORED. RR HAS REMAINED BETWEEN 18-22. CONTINUE TO MONITOR.
--- NOTE | 2019-09-09 18:03 | NUR ---
IN ROOM WITH PATIENT SHE FINISHES DINNER. SAT AND TALKED WITH PATIENT FOR A WHILE. PT'S REMDESIVIR INFUSING. TEMP 100.3 ORALLY, AND RECHECKED ABOUT 30 MINUTES LATER AND 99.5 NOW. PT MORE CONVERSIVE THAN SHE WAS A FEW DAYS AGO. PT DENIES PAIN OR SHORTNESS OF BREATH. PT ATE ABOUT 50% OF HER DINNER.
--- NOTE | 2019-09-09 19:30 | NUR ---
REPORT RECIEVED, CARE ASSUMED AT THIS TIME. PT AMBULATED TO BATHROOM WITHOUT ASSISTANCE. IN ROOM AT THIS TIME, PT IS UNSTEADY ON FEET. ASSESSMENT COMPLETED. MEDICATIONS GIVEN. PT COMPLAINS OF HAVE EPIGASTRIC PAIN, PRN MEDICATION GIVEN (SEE EMAR). PT NOW RESTING IN BED, CALL LIGHT WITHIN REACH. BED ALARM ON. NO FURTHER NEEDS AT THIS TIME.
--- NOTE | 2019-09-09 20:30 | NUR ---
PT RESTING WITH EYES CLOSED, BREATHING EVEN AND UNLABORED. CALL LIGHT WITHIN REACH. BED ALARM ON. NO ASSESSED NEEDS AT THIS TIME.
--- NOTE | 2019-09-09 21:22 | NUR ---
RESPONDED TO PT BED ALARM. PT INCONTINENT OF STOOL. LOOSE WATERY BOWEL MOVEMENT IN ATTENDS AND IN TOLIET. BARRIER CREAM PLACED ON ADAM AREA FOR COMFORT. PT BACK IN BED, ALARM IN PLACE, CALL LIGHT WITHIN REACH. NO FURTHER NEEDS AT THIS TIME.
--- NOTE | 2019-09-09 23:15 | NUR ---
PT UP TO BATHROOM AND BACK TO BED. STATES EPIGASTRIC PAIN HAS RESOLVED. TEMPATURE 98.9. DENIES ANY OTHER NEEDS. CALL LIGHT WITHIN REACH AND BED ALARM IN PLACE.
--- NOTE | 2019-09-10 00:30 | NUR ---
Pt resting with eyes closed. breathing even and unlabored RR=13. SPO2= 92 % on RA. Bed alarm on. no assessed needs at this time.
--- NOTE | 2019-09-10 02:00 | NUR ---
Pt's oxygen saturations dipped into the mid to high 80s momentarily, then increased to 93-94 %. will continue to monitor.
--- NOTE | 2019-09-10 03:50 | NUR ---
IN ROOM FOR ASSESSMENT. PT SLEPT THROUGH ASSESSMENT. MAGNESIUM INFUSION COMPLETE. PT SALINE LOCKED AT THIS TIME. LUNGS SOUND COARSE THROUGHOUT WITH AN EXPIRATORY WHEEZE. NO SIGNIFICANT CHANGES IN EDEMA. PT SATURATING AT 96 PERCENT ON 1 L NC. PT VOIDING LARGE AMOUNTS OF ORANGE URINE. CALL LIGHT WITHIN REACH. NO FURTHER NEEDS AT THIS TIME.
--- NOTE | 2019-09-10 04:15 | NUR ---
PT UP TO BATHROOM. ASSISTED WITH PERICARE AND PROVIDED A FRESH ATTENDS. PT BACK IN BED, ASSESSMENT COMPLETED AT THIS TIME. PT PLACED ON 1 L NC, DUE TO SPO2 DROPPING TO 87% AT REST. SATURAITONS AT 97 PERCENT ON 1 NC AT THIS TIME. PT DENIES ANY PAIN. BED ALARM IN PLACE, CALL LIGHT WITHIN REACH. NO FURTHER NEEDS AT THIS TIME.
--- NOTE | 2019-09-10 05:30 | NUR ---
PT RESTING WITH EYES CLOSED. BREATHING EVEN AND UNLABORED. SPO2 =98% ON 1 L NC.
--- NOTE | 2019-09-10 06:39 | NUR ---
PT REMAINS ASLEEP SPO2 =98 PERCENT ON RA. CALL LIGHT WITHIN REACH. BED ALARM ON. NO ASSESSED MEEDS AT THIS TIME.
--- NOTE | 2019-09-10 07:01 | NUR ---
PT UP TO BATHROOM WITH 4WW. BACK IN BED, CALL LIGHT WITHIN REACH. NO FURTHER NEEDS AT THIS TIME
--- NOTE | 2019-09-10 08:11 | NUR ---
PATIENT SLEEPING AT THIS TIME. BREAKFAST ORDERED. RR EVEN AND UNLABORED, SP02 IS 97% ON ROOM AIR. NO REPORTED FEVERS THROUGH THE NIGHT.
--- NOTE | 2019-09-10 08:58 | NUR ---
DR. KABA IN ROOM TO SEE PATIENT. PATIENT STATES SHE IS FEELING BETTER TODAY, WITH A LITTLE MORE ENERGY. PT REMAINS ON ROOM AIR AT 95% AT THIS TIME. PLAN TO DO ANOTHER CORONAVIRUS TEST TODAY.
--- NOTE | 2019-09-10 09:24 | NUR ---
PATIENT SITTING IN CHAIR EATING BREAKFAST. UP TO BATHROOM TO VOID. PT REPORTS FEELING BETTER AND SEEMS IN BETTER SPIRITS, SMILING MORE. ASSESSMENT COMPLETE. PT REMAINS ON ROOM AIR, DENIES ANY SHORTNESS OF BREATH. PT TO BE RE TESTED TODAY FOR COVID-19. CALL LIGHT WITHIN REACH AND PHONE WITHIN REACH.
--- NOTE | 2019-09-10 10:56 | NUR ---
PATIENT REMAINS SITTING IN CHAIR AT THIS TIME WITH CALL LIGHT IN REACH. PT HAS TALKED WITH HER SON BROOKE AND HER EMMA RUBALCAVA ON THE PHONE THIS AM. HER DAUGHTER HAS ALSO CALLED THIS MORNING TO CHECK ON PATIENT.
--- NOTE | 2019-09-10 12:25 | NUR ---
INTO PATIENT'S ROOM FOR ASSESSMENT AND VITALS. PT UP TO BATHROOM. WILL SIT IN CHAIR FOR LUNCH. PT REMAINS IN GOOD SPIRITS.
--- NOTE | 2019-09-10 14:40 | NUR ---
PATIENT WORKING WITH PHYSICAL THERAPY AT THIS TIME.
--- NOTE | 2019-09-10 17:23 | NUR ---
PATIENT USES CALL LIGHT AND STATES SHE NEEDS TO GO TO THE BATHROOM. UP TO BATHROOM WITH WALKERLAURA.
--- NOTE | 2019-09-10 18:25 | NUR ---
PATIENT USES CALL LIGHT AND UP TO BATHROOM FROM CHAIR. PT ATE APPROX 25% OF HER DINNER. PT HAS REMAINED ALERT, ORIENTED, AND VERY PLEASANT. PT NOTES HOW HARD IT WAS TO WALK BY HER 'S ROOM DOWN THE [place] EARLIER WHEN SHE WAS WORKING WITH PHYS THERAPY. COVID TEST PENDING, HOPEFUL RESULTS TOMORROW. PT AWARE OF PLAN OF CARE.
--- NOTE | 2019-09-10 19:22 | NUR ---
PT REPORT RECIEVED. CARE OF PATIENT ASSUMED AT THIS TIME. RESPONDED TO PT CALL. LIGHT. PT AMBULATED OT BATHROOM WITH 4WW. STEADY ON FEET. STANDY BY ASSIST ONLY REQUIRED. PT BACK IN BED. PLAN OF CARE FOR NIGHT DISCUSSED AT THIS TIME. CALL LIGHT WITHIN REACH. NO FURTHER NEEDS AT THIS TIME
--- NOTE | 2019-09-10 19:50 | NUR ---
PLAN TO AMBULATE IN THE [place] BEFORE BED ESTABLISHED. ASSESSMENT COMPLETE. PT REMAINS SITTING UP IN CHAIR. PT DISCUSSED ANXIETY ABOUT PLAN FOR FUTURE AFTER OF . THERAPEUTIC COMMUNICATION. CALL LIGHT WITHIN REACH. NO FURTHER NEEDS AT THIS TIME
--- NOTE | 2019-09-10 21:00 | NUR ---
IN ROOM FOR MEDICATION ADMINISTRATION. PT STATES SHE IS TOO TIRED TO AMBULATE. ASSISTED PT BACK TO BED. SPO2 MONITOR IN PLACE, CALL LIGHT WITHIN REACH. WARM BLANKETS PROVIDED. NO FURTHER NEEDS AT THIS TIME.
--- NOTE | 2019-09-11 00:07 | NUR ---
PT UP TO BATHROOM. STAND BY ASSIST WITH 4WW. BACK IN BED. CALL LIGHT WITHIN REACH. NO FURTHER NEEDS AT THIS TIME.
--- NOTE | 2019-09-11 02:30 | NUR ---
PT UP TO BATHROOM. ASSESSMENT COMPLETED AT THIS TIME. PT STATES SHE IS HAVING TROUBLE SLEEPING. ASSITED WITH POSITIONING IN THE BED, CALL LIGHT WITHIN REACH. NO FURTHER NEEDS AT THIS TIME
--- NOTE | 2019-09-11 04:05 | NUR ---
PT UP TO BATHROOM AND BACK TO BED. STILL REPORTS BEING UNABLE TO SLEEP. STATES, "I CANT TURN MY MIND OFF" THERAPEUTIC COMMUNICATION. CALL LIGHT WITHIN REACH. NO FURTHER NEEDS AT THIS TIME.
--- NOTE | 2019-09-11 06:00 | NUR ---
PT SATURATIONS DROPPED INTO THE MID 80S AND STAYED BELOW 90 FOR THREE MINUTES TOTAL, PLACED ON 1 L NC AT THIS TIME. SATURATIONS NOW IN THE MID 90S ON 1 L NC.
--- NOTE | 2019-09-11 07:30 | NUR ---
REPORT RECIEVED. PATIENT IS RESTFUL IN BED. NO DISTRESS NOTED.
--- NOTE | 2019-09-11 08:00 | NUR ---
ASSESSMENT DONE. DENIES PAIN OR SHORTNESS OF BREATH. IS VERY TIRED. TALKED WITH PATIENT ABOUT POC FOR DAY. PATIENT WITH FLAT AFFECT. COVID TEST PENDING.
--- NOTE | 2019-09-11 08:30 | NUR ---
Left messages with [facility] and Jonathan in [place] requesting policy for Covid patients who are not neg.
--- NOTE | 2019-09-11 08:50 | NUR ---
Spoke with Shoaib by phone. Discussed how she is feeling and offered to schedule an appt with a counselor. Pt states she is very depressed and very down. She declines counseling at this point as she feels she is not ready. Discussed she will be discharged in the near future and requested where she would like to discharge. She would like to go home, discussed nurses who have been caring for her are concerned as she is unsteady with a walker and not really eating. They encourage her to order food. Concern if she goes home she will not eat. Asked if she would be willing to go the SNF for a short while and she is in agreement. She states she has no preference for one or the other, but would like to stay in town. Informed we are waiting for two neg. covid tests prior to dc. Will work on placement to a half-way.
--- NOTE | 2019-09-11 08:55 | NUR ---
AMBULATED TO BR TO VOID THEN TO CHAIR FOR BREAKFAST. USING WALKER IN ROOM WHEN AMBULATING. IS STEADY ON FEET.
--- NOTE | 2019-09-11 09:35 | NUR ---
Spoke with son, Godfrey. He states he is pt.s POA. Updated Shoaib agreed to go to a SNF for a short time for PT. He is happy with this as he did not think she would go. States pt has been declining for some time with dementia, father cared for her, drove her, and set up meds. He states Shoaib did the shopping and on hospitalization, he found 6 gallons of spoiled milk and two large packages of miller which were green with mold. Discussed LT placement and he would like her to go to an Assisted Living. Informed he should call and get her name on a list of the places he would like her to go . He is thinking a memory care unit and let him know it can 20-30 days for placement, while waiting for a bed to open. He states he will work on this. Updated we will need to have two neg. covid tests prior to placement in a SNF. Understanding stated.
--- NOTE | 2019-09-11 12:30 | NUR ---
patient remains in chair, DR. CONNELL HERE TO SEE PATIENT. PATIENT W/O C/O.
--- NOTE | 2019-09-11 13:26 | NUR ---
CAME TO CHECK ON PT-ON PRECAUTIONS AND PRESENTLY ON PHONE. WILL CHECK BACK
--- NOTE | 2019-09-11 13:39 | NUR ---
TOOK LUNCH FAIR. SLEEPING IN CHAIR. NO DISTRESS NOTED.
--- NOTE | 2019-09-11 14:50 | NUR ---
TO BR TO VOID THEN TO BED. REMAINS TIRED.
--- NOTE | 2019-09-11 19:24 | NUR ---
ERPORT RECIEVED. CARE OF PATIENT ASSUMED AT THIS TIME. PT UP IN RECLINER, SPEAKING ON THE TELEPHONE TO FAMILY. CALL LIGHT WITHIN REACH. NO NEEDS AT THIS TIME
--- NOTE | 2019-09-11 20:18 | NUR ---
ASSESSMENT AND MEDICATION ADMINISTRATION COMPLETED AT THIS TIME. PT ASKING QUESTIONS ABOUT PLANS FOR CARE NOW THAT SECOND COVID TEST HAS COME BACK POSITIVE. QUESTIONS ANSWERED. PLAN OF CARE FOR NIGHT ESTABLISHED. PT DENIES FURTHER NEEDS AT THIS TIME.
--- NOTE | 2019-09-11 22:00 | NUR ---
RESPONDED TO PT CALL LIGHT. PT UP TO BATHROOM AND THEN TO BED. PROVIDED WARM BLANKET. CALL LIGHT WITHIN REACH. SPO2 MONITOR IN PLACE. NO FURTHER NEEDS AT THIS TIME.
--- NOTE | 2019-09-12 00:23 | NUR ---
PT REMAINS ASLEEP WITH EYES CLOSED, BREATHING EVEN AND UNLABORED. SPO2 AT 92 PERCENT ROOM AIR. CALL LIGHT WITHIN REACH. NO FURTHER NEEDS AT THIS TIME.
--- NOTE | 2019-09-12 02:00 | NUR ---
PT CONTINUES TO REST WITH EYES CLOSED, BREATHING EVEN AND UNLABORED. CALL LIGHT WITHIN REACH. NO ASSESSED NEEDS AT THIS TIME.
--- NOTE | 2019-09-12 02:30 | NUR ---
PT UP TO BATHROOM WITH 4WW. BACK TO BED, WARM BLANKETS PROVIDED.
--- NOTE | 2019-09-12 08:36 | NUR ---
PT WOKE AND ASSESSMENT AND VITALS COMPLETE. WARM CLOTH GIVEN AND FACE AND HANDS WASHED AND DRIED. PT ASSISTED WITH FWW TO CHAIR AND BLANKET ON LAP. BREAKFAST ORDERED. MEDS ADMINISTERED. PT DENIES PAIN OR NEEDS.
--- NOTE | 2019-09-12 09:11 | NUR ---
PT UP TO RESTROOM FOR UNMEASURED VOID, CHANGED DEPENDS. BREAKFAST AND COFFEE AT CHAIRSIDE. PT STATES COFFEE TASTES GOOD. ADVISED HER TO TRY TO EAT AT LEAST THE EGGS FOR STRENGTH. SWEPT AND MOPPED FLOOR AND STRAIGHTENED ROOM. PT ASKED ABOUT AND SPOKE ABOUT THE .
== END 2019-09-12 10:54 | disposition swing bed (61) | DRG 177 ==
LOC: ED 16:34 → CCU 16:35 → ED 19:31 → CCU 19:31
PROVIDERS: ADMIT Student in an Organized Health Care Education/Training Program
DX: U07.1 COVID-19 (principal); J12.89 Other viral pneumonia; J96.01 Acute respiratory failure with hypoxia; N17.9 Acute kidney failure, unspecified; E03.9 Hypothyroidism, unspecified; I12.9 Hypertensive chronic kidney disease with stage 1 through stage 4 chronic kidney disease, or unspecified chronic kidney disease; N18.9 Chronic kidney disease, unspecified; I25.2 Old myocardial infarction; I25.10 Atherosclerotic heart disease of native coronary artery without angina pectoris; E78.5 Hyperlipidemia, unspecified; F43.21 Adjustment disorder with depressed mood; Z66 Do not resuscitate; Z86.73 Personal history of transient ischemic attack (TIA), and cerebral infarction without residual deficits; Z88.2 Allergy status to sulfonamides; Z88.5 Allergy status to narcotic agent; Z79.899 Other long term (current) drug therapy; Z79.891 Long term (current) use of opiate analgesic
CPT/HCPCS: 71045; 80048; 80053; 82728; 83605; 83735; 83880; 85025; 85379; 86140; 87040; 96361; 96374; 97110; 97116; 97162; 99285-25; C9803; J1650; J2405; J3480; J7040; J7050; J7121; U0002

== ENCOUNTER 2019-09-12 10:55 | Inpatient (IN) | payer MEDICARE, OTHER ==
[~2019-09-12] VITALS: Ht 167.6 cm; Wt 54.0 kg
--- OUTSIDE RECORDS SUMMARY | ~2019-09-12 | XMS | Encounter Summary ---
Demographics + + + | Address | [address] | | | [place] [address] | + + + | Home Phone | | + + + | Preferred Language | Unknown | + + + | Marital Status | | + + + | Druze Affiliation | Unknown | + + + | Race | Unknown | + + + | Ethnic Group | Unknown | + + + Author + + + | Author | [facility] | | | and [place] | + + + | Organization | [facility] | [...] Team Providers + +------+ + | Care Sewing Inspector Name | Role | Phone | + [...] + + | 08/06/ | Documentati | [facility] | Rogelio, | Other (CT scan | | 2019 | on | NEPHROLOGY [place] | [address] | abdomen 08/04/19) | | | | [address] [place] | [facility]ists | | | | | [address] [place], [place] | | | | | | [address] | | | | | | [phone] | | | +--------+ + + + [...] on file | | + + + documented as of this [...] [place] | | | | | | [id number] | | | | | | | | +--------+---------+ + + + | 01/17/ | Office | Cardiology | Brianna Stewart | | | 2019 | Visit | | [address] | | | | | | [place] [address] | | | | | | [place] [address] | | | | | | [phone] | | | | | | | | +--------+---------+ + + + documented as of this encounter Visit Diagnoses Not on filedocumented in this encounter"
--- OUTSIDE RECORDS SUMMARY | ~2019-09-12 | XMS | Encounter Summary ---
Demographics + + + | Address | [address] | | | [place] [address] | + + + | Home Phone | | + + + | Preferred Language | Unknown | + + + | Marital Status | | + + + | Rastafari Affiliation | Unknown | + + + | Race | Unknown | + + + | Ethnic Group | Unknown | + + + Author + + + | Author | [facility] | | | and [place] | + + + | Organization | [facility] | | | [...] Team Providers + +------+ + | Care Medical Writer Name | Role | Phone | + +------+ + | Luanne Love | PCP | | | PA | | | + +------+ + Reason for Visit Evaluate & Treat (Routine) + + + + + + + | Status | Reason | Specialty | Diagnoses / | Referred By | Referred To | | | | | Procedures | Contact | Contact | + + + + + + + | Authorizatio | Specialty | Nephrology | Diagnoses | Terry, | Maxx Buchanan | | n not | Services | | Stage 3 | Brianna Ko, | MD [address] | | Required | Required | | chronic | [employer] [address] | | | | | kidney | [address] | [address] | | | | | disease | [address] | [place], | | | | | ([facility]) | [place], [place] | [place] [address] | | | | | | [address] | Phone: | | | | | | Phone: | [phone] | | | | | | [phone] | Fax: | | | | | | Fax: | [phone] | | | | | | [phone] | | + + + + + + + Encounter Details +--------+---------+ + + + | Date | Type | Department | Care Team | Description | +--------+---------+ + + + | 08/03/ | Office | [facility] | Maxx Buchanan MD | Chronic kidney | | 2020 | Visit | NEPHROLOGY [facility] | [address] [facility] | disease, stage III | | | | [address] | [address] [facility], [place] | (moderate) (Primary | | | | [address] | [address] | Dx); Generalized | | | | [place], [place] | | abdominal pain; | | | | [address] | | Electrolyte | | | | [phone] | | imbalance risk | +--------+---------+ + + + Social History [...] + + + | Blood Pressure | 120/60 | 08/04/2019 2:51 PM | | | | | PDT | | + + + + + | Pulse | 80 | 08/04/2019 2:51 PM | | | | | PDT | | + + + + + | Temperature | - | - | | + + + + + | Respiratory Rate | - | - | | + + + + + | Oxygen Saturation | 97% | 08/04/2019 2:51 PM | | | | | PDT | | + + + + + | Inhaled Oxygen | - | - | | | Concentration | | | | + + + + + | Weight | 57.7 kg (127 lb 3.2 | 08/04/2019 2:51 PM | | | | oz) | PDT | | + + + + + | Height | 162.6 cm (5' 4") | 08/04/2019 2:51 PM | | | | | PDT | | + + + + + | Body Mass Index | 21.83 | 08/04/2019 2:51 PM | | | | | PDT | | + + + + + documented in this encounter Patient Instructions Patient Instructions Maxx Buchanan MD - 08/04/2019 2:40 PM PDTDiscussions/Recommendations : I discussed today with Ms. Juarez the meaning of her CKD and the interaction of that with her volume status & her heart function. I stressed the importance of avoiding getting dehydrated if we are to have a chance at h elping preserve her renal function. She showed good understanding. She will strictly abide by a low salt diet. She will avoid all kinds of NSAIDs for analgesia. Also: I will not change any of her vasoactive meds today. I sent her for a non-contrast CT scan of the abdomen & pelvis (abdominal pain; CKD III). She knows to F/U closely on her abdominal symptoms with your office. She will F/U with your office regularly. She will have a BMP, CBC, intact PTH, rU/A, Urine vgrfxhmkodou-vy-dxdmneougy ratio befor e she comes back in 3 months. 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 Juarez in consult today. As you are familiar with h er case, I will not state her past history in detail. Briefly, she is a 88 y.o. female judith ent with past history as delineated above. She is here to be evaluated for a recent deterio ration in her renal function. On 05/08/2019, her sCr & eGFR were 1.78 & 27. The patient denies any history of prolonged exposure to NSAIDs or recent exposure to known nephrotoxins. She denies any recurrent nephrolithiasis or pyelonephritis; she tells me that She's had no history of urinary retention, gross hematuria or dysuria. She has minimal chron ic mixed incontinence symptoms. No symptoms of UTI. She has 2 nightly nocturia. No history of passing kidney stones. She has no foamy urine either. Her baseline Creatinine is 1.4 fro m 01/2017. There is no family history of renal genetic diseases such as PKD. She says that she feels 'good ' today. She denies any blurred vision tinnitus, headache, f ever, chills, or cough. She has recurrent nausea, vomiting, abdominal pain, diarrhea, for w hich she F/U's with your office; these are chronic with frequent flare ups. No melena, or he matochezia. No chest pain, palpitation, dizziness, loss of consciousness, orthopnea, paroxy smal nocturnal dyspnea, or leg edema. She has chronic BRYAN for which she F/U's with your offi ce. The following portions of the patient's history were reviewed and updated as appropriate: a llergies, current medications, past medical history, past social history, past surgical hist ory, family history and problem list. I also reviewed with her the records received from you r office; these were very informative. As in History of Present Illness & in Assessment. All the twelve systems were reviewed and were otherwise negative. Active comorbid conditions include: - CAD; without angina; of [place] artery - hypertension; essential; with renal disease; 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 - past [place]; occured more than 28 days prior to admission - renal disease; CKD; Stage 3 - neuromuscular disease - arthritis Past Medical History: Diagnosis Date Chronic kidney disease, stage III (moderate) (HCC) 09/23/2015 Coronary artery disease Hyperlipidemia Hypertension Joint pain Neuromuscular disorder ([facility]) NSTEMI (non-ST elevated myocardial infarction) ([facility]) 05/19/2015 Thyroid disease No past surgical history on file. Family History Problem Relation Age of Onset Cancer Mother Cancer Father Heart disease Brother Social History Socioeconomic History Marital status: Spouse name: Not on file Number of children: Not on file Years of education: Not on file Highest education level: Not on file Occupational History Not on file Social Needs Financial resource strain: Not on file Food insecurity: Worry: Not on file Inability: Not on file Transportation needs: Medical: Not on file Non-medical: Not on file Tobacco Use Smoking status: Never Smoker Smokeless tobacco: Never Used Substance and Sexual Activity Alcohol use: Not Currently Drug use: Never Comment: Drug use: No Sexual activity: Not on file Lifestyle Physical activity: Days per week: Not on file Minutes per session: Not on file Stress: Not on file Relationships Social connections: Talks on phone: Not on file Gets together: Not on file Attends anabaptist service: Not on file Active member of club or organization: Not on file Attends meetings of clubs or organizations: Not on file Relationship status: Not on file Intimate partner violence: Fear of current or ex partner: Not on file Emotionally abused: Not on file Physically abused: Not on file Forced sexual activity: Not on file Other Topics Concern Not on file Social History Narrative Not on file Allergies Allergen Reactions Sulfa Antibiotics Hives,Rash Codeine Itching Itching Gabapentin Nausea Only Nausea Intolerance No active intolerances/contraindications Current Outpatient Medications: atorvaSTATin (LIPITOR) 40 mg tablet, Take 1 tablet by mouth nightly., Disp: 90 tablet, Rfl: 3 clopidogrel (PLAVIX) 75 mg tablet, Take 1 tablet by mouth Daily., Disp: 90 tablet, Rfl : 3 dorzolamide (TRUSOPT) 2% ophthalmic solution, Place 1 drop into the left eye 2 times d aily., Disp: , Rfl: famotidine (PEPCID) 20 mg tablet, Take 20 mg by mouth 2 times daily., Disp: , Rfl: isosorbide mononitrate (IMDUR) 30 mg ER tablet, Take 30 mg by mouth Daily., Disp: , Rf l: levothyroxine (SYNTHROID) 125 mcg tablet, Take 125 mcg by mouth every morning (before breakfast)., Disp: , Rfl: metoprolol tartrate (LOPRESSOR) 25 mg tablet, Take 1 tablet by mouth 2 times daily., D isp: 60 tablet, Rfl: 11 mirtazapine (REMERON) 15 MG tablet, Take 1 tablet by mouth daily., Disp: , Rfl: nitroglycerin (NITROSTAT) 0.4 mg SL tablet, Place 0.4 mg under the tongue as needed., Disp: , Rfl: sucralfate (CARAFATE) 1 g tablet, Take 1 g by mouth 4 times daily., Disp: , Rfl: Physical Exam: BP 120/60 | Pulse 80 | Ht 1.626 m (5' 4") | Wt 57.7 kg (127 lb 3.2 oz) | SpO2 97% | BM I 21.83 kg/m General appearance: Pleasant, not in acute distress. Neck: Supple without tracheal deviation or jugular venous distension. Head and ENT: Head is atraumatic. The oropharynx is without erythema or thrush. Eyes: Anicteric. The extraocular muscle movements are normal. Lungs: Clear to auscultation bilaterally. There are no wheezes. Heart: Regular rate and rhythm without any rub, gallop. No systolic murmur. Abdominal exam: Soft but diffusely tender, with normal bowel sounds. Musculoskeletal: No costovertebral angle tenderness bilaterally. Extremities: Warm to touch with no leg edema. There is no cyanosis. Skin: There are no rashes, petechiae, or ecchymosis. Neurological: Awake, alert, and oriented to time, place, and person. Normal gross motor po wer. There is no asterixis. Psychiatric: The patient s behavior is normal. Judgment and thought content are normal. Lab Results Component Value Date HGB 13.3 08/04/2019 HGB 8.7 (L) 05/20/2015 NA 140 08/04/2019 K 4.0 08/04/2019 CL 106 08/04/2019 CO2 26 08/04/2019 BUN 23 08/04/2019 CREA 1.44 (A) 08/04/2019 CALCIUM 9.36 08/04/2019 EGFR 35.0 (A) 08/04/2019 No components found for: MALBRX No components found for: MICROALBUR Assessment: Ms. Juarez is a 88 y.o. female patient with stage III CKD on a background of chronic diarrhea She has recurrent nausea, vomiting, abdominal pain, diarrhea, for which she F/U's with your office; these are chronic with frequent flare ups). RENAL FUNCTION: GFR is better vs 05/08/2019 BLOOD PRESSURE: Reports it okay BLOOD SUGAR: Reports it normal ELECTROLYTES: ok ANEMIA: none VITAMIN D: To be checked thru your office PARATHYROID HORMONE: To be checked URIC ACID: ok PROTEINURIA: To be checked URINALYSIS: No gross hematuria; no UTI symptoms. RU/A to be checked VOLUME STATUS: Euvolumic. Discussions/Recommendations: I discussed today with Ms. Juarez the meaning of her CKD and the interaction of that with her volume status & her heart function. I stressed the importance of avoiding getting dehydrated if we are to have a chance at h elping preserve her renal function. She showed good understanding. She will strictly abide by a low salt diet. She will avoid all kinds of NSAIDs for analgesia. Also: I will not change any of her vasoactive meds today. I sent her for a non-contrast CT scan of the abdomen & pelvis (abdominal pain; CKD III). She knows to F/U closely on her abdominal symptoms with your office. She will F/U with your office regularly. She will have a BMP, CBC, intact PTH, rU/A, Urine nirmymckfexe-zm-urfmfrkmrl ratio befor e she comes back in 3 months. 25 minutes of this 45-minute visit was spent in education and counseling. Thank you Brianna Ko for the opportunity to see this patient in consult today. Please do not hesitate to call me at any time with questions or concerns. Truly yours, Maxx Buchanan MD FACP FAHA documented in this enco unter Plan of Treatment +--------+---------+ + + + | Date | Type | Specialty | Care Team | Description | +--------+---------+ + + + | 11/07/ | Office | Nephrology | Maxx Buchanan MD | | 2019 | Visit | | [address] | | | | | | [address] [place] | | | | | | [address] | | | | | | | | +--------+---------+ + + + | 01/17/ | Office | Cardiology | Terry Brianna | | 2019 | Visit | | [address] | | | | | | [address] | | | | | | [place] [address] | | | | | | [phone] | | | | | | | | +--------+---------+ + + + documented as of this encounter Visit Diagnoses + + | Diagnosis | + + | Chronic kidney disease, stage III (moderate) - Primary | + + | Generalized abdominal pain Abdominal pain, generalized | + + | Electrolyte imbalance risk Other specified conditions influencing health status | + + documented in this encounter
--- OUTSIDE RECORDS SUMMARY | ~2019-09-12 | XMS | Encounter Summary ---
Demographics + + + | Address | [address] | | | [place] [address] | + + + | Home Phone | | + + + | Preferred Language | Unknown | + + + | Marital Status | | + + + | Hindu Affiliation | Unknown | + + + | Race | Unknown | + + + | Ethnic Group | Unknown | + + + Author + + + | Author | [facility] | | | and [place] | + + + | Organization | [facility] | | | [...] Team Providers + +------+ + | Care University Controller Name | Role | Phone | + +------+ + | Luanne Love | PCP | | | PA | | | + +------+ + Encounter Details +--------+ + + + + | Date | Type | Department | Care Team | Description | +--------+ + + + + | 08/11/ | Orders Only | [facility] | Brianna Stewart | | | 2019 | | CARDIOLOGY [place] | [address] | | | | | [address] | [address] | | | | | [address] | [place] [address] | | | | | [place] | [phone] | | | | | [address] | | | | | | [phone] | | | +--------+ + + + [...] [place] | | | | | | [address] | | | | | | | | +--------+---------+ + + + | 01/17/ | Office | Cardiology | Brianna Stewart | | | 2020 | Visit | | [address] | | | | | | [address] | | | | | | [place] [address] | | | | | | [phone] | | | | | | | | +--------+---------+ + + + documented as of this encounter Visit Diagnoses Not on filedocumented in this encounter"
--- OUTSIDE RECORDS SUMMARY | ~2019-09-12 | XMS | Encounter Summary ---
Demographics + + + | Address | [address] | | | [place] [address] | + + + | Home Phone | | + + + | Preferred Language | Unknown | + + + | Marital Status | | + + + | Evangelical Affiliation | Unknown | + + + | Race | Unknown | + + + | Ethnic Group | Unknown | + + + Author + + + | Author | [facility] | | | and [place] | + + + | Organization | [facility] | | | [...] Team Providers + +------+ + | Care Email Administrator Name | Role | Phone | + +------+ + PCP | Unavailable | + +------+ + Encounter Details +--------+ + + + + | Date | Type | Department | Care Team | Description | +--------+ + + + + | 05/19/ | Hospital | [facility] | Maxx Barker MD | NSTEMI (non-ST | | 2016 - | Encounter | [facility] | [address] | elevated myocardial | | | | CARE FLOOR [address] | [place] [address] | infarction) ([facility]) | | 05/21/ | | [facility] | [phone] | | | 2015 | | [place], [place] | | | | | | [address] | | | | | | [phone] | | | +--------+ + + + [...] Discharge Summaries by Maxx Barker MD at 05/21/15916 Author: Maxx Barker MD Service: Cardiology Author Type: Physician Filed: 05/21/15 1413 Date of Service: 05/21/15916 Status: Signed Machine Feeder: Maxx Barker MD (Physician) [facility] Service: Cardiology Discharge Summary Date of [...] with Dr. Collins as she lives in [place]. Referral to cardiac rehab as an outpatient. [...] are the prescriptions that you need to black pickler. You may get the following medications from [...] Case Management by ANDREW Multani at 05/21/15 1508 Author: ANDREW Multani Service: (none) Author Type: Aquatic Physiotherapist Filed: 05/21/15 1509 Date of Service: 05/21/151507 Status: Signed Machine Feeder: ANDREW Multani (Aquatic Physiotherapist) 05/21/15 1500 Discharge Planning Evaluation Admitting Diagnosis NSTEMI Anticipated Disposition Facility Type Home BUSINESS ANALYST INTERN met with Leonie NORRIS Nurse, states no discharge needs or concerns at this time. DCP: Home MAKENZIE WILLAMS, Uptwister Tender [phone] onver joseph Transaction, Provider Unknown - 05/21/2015 10:57 AM PST Nurse Progress Note by Leonie Tapia RN at 05/21/151056 Author: Leonie Tapia RN Service: (none) Author Type: Registered Nurse Filed: 05/21/15 1058 Date of Service: 05/21/151056 Status: Signed Machine Feeder: Leonie Tapia RN (Registered Nurse) D/c instructions completed by JULIAN Steinberg. Pt and family stated understanding to d/c paperwo rk, follow up and new prescriptions. onver joseph Transaction, Provider Unknown - 05/20/2015 1:47 PM PST Case Management by Cierra Caban RN at 05/20/15 4947 Author: Cierra Caban RN Service: (none) Author Type: Registered Nurse Filed: 05/20/159 Date of Service: 02/22/16 1347 Status: Signed Machine Feeder: Cierra Caban RN (Registered Nurse) 05/20/15 1344 Discharge Planning Evaluation Admitting Diagnosis NSTEMI Readmission [...] y.o., female who lives with spouse in [facility]. She is independent in all adl's and [...] 05/19/151811 Date of Service: 05/19/151809 Status: Signed Machine Feeder: Chapo Coles RN (Registered Nurse) VSS, pt more comfortable. No further bleeding from R radial site. Dinner ordered. Pt still c/o low-grade CP, rating 4/10. Will Continue to monitor. amaris Vasquez RPH - 05/19/2015 5:22 PM PSTFormatting of this note might be different from t penelope original. Progress Notes by Damaris Ritter RPH at 05/19/151721 Author: Damaris Ritter RPH Service: (none) Author Type: Pharmacist Filed: 05/19/151721 Date of Service: 05/19/151721 Status: Signed Machine Feeder: Damaris Ritter RPH (Pharmacist) Clinical Pharmacy Note - Renal Dose Adjustment Damir Alejandro 84 y.o. female Ht Readings from Last 1 Encounters: 05/19/15 1.626 m (5' 4") Wt Readings from Last 1 Encounters: 05/19/15 61.78 kg (136 lb 3.2 oz) CREATININE Date Value Ref Range Status 05/19/2015 1.5* 0.50 - 1.00 mg/dL Final Comment: Testing performed at [facility];[address] [place] [address];[place] [address] CREATININE: 1.5 mg/dL ABNORMAL (05/19/15 1205) Estimated creatinine clearance - 25 mL/min Pharmacy to renally adjust medications per Dr. Soriano Plan: No medications will require renal dose adjustment based on patient's current estimate d Crcl. Pharmacy will continue to follow and adjust as appropriate. Pharmacist: Damaris Ritter 05/19/2015 5:22 PM onversio n Transaction, Provider Unknown - 05/19/2015 5:04 PM PSTFormatting of this note might be di fferent from the original. 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 Bolus of NS started, pt placed in [...] to monitor. docume nted in this encounter H&P Notes Maxx Barker - 05/19/2015 1:02 PM PST H&P by Maxx Barker MD at 05/19/15 1302 Author: Maxx Barker MD Service: Cardiology Author Type: Physician Filed: 05/19/15 1312 Date of Service: 05/19/15 1302 Status: Signed Machine Feeder: Maxx Barker MD (Physician) [facility] Service: Cardiology Initial Consult Note Name of Shoulder Puncher: Maxx Barker MD Date of Admission: 05/19/2015 Reason for Consultation: NSTEMI Requesting Physician: Dr. Acosta, Emergency Department History Obtained From: patient, chart review CHIEF COMPLAINT: Chest pain since 4 PM yesterday. HISTORY OF PRESENT ILLNESS: Mrs. Alejandro is an 84 years old lady who presented to the emergency room at [facility] in [place] complaining of chest pain since 4 PM yesterday when she left her hot tub. The pain is located in the center of the chest, radiating to the back, pressure-like, 8 out of 10 in severity, no specific aggravating or relieving factors, associated with headache, no similar episodes in the past. She was found to have elevated troponins and she was transferred to our hospital where she was found to have high troponins with ischemic ECG changes. She was started on IV heparin and IV nitroglycerin with no resolution of the chest pain. When I saw the patient she was still having chest pain 6 out of 10 with IV nitroglycerin an d IV heparin. REVIEW OF SYSTEMS Negative except for pertinent items noted in HPI. Review of Systems Constitutional: Negative for fatigue. HENT: Negative for nosebleeds. Eyes: Negative for visual disturbance. Respiratory: Negative for cough and shortness of breath. Cardiovascular: Chest pain. No palpitations and leg swelling. Gastrointestinal: Negative for nausea, vomiting, abdominal pain and blood in stool. Genitourinary: Negative for hematuria. Musculoskeletal: Negative for myalgias, back pain and arthralgias. Skin: Negative for color change. Neurological: Negative for dizziness, syncope and numbness. Hematological: Does not bruise/bleed easily. Psychiatric/Behavioral: The patient is not nervous/anxious. PAST MEDICAL & SURGICAL HISTORY Past Medical History Diagnosis Date Joint pain Coronary artery disease Hyperlipidemia Hypertension Neuromuscular disorder (HCC) Thyroid disease History reviewed. No pertinent past surgical history. MEDICATIONS Home Medications (Not in a hospital admission) Inhospital Medications heparin 50 units/mL 12 Units/kg/hr (05/19/15 1154) nitroGLYCERIN in D5W 35 mcg/min (05/19/15 1154) sodium chloride (bolus) Allergies Allergies Allergen Reactions Codeine Itching Sulfa Antibiotics Other (See Comments) Unknown FAMILY HISTORY History reviewed. No pertinent family history. SOCIAL HISTORY History Social History Marital Status: Spouse Name: N/A Number of Children: N/A Years of Education: N/A Occupational History Not on file. Social History Main Topics Smoking status: Never Smoker Smokeless tobacco: Never Used Alcohol Use: No Drug Use: No Sexual Activity: No Other Topics Concern Not on file Social History Narrative No narrative on file PHYSICAL EXAM Vital Signs: BP 122/60 mmHg | Pulse 62 | Temp(Src) 97 F (36.1 C) (Oral) | Resp 18 | Wt 65 kg (143 lb 4.8 oz) | SpO2 97% No intake or output data in the 24 hours ending 05/19/15 1303 Constitutional: Well-developed. Neck: No JVD present. No thyromegaly present. Cardiovascular: Regular rhythm, S1 normal and S2 normal. No murmur heard. Pulses: Carotid pulses are 2+ on the right side, and 2+ on the left side. Radial pulses are 2+ on the right side, and 2+ on the left side. Pulmonary/Chest: Decreased air entry on bilateral bases with bilateral crackles. Abdominal: Soft. No tenderness. Musculoskeletal: No edema. Neurological: Alert. No cranial nerve deficit. Skin: Warm and dry. DATA No results for input(s): NA, K, CO2, BUN, CREATININE, GLUCOSE, CALCIUM, MG in the last 168 hours. No results for input(s): CKTOTAL, CKMB, CKMBINDEX, TROPONINI in the last 168 hours. No results for input(s): WBC, HGB, HCT, MCV, PLT in the last 168 hours. Blood tests from [facility] on May 19, 2015: White blood cell count 11.2, hemoglobin 10.7, platelets 300. INR 0.9. Urea 24, creatinine 1.45, GFR 35, sodium 134, potassium 4.1. AST 91, ALT 20. Troponin 2.62. EKG: May 19, 2015, reviewed personally on May 19, 2015. Sinus rhythm, heart rate 61, n ormal axis, normal P-wave and IL interval, no significant Q waves, normal QRS voltage in dur ation, ST depression in the anterior lateral leads and T-wave inversions, consistent with is chemia. Last Echo: Last stress test: Last cath: Carotid US: AAA screening: Lower extremity US: OTHERS: ASSESSMENT & PLAN Mrs. Alejandro is an 84 years old lady with the following medical conditions: 1. Hypertension 2. Hyperlipidemia 3. Hypothyroidism Presented with chest pain for less than 24 hours. Found to have elevated troponins, ischemic ECG changes. Chest pain not controlled with IV heparin and IV nitroglycerin. She was found to have anemia and elevated creatinine. Impression: High risk non-ST elevation myocardial infarction, DARLIN score 5, with continuous chest pain in spite of IV nitroglycerin and IV heparin. Acute/chronic renal insufficiency. Anemia. Recommendations: Emergent left heart catheterization for continuous chest pain in spite of medical managemen t. Admission to inpatient unit. Thank you for allowing me to participate in the care of this patient. Code Status: No Order Primary Care Physician: ABY Barker MD 05/19/2015 documented in this encount er Consult Notes Felipe Collins MD - 05/20/2015 9:36 AM PSTFormatting of this note might be differ ent from the original. Consults by Felipe Collins DO at 05/20/15 0936 Author: Felipe Collins DO Service: Cardiology Author Type: Physician Filed: 05/20/15 0953 Date of Service: 05/20/1536 Status: Signed Machine Feeder: Felipe Collins DO (Physician) [facility] Service: Cardiology Progress Note Coverage for Dr Barker Hospital Day: LOS: 1 day Post-Op Day: * No surgery found * SUBJECTIVE Patient Summary: 84yo WF, presenting with retrosternal chest heaviness, tightness, di scomfort. Found to have elevated cardiac enzymes, ECG c/w inferior STEMI, transferred from [facility] to [facility], she undergoes PCI/stent of CHLOE (RCA). Tolerated procedure well, no recurrent chest discomfort. Events Overnight: reviewed Scheduled Medications aspirin 81 mg Oral Daily atorvastatin 80 mg Oral Nightly calcium citrate-vitamin D 1 tablet Oral BID WC cholecalciferol 1,000 Units Oral Daily clopidogrel 75 mg Oral Daily cyanocobalamin 1,000 mcg Oral Daily gabapentin 800 mg Oral TID heparin (porcine) 5000 unit/0.5mL 60 Units/kg Intravenous Once levothyroxine 112 mcg Oral QAM AC lisinopril 5 mg Oral Daily metoprolol 25 mg Oral BID pantoprazole 40 mg Oral QAM AC traMADol 50 mg Oral Q8H venlafaxine 25 mg Oral TID Continuous Infusions PRN Medications acetaminophen OR acetaminophen, fentaNYL, heparin (porcine) 5000 unit/0.5mL, heparin (p orcine) 5000 unit/0.5mL, magnesium sulfate OR magnesium sulfate OR magnesium sulfate , morphine OR morphine OR morphine, nitroGLYCERIN, ondansetron OR ondansetron, p hosphorus OR sodium phosphate IVPB 15 mmol OR sodium phosphate IVPB 30 mmol, polyeth ylene glycol potassium OR potassium OR potassium OR potassium chloride OR potassium chlo ride OR potassium chloride, zolpidem OBJECTIVE Vital Signs: BP 121/56 mmHg | Pulse 76 | Temp(Src) 98 F (36.7 C) (Oral) | Resp 18 | Ht 1.626 m (5' 4 ") | Wt 55.6 kg (122 lb 9.2 oz) | BMI 21.03 kg/m2 | SpO2 94% Temp: [97 F (36.1 C)-98.5 F (36.9 C)] 98 F (36.7 C) (05/20 743) BP: (79-134)/(39-62) 121/56 mmHg (05/20 743) Heart Rate: [46-80] 76 (05/20 743) Resp: [16-18] 18 (05/20 743) SpO2: [94 %-100 %] 94 % (05/20 743) Height: [162.6 cm (5' 4")] 162.6 cm (5' 4") (05/19 1550) Weight: [55.6 kg (122 lb 9.2 oz)-65 kg (143 lb 4.8 oz)] 55.6 kg (122 lb 9.2 oz) (05/20 041 1) BMI (Calculated): [23.4] 23.4 (05/19 1550) Intake/Output Summary (Last 24 hours) at 05/20/15 0936 Last data filed at 05/20/15 0636 Gross per 24 hour Intake 3267 ml Output 350 ml Net 2917 ml 55.6 kg (122 lb 9.2 oz) Exam Cardivascular: No JVD. Carotid upstrokes brisk and without bruits. No abdominal bruits. No femoral bruits. Peripheral pulses normal. PMI localized. Auscultated in the sitting and supine position reveals regular rate and rhythm, S1 and S2 normal, 1/6 systolic murmur, rub or gallop Lungs: Clear to auscultation bilaterally, respirations unlabored Extremities: Extremities normal, atraumatic, no cyanosis or edema. Right radial area unr emarkable. Echo, 05/19/2015: postero-basal severe hypokinesis, LVEF 60%, trace MR, trace TR, trace PI. Cath: 05/19/2015: 2V-CAD, moderate disease prox-LAD, 90% osteal D1, LCx non-dominant, mid-RC A occluded. RCA stented (3.0*32mm, 2.25*24mm Promus Premier ELIZABETH's). ECG.05/20/2015: sinus rhythm, Q-wave lead III only, inferior T-wave inversion, low voltage i n limb leads, non-spec ST-T changes anteriorly. Lab, 05/20/2015: CPK peaked at 2250, now down to 1513, K: 4.3, BUN/Cr: 19/1.2 (GFR 46), glu: 85. GFR stable. WBC: 7.7, H/H: 8.7/27.8, plt: 207 Tele: sinus rhythm, rare PVC's. Assessment ASSESSMENT & PLAN 1. STEMI, acute inferior NJ, primary PCI/stent (RCA), LVEF 60%. Currently free of symptoms . ASA/Plavix, metoprolol, lisinopril, atorvastatin, Nitro-stat. Keep in hospital until CPK <500. Increase oral intake, DC IV saline. 2. HTN, HLD, stable. 3. CKD, stable. Code Status: Full Code FELIPE Preet DO EVGENY 05/20/2015 documente d in this encounter ED Notes Conversion Transaction, Provider Unknown - 05/19/2015 11:47 AM PSTFormatting of this note m ight be different from the original. ED Notes by Brittney Calvo RN at 05/19/15 1147 Author: Brittney Calvo RN Service: (none) Author Type: Registered Nurse Filed: 05/19/151146 Date of Service: 05/19/151146 Status: Signed Machine Feeder: Brittney Calvo RN (Registered Nurse) Bed: 03 Expected date: Expected time: Means of arrival: Comments: Helo, chest pain odine z, Laci Larson MD - 05/19/2015 11:39 AM PST ED Provider Notes by Laci Acosta DO at 05/19/15 1139 Author: Laci Acosta DO Service: Emergency Department Author Type: Physician Filed: 05/19/152048 Date of Service: 05/19/151138 Status: Signed Machine Feeder: Laci Acosta DO (Physician) Procedure Orders: 1. Critical Care [[id number]] ordered by Laci Acosta DO at 05/19/15 1321 [facility] Department of Emergency Medicine Pre-arrival Provider: Another ED Does provider wish to be contacted after eval?: No Pertinent History and Concerns: HTN, Hyperlipidema, recent of son. Patient developed chest pain, with radiation mid scapula and RUE at 16:00 05/18/15. Presented at [facility] ED today at 0930. EKG showed T-wave inversions, (RN giving report not sure which leads), Relevant Labs or Studies: Troponin 2.62 Relevant Medications: Heparin bolus 5000 u, Heparin drop @1000/hr; ASA 324 mg; Yonny X3 with Drip at 10 mcg; Fentanyl 200 mcg (05/19/15 1107 : Brittney Calvo RN) 11:56 AM 05/19/2015 History of Present Illness Patient Identification Damir Alejandro is a 84 y.o. female. Patient information was obtained from patient. History/Exam limitations: none. Patient presented to the Emergency Department by: (PCP: ABY RODRÍGUEZ.) Chief Complaint Chief complaint: Chief Complaint Patient presents with Chest Pain Location: cardiovascular Quality: sharp pain and tightness Severity: 6/10 pain Duration: since last night Timing: constant Modifying factors: no previous NJ, began while getting out of her bath tub last night Care prior to arrival: Heparin and Nitro drip via life flight Associated symptoms:none Denies: recent illness, SOB, or any other sx at this time The has a recent travel history of: none The patient has the following new medications:none Past Medical History Diagnosis Date Joint pain Coronary artery disease Hyperlipidemia Hypertension Neuromuscular disorder (HCC) Thyroid disease NSTEMI (non-ST elevated myocardial infarction) (HCC) 05/19/2015 History reviewed. No pertinent past surgical history. Prior to Admission medications Not on File Allergies Allergen Reactions Codeine Itching Sulfa Antibiotics Other (See Comments) Unknown History Social History Marital Status: Spouse Name: N/A Number of Children: N/A Years of Education: N/A Occupational History Not on file. Social History Main Topics Smoking status: Never Smoker Smokeless tobacco: Never Used Alcohol Use: No Drug Use: No Sexual Activity: No Other Topics Concern Not on file Social History Narrative No narrative on file History reviewed. No pertinent family history. Review of Systems Constitutional: Negative for fever, chills Eyes: Negative for vision changes Nose: Negative for congestion, nosebleeds Throat: Negative for sore throat CV/Resp: Positive for chest pain, NSTEMI Positive for shortness of breath Negative for cough GI: Negative for abdominal pain, nausea, vomiting, or diarrhea : Negative for urinary problems Musculoskeletal: Negative for back pain, joint pain Skin: Negative for rash Neuro/Psych: Negative for headache Endo/heme/Lymph: Negative for swollen lymph nodes, easy bruising All other systems reviewed and negative except as noted. Physical Exam BP 130/60 mmHg | Pulse 61 | Temp(Src) 97 F (36.1 C) (Oral) | Resp 18 | Wt 65 kg (143 lb 4.8 oz) | SpO2 96% Vitals Interpretation: WNL. Pulse Oximetry interpretation: Normal General: Alert, no active distress and not requiring any emergent interventions Eyes: Normal inspection, pupils equal and round, non-icteric sclera ENT: Ears normal Nose normal without discharge or drainage Pharynx normal with no exudates or discharge Neck: Normal inspection with no lymphadenopathy Supple Full ROM No carotid bruit with midline trachea Cardiovascular: Normal rate and rhythm, no extra sounds No murmurs rubs or gallops Focal PMI Respiratory: Coarse breath sounds bilaterally No respiratory distress or wheezing Normal excursion No retractions Abdomen: Soft, non-tender, non-distended Normal active bowel sounds Back: Normal inspection Without tenderness or deformity Skin: Color normal Warm and dry Extremities: CRISOSTOMO with equal pulses in the upper and lower extremities bilaterally Neuro: No gross motor/sensory deficit GCS 15 No cerebellar deficits Alert and oriented to person, place, time and situation. Medical Decision Making and Emergency Department Course ED Department Course 11:58 AM. This patient presents with the chief complaint of chest pain. The partial list o f possible emergent diagnoses that the patient requires an evaluation for includes hypercoag ulable state, anemia, dehydration, renal failure, electrolyte changes, unstable angina, aort ic dissection, acute myocardial ischemia, arrhythmia, congestive heart failure, pericarditis , effusions, pulmonary edema and anxiety with hyperventilation. I have ordered a 12 lead EK G, CXR, CBC with diff, CMP, INR, CK, CKMB, and troponin. Clinically, I feel that this patie nt's history is not consistent with an acute cardiac etiology of the chest pain. If the fir st set of cardiac markers is negative, I anticipate that this patient will be discharged bladimir e with close outpatient follow up. . 12:17 PM Troponin resulted at a level of 10.87 which has increased from initial troponin of 2.62. 12:27 PM Based on the troponin level I have sent the patient's pre-arrival documentation an d EKG to roll grinder Dr. Barker. 12:28 PM From pre-arrival labs the patient has a creatinine level of 1.45, BUN of 24, and G FR of 35. 12:[address] Reveles agrees to consult the patient. 12:38 PM Patient recheck. I informed the patient the degree clerk will be coming by to cons ult with her. The patient is still experiencing chest pain at this time. 12:[address] Barker on the floor to consult the patient at this time. I have informed him of the patient's current medications being given. 1:03 PM I have ordered anti-coagulants at this time. 1:09 PM Per nurse the patient's will arrive in about 20 minutes. 1:17 PM CXR resulted which shows mild left basilar atelectasis/aspiration and no pneumothor ax or pleural effusion. 1:[address] Soriano, hospitalist about the patient's case who accepts the patient fo r admission. 1:57 PM Informed the photographic laboratory technician of the patient's aPTT level of 117. Filed Vitals: 05/19/15 1815 05/19/15 1830 05/19/15 1845 05/19/15 1912 BP: 112/56 118/60 106/52 107/54 Pulse: 58 60 76 66 Temp: 98.5 F (36.9 C) TempSrc: Oral Resp: 18 Height: Weight: SpO2: 100% 100% 100% . Records Reviewed Old ED records reviewed (Using the electronic record system of [facility], [place] many reviewed the records with regard to the past medical/surgical history, previous medic ations, and allergies). Nursing notes reviewed for chief complaint, medications, clinical presentation and vital si gns. Laboratory Evaluation Results Procedure Component Value Ref Range Date/Time aPTT [[id number]] (Abnormal) Collected: 05/19/151204 Order Status: Completed Specimen Information: Blood Updated: 05/19/15 1350 APTT 117 (HH) 23 - 32 seconds Protime-INR [[id number]] Collected: 05/19/151204 Order Status: Completed Specimen Information: Blood Updated: 05/19/15 1348 INR 1.1 Basic Metabolic Panel [[id number]] (Abnormal) Collected: 05/19/151204 Order Status: Completed Specimen Information: Blood Updated: 05/19/15 1340 SODIUM 139 135 - 143 mmol/L POTASSIUM 4.4 3.5 - 4.9 mmol/L CHLORIDE 105 99 - 109 mmol/L CO2 26 23 - 32 mmol/L ANION GAP AGAP 12 5 - 20 mmol/L GLUCOSE 95 65 - 99 mg/dL BUN 24 8 - 25 mg/dL CREATININE 1.5 (H) 0.50 - 1.00 mg/dL BUN/CREAT 16 CALCIUM 8.2 (L) 8.5 - 10.5 mg/dL EGFR 35 (L) >60 mL/min/1.73m2 POC cardiac troponin [[id number]] (Abnormal) Collected: 05/19/15 1205 Order Status: Completed Updated: 05/19/15 1217 POC CARDIAC TROPONIN 10.87 (HH) 0.00 - 0.10 ng/mL I personally reviewed the lab results and they have been posted to the chart. Pertinent po sitive and negative findings have been addressed appropriately. Radiology and EKG Evaluation Imaging Results XR Chest AP portable (Final result) Result time: 05/19/15 13:17:07 Final result by Rogers Results In Boo (05/19/15 13:17:07) Impression: 1. Mild left basilar atelectasis/aspiration. No other areas of consolidation. 2. No pneumothorax, no pleural effusion. Narrative: DAMIR ALEJANDRO 1930 84 years XR CHEST 1 VIEW 05/19/2015 1:13 PM INDICATION: Chest pain. COMPARISON: None TECHNIQUE: Chest 1 view, AP view of the chest FINDINGS: Mild left basilar atelectasis/aspiration, no other areas of dense lung consolidation. No pn eumothorax. Upper mediastinal contours and heart size are normal. No acute osseous abnormality. No pleural effusion. EKG from 1148 Normal sinus rhythm at 61. Normal IL and CHRIS Normal QRS and [place] Normal QT and QTc Twave inversion in leads 2,[address] depression in V2, v3, V4 and v5 Twave inversion in v4,v5,v6 Which are persisntent in 2 past EKG's preformed on 05/19/15 [facility] Interpreted by Laci Acosta DO. ED Diagnosis Final diagnosis NSTEMI (non-ST elevated myocardial infarction) ([facility]) Disposition: ED Disposition Admit/Observation Requested Unit:: Cardiac Unit Bed request special needs: None Diagnosis?: chest pain Follow-up Information None Discharge Medications: Current Discharge Medication List This document has been prepared with a voice recognition system. The possibility of "sound alike" medicine worker errors, addition and/or deletions may occur. If there is any question p lease contact the author of the document. Procedures Additional Documentation Critical Care Performed by: LACI ACOSTA Authorized by: MAXX BARKER Total critical care time: 30 minutes Critical care time was exclusive of separately billable procedures and treating other patie nts. Critical care was necessary to treat or prevent imminent or life-threatening deterioration of the following conditions: circulatory failure, sepsis and metabolic crisis. Critical care was time spent personally by me on the following activities: development of t reatment plan with patient or surrogate, discussions with consultants, evaluation of patient 's response to treatment, examination of patient, obtaining history from patient or surrogat e, ordering and performing treatments and interventions, ordering and review of laboratory s tudies, ordering and review of radiographic studies, pulse oximetry, re-evaluation of patien t's condition and review of old charts. Attending Note: Documentation assistance provided by Deisy Winkler (Scribe). Information recorded by the scribe has been reviewed and validated by me. I luiz jacob with its contents. DO Laci Young DO 05/19/152048 documented in this encounter Miscellaneous Notes Plan of Care - Sumit Soriano MD - 05/19/2015 9:02 PM PST Plan of Care by Sumit Soriano MD at 05/19/152101 Author: Sumit Soriano MD Service: Hospitalist Author Type: Physician Filed: 05/19/152102 Date of Service: 05/19/152101 Status: Signed Machine Feeder: Sumit Soriano MD (Physician) [facility] Service: Hospitalist Progress Note/Plan of Care Pt: Damir Alejandro AGE/SEX: 84 y.o. female ROOM: 4440/4440-1 : 1930 PCP: ABY RODRÍGUEZ ADMIT DATE: 05/19/2015 TODAY'S DATE: 05/19/2015 Plan of Care: Pt. Sleeping. No more CP. I HETAL Barragan, he will take over this case. Patient Vitals for the past 24 hrs: BP Temp Temp src Pulse Resp SpO2 Height Weight 05/19/15 1912 107/54 mmHg 98.5 F (36.9 C) Oral 66 18 100 % - - 05/19/15 1845 106/52 mmHg - - 76 - - - - 05/19/15 1830 118/60 mmHg - - 60 - 100 % - - 05/19/15 1815 112/56 mmHg - - 58 - 100 % - - 05/19/15 1800 111/56 mmHg - - 58 - 100 % - - 05/19/15 1745 119/59 mmHg - - 58 - 100 % - - 05/19/15 1730 115/55 mmHg - - 54 - 100 % - - 05/19/15 1715 107/56 mmHg - - 56 18 100 % - - 05/19/15 1700 111/55 mmHg - - 80 16 100 % - - 05/19/15 1655 104/59 mmHg - - 60 - 99 % - - 05/19/15 1650 102/59 mmHg - - 60 - 100 % - - 05/19/15 1645 97/55 mmHg - - 60 - 99 % - - 05/19/15 1638 106/56 mmHg - - 52 - 100 % - - 05/19/15 1634 92/50 mmHg - - 60 - 100 % - - 05/19/15 1630 93/52 mmHg - - 58 - 99 % - - 05/19/15 1625 94/50 mmHg - - 54 - 100 % - - 05/19/15 1620 (!) 88/62 mmHg - - 58 - 99 % - - 05/19/15 1614 91/52 mmHg - - 54 - 100 % - - 05/19/15 1610 90/51 mmHg - - 50 - 100 % - - 05/19/15 1600 (!) 83/47 mmHg - - 50 - - - - 05/19/15 1556 (!) 86/50 mmHg - - 52 - - - - 05/19/15 1555 (!) 82/46 mmHg - - 50 - 97 % - - 05/19/15 1550 (!) 79/44 mmHg 97.4 F (36.3 C) Oral (!) 48 - 98 % 1.626 m (5' 4") 61.78 k g (136 lb 3.2 oz) 05/19/15 1540 (!) 84/48 mmHg - - (!) 46 - 98 % - - 05/19/15 1535 (!) 88/53 mmHg 97.4 F (36.3 C) Oral (!) 49 18 98 % - - 05/19/15 1530 (!) 87/50 mmHg - - - - 98 % - - 05/19/15 1503 (!) 88/39 mmHg - - 52 16 94 % - - 05/19/15 1315 113/57 mmHg - - 56 - 98 % - - 05/19/15 1310 105/58 mmHg - - 60 - 97 % - - 05/19/15 1305 116/56 mmHg - - 60 - 99 % - - 05/19/15 1300 131/55 mmHg - - 64 - 97 % - - 05/19/15 1255 120/60 mmHg - - 62 - 98 % - - 05/19/15 1250 121/56 mmHg - - 64 - 97 % - - 05/19/15 1245 122/60 mmHg - - 62 - 97 % - - 05/19/15 1240 130/57 mmHg - - 66 - 94 % - - 05/19/15 1235 134/61 mmHg - - 70 - 98 % - - 05/19/15 1230 115/55 mmHg - - 58 - 98 % - - 05/19/15 1153 130/60 mmHg 97 F (36.1 C) Oral 61 18 96 % - 65 kg (143 lb 4.8 oz) SUMIT SORIANO MD, FACP 05/19/2015 9:02 PM Dictation software, IdenIve, used which may contain error for similar sounding words even af ter review. Personal communication requested for any clarification. documented in this encounter Plan of Treatment +--------+---------+ + + + | Date | Type | Specialty | Care Team | Description | +--------+---------+ + + + | 11/07/ | Office | Nephrology | Maxx Buchanan MD | | | 2019 | Visit | | [address] [place] | | | | | | [address] | | | | | | [address] | | | | | | | | +--------+---------+ + + + | 01/17/ | Office | Cardiology | Brianna Stewart | | | 2019 | Visit | | [address] | | | | | | [address] | | | | | | [place] [address] | | | | | | [phone] | | | | | | | [...] EXTERNAL | | | | performed at [facility];[address] | | LAB | | | | [address];[place], [place] | | | | | | [address] | | | | + + + [...] | | | | | | ACUTE [place] CKTRP PHONED TO | | | | | | 4RP ALEECE M AT 0625 BY | | | | | | LJREAD BACK RESULTS | | | | | | VERIFIEDTesting | | | | | | performed at [facility] | | | | | | [address];[place], [place] | | | | | | [address] | | | | + + + [...] EXTERNAL | | | | performed at [facility];[address] | | LAB | | | | [address];[place], [place] | | | | | | [address] | | | | + + + [...] [address];[place] [address] | | | | + + + [...] | | | | | | ACUTE [place] CALLED NURSING | | | | | | JENNIFER TARIQ AT | | | | | | 09:17 BY EW READ BACK | | | | | | RESULTS VERIFIEDTesting | | | | | | performed at [facility];[address] | | | | | | [address] [facility];[place], [place] | | | | | | [address] | | | | + + + [...] EXTERNAL | | | | performed at [facility];[address] | | LAB | | | | [address];[place], [place] | | | | | | [address] | | | | + + + [...] | | | ------REPORT ADDENDED------ INDICATIONS Acute [place] / Wall | | | motion abnormailty [...] 0.45 m/s TV | | | Dec Lawrence: 2.68 m/s2 TV Dec Time: 257.33 ms TV E Zack: 0.69 | | | m/s TV E/A Ratio: 1.50 Sheet Manufacturing Supervisor: Authenticated by: Maxx | | | Malini DONOHUE Report Date/Time: 05-21-2015 09:31:01 | | + + + + + | Procedure Note | + + | Rogers Haddad - 11/10/2018 5:37 PM PDT Patient Name: Val ALEJANDRO | | : 1930 Performing Physician: Maxx Barker | | ------REPORT | | ADDENDED------INDICATIONS Acute [place] / Wall motion abnormailty | | CONCLUSIONS [...] mlLAESV Index (A-L): 26.86 ml/m2LAAs A2C: 14.91 ws4NCOVT A-L | | A2C: 42.94 mlLALs A2C: 4.39 cmLAAs A4C: 13.05 gr5HBZTS A-L A4C: 31.55 mlLALs | | A4C: [...] Vmax: 2.19 cm2AVA (VTI): | | 2.30 dp5DFXO Dopp: 4.35 l/kinl9QNBF Dopp: 6.09 l/minHR: 71.65 BPMLVOT maxPG: | [...] 0.82 m/sTV A Zack: 0.45 m/sTV Dec Lawrence: 2.68 | | m/s2TV Dec Time: 257.33 msTV E Zack: 0.69 m/sTV E/A Ratio: 1.50 Sheet Manufacturing Supervisor: | | ASAuthenticated by: Mxax Barker MDReport Date/Time: 05-21-2015 09:31:01 IMPRESSION: 1. | [...] A Zack: 0.45 m/s | |TV Dec Lawrence: 2.68 m/s2 | |TV Dec Time: 257.33 ms | |TV E Zack: 0.69 m/s | |TV E/A Ratio: 1.50 | | | |Sheet Manufacturing Supervisor: | |Authenticated by: Maxx Barker MD | [...] | | | | | performed at [facility] | | | | | | [facility];[place], [place] | | | | | | [address] | | | | + + + [...] EXTERNAL | | | | performed at [facility];[address] | K/uL | LAB | | | | [address];[place] | | | | | | [address] | | | | + + + + + + | Red Blood | 3.27 (L)Comment: Testing | 3.70 - 5.10 | EXTERNAL | | | Cells | performed at [facility];[address] | M/uL | LAB | | | Counted | [address];[place] | | | | | | [address] | | | | + + + + + + | Hemoglobin | 8.7 (L)Comment: Testing | 11.3 - 15.5 | EXTERNAL | | | | performed at [facility];888 | g/dL | LAB | | | | [address];[place] | | | | | | [address] | | | | + + + + + + | Hematocrit, | 27.8 (L)Comment: Testing | 34.0 - 46.0 % | EXTERNAL | | | POC | performed at [facility];[address] | | LAB | | | | [address];[place] | | | | | | [address] | | | | + + + + + + | MCV | 84.9Comment: Testing | 80.0 - 100.0 fl | EXTERNAL | | | | performed at [facility];[address] | | LAB | | | | [address];[place] | | | | | | [address] | | | | + + + + + + | MCH | 26.7 (L)Comment: Testing | 27.0 - 34.0 pg | EXTERNAL | | | | performed at [facility];[address] | | LAB | | | | [address];[place] | | | | | | [address] | | | | + + + + + + | MCHC | 31.5 (L)Comment: Testing | 32.0 - 35.5 | EXTERNAL | | | | performed at [facility];888 | g/dL | LAB | | | | [address];[place] | | | | | | [address] | | | | + + + + + + | RDW-CV | 46.8Comment: Testing | 37 - 53 fl | EXTERNAL | | | | performed at [facility];[address] | | LAB | | | | [address];[place] | | | | | | [address] | | | | + + + + + + | Platelet | 207Comment: Testing | 150 - 400 K/uL | EXTERNAL | | | Count | performed at [facility];[address] | | LAB | | | Plasma | [address];[place] | | | | | | [address] | | | | + + + + + + | MPV | 8.1Comment: Testing | fl | EXTERNAL | | | | performed at [facility];[address] | | LAB | | | | [address];[place] | | | | | | [address] | | | | + + + + + + | Differentia | AUTOMATEDComment: | | EXTERNAL | | | l Type | Testing performed at | | LAB | | | | [facility];[address];[place] [address] | | | | + + + + + + | % Segmented | 73.07Comment: Testing | % | EXTERNAL | | | | performed at [facility];[address] | | LAB | | | Neutrophils | [address];[place] | | | | | | [address] | | | | + + + + + + | % | 15.96Comment: Testing | % | EXTERNAL | | | Lymphocytes | performed at [facility];[address] | | LAB | | | | [address];[place] | | | | | | [address] | | | | + + + + + + | % Monocytes | 9.56Comment: Testing | % | EXTERNAL | | | | performed at [facility];[address] | | LAB | | | | [address];[place] | | | | | | [address] | | | | + + + + + + | % | 1.00Comment: Testing | % | EXTERNAL | | | Eosinophils | performed at [facility];[address] | | LAB | | | | [address];[place] | | | | | | [address] | | | | + + + + + + | % Basophils | 0.41Comment: Testing | % | EXTERNAL | | | | performed at [facility];[address] | | LAB | | | | [address];[place] | | | | | | [address] | | | | + + + + + + | Absolute | 5.60Comment: Testing | 1.90 - 7.40 | EXTERNAL | | | Segmented | performed at [facility];[address] | K/uL | LAB | | | Neutrophils | [address];[place] | | | | | | [address] | | | | + + + + + + | Absolute | 1.22Comment: Testing | 1.00 - 3.90 | EXTERNAL | | | Lymphocytes | performed at [facility];[address] | K/uL | LAB | | | | [address];[place] | | | | | | [address] | | | | + + + + + + | Absolute | 0.73Comment: Testing | 0.00 - 0.80 | EXTERNAL | | | Monocytes | performed at [facility];[address] | K/uL | LAB | | | | [address];[place] | | | | | | [address] | | | | + + + + + + | Absolute | 0.08Comment: Testing | 0.00 - 0.50 | EXTERNAL | | | Eosinophils | performed at [facility];[address] | K/uL | LAB | | | | [address];[place] | | | | | | [address] | | | | + + + + + + | Absolute | 0.03Comment: Testing | 0.00 - 0.10 | EXTERNAL | | | Basophils | performed at [facility];[address] | K/uL | LAB | | | | [address];[place] | | | | | | [address] | | | | + + + [...] + + | Historically converted procedure from [facility] Epic environment | EXTERNAL LAB | + + + + +---------+ + + | Performing | Address | City/State/Zipcode | Phone Number | | Organization | | | | + +---------+ + + | EXTERNAL LAB | | | | + +---------+ + + Protime INR (05/20/2015 5:50 AM PST) + + + [...] | | | 4RP REINIER Chan AT 0620 | | | | | | LJTesting performed at | | | | | | [facility];[address] [place] [address] | | | | | | [facility];[place], [place] | | | | | | [id number] ON 05/20 | | | | | [...] EXTERNAL | | | | performed at [facility];[address] | | LAB | | | | [address];[place], [place] | | | | | | [address] | | | | + + + [...] EXTERNAL | | | | performed at [facility];[address] | | LAB | | | | [address];[place] | | | | | | [address] | | | | + + + [...] EXTERNAL | | | | performed at [facility], [address] | | LAB | | | | [address], | | | | | | [place] [address] | | | | + + + + + + | Triglycerid | 216 (H)Comment: Testing | mg/dL | EXTERNAL | | | es | performed at [facility], [address] | | LAB | | | | [address], | | | | | | [place] [address] | | | | + + + + + + | HDL | 37 (L)Comment: Testing | mg/dL | EXTERNAL | | | | performed at [facility], [address] | | LAB | | | | [address], | | | | | | [place] [address] | | | | + + + + + + | LDL, | 59Comment: Testing | mg/dL | EXTERNAL | | | Calculated | performed at [facility], [address] | | LAB | | | | [address], | | | | | | [place] [address] | | | | + + + [...] EXTERNAL | | | | performed at [facility];888 | mmol/L | LAB | | | | [address];[place] | | | | | | [address] | | | | + + + + + + | K | 4.3Comment: Testing | 3.5 - 4.9 | EXTERNAL | | | | performed at [facility];[address] | mmol/L | LAB | | | | [address];[place] | | | | | | [address] | | | | + + + + + + | Cl | 113 (H)Comment: Testing | 99 - 109 mmol/L | EXTERNAL | | | | performed at [facility];[address] | | LAB | | | | [address];[place] | | | | | | [address] | | | | + + + + + + | CO2 | 24Comment: Testing | 23 - 32 mmol/L | EXTERNAL | | | | performed at [facility];[address] | | LAB | | | | [address];[place] | | | | | | [address] | | | | + + + + + + | Anion Gap | 10Comment: Testing | 5 - 20 mmol/L | EXTERNAL | | | | performed at [facility];[address] | | LAB | | | | [address];[place] | | | | | | [address] | | | | + + + + + + | Glucose, | 85Comment: Testing | 65 - 99 mg/dL | EXTERNAL | | | Fasting | performed at [facility];[address] | | LAB | | | | [address];[place] | | | | | | [address] | | | | + + + + + + | BUN | 19Comment: Testing | 8 - 25 mg/dL | EXTERNAL | | | | performed at [facility];[address] | | LAB | | | | [address];[place] | | | | | | [address] | | | | + + + + + + | Creatinine | 1.2 (H)Comment: Testing | 0.50 - 1.00 | EXTERNAL | | | | performed at [facility];888 | mg/dL | LAB | | | | [address];[place] | | | | | | [address] | | | | + + + + + + | BUN/Creatin | 16Comment: Testing | | EXTERNAL | | | ine Ratio | performed at [facility];[address] | | LAB | | | | [address];[place] | | | | | | [address] | | | | + + + + + + | Calcium | 7.1 (L)Comment: Testing | 8.5 - 10.5 | EXTERNAL | | | | performed at [facility];888 | mg/dL | LAB | | | | [address];[place] | | | | | | [address] | | | | + + + [...] | | | | | | at [facility];[address];[place] [address] | | | | + + + [...] | | LAB | | | | [facility];[address];[place] [address] | | | | + + + [...] | | | | | | ACUTE [place] RESULT READ | | | | | | BACK BY:MARK Lackey/JR ON | | | | | | [id number] AT 0051, | | | | | | VAPTesting performed at | | | | | | [facility];[address];[place] [address] | | | | + + + [...] EXTERNAL | | | | performed at [facility];[address] | | LAB | | | | [address];[place] | | | | | | [address] | | | | + + + [...] | | LAB | | | | [facility];[address] | [address];[place] [address] | | | | + + + [...] | | | | | | ACUTE [place] CALLED TO | | | | | | ZEN Barros ON 4RP AT 1920 | | | | | | BY CD, READ BACKTesting | | | | | | performed at [facility];[address] | | | | | | [facility];[place], [place] | | | | | | [address] | | | | + + + [...] EXTERNAL | | | | performed at [facility];[address] | | LAB | | | | [address];[place], [place] | | | | | | [address] | | | | + + + [...] + + | Historically converted procedure from [facility] environment | EXTERNAL LAB | + [...] radial artery canalized with | | | 6-Bulgarian cylinder sheath. 2.5 mg verapamil, 200 mcg nitroglycerin, | | | 5000 international units of heparin was given through the sheath. | | | Over 260 exchange wire, 5-Bulgarian FL4 diagnostic catheter advanced to | | | the ascending aorta to selectively engage the left main. Contrast was | | | injected. Selective angiogram for the left main, LAD, left | | | circumflex artery performed in different views. Over the guidewire, | | | it was exchanged for a 5-Bulgarian FR-4 diagnostic catheter addressed to | | [...] exchanged | | | for RC-4 SC 6-Bulgarian guide that selectively engaged the RCA. A [...] unit. 5. 2D echocardiogram. Read by MAXX BARKER, | | | 05/19/2015 03:24 P Electronically [...] 1% lidocaine. Right radial artery canalized with 6-Bulgarian cylinder | | sheath. 2.5 mg verapamil, 200 mcg nitroglycerin, 5000 international units | | of heparin was given through the sheath. Over 260 exchange wire, 5-Bulgarian | | FL4 diagnostic catheter advanced to the ascending aorta to selectively | | engage the left main. Contrast was injected. Selective angiogram for the | | left main, LAD, left circumflex artery performed in different views. Over | | the guidewire, it was exchanged for a 5-Bulgarian FR-4 diagnostic catheter | | addressed to [...] the catheter was exchanged for RC-4 SC 6-Bulgarian guide | | that selectively engaged the [...] radial artery canalized with | | | 6-Bulgarian cylinder sheath. 2.5 mg verapamil, 200 mcg nitroglycerin, | | | 5000 international units of heparin was given through the sheath. | | | Over 260 exchange wire, 5-Bulgarian FL4 diagnostic catheter advanced to | | | the ascending aorta to selectively engage the left main. Contrast was | | | injected. Selective angiogram for the left main, LAD, left | | | circumflex artery performed in different views. Over the guidewire, | | | it was exchanged for a 5-Bulgarian FR-4 diagnostic catheter addressed to | | [...] exchanged | | | for RC-4 SC 6-Bulgarian guide that selectively engaged the RCA. A [...] inpatient unit. 5. 2D echocardiogram. Read by Lauren NORMAN MD 05/19/2015 03:24 P Electronically signed by Maxx Barker MD on | | | 05/28/2015 5:10 PM | | + + + + + | Procedure Note | + + | Rogers Haddad - 11/16/2018 3:05 PM PDT | | [...] 1% lidocaine. Right radial artery canalized with 6-Bulgarian cylinder | | sheath. 2.5 mg verapamil, 200 mcg nitroglycerin, 5000 international units | | of heparin was given through the sheath. Over 260 exchange wire, 5-Bulgarian | | FL4 diagnostic catheter advanced to the ascending aorta to selectively | | engage the left main. Contrast was injected. Selective angiogram for the | | left main, LAD, left circumflex artery performed in different views. Over | | the guidewire, it was exchanged for a 5-Bulgarian FR-4 diagnostic catheter | | addressed to [...] the catheter was exchanged for RC-4 SC 6-Bulgarian guide | | that selectively engaged the [...] | | | Clotting | performed at [facility];[address] | seconds | LAB | | | time, POC | [address];[place], [place] | | | | | | [address] | | | | + + + [...] | | | Clotting | performed at [facility];[address] | seconds | LAB | | | time, POC | [address];[place] | | | | | | [address] | | | | + + + [...] - 11/10/2018 5:37 PM PDT DAMIR Garcia [id number] yearsXR CHEST | | 1 VIEW05/19/2015 1:13 [...] + + + | aPTT, | 117 (HH)Comment: CALLED | 23 - 32 seconds | EXTERNAL | | | Patient | PHYSICIANREAD BACK | | LAB | | | | RESULTS | | | | | | MORE IN ED | | | | | | AT 1349 BY CRKTesting | | | | | | performed at [facility];[address] | | | | | | [address];[place] | | | | | | [address] | | | | + + + [...] | | | | | performed at [facility] | | | | | | [facility];[place], [place] | | | | | | [address] | | | | + + + [...] EXTERNAL | | | | performed at [facility];[address] | mmol/L | LAB | | | | [address];[place] | | | | | | [address] | | | | + + + + + + | K | 4.4Comment: Testing | 3.5 - 4.9 | EXTERNAL | | | | performed at [facility];[address] | mmol/L | LAB | | | | [address];[place] | | | | | | [address] | | | | + + + + + + | Cl | 105Comment: Testing | 99 - 109 mmol/L | EXTERNAL | | | | performed at [facility];[address] | | LAB | | | | [address];[place] | | | | | | [address] | | | | + + + + + + | CO2 | 26Comment: Testing | 23 - 32 mmol/L | EXTERNAL | | | | performed at [facility];[address] | | LAB | | | | [address];[place] | | | | | | [address] | | | | + + + + + + | Anion Gap | 12Comment: Testing | 5 - 20 mmol/L | EXTERNAL | | | | performed at [facility];[address] | | LAB | | | | [address];[place] | | | | | | [address] | | | | + + + + + + | Glucose, | 95Comment: Testing | 65 - 99 mg/dL | EXTERNAL | | | Fasting | performed at [facility];[address] | | LAB | | | | [address];[place] | | | | | | [address] | | | | + + + + + + | BUN | 24Comment: Testing | 8 - 25 mg/dL | EXTERNAL | | | | performed at [facility];[address] | | LAB | | | | [address];[place] | | | | | | [address] | | | | + + + + + + | Creatinine | 1.5 (H)Comment: Testing | 0.50 - 1.00 | EXTERNAL | | | | performed at [facility];[address] | mg/dL | LAB | | | | [address];[place] | | | | | | [address] | | | | + + + + + + | BUN/Creatin | 16Comment: Testing | | EXTERNAL | | | ine Ratio | performed at [facility];[address] | | LAB | | | | [address];[place] | | | | | | [address] | | | | + + + + + + | Calcium | 8.2 (L)Comment: Testing | 8.5 - 10.5 | EXTERNAL | | | | performed at [facility];[address] | mg/dL | LAB | | | | [address];[place], [place] | | | | | | [address] | | | | + + + [...] | | | | | | at [facility];[address];[place] [address] | | | | + + + [...] | | | | | ONLY, -COMPUTER ([id number]), | | | | | | subeditor Bonnie Sánchez | | | | | | (15) on 05/19/2015 | | | | | | 4:21:25 PM | | | | + + + + + + + + | Specimen | + + | | + + + + + | Narrative | Performed At | + + + | Historically converted procedure from [facility] environment | EXTERNAL LAB | + [...] + + | Rogers Haddad Conversion - 11/10/2018 5:37 PM PDT This [...]
--- OUTSIDE RECORDS SUMMARY | ~2019-09-12 | XMS | Encounter Summary ---
Demographics + + + | Address | [address] | | | [place] [address] | + + + | Home Phone | | + + + | Preferred Language | Unknown | + + + | Marital Status | | + + + | Catholic Affiliation | Unknown | + + + | Race | Unknown | + + + | Ethnic Group | Unknown | + + + Author + + + | Author | [facility] | | | and [place] | + + + | Organization | [facility] | | [...] Team Providers + +------+ + | Care Flight Attendant/Inflight Manager Name | Role | Phone | [...] [address] | | | | | [address] | [place] [address] | | | | | [place] [address] | | | | | | [phone] | | | +--------+ + + + [...] 2019 | Visit | | [address] [facility] [address] | | | | | | [address] | | | | | | [address] | | | | | | | | +--------+---------+ + + + | 01/17/ | Office | Cardiology | Brianna Stewart | | | 2019 | Visit | | [address] | | | | | | [address] | | | | | | [place] [address] | | | | | | [phone] | | | | | | | [...]
--- OUTSIDE RECORDS SUMMARY | ~2019-09-12 | XMS | Clinical Summary ---
Demographics + + + | Address | [address] | | | [place] [address] | + + + | Home Phone | | + + + | Preferred Language | Unknown | + + + | Marital Status | | + + + | Yarsanism Affiliation | Unknown | + + + [...] Providers + +------+ + | Care Director Institution Name | Role | Phone | + +------+ + | Luanne Love | PCP | | | PA | | | + +------+ + Allergies + + + + + + | Active Allergy | Reactions | Severity | Noted | Comments | | | | | Date | | + + + + + + | Codeine | Itching | Medium | 05/19/19 | Itching | | | | | 16 | | + + + + + + | Gabapentin | Nausea Only | Low | | Nausea | + + + + + + | Sulfa Antibiotics | Hives, Rash | High | 05/19/19 | | | | | | 16 | | + + + + + + Medications + + + +---------+------+------+-------+ | Medication | Sig | Dispensed | Refills | Star | End | Statu | | | | | | t | Date | s | | | | | | Date | | | + + + +---------+------+------+-------+ | mirtazapine | Take 1 tablet by | | 0 | 12/27 | | Activ | | (REMERON) 15 MG | mouth daily. | | | 11/15 | | e | | tablet | | | | 18 | | | + + + +---------+------+------+-------+ | isosorbide | Take 30 mg by mouth | | 0 | | | Activ | | mononitrate (IMDUR) | Daily. | | | | | e | | 30 mg ER tablet | | | | | | | + + + +---------+------+------+-------+ | nitroglycerin | Place 0.4 mg under | | 0 | 02/2 | | Activ | | (NITROSTAT) 0.4 mg | the tongue as | | | 3/20 | | e | | SL tablet | needed. | | | 16 | | | + + + +---------+------+------+-------+ | atorvaSTATin | Take 1 tablet by | 90 | 3 | 01/2 | | Activ | | (LIPITOR) 40 mg | mouth nightly. | tablet | | 7/20 | | e | | tablet | | | | 20 | | | + + + +---------+------+------+-------+ | metoprolol | Take 1 tablet by | 60 | 11 | 01/2 | | Activ | | tartrate (LOPRESSOR) | mouth 2 times daily. | tablet | | 7/20 | | e | | 25 mg tablet | | | | 20 | | | + + + +---------+------+------+-------+ | clopidogrel | Take 1 tablet by | 90 | 3 | 01/2 | | Activ | | (PLAVIX) 75 mg | mouth Daily. | tablet | | 7/20 | | e | | tablet | | | | 20 | | | + + + +---------+------+------+-------+ | dorzolamide | Place 1 drop into | | 0 | | | Activ | | (TRUSOPT) 2% | the left eye 2 times | | | | | e | | ophthalmic solution | daily. | | | | | | + + + +---------+------+------+-------+ | famotidine | Take 20 mg by mouth | | 0 | | | Activ | | (PEPCID) 20 mg | 2 times daily. | | | | | e | | tablet | | | | | | | + + + +---------+------+------+-------+ | levothyroxine | Take 125 mcg by | | 0 | | | Activ | | (SYNTHROID) 125 mcg | mouth every morning | | | | | e | | tablet | (before breakfast). | | | | | | + + + +---------+------+------+-------+ | sucralfate | Take 1 g by mouth 4 | | 0 | | | Activ | | (CARAFATE) 1 g | times daily. 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 | 04/17/2019 | + + + | Ischemic cardiomyopathy | 04/17/2019 | + + + | S/P drug eluting coronary stent placement | 02/07/2018 | + + + | History of GI diverticular bleed | 02/07/2018 | + + + | Chronic kidney disease, stage III (moderate) | 09/23/2015 | + + + | Coronary artery disease | 06/19/2015 | + + + | History of non-ST elevation myocardial infarction (NSTEMI) | 05/19/2015 | + + + | Mixed hyperlipidemia | 05/19/2015 | + + + | Hypothyroid | 05/19/2015 | + + + Resolved Problems + + + + | Problem | Noted | Resolved | | | Date | Date | + + + + | Essential hypertension | 05/19/19 | | | | 16 | 0 | + + + + Encounters +--------+ + + + + | Date | Type | Specialty | Care Team | Description | +--------+ + + + + | 08/06/ | Orders Only | Nephrology | Maxx Buchanan MD | | | 2019 | | | | | +--------+ + + + + | 08/06/ | Documentati | Nephrology | Mercado, | Other (CT scan | | 2019 | on | | [address] | abdomen 08/04/19) | | | | | Asic Design Engineer | | +--------+ + + + + | 08/03/ | Office | Nephrology | Maxx Buchanan MD | Chronic kidney | | 2020 | Visit | | | disease, stage III | | | | | | (moderate) (Primary | | | | | | Dx); Generalized | | | | | | abdominal pain; | | | | | | Electrolyte | | | | | | imbalance risk | +--------+ + + + + | 08/03/ | Orders Only | Nephrology | Maxx Buchanan MD | Chronic kidney | | 2020 | | | | disease, stage III | | | | | | (moderate) (Primary | | | | | | Dx); Electrolyte | | | | | | imbalance risk; | | | | | | Abdominal pain, | | | | | | unspecified | | | | | | abdominal location | +--------+ + + + + | 08/03/ | Documentati | Nephrology | Mercado, | Results (08/04/19) | | 2020 | on | | [address] | | | | | | [employer]ic Design Engineer | | +--------+ + + + + | 07/12/ | Office | Cardiology | [place] | Coronary artery | | 2020 | Visit | | [address] | disease involving | | | | | | te-moak coronary | | | | | | artery of te-moak | | | | | | heart without angina | | | | | | pectoris (Primary | | | | | | Dx); S/P drug | | [...] | | | | | hypokinesis | +--------+ + + + + | 06/27/ | Orders Only | Nephrology | Maxx Buchanan MD | Essential | | 2020 | | | | hypertension | | | | | | (Primary Dx); | | | | | | Chronic kidney | | | | | | disease, stage III | | | | | | (moderate) | +--------+ + + + + from Last 3 Months Family History + + +------+ + | [...] | | + +------+ + + | Brother | | | | + +------+ + + | [...] | Respiratory Rate | 18 | 02/07/2018 10:13 AM | | | | | PST [...] | | + + + + + Plan of Treatment +--------+---------+ + + + | Date | Type | Specialty | Care Team | Description | +--------+---------+ + + + | 11/07/ | Office | Nephrology | Maxx Buchanan MD | | | 2019 | Visit | | [address] | | | | | | [facility] | | | | | | [address] | | | | | | | | +--------+---------+ + + + | 01/17/ | Office | Cardiology | [place] | | | 2019 | Visit | | [address] | | | | | | [address] | | | | | | [place] [address] | | | | | | [phone] | | | | | | | | +--------+---------+ + + + + + +-------+ + | Health Maintenance | Due Date | Last | Comments | | | | Done | | + + +-------+ + | Vaccine: | | | | | Dtap/Tdap/Td (1 - | 2 | | | | Tdap) | | | | + + +-------+ + | Vaccine: Zoster (1 | | | | | of 2) | 3 | | | + + +-------+ + | Vaccine: | | | | | Pneumococcal 65+ (1 | 8 | | | | of 1 - PPSV23) | | | | + + +-------+ + | Adult Annual | | | | | Wellness Visit | 9 | | | + + +-------+ + | Vaccine: Influenza | | | | | (Season Ended) | 0 | | | + + +-------+ + Procedures + +--------+ + + + | Procedure Name | Priori | Date/Time | Associated Diagnosis | Comments | | | ty | | | | + +--------+ + + + | LABS - EXTERNAL SCAN | | 08/04/2019 | | Results for this | | | | 12:00 AM | | procedure are in the | | | | PDT | | results section. | + +--------+ + + + | LABS - EXTERNAL SCAN | | 08/04/2019 | | Results for this | | | | 12:00 AM | | procedure are in the | | | | PDT | | results section. | + +--------+ + + + | CBC NO DIFFERENTIAL | Routin | 08/04/2019 | | Results for this | | | e | | | procedure are in the | | | | | | results section. | + +--------+ + + + | BASIC METABOLIC | Routin | 08/04/2019 | | Results for this | | PANEL | e | | | procedure are in the | | | | | | results section. | + +--------+ + + + | URIC ACID | Routin | 08/04/2019 | | Results for this | | | e | | | procedure are in the | | | | | | results section. | + +--------+ + + + | IMAGING REPORT - | | 08/04/2019 | | Results for this | | EXTERNAL SCAN | | 12:00 AM | | procedure are in the | | | | PDT | | results section. | + +--------+ + + + | ECG 12 LEAD | Routin | 07/13/2019 | Coronary artery | Results for this | | | e | 1:26 PM | disease involving | procedure are in the | | | | PDT | te-moak coronary | results section. | | | | | artery of te-moak | | | | | | heart [...] | + +--------+ + + + | LABS - EXTERNAL SCAN | | 07/03/2019 | | Results for this | | | | 12:00 AM | | procedure are in the | | | | PDT | | results section. | + +--------+ + + + from Last 3 Months Results IMAGING REPORT - EXTERNAL SCAN (08/04/2019 12:00 AM PDT) + + + | Narrative | Performed At | + + + | Ordered by an | | | unspecified provider. | | + + + LABS - EXTERNAL SCAN (08/04/2019 12:00 AM PDT)Only the most recent of 3 results within the time period is included. + + + | Narrative | Performed At | + + + | Ordered by an | | | unspecified provider. | | + + + CBC with Manual Differential (08/04/2019) + + + + + + | Component | Value | Ref Range | Performed | Pathologist | | | | | At | Signature | + + + + + + | WBC | 6.4 | 4.5 - 11.0 | | | + + + + + + | RBC | 4.15 | 3.80 - 5.10 | | | | | | M/uL | | | + + + + + + | Hemoglobin | 13.3 | 12 - 16 | | | + + + + + + | Hematocrit, | 38.1 | 35.0 - 45.0 % | | | | POC | | | | | + + + + + + | MCH | 30.0 | 27.0 - 33.0 pg | | | + + + + + + | MCV | 91.8 | 81.0 - 99.0 fL | | | + + + + + + | MCHC | 32.0 | 30.0 - 36.0 | | | | | | g/dL | | | + + + + + + | Platelet | 27 (A) | 140 - 440 | | | | Count | | | | | | Plasma | | | | | + + + + + + | RDW | 12.9 | 10.5 - 15.0 | | | + + + + + + | BAL | 64 | 39 - 80 % | | | | Neutrophils | | | | | | % | | | | | + + + + + + | % | 22.54 (A) | 24 - 44 | | | | Lymphocytes | | | | | + + + + + + | Monocyte % | 11.8 | 0 - 12 | | | + + + + + + | BAL | 1 | 0 - 6 % | | | | Eosinophils | | | | | | % | | | | | + + + + + + | BF % | 1 | 0 - 2 % | | | | Basophils | | | | | + + + + + + + + | Specimen | + + | Blood | + + Uric Acid (08/04/2019) + +-------+ + + + | Component | Value | Ref Range | Performed | Pathologist | | | | | At | Signature | + +-------+ + + + | Uric Acid | 5.1 | 2.3 - 6.6 | | | + +-------+ + + + + + | Specimen | + + | Blood | + + Basic Metabolic Panel (08/04/2019) + + + + + + | Component | Value | Ref Range | Performed | Pathologist | | | | | At | Signature | + + + + + + | Na | 140 | 132 - 143 | | | | | | mmol/L | | | + + + + + + | K | 4.0 | 3.6 - 5.1 | | | | | | mmol/L | | | + + + + + + | Cl | 106 | 95 - 112 mmol/L | | | + + + + + + | CO2 | 26 | 19 - 31 mmol/L | | | + + + + + + | Anion Gap | 12 | 7 - 21 mmol/L | | | + + + + + + | Glucose | 106 (A) | 70 - 100 mg/dL | | | + + + + + + | Calcium | 9.36 | 8.5 - 10.3 | | | + + + + + + | BUN | 23 | 6 - 23 mg/dL | | | + + + + + + | Creatinine | 1.44 (A) | 0.70 - 1.11 | | | | | | mg/dL | | | + + + + + + | Estimated | 35.0 (A) | 60.0 - 140.0 | | | | GFR | | mL/min/1.73m2 | | | + + + + + + | BUN/Creatin | 16 | 6.0 - 28.6 | | | | ine Ratio | | | | | + + + + + + + + | Specimen | + + | Blood | + + ECG 12 lead (07/13/2019 1:26 PM PDT) [...] REESE | | | | | | [place] ([id number]) on | | | | | | [...] | | | + +---------+ + + from Last 3 Months Insurance + +--------+ +--------+ +---------+--------+ | Payer | Benefi | Subscriber | Effect | Phone | Address | Type | | | t Plan | ID | casimiro | | | | | | / | | Dates | | | | | | Group | | | | | | + +--------+ +--------+ +---------+--------+ | MEDICARE | MEDICA | [id number] | 09/26/18 | [phone] | | Medica | | | RE | | 98-Pre | 5 | | re | | | PART A | | sent | | | | | | AND B | | | | | | + +--------+ +--------+ +---------+--------+ | [employer] [employer] | AMERIC | [id number] | | [phone] | | Indemn | | | AN | 8G | 018-Pr | 0 | | ity | | | REPUBL | | esent | | | | | | IC | | | | | | | | MDCR | | | | | | | | SUPPL | | | | | | + +--------+ +--------+ +---------+--------+ | MEDICARE | MEDICA | [id number] | 09/26/18 | [phone] | | Medica | | | RE | | 98-Pre | 5 | | re | | | PART A | | sent | | | | | | AND B | | | | | | + +--------+ +--------+ +---------+--------+ | MEDICARE SUPPLEMENT | MEDICA | [id number] | 09/27/19 | [phone] | | Indemn | | OTHER | RE | 8 | 04-Pre | 0 | | ity | | | SUPPLE | | sent | | | | | | MENT | | | | | | | | OTHER | | | | | | + +--------+ +--------+ +---------+--------+ + +--------+ +--------+ + + | Guarantor Name | Accoun | Relation to | Date | Phone | Billing Address | | | t Type | Patient | of | | | | | | | | | | + +--------+ +--------+ + + | Shoaib Juarez | Person | Self [birth year] | [address] | | | al/Fam | | 1931 | [phone] | [place], [place] | | | manuel | | | 4 (Home) | [address] | + +--------+ +--------+ + + | Shoaib Juarez | Person | Self [birth year] | [address] | | | al/Fam | | 1931 | [phone] | [place], [place] | | | manuel | | | 4 (Home) | [address] | + +--------+ +--------+ + + Advance Directives + + + + + | Type | Date Recorded | Patient | Explanation | | | | [employer] Ch[employer] Director | | + + + + + | Power of | | | | | Director Multimedia | | | | + + + + + | Advance | | | | | Directive | | | | + + + + +
--- OUTSIDE RECORDS SUMMARY | ~2019-09-12 | XMS | Encounter Summary ---
Demographics + + + | Address | [address] | | | [place] [address] | + + + | Home Phone [...] Team Providers + +------+ + | Care Heavy Equipment Rental Associate Name | Role | Phone | + [...] Required | Required | | chronic | RAILROAD WHEELS AND AXLE INSPECTOR [address] | | | | | kidney | [address] | [address] | | | | | disease | [address] | [place], | | | | | ([facility]) | [place], [place] | [place] [address] | | | | | | [address] | Phone: | | | | | | Phone: | [phone] | | | | | | [phone] | Fax: | | | | | | Fax: | [phone] | | | | | | [phone] | | + + + + + + + Reason for Visit + + + | Reason | Comments | + + + | Follow-up | 3 week | + + + Encounter Details +--------+---------+ + + + | Date | Type | Department | Care Team | Description | +--------+---------+ + + + | 05/15/ | Office | [facility] | Brianna Stewart | Coronary artery | | 2020 | Visit | CARDIOLOGY [place] | [address] | disease involving | | | | [address] | [address] | ewiiaapaayp coronary | | | | [address] | [place] [address] | artery of ewiiaapaayp | | | | [place], [place] | [phone] | heart without angina | | | | [address] | | pectoris (Primary | | | | [phone] | | Dx); S/P drug | | [...] Instructions Patient Instructions Brianna Stewart FNP - 05/15/2019 2:00 PM PSTYour [...] history, as she reports that her m foreston can be poor.. Today, I reviewed all [...] as I have not seen her in [facility] years. On that visit I had her follow-up with her custom framing specialist to get alternative eyedrops to atenolol, which [...] home with instructions to follow-up with her machine icer Her current and previous testing and procedures [...] to absence of adequate TR jet. Mild NV. No pericardial or pleural effusion. IVC WNL, [...] previously , Otherwise stable rate 61 bpm, NV 134 ms, QRS 92 ms, QTC 430 ms EK11/27: ([facility]). Sinus rhythm with sinus arrhythmia, PVC's. T-wave inv ersion to inferior leads and lateral leads, less pronounced than EKG done in June and in e office today. Rate 67 bpm, NV 146 ms, QRS 82 ms, QTC 450 ms (personally reviewed by me grisel d compared to previous EKG's) EK: Sinus bradycardia, stable T-wave inversion to inferior and lateral leads , rate 52 bpm, NV 142 ms, QRS 86 ms, QTC 427 ms (personally reviewed by me and compared to previous EKG's) EK02/07/2018: Normal sinus rhythm, stable T-wave inversion to inferolateral leads. Rate 64 bpm, NV 138 ms, QRS 90 ms, QTC 441 ms (personally reviewed by me and compared to previo us EKG 02/01/2017, rate is faster, otherwise similar morphology) EK02/11/2019:( [facility] ER) Normal sinus rhythm, nonspecific ST-T wave abnormality to infero lateral leads, stable. Rate 64 bpm, NV 136 ms, QRS 106 ms, QTC 437 ms, tracing personally r eviewed by me EK04/24/2019: Sinus bradycardia, ST and T wave abnormalities to inferior and anterolatera l leads, similar to previous EKG's, rate 6 bpm, NV 150 ms, QRS 80 ms, QTC 441 [...] HDL 61.9 , LDL 85 Labs: 02/11/2019: [facility] ER: CMP: Sodium 141, potassium 3.5, chloride [...] and treatment of her renal function to jeweler apprentice, Dr. Buchanan. Her thyroid function was also [...] pro viders. 1. Coronary artery disease involving ewiiaapaayp coronary artery of ewiiaapaayp heart without angina pectoris 2. S/P drug [...] Placed This Encounter Procedures Ambulatory Referral to [facility] Nephrology The following portions of [...] contain inadvertent rec ognition errors. Mimi CHAVEZ [facility] Cardiology 05/15/2019 Pineda figueredo in this encounter Plan of Treatment +--------+---------+ + + + | Date | Type | Specialty | Care Team | Description | +--------+---------+ + + + | 11/07/ | Office | Nephrology | Maxx Buchanan MD | | | 2019 | Visit | | [address] [facility] [address] | | | | | | [address] [place] | | | | | | [address] | | | | | | | | +--------+---------+ + + + | 01/17/ | Office | Cardiology | Brianna Stewart | | | 2019 | Visit | | [address] | | | | | | [address] | | | | | | [place] [address] | | | | | | [phone] | | | | | | | | +--------+---------+ + + + + + +--------+ + + | Name | Type | Priori | Associated Diagnoses | Order Schedule | | | | ty | | | + + +--------+ + + | Ambulatory Referral | Outpatient | Routin | Chronic kidney | Ordered: 05/15/2019 | | to [facility] Nephrology | Referral | e | disease, stage III | | | | | | (moderate) | | + + +--------+ + + documented as of this encounter Visit Diagnoses + + | Diagnosis | + + | Coronary artery disease involving ewiiaapaayp coronary artery of ewiiaapaayp heart without | | angina pectoris - [...]
--- OUTSIDE RECORDS SUMMARY | ~2019-09-12 | XMS | Encounter Summary ---
Demographics + + + | Address | [address] | | | [place] [address] | + + + | Home Phone | | + + + | Preferred Language | Unknown | + + + | Marital Status | | + + + | Taoism Affiliation | Unknown | + + + | Race | Unknown | + + + | Ethnic Group | Unknown | + + + Author + + + | Author | [facility] | | | and [place] | + + + | Organization | [facility] | | | [...] Team Providers + +------+ + | Care Flotation Operator Name | Role | Phone | + +------+ + | Luanne Love | PCP | | | PA | | | + +------+ + Encounter Details +--------+ + + + + | Date | Type | Department | Care Team | Description | +--------+ + + + + | 06/27/ | Orders Only | [facility] | Maxx Buchanan MD | Essential | | 2020 | | NEPHROLOGY [place] | [address] | hypertension | | | | [address] | [address] [place], [place] | (Primary Dx); | | | | [address] | [address] | Chronic kidney | | | | [place], [place] | | disease, stage III | | | | [address] | | (moderate) | | | | [phone] | | | +--------+ + + + [...] 2020 | Visit | | [address] [facility] | | | | | | [address] [place], [place] | | | | | | [address] | | | | | | | | +--------+---------+ + + + | 01/17/ Office | Cardiology | Brianna Stewart | | | 2019 | Visit | | [address] | | | | | | [address] | | | | | | [place] [address] | | | | | | [phone] | | | | | | | [...]
--- OUTSIDE RECORDS SUMMARY | ~2019-09-12 | XMS | Encounter Summary ---
Demographics + + + | Address | [address] | | | [place] [address] | + + + | Home Phone | | + + + | Preferred Language | Unknown | + + + | Marital Status | | + + + | Oriental Orthodox Affiliation | Unknown | + + + | Race | Unknown | + + + | Ethnic Group | Unknown | + + + Author + + + | Author | [facility] | | | and [place] | + + + | Organization | [facility] | | | [...] Team Providers + +------+ + | Care Machine Hose Cutter Name | Role | Phone | + [...] | Radiology | Diagnoses | Chanel | [facility] [address] | | | | | Stage 3 | Maxx H, MD | [address] | | | | | chronic | [address] | [place], [place] | | | | | kidney | [address] | [address] | | | | | disease | [place], | Phone: | | | | | ([facility]) | [place] [address] | [phone] | | | | | Electrolyte | Phone: | Fax: | | | | | imbalance | [phone] | [phone] | | | | | risk | Fax: | | | | | | Abdominal | [phone] | | | | | | pain, [...] + | 05/08/ | Orders Only | [facility] | Maxx Buchanan MD | Chronic kidney | | 2020 | | NEPHROLOGY [place] | [address] | disease, stage III | | | | [address] | [address] [place], [place] | (moderate) (Primary | | | | [address] [place], [place] | [address] | Dx); Electrolyte | | | | [address] | | imbalance risk; | | | | [phone] | | Abdominal pain, | | | [...] | | | | | | [facility] | | | | | | [address] | | | | | | | | +--------+---------+ + + + | 01/17/ | Office | Cardiology | Brianna Stewart | | | 2019 | Visit | | [address] | | | | | | [address] | | | | | | [place] [address] | | | | | | [phone] | | | | | | | [...]
--- OUTSIDE RECORDS SUMMARY | ~2019-09-12 | XMS | Encounter Summary ---
Demographics + + + | Address | [address] | | | [place] [address] | + + + | Home Phone | | + + + | Preferred Language | Unknown | + + + | Marital Status | | + + + | Baptist Affiliation | Unknown | + + + | Race | Unknown | + + + | Ethnic Group | Unknown | + + + Author + + + | Author | [facility] | | | and [place] | + + + | Organization | [facility] | | | [...] Team Providers + +------+ + | Care Earrings Fabricator Name | Role | Phone | + +------+ + | Luanne Love | PCP | | | PA | | | + +------+ + Reason for Visit + +--------+ + | Reason | Onset | Comments | | | Date | | + +--------+ + | Medication Refill | 02/08/ | | | | 2019 | | + +--------+ + Encounter Details +--------+--------+ + + + | Date | Type | Department | Care Team | Description | +--------+--------+ + + + | 02/08/ | Refill | [facility] | Brianna Stewart | Medication Refill | | 2019 | | CARDIOLOGY [place] | [address] | | | | | [address] | [address] | | | | | [address] | [place] [address] | | | | | [place] | [phone] | | | | | [address] | | | | | | [phone] | | | +--------+--------+ + + + [...] + + documented as of this encounter Miscellaneous Notes Telephone Encounter - Brianna Stewart FNP - 02/08/2019 2:36 PM PSTNot seen since 2017, no further refills until seen in clinic documented in this encounter Plan of Treatment +--------+---------+ + + + | Date | Type | Specialty | Care Team | Description | +--------+---------+ + + + | 11/07/ | Office | Nephrology | Maxx Buchanan MD | | | 2020 | Visit | | [address] [facility] | | | | | [address] [place], [place] | | | | | | [address] | | | | | | | | +--------+---------+ + + + | 01/17/ | Office | Cardiology | Brianna Stewart | | | 2020 | Visit | | [address] | | | | | | [address] | | | | | | [place] [address] | | | | | | [phone] | | | | | | | | +--------+---------+ + + + documented as of this encounter Visit Diagnoses Not on filedocumented in this encounter"
--- OUTSIDE RECORDS SUMMARY | ~2019-09-12 | XMS | Encounter Summary ---
Demographics + + + | Address | [address] | | | [place] [address] | + + + | Home Phone | | + + + | Preferred Language | Unknown | + + + | Marital Status | | + + + | Jew Affiliation | Unknown | + + + | Race | Unknown | + + + | Ethnic Group | Unknown | + + + Author + + + | Author | [facility] | | | and [place] | + + + | Organization | [facility] | | [...] Team Providers + +------+ + | Care Dental Patient Coordinator Name | Role | Phone | [...] + + | 08/03/ | Documentati | [facility] | Mercado, | Results (08/04/19) | | 2020 | on | NEPHROLOGY [place] | [facility] | | | | | [address] | Manager Ccu | | | | | [address] [facility], [place] | | | | | | [address] | | | | | | [phone] | | | +--------+ + + + [...] | | | | | | [address] | | | | | | [address] | | | | | | | | +--------+---------+ + + + | 01/17/ | Office | Cardiology | TerryBrianna | | | 2019 | Visit | | [address] | | | | | | [address] | | | | | | [place] [address] | | | | | | [phone] | | | | | | | [...]
--- OUTSIDE RECORDS SUMMARY | ~2019-09-12 | XMS | Encounter Summary ---
Demographics + + + | Address | [address] | | | [place] [address] | + + + | Home Phone | | + + + | Preferred Language | Unknown | + + + | Marital Status | | + + + | Alevism Affiliation | Unknown | + + + | Race | Unknown | + + + | Ethnic Group | Unknown | + + + Author + + + | Author | [facility] | | | and [place] | + + + | Organization | [facility] | | [...] Team Providers + +------+ + | Care Sausage Machine Operator Name | Role | Phone | + +------+ + | Luanne Love | PCP | | | PA | | | + +------+ + Encounter Details +--------+ + + + + | Date | Type | Department | Care Team | Description | +--------+ + + + + | 02/01/ | Orders Only | [facility] | Brianna Stewart | | | 2017 | | CARDIOLOGY [place] | Stefani, [address] | | | | | [address] | [address] | | | | | [address] | [place] [address] | | | | | [place] | [phone] | | | | | [address] | | | | | | [phone] | | | +--------+ + + + [...] [place] | | | | | | [id number] | | | | | | | | +--------+---------+ + + + | 01/17/ | Office | Cardiology | Brianna Stewart | | | 2019 | Visit | | [address] | | | | | | [address] | | | | | | [place] [address] | | | | | | [phone] | | | | | | | | +--------+---------+ + + + documented as of this encounter Visit Diagnoses Not on filedocumented in this encounter"
--- OUTSIDE RECORDS SUMMARY | ~2019-09-12 | XMS | Encounter Summary ---
Demographics + + + | Address | [address] | | | [place] [address] | + + + | Home Phone | | + + + | Preferred Language | Unknown | + + + | Marital Status | | + + + | Temple Affiliation | Unknown | + + + | Race | Unknown | + + + | Ethnic Group | Unknown | + + + Author + + + | Author | [facility] | | | and [place] | + + + | Organization | [facility] | | [...] Team Providers + +------+ + | Care Co Supervisor Grounds And Landscape Name | Role | Phone | + +------+ + | Luanne Love | PCP | | | PA | | | + +------+ + Encounter Details +--------+ + + + + | Date | Type | Department | Care Team | Description | +--------+ + + + + | 07/06/ | Orders Only | [facility] | Brianna Stewart | | | 2018 | | CARDIOLOGY [place] | Stefani, DIRECTOR BUSINESS TRAVEL [address] | | | | | [address] | [address] | | | | | [address] | [place] [address] | | | | | [place] | [phone] | | | | | [address] | | | | | | [phone] | | | +--------+ + + + [...] [place] | | | | | | [id number] | | | | | | | | +--------+---------+ + + + | 01/17/ | Office | Cardiology | Brianna Stewart | | | 2019 | Visit | | [address] | | | | | | [address] | | | | | | [place] [address] | | | | | | [phone] | | | | | | | | +--------+---------+ + + + documented as of this encounter Visit Diagnoses Not on filedocumented in this encounter"
--- OUTSIDE RECORDS SUMMARY | ~2019-09-12 | XMS | Encounter Summary ---
Demographics + + + | Address | [address] | | | [place] [address] | + + + | Home Phone [...] Team Providers + +------+ + | Care Route Rider Supervisor Name | Role | Phone | + +------+ + | Luanne Love | PCP | | | PA | | | + +------+ + Encounter Details +--------+ + + + + | Date | Type | Department | Care Team | Description | +--------+ + + + + | 09/09/ | Orders Only | [facility] | Aidan Becker, | | | 2018 | | CARDIOLOGY [place] | [address] | | | | | [address] | [place] [address] [place], [place] | | | | | [place], [place] | [address] | | | | | [address] | | | | | | [phone] | | | +--------+ + + + [...] [place] | | | | | | [id number] | | | | | | | | +--------+---------+ + + + | 01/17/ | Office | Cardiology | Brianna Stewart | | | 2020 | Visit | | [address] | | | | | | [address] | | | | | | [place] [address] | | | | | | [phone] | | | | | | | | +--------+---------+ + + + documented as of this encounter Visit Diagnoses Not on filedocumented in this encounter"
--- OUTSIDE RECORDS SUMMARY | ~2019-09-12 | XMS | Encounter Summary ---
Demographics + + + | Address | [address] | | | [place] [address] | + + + | Home Phone [...] + | Organization | [facility] | [...] Team Providers + +------+ + | Care Motion Picture Photographer Name | Role | Phone | + +------+ + | Luanne Love | PCP | | | PA | | | + +------+ + Encounter Details +--------+ + + + + | Date | Type | Department | Care Team | Description | +--------+ + + + + | 05/21/ | Orders Only | [facility] | Maxx Nayak MD | | | 2015 | | CARDIOLOGY [place] | [address] | | | | | [address] | [place] [address] | | | | | [place], [place] | [phone] | | | | | [address] | | | | | | [phone] | | | +--------+ + + + [...] [place] | | | | | | [address] | | | | | | | | +--------+---------+ + + + | 01/17/ | Office | Cardiology | Brianna Stewart | | | 2020 | Visit | | [address] | | | | | | [address] | | | | | | [place] [address] | | | | | | [phone] | | | | | | | | +--------+---------+ + + + documented as of this encounter Visit Diagnoses Not on filedocumented in this encounter"
--- OUTSIDE RECORDS SUMMARY | ~2019-09-12 | XMS | Encounter Summary ---
Demographics + + + | Address | [address] | | | [place] [address] | + + + | Home Phone [...] Team Providers + +------+ + | Care Electronics Inspector Name | Role | Phone | [...] [address] | | | | | [place], [place] | [place] [address] | | | | | [address] | [phone] | | | | | [phone] | | | +--------+ + + + [...] [place] | | | | | | [address] | | | | | | | | +--------+---------+ + + + | 01/17/ | Office | Cardiology | Brianna Stewart | | | 2019 | Visit | | [address] | | | | | | [address] | | | | | | [place] [address] | | | | | | [phone] | | | | | | | [...] MV A Zack: 0.91 m/s MV Dec Lander: | | | 3.30 m/s2 MV DecT: 110.08 ms MV E Zack: 0.36 m/s MV E/A Ratio: | | | 0.39 MV PHT: 31.92 ms MVA By PHT: 6.89 cm2 Septal e': | | | 0.02 m/s Septal E/e': 17.87 Accounting Manager Assistant Controller: NEAL Authenticated | | | by: Aidan Becker Report Date/Time: 01-27-2018 20:31:19 | | + [...] | | cmLVPWd: 0.48 cmLVOT Area: 3.17 im8PANM Diam: 2.01 cm%FS: 13.00 %EF(Teich): | | 27.65 %ESV(Teich): 100.79 mlLVIDs: 4.66 cmSV(Teich): 38.53 mlRVIDd: 2.57 | | cmLAESV(A-L): 31.09 mlLAESV Index (A-L): 19.31 ml/m2LAAs A2C: 11.42 st6TCHOQ A-L | | A2C: 27.79 mlLALs A2C: 3.98 cmLAAs A4C: 12.18 si2PMMGM A-L A4C: 33.17 mlLALs | | A4C: 3.80 cmRAAs: 8.87 [id number] A-L: 20.88 mlRAESV MOD: 21.09 mlRALs: 3.19 | | cmTAPSE: 1.39 cmAV maxP.26 mmHgAV meanP.80 mmHgAV Vmax: 1.03 m/Damaris | | Vmean: 0.61 m/Damaris VTI: 18.51 cmAVA Vmax: 1.99 cm2AVA (VTI): 2.59 ha7VFDL (Vmax): | | 0.00 cm2/m2AVAI (VTI): 0.00 cm2/m2LVOT maxP.68 mmHgLVOT meanP.91 | | mmHgLVSI Dopp: 29.78 ml/m2LVSV Dopp: 47.95 mlLVOT Vmax: 0.64 m/sLVOT Vmean: 0.44 | | m/sLVOT VTI: 15.11 cmMV A Zack: 0.91 m/sMV Dec Lander: 3.30 m/s2MV DecT: 110.08 | | msMV E Zack: 0.36 m/sMV E/A Ratio: 0.39MV PHT: 31.92 msMVA By PHT: 6.89 [id number] | | e': 0.02 m/sSeptal E/e': 17.87 Accounting Manager Assistant Controller: NEALAuthenticated by: Aidan | | [facility] Date/Time: 01-27-2018 20:31:19 IMPRESSION: 1. The left [...] A Zack: 0.91 m/s | |MV Dec Lander: 3.30 m/s2 | |MV DecT: 110.08 ms | |MV E Zack: 0.36 m/s | |MV E/A Ratio: 0.39 | |MV PHT: 31.92 ms | |MVA By PHT: 6.89 cm2 | |Septal e': 0.02 m/s | |Septal E/e': 17.87 | | | |Accounting Manager Assistant Controller: DBS | |Authenticated by: Aidan Becker | [...]
--- OUTSIDE RECORDS SUMMARY | ~2019-09-12 | XMS | Encounter Summary ---
Demographics + + + | Address | [address] | | | [place] [address] | + + + | Home Phone [...] Team Providers + +------+ + | Care Briquetting Machine Operator Name | Role | Phone [...] | | | | [place], [place] | [phone] | | | | | [address] | | | | | | [phone] | | | +--------+ + + + [...] [place] | | | | | | [address] | | | | | | | | +--------+---------+ + + + | 01/17/ | Office | Cardiology | Brianna Stewart | | | 2019 | Visit | | [address] | | | | | | [address] | | | | | | [place] [address] | | | | | | [phone] | | | | | | | | +--------+---------+ + + + documented as of this encounter Visit Diagnoses Not on filedocumented in this encounter"
--- OUTSIDE RECORDS SUMMARY | ~2019-09-12 | XMS | Encounter Summary ---
Demographics + + + | Address | [address] | | | [place] [address] | + + + | Home Phone | | + + + | Preferred Language | Unknown | + + + | Marital Status | | + + + | Lutheran Affiliation [...] Team Providers + +------+ + | Care Wheel Grinder Name | Role | Phone | + +------+ + | Luanne Love | PCP | | | PA | | | + +------+ + Encounter Details +--------+ + + + + | Date | Type | Department | Care Team | Description | +--------+ + + + + | 11/11/ | Orders Only | [facility] | Brianna Stewart | 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; | | | | [address] | [address] | Atherosclerotic | | | | [address] | [place] [address] | heart disease of | | | | [place], [place] | [phone] | [place] coronary | | | | [address] | | artery with angina | | | | [phone] | | pectoris (HCC); Old | | [...] | | | | | | [address] [place], [place] | | | | | | [address] | | | | | | | | +--------+---------+ + + + | 01/17/ | Office | Cardiology | Brianna Stewart | | | 2020 | Visit | | [address] | | | | | | [address] | | | | | | [place] [address] | | | | | | [phone] | | | | | | | [...] of | | | | | | [place] coronary | | | | | | [...] + + | 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
--- OUTSIDE RECORDS SUMMARY | ~2019-09-12 | XMS | Encounter Summary ---
Demographics + + + | Address | [address] | | | [place] [address] | + + + | Home Phone | | + + + | Preferred Language | Unknown | + + + | Marital Status | | + + + | Rastafarian Affiliation [...] Team Providers + +------+ + | Care Environmental Epidemiologist Name | Role | Phone | + [...] | | | | | artery | LEGAL ARCHIVIST [address] | | | | | | disease | [address] | | | | | | involving | [place] | | | | | | [place] | [place] | | | | | | coronary | [address] | | | | | | artery of | Phone: | | | | | | [place] heart | [phone] | | | | | | without | Fax: | | | | | | angina | [phone] | | | | | | pectoris [...] + + | 07/12/ | Office | [facility] | rBianna Stewart | Coronary artery | | 2019 | Visit | CARDIOLOGY [place] | [address] | disease involving | | | | [address] | [address] | [place] coronary | | | | [address] | [place] [address] | artery of [place] | | | | [place] | [phone] | heart without angina | | | | [address] | | pectoris (Primary | | | | [phone] | | Dx); S/P drug | | [...] you an Echo to be done at [facility] in November , and see me in [...] labs , and have referred her to network engineer administrator Dr. Buchanan for a decline in her [...] home with instructions to follow-up with her advice line rn, but did not see suzan oconnor until [...] (2.25*24mm Promus Premier). Last Stress Test, 09/02/2015 ([facility]): Lexiscan, old inferior infarction, no ischemia, LVEF [...] to absence of adequate TR jet. Mild ID. No pericardial or pleural effusion. IVC WNL, [...] previously , Otherwise stable rate 61 bpm, ID 134 ms, QRS 92 ms, QTC 430 ms EK11/27: ([facility] ER). Sinus rhythm with sinus arrhythmia, PVC's. T-wave inv ersion to inferior leads and lateral leads, less pronounced than EKG done in June and in e office today. Rate 67 bpm, ID 146 ms, QRS 82 ms, QTC 450 ms (personally reviewed by me grisel d compared to previous EKG's) EK: Sinus bradycardia, stable T-wave inversion to inferior and lateral leads , rate 52 bpm, ID 142 ms, QRS 86 ms, QTC 427 ms (personally reviewed by me and compared to previous EKG's) EK02/07/2018: Normal sinus rhythm, stable T-wave inversion to inferolateral leads. Rate 64 bpm, ID 138 ms, QRS 90 ms, QTC 441 ms (personally reviewed by me and compared to previo us EKG 02/01/2017, rate is faster, otherwise similar morphology) EK02/11/2019:( [facility] ER) Normal sinus rhythm, nonspecific ST-T wave abnormality to infero lateral leads, stable. Rate 64 bpm, ID 136 ms, QRS 106 ms, QTC 437 ms, tracing personally r eviewed by me EK04/24/2019: Sinus bradycardia, ST and T wave abnormalities to inferior and anterolatera l leads, similar to previous EKG's, rate 56 bpm, ID 150 ms, QRS 80 ms, QTC 441 ms seen perso monica reviewed by me, and similar morphology to EKG performed in January 2019 and serum, an d as well as January 2018 EK07/13/2019: Normal sinus rhythm ,ongoing T wave inversions to lateral leads, previous T wave inversion to V3 resolved, ongoing T wave inversion to inferior leads. Rate 62 bpm, ID 136 ms, QRS 90 ms, QTC 432 [...] appointment to follow-up with Dr. Buchanan, the network engineer administrator, on October 29. I have a gain [...] have her establish with one of the advice line rn who comes to [place]. 1. Coronary artery disease involving [place] coronary artery of [place] heart without angina pectoris 2. S/P drug [...] previous notes for continuity of care purp ose Mimi CHAVEZ [facility] 07/14/2019 docume bea in this encounter Plan of Treatment +--------+---------+ + + + | Date | Type | Specialty | Care Team | Description | +--------+---------+ + + + | 11/07/ | Office | Nephrology | Maxx Buchanan MD | | 2019 | Visit | | [address] [facility] | | | | | | [address] [place], [place] | | | | | | [address] | | | | | | | | +--------+---------+ + + + | 01/17/ | Office | Cardiology | Brianna Stewart | | | 2019 | Visit | | [address] | | | | | | [address] | | | | | | [place] [address] | | | | | | [phone] | | | | | | | [...] 11/28/2019, Expires: | | | | | [place] coronary | 07/12/2020 | | | | | artery of [place] | | | | | | heart [...] the | | | | PDT | [place] coronary | results section. | | | | | artery of [place] | | | | | | heart [...] | | | | | BRIANNA TOBAR ([id number]) on | | | | | | [...] + + | Coronary artery disease involving [place] coronary artery of [place] heart without | | angina pectoris - [...]
--- OUTSIDE RECORDS SUMMARY | ~2019-09-12 | XMS | Encounter Summary ---
Demographics + + + | Address | [address] | | | [place] [address] | + + + | Home Phone | | + + + | Preferred Language | Unknown | + + + | Marital Status | | + + + | Hinduism Affiliation | Unknown | + + + | Race | Unknown | + + + | Ethnic Group | Unknown | + + + Author + + + | Author | [facility] | | | and [place] | + + + | Organization | [facility] [...] Team Providers + +------+ + | Care Hoop Expander Name | Role | Phone | + [...] | | | 2020 | | NEPHROLOGY [facility] | [address] [place] | | | | | [address] [place] | [address] [place], [place] | | | | | [address] [place], [place] | [address] | | | | | [address] | | | | | | [phone] | | | +--------+ + + + [...] | | | | | | [address] [place] | | | | | | [address] | | | | | | | | +--------+---------+ + + + | 01/17/ | Office | Cardiology | Brianna Stewart | | | 2019 | Visit | | [address] | | | | | | [address] | | | | | | [place] [address] | | | | | | [phone] | | | | | | | | +--------+---------+ + + + documented as of this encounter Visit Diagnoses Not on filedocumented in this encounter"
--- OUTSIDE RECORDS SUMMARY | ~2019-09-12 | XMS | Encounter Summary ---
Demographics + + + | Address | [address] | | | [place] [address] | + + + | Home Phone [...] Team Providers + +------+ + | Care Cable Stretcher And Tester Name | Role | Phone | + [...] [address] | [address] | [place] coronary | | | | [address] | [place] [address] | artery of [place] | | | | [place] | [phone] | heart without angina | | | | [address] | | pectoris (Primary | | | | [phone] | | Dx); S/P drug | | [...] in this encounter Patient Instructions Patient Instructions Greggeladio JanelEKATERINA - 04/24/2019 9:00 AM PSTI have ordered you fasting labs to be done at [facility] in 2 weeks , but can drink [...] weeks documented in this encounter Progress Notes GreggeladioBriannaJanelEKATERINA - 04/24/2019 9:00 AM PSTFormatting of this [...] history, as she reports that her m [place] can be poor.. Today, I reviewed all [...] reported as negative x2.Labs performed in [facility] showed a normal CMP except for low potassium of 3.5, and elevated creatinine of 1.4 with GFR of 36, magnesium was slightly low at 1.9, and CBC was normal she was discharged home with instructions to follow-up with her clock maker, but I have not seen her until [...] EXAM: Wt Readings from Last 3 Encounters: 04/24/19 60.7 kg (133 lb 12.8 oz) [...] to absence of adequate TR jet. Mild SC. No pericardial or pleural effusion. IVC WNL, [...] previously , Otherwise stable rate 61 bpm, SC 134 ms, QRS 92 ms, QTC 430 ms EK11/27: ([facility]). Sinus rhythm with sinus arrhythmia, PVCs. T-wave inve rsion to inferior leads and lateral leads, less pronounced than EKG done in June and in the office today. Rate 67 bpm, SC 146 ms, QRS 82 ms, QTC 450 ms (personally reviewed by me and compared to previous EKG's) EK: Sinus bradycardia, stable T-wave inversion to inferior and lateral leads , rate 52 bpm, SC 142 ms, QRS 86 ms, QTC 427 ms (personally reviewed by me and compared to previous EKG's) EK02/07/2018: Normal sinus rhythm, stable T-wave inversion to inferolateral leads. Rate 64 bpm, SC 138 ms, QRS 90 ms, QTC 441 ms (personally reviewed by me and compared to previo us EKG 02/01/2017, rate is faster, otherwise similar morphology) EK02/11/2019:( [facility]) Normal sinus rhythm, nonspecific ST-T wave abnormality to infero lateral leads, stable. Rate 64 bpm, SC 136 ms, QRS 106 ms, QTC 437 ms, tracing personally r eviewed by me EK04/24/2019: Sinus bradycardia, ST and T wave abnormalities to inferior and anterolatera l leads, similar to previous EKG's, rate 6 bpm, SC 150 ms, QRS 80 ms, QTC 441 [...] lower heart rates. I asked my medical radiation therapist to send a message through to her fund development manager Dr. Mariano to see if she [...] my patient 1. Coronary artery disease involving [place] coronary artery of [place] heart without angina pectoris 2. S/P drug [...] contain inadvertent rec ognition errors. Mimi CHAVEZ [facility] 04/24/2019 Ydomichael figueredo in this encounter Plan of Treatment +--------+---------+ + + + | Date | Type | Specialty | Care Team | Description | +--------+---------+ + + + | 11/07/ | Office | Nephrology | Maxx Buchanan MD | | | 2019 | Visit | | [address] | | | | | | [address] [place] | | | | | | [address] | | | | | | | | +--------+---------+ + + + | 01/17/ | Office | Cardiology | Brianna Stewart | | | 2019 | Visit | | [address] | | | | | | [address] | | | | | | [place] [address] | | | | | | [phone] | | | | | | | [...] the | | | | PST | [place] coronary | results section. | | | | | artery of [place] | | | | | | heart [...] INTERPRETAT | Please refer to | | LEONMT MUSE | | | ION TEXT | Providers office visit | | | | | | note for Providers | | | | | | Interpretation.Confirmed | | | | | | by [facility] [place] Read Only, | | | | | | [facility] Michelle ([id number]), | | | | | | production editor Fuentes Mcgarry | | | | | | ([id number]) on 04/24/2019 | | | | | [...] + + | Coronary artery disease involving [place] coronary artery of [place] heart without | | angina pectoris - [...]
--- OUTSIDE RECORDS SUMMARY | ~2019-09-12 | XMS | Encounter Summary ---
Demographics + + + | Address | [address] | | | [place] [address] | + + + | Home Phone | | + + + | Preferred Language | Unknown | + + + | Marital Status | | + + + | Methodist Affiliation | Unknown | + + + | Race | Unknown | + + + | Ethnic Group | Unknown | + + + Author + + + | Author | [facility] | | | and [place] | + + + | Organization | [facility] | | | [...] Team Providers + +------+ + | Care Landscaping Crew Leader Name | Role | Phone | + [...] | | | | [place], [place] | [phone] | | | | | [address] | | | | | | [phone] | | | +--------+ + + + [...] [place] | | | | | | [address] | | | | | | | | +--------+---------+ + + + | 01/17/ | Office | Cardiology | Brianna Stewart | | | 2019 | Visit | | [address] | | | | | | [address] | | | | | | [place] [address] | | | | | | [phone] | | | | | | | | +--------+---------+ + + + documented as of this encounter Visit Diagnoses Not on filedocumented in this encounter"
--- NOTE | 2019-09-12 10:00 | NUR ---
Spoke with Shoaib by phone. Discussed I am not able to place her at [facility] as her Covid returned positive. She states, "how did this happen to us? My is gone, and my world has turned upside down". Pt begins to cry. Asked if she would be willing to stay here at the hospital on transitional care for Physical Therapy. Pt is deconditioned and agrees to stay. Discussed care home plan, where she would like to go on discharge. Pt agrees she can't go home and would like to go to an Assisted Living. She would prefer to go to [facility]. I will call and find criteria for admission following positive covid pts.
[~2019-09-12 10:55] MED LIST changes: +CIMETIDINE800 MG PO; +DORZOLAMIDE HCL10 ML OS; +LEVOTHYROXINE125 MCG PO; +TIMOPTIC5 ML OS
--- NOTE | 2019-09-12 13:30 | NUR ---
Called and spoke with Mouna Barron, sprinkler driver of [facility]. She states she is not sure if she will take pt's who have had recent Covid. She will not take any covid + patients without two - tests. She states it would be case by case and we would need to call when the patient has tested -. She has spoken with the son and let him know they don't have a bed available at this time.
--- NOTE | 2019-09-12 13:44 | NUR ---
PT ASLEEP AT THE MOMENT, STILL UNDER PRECAUTIONS. WILL CONTINUE TO CHECK
--- NOTE | 2019-09-12 14:17 | NUR ---
Received a call from Ericka at [facility]. Pt's son Godfrey has called her for placement. She would like chart notes and a face sheet. Asked if she is aware pt is Covid + and she states yes. Chart faxed to Ericka Don [phone].
--- NOTE | 2019-09-12 15:05 | NUR ---
PATIENT NOW IN ROOM 126, STILL COVID POSITIVE. SHE IS ON A REGULAR DIET WITH A SMALL APPETITE. ACTUALLY ATE BREAFKAST WELL THIS AM, PER JULIAN PUENTE. PATIENT DOES NOT LIKE ENSURE CLEAR MIXED JAMESON. SHE HAS TRIED THE ENSURE ENLIVES BUT DOESN'T CARE TOO MUCH FOR THEM, EITHER. SHE DID DRINK PART OF A VANILLA ENSURE YESTERDAY. PATIENT NEEDS ENCOURAGEMENT TO EAT ENOUGH CALORIES AND PROTEIN EACH DAY TO PREVENT MUSCLE CATABOLISM. SHE HAS ALSO SWITCHED TO TRANSITIONAL CARE.
--- NOTE | 2019-09-12 15:14 | NUR ---
PT UP TO RESTROOM AND ASSISTED WITH FULL SHOWER. PT TOLERATED WELL AND WAS APPRECIATIVE. DRIED HAIR AND MOVED BACK TO CHAIR WITH WARM BLANKET AND ROBE. CALL LIGHT IN REACH.
--- NOTE | 2019-09-12 16:59 | NUR ---
PT CONTINUES TO SIT IN CHAIR WITH BLANKETS. DENIES CONCERNS OR NEEDS ATT.
--- NOTE | 2019-09-12 17:40 | NUR ---
PT REPORTED FEELING NAUSOUS AND HAD ONE EPISODE OF EMESIS. ADMINISTERED ZOFRAN. PT ASSISTED BACK TO CHAIR, WITH CALL LIGHT IN REACH.
--- NOTE | 2019-09-12 20:51 | NUR ---
IN ROOM TO ASSESS PT. PT AMBULATED FROM CHAIR TO BATHROOM, THEN TO BED. DENIES NAUSEA AT THIS TIME. GIVEN WARM BLANKETS. ASSESSMENT COMPLETED. ASSISTED WITH PM CARES. NO FURTHER NEEDS AT THIS TIME
--- NOTE | 2019-09-13 00:15 | NUR ---
pt resting with eyes closed, breathing even and unlabored. call light within reach. no needs at this time.
--- NOTE | 2019-09-13 02:00 | NUR ---
pt up to bathroom. back to bed. no stated needs at this time.
--- NOTE | 2019-09-13 07:30 | NUR ---
RECEIVED REPORT AT 0700, PT AT THIS TIME IS IN BED SLEEPING. WILL LET HER REST UNTIL BREAKFAST. NO NEW CONCERNS NOTED.
--- NOTE | 2019-09-13 08:02 | NUR ---
Pt to Transitional care for deconditioning. Pt. recently last week. Son, Godfrey, is assisting her and states she has had slight dementia for some time. Her spouse drove her and set up medications. He and pt agree she cannot go home on discharge. Placement maybe difficult as at this time. SNF and assisted livings have declined her due to her Covid status. They are requesting she have 2 neg labs and 14 days isolation prior to considering taking her into their facilities. She is unable to go home with son as he has been off work during covid and isolated twice due to exposure to his parents. He is out of isolation as of yesterday and is returning to work. Pt will continue Transitional Care program and will work on placement when completed.
--- NOTE | 2019-09-13 08:45 | NUR ---
PT UP IN CHAIR EATING BREAKFAST. BP SOMEWHAT ELEVATED BEFORE MORNING MEDS. OTHER V/S ARE WDL, DID NOT AUSCULTATE LUNG SOUNDS DUE TO PAPR. PT STILL HAS A SLIGHT COUGH. NO SPUTUM NOTED. NO PERIPHERAL EDEMA NOTED. PT AAO OVERALL. O2 SATS >92% ON RA. PT DID STATE THAT SHE THINKS HER URINE IS GREEN IN COLOR. PT WILL NOT FLUSH TOILET NEXT TIME. OTHERWISE NO NEW CONCERNS NOTED AT THIS TIME.
--- NOTE | 2019-09-13 09:00 | NUR ---
Call from son and he will be here around 9 am with POA for his mother. Son arrives and copies taken and one placed on the chart and one sent to medical records. Son would like to visit mom, called CCU to confirm this is a good time. Godfrey taken to CCU and assisted to call mom on her cell phone. Pt was absolutely delighted to see him through the window and was able to visit on the phone.
--- NOTE | 2019-09-13 10:20 | NUR ---
PT AT THIS TIME IS STILL STITTING IN HER CHAIR AND RESTING.
--- NOTE | 2019-09-13 14:30 | NUR ---
PT WAS SLEEPING. I WOKE UP PT AND NOW SHE IS SITTING IN CHAIR. PT HAS NO NEW COMPLAINTS AT THIS TIME. NO NEW COCNERNS HAVE BEEN NOTED. APPETITE IS STILL SOMEWHAT POOR. PT WAS ENCOURAGED TO DRINK MORE FLUIDS ALSO.
--- NOTE | 2019-09-13 18:24 | NUR ---
PT ATE ALL HER DINNER. PT STILL UP IN CHAIR. BED LINNENS CHANGED.
--- NOTE | 2019-09-13 21:30 | NUR ---
SHIFT REPORT RECEIVED FROM JULIAN GOTTLIEB. IN TO ASSESS PT AT THIS TIME, LIMITED DUE TO PAPR PPE. PT DENIES CHEST PAIN, SOB, OR NAUSEA. REMAINS ON ROOM AIR. VITAL SIGNS STABLE. EVENING MEDICATIONS TAKEN WITHOUT ISSUE. PT AMBULATED TO BATHROOM WITH FWW, VOIDED AND RETURNED TO BED. IV PATENT AND INTACT. NO FURTHER REQUESTS AT THIS TIME, CALL LIGHT WITHIN REACH.
--- NOTE | 2019-09-13 23:00 | NUR ---
PT APPEARS TO BE ASLEEP AT THIS TIME, DOES NOT APPEAR TO BE IN ANY DISTRESS. RESPIRATIONS EVEN AND UNLABORED. WILL ALLOW FOR REST AND CONTINUE TO MONITOR.
--- NOTE | 2019-09-14 02:34 | NUR ---
PT CONTINUES TO SLEEP, NO APPARENT DISTRESS, RESPIRATIONS EVEN AND UNLABORED. ALLOWING FOR REST AND CONTINUING TO MONITOR.
--- NOTE | 2019-09-14 06:00 | NUR ---
CHECKED IN ON PT WHO CONTINUES TO SLEEP. NO APPARENT DISTRESS, RESPIRATIONS REMAIN EVEN AND UNLABORED.
--- NOTE | 2019-09-14 08:55 | NUR ---
Discussed in MDT. Pt in room as she remains Covid +. PT/OT will cont. with treatment. Pt will be covid tested again tomorrow. Pt will cont TC as she is needing therapy, education, and Care plan Management.
--- NOTE | 2019-09-14 09:37 | NUR ---
PT IV SITE IS SLIGHTLY PAINFUL WITH FLUSH. PT IS ALERT AND ORIENTED X4, DENIES NAUSEA, SOB, AND PAIN. PT IS INDEPENDENT IN ROOM, PT REPORTS "I NEED TO GO HOME, I HAVE THINGS TO DO". PT ABLE TO EAT ALL OF HER BREAKFAST AND DRINK HER COFFEE SITTING AT THE BEDSIDE. PT DENIES ANY OTHER NEEDS AT THIS TIME.
--- NOTE | 2019-09-14 10:55 | NUR ---
PT IS SITTING UP IN CHAIR CALL LIGHT IS WITHIN REACH
--- NOTE | 2019-09-14 12:05 | NUR ---
PT LUNCH TRAY IS HERE, PHYSICAL THERAPY IS WILLING TO TAKE INTO ROOM.
--- NOTE | 2019-09-14 13:25 | NUR ---
PT UP AMBULATING IN ROOM WITH WALKER BY HERSELF, STEADY ON HER FEET.
--- NOTE | 2019-09-14 14:50 | NUR ---
PT HAS A PERSONAL PHONE CALL THAT SHE IS WILLING TO TAKE AT THIS TIME. PT IS CURRENTLY SITTING UP IN HER CHAIR.
--- NOTE | 2019-09-14 15:28 | NUR ---
PT TALKING ON THE PHONE WITH JEANETTE BO.
--- NOTE | 2019-09-14 16:38 | NUR ---
pt is kneeling on the couch looking out the window. call light is within reach.
--- NOTE | 2019-09-14 17:50 | NUR ---
PT GIVEN DINNER, SHE IS SITTING UP IN THE CHAIR. PT DENIES PAIN, NAUSEA, AND SOB. PT INDEPENDENT WITHIN THE ROOM, GEOVANNY ACTIVITY WITH WALKER WELL. ALL LINENS CHANGED ON PT BED. PT GIVEN BLANKETS FROM THE WARMER. ROOM PICKED UP AND FRESH SUPPLIES GIVEN. PT REPORTS NO OTHER NEEDS AT THIS TIME.
--- NOTE | 2019-09-14 19:53 | NUR ---
SHIFT REPORT RECEIVED FROM JULIAN FRANCIS. PT IS CURRENTLY RESTING IN BED WITH EYES CLOSED. NO APPARENT DISTRESS. RESPIRATIONS EVEN AND UNLABORED ON ROOM AIR.
--- NOTE | 2019-09-14 21:17 | NUR ---
ASSESSMENT COMPLETED. PT IS ALERT/ORIENTED, DENIES PAIN. ASSESSMENT LIMITED DUE TO PAPR PPE, HOWEVER PT DENIES SOB, CHEST PAIN, AND NAUSEA. IV D/C'D PT IS SWING BED AND IV IS NO LONGER NEEDED. PT TOLERATED WELL, CATHETER TIP INTACT. PT TOOK EVENING MEDICATIONS WITHOUT ISSUE. WARM BLANKETS AND FRESH ICE WATER PROVIDED. UPDATED PT THAT HER SON AND SISTER CALLED TO CHECK IN ON HER, SHE DID NOT WISH TO RETURN PHONE CALLS AT THIS TIME. CALL LIGHT WITHIN REACH, PT DENIES FURTHER REQUESTS AT THIS TIME.
--- NOTE | 2019-09-14 23:06 | NUR ---
PT APPEARS TO BE SLEEPING, NO APPARENT DISTRESS. REPIRATIONS EVEN AND UNLABORED ON ROOM AIR. WILL ALLOW FOR REST AND CONTINUE TO MONITOR.
--- NOTE | 2019-09-15 01:34 | NUR ---
PT CONTINUES TO SLEEP, NO APPARENT DISTRESS. RESPIRATIONS EVEN AND UNLABORED. WILL ALLOW FOR REST AND CONTINUE TO MONITOR.
--- NOTE | 2019-09-15 05:02 | NUR ---
PT CONTINUES TO SLEEP SOUNDLY, NO APPARENT DISTRESS. RESPIRATIONS EVEN AND UNLABORED. WILL CONTINUE MONITOR AND ALLOW FOR REST.
--- NOTE | 2019-09-15 09:40 | NUR ---
RESP THERAPY IN ROOM TO REPEAT COVID TEST. PT IN BED, ABLE TO GEOVANNY TEST WELL. PT UP AMBULATES TO CHAIR INDEPENDENTLY WHEN FINISHED. ALL VITALS ARE WNL. PT IS ALERT AND ORIENTED TO BASELINE. BREAKFAST SERVED TO PT UP IN CHAIR. ALL LINENS CHANGED ON BED. PT GIVEN AM MEDS, GEOVANNY EASILY. ASSESSMENT IS WNL. PT GIVEN ALL PERSONAL SUPPLIES SUCH CLEAN TOWELS, ATTENDS, FRESH ICE WATER, AND CARDS FROM FAMILY. PT DENIES PAIN, NAUSEA, AND SOB AT THIS TIME. PT REPORTS SHE IS HAPPY WITH HER HOT COFFEE, AND DENIES ANYOTHER NEEDS AT THIS TIME. CALL LIGHT, PHONE, AND TV REMOTE ALL WITHIN PT REACH.
--- NOTE | 2019-09-15 11:06 | NUR ---
0933 COVID SWAB COLLECTED DELIVED TO LAB NO COMPLICATIONS
--- NOTE | 2019-09-15 12:45 | NUR ---
BROUGHT LUNCH INTO PT ROOM. PT REQUESTED AND WAS GIVEN TWO WARM BLANKETS. PT TUCKED IN CHAIR WITH TRAY IN PLACE TO EAT LUNCH. PT DENIES PAIN, NAUSEA, AND SOB AT THIS TIME. PT HAS CALL LIGHT AND PHONE WITHIN REACH. PT DENIES ANY OTHER NEEDS AT THIS TIME.
--- NOTE | 2019-09-15 13:40 | NUR ---
TRANSFERED PHONE CALL FROM MS. SILVA (PT'S SISTER) INTO PT ROOM, PT ABLE TO VISIT ON THE PHONE FOR A WHILE.
--- NOTE | 2019-09-15 15:30 | NUR ---
PT WILLING TO WORK WITH OCCUPATIONAL THERAPY TODAY, HOWEVER REFUSED TO WORK WITH PHYSICAL THERAPY.
--- NOTE | 2019-09-15 16:39 | NUR ---
spoke on the phone with Frances Reno Larry to update to pt progress, then transfered call into pt room. pt able to answer phone and visit with son. pt sitting up in chair at this time.
--- NOTE | 2019-09-15 17:55 | NUR ---
PT FINISHED WORKING WITH PHYSICAL THERAPY, NOW SITTING UP IN THE CHAIR EATING DINNER.
--- NOTE | 2019-09-15 18:53 | NUR ---
PT'S [id number] ALEJANDRO IN TO VISIT WITH THE PT VIA THE PHONE STANDING IN THE [facility] VISABLE TO PT THROUGH GLASS DOOR WHICH IS CLOSED.
--- NOTE | 2019-09-15 20:43 | NUR ---
SHIFT REPORT RECEIVED FROM JULIAN FRANCIS. ASSESSMENT COMPLETED AT THIS TIME, LIMITED DUE TO PAPR PPE. PT IS ALERT/ORIENTED. DENIES PAIN, CHEST PAIN, SOB, AND NAUSEA. SKIN GROSSLY INTACT, NO EDEMA NOTED. NO IV PRESENT. EVENING MEDICATIONS TAKEN WITHOUT ISSUE. PT UP TO BATHROOM TO VOID AND THEN RETURNED TO BED WITH FWW. FRESH ICE WATER AND WARM BLANKETS PROVIDED. VITAL SIGNS STABLE. CALL LIGHT WITHIN REACH.
--- NOTE | 2019-09-15 22:35 | NUR ---
PT APPEARS TO BE ASLEEP AT THIS TIME. NO APPARENT DISTRESS. RESPIRATIONS EVEN AND UNLABORED. WILL ALLOW FOR REST AND CONTINUE TO MONITOR.
--- NOTE | 2019-09-16 01:29 | NUR ---
PT CONTINUES TO SLEEP SOUNDLY, NO APPARENT DISTRESS. RESPIRATIONS EVEN AND UNLABORED. WILL ALLOW FOR REST AND CONTINUE TO MONITOR.
--- NOTE | 2019-09-16 04:30 | NUR ---
PT CONTINUES TO SLEEP SOUNDLY, NO APPARENT DISTRESS, RESPIRAIONS EVEN AND UNLABORED.
--- NOTE | 2019-09-16 09:09 | NUR ---
PT UP AND OUT OF BED TO BATHROOM WITH WALKER. PT ABLE TO DO OWN AM CARES AND TOILETING. PT THEN AMBULATES TO CHAIR WITH WALKER. SITTING UP EATING BREAKFAST AND WATCHING TV. PT ABLE TO GEOVANNY ALL MEDS EASILY. PHONE, CALL LIGHT, AND TV REMOTE ALL WITHIN REACH. PT DENIES PAIN, NAUSEA, AND SOB THIS AM, IS ALERT AND ORIENTED TO BASELINE. ROOM PICKED UP, GARBAGES EMPTIED, AND LINENS CHANGED ON BED. PT VITALS ALL WNL AT THIS TIME, PT DENIES ANY OTHER NEEDS RIGHT NOW.
--- NOTE | 2019-09-16 12:35 | NUR ---
PT BROUGHT LUNCH, PT SITTING UP IN THE CHAIR WATCHING TV. PT DENIES PAIN, NAUSEA, AND SOB.
--- NOTE | 2019-09-16 13:21 | NUR ---
full report given to michael JORDAN, all questions answered.
--- NOTE | 2019-09-16 15:30 | NUR ---
THIS RN TOOK OVER CARE AT THIS TIME. PATIENT SITTING IN THE CHAIR EATING LUNCH. NO OTHER NEEDS AT THIS TIME. WILL CONTINUE TO CLOSELY MONITOR.
--- NOTE | 2019-09-16 15:30 | NUR ---
PHYSICAL THERAPY IN TO WORK WITH PATIENT. PATIENT DENEIS ANY NEEDS FROM NURSING STAFF AT THIS TIME. WILL CONTINUE TO CLSOELY MONITOR.
--- NOTE | 2019-09-16 18:37 | NUR ---
THIS RN IN TO SEE PATIENT. PATIENT IS RESTING IN THE CHAIR AT THIS TIME. BROUGHT PATIENT HER DINNER AND MEDICATION. PATIENT DENIES ANY OTHER NEEDS AT THIS TIME. WILL CONTINUE TO CLOSELY MONITOR.
--- NOTE | 2019-09-16 21:00 | NUR ---
PATIENT REQUEST A WARM BLANKET. PATIENT PROVIDED WITH 2 WARM BLANKETS. PATIENT REPORTS SHE HAS COMPLETED HER EVENING CARES AND IS READY FOR SLEEP. EVENING MEDS PROVIDED. VS STABLE. PATIENT'S ASSESSMENT IS UNCHANGED. PATIENT IS TEARFUL UPON FINDING OUT THAT TOMORROW IS FATHERS DAY. THIS RN SAT WITH HER FOR SEVERAL MINS. PATIENT REPORTS FEELING A DIRE NEED TO LEAVE THE HOSPITAL BUT DOES NOT WISH TO RETURN TO HER HOUSE, POSSIBLE GOING TO HER SON'S HOUSE. PATIENT IS FEELING DEPRESSED AND CLOSTRAPHOBIC. BLINDS LEFT OPEN AND CURTAIN OPEN PER REQUEST. PATIENT DENIES OTHER NEEDS. CALL LIGHT IN REACH.
--- NOTE | 2019-09-16 21:32 | NUR ---
PATIENT'S DAUGHTER IN LAW CALLED FOR A PATIENT UPDATE. PATIENT HAS GONE TO BED SO ENCOURAGED FAMILY TO CALL IN THE MORNING. TOLD FAMILY THAT PATIENT HAD A GOOD DAY AND VS WERE STABLE. NO CONCERNS FROM STAFF. DISCUSSED FAMILY'S FEELINGS ABOUT PATIENT'S DISCHARGE PLANS. FAMILY WOULD LIKE HER TO STAY WITH THEM AT THIS TIME BUT WAS UNSURE HOW SAFE THAT WOULD BE FOR THE FAMILY. ENCOURAGED FAMILY TO DISCUSS OPTIONS WITH CARE TEAM ON WEDNESDAY WHEN THE R[place] IS BACK IN TOWN. ASSURED FAMILY I WOULD LET PATIENT KNOW THEY CALLED.
--- NOTE | 2019-09-17 | NUR ---
PATIENT APPEARS TO BE RESTING COMFORTABLE IN BED. CALL LIGHT IN REACH. CHEST RISE AND FALL NOTED.
--- NOTE | 2019-09-17 06:00 | NUR ---
PATIENT UP TO THE BATHROOM INDEPENDENTLY. WAVED THROUGHOUT THE DOOR. PATIENT DENIES ANY NEEDS AT THIS TIME.
--- NOTE | 2019-09-17 09:12 | NUR ---
PT UP AND AWAKE SITTING IN CHAIR. PT DENIES PAIN, NAUSEA, AND SOB. ALL VITALS ARE WNL. PT GIVEN BREAKFAST, SHE STATES "OH GOOD, I'M HUNGRY". PT ABLE TO TAKE PILLS EASILY. PT IS COOPERATIVE AND ORIENTED. CALL LIGHT AND PHONE ARE WITHIN REACH.
--- NOTE | 2019-09-17 10:54 | NUR ---
MR.SCOT ALEJANDRO CALLED FOR UPDATE ON PT AND ON RESULTS OF MOST RECENT COVID TEST. UPDATED TO POSITIVE STATUS ON COVID TEST.
--- NOTE | 2019-09-17 12:10 | NUR ---
PT GIVEN LUNCH, SHE IS SITTING UP IN THE CHAIR WATCHING TV AT THIS TIME. PT JUST GOT OFF THE PHONE WIHT HER NIECE. PT IS ALERT AND ORIENTED X4, DENIES PAIN, NAUSEA, AND SOB; IS CALM AND COOPERATIVE. PLAN DISCUSSED TO ASSIST PT WITH SHOWER AFTER LUNCH.
--- NOTE | 2019-09-17 17:00 | NUR ---
DR. SANTOS IN ROOM TO SEE PT, THEN FINISHED AND LEFT THE ROOM. ALL LINENS CHANGED ON BED. ASSISTED PT TO SHOWER AND SHAMPOO HER HAIR. PT REQUIRES SMALL AMOUNT OF ASSISTANCE FOR SHOWER. PT THEN BACK TO THE CHAIR, DENIES PAIN, NAUSEA, AND SOB. PT HAS CALL LIGHT WITHIN REACH. DENIES ANY OTHER NEEDS AT THIS TIME.
--- NOTE | 2019-09-17 17:10 | NUR ---
PHYSICAL THERAPY IN THE ROOM TO WORK WITH PT.
--- NOTE | 2019-09-17 18:04 | NUR ---
BROOKE ALEJANDRO OUTSIDE OF PT ROOM TO VISIT WITH PT VIA CELL PHONE AND ABLE TO SEE EACH OTHER.
--- NOTE | 2019-09-17 19:30 | NUR ---
REPORT RECEIVED. PATIENT SITTING ON THE COUCH LOOKING OUT THE WINDOW. DENIES ANY NEEDS AT THIS TIME. WILL CALL WHEN READY FOR BED.
--- NOTE | 2019-09-17 20:56 | NUR ---
PATIENT PROVIDED WITH EVENING MEDS. VS STABLE. TOLERATING ROOM AIR. NO FEVER. DENIES FEELING SOB. REPORTS MILD HEADACHE, REQUEST PRN TYLENOL. BÁRBARA JORDAN DISCUSSED WITH AND ONE TIME ORDER RECEIVED. PATIENT ASSISTED INTO BED AND WARM BLANKETS PROVIDED. PATIENT DENIED ANY CONCERNS OR NEEDS AT THIS TIME. LIGHTS DIMMED. CURTAIN OPEN PER REQUEST. CALL LIGHT IN REACH.
--- NOTE | 2019-09-18 | NUR ---
PATIENT APPEARS TO BE SLEEPING SOUNDLY IN HER BED. CHEST RISE AND FALL NOTED. CALL LIGHT IN REACH.
--- NOTE | 2019-09-18 05:57 | NUR ---
PATIENT UP TO THE BATHROOM INDEPENDENTLY. DENIES ANY NEEDS.
--- NOTE | 2019-09-18 07:00 | NUR ---
Report received, orders acknowledged.
--- NOTE | 2019-09-18 07:55 | NUR ---
Patient sleeping in bed, respirations even and unlabored. Call light within reach.
--- NOTE | 2019-09-18 08:45 | NUR ---
Patient laying in bed with eyes closed, rouses easily to voice. AM medications given, assessment complete. Vital signs taken, 97% on RA. Patient reports a headache, states "I think it's a tension/stress headache." Patient up to chair independently. Breakfast delivered, 75% eaten. Warm blanket provided. Mail delivered to patient room. Linens changed. Patient denies further needs, call light within reach.
--- NOTE | 2019-09-18 08:59 | NUR ---
SPOKE WITH SON RODOLFO. HE STATES HE VISITED PATIENT THIS WEEKEND. THEY ARE VERY HAPPY WITH HER CARE AND HAVE NO CONCERNS. HE STATES HE IS AWARE HER LAST COVID SCREEN WAS POSITIVE. HE IS STILL HOPING SHE WILL BECOME NEGATIVE TO COME HOME AND THEY ARE STILL PLANNING ON HER MOVING TO [facility]. LIVING AT SOME POINT. DISCUSSED MEDICARE COVERAGE OF TRANSITIONAL CARE. QUESTIONS ANSWERED. DISCUSSED WE ARE STILL KEEPING A LOOK OUT FOR ANY FACILITIES IN THE AREA WHO TAKE POSITIVE COVID PATIENTS. HE STATES UNDERSTANDING.
--- NOTE | 2019-09-18 10:32 | NUR ---
Patient sitting up in chair watching tv. Respirations even and unlabored. Call light within reach.
--- NOTE | 2019-09-18 11:16 | NUR ---
PT in room working with patient
--- NOTE | 2019-09-18 12:00 | NUR ---
Patient sitting up in chair watching tv. Lunch delivered, water refreshed. Warm blanket provided. Denies further needs, call light within reach.
--- NOTE | 2019-09-18 12:39 | NUR ---
WENT TO CHECK ON PT-UNABLE TO GO IN ROOM BECAUSE OF PRECAUTIONS. PT ASLEEP WILL CHECK AGAIN
--- NOTE | 2019-09-18 13:42 | NUR ---
Patient returns to bed independently. Patient now sleeping in bed, respirations even and unlabored. Call light within reach.
--- NOTE | 2019-09-18 13:59 | NUR ---
Patient requests warm blankets, which are provided. Patient sleeping in bed, respirations even and unlabored. Call light within reach.
--- NOTE | 2019-09-18 15:00 | NUR ---
Patient's daughter called for update on patient, which is provided. Patient sleeping in bed at this time, call light within reach.
--- NOTE | 2019-09-18 15:30 | NUR ---
Patient up to chair independently. Warm blankets provided. Message that daughter called relayed to patient - now patient using phone to call daughter back. Denies further needs, call light within reach.
--- NOTE | 2019-09-18 17:26 | NUR ---
Patient sitting up in chair watching tv. Son visits patient and communicates with patient outside of room through phone. Dinner delivered. PM medications given. Warm blankets provided, water refreshed. Patient denies further needs, call light within reach.
--- NOTE | 2019-09-18 20:32 | NUR ---
SHIFT REPORT RECEIVED FROM JULIAN COFFMAN. ASSESSMENT COMPLETED. PT IS ALERT/ORIENTED, REPORTS MILD HEADACHE PAIN; STATES SHE WILL SEE IF IT RESOLVES WITH SLEEP, OTHERWISE SHE WILL CALL FOR TYLENOL. ASSESSMENT LIMITED DUE TO PAPR PPE, HOWEVER, PT DENIES CHEST PAIN, SOB, AND NAUSEA. SKIN GROSSLY INTACT, NO IV PRESENT. PT AMBULATED FROM CHAIR TO BATHROOM AND BACK TO BED WITHOUT ISSUE, VOIDED X1. REFUSES NEED FOR MIRALAX TONIGHT. FRESH ICE WATER AND WARM BLANKETS PROVIDED. PT DENIES REQUESTS AT THIS TIME, CALL LIGHT WITHIN REACH.
--- NOTE | 2019-09-18 22:26 | NUR ---
PT AMBULATED TO BATHROOM AND BACK TO BED WITHOUT ISSUE. CALL LIGHT REMAINS WITHIN REACH. NO REQUESTS AT THIS TIME.
--- NOTE | 2019-09-18 23:58 | NUR ---
PT APPEARS TO BE SLEEPING, NO APPARENT DISTRESS. RESPIRATIONS EVEN AND UNLABORED. WILL ALLOW FOR REST AND CONTINUE TO MONITOR.
--- NOTE | 2019-09-19 02:57 | NUR ---
PT CONTINUES TO SLEEP SOUNDLY, NO APPARENT DISTRESS. RESPIRATIONS APPEAR EVEN AND UNLABORED ON ROOM AIR. WILL ALLOW FOR REST AND CONTINUE TO MONITOR.
--- NOTE | 2019-09-19 06:13 | NUR ---
PT CONTINUES TO SLEEP, NO APPARENT DISTRESS. RESPIRATIONS EVEN AND UNLABORED. WILL ALLOW FOR REST AND CONTINUE TO MONITOR.
--- NOTE | 2019-09-19 07:10 | NUR ---
REPORT RECIEVED. PATIENT IS SLEEPING, NO DISTRESS NOTED.
--- NOTE | 2019-09-19 08:40 | NUR ---
UP TO CHAIR FOR BREAKFAST. ASSESSMENT DONE. POC DISCUSSED WITH PATIENT. IS UNDERSTANDING.
--- NOTE | 2019-09-19 09:15 | NUR ---
TOOK BREAKFAST WELL.
--- NOTE | 2019-09-19 09:30 | NUR ---
TOOK SHOWER, AFTER SHOWER DRESSED SELF IN JEANS AND SHIRT. MOVING WELL. STABLE ON FEET. IS TIRED AFTER ACTIVITY, DENEIS SHORTNESS OF BREATH. ENC DEEP BREATHING.
--- NOTE | 2019-09-19 10:00 | NUR ---
Spoke with pt's son Godfrey. He was wondering if I had faxed papers to Dr. Del Cid and to his insurance. Let him know I had. Updated I am still looking for placement for his mom and confirmed the family would be ok if she was sent to [place] to [facility]. They are willing to accept Covid + patients. State they are full today, but will have openings by Wednesday. Face sheet, H&P, Progess notes, medications, PT/OT eval and notes, Labs faxed to Raffi at [facility] [phone] fax, phone [phone].
--- NOTE | 2019-09-19 10:02 | NUR ---
SITTING ON COUCH, WATCHING TV AND LOOKING OUT THE WINDOW.
--- NOTE | 2019-09-19 10:30 | NUR ---
WARM BLANKETS GIVEN PRN.
--- NOTE | 2019-09-19 12:13 | NUR ---
OT HERE TO WORK WITH PATIENT. PATIENT IS SITTING IN CHAIR.
--- NOTE | 2019-09-19 13:00 | NUR ---
TOOK LUNCH FAIR. TALKED WITH PATIENT EARILER ABOUT TAKING A WALK OUTSIDE TODAY. PATIENT IS AGREEABLE. MASK APPLIED TO PATIENT, MYSELF, USING [address], FACE SHEILD, GOWN GLOVES. WALK WAS APPROVED BY NURSING SUPERVISIOR, CCU MERCHANDISING PROFESSOR, XANDER BELLO (ADMINSTRATION). 1330. PATIENT AMBULATED FROM 126 TO THE BENCH OUTSIDE OF ED. PATIENT AND I SAT ON THE BENCH AND VISITED FOR APPROX 15 MIN THEN WALKED BACK TO ROOM 126. THIS PROCESS LASTED APPROX 25 MIN. O2 SAT ON RETURN TO ROOM-95, HR-72. PATIENT IS TIRED FROM WALK, DENEIS SHORTNESS OF BREATH OR PAIN.
--- NOTE | 2019-09-19 14:00 | NUR ---
PHYS THERAPY PERSONAL AWARE OF PATIENT LONG WALK. I SUGGESTED TO HOLD PHYS THERAPY SECESSION FOR THE DAY. NO THERAPY DONE BY PHYS THERAPIST TODAY. PATIENT CONTINUE TO SIT IN CHAIR. NO DISTRESS NOTED.
--- NOTE | 2019-09-19 14:00 | NUR ---
Received call from Raffi at [facility]. They will accept Radene on or Wednesday. Son notified. Called [facility] and they are not transporting any positive covid pts. Called and spoke with [facility] and they can transport on Wednesday or possible depending who the retail delivery driver is. He ask I text him when I know for sure the day pt will dc. Cost will be around $150.00. They do transport covid + pts. with a mask in place.
--- NOTE | 2019-09-19 14:09 | NUR ---
PT REPORTEDLY HAVING A GOOD DAY ACCORDING TO JULIAN JO. PT STILL HAS NOT REQUESTED PASTORAL VISIT. PT ALSO STILL IN PRECAUTIONS
--- NOTE | 2019-09-19 14:56 | NUR ---
COVID SWAB ORDERED AND DONE BY RT.
--- NOTE | 2019-09-19 15:58 | NUR ---
Called and spoke with Shoaib. Updated [facility] will take her in [place]. She states she doesn't want to leave town as family cannot visit. UPdated no families can visit in [place]. She states she will go, but doesn't really want to. She is hoping her Covid test she had today, comes back negative and she can go the an Assisted Living in town.
--- NOTE | 2019-09-19 16:00 | NUR ---
Called and left a message for Godfrey informing of conversation I had with his mother.
--- NOTE | 2019-09-19 17:00 | NUR ---
upon entering room, TO GIVE PATIENT TRAY, IS VERY UPSET AND STRESSED ABOUT DISCHARGE TO A CARE [facility]. TALKED WITH PATIENT REGARDING THIS, EMOTIONAL SUPPORT GIVEN.
--- NOTE | 2019-09-19 17:30 | NUR ---
EATING DINNER, TV ON.
--- NOTE | 2019-09-19 18:30 | NUR ---
PATIENT STATES SHE HAS BEEN A FEWW LOOSE STOOLS AND URINATED SEVERAL TIMES TODAY. HAS BEEN UP AND AROUND IN ROOM. ENCOURAGED TO BE INDEPENDENT POSSIBLE.
--- NOTE | 2019-09-19 20:22 | NUR ---
SHIFT REPORT RECEIVED FROM JULIAN JO. ASSESSMENT COMPLETED, LIMITED DUE TO PAPR PPE. PT IS ALERT/ORIENTED, DENIES PAIN INCLUDING CHEST PAIN. REMAINS ON ROOM AIR, DENIES SOB. DENIES NAUSEA. SKIN GROSSLY INTACT, NO EDEMA NOTED. NO IV PRESENT. PT AMBULATED TO BATHROOM INDEPENDENTLY TO VOID AND THEN BACK TO BED. REPORTS LOOSE BM TODAY SO MIRALAX HELD. EVENING MEDICATIONS TAKEN WITHOUT ISSUE. WARM BLANKETS AND FRESH ICE WATER PROVIDED. PT DENIES FURTHER REQUESTS, CALL LIGHT AND BELONINGS WITHIN REACH.
--- NOTE | 2019-09-19 22:36 | NUR ---
PT APPEARS TO BE SLEEPING, NO APPARENT DISTRESS. RESPIRATIONS EVEN AND UNLABORED, REMAINS ON ROOM AIR. WILL ALLOW FOR REST AND CONTINUE TO MONITOR.
--- NOTE | 2019-09-20 02:16 | NUR ---
PT CONTINUES TO SLEEP, CHEST RISE AND FALL OBSERVERED, RESPIRATIONS EVEN AND UNLABORED. NO APPARENT DISTRESS. WILL ALLOW FOR REST AND CONTINUE TO MONITOR.
--- NOTE | 2019-09-20 05:38 | NUR ---
PT CONTINUES TO SLEEP SOUNDLY, NO APPARENT DISTRESS. RESPIRATIONS EVEN AND UNLABORED ON ROOM AIR. WILL ALLOW FOR REST AND CONTINUE TO MONITOR.
--- NOTE | 2019-09-20 06:56 | NUR ---
PT UP TO BATHROOM INDEPENDENTLY. IN TO GIVE MORNING MEDS, PT TOOK WITHOUT ISSUE. FRESH ICE WATER AND WARM BLANKETS PROVIDED. PT ALSO PROVIDED WITH COPY OF 'S OBITUARY FROM THE [employer], PT HAPPY TO HAVE IT AND IS NOW SITTING ON THE COUCH AND READING IT. NO FURTHER REQUESTS AT THIS TIME.
--- NOTE | 2019-09-20 07:00 | NUR ---
Report received, orders acknowledged. Patient sitting up on couch looking out window. Respirations even and unlabored.
--- NOTE | 2019-09-20 08:00 | NUR ---
Patient sitting up in chair watching tv. Patient denies pain or SOB. AM medications provided. Vital signs taken, assessment complete. Lung sounds diminished in bases. Warm blankets provided, water refreshed. Denies further needs at this time, call light within reach.
--- NOTE | 2019-09-20 08:52 | NUR ---
Baron Bojorquez updated on patient status
--- NOTE | 2019-09-20 10:41 | NUR ---
Patient sitting up in chair watching tv. Smiles and waves through door. Respirations even and unlabored. Denies needs at this time, call light within reach.
--- NOTE | 2019-09-20 11:30 | NUR ---
OT in room working with patient
--- NOTE | 2019-09-20 13:05 | NUR ---
DR. SANTOS CALLED AND UPDATED ON PATIENT'S MOST RECENT COVID TEST WHICH CAME BACK NEGATIVE TODAY.
--- NOTE | 2019-09-20 13:50 | NUR ---
CONNECTED WITH PT'S SON RODOLFO AND JUST REAFFIRMED OUR CONCERN AND CARE FOR THEM A FAMILY. HE THANKED ME AND ACKNOWLEDGED, WILL CONTINUE TO FOLLOW NEEDED
--- NOTE | 2019-09-20 14:45 | NUR ---
Patient notified of negative COVID test result. Patient elated, states "I'm so thankful!" Requests telephone to call family. Denies further needs at this time, call light within reach.
--- NOTE | 2019-09-20 15:57 | NUR ---
PATIENT AND THIS INTEGRATION ENGINEER AMBULATED THE HALLS IN [facility]. WENT TO THE END OF THE TILE, PATIENT WAS FEELING A LITLLE TIRED AND ASKED TO NOT CONTINUE ANY FURTHER. WALKED BACK TO PATIENTS ROOM AND BACK TO CHAIR, LOOKING THROUGH STACK OF FAMILY PHOTOS. ICE WATER REFRESHED. CALL LIGHT IN REACH.
--- NOTE | 2019-09-20 16:01 | NUR ---
PATIENT WILL BE TRANSFERRING TO [facility], REFUSED SHOWER, (STATES SHE JUST TOOK ONE YESTERDAY)
--- NOTE | 2019-09-20 16:29 | NUR ---
Patient sitting up in chair reading newspaper and cards from family. Denies needs at this time, call light within reach.
--- NOTE | 2019-09-20 18:10 | NUR ---
CALLED BROOKE TO LET HIM KNOW HIS MOM WAS MOVED TO THE MEDICAL FLOOR. HE PLANS ON COMING TO SEE HER TOMORROW.
--- NOTE | 2019-09-20 18:58 | NUR ---
ADMINSTERED SCHED MEDS. PT EATING DINNER.
--- NOTE | 2019-09-20 19:20 | NUR ---
bedside report from Adore Lackey rn and learning disabilities teacher Gege present. Pt with mild pleasant dementia with recent loss of who was caregiver. both pt and were addmitted here with covid 19 - was primary manager intensive care and - pt mrs. knowles is recovering and today cleared and tested negative for covid. call light in reach and denies needs at this time.
--- NOTE | 2019-09-20 21:20 | NUR ---
VITALS TAKEN, I/O COMPLETE - REPORTS GOOD DINNER. PM MEDS GIVEN ORALLY . WARM BLANKETS GIVEN AND HEAT TURNED UP PER PT REQUEST. DENIES NEEDS.
--- NOTE | 2019-09-21 00:25 | NUR ---
CHECKED ON PT FROM DOOR NOT TO AWAKEN. RESP RATE REGULAR - APPEARS SLEEPING. CALL LIGHT IN REACH.
--- NOTE | 2019-09-21 04:42 | NUR ---
RESP EVEN, APPEARS SLEEPING, CALL LIGHT IN REACH -
--- NOTE | 2019-09-21 04:52 | NUR ---
PRECAUTIONS FOR COVID IN PLACE. PT HAS 1ST NEG TEST 09/19. FIRST ADMITTED ON 08/30/19 FOR PNEUMONIA AND COVID FROM PCP - WAS ALREADY HERE... HE SUBSEQUENTLY DURING THIS STAY - PT IS GREIVING LOSS OF AND LENGTHY STAY IN ISOLATION. SHE IS NOW A SWG BED PT AND PLANS TO GO TO [facility] POSSIBLY? 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 PT IS ON RA AND NO SX OF DISTRESS. TOLL REG DIET, DENIES NEEDS, UP IN ROOM INDEPENDENT. HAS VOIDED ON OWN AND REPORTS BM 09/19. TAKES PO MEDS WELL, USES CALL LIGHT WELL.
--- NOTE | 2019-09-21 05:04 | NUR ---
PRECAUTIONS FOR COVID IN PLACE. PT HAS 1ST NEG TEST 09/19. FIRST ADMITTED ON 08/30/19 FOR PNEUMONIA AND COVID FROM PCP - WAS ALREADY HERE... HE SUBSEQUENTLY DURING THIS STAY - PT IS GREIVING LOSS OF AND LENGTHY STAY IN ISOLATION. 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 PT IS ON RA AND NO SX OF DISTRESS. TOLL REG DIET, DENIES NEEDS, UP IN ROOM INDEPENDENT. HAS VOIDED ON OWN AND REPORTS BM 09/19. TAKES PO MEDS WELL, USES CALL LIGHT WELL.
--- NOTE | 2019-09-21 06:22 | NUR ---
pt reports a bm and urine as she was independent last night in the bathroom. denies needs at this time, in for am medication po thyroid med. call light in reach.
--- NOTE | 2019-09-21 07:33 | NUR ---
Recieved report from JULIAN Avitia.
--- NOTE | 2019-09-21 08:45 | NUR ---
PTS DAUGHTER ARRIVED. SHE HAD A FACE MASK ON AND GOGGLES.
--- NOTE | 2019-09-21 10:45 | NUR ---
Was able to visit pt in her room today. She complains she has felt so isolated. Discussed families concern for her to go home alone. Pt states she will do whatever needs to be done. Her first choice is to go to [facility]. Let her know I have a call in to them, but have not heard from them as of yet. Son has contacted [facility] and Ericka will be here Wednesday for evaluation.
--- NOTE | 2019-09-21 10:48 | NUR ---
SITTING UP IN CHAIR. DENIES NEEDS AT THIS TIME. CALL LIGHT IN REACH.
--- NOTE | 2019-09-21 12:08 | NUR ---
Sitting up in chair, working with OT staff. Lunch tray provided. Denies other needs at this time.
--- NOTE | 2019-09-21 13:55 | NUR ---
SITTING UP IN RECLINER AT THIS TIME, VISITING WITH PT.
--- NOTE | 2019-09-21 14:00 | NUR ---
Received a call from Ruba at [facility]. She states they have staffing issues and are unable to take this pt at this time. They have placed her on the waiting list. Called and spoke with Ericka from [facility]. She plans on visiting pt tomorrow for assessment. They are unable to take this pt until Wednesday.
--- NOTE | 2019-09-21 15:53 | NUR ---
Sitting up in chair, feet elevated. Denies needs at this time. Call light in reach, bed rails up X2.
--- NOTE | 2019-09-21 16:58 | NUR ---
Sits up in chair most of today. No complaints of pain or discomfort. Showers this afternoon. Second covid swab obtained this morning. No results yet. Continent of urine. Continues to work with PT and OT.
--- NOTE | 2019-09-21 19:30 | NUR ---
PATIENT RESTING QUIETLY IN BED WATCHING TV. CALL LIGHT IN REACH.
--- NOTE | 2019-09-21 20:30 | NUR ---
vs and I&Os complete. warm blankets given. nothing further needed at this time.
--- NOTE | 2019-09-21 22:30 | NUR ---
PATIENT RESTING QUIETLY SUPINE IN BED, EYES CLOSED RESPIRATIONS REGULAR AND EVEN, CALL LIGHT IN REACH.
--- NOTE | 2019-09-21 23:50 | NUR ---
PATIENT RESTING QUIETLY IN BED SUPINE, EYES CLOSED, RESPIRATIONS REGULAR AND EVEN. CALL LIGHT IN REACH.
--- NOTE | 2019-09-22 00:35 | NUR ---
PATIENT RESTING QUIETLY ON HER RIGHT SIDE, EYES CLOSED, RESPIRATIONS REGULAR AND EVEN. CALL LIGHT IN REACH.
--- NOTE | 2019-09-22 02:37 | NUR ---
PATIENT RESTING QUIETLY ON HER LEFT SIDE. EYES CLOSED. RESPIRATIONS REGULAR AND EVEN. CALL LIGHT IN REACH.
--- NOTE | 2019-09-22 04:38 | NUR ---
PATIENT HAS RESTED QUIETLY ALL NIGHT WITH NO NEEDS OR ISSUES. CURRENTLY RESTING ON HER LEFT SIDE, EYES CLOSED, CALL LIGHT IN REACH.
--- NOTE | 2019-09-22 07:21 | NUR ---
REPORT RECEIVED FROM JULIAN HERNANDEZ. PT RESTING IN BED. PT DENIES PAIN AND NAUSEA AND REPORTS SHE IS PLANNING TO TRAVEL WITH RODOLFO TODAY TO THE HOME. BREAKFAST ORDER PLACED. NO ADDITIONAL REQUESTS OR CONCERNS AT THIS TIME. CALL LIGHT WITHIN REACH.
--- NOTE | 2019-09-22 09:15 | NUR ---
PATIENT SITTING UP IN CHAIR. PATIENT WILL BE GOING TO HER HUSBANDS VIEWING TODAY, THIS LIEUTENANT COLONEL CURLED PATIENTS HAIR IN PREPARATION. PATINE STILL "PICKING" AT BREAKFAST, CALL LIGHT IN REACH. VITALS DONE AND CHARTED. NO OTHER NEEDS AT THIS TIME.
--- NOTE | 2019-09-22 10:00 | NUR ---
MORNING ASSESSMENT AND MEDICATION DUE. PT UP TO CHAIR WATCHING TV. PT DENIES PAIN AND NAUSEA. PT REPORST "FEELING REALLY GOOD." PT STEADY ON FEET WITH AMBULATION. PT DRESSED IN CLOTHES FROM HOME. LUNG SOUNDS CLEAR. 98% ON ROOM AIR. PT REPRORTS SHE IS EXPECTING A VISIT FROM RODOLFO HER SON THIS AFTERNOON. PT DEMONSRATES USE OF I.S. REACHING 750ML. NO ADDITIONAL REQUESTS OR COMPLAINTS. CALL LIGHT WITHIN REACH.
--- NOTE | 2019-09-22 11:36 | NUR ---
Spoke with Ericka from [facility]. She will be here at 12 to complete assessment. Per Rn, son will take Radene to mortuary at 1330. Confirmed with Ericka, they will not need a further Covid test.
--- NOTE | 2019-09-22 11:52 | NUR ---
PT UPDATED ON PLAN OF CARE, VISITION WITH [facility] THIS AFTERNOON AND TRAVEL WITH HER SON TO SEE HER HUSBANDS BODY. PT VERBALIZES UNDERSTANDING THAT SHE WILL NEED TO WEAR A MASK. PT STATES SHE IS UNSURE ABOUT GOING TO [facility] AND WOULD LIKE TO TALK TO THE SPRING FLOOR SERVICE WORKER. FORTINO UPDATED AND STATES SHE WILL TALK WITH PT. PT EATING LUNCH. NO ADDITIONAL REQUESTS OR COMPLAINTS. CALL LIGHT WITHIN REACH.
--- NOTE | 2019-09-22 12:10 | NUR ---
Ericka from [facility] here for assessment. Request I come to room as pt has changed her mind and does not want to. Requested pt get information and discuss with son. Let her know other facilities she requested are full and cannot take her. [facility] has rooms, but she had declined to go there. She will discuss with her son.
--- NOTE | 2019-09-22 12:51 | NUR ---
PATIENT SITTING UP IN CHAIR VISITING WITH RN. I&OS ARE CHARTED. CALL LIGHT IN REACH. NO OTHER NEEDS AT THIS TIME
--- NOTE | 2019-09-22 12:59 | NUR ---
THIS RN TO ROOM TO CHECK ON PT. PT FINISHED TALKING WITH REPRESENTITIVE FROM [facility]. PT CONTINUES TO STATE SHE IS "UNSURE" ABOUT TRANSFER TO [facility]. EDUCATION AND THERAPUTIC COMMUNICATION DONE WITH PT. PT STATES "I'M GOING TO THINK ABOUT IT THIS AFTERNOON." PT FINISHED WITH LUNCH. DENIES ADDITIONAL REQUESTS OR COMPLAINTS. CALL LIGHT WITHIN REACH.
--- NOTE | 2019-09-22 13:30 | NUR ---
TC/SB temporary abscence of resident form signed by Dr. Handy and Shoaib. Pt's son here. Updated to pts concerns to go to [facility] and he will discuss with her. Updated pt must keep mask in place at all times and I am sending gloves in case she touches her husbands body during viewing. Understanding stated. Son states they plan on going straight to mortuary and straight back.
--- NOTE | 2019-09-22 14:00 | NUR ---
PTS SON RODOLFO ARRIVED TO TAKE PT TO HOME TO SAY GOODBY TO HER . RODOLFO UPDATED ON PLAN OF CARE BY CASE MANAGEMENT. PT TRANSFERS SELF TO WHEELCHAIR AND LEAVES CLINIC WITH MASK IN PLACE. HAND CRUSHER WET GROUND MICA USED. NO ADDITIONAL REQUESTS OR COMPLAINTS.
--- NOTE | 2019-09-22 14:45 | NUR ---
PT RETURNED FROM HOME WITH RODOLFO. PT REPORTS HER VISIT WAS "VERY GOOD." PICTURES SHOWN TO THIS RN. PT REQUESTS COFFEE AND RODOLFO REQUESTS COKE. PROVIDED REQUESTED. BOTH STATE THEY WOULD LIKE TO SPEAK WITH CASE MANAGMENT. FORTINO IN CASE MANAGMENT NOTIFIED. NO ADDITIONAL REQUESTS OR COMPLAINTS. CALL LIGHT WITHIN REACH.
--- NOTE | 2019-09-22 15:36 | NUR ---
To room at son's request. Pt has decided to go to [facility] as no other facilities have accepted her at this time. She would like to be on the waiting list at [facility] and [facility]. Requested son to call them frequently to see if there are openings and I have already requested space at both places. Medicare letter of DC from TC given to pt. as she plans on dc Wednesday and [facility] is closed on Wednesday. Survery also given.
--- NOTE | 2019-09-22 16:16 | NUR ---
THIS RN TO ROOM TO CHECK ON PT. PT VISITING WITH GRANDSON. MEDICATION GIVEN (SEE MAR). DINNER ORDER PLACED. PT DENIES PAIN AND NAUSEA. WATER REFILLED. NO ADDITIONAL REQUESTS OR COMPLAINTS AT THIS TIME. CALL TEODORO BANEGAS.
--- NOTE | 2019-09-22 16:58 | NUR ---
house orders signed by Dr. Handy, med list, H&P faxed to Ericka from [facility] [phone].
--- NOTE | 2019-09-22 17:43 | NUR ---
THIS RN TO ROOM TO CHECK ON PT. PT FINISHED WITH DINNER, GOOD APPITITE NOTED PT AT 70% OF DINNER. PT UP TO RESTROOM INDEPENDANTLY. STEADY ON FEET. PT BACK TO CHAIR. TALKS ABOUT VISITING [facility]US TODAY WITH POSITIVE RECOLECTIONS. WARM BLANKETS PROVIDED PER PT REQUEST. NO ADDITIONAL REQUESTS OR COMPLAINTS AT THIS TIME. CALL LIGHT WITHIN REACH.
--- NOTE | 2019-09-22 17:50 | NUR ---
PT HERE FOR POSITIVE COVID-19 RESULTS. 2 NEGATIVE RESULTS AT THIS POINT IN PTS STAY. PT OFF CAMPUS TO DAY TO VISIT AT HOME, ACCOMPANIED BY RODOLFO, PTS SON. PT IN GOOD SPIRITS THIS SHIFT AND TELLING STORIES ABOUT TITUS. PT DENIES PAIN AND NAUSEA. GOOD APPITIE NOTED. PT DRESSED AND UP TO CHAIR FOR MOST OF THIS SHIFT. ACITIVES PROVIDED. PT VOIDING QUANTITY SUFFICIENT. PT ANTICIPATING DISCHARGE TO [facility] ON WEDNESDAY. PT USES CALL LIGHT APPROPRIATLY.
--- NOTE | 2019-09-22 18:17 | NUR ---
PATIENT SITING UP IN CHAIR READING NEWSPAPER. I&OS DONE AND CHARTED. CALL LIGHT WITHIN REACH. NO OTHER NEEDS
--- NOTE | 2019-09-22 19:10 | NUR ---
SHIFT REPORT RECEIVED FROM YEOL JORDAN. PT UP IN CHAIR, WATCHING TV. NO NEEDS AT THIS TIME. CALL LIGHT IN REACH.
--- NOTE | 2019-09-22 21:28 | NUR ---
ASSESSMENT, VS AND I&O COMPLETED. LUNGS CLEAR. PT DENIES PAIN AND SOB. CMS INTACT. SCHEDULED MED PROVIDED. NO OTHER NEEDS AT THIS TIME. CALL LIGHT IN REACH.
--- NOTE | 2019-09-22 22:17 | NUR ---
PT RESTING IN BED, EYES CLOSED. RR EVEN, UNLABORED. CALL LIGHT IN REACH.
--- NOTE | 2019-09-23 00:08 | NUR ---
PT RESTING IN BED, EYES CLOSED. RR EVEN, UNLABORED. CALL LIGHT IN REACH.
--- NOTE | 2019-09-23 02:05 | NUR ---
PT RESTING IN BED, EYES CLOSED. RR EVEN, UNLABORED. CALL LIGHT IN REACH.
--- NOTE | 2019-09-23 04:00 | NUR ---
PT RESTING IN BED, EYES CLOSED. RR EVEN, UNLABORED. CALL LIGHT IN REACH.
--- NOTE | 2019-09-23 05:08 | NUR ---
PT SLEPT MOST THE SHIFT. VSS, UOS. PT INDEPENDENT IN ROOM WITH CANE. NO PAIN OR SOB STATED.
--- NOTE | 2019-09-23 06:15 | NUR ---
pt awake in room. scheduled med provided. no other needs at this time. call light in reach.
--- NOTE | 2019-09-23 07:11 | NUR ---
REPORT RECEIVED FROM JULIAN POND. PT RESTING IN BED WITH EYES CLOSED. RESPIRATIONS EVEN AND UNLABORED. BED RAILS UP. CALL LIGHT WITHIN REACH. PT ALLOWED TO REST.
--- NOTE | 2019-09-23 09:46 | NUR ---
MORNING ASSESSMENT AND MEDICATION DUE. PT UP TO CHAIR AND FINISHED WITH BREAKFAST. PT DENIES PAIN AND NAUSEA. PT DRESSED IN HOME CLOTHES AND AMBULATES AROUND ROOM INDEPENDANTLY, STEADY ON FEET. VITALS SIGNS TAKEN. ASSESSMENT DONE. PT ORIENTED TO ALL BUT OCCATIONALLY FORGETFUL. PT TALKS ABOUT MOVING TO [facility] WITH EXPECTATION ADN ACCEPTACE. NO ADDITIONALR EQUESTS OR COMPLAINTS AT THIS TIME. CALL LIGHT WITHIN REACH. GIS ENGINEER WORKIGN WITH PT.
--- NOTE | 2019-09-23 10:38 | NUR ---
THIS RN TO ROOM TO CHECK ON PT. PT UP TO CHAIR WATCHING TV. PT DENIES PAIN AND NAUSEA. DEMONSTRATES USE OF I.S. REACHING 750ML. PT DENIES ADDITIONAL REQUESTS OR COMPLAINTS STATING "I'M JUST GETTING MY THOUGHTS TOGETHER." CALL LIGHT WITHIN REACH.
--- NOTE | 2019-09-23 12:33 | NUR ---
THIS RN TO ROOM TO CHECK ON PT. PT UP TO CHAIR WATCHING TV. PT TALKS ABOUT HER SON COMING TO VISIT. PT DENIES PAIN AND NAUSEA. LUNCH ARRIVED. I.S. USE DEMONSTRATED, PT REACHES 750ML. NO ADDITIONAL REQUESTS OR COMPLAINTS. CALL LIGHT WITHIN REACH.
--- NOTE | 2019-09-23 13:07 | NUR ---
PT UP TO AMBULATE WITH PHYSICAL THERAPY. PT DENIES PAIN AND NAUSEA. TOLERATING AMBULATION WELL, STEADY ON FEET.
--- NOTE | 2019-09-23 14:15 | NUR ---
THIS RN TO ROOM TO CHECK ON PT. PT VISITING WITH FRIEND. PT DENIES PAIN AND NAUSEA AND REPORTS SHE HAS NO REQUESTS OR COMPLAINTS. CALL LIGHT WITHIN REACH.
--- NOTE | 2019-09-23 15:22 | NUR ---
PATIENT RESTING IN CHAIR, EYES CLOSED. I&OS CHARTED. CALL LIGHT WITHIN REACH.
--- NOTE | 2019-09-23 15:30 | NUR ---
THIS RN TO ROOM TO CHECK ON PT. PT RESTING WITH EYES CLOSED UP IN CHAIR. RESPIRATIONS EVEN AND UNLABORED. PT ALLOWED TO REST WITHOUT DISURBANCE. CALL LIGHT WITHIN REACH.
--- NOTE | 2019-09-23 17:05 | NUR ---
THIS RN TO ROOM TO CHECK ON PT, MEDICATION DUE. PT WATCHING TV. MEDICATION GIVEN. PT UP TO AMBULATE IN RODRIGUEZ WITH THIS RN, MASK IN PLACE X1 LAP IN RODRIGUEZ. PT BACK TO ROOM, UP TO RESTROOM, AND THEN TO CHAIR WITH STAND BY ASSIST. PT DENIES PAIN AND NAUSEA. PT IS ANTICIPATING DINNER. WATER REFILLED. NO ADDITIOANLR EQUESTS OR COMPLAINTS. CALL LIGHT WITHIN REACH.
--- NOTE | 2019-09-23 18:05 | NUR ---
PT SWING BED FOR RECONDITIONING AFTER COVID 19. TWO NEGATIVE TEST RESULTS IN AND PT IS ANTICIPATING DISCHARGE ON WEDNESDAY. PHYSICAL THERAPY THIS SHIFT. PT UP TO AMBULATE IN [place]RIG[place] TWICE. PT DENIES PAIN OR NAUSEA. O2 SATURATIONS ABOVE 92% ON ROOM AIR. I.S. USE ENSURED, PT REACHES 750ML. PT REPORTS FEELING COMFORTABLE WITH DISCHRAGE TO [facility]. PT VOIDING QUANTITY SUFFICIENT. PT USES CALL LIGHT APPROPRAITLY.
--- NOTE | 2019-09-23 19:00 | NUR ---
IN ROOM FOR REPORT, PT IS AWAKE IN THE CHAIR. SHE DENIES NEEDS AT THIS TIME. CALL LIGHT IS CLOSE.
--- NOTE | 2019-09-23 20:52 | NUR ---
IN ROOM TO ASSESS PT AND ADMINISTER MEDICATIONS. PT DENIED NEED FOR MIRALAX TONIGHT AND HAD A SOFT BM THIS AM. SHE DENIES PAIN, COUGH AND SOB. SEE ASSESSMENT. VS ARE STABLE AND PT TALKED ABOUT HER AND HOW SHE IS TRYING TO FIND A "NEW NORMAL". SHE HOPES TO CONTINUE TO GET BETTER AT [facility] AND RETURN HOME AT SOME POINT. PT DENIES FURTHER NEEDS AT THIS TIME AND CALL LIGHT IS CLOSE.
--- NOTE | 2019-09-23 22:49 | NUR ---
PT IS RESTING WITH EYES CLOSED, RR IS EVEN AND NONLABORED. CALL LIGHT IS CLOSE.
--- NOTE | 2019-09-24 01:06 | NUR ---
PT IS RESTING WITHE EYES CLOSED RR IS EVEN AND NONLABORED. CALL LIGHT IS CLOSE.
--- NOTE | 2019-09-24 03:31 | NUR ---
PT IS RESTING WITH EYES CLOSED, RR IS EVEN AND NONLABORED. CALL LIGHT IS CLOSE.
--- NOTE | 2019-09-24 05:00 | NUR ---
PT IS RESTING WITH EYES CLOSED, RR IS EVEN AND NONLABORED. CALL LIGHT IS CLOSE.
--- NOTE | 2019-09-24 06:18 | NUR ---
PT IS RESTING WITH EYES CLOSED, RR IS EVEN AND NONLABORED. CALL LIGHT IS CLOSE.
--- NOTE | 2019-09-24 06:40 | NUR ---
ADMINISTERED THYROID MED. PT REPORTS SLEEPING WELL AND STATES SHE ONLY WOKE UP ONCE. FRESH WATER IS AT BEDSIDE AND SHE DENIES FURTHER NEEDS. CALL LIGHT IS CLOSE.
--- NOTE | 2019-09-24 07:45 | NUR ---
PT RESTING IN BED DENIES SOB, OR OTHER DISCOMFORTS. BREAKFAST ORDERED, PERSONAL CARE ITEMS PROVIDED.
--- NOTE | 2019-09-24 10:43 | NUR ---
PATIENT UP IN ROOM, VITALS AND I&OS DONE AND CHARTED. FRESH ICE WATER GIVEN, THIS DAY CARE AIDE ASSISTED PATIENT IN CURLING HER HAIR, PATIENT REPORTS FEELING A LITTLE GLOOMY "REALITY IS STARTING TO SET IN" CALL LIGHT IN REACH. NO OTHER NEEDS
--- NOTE | 2019-09-24 11:11 | NUR ---
DAUGHTER HERE EARLIER TO VISIT. PT UP IN ROOM DOING SELF CARES AT THIS TIME.
--- NOTE | 2019-09-24 13:55 | NUR ---
PATIENT AWAKE IN CHAIR, VISITOR IN ROOM. I&OS CHARTED. NO OTHER NEEDS AT THIS TIME
--- NOTE | 2019-09-24 14:02 | NUR ---
PT HAS BEEN UP AND WORKED WITH P/T. FAMILY IN VISITING RIGHT NOW.
[2019-09-24] MEDS ORDERED: FAMOTIDINE20 MG PO (16:52)
[2019-09-24] MEDS ORDERED: POLYETHYLENE GL17 GM PO (16:52)
--- NOTE | 2019-09-24 17:14 | NUR ---
PT AMBULATES FULL LENGTH OF THE RODRIGUEZ THEN RIDES IN W/C TO TOUR ART WORK OF HOSPITAL. RETURNS TO MED SURG FLOOR AMBULATES THE LENGTH OF THE RODRIGUEZ BACK. TOLERATED WELL BY PT. DR KABA IN TO SEE HER
--- NOTE | 2019-09-24 19:15 | NUR ---
REPORT RECEIVED FROM JULIAN EARLY. pt UP IN CHAIR, VISITING WITH FAMILY.
--- NOTE | 2019-09-24 20:18 | NUR ---
pt CALLING OUT. SBA TO RESTROOM WITH FWW FOR VOID, INCONTINENT IN ATTENDS. ATTENDS CHANGED. pt CONFUSED, REORIENTATION TO LOCATION, EVENT. ORIENTED TO DATE. pt DENIES PAIN. CALL LIGHT IN REACH. BED ALARM ON.
--- NOTE | 2019-09-24 21:24 | NUR ---
VITALS AND I&OS DONE AND CHARTED. BEDSIDE TABLE AND CALL LIGHT IN REACH. PT STATES SHE FEELS SICK TO HER STOMACH. I INFORMED HER RN KODAK.
--- NOTE | 2019-09-24 21:35 | NUR ---
CALL LIGHT ANSWERED. pt C/O NAUSEA. PRN SL ONDANSETRON ADMINSITERED NIO. pt RESTING IN BED, FEELS "QUEASY". LUNG SOUNDS CLEAR THROUGHOUT. ASSESSMENT COMPLETE. VSS. CALL LIGHT IN REACH. WARM BLANKETS PROVIDED. NO ADDITIONAL REQUESTS.
--- NOTE | 2019-09-25 01:00 | NUR ---
CHECKED ON pt. RESTING IN BED WITH EYES CLOSED. BREATHING UNLABORED. LIGHTS OFF IN ROOM.
--- NOTE | 2019-09-25 06:07 | NUR ---
pt RESTING IN BED, AWAKENS EASILY TO VOICE. SCHEDULED MEDICATION ADMINISTERED. COFFEE PROVIDED. INDEPENDENT TO RESTROOM. BREAKFAST ORDER TAKEN BY THIS RN. NO ADDITIONAL REQUESTS.
--- NOTE | 2019-09-25 06:08 | NUR ---
pt APPEARED TO REST WELL THIS SHIFT. C/O NAUSEA AT START OF SHIFT, PRN MEDICATION X 1. INDEPENDENT IN ROOM. LOOSE BM NOTED. NO IV ACCESS. PLAN TO D/C TO [facility] TODAY.
--- NOTE | 2019-09-25 07:27 | NUR ---
pt resting soundly at time of shift change. awakens soon after, up to the chair denies discomforts or needs of
--- NOTE | 2019-09-25 09:00 | NUR ---
Called and spoke with [facility]. Ask to confirm they are accepting this pt today. She again, states she is not sure. Reminded pt has been discharged and will need to admit to them today as planned on Wednesday. She states she will call me back.
--- NOTE | 2019-09-25 09:20 | NUR ---
PT EATS 100% OF MORNING MEAL C/O SOME ABDOMINAL DISCOMFORT. SHE IS UNCERTAIN OF WHEN SHE HAD A GOOD BM LAST, DISCUSSED THIS WITH HER AT LENGTH. MIRALAX GIVEN PER ORDERS. PT HAS HAD VISITORS X2 THIS SHIFT, REMAINS UP IN THE CHAIR
--- NOTE | 2019-09-25 10:00 | NUR ---
PATIENT IND IN ROOM. PATIENT WANTS TO DO SHOWER TONIGHT AT FACILITY SHE IS BEING DC'D TO. FRESH WATER GIVEN. PATIENT DID AM AND ORAL CARE AT SINK. CALL LIGHT IN REACH. NO FURTHER NEEDS AT THIS TIME.
--- NOTE | 2019-09-25 10:20 | NUR ---
Call from [facility] and she states [facility] has accepted this pt. Son will transport pt at 1330. She is requesting 10 days of medications for this pt. Informed our pharmacy is not a retail pharmacy and I can ask Dr. Handy for rx for meds until their mail order pharmacy can obtain meds. Dr. Handy notified and rx written. Discharge summary, covid test, and rx's faxed to [facility]. Rn notified pt will dc at 1330.
[2019-09-25] MEDS ORDERED: ATORVASTATIN CA40 MG PO (10:31)
[2019-09-25] MEDS ORDERED: ISOSORBIDE MONO30 MG PO (10:31)
[2019-09-25] MEDS ORDERED: REMERON15 MG PO (10:31)
[2019-09-25] MEDS ORDERED: LEVOTHYROXINE125 MCG PO (10:31)
[2019-09-25] MEDS ORDERED: CLOPIDOGREL75 MG PO (10:31)
[2019-09-25] MEDS ORDERED: METOPROLOL TART25 MG PO (10:31)
--- NOTE | 2019-09-25 10:51 | NUR ---
CALLED SON [facility] TO GET INFORMATION ABOUT DISCHARGE TRANSPORTATION. HE WILL BE HERE JUST AFTER ONE P.M. TO IMPREGNATION OPERATOR HIS MOM. HE HAS SOME CLOTHES FOR HER AND ALSO NEEDS TO SIGN SOME PAPERS AT [facility].
--- NOTE | 2019-09-25 11:27 | NUR ---
Met with pt for dc instructions, she asks appropriate questions vrbalizes understanding. Written copy provided for her as well as facility. POST reveiwed and signed. Pt denies further questions
--- NOTE | 2019-09-25 11:45 | NUR ---
In to retrieve medicare letter and survey I had given pt last week. She states she is so very pleased with her care. States she realizes she will never live alone again, but this is a new phase in her life. I wished her well and she plans on dc to [facility] at 1330 with her son.
== END 2019-09-25 01:40 | DRG 177 ==
LOC: CCU 10:55 → MS 09-20 17:01
PROVIDERS: ADMIT Student in an Organized Health Care Education/Training Program
DX: U07.1 COVID-19 (principal); J12.89 Other viral pneumonia; E03.9 Hypothyroidism, unspecified; N18.9 Chronic kidney disease, unspecified; I25.2 Old myocardial infarction; E78.5 Hyperlipidemia, unspecified; I25.10 Atherosclerotic heart disease of native coronary artery without angina pectoris; F39 Unspecified mood [affective] disorder; F43.21 Adjustment disorder with depressed mood; Z88.2 Allergy status to sulfonamides; Z86.73 Personal history of transient ischemic attack (TIA), and cerebral infarction without residual deficits; Z88.5 Allergy status to narcotic agent; Z79.02 Long term (current) use of antithrombotics/antiplatelets; Z79.899 Other long term (current) drug therapy
CPT/HCPCS: 97110; 97116; 97162; 97165; 97530; C9803; J1650; J2405; U0002

== ENCOUNTER 2021-02-11 16:43 | Emergency (ER) | payer MEDICARE, OTHER ==
[~2021-02-11] VITALS: Ht 167.6 cm; Wt 54.0 kg
[~2021-02-11 16:43] MED LIST changes: +POLYETHYLENE GL17 GM PO
--- NOTE | 2021-02-11 19:09 | EKG ---
[facility] [address] [facility] [place] [address] Signed Normal sinus rhythm T wave abnormality, consider inferolateral ischemia Abnormal ECG When compared with ECG of 05-AUG-2019 13:45, premature ventricular complexes are no longer present T wave inversion now evident in Lateral leads Confirmed by VALENTINA SANTOS MD ([id number]) on 02/11/2021 7:09:17 PM Electronically Signed By: VALENTINA SANTOS MD 02/11/21 1909 PATIENT NAME: DAMIR ALEJANDRO MICHELLE Electrocardiogram DATE OF : 34 PHYSICIAN: VALENTINA SANTOS MD REPORT #: [id number] REPORT IS CONFIDENTIAL AND NOT TO BE RELEASED WITHOUT AUTHORIZATION
[2021-02-14] MEDS ORDERED: NITROGLYCERIN0.4 MG SL (16:46)
[2021-02-14] MEDS ORDERED: LEVOTHYROXINE100 MCG PO (16:46)
[2021-02-15] MEDS ORDERED: PEPCID AC20 MG PO (16:33)
[2021-02-15] MEDS ORDERED: ATORVASTATIN CA40 MG PO (16:34)
[2021-02-15] MEDS ORDERED: MIRALAX119 GM PO (16:35)
[2021-02-15] MEDS ORDERED: TYLENOL325 MG PO (16:35)
[2021-02-15] MEDS ORDERED: MILK OF MA400 MG/5 M PO (16:36)
== END 2021-02-11 19:21 | disposition short-term general hospital (02) ==
LOC: ED 16:43
DX: I21.4 Non-ST elevation (NSTEMI) myocardial infarction (principal); E03.9 Hypothyroidism, unspecified; I25.2 Old myocardial infarction; Z86.73 Personal history of transient ischemic attack (TIA), and cerebral infarction without residual deficits; Z90.49 Acquired absence of other specified parts of digestive tract; Z95.5 Presence of coronary angioplasty implant and graft; Z88.2 Allergy status to sulfonamides; Z88.5 Allergy status to narcotic agent; Z88.8 Allergy status to other drugs, medicaments and biological substances; Z79.899 Other long term (current) drug therapy; Z79.02 Long term (current) use of antithrombotics/antiplatelets
CPT/HCPCS: 71045; 80053; 83690; 83735; 84484; 85025; 93005; 93010; 96374; 96375; 96376; 99285-25; C9803; J1650; J2270; J2405; U0003

== ENCOUNTER 2021-02-20 04:42 | Emergency (ER) | payer MEDICARE, OTHER ==
[~2021-02-20] VITALS: Ht 167.6 cm; Wt 55.9 kg
[~2021-02-20 04:42] MED LIST changes: +ACETAMINOPHEN500 MG PO; +ARTHRITIS PAIN100 GM TOP; +LIDOCAINE1 EAC1 TOP; +MILK OF MA400 MG/5 M PO; +MIRALAX119 GM PO; +NITROGLYCERIN0.4 MG SL; +ONDANSETRON ODT4 MG SL; +OXYCODONE HCL5 MG PO; +PANTOPRAZOLE SO40 MG PO; +PEPCID AC20 MG PO; +SUCRALFATE1 GM PO; +TYLENOL325 MG PO
--- NOTE | 2021-02-20 20:27 | EKG ---
[facility] [address] [facility] [place] [address] Signed Sinus rhythm with frequent premature ventricular complexes Possible Left atrial enlargement Left axis deviation Left ventricular hypertrophy with repolarization abnormality ( [place] product ) Abnormal ECG When compared with ECG of 15-FEB-2021 09:59, premature ventricular complexes are now present Confirmed by AMY CONNELL DO ([id number]) on 02/20/2021 8:27:14 PM Electronically Signed By: AMY CONNELL DO 02/20/212026 PATIENT NAME: DAMIR ALEJANDRO MICHELLE Electrocardiogram DATE OF : 34 PHYSICIAN: AMY CONNELL DO REPORT #: [id number] REPORT IS CONFIDENTIAL AND NOT TO BE RELEASED WITHOUT AUTHORIZATION
--- NOTE | 2021-02-20 20:28 | EKG ---
[facility] [address] [facility] [place], [place] [address] Signed Normal sinus rhythm Possible Left atrial enlargement Left ventricular hypertrophy with repolarization abnormality ( [place] product ) Abnormal ECG When compared with ECG of 20-FEB-2021 04:54, (Unconfirmed) premature ventricular complexes are no longer present Confirmed by AMY CONNELL DO ([id number]) on 02/20/2021 8:28:04 PM Electronically Signed By: AMY CONNELL DO 02/20/212027 PATIENT NAME: DAMIR ALEJANDRO MICHELLE Electrocardiogram DATE OF : 34 PHYSICIAN: AMY CONNELL DO REPORT #: [id number] REPORT IS CONFIDENTIAL AND NOT TO BE RELEASED WITHOUT AUTHORIZATION
== END 2021-02-20 09:04 | disposition short-term general hospital (02) ==
LOC: ED 04:42
DX: I21.4 Non-ST elevation (NSTEMI) myocardial infarction (principal); E87.6 Hypokalemia; E03.9 Hypothyroidism, unspecified; I25.2 Old myocardial infarction; Z88.2 Allergy status to sulfonamides; Z88.5 Allergy status to narcotic agent; Z79.899 Other long term (current) drug therapy
CPT/HCPCS: 71045; 74150; 80053; 83605; 83690; 83735; 84484; 85025; 93005; 93010; 96374; 96375; 96376; 99285-25; C9803; J1170; J1644; J2405; U0003

== ENCOUNTER 2021-03-18 22:02 | Emergency (ER) | payer MEDICARE, OTHER ==
[~2021-03-18] VITALS: Ht 167.6 cm; Wt 55.9 kg
[2021-03-18] MEDS ORDERED: ASPIRIN81 MG PO (23:11)
[2021-03-18] MEDS ORDERED: DULOXETINE HCL30 MG PO (23:12)
[2021-03-18] MEDS ORDERED: FAMOTIDINE20 MG PO (23:13)
[2021-03-18] MEDS ORDERED: LOSARTAN POTAS100 MG PO (23:15)
[2021-03-18] MEDS ORDERED: ALDACTONE25 MG PO (23:16)
[2021-03-18] MEDS ORDERED: SENNA-S TABLET1 EACH PO (23:18)
[2021-03-18] MEDS ORDERED: SODIUM CHLORI1000 MG MISC (23:18)
[2021-03-18] MEDS ORDERED: CALCIUM CARBON500 MG PO (23:19)
[2021-03-18] MEDS ORDERED: HYDROCODON-ACE1 EA10 PO (23:20)
[2021-03-19] MEDS ORDERED: CEPHALEXIN500 MG PO (02:21)
== END 2021-03-19 03:06 | disposition home or self-care (01) ==
LOC: ED 22:02
DX: N39.0 Urinary tract infection, site not specified (principal); R77.8 Other specified abnormalities of plasma proteins; E03.9 Hypothyroidism, unspecified; I25.2 Old myocardial infarction; Z88.2 Allergy status to sulfonamides; Z88.5 Allergy status to narcotic agent; Z79.899 Other long term (current) drug therapy
CPT/HCPCS: 51702; 74177; 80053; 81001; 83690; 84484; 85025; 99284-25; J1170; J2405; Q9967

== ENCOUNTER 2021-04-08 21:53 | Emergency (ER) | payer MEDICARE, OTHER ==
[~2021-04-08] VITALS: Ht 167.6 cm; Wt 57.0 kg
[~2021-04-08 21:53] MED LIST changes: +ALDACTONE25 MG PO; +ASPIRIN81 MG PO; +CALCIUM CARBON500 MG PO; +CEPHALEXIN500 MG PO; +DULOXETINE HCL30 MG PO; +HYDROCODON-ACE1 EA10 PO; +LOSARTAN POTAS100 MG PO; +SENNA-S TABLET1 EACH PO; +SODIUM CHLORI1000 MG MISC
--- NOTE | 2021-04-10 12:50 | EKG ---
[facility] [address] [facility] [place] [address] Signed Normal sinus rhythm Left axis deviation Minimal voltage criteria for LVH, may be normal variant ( Gray product ) ST \T\ T wave abnormality, consider lateral ischemia Abnormal ECG When compared with ECG of 20-FEB-2021 05:43, No significant change was found Confirmed by AMY CONNELL DO ([id number]) on 04/10/2021 12:50:35 PM Electronically Signed By: AMY CONNELL DO 04/10/21 1250 PATIENT NAME: DAMIR ALEJANDRO Electrocardiogram DATE OF : 34 PHYSICIAN: AMY CONNELL DO REPORT #: [id number] REPORT IS CONFIDENTIAL AND NOT TO BE RELEASED WITHOUT AUTHORIZATION
== END 2021-04-09 01:27 | disposition home or self-care (01) ==
LOC: ED 21:53
DX: R07.89 Other chest pain (principal); R77.8 Other specified abnormalities of plasma proteins; E03.9 Hypothyroidism, unspecified; I25.2 Old myocardial infarction; Z86.73 Personal history of transient ischemic attack (TIA), and cerebral infarction without residual deficits; Z88.2 Allergy status to sulfonamides; Z88.5 Allergy status to narcotic agent; Z88.8 Allergy status to other drugs, medicaments and biological substances; Z79.899 Other long term (current) drug therapy; Z79.82 Long term (current) use of aspirin
CPT/HCPCS: 71045; 80053; 83735; 83880; 84484; 85025; 85730; 93005; 93010; 99285-25

== ENCOUNTER 2021-10-15 13:46 | Observation (INO) | payer MEDICARE, OTHER ==
[~2021-10-15] VITALS: Ht 167.6 cm; Wt 51.9 kg
--- NOTE | 2021-10-15 20:58 | NUR ---
PT TO ROOM 113 FROM ER.
--- NOTE | 2021-10-15 21:00 | NUR ---
PT ADMITTED TO ROOM 113 FROM ED. MOVED SELF OVER FROM STETCHER TO BED, A/O, RA. REMEMBERS HER TIME HERE WHEN SHE HAD COVID, AND HER TITUS , EMOTIONAL, STATES IT WAS NOT A GOOD YEAR 2020. LIVES AT [facility]. AWARE OF HOW TO USE CALL LIGHT.
--- NOTE | 2021-10-15 21:30 | NUR ---
PT ABLE TO TAKE MEDICATIONS WITHOUT DIFFICULTY. DENIES NAUSEA, OR PAIN AT THIS TIME.
--- NOTE | 2021-10-16 01:29 | NUR ---
PT ASSIST TO BSC TO VOID 700 ML OF STRONG ODOR URINE, VITALS COMPLETE - PT DENIES NEEDS - BACK TO BED WITH BED ALARM ON, CALL LIGHT IN REACH. IV FUSING.
--- NOTE | 2021-10-16 05:30 | NUR ---
eyes closed, resp rate even, call light in reach.
[2021-10-16] MEDS ORDERED: ESCITALOPRAM OX10 MG PO (07:35)
[2021-10-16] MEDS ORDERED: LEVOTHYROXINE125 MCG PO (07:36)
[2021-10-16] MEDS ORDERED: LOSARTAN POTASS50 MG PO (07:37)
[2021-10-16] MEDS ORDERED: METOPROLOL SUCC50 MG PO (07:38)
[2021-10-16] MEDS ORDERED: TAMSULOSIN HCL0.4 MG PO (07:39)
--- NOTE | 2021-10-16 07:51 | NUR ---
REPORT RECEIVED FROM NIGHT RN - PT AWAKE IN BED, DENIES NEEDS AT THIS TIME. CALL LIGHT IN REACH.
--- NOTE | 2021-10-16 08:55 | NUR ---
PT IS SITTING UP IN BED. I&O AND VS CHARTED. CALL LIGHT WITHIN REACH
[2021-10-16] MEDS ORDERED: LOW DOSE ASPIRI81 MG PO (09:05)
[2021-10-16] MEDS ORDERED: PROBIOTIC FORM1 EAC1 PO (09:08)
[2021-10-16] MEDS ORDERED: SENNA-DOCUSATE1 EAC1 PO (09:10)
[2021-10-16] MEDS ORDERED: MAGNESIUM OXID400 M1 PO (09:12)
[2021-10-16] MEDS ORDERED: TYLENOL EXTRA500 MG PO (09:16)
[2021-10-16] MEDS ORDERED: LOPERAMIDE2 M1 PO (09:18)
[2021-10-16] MEDS ORDERED: ONDANSETRON ODT8 MG PO (09:19)
--- NOTE | 2021-10-16 09:27 | CONS ---
[facility] [address], [place] [address] Signed DATE OF CONSULTATION: 10/16/2021 CHIEF COMPLAINT: Anemia. HISTORY OF PRESENT ILLNESS: Damir is an 89-year-old female, well known in our community. She is quite frail and resides at [facility]. She was complaining of some head pain and feeling dizzy and is known to be on anticoagulation. Consequently, she was brought to the emergency room. In the emergency room, the CT scan of her head shows the right mastoid effusion along with the chronic ischemic changes to her brain. Chest x-ray showed what appears to be COPD and moderate to large hiatal hernia. CT scan of the abdomen and pelvis showed what might be some early diverticulitis along with moderate to large hiatal hernia. There was no abdominal aortic aneurysm or other concern. She is clearly anemic with a hemoglobin around 7.9 and a mean cell volume of 82. She also has bacteria in the urine. She has a chronic elevated troponin level. The ER doctor did a rectal exam and apparently it was guaiac positive. Again, she is on anticoagulation. She has been admitted to the Internal Medicine Service. I was asked to see her for consideration of upper endoscopy. In talking with the patient this morning, she was pleasant, cooperative, but did not seem to have much insight. PAST MEDICAL HISTORY: 1. Pancreatitis. 2. Hypothyroidism. 3. Osteoporosis. 4. Osteoarthritis. 5. IA. 6. Stroke. 7. Diverticulitis. 8. GI bleed. 9. COPD. PAST SURGICAL HISTORY: 1. Cholecystectomy. 2. Cardiac stents x2. 3. Bowel surgeries. SOCIAL HISTORY: She told me she never smoked. She said her smoked once in a while. She does not drink. She resides at [facility]. She prefers the [facility]. Her son is Godfrey Alejandro at [phone]. Dieter Subramanian is her primary care provider. FAMILY HISTORY: Electronically Signed By: MICHELLE MCRAE MD 10/16/21 0927 PATIENT NAME: DAMIR ALEJANDRO CONSULTATION DATE OF : 34 REPORT #: [id number] PHYSICIAN: MICHELLE MCRAE MD PCP: DIETER SUBRAMANIAN MD REPORT IS CONFIDENTIAL AND NOT TO BE RELEASED WITHOUT AUTHORIZATION [facility] [address] [place] [id number] Signed None. REVIEW OF SYSTEMS: We did our best to review 10 systems with her but she is not very insightful. ALLERGIES: 1. Sulfa. 2. Codeine. 3. Sulfacetamide. MEDICATIONS: 1. Isosorbide. 2. Metoprolol. 3. Tylenol. 4. Sucralfate. 5. Protonix. 6. Plavix. 7. Polyethylene glycol. 8. Lidocaine. 9. Zofran. 10. Dorzolamide. 11. Nitroglycerin. 12. Levothyroxine. 13. Atorvastatin. 14. Milk of magnesia. 15. Aspirin. 16. Duloxetine. 17. Pepcid. 18. Senna. 19. Tums. 20. [place]. PHYSICAL EXAMINATION: VITAL SIGNS: Her blood pressure is 136/59, heart rate 65, respiratory rate 16, temperature is 97.9, 99% on room air. She is 5 feet 6 inches tall, 51 kg. GENERAL: Damir is an 89-year-old elderly quite frail lady lying supine in her hospital bed. She has very little muscle mass. She does not appear to be in any acute distress. LUNGS: Clear to auscultation bilaterally. HEART: Regular rate and rhythm without murmurs. ABDOMEN: Soft, flat, and nontender. LABORATORY DATA: Her white blood cell count is 5, hemoglobin was 8.5, it is now 7.9 after IV fluids. Mean cell volume is 82, platelets are 357. Her BUN is 25, creatinine is 1.6. Urinalysis Electronically Signed By: MICHELLE MCRAE MD 10/16/21 0927 PATIENT NAME: DAMIR ALEJANDRO CONSULTATION DATE OF : 34 REPORT #: [id number] PHYSICIAN: MICHELLE MCRAE MD PCP: DIETER SUBRAMANIAN MD REPORT IS CONFIDENTIAL AND NOT TO BE RELEASED WITHOUT AUTHORIZATION [address] [address] Signed showed some bacteria. She has a chronically elevated troponin level. Her COVID was negative. RADIOGRAPHIC STUDIES: A chest x-ray apparently showed COPD with a hiatal hernia. CT scan of the head shows the right mastoid effusion with chronic ischemic changes to the brain. The CT scan of abdomen and pelvis does not show abdominal aortic aneurysm. She does have a eluoggzq-da-qpgge hiatal hernia with possibly a little thickening in the antrum. She may have some early diverticulitis. ASSESSMENT AND PLAN: Damir is an 89-year-old very frail lady, who certainly has acute on chronic anemia. Whether or not that is associated with the hiatal hernia is hard to know. I did my best to talk to her about an upper endoscopy and she just could not provide any insight whatsoever. She is not sure if she has had colonoscopy in the past. Consequently, we are going to have to talk to the medical service as well as her son Godfrey. She is getting to a point where there may be more risk than benefit given her advanced age and frail nature. Michelle Mcrae MD ALB/MODL /[id number] cc: MD Dieter Márquez MD Copies: MICHELLE MCRAE MD, RUSSELL BARR MD ~ Electronically Signed By: MICHELLE MCRAE MD 10/16/21 0927 PATIENT NAME: DAMIR ALEJANDRO CONSULTATION DATE OF : 34 REPORT #: [id number] PHYSICIAN: MICHELLE MCRAE MD PCP: DIETER SUBRAMANIAN MD REPORT IS CONFIDENTIAL AND NOT TO BE RELEASED WITHOUT AUTHORIZATION
--- NOTE | 2021-10-16 10:13 | NUR ---
RN IN ROOM TO ASSESS PT AND ADMINISTER SCHEDULED MEDICATIONS. PT RESTING IN BED WITH DAUGHTER AT BEDSIDE. PT CURRENTLY NPO - PROVIDED SMALL SIPS TO TAKE AM MEDS. PT DENIES PAIN AT THIS TIME, BUT TENDER ON ABD PALPATION. PT STATES BURNING WITH URNIATION X 2 WEEKS WITH FREQUENT VOIDS AT NIGHT BUT NOT DURING DAY. IV SITE TOLERATING INFUSION WITHOUT DIFFICULTY. PT DENIES CP OR SOB. VS STABLE, ON ROOM AIR. PT DENIES FURTHER NEEDS, WILL KEEP PT AND DAUGHTER UPDATED WITH PLAN OF CARE ONCE RN AWARE. CALL LIGHT AND TABLE WITHIN REACH.
--- NOTE | 2021-10-16 11:00 | NUR ---
Attempted to see pt. She is sleeping. Not awakened.
--- NOTE | 2021-10-16 11:05 | NUR ---
IV PUMP ALARMING, IV FLUID BAG EMPTY. NEW BAG HUNG (SEE MAR). IV ASSESSED, WNL. NO S/S/ OF PHLEBITIS NOTED. PT RESTING WITH EYES CLOSED. RESPRIATIONS EVEN AND UNLABORED. BED RAILS UP. CALL LIGHT WITHIN REACH.
--- NOTE | 2021-10-16 11:45 | NUR ---
RN ROUNDING ON PT - ASLEEP IN BED, RR EVEN AND UNLABORED. PT ADAVANCED TO REGULAR DIET PER SUPPORT MANAGER BY DR. KABA, DID NOT WAKE PT TO TELL HER, WATER CUP FILLED AND PLACED AT BEDSIDE.
--- NOTE | 2021-10-16 14:00 | NUR ---
Spoke with pt and she states she is now living at [facility]. She is now using a wc all of the time. Staff assist her with dressing and kwon sfers. She denies any needs and all care is provided by staff. Plans on return to [facility] when she discharges.
--- NOTE | 2021-10-16 14:17 | NUR ---
PT ALERT,ORIENTED AND SITTING IN CHAIR WITH TV ON. HAD PLEASANT VISIT NO C/O NEEDS OR ISSUES. GAVE BLESSING AND INFORMED RN DARIELA THAT PTS' IV ALARM IS SOUNDING. SHE RESPONDED
--- NOTE | 2021-10-16 14:31 | NUR ---
RN IN ROOM TO ASSESS PT - PT RESTING IN CHAIR WATCHING TV UPON ENTRY. PT UPDATED ON PLAN OF CARE, UNFORTUNELTY LUNCH WAS NOT DELIVERED TO HER DESPITE REGULAR DIET ROVING COURT REPORTER AT 1100. DIETARY CALLED AND TRAY DELIVERED. PT REPORTS CONTINUED DYSURIA, DENIES ALL OTHER COMPLAINTS. 1PERSON STANDBY ASSIST, NON SYMPTOMATIC WITH LOW H/H. CALL LIGHT IN REACH, WARM BLANKETS PROVIDED.
--- NOTE | 2021-10-16 14:51 | NUR ---
ATTEMPTED TO RETURN RAUL'S PHONE CALL AT [facility] - NO ANSWER.
--- NOTE | 2021-10-16 15:54 | EKG ---
[facility] [address] [place] [facility] [place] [address] Signed Sinus bradycardia Nonspecific T wave abnormality Abnormal ECG When compared with ECG of 08-APR-2021 22:00, Nonspecific T wave abnormality has replaced inverted T waves in Lateral leads Confirmed by KERRIE KABA MD ([id number]) on 10/16/2021 3:54:47 PM Electronically Signed By: KERRIE KABA MD 10/16/21 1554 PATIENT NAME: DAMIR ALEJANDRO MICHELLE Electrocardiogram DATE OF : 34 PHYSICIAN: KERRIE KABA MD REPORT #: [id number] REPORT IS CONFIDENTIAL AND NOT TO BE RELEASED WITHOUT AUTHORIZATION
--- NOTE | 2021-10-16 16:21 | NUR ---
RN IN ROOM TO ROUND ON PT AND ADMINISTER NEWLY ORDERED MEDS. PT VISITING WITH DAUGHTER AT BEDSIDE. DAUGHTER UPDATED ON PLAN OF CARE, STATES UNDERSTANDING. PT DENIES FURTHER NEEDS, CALL LIGHT IN REACH.
--- NOTE | 2021-10-16 18:37 | NUR ---
RN ROUNDING ON PT - PT UP IN CHAIR FINISHED WITH DINNER. PT UP TO BATHROOM WITH DISTILLERY SUPERVISOR HELP. DENIES FURTHER NEEDS AT THIS TIME.
--- NOTE | 2021-10-16 23:13 | NUR ---
PT RESTING IN BED AFTER hs CARES COMPLETE INDEPENDANTLY WITH SET UP.
--- NOTE | 2021-10-17 01:58 | NUR ---
pt resting in bed with eyes closed call light in reach, bedside table with water and personal belonging within reach
--- NOTE | 2021-10-17 07:36 | NUR ---
REPORT RECIEVED FROM NIGHT RN - PT UP AMBULATING IN BATHROOM WITH PIPEMAN ASSISTANCE. DENIES NEEDS AT THIS TIME.
--- NOTE | 2021-10-17 09:50 | NUR ---
RN IN ROOM TO ASSESS PT AND ADMINISTER SCHEDULED MEDICATIONS. PT IN BED VISITING WITH DAUGHTER UPON ENTRY. PT REPORTS BACK PAIN IS IMPROVED CONSIDERABLY WITH ULTRAM, WOULD LIKE TO TRY FULL DOSE. BURNING WITH URINATION AND FREQUENCY HAS IMPROVED PER PT. ALSO LESS TENDER IN LOWER ABDOMINAL AREA. IV SITE TOLERATING FLUID INFUSION WIHTOUT DIFFICULTY. SCDS IN PLACE. CALL LIGHT AND TABLE IN REACH.
--- NOTE | 2021-10-17 11:17 | NUR ---
RN IN ROOM ROUNDING ON PT AND ADMINISTERED SCHEDULED MEDICATIONS. PT RESTING IN BED WORKING ON WORD PUZZLES. DENIES FURTHER NEEDS.
[2021-10-17] MEDS ORDERED: CEPHALEXIN500 MG PO (12:13)
[2021-10-17] MEDS ORDERED: TRAMADOL HCL50 MG PO (12:14)
[2021-10-17] MEDS ORDERED: FERROUS SULFAT325 MG PO (12:15)
[2021-10-17] MEDS ORDERED: LACTULOSE10 GM/15 M PO (12:16)
--- NOTE | 2021-10-17 12:17 | NUR ---
PT ALERT, ORIENTED AND READING. PT SAID SHE IS FEELING BETTER, JULIAN REYES IN TO CARE FOR PT. GAVE ENCOURAGEMENT AND BLESSING. WILL FOLLOW
--- NOTE | 2021-10-17 12:18 | NUR ---
RN ROUNDING ON PT - PT UP IN BED EATING LUNCH. MD ROUNDED ON PT AND PROVIDED DC ORDERS. DAUGHTER LIZ NOTIFIED, PT DENIES QUESTIONS AT THIS TIME.
[2021-10-17] MEDS ORDERED: ADULT ASPIRIN R81 MG PO (12:20)
--- NOTE | 2021-10-17 12:58 | NUR ---
RN IN ROOM TO PREPARE PT FOR DC. PT ASSISTED WITH DRESSING, IV DC'D.
--- NOTE | 2021-10-17 13:06 | NUR ---
REPORT CALLED TO SHREYA ZAMUDIO.
== END 2021-10-17 13:25 | disposition home or self-care (01) ==
LOC: ED 13:46 → MS 13:47
PROVIDERS: ADMIT Internal Medicine; ATTEND Internal Medicine
DX: D64.9 Anemia, unspecified (principal); I25.2 Old myocardial infarction; E03.9 Hypothyroidism, unspecified; M81.0 Age-related osteoporosis without current pathological fracture; I25.10 Atherosclerotic heart disease of native coronary artery without angina pectoris; N30.90 Cystitis, unspecified without hematuria; I10 Essential (primary) hypertension; E78.5 Hyperlipidemia, unspecified; G89.29 Other chronic pain; N17.9 Acute kidney failure, unspecified; E87.1 Hypo-osmolality and hyponatremia; J44.9 Chronic obstructive pulmonary disease, unspecified; M54.9 Dorsalgia, unspecified; Z95.5 Presence of coronary angioplasty implant and graft; Z86.73 Personal history of transient ischemic attack (TIA), and cerebral infarction without residual deficits; Z90.49 Acquired absence of other specified parts of digestive tract; Z88.2 Allergy status to sulfonamides; Z66 Do not resuscitate; Z88.5 Allergy status to narcotic agent; Z79.82 Long term (current) use of aspirin; Z20.822 Contact with and (suspected) exposure to COVID-19
CPT/HCPCS: 36415; 70450; 71045; 74176; 80048; 80053; 81001; 82728; 83540; 83550; 84484; 85025; 85610; 85730; 86850; 86900; 86901; 87088; 87502; 93005; 93010; A9270; C9113; J7030; U0003

== ENCOUNTER 2022-08-24 07:23 | Emergency (ER) | payer MEDICARE, OTHER ==
[~2022-08-24] VITALS: Ht 157.5 cm; Wt 49.7 kg
[~2022-08-24 07:23] MED LIST changes: +ADULT ASPIRIN R81 MG PO; +ESCITALOPRAM OX10 MG PO; +FERROUS SULFAT325 MG PO; +LACTULOSE10 GM/15 M PO; +LOPERAMIDE2 M1 PO; +LOSARTAN POTASS50 MG PO; +LOW DOSE ASPIRI81 MG PO; +MAGNESIUM OXID400 M1 PO; +METOPROLOL SUCC50 MG PO; +ONDANSETRON ODT8 MG PO; +PROBIOTIC FORM1 EAC1 PO; +SENNA-DOCUSATE1 EAC1 PO; +TAMSULOSIN HCL0.4 MG PO; +TYLENOL EXTRA500 MG PO
[2022-08-24 07:31] VITALS: BP 137/70
== END 2022-08-24 08:45 | disposition home or self-care (01) ==
LOC: ED 07:23
DX: S42.211A Unspecified displaced fracture of surgical neck of right humerus, initial encounter for closed fracture (principal); X58.XXXA Exposure to other specified factors, initial encounter; E03.9 Hypothyroidism, unspecified; M19.90 Unspecified osteoarthritis, unspecified site; I25.2 Old myocardial infarction; Z88.2 Allergy status to sulfonamides; Z88.5 Allergy status to narcotic agent; Z79.899 Other long term (current) drug therapy; Z88.8 Allergy status to other drugs, medicaments and biological substances; Z79.82 Long term (current) use of aspirin
CPT/HCPCS: 73060; 99283-25; A9270